=== PATIENT | female | born 1940 | race Caucasian/White ===

== ENCOUNTER 2017-05-01 12:00 | Outpatient (RCR) | payer MEDICARE, OTHER, SELFPAY ==
--- NOTE | 2017-03-31 15:33 | HP.PTEVAL_ITS ---
Patient's Visit Information Jose SAMPSON is a 77 year old F referred to Physical Therapy by Hussein HERRERA with a diagnosis of R tibial stress Fx. Date of Evaluation: 03/31/17 Physical Therapist: Zaire Menendez, PT, - Visit Plan Frequency: 2x /Week Duration: 4-6 Weeks Plan: Aquatic therapy consisting of R LE strengthening, AROM, stretching and core stabilization ex's. - Subjective Subjective: Pt reports she woke up with severe pain in her R ayers one morning. Pt notes her pain had an insidious onset in nature. Pt reports after having an Xray and MRI, it was revealed she had a stress fracture in her R tibia. Pt reports she did go to [place] in December, and notes she did do a lot of walking which may have increased her pain. Pt has no LE radiculopathy at this time. Pt notes sleep diff secondary to pain. Pt reports all WB'ing acitivity provokes her pain. Pt reports resting it, taking Aleve, and icing it helps to make it feel better. Pt does have stairs at home, negotiates them one step at a time. 5/10 at rest, 10/10 at worst (walking on it a lot) - Pain R knee Pain Intensity (Out of 10): 5 Pain Intensity Range: 10 - Objective Neuro: B LE sensation is WNL to light touch. B achilles reflex= 1/3. Palpation : Pt is very tender along the ant/med tibia. No obvious deformity noted at this time. Girth at joint line: L knee 36 cm, R knee 38 cm. ROM: L knee 0-130 degrees, R knee 0-10-130 degrees. MMT: L knee 5/5 throughout, R knee 3+/5 and painful with all testing - Goals Goal 1:: Decrease R knee pain x 50% to aid with sleep Goal Time Frame: 4-6 Weeks Goal 2:: Increase R knee ext ROM x 5-10 degrees to aid with restoring a more normalized gait pattern Goal Time Frame: 4-6 Weeks Goal 3:: Increase R knee strength x 1 grade to aid with stair negotiation Goal Time Frame: 4-6 Weeks Goal 4:: I with HEP Goal Time Frame: 4-6 Weeks - Rehabilitation Potential Physical Therapy Diagnosis: R LE pain, weakness, and limited mobility secondary to L tibial stress Fx Rehabilitation Potential: Good - Anticipated Interventions Patient/Client Instruction: Educate patient on: Condition, Plan of Care For the Purpose of:: To improve self management Therapeutic Exercise to Include: Strength training, Endurance training, Flexibilty training, In an aquatic setting, Dynamic Lumbar Stabilization For the Purpose of:: To decrease pain, To increase ROM, To improve muscle performance and motor function Thank you for the opportunity to evaluate your patient. For Medicare and Medicare HMO plans, please review the plan of care and approve it. It will need to be FAXED BACK to us at [phone] for Medicare purposes. Please let me know if there are questions or concerns regarding this plan of care. Physician Signature: Date:
--- NOTE | 2017-05-01 12:26 | HP.PTDCSUM_ITS ---
HP - PT D/C Summary It has been my pleasure to treat Jose SAMPSON under orders from DR.CRANNE Nicholas for the diagnosis of R tibial stress Fx for a total of 9 visit (s). Discharge Date: Please see the following information for a summary of their discharge status. - Subjective Subjective: Pt reports mild pain this date. Not sure if Rx has been helping - Pain R knee Pain Intensity (Out of 10): 3 - Objective Objective/Function: R knee pain 05/17 this date. R knee ext ROM= -2 degrees. R knee strength: flex= 5/5, ext= 4/5. Pt is I with HEP. Pt is still progressing towards Rx goals for strength and pain - Goals Goal 1:: Decrease R knee pain x 50% to aid with sleep Goal Progress: Progressing Goal 2:: Increase R knee ext ROM x 5-10 degrees to aid with restoring a more normalized gait pattern Goal Progress: Goal Met Goal 3:: Increase R knee strength x 1 grade to aid with stair negotiation Goal Progress: Progressing Goal 4:: I with HEP Goal Progress: Goal Met - Plan Plan: Discontinue to HEP - D/C Information If there are questions or concerns regarding this patient's physical therapy, please feel free to call me at [phone]. Thank you for the referral of this patient. Sincerely, Zaire Menendez, PT,
== END 2017-05-01 19:00 | disposition home or self-care (01) ==
LOC: PT 12:00
PROVIDERS: Family Provider Family Medicine; PCP Family Medicine; Visit Provider Family Medicine
DX: M84.361D Stress fracture, right tibia, subsequent encounter for fracture with routine healing (principal)
CPT/HCPCS: 97113; 97161; 97530

== ENCOUNTER → 2017-05-07 09:52 | Outpatient (CLI) | payer MEDICARE, OTHER, SELFPAY ==
[2017-05-07 13:11] LABS: Anion Gap 10 (5-15); BUN 18 mg/dL (7-18); BUN/Creat Ratio 21.8 RATIO (10-20); Calcium,Total 8.8 mg/dL (8.5-10.1); Chloride 100 mmol/L (98-107); Cholesterol 152 mg/dL (200); Creatinine, Serum 0.83 mg/dL (0.55-1.02); EST Glomerular Filtration Rate 71 mL/min (>60); Est Glom Filt Rate - Afr Amer 86 mL/min (>60); Glucose 218 mg/dL (74-106); High Density Lipoprotein 51 mg/dL; Potassium 3.5 mmol/L (3.5-5.1); Sodium Level 139 mmol/L (136-145); Triglycerides 184 mg/dL; Very Low Density Lipoprotein 37 mg/dL (5-40)
[2017-05-07 13:13] LABS: Hemoglobin A1c 9.3 % (4.2-6.3)
== END ==
PROVIDERS: Family Provider Family Medicine; PCP Family Medicine; Visit Provider Family Medicine
DX: E11.9 Type 2 diabetes mellitus without complications (principal); I10 Essential (primary) hypertension; E78.5 Hyperlipidemia, unspecified
CPT/HCPCS: 36415; 80048; 80061; 83036

== ENCOUNTER → 2017-09-18 16:21 | Outpatient (CLI) | payer MEDICARE, OTHER, SELFPAY ==
--- NOTE | 2017-09-18 16:24 | BI_ITS ---
MAMMOGRAPHY - BILATERAL SCREENING REASON FOR EXAM: Female, 77 years old. Routine annual screening examination. PERTINENT HISTORY: Non-contributory. TECHNIQUE: Digital bilateral breast joe (3D mammographic acquisition) in the CC and MLO projections. 2-D mediolateral oblique (MLO) and craniocaudad (CC) views of both breasts were obtained. CAD: Full Field Digital Mammography with Computer Added Detection was performed. COMPARISON: Comparison is made with prior study dated July 15, 2016 and June 23, 2015. FINDINGS: Breast Composition: There are scattered areas of fibroglandular density. There are no dominant masses or suspicious calcifications. No other significant abnormalities are identified. There has been no significant change since the prior study. BI/SCREENING MAMM (CAD), BILAT IMPRESSION: Stable bilateral screening mammogram. Yearly follow-up mammogram recommended. (A) ASSESSMENT CATEGORY: BIRADS Category 1: Negative. A letter regarding these results will be sent to the patient by the facility within 30 days. Approximately 10% of breast cancers are not detected by mammography. A normal mammogram should not delay biopsy of a clinically suspicious abnormality. [id number] Electronically Signed: Magdy Santiago MD at 8:02 EDT Tel [phone], Service support ,
== END ==
PROVIDERS: Family Provider Family Medicine; PCP Family Medicine; Visit Provider Family Medicine
DX: Z12.31 Encounter for screening mammogram for malignant neoplasm of breast (principal)
CPT/HCPCS: 77063; 77067

== ENCOUNTER → 2018-02-26 10:26 | Outpatient (CLI) | payer MEDICARE, OTHER, SELFPAY ==
--- NOTE | 2018-02-26 10:29 | STE_ITS ---
Reason For Study: Chest Pain; LEE Stress Results Protocol: Salvatore Protocol Maximum Predicted HR: 141 bpm Target HR: 120 bpm % Maximum Predicted HR: 57 % Heart Stage Duration Rate BP Comment (mm:ss) (bpm) Baseline 70 122/64No Chest Pain Salvatore Protocol Stage No Chest Pain; Moderate to Severe Dyspnea; Audible I 3:00 70 122/64Wheezes Recovery 81 130/66No Chest Pain; Lungs CTA Stress Duration: 3:00 mm:ss Maximum Stress HR: 81 bpm METS: 4 Baseline Echocardiogram Findings The estimated ejection fraction is 65 %. Stress Echo Wall motion Data Resting WM Intermediate WM Stress WM Resting Wall Motion Wall Motion Stress No regional wall motion No regional wall motion abnormalities noted. abnormalities noted. EKG Data Normal intervals are noted. The patient exercised according to the regular Salvatore protocol for a total duration of 3:00. The maximum heart rate attained was 137 beats per minute. This was 97% of maximum predicted heart rate. The patient exercised into stage 1 of the Salvatore protocol. During stress, there were no ST or T wave changes noted to suggest ischemia. No clinical angina was noted. Interpretation Summary The estimated ejection fraction is 65 %. Normal, adequate, treadmill echocardiogram. Negative for ischemia by EKG and echocardiographic criteria. No anginal symptoms noted. Rare P AC noted. Appropriate blood pressure response to exercise. Poor exercise capacity for age. Test terminated due to dyspnea which may be an anginal equivalent. Final LVEF is 75%. No complications. Ordering Physician: Mat Hercules Referring Physician: Jono Zambrano Performed By: Dany Salazar RCS
== END ==
PROVIDERS: Family Provider Family Medicine; PCP Family Medicine; Referring Provider Family Medicine; Visit Provider Family Medicine
DX: R06.09 Other forms of dyspnea (principal)
CPT/HCPCS: 93017; 93350

== ENCOUNTER → 2018-05-26 11:09 | Outpatient (CLI) | payer MEDICARE, OTHER, SELFPAY ==
[2018-05-26 12:48] LABS: Hemoglobin A1c 8.9 % (4.2-6.3)
[2018-05-26 13:34] LABS: Anion Gap 10 (5-15); BUN 14 mg/dL (7-18); BUN/Creat Ratio 17.3 RATIO (10-20); Calcium,Total 8.7 mg/dL (8.5-10.1); Chloride 102 mmol/L (98-107); Cholesterol 171 mg/dL (200); Creatinine, Serum 0.81 mg/dL (0.55-1.02); EST Glomerular Filtration Rate 73 mL/min (>60); Est Glom Filt Rate - Afr Amer 88 mL/min (>60); Glucose 250 mg/dL (74-106); High Density Lipoprotein 56 mg/dL; Potassium 3.4 mmol/L (3.5-5.1); Sodium Level 139 mmol/L (136-145); Triglycerides 214 mg/dL; Very Low Density Lipoprotein 43 mg/dL (5-40)
== END ==
PROVIDERS: Family Provider Family Medicine; PCP Family Medicine; Referring Provider Family Medicine; Visit Provider Family Medicine
DX: E11.9 Type 2 diabetes mellitus without complications (principal); E78.5 Hyperlipidemia, unspecified
CPT/HCPCS: 36415; 80048; 80061; 83036

== ENCOUNTER → 2018-10-07 | Outpatient (CLI) | payer MEDICARE, OTHER, SELFPAY ==
--- NOTE | 2018-10-07 15:28 | BI_ITS ---
MAMMOGRAPHY - BILATERAL SCREENING REASON FOR EXAM: Female, 78 years old. Routine annual screening examination. PERTINENT HISTORY: Non-contributory. TECHNIQUE: Digital bilateral breast sonia (3D mammographic acquisition) in the CC and MLO projections. 2-D mediolateral oblique (MLO) and craniocaudad (CC) views of both breasts were obtained. CAD: Full Field Digital Mammography with Computer Added Detection was performed. COMPARISON: Comparison is made with prior study dated September 18, 2017 and July 15, 2016. FINDINGS: Breast Composition: There are scattered areas of fibroglandular density. There are no dominant masses or suspicious calcifications. No other significant abnormalities are identified. There has been no significant change since the prior study. BI/SCREEN MAMM (CAD) W/SONIA BILAT IMPRESSION: Stable bilateral screening mammogram. Yearly follow-up mammogram recommended. (A) ASSESSMENT CATEGORY: BIRADS Category 1: Negative. A letter regarding these results will be sent to the patient by the facility within 30 days. Approximately 10% of breast cancers are not detected by mammography. A normal mammogram should not delay biopsy of a clinically suspicious abnormality. [id number] Electronically Signed: Magdy Santiago, at 9:32 EDT , Service support ,
== END | disposition home or self-care (01) ==
LOC: OPBI 15:27
PROVIDERS: Family Provider Family Medicine; PCP Family Medicine; Referring Provider Family Medicine; Visit Provider Family Medicine
DX: Z12.31 Encounter for screening mammogram for malignant neoplasm of breast (principal)
CPT/HCPCS: 77063; 77067

== ENCOUNTER → 2018-12-23 | Outpatient (CLI) | payer MEDICARE, OTHER, SELFPAY ==
[2018-12-23 12:44] LABS: Absolute Lymphocyte Count 1.71 X10^3/uL (0.83-4.51); Absolute Neutrophil Count 2.8 X10^3/uL (2.0-7.7); Basophil# 0.08 X10^3/uL; Basophil% 1.5 % (0-1); Eosinophils% 5.8 % (0-5); Hematocrit 38.6 % (37-47); Hemoglobin 12.3 g/dL (12.0-15.0); Lymphocyte # 1.71 X10^3/ul (4.0); Lymphocyte % 32.8 % (19-41); Mean Corp Hgb Conc 31.9 g/dL (32-36); Mean Corpuscular Hgb 28.4 pg (27.0-32.0); Mean Corpuscular Volume 89.1 fL (81-99); Mean Platelet Vol. 12.2 fl (6.2-12.0); Monocyte# 0.34 X10^3/uL; Monocyte% 6.5 % (0-10); NRBC Flagged by Analyzer 0 % (0-5); Neutrophil # 2.77 X10^3/uL (2.7-7.7); Neutrophil % 53.2 % (47-70); Platelet Count 207 K/mm3 (150-450); RBC Distribution Width CV 12.6 % (11.6-14.6); RBC Distribution Width SD 41.4 fl (35.1-43.9); Red Blood Count 4.33 M/mm3 (4.2-5.4); White Blood Count 5.2 K/mm3 (4.4-11.0)
[2018-12-23 13:04] LABS: Hemoglobin A1c 6.3 % (4.2-6.3)
[2018-12-23 13:24] LABS: Microalbumin,Random Urine 12.6 mg/L (NO RANGE EST.); Microalbumin:Creatinine Ratio 10.2 mg/g CRE (<30 mg/g CRE)
[2018-12-23 14:44] LABS: Vitamin D,25 Hydroxy 32.5 ng/mL (29.95-100.01)
[2018-12-23 15:00] LABS: AST(SGOT) 21 U/L (15-37); Alanine Aminotransfer ALT/SGPT 41 U/L (13-56); Albumin, Serum 3.6 g/dL (3.2-5.0); Alkaline Phosphatase 93 U/L (45-117); Anion Gap 8 (5-15); BUN 11 mg/dL (7-18); BUN/Creat Ratio 15.1 RATIO (10-20); Calcium,Total 8.9 mg/dL (8.5-10.1); Chloride 103 mmol/L (98-107); Cholesterol 118 mg/dL (200); Creatinine, Serum 0.73 mg/dL (0.55-1.02); EST Glomerular Filtration Rate 82 mL/min (>60); Est Glom Filt Rate - Afr Amer 99 mL/min (>60); Globulin 3.5 g/dL (2.2-4.2); Glucose 225 mg/dL (74-106); High Density Lipoprotein 47 mg/dL; Potassium 3.7 mmol/L (3.5-5.1); Protein, Total 7.1 g/dL (6.4-8.2); Sodium Level 140 mmol/L (136-145); Thyroid Stim Hormone (TSH) 3.22 uIU/mL (0.358-3.74); Triglycerides 163 mg/dL; Very Low Density Lipoprotein 33 mg/dL (5-40)
== END | disposition home or self-care (01) ==
LOC: MTLAB 10:36
PROVIDERS: Family Provider Family Medicine; PCP Family Medicine; Referring Provider Family Medicine; Visit Provider Family Medicine
DX: I10 Essential (primary) hypertension (principal); E11.9 Type 2 diabetes mellitus without complications; E78.5 Hyperlipidemia, unspecified; E55.9 Vitamin D deficiency, unspecified
CPT/HCPCS: 36415; 80053; 80061; 82043; 82306; 82570; 83036; 84443; 85025

== ENCOUNTER → 2019-04-16 | Outpatient (CLI) | payer MEDICARE, OTHER, SELFPAY ==
--- NOTE | 2019-04-16 08:30 | MRI_ITS ---
STUDY: MRI BRAIN WITH AND WITHOUT CONTRAST REASON FOR EXAM: Female, 79 years old. slurred speech, tongue deviation since middle of 2019 TECHNIQUE: Standardized multiplanar fat and water weighted pulse sequences were obtained. IV doteram 13ml was administered for the contrast portion of the examination. COMPARISON: CT head 18 Jul 2010 FINDINGS: Normal size of the ventricles and extra-axial spaces for the patient''s age. Normal white matter tracts of the supratentorial brain. Normal bilateral basal ganglia. Normal thalami. There is no extra-axial fluid accumulation. Normal flow voids within the major intracranial circulation suggesting patency by spin echo criteria. Normal venous enhancement. There is no enhancing intra-axial or extra-axial abnormality. Normal sella turcica, pituitary gland, infundibular stalk, optic chiasm and hypothalamus. Normal tectal plate and pineal gland. Normal midbrain, juliane and medulla. Normal cerebellum. Normal basal cisterns. Normal bilateral temporal bones. Normal bilateral internal auditory canals. Enhancement is normal. There are posterior scalp cutaneous lesions, possibly sebaceous cysts. MRI/Brain W/WO Contrast IMPRESSION: 1. No infarct. 2. Unremarkable brain. Electronically Signed: Jose Stone, at 10:06 EST Tel , Service support ,
[2019-04-16 09:40] LABS: CREATININE FINGERSTICK 0.7 mg/dL (0.55-1.02); EGFR FINGERSTICK > 60.0000 mL/min (>60)
== END | disposition home or self-care (01) ==
LOC: MRI 08:00
PROVIDERS: PCP Family Medicine; Referring Provider Family Medicine; Visit Provider Family Medicine
DX: R47.81 Slurred speech (principal)
CPT/HCPCS: 70553; A9575

== ENCOUNTER → 2019-04-29 14:39 | Outpatient (CLI) | payer MEDICARE, OTHER, SELFPAY ==
--- NOTE | 2019-04-29 14:42 | CT_ITS ---
STUDY: CT BRAIN WITH AND WITHOUT CONTRAST REASON FOR EXAM: Female, 79 years old. LT SIDED FACE PAIN, NKI, SPEECH IMPAIRMENT RADIATION DOSAGE (If Supplied By Facility): CTDIvol = ( 44.99 ) mGy, DLP = ( 1530.36 ) mGycm TECHNIQUE: Transaxial CT imaging of the brain was performed pre and post contrast administration. The examination was performed with intravenous administration of IV 100mL Isovue-370. Individualized dose optimization techniques were used for this CT. COMPARISON: CT dated July 18, 2010 and MRI the brain dated every 2019 FINDINGS: There are scattered subcutaneous partially calcified nodules most consistent with underlying trichilemmal cysts Normal calvarium. There is mild cerebral atrophy with widening of the extra-axial spaces and ventricular dilatation. Normal white matter tracts of the cerebral hemispheres. Normal basal ganglia and thalami. Normal brainstem. There is mild cerebellar atrophy. There is no intracranial hemorrhage. There are no findings of an acute ischemic infarction. Normal visualized paranasal sinuses. CT/Brain/Head W/WO Contrast IMPRESSION: Chronic involutional changes of the brain. No acute intracranial process. Electronically Signed: Yana Anaya MD at 22:51 EST Tel , Service support ,
--- NOTE | 2019-04-29 14:43 | CT_ITS ---
STUDY: CT SOFT TISSUE NECK WITH CONTRAST REASON FOR EXAM: Female, 79 years old. LT SIDED FACE PAIN, NKI, SPEECH IMPAIRMENT RADIATION DOSAGE (If Supplied By Facility): CTDIvol = ( 20.00 ) mGy, DLP = ( 484.27 ) mGycm TECHNIQUE: The patient was scanned in a multi-detector CT scanner. High resolution transaxial imaging was performed following intravenous administration of IV 100mL Isovue-370. Sagittal and coronal images were reconstructed. Individualized dose optimization techniques were used for this CT. COMPARISON: None. FINDINGS: Normal bilateral parotid glands. Normal bilateral dental manager spaces. Normal bilateral parapharyngeal spaces. Normal bilateral carotid spaces. Normal bilateral sublingual and submandibular glands and spaces. Normal visualized nasopharynx. Normal retropharyngeal space. Normal perivertebral space. Normal visualized bilateral faucial tonsils. There appears to be atrophy of the left hemitongue with lobulation at the right tongue base and obliteration of the vallecula (axial image #46 series 3). Evaluation is limited secondary to dental artifact The visualized cervical lymph nodes (levels I-) are within normal size limits, and maintain normal morphology. Normal epiglottis, bilateral vallecula and hypopharynx. The pre-epiglottic and paraglottic adipose spaces are normal. Normal visualized bilateral piriform sinuses, aryepiglottic folds, vocal cords, and arytenoid-cricoid articulations. Normal subglottic trachea. Normal bilateral lobes of the thyroid gland. Normal visualized pulmonary apices. Normal visualized paranasal sinuses. There is multilevel degenerative changes of the cervical spine. CT/Soft Tissue Neck WITH Contrast IMPRESSION: Left hemitongue atrophy. Right tongue base lobulation, neoplastic disease is not excluded. Correlation with direct visualization is recommended. No lymphadenopathy Electronically Signed: Jayce Wood MD at 9:47 EST Tel , Service support ,
== END ==
PROVIDERS: PCP Family Medicine; Referring Provider Otolaryngology; Visit Provider Otolaryngology
DX: G50.1 Atypical facial pain (principal)
CPT/HCPCS: 70470; 70491; Q9967

== ENCOUNTER → 2019-05-13 | Outpatient (CLI) | payer MEDICARE, OTHER, SELFPAY ==
--- NOTE | 2019-05-13 09:58 | US_ITS ---
HISTORY: Goiter. Left lobe removed. Comparison imaging is a CT scan of the neck from April 29, 2019. 56 images. Findings: The left lobe of the thyroid gland has been resected. The remaining thyroid isthmus measures 2 mm and is slightly heterogeneous. The left lobe of the thyroid gland measures 2 x 4.4 x 1.9 cm. The left lobe of the thyroid gland is heterogeneous. Anteriorly, within the left lobe of the thyroid gland, there is a lesion. This lesion is almost completely cystic. It is hypoechoic relative to the adjacent parenchyma. It is wider than tall. Its margins are smooth. No associated calcifications are perceived. This lesion has a TI-RADS score of 2, and is benign A second lesion is present more posteriorly within the right lobe of the thyroid gland. This lesion measures 9 x 9 x 6 mm. This lesion is mixed cystic and solid. It is mostly hypoechoic. It is tolerable than wide. Its margins are smooth. Macrocalcifications are present. This lesion has a TI- RADS score of 7. Another tiny cystic lesion is present within the right lobe of the thyroid gland towards the isthmus. It measures maximally 4 mm. US/Thyroid IMPRESSION: Heterogeneous echotexture to the right lobe of the thyroid gland suggestive of multinodular goiter. Importantly one of the lesions within the left lobe of the thyroid gland measures 9 x 9 x 6 mm. Is mostly cystic but with peripheral calcifications. This lesion has a TI-Rads score of 7. This lesion needs a follow-up every year for 5 years to assure benignity. at 0550 Reported and signed by: Trevon Jauregui MD Electronically Signed: Trevon Jauregui MD at 5:49 EST Tel , Service support ,
== END | disposition home or self-care (01) ==
LOC: US 09:57
PROVIDERS: PCP Family Medicine; Referring Provider Otolaryngology; Visit Provider Otolaryngology
DX: E04.9 Nontoxic goiter, unspecified (principal)
CPT/HCPCS: 76536

== ENCOUNTER → 2019-05-24 | Outpatient (CLI) | payer MEDICARE, OTHER, SELFPAY ==
--- NOTE | 2019-05-24 13:00 | SP.MBSS_ITS ---
PRIMARY / SECONDARY DIAGNOSIS: dysphagia (R13.10) REFERRING PHYSICIAN: Dr. Mat Escalante MD CURRENT DIET: regular textures, thin liquids DENTITION: natural MENTAL STATUS: sufficient for participation RESPIRATORY STATUS: O2 via room air REASON FOR REFERRAL: The Patient is an 79 year old female referred for a modified barium swallow (MBS) study to objectively assess the Patients oropharyngeal swallow function under fluoroscopy secondary to reported globus sensation with new onset left lingual paresthesia, with the Patient unable to provide clarity as to the etiology of cause (limited information in EMR) MEDICAL HISTORY: Per Patient report: status post partial thyroidectomy, depression, hyperlipidemia PREVIOUS MODIFIED BARIUM SWALLOW STUDY: None ADDITIONAL OBJECTIVE ASSESSMENT RESULTS: 04/16/2019 MRI revealed no evidence of infarction; unremarkable brain. 04/29/[address] revealed chronic involutional changes of the brain; no acute intracranial process. 04/30/[address] revealed left hemitongue atrophy; right tongue base lobulation, neoplastic disease is not excluded; no lymphadenopathy 06/01/2015 barium swallow study revealed trapping of the 12 mm tablet at the gastroesophageal junction; calcified gallstone. ASSESSMENT PARAMETERS: The Patient participated in a Modified Barium Swallow (MBS) study on 05/24/2019. This study was recorded in the lateral view and images were sent to PACs for storage. Scoring was completed through each trial using the 8- point Penetration-Aspiration Scale (PAS) and summarized via the Videofluoroscopic Dysphagia Scale (VDS) and the Bolus Residue Scale (BRS), with severity scoring through the Dysphagia Severity Rating Scale (DSRS) and the Swallowing Performance Scale (SPS), and recommended diet textures through the International Dysphagia Diet Standardisation Initiative (IDDSI) RESULTS OF THE EVALUATION: The Patient presents with mild oropharyngeal dysphagia (DSRS: 2; SPS: 3) with shallow penetration and inconsistent ejection of thin liquids OBJECTIVE ASSESSMENT OF SWALLOW FUNCTION (QUANTITATIVE ? PER TRIAL): PENETRATION / ASPIRATION SCALE (CHEN): 1 = does not enter airway 2 = enters airway/above vocal folds/ejected 3 = enters airway/above vocal folds/not ejected 4 = enters airway/contacts vocal folds/ejected 5 = enters airway/contacts vocal folds/not ejected 6 = enters airway/below vocal folds/ejected 7 = enters airway/below vocal folds/not ejected despite effort 8 = enters airway/below vocal folds/no effort PENETRATION / ASPIRATION SCALE (SCORE): Thin liquid - 5 mL tsp.: 1 Thin liquids via cup (single sip): 1 Thin liquids via cup (single sip): 3 Thin liquids via cup (single sip): 3 Thin liquids via straw (sequential swallows): 2 Pudding via spoon: 1 Regular textured cookie: 1 Thin liquids via straw (single sip): 2 Thin liquids via straw (single sip): 3 Thin liquids via straw (chin tuck): 3 Thin liquids via straw (chin tuck): 2 Thin liquids via straw (chin tuck): 2 OBJECTIVE ASSESSMENT OF SWALLOW FUNCTION (QUANTITATIVE ? AGGREGATE): VIDEOFLOROSCOPIC DYSPHAGIA SCALE (VDS): LIP CLOSURE: 0 (of 4) Intact BOLUS FORMATION: 3 (of 6) Inadequate MASTICATION: 0 (of 8) Intact APRAXIA: 0 (of 4.5) None TONGUE TO PALATE CONTACT: 0 (of 10) Intact PREMATURE BOLUS LOSS: 1.5 (of 4.5) <10% ORAL TRANSIT TIME: 0 (of 3) < 1.5s TRIGGERING OF PHARYNGEAL SWALLOW: 4.5 (of 4.5) Delayed VALLECULAR RESIDUE: 4 (of 6) 10-50% LARYNGEAL ELEVATION: 9 (of 9) Impaired PYRIFORM SINUS RESIDUE: 4.5 (of 13.5) <10% COATING OF PHARYNGEAL WALL: 0 (of 9) No PHARYNGEAL TRANSIT TIME: 0 (of 6) <1.0s ASPIRATION: 6 (of 12) Supraglottic penetration BOLUS RESIDUE SCALE (BRS): 4 (of 6) residue in valleculae and piriforms OBJECTIVE ASSESSMENT OF SWALLOW FUNCTION (SEVERITY GRADING): DYSPHAGIA SEVERITY RATING SCALE (DSRS): 2 (mild) SWALLOWING PERFORMANCE SCALE (SPS): 3 (mild) OBJECTIVE ASSESSMENT OF SWALLOW FUNCTION (QUALITATIVE): ORAL PREPARATORY PHASE: prolonged mastication with initial anterior munching quality, though able to eventually break down solid textures sufficiently; sufficient anterior oral containment during oral manipulation; preserved management of breathing / bolus formation. ORAL TRANSITIONAL PHASE: no lingual discoordination (no tremor / undulations); fragmented swallowing (piecemeal deglutition) with solid textures (though attributed to left sided bolus residue); impaired oral clearance with left sided bolus consolidation of solid textures; mild premature posterior bolus loss with thin liquids on one occasion, otherwise sufficient containment. PHARYNGEAL PHASE: mild pharyngeal phase dyssynchrony contributing to prandial penetration of thin liquids; mild reduction in hyolaryngeal excursion with inconsistent laryngeal vestibule pressure generated to expel penetrated material; mild pharyngeal dysmotility complicated by incomplete epiglottic deflection (vallecular residue) and pharyngeal phase synchrony (post prandial pyriform residue on one occasion), though otherwise sufficient pharyngeal motility; no signs of velopharyngeal impairments; ESOPHAGEAL PHASE: no obvious esophageal phase abnormalities observed. 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, no impact on pharyngoesophageal motility; noted calcification along the anterior vocal folds and inferior larynx, did not significantly impact image quality; RESPONSE TO STRATEGIES: all deficits managed sufficiently with reduction in bolus rate / volume adjustments, appearing to self-managing post prandial oral residue sufficiently; no demonstrated benefit from execution of the chin tuck posture INTERVENTION RECOMMENDATIONS AND CONSIDERATIONS: The Patient may benefit from continued skilled speech-language intervention targeting diet texture management and training / implementation of recommended compensatory strategies; training and implementation of recommended oropharyngeal strengthening exercises to facilitate improved laryngeal vestibule closure / pressure, though it is important to note that it will be difficult to anticipate the Patients prognosis for improvement with no clear etiology of cause; will follow through the outpatient caseload to further determine the appropriateness for intervention. POST ASSESSMENT EDUCATION: Results and recommendations were discussed with the Patient immediately following MBS completion, with the Patient verbalizing understanding and agreement with all recommendations and education provided. DIET TEXTURE RECOMMENDATIONS: Will recommend a regular ? soft textured (IDDSI: 6), thin liquid diet (IDDSI: 0) diet RECOMMENDED COMPENSATORY STRATEGIES: Check for left sided oral consolidation, consider cutting tougher textures into bite sized pieces, reduced bolus volume / rate of ingestion, seated upright at 90 degrees during PO intake, remain upright for 30-60 minutes post meal (GERD precaution) IMAGE COUNT: [id number] Arjun Desir M.A., [employer], CBIS MBSImP Certified, LSVT Certified [facility] Speech-Language Pathology Department [email or web address]
== END | disposition home or self-care (01) ==
LOC: RAD 12:59
PROVIDERS: PCP Family Medicine; Referring Provider Family Medicine; Visit Provider Family Medicine
DX: R13.10 Dysphagia, unspecified (principal)
CPT/HCPCS: 74230; 92611

== ENCOUNTER → 2019-08-06 | Outpatient (CLI) | payer MEDICARE, OTHER, SELFPAY ==
[2019-08-06 18:13] LABS: Vitamin D,25 Hydroxy 36.6 ng/mL
[2019-08-06 18:16] LABS: Hemoglobin A1c 6.3 % (3.8-5.6)
[2019-08-06 18:22] LABS: ALB/GLOB Ratio 1.1 RATIO (0.9-2.4); AST(SGOT) 21 U/L (15-37); Alanine Aminotransfer ALT/SGPT 38 U/L (13-56); Albumin, Serum 3.7 g/dL (3.2-5.0); Alkaline Phosphatase 80 U/L (45-117); Anion Gap 6 (5-15); BUN 15 mg/dL (7-18); BUN/Creat Ratio 19.8 RATIO (10-20); Calcium,Total 9.1 mg/dL (8.5-10.1); Chloride 106 mmol/L (98-107); Cholesterol 111 mg/dL (200); Creatinine, Serum 0.76 mg/dL (0.55-1.02); EST Glomerular Filtration Rate 78 mL/min (>60); Est Glom Filt Rate - Afr Amer 95 mL/min (>60); Globulin 3.3 g/dL (2.2-4.2); Glucose 160 mg/dL (74-106); High Density Lipoprotein 48 mg/dL; Potassium 3.7 mmol/L (3.5-5.1); Sodium Level 140 mmol/L (136-145); Triglycerides 137 mg/dL; Very Low Density Lipoprotein 27 mg/dL (5-40)
== END | disposition home or self-care (01) ==
LOC: MTLAB 15:47
PROVIDERS: PCP Family Medicine; Referring Provider Family Medicine; Visit Provider Family Medicine
DX: E11.9 Type 2 diabetes mellitus without complications (principal); E55.9 Vitamin D deficiency, unspecified; I10 Essential (primary) hypertension; E78.5 Hyperlipidemia, unspecified
CPT/HCPCS: 36415; 80053; 80061; 82306; 83036

== ENCOUNTER → 2019-10-07 | Outpatient (CLI) | payer MEDICARE, OTHER, SELFPAY ==
--- NOTE | 2019-10-07 16:55 | RAD_ITS ---
STUDY: X-RAY - RIGHT SHOULDER REASON FOR EXAM: Female, 79 years old. PATIENT FELL LAST SAVANA. PAIN, SWELLING AND BRUISING IN RIGHT SHOULDER/RIGHT CLAVICLE AREA. TECHNIQUE: 4 view(s) of the shoulder. COMPARISON: None. FINDINGS: There is moderate degenerative arthrosis of the glenohumeral articulation. Normal acromioclavicular joint. Normal acromion. There is demineralization of the humerus and visualized osseous structures. There are wispy soft tissue calcification superior to the right humeral head. There is an oblique fracture of the distal right clavicle with a 1.7 cm cephalad displacement of the proximal fragment relative to the distal fragment. Normal visualized pulmonary apex. RAD/Shoulder min 2 Views IMPRESSION: Moderately severe degenerative changes of the right shoulder joint. Wispy soft tissue calcification is noted superior to the right humeral head. Displaced distal right clavicular fracture. Electronically Signed: Mio Penny MD at 17:23 EDT , Service support ,
--- NOTE | 2019-10-07 17:00 | RAD_ITS ---
STUDY: X-RAY - RIGHT CLAVICLE REASON FOR EXAM: Female, 79 years old. PATIENT FELL LAST SAVANA. PAIN, SWELLING AND BRUISING IN RIGHT SHOULDER/RIGHT CLAVICLE AREA. TECHNIQUE: 2 view(s) of the clavicle. COMPARISON: None. FINDINGS: There is a displaced oblique comminuted fracture of the distal right clavicle with approximately 1.7 cm cephalad displacement of the major proximal fragment relative to the major distal fragment. Normal acromioclavicular articulation. Normal visualized sternoclavicular articulation. Normal visualized pulmonary apex. RAD/Clavicle IMPRESSION: Displaced distal right clavicular fracture. Electronically Signed: Mio Penny MD at 17:23 EDT , Service support ,
== END | disposition home or self-care (01) ==
LOC: MTRAD 16:53
PROVIDERS: PCP Family Medicine; Referring Provider Family Medicine; Visit Provider Family Medicine
DX: M25.511 Pain in right shoulder (principal); M89.8X1 Other specified disorders of bone, shoulder
CPT/HCPCS: 73000; 73030

== ENCOUNTER 2019-10-13 12:30 | Outpatient (RCR) | payer MEDICARE, OTHER, SELFPAY ==
--- NOTE | 2019-05-25 10:54 | ST ---
Modified Barium Swallow Study MR#: [id number] Acct: [id number] Name: Jose SAMPSON Rep #: [id number] : 1940 79 From: Arjun Desir M.A., CCC-BUILDER BEAM PRIMARY / SECONDARY DIAGNOSIS: dysphagia (R13.10) REFERRING PHYSICIAN: Dr. Mat Escalante MD CURRENT DIET: regular textures, thin liquids DENTITION: natural MENTAL STATUS: sufficient for participation RESPIRATORY STATUS: O2 via room air REASON FOR REFERRAL: The Patient is an 79 year old female referred for a modified barium swallow (MBS) study to objectively assess the Patients oropharyngeal swallow function under fluoroscopy secondary to reported globus sensation with new onset left lingual paresthesia, with the Patient unable to provide clarity as to the etiology of cause (limited information in EMR) MEDICAL HISTORY: Per Patient report: status post partial thyroidectomy, depression, hyperlipidemia PREVIOUS MODIFIED BARIUM SWALLOW STUDY: None ADDITIONAL OBJECTIVE ASSESSMENT RESULTS: 04/16/2019 MRI revealed no evidence of infarction; unremarkable brain. 04/29/[address] revealed chronic involutional changes of the brain; no acute intracranial process. 04/30/[address] revealed left hemitongue atrophy; right tongue base lobulation, neoplastic disease is not excluded; no lymphadenopathy 06/01/2015 barium swallow study revealed trapping of the 12 mm tablet at the gastroesophageal junction; calcified gallstone. ASSESSMENT PARAMETERS: The Patient participated in a Modified Barium Swallow (MBS) study on 05/24/2019. This study was recorded in the lateral view and images were sent to PACs for storage. Scoring was completed through each trial using the 8-point Penetration-Aspiration Scale (PAS) and summarized via the Videofluoroscopic Dysphagia Scale (VDS) and the Bolus Residue Scale (BRS), with severity scoring through the Dysphagia Severity Rating Scale (DSRS) and the Swallowing Performance Scale (SPS), and recommended diet textures through the International Dysphagia Diet Standardisation Initiative (IDDSI) RESULTS OF THE EVALUATION: The Patient presents with mild oropharyngeal dysphagia (DSRS: 2; SPS: 3) with shallow penetration and inconsistent ejection of thin liquids OBJECTIVE ASSESSMENT OF SWALLOW FUNCTION (QUANTITATIVE ? PER TRIAL): PENETRATION / ASPIRATION SCALE (CHEN): 1 = does not enter airway 2 = enters airway/above vocal folds/ejected 3 = enters airway/above vocal folds/not ejected 4 = enters airway/contacts vocal folds/ejected 5 = enters airway/contacts vocal folds/not ejected 6 = enters airway/below vocal folds/ejected 7 = enters airway/below vocal folds/not ejected despite effort 8 = enters airway/below vocal folds/no effort PENETRATION / ASPIRATION SCALE (SCORE): Thin liquid - 5 mL tsp.: 1 Thin liquids via cup (single sip): 1 Thin liquids via cup (single sip): 3 Thin liquids via cup (single sip): 3 Thin liquids via straw (sequential swallows): 2 Pudding via spoon: 1 Regular textured cookie: 1 Thin liquids via straw (single sip): 2 Thin liquids via straw (single sip): 3 Thin liquids via straw (chin tuck): 3 Thin liquids via straw (chin tuck): 2 Thin liquids via straw (chin tuck): 2 OBJECTIVE ASSESSMENT OF SWALLOW FUNCTION (QUANTITATIVE ? AGGREGATE): VIDEOFLOROSCOPIC DYSPHAGIA SCALE (VDS): LIP CLOSURE: 0 (of 4) Intact BOLUS FORMATION: 3 (of 6) Inadequate MASTICATION: 0 (of 8) Intact APRAXIA: 0 (of 4.5) None TONGUE TO PALATE CONTACT: 0 (of 10) Intact PREMATURE BOLUS LOSS: 1.5 (of 4.5) <10% ORAL TRANSIT TIME: 0 (of 3) < 1.5s TRIGGERING OF PHARYNGEAL SWALLOW: 4.5 (of 4.5) Delayed VALLECULAR RESIDUE: 4 (of 6) 10-50% LARYNGEAL ELEVATION: 9 (of 9) Impaired PYRIFORM SINUS RESIDUE: 4.5 (of 13.5) <10% COATING OF PHARYNGEAL WALL: 0 (of 9) No PHARYNGEAL TRANSIT TIME: 0 (of 6) <1.0s ASPIRATION: 6 (of 12) Supraglottic penetration BOLUS RESIDUE SCALE (BRS): 4 (of 6) residue in valleculae and piriforms OBJECTIVE ASSESSMENT OF SWALLOW FUNCTION (SEVERITY GRADING): DYSPHAGIA SEVERITY RATING SCALE (DSRS): 2 (mild) SWALLOWING PERFORMANCE SCALE (SPS): 3 (mild) OBJECTIVE ASSESSMENT OF SWALLOW FUNCTION (QUALITATIVE): ORAL PREPARATORY PHASE: prolonged mastication with initial anterior munching quality, though able to eventually break down solid textures sufficiently; sufficient anterior oral containment during oral manipulation; preserved management of breathing / bolus formation. ORAL TRANSITIONAL PHASE: no lingual discoordination (no tremor / undulations); fragmented swallowing (piecemeal deglutition) with solid textures (though attributed to left sided bolus residue); impaired oral clearance with left sided bolus consolidation of solid textures; mild premature posterior bolus loss with thin liquids on one occasion, otherwise sufficient containment. PHARYNGEAL PHASE: mild pharyngeal phase dyssynchrony contributing to prandial penetration of thin liquids; mild reduction in hyolaryngeal excursion with inconsistent laryngeal vestibule pressure generated to expel penetrated material; mild pharyngeal dysmotility complicated by incomplete epiglottic deflection (vallecular residue) and pharyngeal phase synchrony (post prandial pyriform residue on one occasion), though otherwise sufficient pharyngeal motility; no signs of velopharyngeal impairments; ESOPHAGEAL PHASE: no obvious esophageal phase abnormalities observed. 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, no impact on pharyngoesophageal motility; noted calcification along the anterior vocal folds and inferior larynx, did not significantly impact image quality; RESPONSE TO STRATEGIES: all deficits managed sufficiently with reduction in bolus rate / volume adjustments, appearing to self-managing post prandial oral residue sufficiently; no demonstrated benefit from execution of the chin tuck posture INTERVENTION RECOMMENDATIONS AND CONSIDERATIONS: The Patient may benefit from continued skilled speech-language intervention targeting diet texture management and training / implementation of recommended compensatory strategies; training and implementation of recommended oropharyngeal strengthening exercises to facilitate improved laryngeal vestibule closure / pressure, though it is important to note that it will be difficult to anticipate the Patients prognosis for improvement with no clear etiology of cause; will follow through the outpatient caseload to further determine the appropriateness for intervention. POST ASSESSMENT EDUCATION: Results and recommendations were discussed with the Patient immediately following MBS completion, with the Patient verbalizing understanding and agreement with all recommendations and education provided. DIET TEXTURE RECOMMENDATIONS: Will recommend a regular ? soft textured (IDDSI: 6), thin liquid diet (IDDSI: 0) diet RECOMMENDED COMPENSATORY STRATEGIES: Check for left sided oral consolidation, consider cutting tougher textures into bite sized pieces, reduced bolus volume / rate of ingestion, seated upright at 90 degrees during PO intake, remain upright for 30-60 minutes post meal (GERD precaution) IMAGE COUNT: [id number] Arjun Desir M.A., CHIDI-BUIL[employer] BE[employer], CBIS MBSImP Certified, LSVT Certified [facility] Speech-Language Pathology Department [email or web address] 05/24/19 1440 <Electronically signed by Arjun Desir M.A., [facility]> Date Arjun Desir M.A. [facility]
--- NOTE | 2019-05-25 11:07 | HP.SP.AD_ITS ---
History - History Date of Eval: 05/25/19 Medical Diagnosis (from RX): Dysarthria Date of Onset of Diagnosis: 03/10/19 Previous speech therapy: No Other Relevant Medical History/Diagnoses/Surgery: Diabetic, Remote wrist surg francois, hysterectomy and cateract surgery. Medications related to this diagnosis: Zoloft, Bupropion, Lipitor, Pentoprazole, metformin, hydrochlorothlazide, lisinopril, insulin, ASA, cinnamon. Hx Smoking: No - Pain Is pain an issue with your current prescribed condition?: No - Personal Occupation: Retired Right Hearing Abillity: Normal Left Hearing Abillity: Normal Visual Assistive Devices: None Patients Living Arrangements: With Significant Other Subjective Oral Motor - Subjective Patient Reports: Slurred Speech, Difficulty being Understood Numbness: Tongue - Comments Comments: Left 1/3 of tongue is numb. Also left corner of the mouth is numb. Objective Oral Motor - Oral Status Dentition: WNL - Labial Impairment: WNL Observation at Rest: WNL Closure: WNL Pucker: WNL Retraction: WNL Alternating Pucker/Retraction: WNL Involuntary Movement noted: No - Lingual Impairment: WNL Protrusion: WNL Lateralization: WNL Involuntary Movement: No - Lingual Comments Comments: Patient was able to complete lingual sweep to the right and mild impaired to the left for clearing sulci. - Jaw Impairment: WNL Opening: WNL Closing: WNL - Respiratory Status Respiratory Status: Room Air Subjective Dysphagia - Current Diet Solids Current Diet: Soft - Current Diet Liquids Current Liquids: Thin Modified Barium Results Hx MBS Report Entered: Yes MBS Results (from prior exam): 05/25/19 10:54 Speech Therapy by Jere Oliver Modified Barium Swallow Study MR#: [id number] Acct: [id number] Name: Jose SAMPSON Rep #:[id number] : 1940 79 From: Arjun Ocasio [facility]-UI ENGINEER PRIMARY / SECONDARY DIAGNOSIS: dysphagia (R13.10) REFERRING PHYSICIAN: Dr. Mat Escalante MD CURRENT DIET: regular textures, thin liquids DENTITION: natural MENTAL STATUS: sufficient for participation RESPIRATORY STATUS: O2 via room air REASON FOR REFERRAL: The Patient is an 79 year old female referred for a modified barium swallow (MBS) study to objectively assess the Patients oropharyngeal swallow function under fluoroscopy secondary to reported globus sensation with new onset left lingual paresthesia, with the Patient unable to provide clarity as to the etiology of cause (limited information in EMR) MEDICAL HISTORY: Per Patient report: status post partial thyroidectomy, depression, hyperlipidemia PREVIOUS MODIFIED BARIUM SWALLOW STUDY: None ADDITIONAL OBJECTIVE ASSESSMENT RESULTS: 04/16/2019 MRI revealed no evidence of infarction; unremarkable brain. 04/29/[address] revealed chronic involutional changes of the brain; no acute intracranial process. 04/30/[address] revealed left hemitongue atrophy; right tongue base lobulation, neoplastic disease is not excluded; no lymphadenopathy 06/01/2015 barium swallow study revealed trapping of the 12 mm tablet at the gastroesophageal junction; calcified gallstone. ASSESSMENT PARAMETERS: The Patient participated in a Modified Barium Swallow (MBS) study on 05/24/2019. This study was recorded in the lateral view and images were sent to PACs for storage. Scoring was completed through each trial using the 8- point Penetration-Aspiration Scale (PAS) and summarized via the Videofluoroscopic Dysphagia Scale (VDS) and the Bolus Residue Scale (BRS), with severity scoring through the Dysphagia Severity Rating Scale (DSRS) and the Swallowing Performance Scale (SPS), and recommended diet textures through the International Dysphagia Diet Standardisation Initiative (IDDSI) RESULTS OF THE EVALUATION: The Patient presents with mild oropharyngeal dysphagia (DSRS: 2; SPS: 3) with shallow penetration and inconsistent ejection of thin liquids OBJECTIVE ASSESSMENT OF SWALLOW FUNCTION (QUANTITATIVE ? PER TRIAL): PENETRATION / ASPIRATION SCALE (CHEN): 1 = does not enter airway 2 = enters airway/above vocal folds/ejected 3 = enters airway/above vocal folds/not ejected 4 = enters airway/contacts vocal folds/ejected 5 = enters airway/contacts vocal folds/not ejected 6 = enters airway/below vocal folds/ejected 7 = enters airway/below vocal folds/not ejected despite effort 8 = enters airway/below vocal folds/no effort PENETRATION / ASPIRATION SCALE (SCORE): Thin liquid - 5 mL tsp.: 1 Thin liquids via cup (single sip): 1 Thin liquids via cup (single sip): 3 Thin liquids via cup (single sip): 3 Thin liquids via straw (sequential swallows): 2 Pudding via spoon: 1 Regular textured cookie: 1 Thin liquids via straw (single sip): 2 Thin liquids via straw (single sip): 3 Thin liquids via straw (chin tuck): 3 Thin liquids via straw (chin tuck): 2 Thin liquids via straw (chin tuck): 2 OBJECTIVE ASSESSMENT OF SWALLOW FUNCTION (QUANTITATIVE ? AGGREGATE): VIDEOFLOROSCOPIC DYSPHAGIA SCALE (VDS): LIP CLOSURE: 0 (of 4) Intact BOLUS FORMATION: 3 (of 6) Inadequate MASTICATION: 0 (of 8) Intact APRAXIA: 0 (of 4.5) None TONGUE TO PALATE CONTACT: 0 (of 10) Intact PREMATURE BOLUS LOSS: 1.5 (of 4.5) <10% ORAL TRANSIT TIME: 0 (of 3) < 1.5s TRIGGERING OF PHARYNGEAL SWALLOW: 4.5 (of 4.5) Delayed VALLECULAR RESIDUE: 4 (of 6) 10-50% LARYNGEAL ELEVATION: 9 (of 9) Impaired PYRIFORM SINUS RESIDUE: 4.5 (of 13.5) <10% COATING OF PHARYNGEAL WALL: 0 (of 9) No PHARYNGEAL TRANSIT TIME: 0 (of 6) <1.0s ASPIRATION: 6 (of 12) Supraglottic penetration BOLUS RESIDUE SCALE (BRS): 4 (of 6) residue in valleculae and piriforms OBJECTIVE ASSESSMENT OF SWALLOW FUNCTION (SEVERITY GRADING): DYSPHAGIA SEVERITY RATING SCALE (DSRS): 2 (mild) SWALLOWING PERFORMANCE SCALE (SPS): 3 (mild) OBJECTIVE ASSESSMENT OF SWALLOW FUNCTION (QUALITATIVE): ORAL PREPARATORY PHASE: prolonged mastication with initial anterior munching quality, though able to eventually break down solid textures sufficiently; sufficient anterior oral containment during oral manipulation; preserved management of breathing / bolus formation. ORAL TRANSITIONAL PHASE: no lingual discoordination (no tremor / undulations); fragmented swallowing (piecemeal deglutition) with solid textures (though attributed to left sided bolus residue); impaired oral clearance with left sided bolus consolidation of solid textures; mild premature posterior bolus loss with thin liquids on one occasion, otherwise sufficient containment. PHARYNGEAL PHASE: mild pharyngeal phase dyssynchrony contributing to prandial penetration of thin liquids; mild reduction in hyolaryngeal excursion with inconsistent laryngeal vestibule pressure generated to expel penetrated material; mild pharyngeal dysmotility complicated by incomplete epiglottic deflection (vallecular residue) and pharyngeal phase synchrony (post prandial pyriform residue on one occasion), though otherwise sufficient pharyngeal motility; no signs of velopharyngeal impairments; ESOPHAGEAL PHASE: no obvious esophageal phase abnormalities observed. 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, no impact on pharyngoesophageal motility; noted calcification along the anterior vocal folds and inferior larynx, did not significantly impact image quality; RESPONSE TO STRATEGIES: all deficits managed sufficiently with reduction in bolus rate / volume adjustments, appearing to self-managing post prandial oral residue sufficiently; no demonstrated benefit from execution of the chin tuck posture INTERVENTION RECOMMENDATIONS AND CONSIDERATIONS: The Patient may benefit from continued skilled speech-language intervention targeting diet texture management and training / implementation of recommended compensatory strategies; training and implementation of recommended oropharyngeal strengthening exercises to facilitate improved laryngeal vestibule closure / pressure, though it is important to note that it will be difficult to anticipate the Patients prognosis for improvement with no clear etiology of cause; will follow through the outpatient caseload to further determine the appropriateness for intervention. POST ASSESSMENT EDUCATION: Results and recommendations were discussed with the Patient immediately following MBS completion, with the Patient verbalizing understanding and agreement with all recommendations and education provided. DIET TEXTURE RECOMMENDATIONS: Will recommend a regular ? soft textured (IDDSI: 6), thin liquid diet (IDDSI: 0) diet RECOMMENDED COMPENSATORY STRATEGIES: Check for left sided oral consolidation, consider cutting tougher textures into bite sized pieces, reduced bolus volume / rate of ingestion, seated upright at 90 degrees during PO intake, remain upright for 30-60 minutes post meal (GERD precaution) IMAGE COUNT: [id number] Arjun Desir M.A., CHIDI-UI ENGINEER, CBIS MBSImP Certified, LSVT Certified [facility] Speech-Language Pathology Department [email or web address] 05/24/19 1440 <Electronically signed by Arjun Desir M.A., CCC-S LP> Date _ Arjun Desir M.A. CCC-UI ENGINEER Initialized on 03/17/20 10:54 - END OF NOTE Dysphagia Assessment - Swallowing Impairment Contributing Factors to Swallowing Impairment: Reduced Oral Strength/Coordination/Sensation, Reduced Laryngeal Excursion - Impact Impact on Safety & Functioning: Risk for Aspiration - Recommendations Modified Barium Swallow/Cookie Swallow Recommended: No Swallowing Treatment: No - Diet Texture Recommendations Solids Other: Soft Liquids: Thin - Safety Saftey Precautions/Swallowing Recommendations (Check all that Apply): Upright Position at Least 30 Minutes After Meals, Small Sips & Bites when Eating Subjective Dysarthria/Motor - Subjective Subjective: Patient reported that her speech has not changed since March 10. She reported that speaking is always effected. Objective Dysarthira/Motor - Speech Intelligibility Single Words: Mild Phrases: Mild Sentences: Mild Conversation: Mild - Volume Volume: WNL - Sounds Sounds in Error: /s/ becomes sh. /z/ is also impacted. Those two sounds are the only sounds impacted. The patient's intelligibility was 100% with no repetition needed. - Observation Observation of Apraxia of Speech: No Oral Groping for Placement: No Inconsistent Errors: No - Awareness/Strategy Use Aware of motor speech impairment, unable to use strategies to improve intelligibility: Yes Plan - Plan Plan: Direct treatment is not warranted at this time. Patient was provided with swallowing exercises that she is able to complete indpendently. She sees a neurologist in June and a followup session is schedule after that regarding etiology and change is function. ENT questioned (per the patient) if it was due to medication. - Frequency Frequency: Monthly Education - Patient has Indicated that the Following Identified Educational Needs: None The Patient has indicated that they have no educational or learning abilities that may effect their care.: Yes - Patient Instruction Patient Education: Treatment Plan, Home Exercise Program Person Taught: Patient Teaching Method: Discussion Response to teaching: Verbalize understanding
--- NOTE | 2019-09-17 10:52 | HP.SP.ADRE ---
Previous/Current Goals - Goals 1-5 Previous Goal #1: Patient will produce /s,z/ in words, phrases and sentences with 80% with minimal cues. Goal 1 Status: Initially pt was unable to do /s/ and /z/ at all. Pt is now doing: s in words: 80% accuracy. s in sentences: 75%. z in words: 70%. z in sentences: 75%. s blend words: 60%. Pt still needs maximal cueing, but she is able to hear when she says the sound incorrectly. History - History Date of Eval: 03/26/19 Medical Diagnosis (from RX): Dysarthria Date of Onset of Diagnosis: 03/10/19 Previous speech therapy: No Other Relevant Medical History/Diagnoses/Surgery: I ahve been present for sessions with student therapist. Nancy Garrido M.A., CCC-NEEDLE PUNCH OPERATOR Medications related to this diagnosis: Pt recently in the last month was diagnosed with Tardive Dyskinesia and pt is waiting insurance approval to begin a new medication. Hx Smoking: No - Pain Is pain an issue with your current prescribed condition?: No - Personal Occupation: Retired Right Hearing Abillity: Normal Left Hearing Abillity: Normal Visual Assistive Devices: None Patients Living Arrangements: With Significant Other Subjective Oral Motor - Subjective Patient Reports: Slurred Speech, Difficulty being Understood Numbness: Tongue - Comments Comments: Left 1/3 of tongue is numb. Also left corner of the mouth is numb. Objective Oral Motor - Oral Status Dentition: WNL - Labial Impairment: WNL Observation at Rest: WNL Closure: WNL Pucker: WNL Retraction: WNL Alternating Pucker/Retraction: WNL Involuntary Movement noted: No - Lingual Impairment: WNL Protrusion: WNL Lateralization: WNL Involuntary Movement: No - Lingual Comments Comments: Patient was able to complete lingual sweep to the right and mild impaired to the left for clearing sulci. - Jaw Impairment: WNL Opening: WNL Closing: WNL - Respiratory Status Respiratory Status: Room Air Subjective Dysphagia - Current Diet Solids Current Diet: Soft - Current Diet Liquids Current Liquids: Thin Modified Barium Results Hx MBS Results (from prior exam): 05/25/19 10:54 Speech Therapy by Jere Oliver Modified Barium Swallow Study MR#: [id number] Acct: [id number] Name: Jose SAMPSON #: [id number] : 1940 79 From: Arjun Desir M.A., [facility]-NEEDLE PUNCH OPERATOR PRIMARY / SECONDARY DIAGNOSIS: dysphagia (R13.10) REFERRING PHYSICIAN: Dr. Mat Escalante MD CURRENT DIET: regular textures, thin liquids DENTITION: natural MENTAL STATUS: sufficient for participation RESPIRATORY STATUS: O2 via room air REASON FOR REFERRAL: The Patient is an 79 year old female referred for a modified barium swallow (MBS) study to objectively assess the Patients oropharyngeal swallow function under fluoroscopy secondary to reported globus sensation with new onset left lingual paresthesia, with the Patient unable to provide clarity as to the etiology of cause (limited information in EMR) MEDICAL HISTORY: Per Patient report: status post partial thyroidectomy, depression, hyperlipidemia PREVIOUS MODIFIED BARIUM SWALLOW STUDY: None ADDITIONAL OBJECTIVE ASSESSMENT RESULTS: 04/16/2019 MRI revealed no evidence of infarction; unremarkable brain. 04/29/[address] revealed chronic involutional changes of the brain; no acute intracranial process. 04/30/[address] revealed left hemitongue atrophy; right tongue base lobulation, neoplastic disease is not excluded; no lymphadenopathy 06/01/2015 barium swallow study revealed trapping of the 12 mm tablet at the gastroesophageal junction; calcified gallstone. ASSESSMENT PARAMETERS: The Patient participated in a Modified Barium Swallow (MBS) study on 05/24/2019. This study was recorded in the lateral view and images were sent to PACs for storage. Scoring was completed through each trial using the 8-point Penetration-Aspiration Scale (PAS) and summarized via the Videofluoroscopic Dysphagia Scale (VDS) and the Bolus Residue Scale (BRS), with severity scoring through the Dysphagia Severity Rating Scale (DSRS) and the Swallowing Performance Scale (SPS), and recommended diet textures through the International Dysphagia Diet Standardisation Initiative (IDDSI) RESULTS OF THE EVALUATION: The Patient presents with mild oropharyngeal dysphagia (DSRS: 2; SPS: 3) with shallow penetration and inconsistent ejection of thin liquids OBJECTIVE ASSESSMENT OF SWALLOW FUNCTION (QUANTITATIVE ? PER TRIAL): PENETRATION / ASPIRATION SCALE (CHEN): 1 = does not enter airway 2 = enters airway/above vocal folds/ejected 3 = enters airway/above vocal folds/not ejected 4 = enters airway/contacts vocal folds/ejected 5 = enters airway/contacts vocal folds/not ejected 6 = enters airway/below vocal folds/ejected 7 = enters airway/below vocal folds/not ejected despite effort 8 = enters airway/below vocal folds/no effort PENETRATION / ASPIRATION SCALE (SCORE): Thin liquid - 5 mL tsp.: 1 Thin liquids via cup (single sip): 1 Thin liquids via cup (single sip): 3 Thin liquids via cup (single sip): 3 Thin liquids via straw (sequential swallows): 2 Pudding via spoon: 1 Regular textured cookie: 1 Thin liquids via straw (single sip): 2 Thin liquids via straw (single sip): 3 Thin liquids via straw (chin tuck): 3 Thin liquids via straw (chin tuck): 2 Thin liquids via straw (chin tuck): 2 OBJECTIVE ASSESSMENT OF SWALLOW FUNCTION (QUANTITATIVE ? AGGREGATE): VIDEOFLOROSCOPIC DYSPHAGIA SCALE (VDS): LIP CLOSURE: 0 (of 4) Intact BOLUS FORMATION: 3 (of 6) Inadequate MASTICATION: 0 (of 8) Intact APRAXIA: 0 (of 4.5) None TONGUE TO PALATE CONTACT: 0 (of 10) Intact PREMATURE BOLUS LOSS: 1.5 (of 4.5) <10% ORAL TRANSIT TIME: 0 (of 3) < 1.5s TRIGGERING OF PHARYNGEAL SWALLOW: 4.5 (of 4.5) Delayed VALLECULAR RESIDUE: 4 (of 6) 10-50% LARYNGEAL ELEVATION: 9 (of 9) Impaired PYRIFORM SINUS RESIDUE: 4.5 (of 13.5) <10% COATING OF PHARYNGEAL WALL: 0 (of 9) No PHARYNGEAL TRANSIT TIME: 0 (of 6) <1.0s ASPIRATION: 6 (of 12) Supraglottic penetration BOLUS RESIDUE SCALE (BRS): 4 (of 6) residue in valleculae and piriforms OBJECTIVE ASSESSMENT OF SWALLOW FUNCTION (SEVERITY GRADING): DYSPHAGIA SEVERITY RATING SCALE (DSRS): 2 (mild) SWALLOWING PERFORMANCE SCALE (SPS): 3 (mild) OBJECTIVE ASSESSMENT OF SWALLOW FUNCTION (QUALITATIVE): ORAL PREPARATORY PHASE: prolonged mastication with initial anterior munching quality, though able to eventually break down solid textures sufficiently; sufficient anterior oral containment during oral manipulation; preserved management of breathing / bolus formation. ORAL TRANSITIONAL PHASE: no lingual discoordination (no tremor / undulations); fragmented swallowing (piecemeal deglutition) with solid textures (though attributed to left sided bolus residue); impaired oral clearance with left sided bolus consolidation of solid textures; mild premature posterior bolus loss with thin liquids on one occasion, otherwise sufficient containment. PHARYNGEAL PHASE: mild pharyngeal phase dyssynchrony contributing to prandial penetration of thin liquids; mild reduction in hyolaryngeal excursion with inconsistent laryngeal vestibule pressure generated to expel penetrated material; mild pharyngeal dysmotility complicated by incomplete epiglottic deflection (vallecular residue) and pharyngeal phase synchrony (post prandial pyriform residue on one occasion), though otherwise sufficient pharyngeal motility; no signs of velopharyngeal impairments; ESOPHAGEAL PHASE: no obvious esophageal phase abnormalities observed. 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, no impact on pharyngoesophageal motility; noted calcification along the anterior vocal folds and inferior larynx, did not significantly impact image quality; RESPONSE TO STRATEGIES: all deficits managed sufficiently with reduction in bolus rate / volume adjustments, appearing to self-managing post prandial oral residue sufficiently; no demonstrated benefit from execution of the chin tuck posture INTERVENTION RECOMMENDATIONS AND CONSIDERATIONS: The Patient may benefit from continued skilled speech-language intervention targeting diet texture management and training / implementation of recommended compensatory strategies; training and implementation of recommended oropharyngeal strengthening exercises to facilitate improved laryngeal vestibule closure / pressure, though it is important to note that it will be difficult to anticipate the Patients prognosis for improvement with no clear etiology of cause; will follow through the outpatient caseload to further determine the appropriateness for intervention. POST ASSESSMENT EDUCATION: Results and recommendations were discussed with the Patient immediately following MBS completion, with the Patient verbalizing understanding and agreement with all recommendations and education provided. DIET TEXTURE RECOMMENDATIONS: Will recommend a regular ? soft textured (IDDSI: 6), thin liquid diet (IDDSI: 0) diet RECOMMENDED COMPENSATORY STRATEGIES: Check for left sided oral consolidation, consider cutting tougher textures into bite sized pieces, reduced bolus volume / rate of ingestion, seated upright at 90 degrees during PO intake, remain upright for 30-60 minutes post meal (GERD precaution) IMAGE COUNT: [id number] Arjun Desir M.A., CCC-NEEDLE PUNCH OPERATOR, CBIS MBSImP Certified, LSVT Certified [facility] Speech-Language Pathology Department [email or web address] 05/[email or web address]/19 [id number] <Electronically signed by Arjun Desir M.A. CCC-NEEDLE PUNCH OPERATOR> Date Arjun Desir M.A. CCC-NEEDLE PUNCH OPERATOR Initialized on 05/25/19 10:54 - END OF NOTE Dysphagia Assessment - Swallowing Impairment Contributing Factors to Swallowing Impairment: Reduced Oral Strength/Coordination/Sensation, Reduced Laryngeal Excursion - Impact Impact on Safety & Functioning: Risk for Aspiration - Recommendations Modified Barium Swallow/Cookie Swallow Recommended: No Swallowing Treatment: No - Diet Texture Recommendations Solids Other: Soft Liquids: Thin - Safety Saftey Precautions/Swallowing Recommendations (Check all that Apply): Upright Position at Least 30 Minutes After Meals, Small Sips & Bites when Eating Subjective Dysarthria/Motor - Subjective Subjective: Patient reported that her speech has not changed since March 10. She reported that speaking is always effected. Objective Dysarthira/Motor - Speech Intelligibility Single Words: Mild Phrases: Mild Sentences: Mild Conversation: Mild - Volume Volume: WNL - Sounds Sounds in Error: /s/ becomes sh. /z/ is also impacted. Those two sounds are the only sounds impacted. The patient's intelligibility was 100% with no repetition needed. - Observation Observation of Apraxia of Speech: No Oral Groping for Placement: No Inconsistent Errors: No - Awareness/Strategy Use Aware of motor speech impairment, unable to use strategies to improve intelligibility: Yes Plan - Plan Plan: Speech therapy is warranted to continue as the patient continues to have dysarthria which is impacting her ability to communicate with all listeners. - Frequency Frequency: 1x/Week Duration: 2 Months Visits in this POC: 8 - Prognosis Prognosis: Good - Goal #1-5 Goal #1: Patient will produce /s,z/ in words, phrases and sentences with 80% with minimal cues. Goal #2: Patient will produce /s/ blends in words, phrases and sentences with 80% with minimal cues.
--- NOTE | 2019-12-01 13:03 | HP.SP.DC ---
ST Discharge Summary - Discharged: Discharge: Jose Piedra is discharged from speech therapy at [facility] as of 10/13/19 with all goals met. She attended 12 visits with excellent attendance and carry over. Initial evaluation was on 05/25/19 with a hold period while patient was to see a neurologist. Neurologist was on hold due to Covid and patient returned to therapy to address /s,z/ and /s/ blends. She did very well and made progress. Patient then saw a neurologist who placed her on a new medication and speech was much clearer. She was diagnosed with tardive dyskinesia. she had met her goals, she is discharged. A copy of this will be sent to her referring physician.
== END 2019-10-13 19:00 | disposition home or self-care (01) ==
LOC: SP 12:30
PROVIDERS: PCP Family Medicine; Referring Provider Family Medicine; Visit Provider Family Medicine
DX: R47.1 Dysarthria and anarthria (principal)
CPT/HCPCS: 92507; 92522

== ENCOUNTER → 2019-10-28 | Outpatient (CLI) | payer MEDICARE, OTHER, SELFPAY ==
--- NOTE | 2019-10-28 10:00 | BD_ITS ---
STUDY: DUAL ENERGY X-RAY ABSORPTIOMETRY / DXA REASON FOR EXAM: Female, 79 years old. Age of edbbi 46. Pat is 142.8# and 61 and quot; a loss of 3 and quot; per pat. Type II diabetic and takes Lantis. Has a diuretic in her BPM. Hx of Right clavicle fx. Does not exercise. TECHNIQUE: Bone Mineral Density (BMD) measurements of lumbar spine and bilateral hips were obtained. COMPARISON: None. FINDINGS: Lumbar Spine (L1-L4): g/cm2 (1.124) / T-score (-0.5) / Z-score (1.4) Findings are suggestive of normal bone density with a low fracture risk. Left Femur Total: g/cm2 (0.846) / T-score (-1.3) / Z-score (0.8) Left Femoral Neck: g/cm2 (0.706) / T-score (-2.4) / Z-score (-0.2) Right Femur Total: g/cm2 (0.827) / T-score (-1.4) / Z-score (0.6) Right Femoral Neck: g/cm2 (0.760) / T-score (-2.0) / Z-score (0.2) BD/Dexa Bone Density Study IMPRESSION: The patient is considered osteopenic as outlined below according to World Rishi Organization (WHO) criteria with a high fracture risk. Reference Information: The T-score is the number of standard deviations above or below the standard which is normal for young adults at their peak bone mineral density. The World Health Organization (WHO) interprets the T-scores as follows: Above -1 Normal bone density Between -1 and -2.5 Osteopenia Equal to / or below -2.5 Osteoporosis As a practical clinical guideline, osteopenia may be graded as follows: Mild -1 through -1.5 Moderate -1.6 through -2.0 Severe -2.1 through -2.4 The Z-score is the number of standard deviations above or below age-matched controls. A Z-score of less than -1.5 would be considered abnormal. References: 1. NIH Osteoporosis and Related Bone Diseases http://www.osteo.org 2. International Society for Clinical Densitometry http://www.iscd.org 3. National Osteoporosis Foundation http://www.nof.org Electronically Signed: Magdy Santiago, at 15:45 EDT , Service support ,
== END | disposition home or self-care (01) ==
LOC: OPBD 09:53
PROVIDERS: PCP Family Medicine; Visit Provider Family Medicine
DX: Z78.0 Asymptomatic menopausal state (principal); Z13.820 Encounter for screening for osteoporosis
CPT/HCPCS: 77080

== ENCOUNTER → 2019-12-29 | Outpatient (CLI) | payer MEDICARE, OTHER, SELFPAY ==
[2019-12-29 10:17] LABS: Mucous, Urine 0 SEEN /hpf (<or=2+)
[2019-12-29 12:44] LABS: Color, Urine Yellow (Yellow); Glucose, Dipstick Normal (Normal); Ketone-Dipstick Negative (Negative); Leukocyte Esterase-Dipstick 500 /ul (Negative); Nitrite-Dipstick Negative (Negative); Occult Blood-Urine 10 /ul (Negative); Protein-Dipstick 30 mg/dl (Negative); Urine Bilirubin Dipstick Negative (Negative); Urine Clarity Sl. Cloudy (Clear); Urine Urobilinogen Normal (Normal)
[2019-12-29 12:45] LABS: Microalbumin,Random Urine 42.5 mg/L (NO RANGE EST.); Microalbumin:Creatinine Ratio 36.6 mg/g CRE (<30 mg/g CRE)
[2019-12-29 12:46] LABS: ALB/GLOB Ratio 1.2 RATIO (0.9-2.4); AST(SGOT) 17 U/L (15-37); Alanine Aminotransfer ALT/SGPT 32 U/L (13-56); Albumin, Serum 3.9 g/dL (3.2-5.0); Alkaline Phosphatase 74 U/L (45-117); Anion Gap 8 (5-15); BUN 16 mg/dL (7-18); BUN/Creat Ratio 20.5 RATIO (10-20); Calcium,Total 9.2 mg/dL (8.5-10.1); Chloride 101 mmol/L (98-107); Cholesterol 145 mg/dL (200); Creatinine, Serum 0.78 mg/dL (0.55-1.02); EST Glomerular Filtration Rate 75 mL/min (>60); Est Glom Filt Rate - Afr Amer 91 mL/min (>60); Globulin 3.3 g/dL (2.2-4.2); Glucose 128 mg/dL (74-106); High Density Lipoprotein 60 mg/dL; Potassium 3.8 mmol/L (3.5-5.1); Protein, Total 7.2 g/dL (6.4-8.2); Sodium Level 139 mmol/L (136-145); Triglycerides 129 mg/dL; Very Low Density Lipoprotein 26 mg/dL (5-40)
[2019-12-29 12:54] LABS: Absolute Lymphocyte Count 2.39 X10^3/uL (0.83-4.51); Absolute Neutrophil Count 3.3 X10^3/uL (2.0-7.7); Basophil# 0.06 X10^3/uL; Basophil% 0.9 % (0-1); Eosinophil# 0.38 X10^3/uL; Eosinophils% 5.7 % (0-5); Hematocrit 39.1 % (37-47); Hemoglobin 12.7 g/dL (12.0-15.0); Lymphocyte # 2.39 X10^3/ul (4.0); Lymphocyte % 35.9 % (19-41); Mean Corp Hgb Conc 32.5 g/dL (32-36); Mean Corpuscular Hgb 29.2 pg (27.0-32.0); Mean Corpuscular Volume 89.9 fL (81-99); Mean Platelet Vol. 12.5 fl (6.2-12.0); Monocyte% 7.5 % (0-10); NRBC Flagged by Analyzer 0 % (0-5); Neutrophil # 3.31 X10^3/uL (2.7-7.7); Neutrophil % 49.8 % (47-70); Platelet Count 214 K/mm3 (150-450); RBC Distribution Width CV 12.7 % (11.6-14.6); RBC Distribution Width SD 42.1 fl (35.1-43.9); Red Blood Count 4.35 M/mm3 (4.2-5.4); White Blood Count 6.7 K/mm3 (4.4-11.0)
[2019-12-29 12:55] LABS: Bacteria 1+ /hpf (None Seen); Red Blood Cells-Urine 0-5 SEEN /hpf (0-5); Squamous Epithelial Cells - UA 0-5 SEEN /hpf (5-10); White Blood Cells 25-50 SEEN /hpf (0-5)
[2019-12-29 13:32] LABS: Hemoglobin A1c 6.8 % (3.8-5.6)
== END | disposition home or self-care (01) ==
LOC: MTLAB 09:36
PROVIDERS: PCP Family Medicine; Referring Provider Family Medicine; Visit Provider Family Medicine
DX: E11.9 Type 2 diabetes mellitus without complications (principal); E78.5 Hyperlipidemia, unspecified; E55.9 Vitamin D deficiency, unspecified; I10 Essential (primary) hypertension
CPT/HCPCS: 36415; 80053; 80061; 81001; 82043; 82306; 82570; 83036; 85025

== ENCOUNTER → 2020-04-18 10:12 | Outpatient (CLI) | payer MEDICARE, OTHER, SELFPAY ==
--- NOTE | 2020-04-18 10:20 | US_ITS ---
STUDY: THYROID ULTRASOUND REASON FOR EXAM: Female, 80 years old. Goiter . Status post left thyroid resection. TECHNIQUE: Ultrasound evaluation of the thyroid was performed with real-time and static montgomery-scale imaging. COMPARISON: Comparison is made with prior examination of 05/13/2019. FINDINGS: RIGHT LOBE: The right lobe of the thyroid gland measures 4.7 cm x 2.1 cm x 1.9 cm. There is a heterogeneous echotexture. Multiple small cystic and solid nodules are seen within the right lobe. The largest measures 1.1 cm x 0.9 cm x 0.7 cm. These are essentially unchanged. LEFT LOBE: Prior resection. ISTHMUS: The isthmus measures 2 mm. The regional lymph nodes are normal. US/Thyroid IMPRESSION: Status post resection of the left lobe of the thyroid gland. Heterogeneous appearance of the right lobe with multiple small nodules. The largest measures 1.1 cm x 0.9 cm x 0.7 cm. Electronically Signed: Magdy Santiago MD at 13:57 EST , Service support ,
== END ==
PROVIDERS: PCP Family Medicine; Referring Provider Otolaryngology; Visit Provider Otolaryngology
DX: E04.9 Nontoxic goiter, unspecified (principal)
CPT/HCPCS: 76536

== ENCOUNTER → 2020-05-10 09:51 | Outpatient (CLI) | payer MEDICARE, OTHER, SELFPAY ==
[2020-05-10 12:51] LABS: ALB/GLOB Ratio 1.3 RATIO (0.9-2.4); AST(SGOT) 23 U/L (15-37); Alanine Aminotransfer ALT/SGPT 32 U/L (13-56); Albumin, Serum 4.2 g/dL (3.2-5.0); Alkaline Phosphatase 76 U/L (45-117); Anion Gap 7 (5-15); BUN 16 mg/dL (7-18); BUN/Creat Ratio 18.3 RATIO (10-20); Calcium,Total 9.6 mg/dL (8.5-10.1); Chloride 100 mmol/L (98-107); Cholesterol 130 mg/dL (200); Creatinine, Serum 0.87 mg/dL (0.55-1.02); EST Glomerular Filtration Rate 66 mL/min (>60); Est Glom Filt Rate - Afr Amer 80 mL/min (>60); Globulin 3.2 g/dL (2.2-4.2); Glucose 185 mg/dL (74-106); High Density Lipoprotein 64 mg/dL; Potassium 3.8 mmol/L (3.5-5.1); Protein, Total 7.4 g/dL (6.4-8.2); Sodium Level 137 mmol/L (136-145); Triglycerides 106 mg/dL; Very Low Density Lipoprotein 21 mg/dL (5-40)
[2020-05-10 13:04] LABS: Hemoglobin A1c 6.2 % (3.8-5.6)
== END ==
PROVIDERS: PCP Family Medicine; Referring Provider Family Medicine; Visit Provider Family Medicine
DX: E11.9 Type 2 diabetes mellitus without complications (principal); E55.9 Vitamin D deficiency, unspecified; E78.5 Hyperlipidemia, unspecified
CPT/HCPCS: 36415; 80053; 80061; 82306; 83036

== ENCOUNTER 2020-08-24 11:30 | Outpatient (RCR) | payer MEDICARE, OTHER, SELFPAY ==
--- NOTE | 2020-07-27 11:17 | HP.PTEVAL ---
Patient's Visit Information Jose SAMPSON is a 80 year old F referred to Physical Therapy by Dr. Lionel Nash MD with a diagnosis of BPPV. Date of Evaluation: 07/27/20 Physical Therapist: Esteban Grayson, DONALDT, OCS, CSCS - Visit Plan Frequency: 1x/Week Duration: 2-4 Weeks Plan: 1x/week x 2-4 as needed for positional checks and treatments. Progression of function. - Subjective I am dizzy. Has been dizzy for about a year ago. Room spins at t imes when she looks up or lie down in bed. This happens for seconds a couple times a day. In between those sessions she feels pretty normal. Has fallen 3x but that was a long time ago. [place] like balance was off at that time but not anymore. Sleep is OK. Basic ADLS and self care are normal. Not employed. Enjoys scrapbooking adn walking and can do those things. - Objective Walks normal with good balance, moves neck well without pain. FGA is above laura for age. - L halpike flory. + R hallpike flory for up torsional nystagmus of 8 seconds. Treated with R kita and then - HD. - Balance Scores Functional Gait Assessment Score: 24 % Disability: 20.0000 - Goals Goal 1:: <10 DHI score Goal Time Frame: 2-4 Weeks Goal 4:: Abolish dizzyness at night Goal Time Frame: 2-4 Weeks Goal 5:: Pt feel 50% more steady on feet Goal Time Frame: 2-4 Weeks - Rehabilitation Potential Physical Therapy Diagnosis: BPPV and dizzyness in bed. Rehabilitation Potential: Good - Anticipated Interventions Patient/Client Instruction: Educate patient on: Condition For the Purpose of:: To improve gait and locomotor functions Comment: positional and vestibular ex/techniques Other: to diminish dizzyness Thank you for the opportunity to evaluate your patient. For Medicare and Medicare HMO plans, please review the plan of care and approve it. It will need to be FAXED BACK to us at [phone] for Medicare purposes. For Medicare only, by signing this I certify the plan of care. Please let me know if there are questions or concerns regarding this plan of care. Physician Signature: Date:
--- NOTE | 2020-08-24 11:50 | HP.PTDCSUM ---
It has been my pleasure to treat Jose SAMPSON referred by Dr. Lionel Nash MD, with the diagnosis of BPPV for a total of 4 visit(s). Discharge Date: 08/24/20 Please see the following information for a summary of their discharge status. Subjective: Has been good. A couple bad days the first week but nothing since. No problems with dizzyness since then. Balance is good, no falls. Activities are pretty normal this last week. Had a big green party for grandson and had no problems other than the heat.Back to doc in mid September. % Improvement: 90 Objective/Function: - B hallpike flory adn roll. - VOR x 30 seconds today. Walking well with good balance even with slow VOR. Overall much better adn doing well, hopped right up out of waiting room chair and walking speedily. Goal 1:: <10 DHI score Goal Progress: 14/100, 750 Goal 4:: Abolish dizzyness at night Goal Progress: Goal Met Goal 5:: Pt feel 50% more steady on feet Goal Progress: Goal Met Plan: d/c Discharge Comments: Pt to f/u with doctor if dizzyness returns, otherwise doing well. If there are questions or concerns regarding this patient's physical therapy, please feel free to call me at [phone]. Thank you for the referral of this patient. Sincerely, Esteban Grayson, DPT, OCS, CSCS
== END 2020-08-24 12:27 | disposition home or self-care (01) ==
LOC: PT 11:30
PROVIDERS: PCP Family Medicine; Referring Provider Psychiatry & Neurology Neurology; Visit Provider Psychiatry & Neurology Neurology
DX: H81.10 Benign paroxysmal vertigo, unspecified ear (principal)
CPT/HCPCS: 97161; 97164; 97530

== ENCOUNTER → 2020-09-13 10:24 | Outpatient (CLI) | payer MEDICARE, OTHER, SELFPAY ==
[2020-09-13 10:31] LABS: Mucous, Urine 0 SEEN /hpf (<or=2+); Red Blood Cells-Urine 0 SEEN /hpf (0-5)
[2020-09-13 12:28] LABS: Absolute Lymphocyte Count 1.68 X10^3/uL (0.83-4.51); Absolute Neutrophil Count 3.4 X10^3/uL (2.0-7.7); Basophil# 0.06 X10^3/uL; Eosinophil# 0.26 X10^3/uL; Eosinophils% 4.5 % (0-5); Hematocrit 40.3 % (37-47); Lymphocyte # 1.68 X10^3/ul (0.83-4.51); Lymphocyte % 29.2 % (19-41); Mean Corp Hgb Conc 32.3 g/dL (32-36); Mean Corpuscular Hgb 28.4 pg (27.0-32.0); Mean Platelet Vol. 12.4 fl (6.2-12.0); Monocyte# 0.34 X10^3/uL; Monocyte% 5.9 % (0-10); NRBC Flagged by Analyzer 0 % (0-5); Neutrophil % 59.1 % (47-70); Platelet Count 220 K/mm3 (150-450); RBC Distribution Width CV 13.3 % (11.6-14.6); Red Blood Count 4.58 M/mm3 (4.2-5.4); White Blood Count 5.8 K/mm3 (4.4-11.0)
[2020-09-13 12:40] LABS: Vitamin D,25 Hydroxy 29.8 ng/mL
[2020-09-13 12:52] LABS: Microalbumin,Random Urine 21.8 mg/L (NO RANGE EST.); Microalbumin:Creatinine Ratio 15.7 mg/g CRE (<30 mg/g CRE)
[2020-09-13 12:54] LABS: ALB/GLOB Ratio 1.1 RATIO (0.9-2.4); AST(SGOT) 17 U/L (15-37); Alanine Aminotransfer ALT/SGPT 26 U/L (13-56); Albumin, Serum 3.7 g/dL (3.2-5.0); Alkaline Phosphatase 77 U/L (45-117); Anion Gap 6 (5-15); BUN 10 mg/dL (7-18); BUN/Creat Ratio 11.5 RATIO (10-20); Calcium,Total 9.2 mg/dL (8.5-10.1); Chloride 103 mmol/L (98-107); Cholesterol 135 mg/dL (200); Color, Urine Yellow (Yellow); Creatinine, Serum 0.87 mg/dL (0.55-1.02); EST Glomerular Filtration Rate 67 mL/min (>60); Est Glom Filt Rate - Afr Amer 81 mL/min (>60); Globulin 3.5 g/dL (2.2-4.2); Glucose 235 mg/dL (74-106); Glucose, Dipstick 250 mg/dl (Normal); High Density Lipoprotein 68 mg/dL; Ketone-Dipstick Negative (Negative); Leukocyte Esterase-Dipstick 500 /ul (Negative); Nitrite-Dipstick Negative (Negative); Occult Blood-Urine Negative /ul (Negative); Potassium 3.6 mmol/L (3.5-5.1); Protein, Total 7.2 g/dL (6.4-8.2); Protein-Dipstick 30 mg/dl (Negative); Sodium Level 137 mmol/L (136-145); Specific Gravity, Urine 1.015 (1.002-1.030); Triglycerides 121 mg/dL; Urine Bilirubin Dipstick Negative (Negative); Urine Clarity Sl. Cloudy (Clear); Urine Urobilinogen 1 mg/dl (Normal); Very Low Density Lipoprotein 24 mg/dL (5-40)
[2020-09-13 13:01] LABS: Bacteria 1+ /hpf (None Seen); Squamous Epithelial Cells - UA 0-5 SEEN /hpf (5-10); White Blood Cells 25-50 SEEN /hpf (0-5)
[2020-09-13 13:03] LABS: Hemoglobin A1c 6.5 % (3.8-5.6)
== END ==
PROVIDERS: PCP Family Medicine; Referring Provider Family Medicine; Visit Provider Family Medicine
DX: E11.9 Type 2 diabetes mellitus without complications (principal); I10 Essential (primary) hypertension; E78.5 Hyperlipidemia, unspecified; E55.9 Vitamin D deficiency, unspecified
CPT/HCPCS: 36415; 80053; 80061; 81001; 82043; 82306; 82570; 83036; 85025

== ENCOUNTER → 2020-09-15 12:32 | Outpatient (CLI) | payer MEDICARE, OTHER, SELFPAY ==
--- NOTE | 2020-09-15 12:45 | US_ITS ---
STUDY: THYROID ULTRASOUND REASON FOR EXAM: Female, 80 years old. Thyroid nodules. TECHNIQUE: Ultrasound evaluation of the thyroid was performed with real-time and static montgomery-scale imaging. COMPARISON: Comparison is made with prior examination dated 04/18/2020 and 05/13/2019. FINDINGS: RIGHT LOBE: The right lobe of the thyroid gland is enlarged and measures 5.3 cm x 2 cm x 1.7 cm. There is a heterogeneous echotexture. There are 3 solid and cystic nodule seen in the right lobe in the mid and lower poles. There is a 9 mm x 9 mm x 7 mm solid/cystic nodule which is calcified. LEFT LOBE: Status post subtotal resection of the left lobe of the thyroid. Stable 1.3 cm x 0.6 cm x 0.5 cm cyst. ISTHMUS: The isthmus measures 6 mm. There is a 5 mm x 4 mm x 2 mm cyst within the isthmus. The regional lymph nodes are normal. US/Thyroid IMPRESSION: Stable solid and cystic changes in the right lobe with a small residual cyst in the left lobe. Electronically Signed: Magdy Santiago MD at 15:06 EDT , Service support ,
== END ==
PROVIDERS: PCP Family Medicine; Referring Provider Family Medicine; Visit Provider Family Medicine
DX: E04.1 Nontoxic single thyroid nodule (principal)
CPT/HCPCS: 76536

== ENCOUNTER → 2021-03-07 14:57 | Outpatient (CLI) | payer MEDICARE, OTHER, SELFPAY ==
--- NOTE | 2021-03-07 15:02 | US_ITS ---
STUDY: THYROID ULTRASOUND REASON FOR EXAM: Female, 81 years old. GOITER TECHNIQUE: Ultrasound evaluation of the thyroid was performed with real-time and static montgomery-scale imaging. COMPARISON: 09.15.20. FINDINGS: RIGHT LOBE: The right lobe of the thyroid gland measures 4.4 x 1.8 cm. There is a heterogeneous echotexture. There are nodules. 2 largest were measured. These measure 7 x 12 x 6 mm and 10 x 9 x 8 mm. The lesion is solid / cystic with regular margins and alvarado nodular doppler flow. LEFT LOBE: The left lobe of the thyroid gland is per history surgically absent. Residual tissue visualized measuring 11 x 6 x 5 mm.. The residual tissue contains a cystic lesion measuring 6 x 6 x 5 mm. ISTHMUS: The isthmus measures 4 mm. The regional lymph nodes are normal. US/Thyroid IMPRESSION: There are RIGHT nodules. This nodule is mixed cystic and solid, hyperechoic or isoechoic, [id number], smoothly marginated and contains no echogenic foci. TI-RADS points: 2. TI-RADS category: TR2. This nodule is not suspicious and no FNA or follow-up is necessary. There are left nodules. This nodule is mixed cystic and solid, hyperechoic or isoechoic, [id number], smoothly marginated and contains no echogenic foci. TI-RADS points: 2. TI-RADS category: TR2. This nodule is not suspicious and no FNA or follow-up is necessary. Electronically Signed: Zaire Gutierres MD at 20:09 EST , Service support ,
== END ==
PROVIDERS: PCP Family Medicine; Referring Provider Otolaryngology; Visit Provider Otolaryngology
DX: E04.2 Nontoxic multinodular goiter (principal)
CPT/HCPCS: 76536

== ENCOUNTER 2021-03-21 14:46 | Outpatient (CLI) | payer MEDICARE, OTHER, SELFPAY ==
[2021-03-21 14:56] LABS: Bacteria 0 SEEN /hpf (None Seen); Mucous, Urine 0 SEEN /hpf (<or=2+); Red Blood Cells-Urine 0 SEEN /hpf (0-5); Squamous Epithelial Cells - UA 0 SEEN /hpf (5-10)
[2021-03-21 18:12] LABS: Color, Urine Yellow (Yellow); Glucose, Dipstick 1000 mg/dl (Normal); Ketone-Dipstick Negative (Negative); Leukocyte Esterase-Dipstick 100 /ul (Negative); Nitrite-Dipstick Negative (Negative); Occult Blood-Urine Negative /ul (Negative); Protein-Dipstick Negative (Negative); Specific Gravity, Urine 1.015 (1.002-1.030); Urine Bilirubin Dipstick Negative (Negative); Urine Clarity Clear (Clear); Urine Urobilinogen Normal (Normal)
[2021-03-21 18:19] LABS: Absolute Lymphocyte Count 1.84 X10^3/uL (0.83-4.51); Absolute Neutrophil Count 4.5 X10^3/uL (2.0-7.7); Basophil# 0.06 X10^3/uL; Basophil% 0.9 % (0-1); Eosinophil# 0.21 X10^3/uL; Hemoglobin 12.9 g/dL (12.0-15.0); Lymphocyte # 1.84 X10^3/ul (0.83-4.51); Lymphocyte % 26.1 % (19-41); Mean Corp Hgb Conc 32.3 g/dL (32-36); Mean Corpuscular Hgb 28.1 pg (27.0-32.0); Mean Corpuscular Volume 87.1 fL (81-99); Mean Platelet Vol. 12.9 fl (6.2-12.0); Monocyte# 0.48 X10^3/uL; Monocyte% 6.8 % (0-10); NRBC Flagged by Analyzer 0 % (0-5); Neutrophil # 4.45 X10^3/uL (2.7-7.7); Neutrophil % 63.1 % (47-70); Platelet Count 221 K/mm3 (150-450); RBC Distribution Width CV 13.6 % (11.6-14.6); RBC Distribution Width SD 43.1 fl (35.1-43.9); Red Blood Count 4.59 M/mm3 (4.2-5.4); White Blood Count 7.1 K/mm3 (4.4-11.0)
[2021-03-21 18:22] LABS: Vitamin D,25 Hydroxy 26.3 ng/mL
[2021-03-21 18:28] LABS: Hemoglobin A1c 6.4 % (3.8-5.6)
[2021-03-21 18:29] LABS: White Blood Cells 0-5 SEEN /hpf (0-5)
[2021-03-21 18:31] LABS: Erythrocyte Sedimentation Rate 4 mm/hr (0-30)
[2021-03-21 18:32] LABS: ALB/GLOB Ratio 1.4 RATIO (0.9-2.4); AST(SGOT) 17 U/L (15-37); Alanine Aminotransfer ALT/SGPT 31 U/L (13-56); Albumin, Serum 4.1 g/dL (3.2-5.0); Alkaline Phosphatase 80 U/L (45-117); Anion Gap 8 (5-15); BUN 12 mg/dL (7-18); BUN/Creat Ratio 14.3 RATIO (10-20); Calcium,Total 9.2 mg/dL (8.5-10.1); Chloride 101 mmol/L (98-107); Cholesterol 126 mg/dL (200); Creatinine, Serum 0.84 mg/dL (0.55-1.02); EST Glomerular Filtration Rate 69 mL/min (>60); Est Glom Filt Rate - Afr Amer 84 mL/min (>60); Glucose 253 mg/dL (74-106); High Density Lipoprotein 60 mg/dL; Potassium 3.9 mmol/L (3.5-5.1); Protein, Total 7.1 g/dL (6.4-8.2); Sodium Level 136 mmol/L (136-145); Thyroid Stim Hormone (TSH) 2.99 uIU/mL (0.358-3.74); Triglycerides 127 mg/dL; Very Low Density Lipoprotein 25 mg/dL (5-40)
[2021-03-21 18:47] LABS: Microalbumin,Random Urine 12.2 mg/L (NO RANGE EST.); Microalbumin:Creatinine Ratio 19.4 mg/g CRE (<30 mg/g CRE)
== END 2021-03-21 23:59 | disposition short-term general hospital (02) ==
LOC: MFPLAB 14:52
PROVIDERS: PCP Family Medicine; Referring Provider Family Medicine; Visit Provider Family Medicine
DX: E11.59 Type 2 diabetes mellitus with other circulatory complications (principal); E11.69 Type 2 diabetes mellitus with other specified complication; E55.9 Vitamin D deficiency, unspecified
CPT/HCPCS: 36415; 80053; 80061; 81001; 82043; 82306; 82570; 83036; 84443; 85025; 85652

== ENCOUNTER → 2021-07-05 | Outpatient (CLI) | payer MEDICARE, OTHER, SELFPAY ==
[2021-07-05 15:49] LABS: Absolute Lymphocyte Count 2.23 X10^3/uL (0.83-4.51); Absolute Neutrophil Count 4.4 X10^3/uL (2.0-7.7); Basophil# 0.09 X10^3/uL; Basophil% 1.2 % (0-1); Eosinophils% 2.7 % (0-5); Hematocrit 37.7 % (37-47); Hemoglobin 12.4 g/dL (12.0-15.0); Lymphocyte # 2.23 X10^3/ul (0.83-4.51); Lymphocyte % 29.7 % (19-41); Mean Corp Hgb Conc 32.9 g/dL (32-36); Mean Corpuscular Hgb 28.1 pg (27.0-32.0); Mean Corpuscular Volume 85.5 fL (81-99); Mean Platelet Vol. 12.4 fl (6.2-12.0); Monocyte# 0.53 X10^3/uL; Monocyte% 7.1 % (0-10); NRBC Flagged by Analyzer 0 % (0-5); Neutrophil # 4.44 X10^3/uL (2.7-7.7); Platelet Count 251 K/mm3 (150-450); RBC Distribution Width CV 13.7 % (11.6-14.6); RBC Distribution Width SD 43.1 fl (35.1-43.9); Red Blood Count 4.41 M/mm3 (4.2-5.4); White Blood Count 7.5 K/mm3 (4.4-11.0)
[2021-07-05 16:12] LABS: Microalbumin,Random Urine 18.8 mg/L (NO RANGE EST.); Microalbumin:Creatinine Ratio 17.9 mg/g CRE (<30 mg/g CRE)
[2021-07-05 16:21] LABS: ALB/GLOB Ratio 1.2 RATIO (0.9-2.4); AST(SGOT) 21 U/L (15-37); Alanine Aminotransfer ALT/SGPT 32 U/L (13-56); Albumin, Serum 3.7 g/dL (3.2-5.0); Alkaline Phosphatase 68 U/L (45-117); Anion Gap 5 (5-15); BUN 12 mg/dL (7-18); BUN/Creat Ratio 16.9 RATIO (10-20); Calcium,Total 9.2 mg/dL (8.5-10.1); Chloride 103 mmol/L (98-107); Cholesterol 137 mg/dL (200); Creatinine, Serum 0.71 mg/dL (0.55-1.02); EST Glomerular Filtration Rate 84 mL/min (>60); Est Glom Filt Rate - Afr Amer 102 mL/min (>60); Globulin 3.1 g/dL (2.2-4.2); Glucose 184 mg/dL (74-106); High Density Lipoprotein 61 mg/dL; Protein, Total 6.8 g/dL (6.4-8.2); Sodium Level 137 mmol/L (136-145); Thyroid Stim Hormone (TSH) 2.79 uIU/mL (0.358-3.74); Triglycerides 169 mg/dL; Very Low Density Lipoprotein 34 mg/dL (5-40)
[2021-07-05 16:29] LABS: Hemoglobin A1c 6.5 % (3.8-5.6)
== END | disposition home or self-care (01) ==
LOC: MTLAB 13:47
PROVIDERS: PCP Family Medicine; Referring Provider Family Medicine; Visit Provider Family Medicine
DX: E11.69 Type 2 diabetes mellitus with other specified complication (principal); E55.9 Vitamin D deficiency, unspecified
CPT/HCPCS: 36415; 80053; 80061; 82043; 82306; 82570; 83036; 84443; 85025

== ENCOUNTER → 2021-11-06 | Outpatient (CLI) | payer MEDICARE, OTHER, SELFPAY ==
[2021-11-06 15:29] LABS: Absolute Lymphocyte Count 2.25 X10^3/uL (0.83-4.51); Absolute Neutrophil Count 5.1 X10^3/uL (2.0-7.7); Basophil# 0.06 X10^3/uL; Basophil% 0.7 % (0-1); Eosinophil# 0.34 X10^3/uL; Hematocrit 36.6 % (37-47); Hemoglobin 12.2 g/dL (12.0-15.0); Lymphocyte # 2.25 X10^3/ul (0.83-4.51); Lymphocyte % 26.7 % (19-41); Mean Corp Hgb Conc 33.3 g/dL (32-36); Mean Corpuscular Hgb 28.6 pg (27.0-32.0); Mean Corpuscular Volume 85.7 fL (81-99); Monocyte# 0.66 X10^3/uL; Monocyte% 7.8 % (0-10); NRBC Flagged by Analyzer 0 % (0-5); Neutrophil % 60.6 % (47-70); Platelet Count 221 K/mm3 (150-450); RBC Distribution Width SD 43.3 fl (35.1-43.9); Red Blood Count 4.27 M/mm3 (4.2-5.4); White Blood Count 8.4 K/mm3 (4.4-11.0)
[2021-11-06 15:56] LABS: Vitamin D,25 Hydroxy 47.4 ng/mL
[2021-11-06 16:04] LABS: ALB/GLOB Ratio 1.4 RATIO (0.9-2.4); AST(SGOT) 17 U/L (15-37); Alanine Aminotransfer ALT/SGPT 29 U/L (13-56); Albumin, Serum 4.1 g/dL (3.2-5.0); Alkaline Phosphatase 64 U/L (45-117); Anion Gap 7 (5-15); BUN 10 mg/dL (7-18); BUN/Creat Ratio 13.2 RATIO (10-20); Calcium,Total 9.1 mg/dL (8.5-10.1); Chloride 103 mmol/L (98-107); Cholesterol 112 mg/dL (200); Creatinine, Serum 0.76 mg/dL (0.55-1.02); EST Glomerular Filtration Rate 77 mL/min (>60); Est Glom Filt Rate - Afr Amer 94 mL/min (>60); Globulin 2.9 g/dL (2.2-4.2); Glucose 126 mg/dL (74-106); High Density Lipoprotein 67 mg/dL; Potassium 3.9 mmol/L (3.5-5.1); Sodium Level 138 mmol/L (136-145); Triglycerides 164 mg/dL; Very Low Density Lipoprotein 33 mg/dL (5-40)
[2021-11-06 16:07] LABS: Hemoglobin A1c 6.4 % (3.8-5.6)
== END | disposition home or self-care (01) ==
PROVIDERS: PCP Family Medicine; Referring Provider Family Medicine; Visit Provider Family Medicine
DX: E11.69 Type 2 diabetes mellitus with other specified complication (principal); E55.9 Vitamin D deficiency, unspecified
CPT/HCPCS: 36415; 80053; 80061; 82306; 83036; 85025

== ENCOUNTER → 2022-01-24 | Outpatient (CLI) | payer MEDICARE, OTHER, SELFPAY ==
[2022-01-24 15:17] LABS: Vitamin B12 391 pg/mL (211-911)
[2022-01-24 15:38] LABS: Thyroid Stim Hormone (TSH) 2.36 uIU/mL (0.358-3.74)
== END | disposition home or self-care (01) ==
LOC: MTLAB 11:58
PROVIDERS: PCP Family Medicine; Referring Provider Family Medicine; Visit Provider Family Medicine
DX: R41.3 Other amnesia (principal)
CPT/HCPCS: 36415; 82607; 84443

== ENCOUNTER → 2022-02-19 | Outpatient (CLI) | payer MEDICARE, OTHER, SELFPAY ==
[2022-02-19 17:59] LABS: Absolute Lymphocyte Count 1.69 X10^3/uL (0.83-4.51); Absolute Neutrophil Count 6.1 X10^3/uL (2.0-7.7); Basophil# 0.06 X10^3/uL; Basophil% 0.7 % (0-1); Eosinophil# 0.13 X10^3/uL; Eosinophils% 1.5 % (0-5); Hematocrit 38.3 % (37-47); Hemoglobin 12.6 g/dL (12.0-15.0); Lymphocyte # 1.69 X10^3/ul (0.83-4.51); Mean Corp Hgb Conc 32.9 g/dL (32-36); Mean Corpuscular Volume 85.1 fL (81-99); Mean Platelet Vol. 12.8 fl (6.2-12.0); Monocyte# 0.48 X10^3/uL; Monocyte% 5.7 % (0-10); NRBC Flagged by Analyzer 0 % (0-5); Neutrophil # 6.06 X10^3/uL (2.7-7.7); Neutrophil % 71.7 % (47-70); Platelet Count 228 K/mm3 (150-450); RBC Distribution Width CV 13.7 % (11.6-14.6); RBC Distribution Width SD 42.7 fl (35.1-43.9); White Blood Count 8.5 K/mm3 (4.4-11.0)
[2022-02-19 18:17] LABS: ALB/GLOB Ratio 1.3 RATIO (0.9-2.4); AST(SGOT) 15 U/L (15-37); Alanine Aminotransfer ALT/SGPT 33 U/L (13-56); Albumin, Serum 3.7 g/dL (3.2-5.0); Alkaline Phosphatase 69 U/L (45-117); Anion Gap 9 (5-15); BUN 15 mg/dL (7-18); BUN/Creat Ratio 20.1 RATIO (10-20); Calcium,Total 9.3 mg/dL (8.5-10.1); Chloride 101 mmol/L (98-107); Cholesterol 122 mg/dL (200); Creatinine, Serum 0.75 mg/dL (0.55-1.02); EST Glomerular Filtration Rate 79 mL/min (>60); Est Glom Filt Rate - Afr Amer 96 mL/min (>60); Globulin 2.8 g/dL (2.2-4.2); Glucose 244 mg/dL (74-106); High Density Lipoprotein 63 mg/dL; Potassium 3.9 mmol/L (3.5-5.1); Protein, Total 6.5 g/dL (6.4-8.2); Sodium Level 136 mmol/L (136-145); Triglycerides 123 mg/dL; Very Low Density Lipoprotein 25 mg/dL (5-40)
[2022-02-19 18:19] LABS: Vitamin D,25 Hydroxy 27.5 ng/mL
[2022-02-19 18:20] LABS: Hemoglobin A1c 7.1 % (3.8-5.6)
[2022-02-19 18:37] LABS: Microalbumin:Creatinine Ratio 23.6 mg/g CRE (<30 mg/g CRE)
== END | disposition home or self-care (01) ==
LOC: MTLAB 14:59
PROVIDERS: PCP Family Medicine; Referring Provider Family Medicine; Visit Provider Family Medicine
DX: E11.9 Type 2 diabetes mellitus without complications (principal); M85.80 Other specified disorders of bone density and structure, unspecified site
CPT/HCPCS: 36415; 80053; 80061; 82043; 82306; 82570; 83036; 85025

== ENCOUNTER 2022-02-20 12:02 | Emergency (ER) | payer MEDICARE, OTHER, SELFPAY ==
[2022-02-20 12:02] VITALS: BP 168/92; PULSE 82; RESP 16; TEMP 36.6; O2SAT 99; BMI 25.6
[2022-02-20 13:02] VITALS: RESP 16
--- NOTE | 2022-02-20 13:10 | EX.ED.VIS.PS ---
HPI HPI - Psych History of Present Illness Chief Complaint: Mental Health Narrative Narrative: 81-year-old female presents with her because of suicidal ideation and depression. She states that she had depression back in the 1970s where she had a plan to commit suicide by taking pills, but she states she refrain from doing this because her daughter had come home from school and told her that she loved her. She had not had problems with depression again until this fall, back in November a few months ago, she was on a trip with her and she mated to Gamaliel as they were exploring [place], but then states I could not cope. She had to fly back home. 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 She was at the nurse practitioner's office today and she told her that she was depressed. She also filled out a survey and checked the box that stated that she was having suicidal thoughts. Patient was also told that she is losing her vision and feels frustrated that she is becoming older. PFSH PFSH Allergy/AdvReac Type Severity Reaction Status Date / Time codeine Allergy Rash Verified 02/20/22 12:07 morphine Allergy Rash Verified 02/20/22 12:07 Social History Smoking Status: Never smoker ROS ROS ED ROS Narrative Constitutional: No fever, no chills. HEENT: No sore throat. No neck pain. No loss of vision. No rhinorrhea. Cardiovascular: No chest pain. No palpitations. No pedal edema. Respiratory: No cough, no shortness of breath. Abdominal: No abdominal pain. No nausea. No vomiting. Genitourinary: No dysuria. No hematuria. Musculoskeletal: No myalgias. No arthralgias. Neurologic: No headaches. No dizziness. No lightheadedness. Skin: No rash. No change in color. Psychiatric: Positive depression. No anxiety. Admits to occasional suicidal thoughts. EXAM Physical Exam Narrative Exam Narrative: Afebrile. Vital signs noted. HEENT: Normocephalic. Atraumatic. PERRL, EOMI. Neck soft and supple. No point tenderness or step off. Cardiovascular: Regular rate and rhythm. No murmurs, rubs, or gallops appreciated. Respiratory: No tachypnea. Lungs clear to auscultation bilaterally. Gastrointestinal: Abdomen soft, nontender, with normoactive bowel sounds. No rebound or guarding. Neurological: Awake. Alert. Nonfocal, nonlateralizing. Skin: No rash. Normal color. No pallor. Musculoskeletal: No pedal edema. Full range of motion extremities. Psychiatric: Pleasant, mildly flat to depressed affect. Denies suicidal ideation with plan. Does admit to occasional suicidal thoughts. Const Vital Signs: 02/20/22 12:02 02/20/22 13:02 Temperature 98 F Temperature Source Temporal Pulse Rate 82 Respiratory Rate 16 16 Blood Pressure 168/92 H Blood Pressure Mean 117 Pulse Ox 99 Oxygen Delivery Method Room Air MDM MDM MDM Narrative Medical decision making narrative: Medical clearance labs were obtained. CBC is grossly normal. Ethyl alcohol is grossly normal. Electrolyte panel shows glucose elevated at 167 with a normal anion gap of 7. Although she did not produce a urine sample, I do feel that she is medically cleared for psychiatric evaluation. In discussion with case management, patient is able to contract for safety without ambivalence. She does not have a distinct plan. She thought maybe that she would take pills, however her is in charge of all medications. They are both comfortable with discharge, and her states that he can watch her. She will follow-up with the counseling center tomorrow. She was given the number to crisis to call as needed. At this point in time, as she is able to contract for safety and her is comfortable taking her home, I feel she be discharged safely home with follow-up. Return instructions to the emergency department were reviewed. Disposition is discharged home in stable condition. Lab Data Attestation: I reviewed the patient's lab results. Labs: Laboratory Results - last 24 hr 02/20/22 02/20/22 02/20/22 12:10 13:25 13:25 WBC 8.4 RBC 4.35 Hgb 12.1 Hct 36.9 L MCV 84.8 MCH 27.8 MCHC 32.8 RDW Std Deviation 42.5 RDW Coeff of Dario 13.6 Plt Count 209 MPV 12.2 H Immature Gran % (Auto) 0.200 Neut % (Auto) 68.6 Lymph % (Auto) 23.5 Reagan % (Auto) 5.6 Eos % (Auto) 1.5 Baso % (Auto) 0.6 Absolute Neuts (auto) 5.8 Absolute Lymphs (auto) 1.98 Nucleated RBC % 0 Sodium Potassium Chloride Carbon Dioxide Anion Gap BUN Creatinine Estim Creat Clear Calc Est GFR (MDRD) Af Amer Est GFR (MDRD) Non-Af BUN/Creatinine Ratio Glucose Calcium Total Bilirubin AST ALT Alkaline Phosphatase Total Protein Albumin Globulin Albumin/Globulin Ratio Ur Drug Screen Comment Ethyl Alcohol < 3.0 02/20/22 13:25 WBC RBC Hgb Hct MCV MCH MCHC RDW Std Deviation RDW Coeff of Dario Plt Count MPV Immature Gran % (Auto) Neut % (Auto) Lymph % (Auto) Reagan % (Auto) Eos % (Auto) Baso % (Auto) Absolute Neuts (auto) Absolute Lymphs (auto) Nucleated RBC % Sodium 135 L Potassium 3.5 Chloride 100 Carbon Dioxide 28.0 Anion Gap 7 BUN 15 Creatinine 0.74 Estim Creat Clear Calc 34.30 Est GFR (MDRD) Af Amer 96 Est GFR (MDRD) Non-Af 80 BUN/Creatinine Ratio 20.3 H Glucose 167 H Calcium 9.4 Total Bilirubin 0.50 AST 12 L ALT 32 Alkaline Phosphatase 66 Total Protein 6.6 Albumin 3.7 Globulin 2.9 Albumin/Globulin Ratio 1.3 Ur Drug Screen Comment Ethyl Alcohol Discharge Plan Triage Chief Complaint: Mental Health ED Provider: Jorge Valenzuela Dx/Rx/DC Orders Clinical Impression: Depression, Suicidal thoughts Instructions: Depression Suicide Senior, ED Depression Primary Care Provider: Mat Escalante Referrals: Counseling,Center [Group of Physicians] - 1 Day Mat Escalante MD [Primary Care Provider] - Disposition Disposition: Home, Self Care
[2022-02-20 13:33] LABS: Absolute Lymphocyte Count 1.98 X10^3/uL (0.83-4.51); Absolute Neutrophil Count 5.8 X10^3/uL (2.0-7.7); Basophil# 0.05 X10^3/uL; Basophil% 0.6 % (0-1); Eosinophil# 0.13 X10^3/uL; Eosinophils% 1.5 % (0-5); Hematocrit 36.9 % (37-47); Hemoglobin 12.1 g/dL (12.0-15.0); Lymphocyte # 1.98 X10^3/ul (0.83-4.51); Lymphocyte % 23.5 % (19-41); Mean Corp Hgb Conc 32.8 g/dL (32-36); Mean Corpuscular Hgb 27.8 pg (27.0-32.0); Mean Corpuscular Volume 84.8 fL (81-99); Mean Platelet Vol. 12.2 fl (6.2-12.0); Monocyte# 0.47 X10^3/uL; Monocyte% 5.6 % (0-10); NRBC Flagged by Analyzer 0 % (0-5); Neutrophil # 5.77 X10^3/uL (2.7-7.7); Neutrophil % 68.6 % (47-70); Platelet Count 209 K/mm3 (150-450); RBC Distribution Width CV 13.6 % (11.6-14.6); RBC Distribution Width SD 42.5 fl (35.1-43.9); Red Blood Count 4.35 M/mm3 (4.2-5.4); White Blood Count 8.4 K/mm3 (4.4-11.0)
[2022-02-20 13:47] LABS: ALB/GLOB Ratio 1.3 RATIO (0.9-2.4); AST(SGOT) 12 U/L (15-37); Alanine Aminotransfer ALT/SGPT 32 U/L (13-56); Albumin, Serum 3.7 g/dL (3.2-5.0); Alkaline Phosphatase 66 U/L (45-117); Anion Gap 7 (5-15); BUN 15 mg/dL (7-18); BUN/Creat Ratio 20.3 RATIO (10-20); Calcium,Total 9.4 mg/dL (8.5-10.1); Chloride 100 mmol/L (98-107); Creatinine, Serum 0.74 mg/dL (0.55-1.02); EST Glomerular Filtration Rate 80 mL/min (>60); Est Glom Filt Rate - Afr Amer 96 mL/min (>60); Globulin 2.9 g/dL (2.2-4.2); Glucose 167 mg/dL (74-106); Potassium 3.5 mmol/L (3.5-5.1); Protein, Total 6.6 g/dL (6.4-8.2); Sodium Level 135 mmol/L (136-145)
[2022-02-20 13:56] LABS: Alcohol, Blood (Medical)-Serum < 3.0 mg/dL
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
[2022-02-20 14:09] LABS: Bacteria 0 SEEN /hpf (None Seen); Mucous, Urine 0 SEEN /hpf (<or=2+); Red Blood Cells-Urine 0 SEEN /hpf (0-5); Squamous Epithelial Cells - UA 0 SEEN /hpf (5-10); White Blood Cells 0 SEEN /hpf (0-5)
[2022-02-20 14:10] LABS: Color, Urine Straw (Yellow); Glucose, Dipstick 250 mg/dl (Normal); Ketone-Dipstick Negative (Negative); Leukocyte Esterase-Dipstick Negative /ul (Negative); Nitrite-Dipstick Negative (Negative); Occult Blood-Urine Negative /ul (Negative); Protein-Dipstick Negative (Negative); Specific Gravity, Urine 1.015 (1.002-1.030); Urine Bilirubin Dipstick Negative (Negative); Urine Clarity Clear (Clear); Urine Urobilinogen Normal (Normal)
[2022-02-20 14:25] LABS: Amphetamine Urine VISTA NEGATIVE (<1000 ng/mL); Barbiturate Urine VISTA NEGATIVE (< 200 ng/mL); Benzodiazepine Urine VISTA NEGATIVE (< 200 ng/mL); Cocaine Urine VISTA NEGATIVE (< 300 ng/mL); Ecstacy Urine VISTA NEGATIVE (< 500 ng/mL); Methadone Urine VISTA NEGATIVE (< 300 ng/mL); PCP Urine VISTA NEGATIVE (< 25 ng/mL); THC Urine VISTA NEGATIVE (< 50 ng/mL); Vista UDS pH Range 5
== END 2022-02-20 14:31 | disposition home or self-care (01) ==
PROVIDERS: Emergency Provider Emergency Medicine; PCP Family Medicine; Visit Provider Emergency Medicine
DX: F32.A Depression, unspecified (principal); R45.851 Suicidal ideations
CPT/HCPCS: 80053; 80307; 81001; 82077; 85025; 93005; 99282

== ENCOUNTER → 2022-04-19 | Outpatient (CLI) | payer MEDICARE, OTHER, SELFPAY ==
[2022-04-19 17:44] LABS: Absolute Lymphocyte Count 2.06 X10^3/uL (0.83-4.51); Absolute Neutrophil Count 4.2 X10^3/uL (2.0-7.7); Basophil# 0.06 X10^3/uL; Basophil% 0.8 % (0-1); Eosinophil# 0.28 X10^3/uL; Eosinophils% 3.9 % (0-5); Hematocrit 37.6 % (37-47); Lymphocyte # 2.06 X10^3/ul (0.83-4.51); Lymphocyte % 28.4 % (19-41); Mean Corp Hgb Conc 31.9 g/dL (32-36); Mean Corpuscular Hgb 27.6 pg (27.0-32.0); Mean Corpuscular Volume 86.6 fL (81-99); Monocyte% 8.3 % (0-10); NRBC Flagged by Analyzer 0 % (0-5); Neutrophil # 4.23 X10^3/uL (2.7-7.7); Neutrophil % 58.3 % (47-70); Platelet Count 197 K/mm3 (150-450); RBC Distribution Width CV 14.3 % (11.6-14.6); RBC Distribution Width SD 44.9 fl (35.1-43.9); Red Blood Count 4.34 M/mm3 (4.2-5.4); White Blood Count 7.3 K/mm3 (4.4-11.0)
[2022-04-19 18:01] LABS: Vitamin D,25 Hydroxy 31.8 ng/mL
[2022-04-19 18:17] LABS: AST(SGOT) 29 U/L (15-37); Alanine Aminotransfer ALT/SGPT 61 U/L (13-56); Albumin, Serum 3.5 g/dL (3.2-5.0); Alkaline Phosphatase 82 U/L (45-117); Anion Gap 7 (5-15); BUN 13 mg/dL (7-18); BUN/Creat Ratio 17.5 RATIO (10-20); Calcium,Total 9.2 mg/dL (8.5-10.1); Chloride 102 mmol/L (98-107); Cholesterol 140 mg/dL (200); Creatinine, Serum 0.74 mg/dL (0.55-1.02); EST Glomerular Filtration Rate 79 mL/min (>60); Est Glom Filt Rate - Afr Amer 96 mL/min (>60); Globulin 3.5 g/dL (2.2-4.2); Glucose 212 mg/dL (74-106); High Density Lipoprotein 56 mg/dL; Potassium 3.8 mmol/L (3.5-5.1); Sodium Level 137 mmol/L (136-145); Thyroid Stim Hormone (TSH) 1.97 uIU/mL (0.358-3.74); Triglycerides 215 mg/dL; Very Low Density Lipoprotein 43 mg/dL (5-40)
[2022-04-19 18:21] LABS: Hemoglobin A1c 7.1 % (3.8-5.6)
[2022-04-19 18:31] LABS: Microalbumin,Random Urine 9.7 mg/L (NO RANGE EST.); Microalbumin:Creatinine Ratio 26.8 mg/g CRE (<30 mg/g CRE)
== END | disposition home or self-care (01) ==
LOC: MFPLAB 16:23
PROVIDERS: PCP Family Medicine; Referring Provider Family Medicine; Visit Provider Family Medicine
DX: E11.9 Type 2 diabetes mellitus without complications (principal); E55.9 Vitamin D deficiency, unspecified
CPT/HCPCS: 36415; 80053; 80061; 82043; 82306; 82570; 83036; 84443; 85025

== ENCOUNTER → 2022-05-03 | Outpatient (CLI) | payer MEDICARE, OTHER, SELFPAY ==
--- NOTE | 2022-05-03 12:34 | STRESSREP ---
Stress Test Report Date: 05-03-2022 Procedure: Pharmacologic stress nuclear imaging study Indications: Chest pain; abnormal ECG Consent: Per the patient Procedure: The patient underwent pharmacologic (Regadenoson 0.4mg ) evaluation with a peak heart rate of 80 beats per minute (58%predicted maximal heart rate) and a resting blood pressure of 188/88 mmHg and a peak blood pressure of 202/70 mmHg. The baseline ECG demonstrated sinus rhythm. The peak pharmacologic ECG demonstrated no obvious ECG changes. There were no cardiac dysrhythmias pretest, during pharmacologic infusion, or recovery. There was no complaint of chest discomfort during pharmacologic infusion or recovery. The examination was discontinued secondary to completion of protocol. Impression: 1. Pharmacologic (Regadenoson) evaluation 2. Peak pharmacologic ECG with no obvious ECG change. 3. There were no cardiac dysrhythmias pretest, during pharmacologic infusion, or recovery. 4. Nuclear images pending Myocardial perfusion imaging study: Technique: The patient was injected with 12.0 millicuries of technetium 99m Cardiolite and subsequently rest SPECT Cardiolite nuclear imaging was obtained in the horizontal long, vertical long, and short axis views. The patient underwent pharmacologic (Regadenoson) evaluation with a peak heart rate of 80 beats per minute (58% percent predicted maximal heart rate) and a resting blood pressure of 188/80 mmHg and a peak blood pressure of 202/70 mmHg. The patient was injected with 35.6 millicuries of technetium 99m Cardiolite and subsequently stress SPECT Cardiolite nuclear imaging was obtained in the horizontal long, vertical long, and short axis views. A gated Cardiolite study at peak stress was obtained. Interpretation: Rest and stress SPECT Cardiolite nuclear imaging status post realignment, normalization, and attenuation correction demonstrate relative uniform tracer uptake and myocardial perfusion appearing within normal limits. There is end systolic thickening and brightening. The gated Cardiolite study demonstrates myocardial thickening and inward wall motion. The reported LVEF is 89%. Impression: 1. Rest and stress SPECT Cardiolite nuclear imaging demonstrate relative uniform tracer uptake and myocardial perfusion appearing within normal limits. 2. The gated Cardiolite study reports an LVEF of 89%. This note was generated with [employer] software. It may contain incorrect words, spelling, and punctuation that were not noted in checking the note before signing.
== END | disposition home or self-care (01) ==
LOC: CVS 06:45
PROVIDERS: PCP Family Medicine; Visit Provider Family Medicine
DX: R94.31 Abnormal electrocardiogram [ECG] [EKG] (principal)
CPT/HCPCS: 78452; 93017; A9500; A4216; J2785

== ENCOUNTER → 2022-08-23 | Outpatient (CLI) | payer MEDICARE, OTHER, SELFPAY ==
[2022-08-23 12:10] LABS: Absolute Lymphocyte Count 2.39 X10^3/uL (0.83-4.51); Absolute Neutrophil Count 3.7 X10^3/uL (2.0-7.7); Basophil# 0.07 X10^3/uL; Eosinophil# 0.47 X10^3/uL; Eosinophils% 6.6 % (0-5); Hematocrit 38.3 % (37-47); Hemoglobin 12.1 g/dL (12.0-15.0); Lymphocyte # 2.39 X10^3/ul (0.83-4.51); Lymphocyte % 33.5 % (19-41); Mean Corp Hgb Conc 31.6 g/dL (32-36); Mean Corpuscular Hgb 27.8 pg (27.0-32.0); Mean Corpuscular Volume 87.8 fL (81-99); Mean Platelet Vol. 12.4 fl (6.2-12.0); Monocyte# 0.52 X10^3/uL; Monocyte% 7.3 % (0-10); NRBC Flagged by Analyzer 0 % (0-5); Neutrophil # 3.68 X10^3/uL (2.7-7.7); Neutrophil % 51.5 % (47-70); Platelet Count 210 K/mm3 (150-450); RBC Distribution Width CV 13.9 % (11.6-14.6); RBC Distribution Width SD 44.8 fl (35.1-43.9); Red Blood Count 4.36 M/mm3 (4.2-5.4); White Blood Count 7.1 K/mm3 (4.4-11.0)
[2022-08-23 12:31] LABS: Hemoglobin A1c 7.3 % (3.8-5.6)
[2022-08-23 12:32] LABS: Vitamin D,25 Hydroxy 106.1 ng/mL
[2022-08-23 12:46] LABS: Microalbumin,Random Urine 11.2 mg/L (NO RANGE EST.); Microalbumin:Creatinine Ratio 23.9 mg/g CRE (<30 mg/g CRE)
[2022-08-23 12:52] LABS: AST(SGOT) 27 U/L (15-37); Alanine Aminotransfer ALT/SGPT 39 U/L (13-56); Albumin, Serum 3.6 g/dL (3.2-5.0); Alkaline Phosphatase 80 U/L (45-117); Anion Gap 9 (5-15); BUN 14 mg/dL (7-18); BUN/Creat Ratio 19.7 RATIO (10-20); Calcium,Total 9.9 mg/dL (8.5-10.1); Chloride 103 mmol/L (98-107); Cholesterol 127 mg/dL (200); Creatinine, Serum 0.71 mg/dL (0.55-1.02); EST Glomerular Filtration Rate 83 mL/min (>60); Est Glom Filt Rate - Afr Amer 101 mL/min (>60); Globulin 3.5 g/dL (2.2-4.2); Glucose 211 mg/dL (74-106); High Density Lipoprotein 61 mg/dL; Protein, Total 7.1 g/dL (6.4-8.2); Sodium Level 137 mmol/L (136-145); Triglycerides 172 mg/dL; Very Low Density Lipoprotein 34 mg/dL (5-40)
== END | disposition home or self-care (01) ==
LOC: MFPLAB 09:42
PROVIDERS: PCP Family Medicine; Visit Provider Family Medicine
DX: E11.9 Type 2 diabetes mellitus without complications (principal); E55.9 Vitamin D deficiency, unspecified
CPT/HCPCS: 36415; 80053; 80061; 82043; 82306; 82570; 83036; 85025

== ENCOUNTER → 2022-12-02 | Outpatient (CLI) | payer MEDICARE, OTHER, SELFPAY ==
--- NOTE | 2022-12-02 12:27 | MRI_ITS ---
STUDY: MRI BRAIN WITH AND WITHOUT CONTRAST REASON FOR EXAM: Female, 82 years old. HEADACHES, daily [id number], Rt eye throbs TECHNIQUE: Multiplanar multisequence imaging of the brain was performed without and following the administration of intravenous contrast. COMPARISON: Brain MRI 04/16/2019 FINDINGS: The ventricles, cisterns, and sulci are within normal limits for patients age. There is no restricted diffusion to suggest acute ischemia or infarction. No succeptibility artifact to suggest intracranial hemorrhage or mineralization. Major intracranial signal voids are preserved. There is no midline shift, mass effect, or extra axial fluid collections are seen. No CP angle or IAC mass is seen. The orbits are unremarkable. The sella turcica and craniovertebral junction are within normal limits. The visualized paranasal sinuses are clear. The mastoid air cells are clear. No abnormal enhancement is seen. MRI/Brain W/WO Contrast IMPRESSION: No intracranial hemorrhage, acute infarct, or space occupying lesion seen. No significant interval change from the prior study. Electronically Signed: Dano Alamo MD at 23:46 EDT ,
[2022-12-02 13:21] LABS: CREATININE FINGERSTICK 0.9 mg/dL (0.55-1.02); EGFR FINGERSTICK > 60.0000 mL/min (>60)
== END | disposition home or self-care (01) ==
LOC: MRI 12:25
PROVIDERS: PCP Family Medicine; Referring Provider Physician Assistant; Visit Provider Physician Assistant
DX: G44.89 Other headache syndrome (principal)
CPT/HCPCS: 70553; A9575

== ENCOUNTER → 2022-12-27 | Outpatient (CLI) | payer MEDICARE, OTHER, SELFPAY ==
[2022-12-27 12:29] LABS: Absolute Lymphocyte Count 1.84 X10^3/uL (0.83-4.51); Basophil# 0.08 X10^3/uL; Basophil% 1.4 % (0-1); Eosinophil# 0.49 X10^3/uL; Eosinophils% 8.3 % (0-5); Hematocrit 37.5 % (37-47); Hemoglobin 12.1 g/dL (12.0-15.0); Lymphocyte # 1.84 X10^3/ul (0.83-4.51); Lymphocyte % 31.3 % (19-41); Mean Corp Hgb Conc 32.3 g/dL (32-36); Mean Corpuscular Hgb 28.2 pg (27.0-32.0); Mean Corpuscular Volume 87.4 fL (81-99); Mean Platelet Vol. 12.6 fl (6.2-12.0); Monocyte# 0.44 X10^3/uL; Monocyte% 7.5 % (0-10); NRBC Flagged by Analyzer 0 % (0-5); Neutrophil # 3.02 X10^3/uL (2.7-7.7); Neutrophil % 51.3 % (47-70); Platelet Count 190 K/mm3 (150-450); RBC Distribution Width CV 14.3 % (11.6-14.6); RBC Distribution Width SD 45.5 fl (35.1-43.9); Red Blood Count 4.29 M/mm3 (4.2-5.4); White Blood Count 5.9 K/mm3 (4.4-11.0)
[2022-12-27 12:49] LABS: Vitamin D,25 Hydroxy 40.1 ng/mL
[2022-12-27 13:19] LABS: ALB/GLOB Ratio 1.2 RATIO (0.9-2.4); AST(SGOT) 26 U/L (15-37); Alanine Aminotransfer ALT/SGPT 40 U/L (13-56); Albumin, Serum 3.8 g/dL (3.2-5.0); Alkaline Phosphatase 75 U/L (45-117); Anion Gap 8 (5-15); BUN 7 mg/dL (7-18); BUN/Creat Ratio 9.5 RATIO (10-20); Chloride 103 mmol/L (98-107); Cholesterol 128 mg/dL (200); Creatinine, Serum 0.74 mg/dL (0.55-1.02); EST Glomerular Filtration Rate 80 mL/min (>60); Est Glom Filt Rate - Afr Amer 97 mL/min (>60); Globulin 3.3 g/dL (2.2-4.2); Glucose 217 mg/dL (74-106); High Density Lipoprotein 59 mg/dL; Potassium 3.7 mmol/L (3.5-5.1); Protein, Total 7.1 g/dL (6.4-8.2); Sodium Level 138 mmol/L (136-145); Triglycerides 189 mg/dL; Very Low Density Lipoprotein 38 mg/dL (5-40)
[2022-12-27 14:23] LABS: Hemoglobin A1c 7.4 % (3.8-5.6)
== END | disposition home or self-care (01) ==
LOC: MFPLAB 11:04
PROVIDERS: PCP Family Medicine; Visit Provider Family Medicine
DX: E11.8 Type 2 diabetes mellitus with unspecified complications (principal); E55.9 Vitamin D deficiency, unspecified
CPT/HCPCS: 36415; 80053; 80061; 82306; 83036; 85025

== ENCOUNTER 2023-02-01 20:44 | Emergency (ER) | payer MEDICARE, OTHER, SELFPAY ==
[2023-02-01 20:44] VITALS: BP 169/75; O2SAT 98
[2023-02-01 20:45] VITALS: BP 158/79; PULSE 78; RESP 17; TEMP 36.7; O2SAT 98
--- NOTE | 2023-02-01 21:32 | EKG12_ITS ---
Test Reason : CONFUSION Blood Pressure : / mmHG Vent. Rate : 076 BPM Atrial Rate : 076 BPM P-R Int : 156 ms QRS Dur : 070 ms QT Int : 394 ms P-R-T Axes : 027 -23 001 degrees QTc Int : 443 ms Normal sinus rhythm Minimal voltage criteria for LVH, may be normal variant ( R in aVL ) Inferior infarct , age undetermined Cannot rule out Anterior infarct , age undetermined Abnormal ECG Confirmed by JESSEE العلي, VETO ([id number]), photographic editor ALYSSA MAR ([id number]) on 02/03/2023 12:10:58 PM Referred By: Confirmed By:VETO HOOKS MD
--- NOTE | 2023-02-01 21:33 | EDS_ITS ---
HPI History of Present Illness Chief Complaint: Confusion Narrative Narrative: 82-year-old female presenting with confusion. Patient's family states this is a long-term issue and they see Dr. Bailon for this. There is no diagnosis of dementia. Patient recently but has been having headaches and had a recent CT scan and eye exam. He is came back unremarkable. Patient has not been taking her medications or at least it is believed that she is not. Her does most of her care and cannot get her to take her medications for the last week. Sometimes she gets caught taking a few here and there but does not know what she is taking. She is combative and confused. She has not a fever, chills. No history of UTI. No nausea or vomiting. No history of trauma.[facility] Medical History Carpal tunnel syndrome Cataracts, bilateral Diabetes GERD (gastroesophageal reflux disease) Headache Hearing problem Hx of emotional problems Hypertension Major depressive disorder Tardive dyskinesia Vision problems Home Medications aspirin 81 mg tablet,delayed release (Adult Aspirin Regimen) 81 mg PO DAILY 02/28/22 [History Last Taken Unknown] atorvastatin 40 mg tablet ea PO 02/28/22 [History Last Taken Unknown] brimonidine 0.2 % eye drops ml ophthalmic (eye) 02/28/22 [History Last Taken Unknown] deutetrabenazine 6 mg tablet (Austedo) 6 mg PO BID 02/28/22 [History Last Taken Unknown] hydrochlorothiazide 12.5 mg tablet ea PO 02/28/22 [History Last Taken Unknown] insulin glargine 100 unit/mL (3 mL) subcutaneous pen (Lantus Solostar U-100 Insulin) ml subcut 02/28/22 [History Last Taken Unknown] metformin 500 mg tablet ea PO 02/28/22 [History Last Taken Unknown] pantoprazole 40 mg tablet,delayed release ea PO 02/28/22 [History Last Taken Unknown] prednisolone acetate 1 % eye drops,suspension ml ophthalmic (eye) 02/28/22 [History Last Taken Unknown] quinapril 20 mg tablet ea PO 02/28/22 [History Last Taken Unknown] timolol maleate 0.5 % eye drops 1 drp ophthalmic (eye) BID 02/28/22 [History Last Taken Unknown] mirtazapine 7.5 mg tablet 7.5 mg PO QHS #90 tabs 10/10/22 [Rx Last Taken Unknow n] sertraline 100 mg tablet 100 mg PO BID #180 tabs 10/10/22 [Rx Last Taken Unknown] Allergy/AdvReac Type Severity Reaction Status Date / Time codeine Allergy Rash Verified 02/01/23 20:45 morphine Allergy Rash Verified 02/01/23 20:45 Family History Other Cancer Diabetes Surgical History H/O repair of rotator cuff H/O thyroidectomy H/O: hysterectomy History of carpal tunnel surgery History of knee replacement Social History Smoking Status: Never smoker alcohol intake: never substance use type: does not use ROS ROS ED Constitutional Constitutional ED: Denies chills, fever(s) or sweats Eyes Eyes: Denies blurry vision or change in vision ENT ENT ED: Denies ear pain or sore throat Cardiovascular Cardiovascular: Denies chest pain, palpitations or racing heartbeat Respiratory/Chest Respiratory/Chest: Denies cough, dyspnea or sputum Gastrointestinal Gastrointestinal: Denies abdominal pain, constipation, diarrhea, nausea or vomiting Genitourinary Genitourinary ED: Denies dysuria, hematuria or urinary frequency Musculoskeletal Musculoskeletal: Denies arthralgias, myalgias or neck pain Integumentary Denies abscess, Abrasions or rash Neurologic Neurologic: Denies headache(s), paresthesias or weakness Psychiatric Psychiatric: Denies anxiety, depression, suicidal ideation or suicidal thoughts Endocrine Endocrinology: Denies polydipsia or polyuria EXAM Physical Exam Const Vital Signs: 02/01/23 20:45 02/01/23 20:44 02/01/23 22:44 Temperature 98.1 F Temperature Source Temporal Pulse Rate 78 78 Respiratory Rate 17 16 Blood Pressure 158/79 H 169/75 H 130/90 H Blood Pressure Mean 105 106 103 Pulse Ox 98 98 97 Oxygen Delivery Method Room Air Room Air Room Air Positive well nourished General Appearance ED: NAD; Negative for pallor HEENT Reports moist mucous membranes Negative for trauma Eyes PERRL and EOMs intact bilaterally Chest Wall inspection of chest normal Resp normal respiratory effort and clear to auscultation bilaterally Auscultation: Negative for rales, rhonchi or wheezes Cardio regular rate and regular rhythm GI normal to inspection, nondistended, normoactive bowel sounds Neuro CN's II-XII intact bilaterally and no sensory deficits noted Sensorium / Orientation: alert Motor Exam: strength 5/5 throughout Psych Psych Narrative: Confused Skin no rashes or lesions noted and no wounds General Skin Exam: Negative for jaundice or pallor MDM MDM MDM Narrative Medical decision making narrative: Patient presenting with confusion. Differential includes UTI, pneumonia, dehydration, electrolyte abnormalities, dementia. Patient has no focal neurologic deficits or lateralizing signs or symptoms. Patient has recent head CT which was negative. CBC and BMP unremarkable. Urinalysis negative for infection. COVID-negative. Influenza A+. Patient has not had any symptoms of fever, chills, cough. We discussed this with the patient's family and they feel this is probably a false negative as that she has not had any symptoms of this. There is no explanation for confusion although she might have some baseline dementia. Patient's and family felt that they can take care of her at home we will try to her medications. They will follow-up with her PCP to assure resolution. Return precautions were given. Impression: 1. Confusion 2. Influenza A positive Lab Data Labs: Laboratory Results - last 24 hr 02/01/23 02/01/23 21:50 23:30 WBC 9.5 RBC 4.38 Hgb 12.2 Hct 37.1 MCV 84.7 MCH 27.9 MCHC 32.9 RDW Std Deviation 44.1 H RDW Coeff of Dario 14.3 Plt Count 228 MPV 11.7 Immature Gran % (Auto) 0.200 Neut % (Auto) 62.2 Lymph % (Auto) 27.4 Powell % (Auto) 8.1 Eos % (Auto) 1.3 Baso % (Auto) 0.8 Absolute Neuts (auto) 5.9 Absolute Lymphs (auto) 2.60 Nucleated RBC % 0 Sodium 138 Potassium 3.5 Chloride 102 Carbon Dioxide 27.0 Anion Gap 9 BUN 17 Creatinine 0.66 Est GFR (MDRD) Af Amer 109 Est GFR (MDRD) Non-Af 90 BUN/Creatinine Ratio 25.7 H Glucose 203 H Calcium 9.3 Troponin I High Sens 14 Urine Color Yellow Urine Clarity Clear Urine pH 6.5 Ur Specific [place] 1.015 Urine Protein 30 H Urine Glucose (UA) 1000 H Urine Ketones 5 H Urine Occult Blood 25 H Urine Nitrite Negative Urine Bilirubin Negative Urine Urobilinogen 1 H Ur Leukocyte Esterase Negative Urine RBC 0-5 SEEN Urine WBC 0-5 SEEN Ur Squamous Epith Cells 0 SEEN Urine Bacteria 0 SEEN Urine Mucus 0 SEEN Radiography Diagnostic Testing: Clinical Impression(s) from Imaging Studies Chest X-Ray 02/01/23 21:50 IMPRESSION: 1. Mildly low lung volumes. No convincing acute cardiothoracic abnormality. 2. Chronic changes of the shoulders. Electronically Signed: Diana Carlson MD at 22:16 EST , Discharge Plan Triage Chief Complaint: Confusion ED Provider: Trey Mc Dx/Rx/DC Orders Instructions: ED ALOC, ED Influenza (Adult) Prescriptions: No Action brimonidine 0.2 % drops ophthalmic (eye) Patient Comments: Instill 1 drop into both eyes daily pantoprazole 40 mg tablet,delayed release (DR/EC) PO Patient Comments: ] TAKE 1 TABLET BY MOUTH BEFORE BREAKFAST metformin 500 mg tablet PO Patient Comments: TAKE 1 TABLET BY MOUTH TWICE DAILY quinapril 20 mg tablet PO Patient Comments: TAKE 1 TABLET BY MOUTH DAILY hydrochlorothiazide 12.5 mg tablet PO Patient Comments: Take 1 tablet by mouth daily atorvastatin 40 mg tablet PO Patient Comments: TAKE 1 TABLET DAILY insulin glargine [Lantus Solostar U-100 Insulin] 100 unit/mL (3 mL) insulin pen subcut Patient Comments: INJECT 18 UNITS SUBCUTANEOUSLY DAILY timolol maleate 0.5 % drops 1 drp ophthalmic (eye) BID Patient Comments: 1 drop in right eye daily prednisolone acetate 1 % drops,suspension ophthalmic (eye) Patient Comments: Instill 1 drop in right eye daily Austedo 6 mg tablet 6 mg PO BID aspirin [Adult Aspirin Regimen] 81 mg tablet,delayed release (DR/EC) 81 mg PO DAILY mirtazapine 7.5 mg tablet 7.5 mg PO QHS Qty: 90 1RF sertraline 100 mg tablet 100 mg PO BID Qty: 180 2RF Primary Care Provider: Mat Escalante Referrals: Mat Escalante MD [Primary Care Provider] - Disposition Disposition: Home, Self Care
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
[2023-02-01 22:00] LABS: Absolute Neutrophil Count 5.9 X10^3/uL (2.0-7.7); Basophil# 0.08 X10^3/uL; Basophil% 0.8 % (0-1); Eosinophil# 0.12 X10^3/uL; Eosinophils% 1.3 % (0-5); Hematocrit 37.1 % (37-47); Hemoglobin 12.2 g/dL (12.0-15.0); Lymphocyte % 27.4 % (19-41); Mean Corp Hgb Conc 32.9 g/dL (32-36); Mean Corpuscular Hgb 27.9 pg (27.0-32.0); Mean Corpuscular Volume 84.7 fL (81-99); Mean Platelet Vol. 11.7 fl (6.2-12.0); Monocyte# 0.77 X10^3/uL; Monocyte% 8.1 % (0-10); NRBC Flagged by Analyzer 0 % (0-5); Neutrophil # 5.91 X10^3/uL (2.7-7.7); Neutrophil % 62.2 % (47-70); Platelet Count 228 K/mm3 (150-450); RBC Distribution Width CV 14.3 % (11.6-14.6); RBC Distribution Width SD 44.1 fl (35.1-43.9); Red Blood Count 4.38 M/mm3 (4.2-5.4); White Blood Count 9.5 K/mm3 (4.4-11.0)
[2023-02-01 22:29] LABS: Anion Gap 9 (5-15); BUN 17 mg/dL (7-18); BUN/Creat Ratio 25.7 RATIO (10-20); Calcium,Total 9.3 mg/dL (8.5-10.1); Chloride 102 mmol/L (98-107); Creatinine, Serum 0.66 mg/dL (0.55-1.02); EST Glomerular Filtration Rate 90 mL/min (>60); Est Glom Filt Rate - Afr Amer 109 mL/min (>60); Glucose 203 mg/dL (74-106); Potassium 3.5 mmol/L (3.5-5.1); Sodium Level 138 mmol/L (136-145); Troponin-I HS 14 pg/mL (3.0-54.0)
[2023-02-01 22:44] VITALS: BP 130/90; PULSE 78; RESP 16; O2SAT 97
[2023-02-01 23:40] LABS: Bacteria 0 SEEN /hpf (None Seen); Mucous, Urine 0 SEEN /hpf (<or=2+); Squamous Epithelial Cells - UA 0 SEEN /hpf (5-10)
[2023-02-01 23:42] LABS: Color, Urine Yellow (Yellow); Glucose, Dipstick 1000 mg/dl (Normal); Ketone-Dipstick 5 mg/dl (Negative); Leukocyte Esterase-Dipstick Negative /ul (Negative); Nitrite-Dipstick Negative (Negative); Occult Blood-Urine 25 /ul (Negative); Protein-Dipstick 30 mg/dl (Negative); Specific Gravity, Urine 1.015 (1.002-1.030); Urine Bilirubin Dipstick Negative (Negative); Urine Clarity Clear (Clear); Urine Urobilinogen 1 mg/dl (Normal); Urine pH 6.5 (5.0 - 8.0)
[2023-02-01 23:48] LABS: Red Blood Cells-Urine 0-5 SEEN /hpf (0-5); White Blood Cells 0-5 SEEN /hpf (0-5)
[2023-02-01 23:57] VITALS: BP 170/81; PULSE 75; RESP 16; O2SAT 98
== END 2023-02-02 00:27 | disposition home or self-care (01) ==
PROVIDERS: Emergency Provider Student in an Organized Health Care Education/Training Program; PCP Family Medicine; Visit Provider Student in an Organized Health Care Education/Training Program
DX: R41.0 Disorientation, unspecified (principal); E11.9 Type 2 diabetes mellitus without complications; I10 Essential (primary) hypertension; J10.1 Influenza due to other identified influenza virus with other respiratory manifestations
CPT/HCPCS: 71045; 80048; 81001; 84484; 85025; 87428; 93005; 99284; P9612; A4216

== ENCOUNTER → 2023-02-05 | Outpatient (CLI) | payer MEDICARE, OTHER, SELFPAY ==
[2023-02-05 13:55] LABS: Mucous, Urine 0 SEEN /hpf (<or=2+); Red Blood Cells-Urine 0 SEEN /hpf (0-5)
[2023-02-05 15:43] LABS: Color, Urine Yellow (Yellow); Glucose, Dipstick Normal (Normal); Ketone-Dipstick 5 mg/dl (Negative); Leukocyte Esterase-Dipstick 25 /ul (Negative); Nitrite-Dipstick Negative (Negative); Occult Blood-Urine Negative /ul (Negative); Protein-Dipstick Negative (Negative); Urine Bilirubin Dipstick Negative (Negative); Urine Clarity Clear (Clear); Urine Urobilinogen 1 mg/dl (Normal)
[2023-02-05 15:59] LABS: Squamous Epithelial Cells - UA 0-5 SEEN /hpf (5-10); White Blood Cells 0-5 SEEN /hpf (0-5)
[2023-02-05 16:00] LABS: Bacteria RARE /hpf (None Seen)
== END | disposition home or self-care (01) ==
PROVIDERS: PCP Family Medicine; Visit Provider Family Medicine
DX: R41.0 Disorientation, unspecified (principal)
CPT/HCPCS: 81001; 87077; 87086; 87088; 87186

== ENCOUNTER 2023-02-14 12:22 | Outpatient (CLI) | payer MEDICARE, OTHER, SELFPAY | END 2023-02-14 23:59 | disposition home or self-care (01) | LOC: MFPLAB 12:24 | PROVIDERS: PCP Family Medicine; Visit Provider Family Medicine | DX: R41.0 Disorientation, unspecified (principal) | CPT/HCPCS: 87086 ==

== ENCOUNTER → 2023-06-10 | Outpatient (REF) | payer MEDICARE, OTHER, SELFPAY ==
[2023-06-10 09:24] LABS: Hematocrit 33.5 % (37-47); Hemoglobin 10.8 g/dL (12.0-15.0); Mean Corp Hgb Conc 32.2 g/dL (32-36); Mean Corpuscular Hgb 27.6 pg (27.0-32.0); Mean Corpuscular Volume 85.7 fL (81-99); Platelet Count 183 K/mm3 (150-450); RBC Distribution Width CV 14.6 % (11.6-14.6); RBC Distribution Width SD 45.7 fl (35.1-43.9); Red Blood Count 3.91 M/mm3 (4.2-5.4); White Blood Count 6.4 K/mm3 (4.4-11.0)
[2023-06-10 09:51] LABS: Anion Gap 6 (5-15); BUN 8 mg/dL (7-18); BUN/Creat Ratio 14.1 RATIO (10-20); Chloride 107 mmol/L (98-107); Cholesterol 113 mg/dL (200); Creatinine, Serum 0.57 mg/dL (0.55-1.02); EST Glomerular Filtration Rate 108 mL/min (>60); Est Glom Filt Rate - Afr Amer 130 mL/min (>60); Glucose 113 mg/dL (74-106); High Density Lipoprotein 50 mg/dL; Potassium 3.6 mmol/L (3.5-5.1); Sodium Level 141 mmol/L (136-145); Triglycerides 97 mg/dL; Very Low Density Lipoprotein 19 mg/dL (5-40)
[2023-06-10 12:29] LABS: Hemoglobin A1c 7.3 % (3.8-5.6)
== END ==
LOC: OLS.WCC 05:00
PROVIDERS: PCP Family Medicine; Visit Provider Family Medicine
DX: E11.9 Type 2 diabetes mellitus without complications (principal); I10 Essential (primary) hypertension; E78.5 Hyperlipidemia, unspecified; Z79.899 Other long term (current) drug therapy
CPT/HCPCS: 36415; 80048; 80061; 83036; 85027

== ENCOUNTER → 2023-07-11 | Outpatient (CLI) | payer MEDICARE, OTHER, SELFPAY ==
[2023-07-11 12:41] LABS: Absolute Neutrophil Count 4.1 X10^3/uL (2.0-7.7); Basophil# 0.09 X10^3/uL; Basophil% 1.2 % (0-1); Eosinophil# 0.66 X10^3/uL; Eosinophils% 8.8 % (0-5); Hematocrit 36.3 % (37-47); Hemoglobin 11.5 g/dL (12.0-15.0); Lymphocyte % 26.8 % (19-41); Mean Corp Hgb Conc 31.7 g/dL (32-36); Mean Corpuscular Hgb 27.3 pg (27.0-32.0); Mean Corpuscular Volume 86.2 fL (81-99); Mean Platelet Vol. 12.4 fl (6.2-12.0); Monocyte# 0.53 X10^3/uL; Monocyte% 7.1 % (0-10); NRBC Flagged by Analyzer 0 % (0-5); Neutrophil # 4.14 X10^3/uL (2.7-7.7); Neutrophil % 55.4 % (47-70); Platelet Count 219 K/mm3 (150-450); RBC Distribution Width CV 14.1 % (11.6-14.6); RBC Distribution Width SD 43.9 fl (35.1-43.9); Red Blood Count 4.21 M/mm3 (4.2-5.4); White Blood Count 7.5 K/mm3 (4.4-11.0)
[2023-07-11 12:43] LABS: Microalbumin,Random Urine 6.8 mg/L (NO RANGE EST.)
[2023-07-11 13:06] LABS: ALB/GLOB Ratio 1.2 RATIO (0.9-2.4); AST(SGOT) 29 U/L (15-37); Alanine Aminotransfer ALT/SGPT 38 U/L (13-56); Albumin, Serum 3.7 g/dL (3.2-5.0); Alkaline Phosphatase 82 U/L (45-117); Anion Gap 5 (5-15); BUN 15 mg/dL (7-18); Calcium,Total 9.1 mg/dL (8.5-10.1); Chloride 104 mmol/L (98-107); Cholesterol 129 mg/dL (200); Creatinine, Serum 0.75 mg/dL (0.55-1.02); EST Glomerular Filtration Rate 78 mL/min (>60); Est Glom Filt Rate - Afr Amer 95 mL/min (>60); Globulin 3.2 g/dL (2.2-4.2); Glucose 223 mg/dL (74-106); High Density Lipoprotein 52 mg/dL; Potassium 3.7 mmol/L (3.5-5.1); Protein, Total 6.9 g/dL (6.4-8.2); Sodium Level 137 mmol/L (136-145); Triglycerides 126 mg/dL; Very Low Density Lipoprotein 25 mg/dL (5-40)
[2023-07-11 13:26] LABS: Hemoglobin A1c 7.2 % (3.8-5.6)
[2023-07-11 13:27] LABS: Vitamin D,25 Hydroxy 29.4 ng/mL
== END | disposition home or self-care (01) ==
LOC: MTLAB 10:05
PROVIDERS: PCP Family Medicine; Referring Provider Family Medicine; Visit Provider Family Medicine
DX: E11.8 Type 2 diabetes mellitus with unspecified complications (principal); E55.9 Vitamin D deficiency, unspecified
CPT/HCPCS: 36415; 80053; 80061; 82043; 82306; 82570; 83036; 85025

== ENCOUNTER → 2023-08-28 | Outpatient (CLI) | payer MEDICARE, OTHER, SELFPAY ==
--- NOTE | 2023-08-28 07:57 | ART_ITS ---
Reason For Study: Unequal BP Procedure A bilateral upper extremity continuous wave Doppler with analog waveform analysis and segmental pressures. Left Segmental Pressures Left brachial= 169mmHg. Left ulnar= 191mmHg. Left radial= 176mmHg. The left radial waveforms are triphasic. The left ulnar waveforms are triphasic. Right Segmental Pressures Right brachial= 157mmHg. Right ulnar= 189mmHg. Right radial= 197mmHg. The right radial waveforms are triphasic. The right ulnar waveforms are triphasic. Indices The right wrist-brachial index by the ulnar artery is 1.12. The right wrist-brachial index by the radial artery is 1.17. The left wrist-brachial index by the ulnar artery is 1.13. The left wrist- brachial index by the radial artery is 1.04. VL/Upper Extremity Arterial Study Interpretation Summary Normal right upper extremity radial and ulnar artery brachial indices of 1.17 a nd 1.12 respectively with normal triphasic Doppler waveforms Right brachial artery systolic pressure 157 Normal left upper extremity radial artery and ulnar artery brachial indices at 1.04 and 1.13 respectively with normal triphasic Doppler waveforms Left brachial artery systolic pressure 169 Ordering Physician: Mat Escalante Referring Physician: Mat Escalante Performed By: Amber Shields RVT and Student
== END | disposition home or self-care (01) ==
LOC: CVS 07:56
PROVIDERS: PCP Family Medicine; Referring Provider Family Medicine; Visit Provider Family Medicine
DX: R09.89 Other specified symptoms and signs involving the circulatory and respiratory systems (principal)
CPT/HCPCS: 93923

== ENCOUNTER → 2023-09-05 | Outpatient (CLI) | payer MEDICARE, OTHER, SELFPAY ==
--- NOTE | 2023-09-05 10:32 | RAD_ITS ---
STUDY: X-RAY - RIGHT SHOULDER REASON FOR EXAM: Female, 83 years old. Pain. TECHNIQUE: 4 view(s) of the shoulder. COMPARISON: September 05, 2023 FINDINGS: Marked osteopenia. Moderate to severe arthrosis of the glenohumeral joint, unchanged. Mild arthrosis at the AC joint is unchanged. Normal acromion. Sclerosis and cystic changes of the humeral head unaltered from the prior study. Stable calcific tendinosis. Normal visualized pulmonary apex. RAD/Shoulder min 2 Views IMPRESSION: Stable osteopenia, moderate to severe arthrosis of the glenohumeral joint, mild arthrosis of the AC joint and calcific tendinosis. No acute abnormality. Electronically Signed: Serg Goldstein MD at 11:01 EDT ,
--- NOTE | 2023-09-05 10:32 | RAD_ITS ---
STUDY: X-RAY - RIGHT CLAVICLE REASON FOR EXAM: Female, 83 years old. Pain. TECHNIQUE: 4 view(s) of the clavicle. COMPARISON: October 07, 2019 FINDINGS: Osteopenia. Fracture of the distal clavicle with increase in displacement of the proximal fragment of the clavicular fracture which now is displaced approximately 2.4 cm from the distal fracture fragment. Progression of mild arthrosis of the AC joint and moderate to marked arthrosis of the glenohumeral joint. New calcific tendinosis. Normal visualized pulmonary apex. RAD/Clavicle IMPRESSION: Osteopenia with substantial widening of the distal clavicle at the fracture site as described. 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 New calcific tendinosis. Electronically Signed: Serg Goldstein MD at 11:06 EDT ,
== END | disposition home or self-care (01) ==
LOC: MTRAD 10:31
PROVIDERS: PCP Family Medicine; Referring Provider Family Medicine; Visit Provider Family Medicine
DX: S42.009A Fracture of unspecified part of unspecified clavicle, initial encounter for closed fracture (principal); M25.511 Pain in right shoulder; X58.XXXA Exposure to other specified factors, initial encounter
CPT/HCPCS: 73000; 73030

== ENCOUNTER → 2023-09-19 | Outpatient (CLI) | payer MEDICARE, OTHER, SELFPAY ==
--- NOTE | 2023-09-19 09:10 | RAD_ITS ---
PROCEDURE: Fluoroscopic guided right shoulder Injection DATE: September 19, 2023. INDICATION: Female, 83 years old. Chronic right shoulder pain. PHYSICIAN: Magdy Santiago M.D. MEDICATIONS: 12 mg of betamethasone and 4 cc of 1% lidocaine. 2% lidocaine administered subcutaneously for local anesthesia. ACCESS SITE: Right shoulder. NEEDLE: 22-gauge spinal needle. FLUOROSCOPY TIME (if supplied): (0:59) minutes/seconds. 5.7 mGy One image was submitted. FINDINGS: The risks, benefits, and alternatives to the procedure were explained to the patient. The specific risks of bleeding, infection, and neurovascular injury were detailed and accepted. Witnessed informed consent was obtained. A the needle was positioned under radiographic fluoroscopic localization. Approximately 2 cc of Isovue-300 instilled for localization purposes. Medication was then injected. The patient tolerated the procedure well without any immediate complications. RAD/Inj/Asp Xavi Jt Should/Hip/Knee IMPRESSION: 1. Successful fluoroscopic guided hip injection. Electronically Signed: Magdy Santiago MD at 10:32 EDT ,
[2023-09-19] MEDS: Lidocaine 2% (5ml sdv) 5 ML VIAL.MPF INFILT (09:40)
== END | disposition home or self-care (01) ==
LOC: RAD 08:56
PROVIDERS: PCP Family Medicine; Visit Provider Specialist
DX: M19.011 Primary osteoarthritis, right shoulder (principal); G89.29 Other chronic pain
CPT/HCPCS: 20610; 77002; Q9967; J0702

== ENCOUNTER → 2023-10-02 | Outpatient (CLI) | payer MEDICARE, OTHER, SELFPAY ==
--- NOTE | 2023-10-02 14:55 | VDLE_ITS ---
Reason For Study: BLE Edema RIGHT LEFT GSV is normal. GSV is normal. CFV is compressible, spontaneous, phasic, CFV is compressible, spontaneous, phasic, competent and demonstrates normal competent, and demonstrates normal augmentation. augmentation. FV is compressible, spontaneous, phasic, FV is compressible, spontaneous, phasic, competent and demonstrates normal competent and demonstrates normal augmentation. augmentation. POP V is compressible, spontaneous, phasic, POP V is compressible, spontaneous, phasic, competent and demonstrates normal competent and demonstrates normal augmentation. augmentation. T/P Trunk is compressible. T/P Trunk is compressible. PTV is compressible. PTV is compressible. RT PerV is compressible. LT PerV is compressible. Procedure This is a venous duplex using B-mode, color flow and spectral Doppler. Exam performed in department. The exam was diagnostic. A preliminary report was called and/or faxed to Dr Escalante office. VL/Venous Duplex US - Kody Extrem Interpretation Summary No evidence for acute deep venous thrombosis bilateral lower extremities with p atent and compressible bilateral great saphenous veins. Ordering Physician: Mat Escalante Referring Physician: Mat Escalante Performed By: Maxime Jang RVMaria Luisa
[2023-10-02 16:45] LABS: Anion Gap 5 (5-15); BUN 9 mg/dL (7-18); BUN/Creat Ratio 13.8 RATIO (10-20); Calcium,Total 8.8 mg/dL (8.5-10.1); Chloride 100 mmol/L (98-107); Creatinine, Serum 0.65 mg/dL (0.55-1.02); EST Glomerular Filtration Rate 92 mL/min (>60); Est Glom Filt Rate - Afr Amer 111 mL/min (>60); Glucose 247 mg/dL (74-106); Potassium 3.5 mmol/L (3.5-5.1); Sodium Level 135 mmol/L (136-145)
== END | disposition home or self-care (01) ==
PROVIDERS: PCP Family Medicine; Referring Provider Family Medicine; Visit Provider Family Medicine
DX: R60.0 Localized edema (principal)
CPT/HCPCS: 36415; 80048; 93970

== ENCOUNTER → 2023-10-16 | Outpatient (CLI) | payer MEDICARE, OTHER, SELFPAY ==
--- NOTE | 2023-10-16 11:06 | RAD_ITS ---
STUDY: X-RAY - CERVICAL SPINE REASON FOR EXAM: Female, 83 years old. NECK PAIN TECHNIQUE: 5 view(s) of the cervical spine were obtained. COMPARISON: None FINDINGS: Normal anterior atlantoaxial articulation. Normal odontoid process. Normal cervical lordosis. There is multi-level endplate spondylosis. There is multi-level degenerative disc disease with multilevel disc space narrowing. Normal visualized intervertebral neuroforamina. The soft tissue structures are unremarkable. RAD/Cerv Spine 4 or 5 Views IMPRESSION: Mild degenerative disc disease of the cervical spine. MRI may be useful. Electronically Signed: Harpal Lomeli MD at 9:10 EDT ,
== END | disposition home or self-care (01) ==
LOC: MTRAD 11:04
PROVIDERS: PCP Family Medicine; Referring Provider Anesthesiology Pain Medicine; Visit Provider Anesthesiology Pain Medicine
DX: M54.2 Cervicalgia (principal)
CPT/HCPCS: 72050

== ENCOUNTER 2023-12-08 11:00 | Outpatient (CLI) | payer MEDICARE, SELFPAY ==
--- NOTE | 2023-12-12 12:05 | EKG12_ITS ---
Test Reason : PREOP Blood Pressure : / mmHG Vent. Rate : 061 BPM Atrial Rate : 061 BPM P-R Int : 176 ms QRS Dur : 066 ms QT Int : 392 ms P-R-T Axes : 081 -12 013 degrees QTc Int : 394 ms Normal sinus rhythm Inferior infarct (cited on or before 01-FEB-2023) Abnormal ECG Confirmed by JESSEE العلي, VETO ([id number]), map editor JOEY SANCHEZ ([id number]) on 12/16/2023 10:02:41 AM Referred By: Dirk Keenan Confirmed By:VETO HOOKS MD
[2023-12-12 13:16] LABS: Absolute Lymphocyte Count 1.87 X10^3/uL (0.83-4.51); Absolute Neutrophil Count 3.5 X10^3/uL (2.0-7.7); Basophil# 0.07 X10^3/uL; Basophil% 1.1 % (0-1); Eosinophil# 0.44 X10^3/uL; Eosinophils% 6.9 % (0-5); Hematocrit 36.2 % (37-47); Hemoglobin 11.1 g/dL (12.0-15.0); Lymphocyte # 1.87 X10^3/ul (0.83-4.51); Lymphocyte % 29.3 % (19-41); Mean Corp Hgb Conc 30.7 g/dL (32-36); Mean Corpuscular Hgb 25.8 pg (27.0-32.0); Mean Corpuscular Volume 84.2 fL (81-99); Mean Platelet Vol. 12.3 fl (6.2-12.0); Monocyte# 0.47 X10^3/uL; Monocyte% 7.4 % (0-10); NRBC Flagged by Analyzer 0 % (0-5); Neutrophil # 3.52 X10^3/uL (2.7-7.7); Platelet Count 218 K/mm3 (150-450); RBC Distribution Width CV 13.8 % (11.6-14.6); RBC Distribution Width SD 42.5 fl (35.1-43.9); White Blood Count 6.4 K/mm3 (4.4-11.0)
[2023-12-12 13:35] LABS: Albumin, Serum 3.9 g/dL (3.2-5.0); Anion Gap 6 (5-15); BUN 13 mg/dL (7-18); BUN/Creat Ratio 14.1 RATIO (10-20); Calcium,Total 9.5 mg/dL (8.5-10.1); Chloride 99 mmol/L (98-107); Creatinine, Serum 0.92 mg/dL (0.55-1.02); EST Glomerular Filtration Rate 62 mL/min (>60); Est Glom Filt Rate - Afr Amer 75 mL/min (>60); Glucose 297 mg/dL (74-106); Potassium 4.1 mmol/L (3.5-5.1); Sodium Level 135 mmol/L (136-145)
[2023-12-12 13:42] LABS: Hemoglobin A1c 10.6 % (3.8-5.6)
[2023-12-12 15:44] LABS: Magnesium 1.5 mg/dL (1.6-2.6)
== END 2023-12-08 23:00 | disposition home or self-care (01) ==
LOC: SDC 05-12 21:58
PROVIDERS: Anesthesiology; PCP Family Medicine; Referring Provider Specialist; Visit Provider Specialist
DX: Z01.818 Encounter for other preprocedural examination (principal); E11.9 Type 2 diabetes mellitus without complications; Z79.4 Long term (current) use of insulin
CPT/HCPCS: 36415; 80048; 82040; 83036; 83735; 85025; 87081; 93005

== ENCOUNTER 2023-12-12 12:06 | Outpatient (CLI) | payer MEDICARE, OTHER, SELFPAY ==
--- NOTE | 2023-12-12 12:34 | CT_ITS ---
EXAM: CT RIGHT UPPER EXTREMITY WITHOUT INTRAVENOUS CONTRAST CLINICAL INDICATION: RIGHT SHOULDER PAIN TECHNIQUE: Helically acquired images were obtained of the right upper extremity without intravenous contrast. 2-D reformats were performed by the technologist. CTDIvol = ( 22.66 ) mGy, DLP = ( 475.46 ) mGycm This CT exam was performed using one or more of the following dose reduction techniques: automated exposure control, adjustment of the mA and/or kV according to patient size, and/or use of iterative reconstruction technique. COMPARISON: No relevant prior studies available. FINDINGS: BONES/JOINTS: Severe right glenohumeral joint arthrosis with large subchondral cysts on both sides of the articulation. Anterior pericapsular calcifications of the glenohumeral joint. Intra-articular ossific bodies are also suspected to involve the right glenohumeral joint. No acute fracture. No subluxation. Normal alignment. No sclerotic or destructive changes. SOFT TISSUES: Unremarkable. No soft tissue swelling or gas. No radiopaque foreign body. CT/Extremity Upper without Contra IMPRESSION: 1. Severe glenohumeral joint osteoarthritis, end-stage. 2. Ancillary findings as above. Electronically Signed: Kunal Vanegas MD at 4:51 EDT ,
== END 2023-12-12 23:59 | disposition home or self-care (01) ==
PROVIDERS: PCP Family Medicine; Referring Provider Specialist; Visit Provider Specialist
DX: Z01.818 Encounter for other preprocedural examination (principal); E11.9 Type 2 diabetes mellitus without complications; Z79.4 Long term (current) use of insulin; S42.031K Displaced fracture of lateral end of right clavicle, subsequent encounter for fracture with nonunion; M19.011 Primary osteoarthritis, right shoulder
CPT/HCPCS: 36415; 73200; 80048; 82040; 83036; 83735; 85025; 87081; 93005

== ENCOUNTER → 2023-12-16 | Outpatient (CLI) | payer MEDICARE, SELFPAY ==
[2023-12-16 15:55] LABS: Vitamin B12 478 pg/mL (211-911)
[2023-12-16 16:31] LABS: Ferritin 22 ng/mL (8-252); Iron 114 ug/dL (50-170); Iron Binding Capacity,Total 392 ug/dL (250-450); PERCENT IRON SATURATION 29.1 % (15.0-55.0)
== END | disposition home or self-care (01) ==
PROVIDERS: PCP Family Medicine; Visit Provider Family Medicine
DX: D64.9 Anemia, unspecified (principal)
CPT/HCPCS: 36415; 82607; 82728; 82746; 83540; 83550

== ENCOUNTER → 2024-04-02 | Outpatient (CLI) | payer MEDICARE, OTHER, SELFPAY ==
[2024-04-02 14:09] LABS: Bacteria 0 SEEN /hpf (None Seen); Mucous, Urine 0 SEEN /hpf (<or=2+); Red Blood Cells-Urine 0 SEEN /hpf (0-5); Squamous Epithelial Cells - UA 0 SEEN /hpf (5-10); White Blood Cells 0 SEEN /hpf (0-5)
[2024-04-02 17:40] LABS: Absolute Lymphocyte Count 2.14 X10^3/uL (0.83-4.51); Absolute Neutrophil Count 3.7 X10^3/uL (2.0-7.7); Basophil# 0.06 X10^3/uL; Basophil% 0.9 % (0-1); Eosinophil# 0.21 X10^3/uL; Eosinophils% 3.2 % (0-5); Hematocrit 34.4 % (37-47); Hemoglobin 10.6 g/dL (12.0-15.0); Lymphocyte # 2.14 X10^3/ul (0.83-4.51); Lymphocyte % 32.1 % (19-41); Mean Corp Hgb Conc 30.8 g/dL (32-36); Mean Corpuscular Hgb 26.8 pg (27.0-32.0); Mean Corpuscular Volume 87.1 fL (81-99); Mean Platelet Vol. 11.5 fl (6.2-12.0); Monocyte# 0.59 X10^3/uL; Monocyte% 8.9 % (0-10); NRBC Flagged by Analyzer 0 % (0-5); Neutrophil # 3.65 X10^3/uL (2.7-7.7); Neutrophil % 54.7 % (47-70); Platelet Count 217 K/mm3 (150-450); RBC Distribution Width CV 14.7 % (11.6-14.6); RBC Distribution Width SD 47.5 fl (35.1-43.9); Red Blood Count 3.95 M/mm3 (4.2-5.4); White Blood Count 6.7 K/mm3 (4.4-11.0)
[2024-04-02 18:03] LABS: Vitamin D,25 Hydroxy 28.4 ng/mL
[2024-04-02 18:12] LABS: AST(SGOT) 17 U/L (15-37); Alanine Aminotransfer ALT/SGPT 28 U/L (13-56); Albumin, Serum 3.4 g/dL (3.2-5.0); Alkaline Phosphatase 137 U/L (45-117); Anion Gap 9 (5-15); BUN 13 mg/dL (7-18); BUN/Creat Ratio 18.7 RATIO (10-20); Calcium,Total 8.8 mg/dL (8.5-10.1); Chloride 103 mmol/L (98-107); Cholesterol 139 mg/dL (200); EST Glomerular Filtration Rate 85 mL/min (>60); Est Glom Filt Rate - Afr Amer 103 mL/min (>60); Globulin 3.5 g/dL (2.2-4.2); Glucose 174 mg/dL (74-106); High Density Lipoprotein 65 mg/dL; Potassium 3.8 mmol/L (3.5-5.1); Protein, Total 6.9 g/dL (6.4-8.2); Sodium Level 137 mmol/L (136-145); Triglycerides 124 mg/dL; Very Low Density Lipoprotein 25 mg/dL (5-40)
[2024-04-02 19:10] LABS: Color, Urine Yellow (Yellow); Glucose, Dipstick Normal (Normal); Ketone-Dipstick Negative (Negative); Leukocyte Esterase-Dipstick Negative /ul (Negative); Nitrite-Dipstick Negative (Negative); Occult Blood-Urine Negative /ul (Negative); Protein-Dipstick Negative (Negative); Urine Bilirubin Dipstick Negative (Negative); Urine Clarity Clear (Clear); Urine Urobilinogen Normal (Normal)
[2024-04-02 19:21] LABS: Microalbumin,Random Urine 26.5 mg/L (NO RANGE EST.); Microalbumin:Creatinine Ratio 31.9 mg/g CRE (<30 mg/g CRE)
[2024-04-06 14:00] LABS: Ferritin 12 ng/mL (8-252); Iron 41 ug/dL (50-170); Iron Binding Capacity,Total 420 ug/dL (250-450); PERCENT IRON SATURATION 9.8 % (15.0-55.0)
== END | disposition home or self-care (01) ==
LOC: MFPLAB 14:07
PROVIDERS: PCP Family Medicine; Referring Provider Family Medicine; Visit Provider Family Medicine
DX: D64.9 Anemia, unspecified (principal); E11.69 Type 2 diabetes mellitus with other specified complication; E55.9 Vitamin D deficiency, unspecified
CPT/HCPCS: 36415; 80053; 80061; 81001; 82043; 82306; 82570; 82728; 83540; 83550; 85025

== ENCOUNTER → 2024-05-20 | Outpatient (CLI) | payer MEDICARE, OTHER, SELFPAY ==
[2024-05-20 17:42] LABS: Absolute Lymphocyte Count 3.14 X10^3/uL (0.83-4.51); Absolute Neutrophil Count 3.8 X10^3/uL (2.0-7.7); Basophil# 0.07 X10^3/uL; Basophil% 0.9 % (0-1); Eosinophils% 3.8 % (0-5); Hematocrit 33.9 % (37-47); Hemoglobin 10.9 g/dL (12.0-15.0); Lymphocyte # 3.14 X10^3/ul (0.83-4.51); Lymphocyte % 39.7 % (19-41); Mean Corp Hgb Conc 32.2 g/dL (32-36); Mean Corpuscular Hgb 27.3 pg (27.0-32.0); Mean Platelet Vol. 11.5 fl (6.2-12.0); Monocyte# 0.64 X10^3/uL; Monocyte% 8.1 % (0-10); NRBC Flagged by Analyzer 0 % (0-5); Neutrophil # 3.75 X10^3/uL (2.7-7.7); Neutrophil % 47.4 % (47-70); Platelet Count 227 K/mm3 (150-450); RBC Distribution Width CV 14.6 % (11.6-14.6); RBC Distribution Width SD 44.8 fl (35.1-43.9); Red Blood Count 3.99 M/mm3 (4.2-5.4); White Blood Count 7.9 K/mm3 (4.4-11.0)
[2024-05-20 19:56] LABS: ALB/GLOB Ratio 1.6 RATIO (0.9-2.4); AST(SGOT) 25 U/L (<=31); Alanine Aminotransfer ALT/SGPT 26 U/L (<=34); Albumin, Serum 4.2 g/dL (3.4-4.8); Alkaline Phosphatase 74 U/L (35-104); Anion Gap 11 (5-15); BUN 11 mg/dL (4-19); BUN/Creat Ratio 16.4 RATIO (10-20); Calcium,Total 9.3 mg/dL (7.6-11.0); Carbon Dioxide 25.4 mmol/L (21.0-32.0); Chloride 100 mmol/L (98-108); Creatinine, Serum 0.69 mg/dL (0.70-1.20); EST Glomerular Filtration Rate 85 (>60); Globulin 2.6 g/dL (2.2-4.2); Glucose 143 mg/dL (70-99); Potassium 3.8 mmol/L (3.3-5.1); Protein, Total 6.8 g/dL (5.9-8.4); Sodium Level 136 mmol/L (133-145); Vitamin D,25 Hydroxy 26.9 ng/mL (30-100)
[2024-05-22 12:11] LABS: Ferritin 22 ng/mL (22-378)
[2024-05-22 13:18] LABS: Iron 40 ug/dL (50-170); Iron Binding Capacity,Total 383 ug/dL (250-450); Iron Binding Capacity,Unsat 343 ug/dL (228-428)
== END | disposition home or self-care (01) ==
LOC: MTLAB 15:54
PROVIDERS: PCP Family Medicine; Referring Provider Family Medicine; Visit Provider Family Medicine
DX: D64.9 Anemia, unspecified (principal); E11.8 Type 2 diabetes mellitus with unspecified complications; E55.9 Vitamin D deficiency, unspecified
CPT/HCPCS: 36415; 80053; 82306; 82728; 83540; 83550; 85025

== ENCOUNTER → 2024-05-31 | Outpatient (CLI) | payer MEDICARE, OTHER, SELFPAY ==
[2024-05-31 23:12] LABS: Magnesium 1.7 mg/dL (1.5-2.2)
== END | disposition home or self-care (01) ==
LOC: LAB 13:55
PROVIDERS: Anesthesiology; PCP Family Medicine; Referring Provider Specialist; Visit Provider Specialist
DX: Z01.818 Encounter for other preprocedural examination (principal); E11.69 Type 2 diabetes mellitus with other specified complication; I10 Essential (primary) hypertension
CPT/HCPCS: 36415; 83735; 87081

== ENCOUNTER 2024-06-21 07:10 | Observation (INO) | payer MEDICARE, OTHER, SELFPAY ==
--- NOTE | 2024-05-31 15:17 | PAT.ANESEVAL ---
Pre-Assessment Diagnosis/Proposed Procedure Planned Operative Procedure(s): (R) RIGHT REVERSE TOTAL SHOULDER ARTHROPLASTY, ERAS Anesthesia History Anesthesia History - architecture consultant: Anesthesia History - architecture consultant Hx Hospitalization No 05/31/24 11:07 Any Problems With Anesthesia No 05/31/24 11:07 Cholinesterase deficiency No 05/31/24 11:07 You/Your Family Experience No 05/31/24 11:07 fever (hyperthermia) with Relationship Recent Exposure to Contagious Disease Does patient have nerve No 05/31/24 11:07 stimulator Patient instructed to have device shut off --Does patient have Pacemaker or ICD? When Was Last Pacemaker Check QUESTION #4 FULL TEXT: You/Your Family Experience fever (hyperthermia) with Anesthesia Last Oral Intake Last Oral intake: Last Oral Intake NPO since Meds taken in AM with sips of water? Meds patient instructed to take am of surgery PONV PONV - architecture consultant: PONV - architecture consultant Female Yes 05/31/24 11:07 HX of Motion Sickness Yes 05/31/24 11:07 HX of N/V After Surgery No 05/31/24 11:07 Non-Smoker Yes 05/31/24 11:07 Duration of Surgery greater Yes 05/31/24 11:07 than 60 minutes Number of Risk Factors 4 05/31/24 11:07 PONV Score Severe Risk 05/31/24 11:07 Height & Weight Height & Weight: Anesthesia: Height & Weight Height 5 ft 2 in 03/18/24 08:30 Respiratory Assessment Respiratory Assessment - architecture consultant: Respiratory Tract Infection Hx - architecture consultant Hx Respiratory Tract Infection No 05/31/24 11:07 STOP Sleep Apnea STOP Sleep Apnea - architecture consultant: STOP Sleep Apnea - architecture consultant Hx Hypertension No 05/31/24 11:07 Hx Sleep Apnea No 05/31/24 11:07 CPAP BIPAP Do you snore loudly (louder Yes 05/31/24 11:07 than talking or can be heard Do you often feel tired/ No 05/31/24 11:07 fatigued/ sleepy during daytime? Has anyone observed you stop No 05/31/24 11:07 breathing during sleep? STOP Results Negative 05/31/24 11:07 QUESTION #5 FULL TEXT : Do you snore loudly (louder than talking or can be heard through closed doors)? Tobacco Use History Tobacco Use History - architecture consultant: Tobacco Use History - architecture consultant Tobacco Use Smoking Status Never smoker 05/31/24 11:07 Hx Tobacco Use No 05/31/24 11:07 Years Smoking Packs Smoked per Day Smoking Cessation Date was within the last 15 years Hx Smoking Cessation Date Hx Smoking Cessation Counseling Hematologic Medial History Hematologic Hx - architecture consultant: Hematologic Medical Hx - fermenter wine Hx of Blood Transfusion No 05/31/24 11:07 Hx of Transfusion in last 3 No 05/31/24 11:07 Months Date of Last Transfusion (if within last 3 months) Ever experience any problems No 05/31/24 11:07 with transfusion(s)? Specify any problems Hx of Preganancy in last 3 No 05/31/24 11:07 Months Nurse Filling Out Transfusion JZOLLINGE 05/31/24 11:07 & Questions: Date: 05/31/24 05/31/24 11:07 Time: 11:14 05/31/24 11:07 Patient unable to answer at this time (ie. confused, unrespo /Reproduction History /Reproductive History - architecture consultant: /Reproductive Hx- architecture consultant Hx Now No 05/31/24 11:07 Gestational Age (in weeks): EDC: Hx Hx Para Hx Section SAB No 05/31/24 11:07 [facility] Medical History (Updated 05/31/24 @ 11:07 by Waleska Perez) Blindness of right eye Anemia Gastric reflux Chest pain Wears hearing aid Wears contact lenses Post-menopausal Anxiety History of steroid therapy Thyroid disease Insulin dependent diabetes mellitus Ambulates with cane Arthritis High cholesterol Migraine headache TIA (transient ischemic attack) Syncope Difficulty swallowing Dietary restriction History of diverticulitis Non-smoker History of stress test History of rheumatic fever Tardive dyskinesia Major depressive disorder GERD (gastroesophageal reflux disease) Hypertension Hx of emotional problems Home Medications ?Medication ?Instructions ?Recorded ?Last Taken ?Type aspirin 81 mg tablet,delayed 81 mg PO DAILY 02/28/22 Unknown History release (Adult Aspirin Regimen) atorvastatin 40 mg tablet 40 mg PO DAILY 02/28/22 Unknown History hydrochlorothiazide 12.5 mg tablet 12.5 mg PO DAILY BP 02/28/22 Unknown History timolol maleate 0.5 % eye drops 1 drp ophthalmic (eye) BID 02/28/22 Unknown History lisinopril 20 mg tablet 20 mg PO QDAY 07/10/23 Unknown History cholecalciferol (vitamin D3) 25 25 mcg PO BID 12/08/23 Unknown History mcg (1,000 unit) capsule (Vitamin D3) cinnamon bark 500 mg capsule 1,000 mg PO DAILY 12/08/23 Unknown History (Cinnamon) omeprazole 20 mg capsule,delayed 20 mg PO DAILY 12/08/23 Unknown History release escitalopram oxalate 10 mg tablet 10 mg PO DAILY #90 tabs 03/18/24 Unknown Rx mirtazapine 15 mg tablet 15 mg PO QHS #90 tabs 03/18/24 Unknown Rx deutetrabenazine 18 mg 18 mg PO QDAY #30 tabs 03/31/24 Unknown Rx tablet,extended release 24 hr (Austedo XR) PROTEIN DRINK 05/31/24 Unknown History ferrous sulfate 325 mg (65 mg 325 mg PO BID 05/31/24 Unknown History iron) tablet (Feosol) folic acid 1 mg tablet 1 mg PO DAILY 05/31/24 Unknown History insulin aspart U-100 100 unit/mL subcut 05/31/24 Unknown History (3 mL) subcutaneous pen (Novolog FlexPen U-100 Insulin aspart) insulin glargine 100 unit/mL (3 36 unit subcut DAILY 05/31/24 Unknown History mL) subcutaneous pen (Lantus Solostar U-100 Insulin) oxycodone 5 mg tablet 5 mg PO Q8H PRN PRN pain 05/31/24 Unknown History Allergy/AdvReac Type Severity Reaction Status Date / Time codeine Allergy Rash Verified 05/31/24 10:34 morphine Allergy Rash Verified 05/31/24 10:34 Family History Other Cancer Diabetes Surgical History (Updated 12/08/23 @ 11:26 by Kristi Weldon) History of cornea transplant Hx of left cataract extraction Hx of right cataract extraction History of esophagogastroduodenoscopy (EGD) Hx of colonoscopy History of carpal tunnel surgery of right wrist History of carpal tunnel surgery of left wrist History of knee replacement H/O repair of rotator cuff H/O: hysterectomy H/O thyroidectomy Social History Smoking Status: Never smoker alcohol intake: never substance use type: does not use Audit: Pertinent Findings Pertinent Findings EKG Perinent findings: December 12, 2023. Normal sinus rhythm. Inferior infarct (cited on or before February 01, 2023) Stress test pertinent findings: May 03, 2022. Ejection fraction is 89%. Rest and stress SPECT Cardiolite nuclear imaging demonstrates relatively uniform tracer uptake and myocardial perfusion within normal limits. Recommendation Anesthesia Recommendation Anesthesia recommendation: OPTIMIZED for anesthesia
--- NOTE | 2024-06-14 13:06 | PCM.HP.BLA ---
History and Physical History and Physical Patient Name: Palak Piedra : 1940From:? RUBEN GUTIERREZ PA-C DATE OF PRE-OPERATIVE EXAM: 06/14/2024 DATE OF SURGERY:? 06/21/2024 SCHEDULED PROCEDURE:? Right reverse total shoulder arthroplasty HISTORY OF PRESENT ILLNESS: Preoperative history and physical exam was performed on June 14, 2024.? This is an 84-year-old female who is been having ongoing pain in the right nondominant shoulder for several years.? Her pain can reach 10/10 with activities.? She does feel her daily activities have been significantly impacted due to the pain.? She has difficulty with getting dressed and sleeping due to the pain.? She feels her range of motion has been limited and she is weaker.? Patient cannot recall a specific trauma or injury.? Previous surgery has been discussed in detail with Dr. Dirk Keenan.? Patient denies any numbness and tingling.? She denies past history of surgery on the right shoulder.? She has pain and limited motion with daily hygiene purposes and activities throughout the day.? Difficulty lifting forward and across her body due to the pain.? Patient has received surgical clearance from the primary care provider Dr. Escalante.? Initially patient's A1c was 10.6 and most recent A1c 7.5 in which patient is able to move forward with surgery.? Patient has been in pain management with Dr. Barrera in which she uses Percocet.? Patient has medical history pertinent for hypertension, psoriasis, type 2 diabetes mellitus, tardive dyskinesia, vitamin D deficiency, depression.? Denies past history of DVT or pulmonary embolism.? Denies any chest pain, shortness of breath, fevers chills or recent infections.? After failing conservative measures and discussing all treatment options with Dr. Dirk Keenan, the patient does wish to proceed with a right reverse total shoulder arthroplasty. REVIEW OF SYSTEMS: Review Of Systems: Constitutional: Denies anorexia, change in appetite, fever, difficulty sleeping, weight change. Cardiovasular: Denies chest pain, heart murmur, irregular heartbeat and peripheral vascular disease. Respiratory: Denies asthma, cough, pneumonia, sleep apnea, shortness of breath, tuberculosis and wheezing. Gastrointestinal: Denies constipation, diarrhea, heartburn, nausea, rectal itching, bloody stools and vomiting. Genitourinary: Denies incontinence. Musculoskeletal: Reports gait disturbance, pain, trouble walking and weakness, but denies leg swelling. Skin: Denies Raynaud's, history of shingles and tattoo. Neurological: Denies ambulatory dysfunction, dizziness, numbness/tingling and tremor. Psychiatric: Denies anxiety, depression, insomnia, mental illness and stress. Hematologic/Lymphatic: Denies anemia, bleeding/bruising tendency and past transfusion. Reviewed and updated. PAST MEDICAL HISTORY: Advance Care Plan: Resuscitation, DNR Effective Date: 11/13/2017 Other Directive, P.O.A. Effective Date: 11/13/2017 Other Directive, LIVING WILL Effective Date: 11/13/2017 Past Medical History: Medical Problems: Arthritis, High Blood Pressure Psoriasis - history Diabetes, Tardive Dyskinesia, vitamin D deficiency Blind - right eye Depression Accidents: Fracture - (10/01/2019) RT CLAVICLE FX Surgical Hx: Carpal Tunnel - Right - 2004 AND 2005? [facility] Rotator Cuff - LEFT?? 2004? [facility] Knee Replacement RT - (10/27/2018) DR KEENAN [facility] surgery - (2006) right eye partial thyroidectomy - left side Hysterectomy Anesthesia Complications: Anesthesia Complications - novocaine? - swelling and pain Assistive Devices: Glasses, Contacts - only in right eye Reviewed and updated. SOCIAL HISTORY: Social History: Marital: .Occupation: Retired.Work Status: Retired.Hand Dominance: Left-handed. Personal Habits:? Tobacco Use: Patient has never smoked.Cigarette Use: Never.Smokeless Tobacco: Never Used Smokeless Tobacco.E-Cigarette Use: Never used.Alcohol: Denies use.Drug Use: Denies Use.Enjoy Exercising: Exercises 1-3 X/Week. Reviewed and updated. VITALS: Ht: 61.5 Wt: 151lb Wt k.494 BMI: 28.1 BP: 124/78 Pulse: 78 Resp: 17 T: 98.0 T: 36.7C Pain Level: 6 O2SatR: 97 ALLERGIES: Codeine - Rash, Itchiness Morphine - Itchiness, Anxiety, Rash Vicodin MEDICATIONS: Mupirocin 2 % use qtip and apply inside each nostril twice a day until the day of surgery, Lipitor 40 mg 1 po qday, Quinapril/Hydrochlorothiazide 20-12.5 mg po daily, Aspirin 81 81 mg 1 po qdaily, [place] 6 mg 1po bid, Hydrochlorothiazide 12.5 mg 1 by mouth every day, Lexapro 10 mg 1 by mouth every day, Lisinopril 20 mg 1 by mouth every day, Remeron 30 mg once at night, Oxycodone-Acetaminophen 5-325 mg take 1 tablet by mouth three times daily as needed for pain, Omeprazole 20 mg 1 by mouth every day, Vitamin D 50 mcg (2000 Ut) daily, Eye Drop? twice daily, Lantus Solostar 100 Unit/ML inject 36 unit under skin daily, Novolog Flexpen 100 Unit/ML inject 5 units under the skin with breakfast and 7 units with lunch and dinner, Cinnamon 500 mg daily PRE-OP EXAM: General appearance:NORMAL? Other: Eyes: Conjunctivae and lids: NORMAL? Pupils: ERR Ears, Nose, Mouth, and Throat: NORMAL? Other: Inspection of lips, teeth and gums: NORMAL?? Other: Neck: Examination of neck: no masses noted. Respiratory: Assessment of respiratory effort: NORMAL?? Other: ? Auscultation of lungs: clear to auscultation no wheezes, rhonchi or rales. Cardiovascular:? Auscultation of heart: regular rate and rhythm, positive systolic murmur PHYSICAL EXAMINATION: On exam patient's right shoulder is without erythema or signs of infection.? She has tenderness to palpation diffusely throughout the shoulder.? Range of motion: Active forward elevation 80, internal rotation to gluteus, external rotation 10.? 3+/5 supraspinatus on the right.? Sensation intact to light touch axillary, radial, median, ulnar nerve distribution. IMAGING STUDIES: Previous x-rays of the right shoulder reveal severe stage IV bone on bone glenohumeral osteoarthritis IMPRESSION: 1.? Severe right shoulder glenohumeral osteoarthritis 2.? Hypertension 3.? Type 2 diabetes mellitus: A1c 7.5 4.? Tardive dyskinesia 5.? Psoriasis 6.? Depression 7.? Vitamin D deficiency 8.? Overweight with BMI 28.1 PLAN: Dr. Dirk Keenan did discuss and review with the patient all treatment options including surgical versus nonsurgical options.? I will continue plan established by Dr. Dirk Keenan.? Patient does wish to proceed with the above-stated procedure.? Potential risks, benefits, and complications of the procedure were discussed in detail including but not limited to , infection, nerve and blood vessel damage, persistent pain, numbness, tingling, paresthesias, blood clot, pulmonary embolism, and requirement for possible further surgery.? The patient expressed full understanding and has no further questions for the doctor.? Patient does agree to proceed with the above-stated procedure and has signed the surgery consent form. POST-OP MEDICATION PLAN: Pain Medications: Postoperative pain regimen will be initiated by Dr. Dirk Keenan in the hospital.? Patient is currently in pain contract with Dr. Barrera in which we will manage for the first 6 weeks.? She has been advised not to use that medication postoperatively with medication she will be sent home from the hospital.? Due to her A1c at 7.5 patient will also be placed on doxycycline postoperatively.? Patient was instructed that she is more sensitive to the sunlight and should take appropriate precautions.? Recommend [id number] probiotic while on the antibiotic.? She will continue with our nutrition protocol. DVT Prophylaxis Plan:? Aspirin 81 mg twice daily for 2 weeks postoperatively.? Denies past history of DVT or pulmonary embolism This dictation was created using voice recognition software. Phonetic and/or grammatical errors may exist. ___? I have re-examined the patient.? There are no clinical changes since date of exam. ___? See progress notes for changes. ___? Dictated on admission Date: ? Time: Signature:
[2024-06-21] VITALS (14 sets, daily range): BP systolic 140–191; BP diastolic 51–87; PULSE 66–89; RESP 16–18; TEMP 36.1–36.8; O2SAT 90–99; BMI 26.4
--- NOTE | 2024-06-21 08:12 | PRE.ANES_ITS ---
ASA Classification* ASA Classification ASA Classification: 2 Assessment & Plan Anesthesia* Anesthesia Assessment Anesthesia Assessment: Discussed sedation and/or anesthesia options, risks, benefits, and alternatives with patient/parents/legal guardian/POA. Questions invited. The patient/parents/legal guardian/POA seems to understand and agrees to proceed with anesthesia plan. Reviewed the physical assessment, medical history, allergy history and patient home medications list prior to surgery/procedure/anesthetic and documented any changes. Performed airway and anesthesia risk assessments. Anesthesia Type Anesthesia Type: General and Block Anesthesia Focused Assessment* Airway Assessment Mouth opens: >3 cm Mallampati Score: II Focused Labs Anesthesia Preop lab: CBC WBC 7.9 K/mm3 (4.4-11.0) 05/20/24 15:58 05/20/24 RBC 3.99 M/mm3 (4.2-5.4) L 05/20/24 15:58 05/20/24 Hgb 10.9 g/dL (12.0-15.0) L 05/20/24 15:58 5 Hct 33.9 % (37-47) L 05/20/24 15:58 05/20/24 Plt Count 227 K/mm3 (150-450) 05/20/24 15:58 05/20/24 CHEMISTRY Potassium 3.8 mmol/L (3.3-5.1) 05/20/24 15:58 05/20/24 Sodium 136 mmol/L (133-145) 05/20/24 15:58 05/20/24 Magnesium 1.7 mg/dL (1.5-2.2) 05/31/24 13:59 05/31/24 BUN 11 mg/dL (4-19) 05/20/24 15:58 05/20/24 Creatinine 0.69 mg/dL (0.70-1.20) L 05/20/24 15:58 Glucose 143 mg/dL (70-99) H 05/20/24 15:58 05/20/24 TSH 1.97 uIU/mL (0.358-3.74) 04/19/22 16:27 COAG Pre-Assessment Diagnosis/Proposed Procedure Planned Operative Procedure(s): (R) RIGHT REVERSE TOTAL SHOULDER ARTHROPLASTY, ERAS Anesthesia History 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 When Was Last Pacemaker Check QUESTION #4 FULL TEXT: You/Your Family Experience fever (hyperthermia) with Anesthesia Last Oral Intake Last Oral intake: Last Oral Intake NPO since Meds taken in AM with sips of water? Meds patient instructed to take am of surgery PONV PONV - concrete pile driver operator: PONV - concrete pile driver operator Female Yes 05/31/24 11:07 HX of Motion Sickness Yes 05/31/24 11:07 HX of N/V After Surgery No 05/31/24 11:07 Non-Smoker Yes 05/31/24 11:07 Duration of Surgery greater Yes 05/31/24 11:07 than 60 minutes Number of Risk Factors 4 05/31/24 11:07 PONV Score Severe Risk 05/31/24 11:07 Height & Weight Height & Weight: Anesthesia: Height & Weight Height 5 ft 2 in 06/18/24 09:43 Weight: 68.492 kg 06/18/24 09:43 Respiratory Assessment Respiratory Assessment - concrete pile driver operator: Respiratory Tract Infection Hx - concrete pile driver operator Hx Respiratory Tract Infection No 05/31/24 11:07 STOP Sleep Apnea STOP Sleep Apnea - concrete pile driver operator: STOP Sleep Apnea - concrete pile driver operator Hx Hypertension No 05/31/24 11:07 Hx Sleep Apnea No 05/31/24 11:07 CPAP BIPAP Do you snore loudly (louder Yes 05/31/24 11:07 than talking or can be heard Do you often feel tired/ No 05/31/24 11:07 fatigued/ sleepy during daytime? Has anyone observed you stop No 05/31/24 11:07 breathing during sleep? STOP Results Negative 05/31/24 11:07 QUESTION #5 FULL TEXT : Do you snore loudly (louder than talking or can be heard through closed doors)? 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 Specify any problems Hx of Preganancy in last 3 No 05/31/24 11:07 Months Nurse Filling Out Transfusion JZOLLINGE 05/31/24 11:07 & Questions: Date: 05/31/24 05/31/24 11:07 Time: 11:14 05/31/24 11:07 Patient unable to answer at this time (ie. confused, unrespo /Reproduction History /Reproductive History - concrete pile driver operator: /Reproductive Hx- concrete pile driver operator Hx Now No 05/31/24 11:07 Gestational Age (in weeks): EDC: Hx Hx Para Hx Section SAB No 05/31/24 11:07 Active Medications Active Medications: Current Medications Generic Name Dose Route Start Last Admin Trade Name Freq PRN Reason Stop Dose Admin Acetaminophen 1,000 mg 06/21/24 09:45 Acetaminophen 500 Mg Tablet PO 06/21/24 09:46 X1 ONE Acetaminophen 1,000 mg 06/21/24 14:00 Acetaminophen 500 Mg Tablet PO Q8 [facility] Aspirin 81 mg 06/21/24 10:00 Aspirin 81 Mg Tab.Chew PO BID [facility] Celecoxib 400 mg 06/21/24 09:45 Celecoxib 200 Mg Capsule PO 06/21/24 09:46 X1 ONE Doxycycline Monohydrate 100 mg 06/22/24 13:00 Doxycycline 100 Mg Capsule PO BID [facility] Enteral Nutritional Formula 237 ml 06/21/24 12:00 Ensure Surgery 237 Ml Liquid PO TIDCM [facility] Famotidine 20 mg 06/21/24 10:00 Famotidine 20 Mg Tablet PO DAILY [facility] Gabapentin 600 mg 06/21/24 09:45 Gabapentin 600 Mg Tablet PO 06/21/24 09:46 X1 ONE Hydromorphone HCl 0.2 mg 06/21/24 07:10 Hydromorphone Inj 0.2 Mg/Ml Syringe IV Q4H PRN PRN Pain Score 6-10 Cefazolin Sodium 2 gm/ N/A 20 mls @ 400 mls/hr 06/21/24 09:45 IV 06/21/24 09:47 PREOP ONE Tranexamic Acid 1,000 mg/ 110 mls @ 660 mls/hr 06/21/24 09:45 Sodium Chloride IV 06/21/24 09:54 X1 ONE Tranexamic Acid 1,000 mg/ 110 mls @ 660 mls/hr 06/21/24 09:45 Sodium Chloride IV 06/21/24 09:54 X1 ONE Lactated Ringer's 1,000 mls @ 75 mls/hr 06/21/24 09:45 IV 06/21/24 23:04 .[id number] ALEJANDRA Magnesium Sulfate 2 gm/ 104 mls @ 208 mls/hr 06/21/24 09:45 Dextrose IV 06/21/24 10:14 X1 ONE Cefazolin Sodium 1 gm in 50 mls @ 150 mls/hr 06/21/24 07:10 IV 06/21/24 15:29 Q8H [facility] Insulin Human Lispro 1 - 6 unit 06/21/24 09:45 Insulin Lispro 100 Unit/Ml Insuln.Pen SC 06/21/24 18:00 Q4H PRN PRN BG>/= 180, SEE PROTOCOL Protocol Ketorolac Tromethamine 15 mg 06/21/24 07:10 Ketorolac 15 Mg/Ml Vial IV 06/22/24 07:12 Q6H PRN PRN Pain Score 1-10 Meloxicam 7.5 mg 06/23/24 10:00 Meloxicam 7.5 Mg Tablet PO BID [facility] Ondansetron HCl 4 mg 06/21/24 07:10 Ondansetron 4 Mg/2 Ml Vial IV Q6H PRN PRN NAUSEA/VOMITING Oxycodone HCl 5 - 10 mg 06/21/24 07:10 Oxycodone 5 Mg Tablet PO Q4H PRN PRN Pain Score 4-10 Promethazine HCl 12.5 mg 06/21/24 07:10 Promethazine 25 Mg Tablet PO Q6H PRN PRN NAUSEA/VOMITING Promethazine HCl 12.5 mg 06/21/24 07:10 Promethazine 25 Mg/Ml Syringe IM Q6H PRN PRN NAUSEA/VOMITING Senna/Docusate Sodium 2 tablet 06/21/24 10:00 Senna/Docusate Sodium 1 Tablet PO BID ALEJANDRA Sodium Chloride 10 - 40 ml 06/21/24 09:45 0.9% Nacl Peripheral Flush Adult IV UD PRN SALINE FLUSH PFSH Medical History Blindness of right eye Anemia Gastric reflux Chest pain Wears hearing aid Wears contact lenses Post-menopausal Anxiety History of steroid therapy Thyroid disease Insulin dependent diabetes mellitus Ambulates with cane Arthritis High cholesterol Migraine headache TIA (transient ischemic attack) Syncope Difficulty swallowing Dietary restriction History of diverticulitis Non-smoker History of stress test History of rheumatic fever Tardive dyskinesia Major depressive disorder GERD (gastroesophageal reflux disease) Hypertension Hx of emotional problems Home Medications ?Medication ?Instructions ?Recorded ?Last Taken ?Type aspirin 81 mg tablet,delayed 81 mg PO DAILY 02/28/22 U nknown History release (Adult Aspirin Regimen) atorvastatin 40 mg tablet 40 mg PO DAILY 02/28/22 Unkn own History hydrochlorothiazide 12.5 mg tablet 12.5 mg PO DAILY BP 02/28/22 Unknown History timolol maleate 0.5 % eye drops 1 drp ophthalmic (eye) BID 02/28/22 Unknown History lisinopril 20 mg tablet 20 mg PO QDAY 07/10/23 Unkno wn History cholecalciferol (vitamin D3) 25 25 mcg PO BID 12/08/23 Unknown History mcg (1,000 unit) capsule (Vitamin D3) cinnamon bark 500 mg capsule 1,000 mg PO DAILY 4 Unknown History (Cinnamon) omeprazole 20 mg capsule,delayed 20 mg PO DAILY Unknown History release PROTEIN DRINK 05/31/24 Unknown History ferrous sulfate 325 mg (65 mg 325 mg PO BID 05/31/24 U nknown History iron) tablet (Feosol) folic acid 1 mg tablet 1 mg PO DAILY 05/31/24 Unkno wn History insulin aspart U-100 100 unit/mL subcut 05/31/24 Unkno wn History (3 mL) subcutaneous pen (Novolog FlexPen U-100 Insulin aspart) insulin glargine 100 unit/mL (3 36 unit subcut DAILY 0 05/31/24 Unknown History mL) subcutaneous pen (Lantus Solostar U-100 Insulin) oxycodone 5 mg tablet 5 mg PO Q8H PRN PRN pain Unknown History deutetrabenazine 18 mg 18 mg PO QDAY #90 tabs 06/14 Unknown Rx tablet,extended release 24 hr (Austedo XR) escitalopram oxalate 10 mg tablet 10 mg PO DAILY #90 t abs 06/14/24 Unknown Rx mirtazapine 15 mg tablet 15 mg PO QHS #90 tabs Unknown Rx Allergy/AdvReac Type Severity Reaction Status Date / Time codeine Allergy Rash Verified 05/31/24 10:34 morphine Allergy Rash Verified 05/31/24 10:34 Family History Other Cancer Diabetes Surgical History History of cornea transplant Hx of left cataract extraction Hx of right cataract extraction History of esophagogastroduodenoscopy (EGD) Hx of colonoscopy History of carpal tunnel surgery of right wrist History of carpal tunnel surgery of left wrist History of knee replacement H/O repair of rotator cuff H/O: hysterectomy H/O thyroidectomy Social History Smoking Status: Never smoker alcohol intake: never substance use type: does not use Review of Systems (Anesthesia) ROS Narrative System reviewed and no additional complaints, except as documented.
[2024-06-21] MEDS: Magnesium 2 GM for ERAS IV (08:48)
[2024-06-21] MEDS: Vancomycin IV 1,000 MG/200 ML BAG 200 MG IV (08:48)
[2024-06-21] MEDS: Celecoxib 200 MG Capsule 400 MG PO (08:49)
[2024-06-21] MEDS: Acetaminophen 500 MG Tablet 1000 MG PO ×3 (08:49→21:44)
[2024-06-21] MEDS: Gabapentin 600 MG Tablet PO (08:49)
[2024-06-21] MEDS: Insulin Lispro 100 UNIT/ML INSULN.PEN SC (08:50)
[2024-06-21] MEDS: Lactated Ringers 1,000 ML 75 ML IV ×2 (08:51→12:13)
[2024-06-21 08:58] LABS: Bedside Glucose 332 mg/dL (74-106)
[2024-06-21] MEDS: Cefazolin 2 GM in Syringe 10 ML IV (09:42)
--- NOTE | 2024-06-21 09:45 | SHO_PTH ---
PATIENT: Jose SAMPSON LOC: [facility] U#:[id number] AGE/SX: 84/F ROOM: [facility]310 RE06/21/[address]: Dr. Dirk Keenan MD : 1940 BED: 1 DIS: 06/23/2024 SPEC #: [id number] RECD: 06/21/24 13:57 STATUS: TAVIA WALLER #: [id number] PRAVEEN: 06/21/24 09:[address]: Dirk Keenan DEPT: SURGICAL PATHOLOGY RECD BY: Maurice Long ENTERED: 06/21/24 14:06 SP TYPE: HUMERUS OTHR DR: MD Dr. Sylvain Ramirez MD Tissues: A - Humerus, NOS Procedures: Decalcification bone/plaque Surgery Specimen Level III HEADER OPERATION: ERAS, right reverse total shoulder arthroplasty PRE-OP DIAGNOSIS: Severe right shoulder glenohumeral osteoarthritis TISSUE SUBMITTED: A- Right humeral head MICROSCOPIC DIAGNOSIS A. Right humeral head, total shoulder arthroplasty: * Articular bone with reactive/degenerative changes. * Focal trilineage hematopoiesis. MICROSCOPIC DESCRIPTION Slides are reviewed. GROSS DESCRIPTION A. Received in formalin in a container labeled with the patient's name, date of , and right humeral head is a firm and semispherical 4.5 x 4.3 x 1.5 cm humeral head. The resection margin is smooth and firm and the cortical surface is pitted and granular with smooth eburnation. Sectioning reveals firm, red-hunter surfaces. Belt Operator sections are submitted in A1 following decalcification. [facility] 06-21-2024 CPT:49439,06007
[2024-06-21] MEDS: TXA 1000mg in NS100 100ml (IVPB at Incision) 660 MG IV (09:54)
[2024-06-21] MEDS: TXA 1000mg in NS100 100ml (IVPB at Closure) 660 MG IV (10:34)
--- NOTE | 2024-06-21 10:34 | PCM.OPRPT ---
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 They were important in appropriate retraction during the case, and protectio) Additional speech correction assistant?: Yes Additional Card Placer #2: Rhina Aguayo Tasks completed by speech correction assistant #2: Other (Positioning, opening) Additional speech correction assistant?: No Type of Anesthesia: General RN Documented Start/Stop Times: Operation Date: 06/21/24 09:45 Case Time Into Pre-Op 06/21/24 07:56 Out of Pre-Op 06/21/24 09:19 Anesthesia Start 06/21/24 09:20 Into Room 06/21/24 09:20 Procedure Start 06/21/24 09:52 Procedure End 06/21/24 10:58 Anesthesia End 06/21/24 11:04 Out of Room 06/21/24 11:04 Into Recovery 06/21/24 11:06 Procedure Start Time: 09:52 Procedure Stop Time: 10:58 Select all DRAINS/GRAFTS/IMPLANTS that apply: Prosthetic device Prosthetic device details: See body of operative report Special Medications: 2 g Ancef, 1 g TXA at incision, 1 g TXA closure, 10 mg Decadron, joint cocktail (5 mg Duramorph, 30 mL of 0.5% Ropivicaine, 1000 units of epinephrine, 30 mg of Toradol) Estimated Blood Loss: Bony cuts Fluids Replaced: 600 mm crystalloid Specimen collected: Yes Description of specimen(s) removed: Bony cuts Description of surgery: Components used 1. Tornier perform 25 mm glenoid baseplate 2. Tornier perform 36 mm, 0mm Glenosphere 3. Tornier perform 36mm, 0mm humeral liner retentive 4. 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 Patient failed conservative measures as mentioned in the H&P. After discussion of risk and benefits of reverse total shoulder replacement including but not limited to blood loss, DVTs, PEs, nerve vessel damage, infection, general risk of anesthesia including loss of life, instability and stiffness patient demonstrating understanding wish to proceed was able to sign informed consent. Medical clearance was obtained. Procedure: On the date of the procedure, patient's R upper extremity was marked in the preoperative area. Patient was taken back to the operating room where they were placed on the table in the supine position. Anesthesia assumed control of the C-spine and airway, then administered anesthetic. All bony prominences were identified well-padded, the head was secured and the patient was placed in the beachchair position at about 35? inclination. Anesthesia remained in control of the C-spine airway throughout the remainder of the procedure. Patient was then appropriately fastened to the table and the R upper extremity was prepped in a sterile fashion. The surgeons then scrubbed. Upon reentering the room, the R upper extremity was draped in a sterile fashion and the incision was marked out. Timeout was called, everyone agreed upon the side, the site, the procedure to be performed, patient identity and antibiotics given. Incision was taken down through skin and subcutaneous tissue, fat down to fascia. The stripe of the deltopectoral interval and cephalic vein were identified and blunt dissection was used to retract the deltoid. The cephalic vein was retracted laterally. Clavipectoral fascia was then incised and a cobra retractor was placed in the wound. The proximal one third of the pectoralis major insertion was released. Pectoralis tendon insertion was used to tenodesed the biceps tendon which was identified in the bicipital groove. Tenodesis was done with #1 Vicryl. Proximally we followed the biceps tendon after transecting it into the rotator interval. The rotator interval was split and the arm was externally rotated. The split was 1 cm medial to the bicipital groove. Subscapularis tendon was released. We released down the anterior portion of the humeral head and a lira elevator was used to release the inferior portion of the humeral head. The arm was externally rotated and the shoulder was dislocated. The humeral head was then cut at its natural retroversion. Once his humeral head cut was made humerus was retracted out of the way and the glenoid was exposed. After exposing the glenoid, the labrum and the remaining proximal biceps were debrided. At this time we are able to view the entire outer edge of the glenoid. A central pin was placed we sequentially reamed over this central pin to 25mm. Once this was completed the central screw was measured and found to be. The glenoid baseplate was screwed into place. Wound was closely irrigated out with normal saline we then drilled sequentially for 2 screws. Screws were placed superiorly and inferiorly and tightened down the screws. Once the screws were appropriately tightened into place the glenoid baseplate was compressed against the exposed subchondral bone. A 36mm glenosphere was impacted into place engaging the Brennan taper and tightening the central screw. Attention was then turned towards the humerus. The humerus was again externally rotated exposing the proximal portion of the humerus. Central canal finder was then used to open up the canal. We reamed to a 2 reamer. We then broached to a 2 stem. We trialed the 0mm liner. We obtained an adequate reduction at this time with a nice stable shoulder. Good internal rotation to the gluteus, forward elevation to 140?, external rotation to 20?. Final components were then assembled on the back table, trials were removed and the wound was copiously irrigated with normal saline after dislocating the shoulder. Once the final components were assembled they were impacted into place. Shoulder was then reduced and found to be stable with good range of motion. Subscapularis tendon was repaired using #2 FiberWire. The wound was with chlorhexidine solution then copiously irrigated out with a 1 L normal saline lavage. The deltopectoral fascia was then closed using #1 Vicryl skin was closed using 2-0 Vicryl interrupted sutures and final skin closure was done with 3-0 Monocryl. Steri-Strips are placed for final skin closure. Sterile dressing was placed patient was then placed in a sling and awakened by anesthesia. Patient was then transferred to the PACU for recovery. Postoperative plan: Patient will be admitted to the hospital overnight. They will get physical therapy starting in 2 weeks with normal postoperative regimen. Patient will be placed on aspirin 81 mg p.o. twice dailyfor DVT prophylaxis. The first postoperative appointment will be in 2 weeks for wound check and initiation of phase 1 physical therapy. Patient was placed on doxycycline 1 mg p.o. twice daily for 2 weeks postoperatively due to increased risk associated with elevated hemoglobin A1c and positive staph screening During the course of the procedure the physician speech correction assistant played a vital role. His intimate knowledge of my steps in the procedure aided in safe and expedient completion of the procedure. The PA played a vital rolls in positioning particularly in obtaining the appropriate beach chair position and securing the patient's body and head to the table. The PA was also vital in the retraction of soft tissues during the exposure and especially the glenoid work as this is a vital part of the procedure to prevent neurovascular damage. the PA was also vital and protecting soft tissues during times of bony cuts and reaming. He also played a vital role in closure with my direct supervision. The PA was also important during reduction and dislocation of the joint and trials intraoperatively. Surgical Findings: Stable shoulder. Stage IV osteoarthritis Complications Complications: No Admit VTE Documentation VTE Present on Admission: No VTE Mechan Device Prophylaxis: SCD's and Knee High BRITTANY Hose VTE Pharm Prophylaxis ordered?: Yes
[2024-06-21 11:07] LABS: Bedside Glucose 295 mg/dL (74-106)
--- NOTE | 2024-06-21 11:12 | PCM.POST.ANE ---
Anesthesia: Postop Eval I Current Vital Signs Temperature: 97.9 F Pulse Rate: 69 Blood Pressure: 155/54 Respiratory Rate: 16 Pulse Ox: 90 Oxygen Delivery Method: Room Air Assessment Airway patent: Yes Spontaneous unlabored respirations: Yes Mental status: Awake nausea: No Vomiting: No Anesthesia Complication: No Fluid Hydration Crystalloid volume administer (ml): 800 Total IV fluid infused: 800 Progress Note Anesthesia document: Postop Eval 1 completed: Yes
--- NOTE | 2024-06-21 11:31 | RAD_ITS ---
PROCEDURE: SHOULDER MIN 2 VIEWS 06/21/2024 REASON FOR EXAM: POST-OP TECHNIQUE: 2 view(s) of the left shoulder COMPARISON: None FINDINGS: Bones: Old distal clavicle fracture. No acute fracture or dislocation. Joints: Reverse shoulder arthroplasty appears aligned. Soft tissues: No unexpected radiopaque foreign body. RAD/Shoulder min 2 Views IMPRESSION: Expected postoperative appearance of reverse shoulder arthroplasty. Reading Location: [facility]
[2024-06-21 11:35] LABS: Bedside Glucose 253 mg/dL (74-106)
--- NOTE | 2024-06-21 11:46 | POSTOPAN2_ITS ---
Anesthesia Postop Eval I Sum Postop Eval Completion status Anesthesia document: Postop Eval 1 completed: Yes Anesthesia Postop Eval I Summary Anesthesia Postop Eval I Summary: Anesthesia Postop Eval I: Assessment Summary Airway patent Yes 06/21/24 11:13 OUTSIDE MACHINIST SUPERVISOR.JDEF Spontaneous unlabored Yes 06/21/24 11:13 OUTSIDE MACHINIST SUPERVISOR.JDEF respirations Mental status Awake 06/21/24 11:13 OUTSIDE MACHINIST SUPERVISOR.JDEF nausea No 06/21/24 11:13 OUTSIDE MACHINIST SUPERVISOR.JDEF Vomiting No 06/21/24 11:13 OUTSIDE MACHINIST SUPERVISOR.JDEF Anesthesia Postop Eval I: Fluid Summary Crystalloid volume administer 800 06/21/24 11:13 OUTSIDE MACHINIST SUPERVISOR.JDEF (ml) Colloids volume administered ( ml) Blood Product volume administered (ml) Total IV fluid infused 800 06/21/24 11:13 OUTSIDE MACHINIST SUPERVISOR.JDEF Anesthesia Postop Eval I: Summary Notes Anesthesia Complication No 06/21/24 11:13 OUTSIDE MACHINIST SUPERVISOR.JDEF Anesthesia Complication Comment: Post-operative progress note Anesthesia: Postop Eval II Evaluation Mental status: Awake Pain Level: 2 nausea: No Vomiting: No
--- NOTE | 2024-06-21 11:46 | PCM.POSTANE2 ---
Anesthesia Postop Eval I Sum Postop Eval Completion status Anesthesia document: Postop Eval 1 completed: Yes Anesthesia Postop Eval I Summary Anesthesia Postop Eval I Summary: Anesthesia Postop Eval I: Assessment Summary Airway patent Yes 06/21/24 11:13 SUSTAINABLE PRODUCTS MARKETING MANAGER.JDEF Spontaneous unlabored Yes 06/21/24 11:13 SUSTAINABLE PRODUCTS MARKETING MANAGER.JDEF respirations Mental status Awake 06/21/24 11:13 SUSTAINABLE PRODUCTS MARKETING MANAGER.JDEF nausea No 06/21/24 11:13 SUSTAINABLE PRODUCTS MARKETING MANAGER.JDEF Vomiting No 06/21/24 11:13 SUSTAINABLE PRODUCTS MARKETING MANAGER.JDEF Anesthesia Postop Eval I: Fluid Summary Crystalloid volume administer 800 06/21/24 11:13 SUSTAINABLE PRODUCTS MARKETING MANAGER.JDEF (ml) Colloids volume administered ( ml) Blood Product volume administered (ml) Total IV fluid infused 800 06/21/24 11:13 SUSTAINABLE PRODUCTS MARKETING MANAGER.JDEF Anesthesia Postop Eval I: Summary Notes Anesthesia Complication No 06/21/24 11:13 SUSTAINABLE PRODUCTS MARKETING MANAGER.JDEF Anesthesia Complication Comment: Post-operative progress note Anesthesia: Postop Eval II Evaluation Mental status: Awake Pain Level: 2 nausea: No Vomiting: No
--- NOTE | 2024-06-21 12:56 | PCM.PN.HOSP ---
Subjective Subjective 84-year-old female presents to the hospital for an elective right total shoulder replacement. No changes in her home medications. Should be able to wean oxygen shortly Objective Data Objective Data Vital Signs: Vital Signs Temp Pulse Resp BP Pulse Ox O2 Del Method O2 Flow Rate 97 F L 70 16 164/60 H 98 Nasal Cannula 4 06/21/24 12:00 06/21/24 12:00 06/21/24 12:00 06/21/24 12:00 06/21/24 12:00 06/21/24 12:00 06/21/24 12:00 Oxygen Flow Rate (L/min) 4 Oxygen Delivery Method Nasal Cannula Weight: 154 lb 1.65 oz Body Mass Index (BMI) 26.4 Intake & Output: Intake and Output for Last 24 Hours 06/20/24 06/21/24 06/22/24 03:59 03:59 03:59 Intake Total 1344 / 1344 Balance 1344 / 1344 Lab / Micro Data Labs: Laboratory Results - last 24 hr 06/21/24 08:28: POC Glucose 332 H 06/21/24 09:33: POC Glucose 295 H 06/21/24 11:18: POC Glucose 253 H Radiography Diagnostic Testing: Radiology Impression Shoulder X-Ray 06/21/24 11:31 IMPRESSION: Expected postoperative appearance of reverse shoulder arthroplasty. Reading Location: [facility], [facility] Physical Exam Narrative General: Alert, Oriented x3, Cooperative, No apparent distress HEENT: Atraumatic, PERRLA, EOMI, Normocephalic Oral: Moist Mucosa Neck: Supple, No JVD Lungs: Diminished, Normal air movement, No rhonchi, No wheeze, No rales Cardiovascular: Regular rate, Regular Rhythm, Normal S1, Normal S2, No murmurs Abdomen: Soft, Non Tender, Non-Distended, No Hepato-splenomegaly Extremities: No edema, Capillary Refill Less than 3 Seconds Skin: Dressing CDI Musculoskeletal: Right arm in a sling Neurological: No focal neurological deficits, Motor Exam 5/5 strength throughout, Sensory exam intact to light touch and pain Psych/Mental Status: Normal Affect, Appropriate Assessment & Plan Assessment/Plan (1) Status post reverse total arthroplasty of right shoulder: PLAN: Plan 1. Status post reverse total shoulder arthroplasty on the right 06/21/2024 ? Pain management per primary ? Discharge planning per primary ? DVT prophylaxis per primary ? PT/OT 2. Essential HTN/HLD ? Continue with her Lipitor ? Will recheck a BMP in the morning ? Can likely restart her hydrochlorothiazide and lisinopril in the morning as well ? Will monitor and make adjustments as necessary 3. DM2 ? Continue with insulin ? Accu-Cheks ACHS ? Will monitor and make adjustments as necessary 4. GERD ? Stable ? Continue with PPI 5. Iron deficiency anemia ? I do anticipate a drop in her hemoglobin after surgery ? Continue with her iron replacement DVT: Aspirin twice daily, per primary Charges/Coding Visit Charges Office Visits / Consults: [id number] OV L3 New 30min
[2024-06-21] MEDS: Ondansetron 4 MG/2 ML Vial IV ×2 (15:34→21:43)
[2024-06-21] MEDS: Cefazolin 1 GM/50 ML BAG IV (17:42)
[2024-06-21] MEDS: proMETHazine 25 MG/ML Syringe 12.5 MG IM (18:03)
[2024-06-21] MEDS: oxyCODONE 5 MG Tablet PO (21:43)
[2024-06-21] MEDS: Timolol 0.5% 5ML OPTH.BTL 1 DRP OPHTHALMIC (21:45)
[2024-06-21] MEDS: Senna/Docusate Sodium 1 Tablet 2 TABLET PO (21:46)
[2024-06-21] MEDS: Aspirin 81 MG TAB.CHEW PO (21:47)
[2024-06-21 22:28] LABS: Bedside Glucose 183 mg/dL (74-106)
[2024-06-22 00:48] VITALS: BP 149/52; PULSE 68; RESP 16; TEMP 36.6; O2SAT 97
[2024-06-22] MEDS: Ketorolac 15 MG/ML Vial IV ×2 (00:53→07:18)
[2024-06-22] MEDS: proMETHazine 25 MG Tablet 12.5 MG PO ×2 (00:53→09:08)
[2024-06-22] MEDS: Cefazolin 1 GM/50 ML BAG IV (02:04)
[2024-06-22] MEDS: oxyCODONE 5 MG Tablet PO ×5 (02:11→21:18)
[2024-06-22] MEDS: Acetaminophen 500 MG Tablet 1000 MG PO ×3 (05:44→21:18)
[2024-06-22 05:58] VITALS: BP 136/57; PULSE 70; RESP 16; TEMP 36.9; O2SAT 96
[2024-06-22 07:03] LABS: Hematocrit 32.2 % (37-47); Hemoglobin 10.4 g/dL (12.0-15.0); Mean Corp Hgb Conc 32.3 g/dL (32-36); Mean Corpuscular Hgb 28.3 pg (27.0-32.0); Mean Corpuscular Volume 87.7 fL (81-99); Mean Platelet Vol. 11.8 fl (6.2-12.0); Platelet Count 177 K/mm3 (150-450); RBC Distribution Width CV 16.2 % (11.6-14.6); RBC Distribution Width SD 52.2 fl (35.1-43.9); Red Blood Count 3.67 M/mm3 (4.2-5.4); White Blood Count 9.5 K/mm3 (4.4-11.0)
[2024-06-22] MEDS: Ondansetron 4 MG/2 ML Vial IV (07:13)
[2024-06-22 07:42] LABS: Anion Gap 10 (5-15); BUN 12 mg/dL (4-19); BUN/Creat Ratio 14.8 RATIO (10-20); Calcium,Total 8.9 mg/dL (7.6-11.0); Carbon Dioxide 25.1 mmol/L (21.0-32.0); Chloride 98 mmol/L (98-108); EST Glomerular Filtration Rate 72 (>60); Estimated Creatinine Clearance 49.33 ml/min (50-250); Glucose 180 mg/dL (70-99); Potassium 4.3 mmol/L (3.3-5.1); Sodium Level 133 mmol/L (133-145)
--- NOTE | 2024-06-22 08:22 | PCM.PN.ORT ---
Subjective Subjective Patient appears to be very uncomfortable in bed. Patient states that she is very sick. Patient states that she has been nauseous, dizzy, and vomited. Patient states that her pain is currently a 10 out of 10. Patient states that she has not been up or work with physical therapy. Patient denies any shortness of breath, chest pain, calf pain, fever, chills. Patient states that this time she feels that if she went home she would be too much for her to handle. Patient states that she does still plan to go home once she is able to. Objective Data Objective Data Vital Signs: Vital Signs Temp Pulse Resp BP Pulse Ox O2 Del Method O2 Flow Rate 98.4 F 70 16 136/57 H 96 Room Air 4 06/22/24 05:58 06/22/24 05:58 06/22/24 05:58 06/22/24 05:58 06/22/24 05:58 06/22/24 05:58 06/21/24 12:00 Oxygen Flow Rate (L/min) 4 Oxygen Delivery Method Room Air Weight: 69.9 kg Body Mass Index (BMI) 26.4 Intake & Output: Intake and Output for Last 24 Hours 06/20/24 06/21/24 06/22/24 23:59 23:59 23:59 Intake Total 1714 / 1714 1650 / 1650 Balance 1714 / 1714 1650 / 1650 Lab / Micro Data 06/22/24 06:06 06/22/24 06:06 Labs: Laboratory Results - last 24 hr 06/21/24 08:28: POC Glucose 332 H 06/21/24 09:33: POC Glucose 295 H 06/21/24 11:18: POC Glucose 253 H 06/21/24 22:04: POC Glucose 183 H 06/22/24 06:06: WBC 9.5, RBC 3.67 L, Hgb 10.4 L, Hct 32.2 L, MCV 87.7, MCH 28.3, MCHC 32.3, RDW Std Deviation 52.2 H, RDW Coeff of Dario 16.2 H, Plt Count 177, MPV 11.8, Sodium 133, Potassium 4.3, Chloride 98, Carbon Dioxide 25.1, Anion Gap 10, BUN 12, Creatinine 0.80, Estim Creat Clear Calc 49.33 L, Est GFR (MDRD) Non-Af 72, BUN/Creatinine Ratio 14.8, Glucose 180 H, Calcium 8.9 Radiography Diagnostic Testing: Radiology Impression Shoulder X-Ray 06/21/24 11:31 IMPRESSION: Expected postoperative appearance of reverse shoulder arthroplasty. Reading Location: [facility] Physical Exam Narrative 1. Vital signs are stable and afebrile. 2. Dressing is clean dry and intact. 3. UltraSling has been appropriately fitted. 4. Sensation intact to axillary, radial, median, ulnar nerve distribution. 5. Motor intact patient is able to make okay sign, peace sign, thumbs up. 6. BRITTANY hose in place bilaterally. 7. SCDs in place bilaterally. Const alert, oriented x3 and no apparent distress Assessment & Plan Assessment/Plan (1) Status post reverse total arthroplasty of right shoulder: PLAN: Status post right reverse total shoulder arthroplasty day 1. 1. DVT prophylaxis: Patient will be on aspirin 81 mg twice daily for 2 weeks postoperatively. Patient will wear BRITTANY hose for 2 weeks postoperatively. Denies past history of DVT or pulmonary embolism. 2. Pain medications: Patient is in current pain management contract with Dr. Barrera. He is asked that we manage pain for the first 6 weeks postoperatively. Patient will be on Tylenol 1000 mg every 8 hours taking no more than 3000 mg in 24 hours. Patient will be on meloxicam for 30 days postoperatively. Patient was educated not to take any other anti-inflammatory medications while on meloxicam. Patient will then be taking oxycodone as needed for pain control. OARRS report was reviewed today. The risk of abuse potential for narcotic pain medication was discussed and reviewed. Patient was advised not to drive motor vehicle or operate a vehicle while taking narcotic pain medications. Patient voiced understanding. 3. Constipation: Patient was instructed to take senna as instructed until her first bowel movement to decrease risk of impaction following surgery. Patient was instructed if she has not had a bowel movement in 3 days to call our office. 4. Doxycycline: Patient will be on doxycycline for 2 weeks postoperatively due to an A1c of 7.5. Patient was educated on the risk of sunburn while on doxycycline. Patient voiced understanding. 5. H&H: 10.4/32.2. At this time due to hemoglobin being above 10 this does not require treatment. 6. Physical therapy: Patient is to stay in an UltraSling with no range of motion of the shoulder. Patient will be following reverse total shoulder protocol. Patient will begin physical therapy at 2 weeks postoperatively following 2-week follow-up appointment. 7. Incentive spirometry: Patient was encouraged to use incentive spirometer every hour that they are awake for the first week to decrease risk of postoperative lung infection. 8. Dressings: Patient was educated that she is able to get dressing wet on postop day 1. Patient was educated she can remove dressing on postop day 5 and leave incision open to air if clean dry and intact. 9. Patient is currently on ferrous sulfate and folic acid for history of chronic anemia. 10. Patient is a follow-up for postoperative instructions. 11. Appreciate recommendations from medicine for safe and appropriate discharge. Medicine will be involved to help manage patient. 12. Disposition: At this time I do think patient would benefit from another night stay as she has not yet worked with physical therapy, is severely nauseous, and her pain is not adequately controlled at this time. Patient does state that she has some safety concerns with going home due to being so nauseous. Patient states that she is not sure if her will be able to handle her while still sick. We have medicine on board to help manage her chronic conditions. Patient is to follow-up per postoperative instructions. At this time we will plan to keep the patient overnight for evaluation. Patient was educated to call with any questions, concerns, new problems.
[2024-06-22 09:01] VITALS: BP 125/50; PULSE 70; RESP 17; TEMP 36.8; O2SAT 95
[2024-06-22] MEDS: Escitalopram Oxalate 10 MG Tablet PO (09:10)
[2024-06-22] MEDS: Timolol 0.5% 5ML OPTH.BTL 1 DRP OPHTHALMIC ×2 (09:10→21:20)
[2024-06-22] MEDS: Famotidine 20 MG Tablet PO (09:10)
[2024-06-22] MEDS: Folic Acid 1 MG Tablet PO (09:10)
[2024-06-22] MEDS: Aspirin 81 MG TAB.CHEW PO ×2 (09:10→21:17)
[2024-06-22] MEDS: Senna/Docusate Sodium 1 Tablet 2 TABLET PO ×2 (09:11→21:18)
[2024-06-22] MEDS: Lisinopril 20 MG Tablet PO (09:20)
[2024-06-22] MEDS: hydroCHLOROthiazide 12.5mg 12.5 MG PO (09:21)
--- NOTE | 2024-06-22 10:20 | CASEMGMT ---
Met with patient to complete DAMIAN form. DAMIAN form explained to patient who voiced understanding and signed form. Original form placed in pt?s chart and copy provided to patient. Elsie Figueroa, Discharge Planning Asst
--- NOTE | 2024-06-22 11:37 | CASEMGMT ---
EYAL CHASE Assessment: Face to Face with pt for initial transition planning/care coordination assessment. EYAL CHASE introduced self and role at [facility], pt voices understanding and consents to assessment. Pt is A&O x4 and answers all questions appropriately at this time. Pt sitting up in chair with at bedside. Care providers, pharmacy, and demographics verified/updated. Admitting Dx: R reverse total shoulder arthroplasty Strata Score: 2 PCP:Boris Specialists:Ree, ortho; Bruce, pain mgmt; Seese, psych Preferred Pharmacy: [facility] Retail Insurance: [employer] Prescription Benefit: yes LNOK: Sami Piedra, ; Aaron Piedra, son Living Arrangements: Pt lives with in a single story home with 2 steps to enter with a rail. Pt reports prior to surgery she was I in ADLs and assists with meals, does groceries and patient does own laundry. Pt denies concerns at home. Transportation: Pt does not drive. Pt transports pt to medical appts. DME:[employer] with sufficient strips and lancets, sufficient supply of insulin as well as needles, walker, w/c, cane, shower chair HHC/SNF: Pt denies hx of [facility], pt has been to [facility] for a psychiatric stay as well as [facility]. Pt states no concerns with going home at time of dc. She anticipates having therapy in 2 wks at [facility]. Pt states no further concerns/needs. CM to follow. Advised pt to ask CM if any further questions/concerns/needs arise, voices understanding. Pt Goal: Home with plans of outpt therapy when ready Plan: Home with outpt therapy when necessary Teresita BIRCH CM
[2024-06-22] MEDS: Doxycycline 100 MG CAPSULE PO ×2 (12:10→21:18)
[2024-06-22] MEDS: Ferrous Sulfate 325 MG Tablet PO ×2 (12:10→17:48)
[2024-06-22] MEDS: DEUTETRABENAZINE PO (12:23)
[2024-06-22 14:15] VITALS: BP 125/57; PULSE 75; RESP 16; TEMP 36.9; O2SAT 98
[2024-06-22 16:21] LABS: Bedside Glucose 255 mg/dL (74-106)
[2024-06-22] MEDS: Insulin Lispro 100 UNIT/ML INSULN.PEN SC ×2 (17:46→21:19)
[2024-06-22] MEDS: Ensure Surgery 237 ML LIQUID PO (17:48)
[2024-06-22 17:52] VITALS: BP 116/98; PULSE 70; RESP 18; TEMP 37; O2SAT 96
[2024-06-22 20:44] VITALS: BP 145/53; PULSE 73; RESP 16; TEMP 37.2; O2SAT 95
[2024-06-22] MEDS: 0.9% NaCl Peripheral Flush Adult IV (21:20)
[2024-06-22 21:50] LABS: Bedside Glucose 196 mg/dL (74-106)
[2024-06-23 02:45] VITALS: BP 140/54; PULSE 72; RESP 16; TEMP 37.3; O2SAT 96
[2024-06-23] MEDS: oxyCODONE 5 MG Tablet PO ×2 (02:50→10:10)
[2024-06-23] MEDS: Acetaminophen 500 MG Tablet 1000 MG PO (06:33)
[2024-06-23] MEDS: Insulin Lispro 100 UNIT/ML INSULN.PEN SC ×2 (06:33→12:24)
[2024-06-23 06:54] LABS: Bedside Glucose 191 mg/dL (74-106)
[2024-06-23 09:22] LABS: Anion Gap 8 (5-15); BUN 17 mg/dL (4-19); BUN/Creat Ratio 22.8 RATIO (10-20); Calcium,Total 8.8 mg/dL (7.6-11.0); Carbon Dioxide 26.1 mmol/L (21.0-32.0); Chloride 97 mmol/L (98-108); Creatinine, Serum 0.73 mg/dL (0.70-1.20); EST Glomerular Filtration Rate 81 (>60); Estimated Creatinine Clearance 49.33 ml/min (50-250); Glucose 169 mg/dL (70-99); Sodium Level 131 mmol/L (133-145)
[2024-06-23 09:38] VITALS: PULSE 76
[2024-06-23 10:00] VITALS: BP 136/50; PULSE 78; RESP 16; TEMP 36.6; O2SAT 97
[2024-06-23] MEDS: Folic Acid 1 MG Tablet PO (10:01)
[2024-06-23] MEDS: Doxycycline 100 MG CAPSULE PO (10:02)
[2024-06-23] MEDS: Aspirin 81 MG TAB.CHEW PO (10:02)
[2024-06-23] MEDS: hydroCHLOROthiazide 12.5mg 12.5 MG PO (10:02)
[2024-06-23] MEDS: DEUTETRABENAZINE PO (10:02)
[2024-06-23] MEDS: Meloxicam 7.5 MG Tablet PO (10:03)
[2024-06-23] MEDS: Escitalopram Oxalate 10 MG Tablet PO (10:03)
[2024-06-23] MEDS: Famotidine 20 MG Tablet PO (10:03)
[2024-06-23] MEDS: Senna/Docusate Sodium 1 Tablet 2 TABLET PO (10:04)
[2024-06-23] MEDS: Timolol 0.5% 5ML OPTH.BTL 1 DRP OPHTHALMIC (10:04)
[2024-06-23] MEDS: Lisinopril 20 MG Tablet PO (10:05)
--- NOTE | 2024-06-23 10:06 | PCM.PN.ORT ---
Subjective Subjective The patient was sitting in bed upon examination. Patient denies any chest pain, shortness of breath, dizziness, lightheadedness, nausea or vomiting, or calf pain. Pain is controlled on medications. No adverse overnight events. Patient is doing much better today. Yesterday she had significant pain and nausea/vomiting. She has not had a bowel movement yet. Last dose of oxycodone was at 250 this morning. She has been using Tylenol. Patient is ready for discharge home. Objective Data Objective Data Vital signs stable, afebrile Dressing is clean, dry, intact Ultra-sling fitting appropriately Sensation intact to axillary, radial, median, and ulnar distribution Motor intact to AIN, PIN, and ulnar nerve Vital Signs: Vital Signs Temp Pulse Resp BP Pulse Ox O2 Del Method O2 Flow Rate 99.1 F 76 16 140/54 H 96 Room Air 4 06/23/24 02:45 06/23/24 09:38 06/23/24 02:45 06/23/24 02:45 06/23/24 02:45 06/23/24 02:45 06/21/24 12:00 Oxygen Flow Rate (L/min) 4 Oxygen Delivery Method Room Air Weight: 69.9 kg Body Mass Index (BMI) 26.4 Intake & Output: Intake and Output for Last 24 Hours 06/21/24 06/22/24 06/23/24 23:59 23:59 23:59 Intake Total 1714 / 1714 2550 / 2550 Balance 1714 / 1714 2550 / 2550 Lab / Micro Data 06/22/24 06:06 06/23/24 08:44 Labs: Laboratory Results - last 24 hr 06/22/24 15:58: POC Glucose 255 H 06/22/24 21:16: POC Glucose 196 H 06/23/24 06:32: POC Glucose 191 H 06/23/24 08:44: Sodium 131 L, Potassium 4.0, Chloride 97 L, Carbon Dioxide 26.1, Anion Gap 8, BUN 17, Creatinine 0.73, Estim Creat Clear Calc 49.33 L, Est GFR (MDRD) Non-Af 81, BUN/Creatinine Ratio 22.8 H, Glucose 169 H, Calcium 8.8 Assessment & Plan Assessment/Plan (1) Status post reverse total arthroplasty of right shoulder: PLAN: 1. S/P right reverse total shoulder arthroplasty POD #2 2. Continue Pain Medications: Tylenol, meloxicam, and oxycodone. Do not take any other nonsteroidal anti-inflammatories while using meloxicam/Mobic. Patient was getting Percocet from Dr. Barrera preoperatively. She was advised to not combine postoperative medication that we are prescribing. We will manage for the first 6 weeks. Patient did voiced understanding. 3. DVT Prophylaxis: Take 81 mg aspirin twice daily for 2 weeks postoperatively for DVT prophylaxis. Patient denies past history of DVT or pulmonary embolism. 4. PT/OT: Continue with UltraSling at all times except to come out for range of motion exercises of the elbow and pendulum exercise 3 times daily. No range of motion of the postoperative shoulder until outpatient physical therapy begins. Outpatient physical therapy will begin 2 weeks postoperatively after follow-up with [facility] with x-rays and incision check. 5. H & H: Preoperatively patient's hemoglobin was 10.9. She was started on anemia protocol. Postoperatively hemoglobin was stable at 10.4. Patient does have follow-up with her primary care provider next week. We will give her a lab order that she will get done prior to her appointment. I did advise her to continue on the ferrous sulfate and folic acid. Based on her follow-up with her primary care provider and lab work I would defer to the PCP for further management and treatment. She did voice understanding. 6. Currently on doxycycline for 2 weeks postoperatively due to A1c greater than 7.0. I discussed with the patient potential side effects of doxycycline including sensitivity to the sunlight and increased risk of skin burn. Recommend patient take appropriate precautions. Also recommend patient to take probiotic while on the antibiotic. Patient voiced understanding agreement. 7. Encouraged Incentive Spirometry 8. Patient is aware of postoperative constipation that can occur from 1-3 days postoperatively. Will continue with senna 2 tablets twice daily until first bowel movement. Patient was advised if not having a bowel movement after day 3 she is to contact orthopedics so appropriate change can be made. Patient voiced understanding. 9. Continue postoperative medical treatment per medicine 10. Disposition: Patient is doing much better today. She is wishing to go home today. She would like her prescriptions E scribed to [facility] outpatient pharmacy. Patient has follow-up with her primary care provider next week. Lab order will be placed on chart for continued management of her anemia. She will continue on the ferrous sulfate and folic acid. I would defer to the primary care provider for further treatment and management. Patient has outpatient physical therapy established after her 2-week follow-up. She will follow-up per postoperative instructions. Upon discharge she will contact our office with any concerns. Case was discussed with the care management team. I have reviewed the [place] Automated Rx Reporting System (OARRS) report for this patient for refill pattern and other prescriber involvement as part of the appropriate surveillance for the provision of acute and chronic controlled medications. The report was requested and reviewed on the date of this entry and was considered in the prescribing process. This dictation was created using voice recognition software. Phonetic and/or grammatical errors may exist.
[2024-06-23] MEDS: Insulin Glargine-YFGN 100 UNIT/ML Pen 36 UNIT SC (10:11)
--- NOTE | 2024-06-23 10:13 | DCINST_ITS ---
Discharge Instructions Diet Discharge Diet: No restrictions DC O2, CPAP, BIPAP needs Home O2 Discharge instructions: No Dressing / Incision Discharge Activity: May Not Drive (No driving for 6 weeks postoperatively. Must also be off all narcotics and able to walk 100 feet without the use of cane or walker.) May shower in (days): 1 (Dressing must be intact to skin. Turn dressing away from water.) Ice area for (Minutes): 20 (Every 1-2 hours while awake. Please place barrier between skin and ice pack.) Weight Bearing Status: No weight bearing (Postoperative upper extremity) Additional Activity Instructions:: Continue with UltraSling at all times. Please come out of UltraSling 3 times daily working on elbow range of motion and pendulum exercises. No range of motion of postoperative shoulder. Will begin outpatient physical therapy after 2-week scheduled follow-up. Dressing / Incision Call your doctor if your incision/area has: Continuous Slow Oozing, Sudden Increased Bleeding, Increased Pain/ Swelling, Increased Redness and Foul Smelling Discharge Call your doctor if you observe: Fever of 101 or Higher, Shortness of breath, Chest pain and Uncontrolled pain Remove Dressing in: 3 days (Okay to remove dressing on June 26, 2024) Additional Dressing/Incision Instructions:: Follow [facility] Post-op Instructions. Once postoperative dressing has been removed only use gentle soap and water over the incision. Do not use any ointments, Neosporin, salves, alcohol pads over the incision for 6 weeks postoperatively. Do not submerge underwater for 6 weeks postoperatively. Continue ferrous sulfate and folic acid for treatment of the anemia. Follow-up with your primary care provider next week with outpatient lab work. Do NOT use alcohol with narcotic pain medication. Do NOT make important decisions while taking narcotic medication. If you have problems with taking your medication (rash, itching, nausea, etc.) call the office at once. Follow Up Care Test Results: Test results from this visit will be discussed in further detail at your follow- up appointment, if applicable. Discharge Plan Admission Admit Date/Time: 06/21/24 07:10 Attending Provider: Dirk Keenan Primary Care Provider: Mat Escalante Consulting Providers: Sylvain Salamanca Discharge Orders/Prescriptions Prescriptions: New acetaminophen 500 mg Tablet 1,000 mg PO TID 14 Days Qty: 84 0RF Rx Instructions: Do not take more than 3000 mg Tylenol in a 24-hour period. doxycycline monohydrate 100 mg Capsule 100 mg PO BID 12 Days Qty: 24 0RF Rx Instructions: Take for 2 weeks postoperatively aspirin 81 mg Tablet,Chewable 81 mg PO BID 14 Days Qty: 0 0RF Rx Instructions: Take 81 mg aspirin twice daily for 2 weeks postoperatively for DVT prophylaxis. After 2 weeks you can then go back to your normal 81 mg aspirin daily. meloxicam 7.5 mg Tablet 7.5 mg PO BID 30 Days Qty: 60 0RF Rx Instructions: Do not take any other nonsteroidal anti-inflammatories while using meloxicam/Mobic. oxycodone 5 mg Tablet 5 - 10 mg PO Q4H PRN PRN (Reason: As needed for pain) 7 Days Qty: 42 0RF sennosides-docusate sodium [Stimulant Laxative Plus] 8.6-50 mg Tablet 2 tab PO BID 3 Days Qty: 12 0RF Rx Instructions: Take until first bowel movement, then as needed Continued hydrochlorothiazide 12.5 mg tablet 12.5 mg PO DAILY Patient Comments: Take 1 tablet by mouth daily atorvastatin 40 mg tablet 40 mg PO DAILY Patient Comments: TAKE 1 TABLET DAILY timolol maleate 0.5 % drops 1 drp ophthalmic (eye) BID Patient Comments: 1 drop in right eye daily lisinopril 20 mg tablet 20 mg PO QDAY Austedo XR 18 mg tablet extended release 24 hr 18 mg PO QDAY Qty: 90 1RF escitalopram oxalate 10 mg tablet 10 mg PO DAILY Qty: 90 1RF mirtazapine 15 mg tablet 15 mg PO QHS Qty: 90 1RF ferrous sulfate [Feosol] 325 mg (65 mg iron) tablet 325 mg PO BID PROTEIN DRINK Rx Instructions: DAILY UNTIL DAY OF SURGERY insulin glargine [Lantus Solostar U-100 Insulin] 100 unit/mL (3 mL) insulin pen 36 unit subcut DAILY folic acid 1 mg tablet 1 mg PO DAILY insulin aspart U-100 [Novolog FlexPen U-100 Insulin] 100 unit/mL (3 mL) insulin pen SUBCUT Patient Comments: INJECT 5 Units under the skin with breakfast and 7 units with lunch and dinner omeprazole 20 mg capsule,delayed release(DR/EC) 20 mg PO DAILY cinnamon bark [Cinnamon] 500 mg capsule 1,000 mg PO DAILY cholecalciferol (vitamin D3) [Vitamin D3] 25 mcg (1,000 unit) capsule 25 mcg PO BID Discontinued aspirin [Adult Aspirin Regimen] 81 mg tablet,delayed release (DR/EC) 81 mg PO DAILY oxycodone 5 mg tablet 5 mg PO Q8H PRN PRN (Reason: pain) Other Ambulatory Orders: CBC-Complete Blood Cnt No Diff (Routine) Timeframe: 1 Week Facility: [facility] - Location: Laboratory Ordered By: Charly GARAY Magnesium (Routine) Timeframe: 20240601 Facility: [facility] - Location: Laboratory Ordered By: Dr. Wilder Mcgovern MRSA/SAID SCREEN (PRE SURG) (Routine) Timeframe: 20240601 Facility: [facility] - Location: Laboratory Ordered By: Dr. Dirk Keenan Referrals / Follow Up: Physical,Therapy [Other] - 07/05/24 9:30 am Mat Escalante MD [Primary Care Provider] - (follow up in 1 week) Charly Siddiqi PA-C [Med Staff - Adv Practice Prof] - 07/05/24 9:15 am Disposition Disposition (needs filled in before D/C Order can be placed): Home, Self Care
--- NOTE | 2024-06-23 10:25 | DS.PCM_ITS ---
Providers Date of Admission: 06/21/24 Date of Discharge: 06/23/24 Primary Care Physician: Dr. Mat Escalante MD Consultations 06/21/24 07:11 Consult: Hospitalist Routine Consulting Provider: Sylvain Salamanca Reason for Consult: post op med management EMERGENT Consult: No MD Notified: Yes Date Notified: 06/21/24 Time Notified: 12:48 Method of Notification: Text Reason For Visit: RIGHT REVERSE TOTAL SHOULDER ARTHROPLASTY, ERAS Diagnosis Discharge Diagnosis (1) Status post reverse total arthroplasty of right shoulder: Status: Acute Code(s): Z96.611 - Presence of right artificial shoulder joint Plan: 1. S/P right reverse total shoulder arthroplasty POD #2 2. Continue Pain Medications: Tylenol, meloxicam, and oxycodone. Do not take any other nonsteroidal anti-inflammatories while using meloxicam/Mobic. Patient was getting Percocet from Dr. Barrera preoperatively. She was advised to not combine postoperative medication that we are prescribing. We will manage for the first 6 weeks. Patient did voiced understanding. 3. DVT Prophylaxis: Take 81 mg aspirin twice daily for 2 weeks postoperatively for DVT prophylaxis. Patient denies past history of DVT or pulmonary embolism. 4. PT/OT: Continue with UltraSling at all times except to come out for range of motion exercises of the elbow and pendulum exercise 3 times daily. No range of motion of the postoperative shoulder until outpatient physical therapy begins. Outpatient physical therapy will begin 2 weeks postoperatively after follow-up with [facility] with x-rays and incision check. 5. H & H: Preoperatively patient's hemoglobin was 10.9. She was started on anemia protocol. Postoperatively hemoglobin was stable at 10.4. Patient does have follow-up with her primary care provider next week. We will give her a lab order that she will get done prior to her appointment. I did advise her to continue on the ferrous sulfate and folic acid. Based on her follow-up with her primary care provider and lab work I would defer to the PCP for further management and treatment. She did voice understanding. 6. Currently on doxycycline for 2 weeks postoperatively due to A1c greater than 7.0. I discussed with the patient potential side effects of doxycycline including sensitivity to the sunlight and increased risk of skin burn. Recommend patient take appropriate precautions. Also recommend patient to take probiotic while on the antibiotic. Patient voiced understanding agreement. 7. Encouraged Incentive Spirometry 8. Patient is aware of postoperative constipation that can occur from 1-3 days postoperatively. Will continue with senna 2 tablets twice daily until first bowel movement. Patient was advised if not having a bowel movement after day 3 she is to contact orthopedics so appropriate change can be made. Patient voiced understanding. 9. Continue postoperative medical treatment per medicine 10. Disposition: Patient is doing much better today. She is wishing to go home today. She would like her prescriptions E scribed to [facility] outpatient pharmacy. Patient has follow-up with her primary care provider next week. Lab order will be placed on chart for continued management of her anemia. She will continue on the ferrous sulfate and folic acid. I would defer to the primary care provider for further treatment and management. Patient has outpatient physical therapy established after her 2-week follow-up. She will follow-up per postoperative instructions. Upon discharge she will contact our office with any concerns. Case was discussed with the care management team. I have reviewed the [place] Automated Rx Reporting System (OARRS) report for this patient for refill pattern and other prescriber involvement as part of the appropriate surveillance for the provision of acute and chronic controlled medications. The report was requested and reviewed on the date of this entry and was considered in the prescribing process. This dictation was created using voice recognition software. Phonetic and/or grammatical errors may exist. Medications at Discharge Home Medications atorvastatin 40 mg tablet 40 mg PO DAILY 02/28/22 hydrochlorothiazide 12.5 mg tablet 12.5 mg PO DAILY BP 02/28/22 timolol maleate 0.5 % eye drops 1 drp ophthalmic (eye) BID 02/28/22 lisinopril 20 mg tablet 20 mg PO QDAY 07/10/23 cholecalciferol (vitamin D3) 25 mcg (1,000 unit) capsule (Vitamin D3) 25 mcg PO BID 12/08/23 cinnamon bark 500 mg capsule (Cinnamon) 1,000 mg PO DAILY 12/08/23 omeprazole 20 mg capsule,delayed release 20 mg PO DAILY 12/08/23 PROTEIN DRINK 05/31/24 ferrous sulfate 325 mg (65 mg iron) tablet (Feosol) 325 mg PO BID 05/31/24 folic acid 1 mg tablet 1 mg PO DAILY 05/31/24 insulin aspart U-100 100 unit/mL (3 mL) subcutaneous pen (Novolog FlexPen U-100 Insulin aspart) subcut 05/31/24 insulin glargine 100 unit/mL (3 mL) subcutaneous pen (Lantus Solostar U-100 Insulin) 36 unit subcut DAILY 05/31/24 deutetrabenazine 18 mg tablet,extended release 24 hr (Austedo XR) 18 mg PO QDAY #90 tabs 06/14/24 escitalopram oxalate 10 mg tablet 10 mg PO DAILY #90 tabs 06/14/24 mirtazapine 15 mg tablet 15 mg PO QHS #90 tabs 06/14/24 acetaminophen 500 mg tablet 1,000 mg (2 x 500 mg) PO TID 14 days #84 tabs 06/23/24 aspirin 81 mg chewable tablet 81 mg PO BID 14 days #0 tabs 06/23/24 doxycycline monohydrate 100 mg capsule 100 mg PO BID 12 days #24 caps 06/23/24 meloxicam 7.5 mg tablet 7.5 mg PO BID 30 days #60 tabs 06/23/24 oxycodone 5 mg tablet 5 - 10 mg (1 - 2 x 5 mg) PO Q4H PRN PRN As needed for pain 7 days #42 tabs 06/23/24 sennosides 8.6 mg-docusate sodium 50 mg tablet (Stimulant Laxative Plus) 2 tab PO BID 3 days #12 tabs 06/23/24 Hospital Course Operations - (Right reverse total shoulder arthroplasty) Summary of Care Provided Hospital Course: Patient is a 84-year-old female who has been having ongoing pain in the right nondominant shoulder for several years. She has had limited motion and weakness. After failing conservative measures, the patient opted to proceed with a right reverse total shoulder arthroplasty. The patient underwent the above-stated procedure on June 21, 2024. Patient did receive perioperative antibiotics. Intraoperatively was uneventful. For details please see dictated operative note. The patient was placed in thigh-high teds, bilateral SCDs, remained stable in recovery. Patient was admitted to the 3rd floor at [facility]. The patient's pain was managed with the use of IV and p.o. pain medications. Patient participated in physical therapy. Patient was discharged on postoperative day # 2 to home. Patient required an additional night stay due to pain and nausea/vomiting. This did improve and her pain was adequately controlled. Preoperatively patient was found to have an A1c at 7.5. She will be placed on doxycycline for 2 weeks postoperatively in which she has been instructed on potential side effects including hypersensitivity to the sunlight. She should take appropriate precautions. Preoperatively her hemoglobin was 10.9 and she is currently using ferrous sulfate and folic acid. She was stable postoperatively. Patient will follow-up with her primary care provider with outpatient lab work ordered which she will get prior to her PCP appointment. I would defer to the primary care provider for continued management and treatment of her anemia. Patient has been advised not to combine her pain medication from pain management with her postoperative pain medications on discharge. She did voiced understanding. Patient will continue with the senna for constipation. She was advised to contact our office by Friday if she has not had a bowel movement. Patient has been advised to remove the postoperative dressing on June 26, 2024. Patient was given medications stated below. Patient will follow up with [facility] per postop instructions for reassessment. Physical therapy will begin after her 2-week follow-up with orthopedics. Patient does report that she has a follow-up appoint with her primary care provider next week. Lab order will be given on discharge. Physical Exam Narrative Vital signs stable, afebrile Dressing is clean, dry, intact Ultra-sling fitting appropriately Sensation intact to axillary, radial, median, and ulnar distribution Motor intact to AIN, PIN, and ulnar nerve Const alert, oriented x3 and no apparent distress Weight / BMI Weight Weight: 69.9 kg Body Mass Index (BMI) 26.4 ABG / Lab / Microbiology Data 06/22/24 06:06 06/23/24 08:44 Laboratory: Laboratory Results - last 24 hr 06/22/24 15:58: POC Glucose 255 H 06/22/24 21:16: POC Glucose 196 H 06/23/24 06:32: POC Glucose 191 H 06/23/24 08:44: Sodium 131 L, Potassium 4.0, Chloride 97 L, Carbon Dioxide 26.1, Anion Gap 8, BUN 17, Creatinine 0.73, Estim Creat Clear Calc 49.33 L, Est GFR (MDRD) Non-Af 81, BUN/Creatinine Ratio 22.8 H, Glucose 169 H, Calcium 8.8 D/C Instructions Discharge Diet: No restrictions May shower in (days): 1 (Dressing must be intact to skin. Turn dressing away from water.) Ice area for (Minutes): 20 (Every 1-2 hours while awake[address] Please place barrier between skin and ice pack.) Weight Bearing Status: No weight bearing (Postoperative upper extremity) Additional Activity Instructions: Continue with UltraSling at all times. Please come out of UltraSling 3 times daily working on elbow range of motion and pendulum exercises. No range of motion of postoperative shoulder. Will begin outpatient physical therapy after 2-week scheduled follow-up. Call your doctor if your incision/area has: Continuous Slow Oozing, Sudden Increased Bleeding, Increased Pain/ Swelling, Increased Redness and Foul Smelling Discharge Call your doctor if you observe: Fever of 101 or Higher, Shortness of breath, Chest pain and Uncontrolled pain Additional Dressing/Incision Instructions: Follow [facility] Post-op Instructions. Once postoperative dressing has been removed only use gentle soap and water over the incision. Do not use any ointments, Neosporin, salves, alcohol pads over the incision for 6 weeks postoperatively. Do not submerge underwater for 6 weeks postoperatively. Continue ferrous sulfate and folic acid for treatment of the anemia. Follow-up with your primary care provider next week with outpatient lab work. Do NOT use alcohol with narcotic pain medication. Do NOT make important decisions while taking narcotic medication. If you have problems with taking your medication (rash, itching, nausea, etc.) call the office at once. DC O2, CPAP, BIPAP Needs Home O2 Discharge instructions: No Meaningful Use Info Meaningful Use Meaningful Use Diagnoses (Choose all that apply): None applicable Ischemic Stroke Statin Dosing Therapy Reference: STATIN DOSE THERAPY REFERENCE: * Patients > 75 years receive moderate or high dose statin therapy. * Patients 75 years or YOUNGER should receive HIGH intensity statin dose unless contraindicated. You will be required to document reason for non-treatment if statin daily dose does not meet guidelines. HIGH DOSE STATIN THERAPY DAILY Atorvastatin > than or = to 40 mg Rosuvastatin > than or = to 20 mg Amlodipine + Atorvastatin > than or = to 2.5/40 mg Ezetimibe + Simvastatin 10/80 mg Simvastatin 80mg Discharge Plan Admission Admit Date/Time: 06/21/24 07:10 Attending Provider: Dirk Keenan Primary Care Provider: Mat Escalante Consulting Providers: Sylvain Salamanca Discharge Orders/Prescriptions Prescriptions: New acetaminophen 500 mg Tablet 1,000 mg PO TID 14 Days Qty: 84 0RF Rx Instructions: Do not take more than 3000 mg Tylenol in a 24-hour period. doxycycline monohydrate 100 mg Capsule 100 mg PO BID 12 Days Qty: 24 0RF Rx Instructions: Take for 2 weeks postoperatively aspirin 81 mg Tablet,Chewable 81 mg PO BID 14 Days Qty: 0 0RF Rx Instructions: Take 81 mg aspirin twice daily for 2 weeks postoperatively for DVT prophylaxis. After 2 weeks you can then go back to your normal 81 mg aspirin daily. meloxicam 7.5 mg Tablet 7.5 mg PO BID 30 Days Qty: 60 0RF Rx Instructions: Do not take any other nonsteroidal anti-inflammatories while using meloxicam/Mobic. oxycodone 5 mg Tablet 5 - 10 mg PO Q4H PRN PRN (Reason: As needed for pain) 7 Days Qty: 42 0RF sennosides-docusate sodium [Stimulant Laxative Plus] 8.6-50 mg Tablet 2 tab PO BID 3 Days Qty: 12 0RF Rx Instructions: Take until first bowel movement, then as needed Continued hydrochlorothiazide 12.5 mg tablet 12.5 mg PO DAILY Patient Comments: Take 1 tablet by mouth daily atorvastatin 40 mg tablet 40 mg PO DAILY Patient Comments: TAKE 1 TABLET DAILY timolol maleate 0.5 % drops 1 drp ophthalmic (eye) BID Patient Comments: 1 drop in right eye daily lisinopril 20 mg tablet 20 mg PO QDAY Austedo XR 18 mg tablet extended release 24 hr 18 mg PO QDAY Qty: 90 1RF escitalopram oxalate 10 mg tablet 10 mg PO DAILY Qty: 90 1RF mirtazapine 15 mg tablet 15 mg PO QHS Qty: 90 1RF ferrous sulfate [Feosol] 325 mg (65 mg iron) tablet 325 mg PO BID PROTEIN DRINK Rx Instructions: DAILY UNTIL DAY OF SURGERY insulin glargine [Lantus Solostar U-100 Insulin] 100 unit/mL (3 mL) insulin pen 36 unit subcut DAILY folic acid 1 mg tablet 1 mg PO DAILY insulin aspart U-100 [Novolog FlexPen U-100 Insulin] 100 unit/mL (3 mL) insulin pen SUBCUT Patient Comments: INJECT 5 Units under the skin with breakfast and 7 units with lunch and dinner omeprazole 20 mg capsule,delayed release(DR/EC) 20 mg PO DAILY cinnamon bark [Cinnamon] 500 mg capsule 1,000 mg PO DAILY cholecalciferol (vitamin D3) [Vitamin D3] 25 mcg (1,000 unit) capsule 25 mcg PO BID Discontinued aspirin [Adult Aspirin Regimen] 81 mg tablet,delayed release (DR/EC) 81 mg PO DAILY oxycodone 5 mg tablet 5 mg PO Q8H PRN PRN (Reason: pain) Other Ambulatory Orders: CBC-Complete Blood Cnt No Diff (Routine) Timeframe: 1 Week Facility: [facility] - Location: Laboratory Ordered By: Charly GARAY Magnesium (Routine) Timeframe: 20240601 Facility: [facility] - Location: Laboratory Ordered By: Dr. Wilder Mcgovern MRSA/SAID SCREEN (PRE SURG) (Routine) Timeframe: 20240601 Facility: [facility] - Location: Laboratory Ordered By: Dr. Dirk Keenan Referrals / Follow Up: Physical,Therapy [Other] - 07/05/24 9:30 am Mat Escalante MD [Primary Care Provider] - (follow up in 1 week) Charly Siddiqi PA-C [Med Staff - Adv Practice Prof] - 07/05/24 9:15 am Disposition Disposition (needs filled in before D/C Order can be placed): Home, Self Care
--- NOTE | 2024-06-23 10:29 | CASEMGMT ---
TC to 's office, spoke with Carolee, pt does indeed have an appt on 07/01. She is aware to please make a note that states ortho ordered labs prior to appt for anemia post op. Pt is aware of this appt.
--- NOTE | 2024-06-23 10:49 | NURSING ---
walking in hallway w/PT
[2024-06-23 11:54] LABS: Bedside Glucose 188 mg/dL (74-106)
--- NOTE | 2024-06-23 14:28 | PHA.DC.MC.R ---
Pharmacy [facility] has performed discharge medication reconciliation and counseling for this patient. 1. Acetaminophen 1000mg PO Q8 2. Aspirin 81mg PO BID 3. Doxycycline 100mg PO BID x 12 days 4. Meloxicam 7.5mg PO BID 5. Oxycodone 5-10mg PO Q4H PRN pain 6. Senna/docusate 2T PO BID until first BM, then PRN constipation The patient's discharge medication list was reviewed for discrepancies and discrepancies were resolved. The patient was counseled on the following discharge medications and changes in medications for homegoing were reviewed. The Reason for Use, instructions for use, and potential side effects were reviewed for all new medications. The patient's questions regarding all of their medications were answered. The patient was able to verbally demonstrate an understanding of their discharge medications. Patient counseled by pharmacy picking tech, Vasu. Medications at Discharge Home Medications atorvastatin 40 mg tablet 40 mg PO DAILY 02/28/22 hydrochlorothiazide 12.5 mg tablet 12.5 mg PO DAILY BP 02/28/22 timolol maleate 0.5 % eye drops 1 drp ophthalmic (eye) BID 02/28/22 lisinopril 20 mg tablet 20 mg PO QDAY 07/10/23 cholecalciferol (vitamin D3) 25 mcg (1,000 unit) capsule (Vitamin D3) 25 mcg PO BID 12/08/23 cinnamon bark 500 mg capsule (Cinnamon) 1,000 mg PO DAILY 12/08/23 omeprazole 20 mg capsule,delayed release 20 mg PO DAILY 12/08/23 PROTEIN DRINK 05/31/24 ferrous sulfate 325 mg (65 mg iron) tablet (Feosol) 325 mg PO BID 05/31/24 folic acid 1 mg tablet 1 mg PO DAILY 05/31/24 insulin aspart U-100 100 unit/mL (3 mL) subcutaneous pen (Novolog FlexPen U-100 Insulin aspart) subcut 05/31/24 insulin glargine 100 unit/mL (3 mL) subcutaneous pen (Lantus Solostar U-100 Insulin) 36 unit subcut DAILY 05/31/24 deutetrabenazine 18 mg tablet,extended release 24 hr (Austedo XR) 18 mg PO QDAY #90 tabs 06/14/24 escitalopram oxalate 10 mg tablet 10 mg PO DAILY #90 tabs 06/14/24 mirtazapine 15 mg tablet 15 mg PO QHS #90 tabs 06/14/24 acetaminophen 500 mg tablet 1,000 mg (2 x 500 mg) PO TID 14 days #84 tabs 06/23/24 aspirin 81 mg chewable tablet 81 mg PO BID 14 days #0 tabs 06/23/24 doxycycline monohydrate 100 mg capsule 100 mg PO BID 12 days #24 caps 06/23/24 meloxicam 7.5 mg tablet 7.5 mg PO BID 30 days #60 tabs 06/23/24 oxycodone 5 mg tablet 5 - 10 mg (1 - 2 x 5 mg) PO Q4H PRN PRN As needed for pain 7 days #42 tabs 06/23/24 sennosides 8.6 mg-docusate sodium 50 mg tablet (Stimulant Laxative Plus) 2 tab PO BID 3 days #12 tabs 06/23/24
--- NOTE | 2024-06-23 16:12 | NURSING ---
All documentation by [employer] June Watt reviewed by certified nursing assistant instructor Michelle FOSTER, RN.
== END 2024-06-23 13:35 | disposition home or self-care (01) ==
LOC: SDC 13:56 → AC 13:56 → SDC 13:56 → MS3 13:57
PROVIDERS: Admitting Provider Specialist; PCP Family Medicine; Referring Provider Specialist; Visit Provider Specialist
PROC: (CPT 23472; principal; 2024-06-21 09:15)
DX: M19.011 Primary osteoarthritis, right shoulder (principal); E11.9 Type 2 diabetes mellitus without complications; Z79.4 Long term (current) use of insulin; I10 Essential (primary) hypertension; D50.9 Iron deficiency anemia, unspecified; R11.2 Nausea with vomiting, unspecified; E66.3 Overweight; Z68.28 Body mass index [BMI] 28.0-28.9, adult; L40.9 Psoriasis, unspecified; G24.01 Drug induced subacute dyskinesia; E55.9 Vitamin D deficiency, unspecified; Z66 Do not resuscitate; Z79.82 Long term (current) use of aspirin; Z79.899 Other long term (current) drug therapy
CPT/HCPCS: 23472; 64415; 36415; 73030; 80048; 82962; 85027; 88304; 88305; 88311; 94668; 96361; 96365; 96366; 96372; 96375; 96376; 97110; 97116; 97162; 97166; 97530; 97535; 97802; 99221; C1713; C1776; A4216; G0378; J2405

== ENCOUNTER → 2024-07-01 | Outpatient (CLI) | payer MEDICARE, OTHER, SELFPAY ==
[2024-07-01 12:47] LABS: Hematocrit 29.1 % (37-47); Hemoglobin 9.5 g/dL (12.0-15.0); Mean Corp Hgb Conc 32.6 g/dL (32-36); Mean Corpuscular Volume 88.7 fL (81-99); Mean Platelet Vol. 11.2 fl (6.2-12.0); Platelet Count 300 K/mm3 (150-450); RBC Distribution Width CV 16.6 % (11.6-14.6); RBC Distribution Width SD 54.1 fl (35.1-43.9); Red Blood Count 3.28 M/mm3 (4.2-5.4); White Blood Count 15.3 K/mm3 (4.4-11.0)
== END | disposition home or self-care (01) ==
LOC: MTLAB 09:39
PROVIDERS: PCP Family Medicine; Referring Provider Physician Assistant Surgical; Visit Provider Physician Assistant Surgical
DX: D64.9 Anemia, unspecified (principal); Z96.611 Presence of right artificial shoulder joint
CPT/HCPCS: 36415; 85027

== ENCOUNTER 2024-07-15 08:44 | Outpatient (RCR) | payer SELFPAY | END 2024-08-07 23:59 | LOC: NS 08:44 | PROVIDERS: PCP Family Medicine | DX: Z71.3 Dietary counseling and surveillance (principal) ==

== ENCOUNTER → 2024-08-11 | Outpatient (CLI) | payer MEDICARE, OTHER, SELFPAY ==
[2024-08-11 15:48] LABS: Absolute Lymphocyte Count 2.28 X10^3/uL (0.83-4.51); Absolute Neutrophil Count 3.1 X10^3/uL (2.0-7.7); Basophil# 0.08 X10^3/uL; Basophil% 1.2 % (0-1); Eosinophil# 0.47 X10^3/uL; Eosinophils% 7.2 % (0-5); Hematocrit 36.1 % (37-47); Hemoglobin 11.4 g/dL (12.0-15.0); Lymphocyte # 2.28 X10^3/ul (0.83-4.51); Lymphocyte % 34.9 % (19-41); Mean Corp Hgb Conc 31.6 g/dL (32-36); Mean Corpuscular Hgb 28.4 pg (27.0-32.0); Mean Corpuscular Volume 89.8 fL (81-99); Mean Platelet Vol. 11.8 fl (6.2-12.0); Monocyte# 0.56 X10^3/uL; Monocyte% 8.6 % (0-10); NRBC Flagged by Analyzer 0 % (0-5); Neutrophil # 3.14 X10^3/uL (2.7-7.7); Neutrophil % 47.9 % (47-70); Platelet Count 224 K/mm3 (150-450); RBC Distribution Width CV 15.3 % (11.6-14.6); RBC Distribution Width SD 50.9 fl (35.1-43.9); Red Blood Count 4.02 M/mm3 (4.2-5.4); White Blood Count 6.5 K/mm3 (4.4-11.0)
[2024-08-11 16:14] LABS: ALB/GLOB Ratio 1.4 RATIO (0.9-2.4); AST(SGOT) 26 U/L (<=31); Alanine Aminotransfer ALT/SGPT 22 U/L (<=34); Alkaline Phosphatase 77 U/L (35-104); Anion Gap 12 (5-15); BUN 9 mg/dL (4-19); BUN/Creat Ratio 12.2 RATIO (10-20); Calcium,Total 9.5 mg/dL (7.6-11.0); Carbon Dioxide 24.4 mmol/L (21.0-32.0); Chloride 101 mmol/L (98-108); Creatinine, Serum 0.73 mg/dL (0.70-1.20); EST Glomerular Filtration Rate 80 (>60); Globulin 2.8 g/dL (2.2-4.2); Glucose 142 mg/dL (70-99); Magnesium 1.8 mg/dL (1.5-2.2); Potassium 4.1 mmol/L (3.3-5.1); Protein, Total 6.7 g/dL (5.9-8.4); Sodium Level 137 mmol/L (133-145)
--- NOTE | 2024-08-11 17:07 | RAD_ITS ---
PROCEDURE: ACUTE ABDOMEN INC CHEST 08/11/2024 REASON FOR EXAM: DIARRHEA, PAIN TECHNIQUE: Single view chest with supine and upright views of the abdomen. COMPARISON: Portable chest, 02/01/2023. FINDINGS: There is chronic interstitial lung disease. There may be some element of superimposed acute interstitial lung disease. There is no lobar consolidation or pleural effusion. The heart size is normal. There is calcific vascular disease of the thoracic aorta. There is a right shoulder arthroplasty. The bowel gas pattern is nonobstructive. There is stool throughout the colon. There are 2 gallstones identified measuring 2.3 cm and 1.8 cm in diameter, respectively. 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 RAD/Acute Abdomen Inc Chest IMPRESSION: 1. There is chronic interstitial lung disease. Some element of superimposed a cute interstitial lung disease is not excluded. 2. Mild constipation. 3. Cholelithiasis. Reading Location: [id number]
[2024-08-16 14:08] LABS: Pancreatic Elastase, Fecal 743 (>200)
== END | disposition home or self-care (01) ==
PROVIDERS: PCP Family Medicine; Referring Provider Family Medicine; Visit Provider Family Medicine
DX: R19.7 Diarrhea, unspecified (principal); R52 Pain, unspecified
CPT/HCPCS: 36415; 74022; 80053; 82653; 82705; 83630; 83735; 85025; 87177; 87209; 87493

== ENCOUNTER → 2024-08-16 | Outpatient (CLI) | payer MEDICARE, OTHER, SELFPAY ==
[2024-08-18 13:08] LABS: Fats, Neutral Normal (.); Fats, Total Normal (.)
[2024-08-19 07:07] LABS: Pancreatic Elastase, Fecal 455 (>200)
== END | disposition home or self-care (01) ==
LOC: LABSPEC 16:22
PROVIDERS: PCP Family Medicine; Referring Provider Family Medicine; Visit Provider Family Medicine
DX: R19.7 Diarrhea, unspecified (principal)
CPT/HCPCS: 82653; 82705; 87177; 87209

== ENCOUNTER → 2024-09-03 | Outpatient (CLI) | payer MEDICARE, OTHER, SELFPAY ==
--- NOTE | 2024-09-03 10:16 | NM_ITS ---
PROCEDURE: GASTRIC EMPTYING STUDY 09/03/2024 REASON FOR EXAM: DIARRHEA/ABD PAIN COMPARISON: None. TECHNIQUE: The patient ingested a semi-solid meal oatmeal. There was no vomiting postprandially. Anterior and posterior planar images of the upper abdomen were obtained for a total of 60 minutes. Regions of interest were drawn, and a geometric mean was used to calculate a [id number]. Medications taken in the past 24 hours that may affect gastric emptying: None RADIOPHARMACEUTICAL: Technetium 99 M sulfur colloid DOSE 1.2mCi intravenous. FINDINGS: No gastroesophageal reflux was seen during the time of imaging. Linear phase gastric emptying half time of 45.13 minutes. Data half-time of 41.14 minutes Gastric emptying at 17.5 minutes of 26 percent, at 29.5 minutes of 38 percent, at 47.5 minutes of 54 percent, and at 59.5 minutes of 61 percent. NM/Gastric Emptying Study IMPRESSION: Normal semi solid phase gastric emptying. Reading Location: [place] [id number]
--- OUTSIDE RECORDS SUMMARY | 2024-09-03 18:18 | XMS RPT_ITS | CCD ---
Author Organization [facility] Care Team Providers Care Senior [employer] Parach[employer]ist Name Role Phone SHERIDAN NOWAK Attending Unavailable RONAK MCCRARY Primary Care Unavailable SHERIDAN NOWAK Attending Unavailable RONAK MCCRARY Primary Care Unavailable YUMIKO GASCA Admitting Unavailable HARPREET DUBOIS Consulting Unavailable YUMIKO GASCA Attending Unavailable FARIBA ROMERO Consulting Unavailable Yazan Fairbanks Referring Unavailable Yazan Fairbanks Attending Unavailable Ronak Escalante Primary Care Unavailable Ronak Escalante Primary Care Unavailable Sheridan Nowak Referring Unavailable Scooter Reyes Attending Unavailable Ronak Escalante Referring Unavailable Ronak Escalante Primary Care Unavailable Ronak Escalante Attending Unavailable Ronak Escalante Primary Care Unavailable Tanner Neal Referring Unavailable Tanner Neal Attending Unavailable Ronak Escalante Primary Care Unavailable Sheridan Nowak Attending Unavailable Ronak Escalante Referring Unavailable Ronak Escalante Primary Care Unavailable Ronak Escalante Attending Unavailable Ronak Escalante Primary Care Unavailable Charly Gutierrez Referring Unavailable Charly Gutierrez Attending Unavailable Ronak Escalante Referring Unavailable Ronak Escalante Primary Care Unavailable Ronak Escalante Attending Unavailable Ronak Escalante Primary Care Unavailable Ronak Escalante Referring Unavailable Ronak Escalante Attending Unavailable Michael Gotti Consulting Unavailable Ronak Escalante Primary Care Unavailable Sheridan Nowak Referring Unavailable Sheridan Nowak Attending Unavailable Ronak Escalante Primary Care Unavailable Sheridan Nowak Attending Unavailable Sheridan Nowak Referring Unavailable Ronak Escalante Primary Care Unavailable Sylvain Salamanca Consulting Unavailable Sheridan Nowak Admitting Unavailable Sheridan Nowak Referring Unavailable Sheridan Nowak Attending Unavailable Ronak Escalante Referring Unavailable Schdouglas, Ronak E Primary Care Unavailable Schdouglas, Ronak E Attending Unavailable Schinkannan, Ronak E Primary Care Unavailable Schdouglas, Ronak E Referring Unavailable SchRonak cole E Attending Unavailable Schdouglas, Ronak E Primary Care Unavailable Referred, Self Attending Unavailable Schinner, Ronak E Primary Care Unavailable Referred, Self Attending Unavailable Schinkannan, Ronak E Primary Care Unavailable Schdouglas, Ronak E Attending Unavailable Boris, Ronak E Primary Care Unavailable Sheridan Nowak Attending Unavailable Sheridan Nowak Referring Unavailable SchRonak cole Referring Unavailable Schinkannan, Ronak E Primary Care Unavailable Schdouglas, Ronak Garcia Attending Unavailable Boris, Ronak Garcia Primary Care Unavailable Sylvain Salamanca Attending Unavailable Sylvain Salamanca Consulting Unavailable Sheridan Nowak Admitting Unavailable Sheridan Nowak Referring Unavailable Sheridan Nowak Consulting Unavailable Boris, Ronak E Referring Unavailable Schdouglas, Ronak E Primary Care Unavailable Boris, Ronak Garcia Attending Unavailable Boris, Ronak Garcia Primary Care Unavailable Sheridan Woods Attending Unavailable Sheridan Woods Attending Unavailable Boris, Ronak Garcia Primary Care Unavailable Sheridan Woods Attending Unavailable Boris, Ronak Garcia Primary Care Unavailable Sheridan Woods Attending Unavailable Boris, Ronak Garcia Primary Care Unavailable Allergies Allergy Classification Reported Allergen(s) Allergy Type Date of Onset Reaction(s) Facility (1 source) Codeine Drug Allergy 06-21-2024 [facility] Repository (1 source) Morphine Drug Allergy 06-21-2024 [facility] Repository Problems Active Problems Problem Classification Problem Date Documented Da te Episodic/Chronic Deficiency and other anemia (2 sources) Anemia, unspecified; Translations: [Anemia, unspecified] Onset: 04-06-2024 Episodic Diabetes mellitus with complications (2 sources) Type 2 diabetes mellitus with hyperglycemia; Translations: [Type 2 diabetes mellitus with hyperglycemia (HCC)] Onset: 02-18-2023 Chronic Essential hypertension (2 sources) Essential (primary) hypertension; Translations: [Essential (primary) hypertension] Onset: 02-18-2023 Chronic Mood disorders (1 source) Major depressive disorder, single episode, unspecified; Translations: [Major depressive disorder, single episode, unspecified] Onset: 06-14-2024 Chronic Mood disorders (2 sources) Mood disorders; Translations: [Depression, unspecified] Onset: 02-18-2023 Osteoarthritis (1 source) Primary osteoarthritis, right shoulder; Translations: [Primary osteoarthritis, right shoulder] Onset: 07-11-2024 Chronic Other aftercare (2 sources) alf (current) use of insulin; Translations: [lobsterman (current) use of insulin (HCC)] Onset: 02-18-2023 Episodic Other connective tissue disease (1 source) Presence of right artificial shoulder joint; Translations: [Presence of right artificial shoulder joint] Onset: 06-23-2024 Chronic Other gastrointestinal disorders (1 source) Diarrhea, unspecified; Translations: [Diarrhea, unspecified] Onset: 08-19-2024 Episodic Other hereditary and degenerative nervous system conditions (1 source) Drug induced subacute dyskinesia; Translations: [Drug induced subacute dyskinesia] Onset: 06-14-2024 Episodic Other nervous system disorders (2 sources) Other symptoms and signs involving cognitive functions and awareness; Translations: [Other symptoms and signs involving cognitive functions and awareness] Onset: 02-18-2023 Episodic Suicide and intentional self-inflicted injury (2 sources) Suicidal ideations; Translations: [Suicidal ideations] Onset: 02-18-2023 Episodic Past or Other Problems Problem Classification Problem Date Documented Da te Episodic/Chronic Fracture of upper limb (1 source) Fracture of unspecified part of unspecified clavicle, initial encounter for closed fracture; Translations: [Fracture of unspecified part of unspecified clavicle, initial encounter for closed fracture] Onset: 09-17-2023 Episodic Residual codes; unclassified (1 source) Localized edema; Translations: [Localized edema] Onset: 10-24-2023 Episodic Spondylosis; intervertebral disc disorders; other back problems (1 source) Cervicalgia; Translations: [Cervicalgia] Onset: 11-17-2023 Episodic Results Test Name Value Interpretation Reference Range Facility L7000.0750on 08-19-2024 P ELASTASE,FECA 455 Normal >200 [facility] Comment on above: Result Comment: Resu lt Units: ug Elast./g Severe Pancreatic Insufficiency: <100 Moderate Pancreatic Insufficiency: 100 - 200 Normal: >200 Performed at: [facility] [address] [id number] Pathology Manager: Derrick Franklin MD, Phone: [phone] Performed By: #### L 503.6030, L503.6550, [id number] #### [facility] Laboratory [address] [place], [place], [address] Fecal Fat, Qualitativeon FATS, NEUTRAL Normal Normal . [facility] Comment on above: Order Comment: KATHLEEN Gacria ADD POLLO IBC TO BLOOD DRAWN 04/02/24 PER Order Date: 04/02/24 Order Info: [id number] - CMP Order Info: [id number] - LIPID Result Comment: Norm al (<60 Droplets/HPF) Performed By: #### L 503.6030, L503.6550, [id number] #### [facility] [address] [place], [place], [id number] FATS, TOTAL Normal Normal . [facility] Comment on above: Order Comment: KATHLEEN Garcia ADD POLLO IBC TO BLOOD DRAWN 04/02/24 PER Order Date: 04/02/24 Order Info: [id number] - CMP Order Info: [id number] - LIPID Result Comment: Norm al (<100 Droplets/HPF) Performed at: [address] [id number] Pathology Manager: Eric Dumont PhD, Phone: [phone] Performed By: #### L 503.6030, L503.6550, [id number] #### [facility] [address] [place], [place], [id number] Fecal Fat, Qualitativeon FATS, NEUTRAL TNP Normal . [facility] Comment on above: Order Comment: Test( s) 930141-Seag, Neutral; 740724-Hrbj, Totalwas developed and its performance characteristicsdetermined by [facility]. It has not been cleared or approvedby the Food and Drug Administration. Result Comment: Test not performed. One specimen was submitted with requests for multiple tests. The requested testing requires a separate specimen for each test requested. Normal (<60 Droplets/HPF) Performed By: #### L 503.6550, L801.1541, L506.0250, L503.0105, L503.6030 #### [facility] [address] [place], [address] FATS, TOTAL TNP Normal . [facility] Comment on above: Order Comment: Test( s) 824938-Mgyz, Neutral; 310021-Kzis, Totalwas developed and its performance characteristicsdetermined by [facility]. It has not been cleared or approvedby the Food and Drug Administration. Result Comment: Test not performed Performed By: #### L 503.6550, L801.1541, L506.0250, L503.0105, L503.6030 #### [facility] [address] [place], [address] FATS, NEUTRAL Normal [facility] Comment on above: Result Comment: REOR LAUREN Performed By: #### L 503.6030, L503.6550, L400.0001 #### [facility] [address] [place], [address] FATS, TOTAL Normal [facility] Comment on above: Result Comment: REOR LAUREN Performed By: #### L 503.6030, L503.6550, L400.0001 #### [facility] [address] [place], [address] L3410.9992on 08-16-2024 [facility]. COMMENT Normal . [facility] Comment on above: Order Comment: CLEAN CATCH Result Comment: Test Ordered: [id number] Stool Culture Salmonella/Shigella Screen Note: Final report Reference Range: . Result 1 Comment CB Reference Range: . No Salmonella or Shigella recovered. Campylobacter Culture Note: Final report Reference Range: . Result 1 Comment CB Reference Range: . No Campylobacter species isolated. E coli Shiga Toxin EIA Negative Reference Range: Negative Performed at: - [address] [id number] Pathology Manager: Eric Dumont PhD, Phone: [phone] Performed By: #### L 503.6030, L503.6550, L400.0001 #### [facility] [address] [place], [address] L7000.0750on 08-16-2024 P ELASTASE,FECA 743 Normal >200 [facility] Comment on above: Result Comment: Resu lt Units: ug Elast./g Severe Pancreatic Insufficiency: <100 Moderate Pancreatic Insufficiency: 100 - 200 Normal: >200 Performed at: [facility] [address] [id number] Pathology Manager: Derrick Franklin MD, Phone: [phone] Performed By: #### L 7000.0750 ####[facility] [id number] [facility] [place], [address] Acute Abdomen Inc Cheston Acute Abdomen [facility] Chest [facility] Services [address] [place] [address] Acute Abdomen [facility] Chest MR#: [id number] Acct: [id number] Name: Jose PIEDRA Rep #: [id number] : 1940 F 84 From: Emmanuel Prater MD PCP: Dr. Ronak Escalante MD Status: REG CLI Study: Acute Abdomen Inc Chest Date of Exam: 08/11/24 Exam# [id number] Ordering Dr: Ronak Escalante MD PROCEDURE: ACUTE ABDOMEN INC CHEST 08/11/2024 REASON FOR EXAM: DIARRHEA, PAIN TECHNIQUE: Single view chest with supine and upright views of the abdomen. COMPARISON: Portable chest, 02/01/2023. FINDINGS: There is chronic interstitial lung disease. There may be some element of superimposed acute interstitial lung disease. There is no lobar consolidation or pleural effusion. The heart size is normal. There is calcific vascular disease of the thoracic aorta. There is a right shoulder arthroplasty. The bowel gas pattern is nonobstructive. There is stool throughout the colon. There are 2 gallstones identified measuring 2.3 cm and 1.8 cm in diameter, respectively. 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 RAD/Acute Abdomen Inc Chest IMPRESSION: 1. There is chronic interstitial lung disease. Some element of superimposed acute interstitial lung disease is not excluded. 2. Mild constipation. 3. Cholelithiasis. Reading Location: [id number] CC: Dr. Ronak Escalante MD Um Rn: Signed Normal [facility] CBC W/Diff, Automatedon 06-0 Absolute Lymph 2.28 X10 3/uL Normal 0.83-4.51 [facility] Comment on above: Order Comment: KATHLEEN Garcia ADD POLLO IBC TO BLOOD DRAWN 04/02/24 PER Order Date: 04/02/24 Order Info: [id number] - CMP Order Info: [id number] - LIPID Performed By: #### L 503.6030, L503.6550, L400.0001 #### [facility] [address] [place], [address] Absolute Neut 3.1 X10 3/uL Normal 2.0-7.7 [facility] Comment on above: Order Comment: KATHLEEN Garcia ADD POLLO IBC TO BLOOD DRAWN 04/02/24 PER Order Date: 04/02/24 Order Info: [id number] - CMP Order Info: [id number] - LIPID Performed By: #### L 503.6030, L503.6550, [id number] #### [facility] [address] [place], [address] Basophils/100 WBC (Bld) 1.2 % High 0-1 [facility] Comment on above: Order Comment: KATHLEEN Garcia ADD POLLO IBC TO BLOOD DRAWN 04/02/24 PER Order Date: 04/02/24 Order Info: [id number] - CMP Order Info: [id number] - LIPID Performed By: #### L 503.6030, L503.6550, L400.0001 #### [facility] [address] [place], [address] Eosinophils/100 WBC (Bld) 7.2 % High 0-5 [facility] Comment on above: Order Comment: KATHLEEN Garcia ADD POLLO IBC TO BLOOD DRAWN 04/02/24 PER Order Date: 04/02/24 Order Info: [id number] - [facility] Order Info: [id number] - LIPID Performed By: #### L 503.6030, L578.6550, L400.0001 #### [facility] [address] [place], [place], [address] Erythrocyte distribution width (RBC) [Ratio] 15.3 % High 11.6-14.6 [facility] Comment on above: Order Comment: KATHLEEN Garcia ADD POLLO IBC TO BLOOD DRAWN 04/02/24 PER Order Date: 04/02/24 Order Info: 07 - [facility] Order Info: [id number] - LIPID Performed By: #### L 503.6030, L525.4758, L400.0001 #### [facility] [address] [place], [place], [address] Hematocrit (Bld) [Volume fraction] 36.1 % Low 37-47 [facility] Comment on above: Order Comment: KATHLEEN Garcia ADD POLLO IBC TO BLOOD DRAWN 04/02/24 PER Order Date: 04/02/24 Order Info: [id number] - [facility] Order Info: [id number] - LIPID Performed By: #### L 503.6030, L503.6550, L400.0001 #### [facility] [address] [place], [place], [address] Hemoglobin (Bld) [Mass/Vol] 11.4 g/dL Low 12.0-15.0 [facility] Comment on above: Order Comment: KATHLEEN Garcia ADD POLLO IBC TO BLOOD DRAWN 04/02/24 PER Order Date: 04/02/24 Order Info: [id number]- - CMP Order Info: [id number] - LIPID Performed By: #### L 503.6030, L511.6550, L400.0001 #### [facility] [address] [place], [place], [address] IG% 0.200 Normal 0.0-0.9 [facility] Comment on above: Order Comment: KATHLEEN Garcia ADD POLLO IBC TO BLOOD DRAWN 04/02/24 PER Order Date: 04/02/24 Order Info: [id number] - CMP Order Info: [id number] - LIPID Result Comment: IG% - Immature Granulocytes (promyelocytes, myelocytes and metamyelocytes) > 1% indicates that a LEFT SHIFT is Present. Performed By: #### L 503.6030, [id number], L400.0001 #### [facility] [address] [place], [place], [address] Lymphocytes/100 WBC (Bld) 34.9 % Normal 19-41 [facility] Comment on above: Order Comment: KATHLEEN Garcia ADD POLLO IBC TO BLOOD DRAWN 04/02/24 PER Order Date: 04/02/24 Order Info: 0786 - CMP Order Info: [id number] - LIPID Performed By: #### L 503.6030, L503.6550, L400.0001 #### [facility] [address] [place], [place], [address] MCH (RBC) [Entitic mass] 28.4 pg Normal 27.0-32.0 [facility] Comment on above: Order Comment: KATHLEEN Garcia ADD POLLO IBC TO BLOOD DRAWN 04/02/24 PER Order Date: 04/02/24 Order Info: [id number] - CMP Order Info: [id number] - LIPID Performed By: #### L 503.6030, L503.6550, L400.0001 #### [facility] [address] [place], [place], [address] MCHC (RBC) [Mass/Vol] 31.6 g/dL Low 32-36 [facility] Comment on above: Order Comment: KATHLEEN Garcia ADD POLLO IBC TO BLOOD DRAWN 04/02/24 PER Order Date: 04/02/24 Order Info: [id number]- - CMP Order Info: [id number] - LIPID Performed By: #### L 503.6030, L503.6550, [id number] #### [facility] [address] [place], [address] MCV (RBC) [Entitic vol] 89.8 fL Normal 81-99 [facility] Comment on above: Order Comment: KATHLEEN Garcia ADD POLLO IBC TO BLOOD DRAWN 04/02/24 PER Order Date: 04/02/24 Order Info: [id number] - CMP Order Info: [id number] - LIPID Performed By: #### L 503.6030, L503.6550, L400.0001 #### [facility] [address] [facility] [place], [address] Monocytes/100 WBC (Bld) 8.6 % Normal 0-10 [facility] Comment on above: Order Comment: KATHLEEN Garcia ADD POLLO IBC TO BLOOD DRAWN 04/02/24 PER Order Date: 04/02/24 Order Info: [id number] - CMP Order Info: [id number] - LIPID Performed By: #### L 503.6030, L503.6550, [id number] #### [facility] [address] [place], [address] Neutrophils/100 WBC (Bld) 47.9 % Normal 47-70 [facility] Comment on above: Order Comment: KATHLEEN Garcia ADD POLLO IBC TO BLOOD DRAWN 04/02/24 PER Order Date: 04/02/24 Order Info: [id number] - CMP Order Info: [id number] - LIPID Performed By: #### L 503.6030, L503.6550, [id number] #### [facility] [address] [place], [address] Nucleated RBC (Bld) [#/Vol] 0 10*3/uL Normal 0-5 [facility] Comment on above: Order Comment: KATHLEEN Garcia ADD POLLO IBC TO BLOOD DRAWN 04/02/24 PER Order Date: 04/02/24 Order Info: [id number] - CMP Order Info: [id number] - LIPID Performed By: #### L 503.6030, L503.6550, [id number] #### [facility] [address] [place], [address] Platelet mean volume (Bld) [Entitic vol] 11.8 fL Normal 6.2-12.0 [facility] Comment on above: Order Comment: KATHLEEN Garcia ADD POLLO IBC TO BLOOD DRAWN 04/02/24 PER Order Date: 04/02/24 Order Info: [id number] - CMP Order Info: - LIPID Performed By: #### L 503.6030, L503.6550, [id number] #### [facility] [address] [place], [address] Platelets (Bld) [#/Vol] 224 10*3/uL Normal 150-450 [facility] Comment on above: Order Comment: KATHLEEN Garcia ADD POLLO IBC TO BLOOD DRAWN 04/02/24 PER Order Date: 04/02/24 Order Info: [id number] - [facility] Order Info: [id number] - LIPID Performed By: #### L 503.6030, L503.6550, [id number] #### [facility] [address] [place], [address] RBC (Bld) [#/Vol] 4.02 10*6/uL Low 4.2-5.4 [facility] Comment on above: Order Comment: KATHLEEN Garcia ADD POLLO IBC TO BLOOD DRAWN 04/02/24 PER Order Date: 04/02/24 Order Info: 07 - CMP Order Info: [id number] - LIPID Performed By: #### L 503.6030, L503.6550, [id number] #### [facility] [address] [place], [address] RDW SD 50.9 fl High 35.1-43.9 [facility] Comment on above: Order Comment: KATHLEEN Garcia ADD POLLO IBC TO BLOOD DRAWN 04/02/24 PER Order Date: 04/02/24 Order Info: [id number] - CMP Order Info: [id number] - LIPID Performed By: #### L 503.6030, L503.6550, [id number] #### [facility] [address] [place], [address] WBC (Bld) [#/Vol] 6.5 10*3/uL Normal 4.4-11.0 [facility] Comment on above: Order Comment: KAHTLEEN Garcia ADD POLLO IBC TO BLOOD DRAWN 04/02/24 PER Order Date: 04/02/24 Order Info: [id number] - CMP Order Info: [id number] - LIPID Performed By: #### L 503.6030, L503.6550, [id number] #### [facility] [address] [place], [place], [id number] CDIFF (PCR)on 08-11-2024 CDIFF Order Date: 08/11/24 Order Info: [id number] - WBCST Order Info: [id number] - CUST Order Info: [id number] - C DIFF Pending 027 027 NAP1-B1 Presumptive Negative *for epidemiolologic???use C. Diff PCR Negative- No toxigenic C. Diff Detected Normal [facility] Comment on above: Performed By: #### L 503.6550, L801.1541, L506.0250, L503.0105, L503.6030 #### [facility] [address] [place], [place], [address] Comprehensive Metabolic Prof ilon 08-11-2024 Albumin [Mass/Vol] 4.0 g/dL Normal 3.4-4.8 [facility] Comment on above: Order Comment: KATHLEEN Garcia ADD POLLO IBC TO BLOOD DRAWN 04/02/24 PER Order Date: 04/02/24 Order Info: [id number] - CMP Order Info: [id number] - LIPID Performed By: #### L 503.6009, L503.6550, [id number] #### [facility] [address] [place], [address] Albumin/Globulin [Mass ratio] 1.4 {ratio} Normal 0.9-2.4 [facility] Comment on above: Order Comment: KATHLEEN Garcia ADD POLLO IBC TO BLOOD DRAWN 04/02/24 PER Order Date: 04/02/24 Order Info: [id number] - CMP Order Info: [id number] - LIPID Performed By: #### L 503.6030, L503.6550, [id number] #### [facility] [address] [place], [place], [address] ALK PHOS 77 U/L Normal 35-104 [facility] Comment on above: Order Comment: KATHLEEN Garcia ADD POLLO IBC TO BLOOD DRAWN 04/02/24 PER Order Date: 04/02/24 Order Info: [id number] - CMP Order Info: [id number] - LIPID Performed By: #### L 503.6030, L503.6550, [id number] #### [facility] [address] [place], [place], [address] ALT [Catalytic activity/Vol] 22 U/L Normal <=34 [facility] Comment on above: Order Comment: KATHLEEN Garcia ADD POLLO IBC TO BLOOD DRAWN 04/02/24 PER Order Date: 04/02/24 Order Info: [id number] - CMP Order Info: [id number] - LIPID Performed By: #### L 503.6030, L503.6550, [id number] #### [facility] [address] [place], [place], [address] AST [Catalytic activity/Vol] 26 U/L Normal <=31 [facility] Comment on above: Order Comment: KATHLEEN Garcia ADD POLLO IBC TO BLOOD DRAWN 04/02/24 PER Order Date: 04/02/24 Order Info: [id number] - CMP Order Info: [id number] - LIPID Performed By: #### L 503.6030, L503.6550, [id number] #### [facility] [address] [place], [place], [address] Bilirubin [Mass/Vol] 0.40 mg/dL Normal 0.00-1.30 [facility] Comment on above: Order Comment: KATHLEEN Garcia ADD POLLO IBC TO BLOOD DRAWN 04/02/24 PER Order Date: 04/02/24 Order Info: [id number] - CMP Order Info: [id number] - LIPID Performed By: #### L 503.6030, L503.6550, [id number] #### [facility] [address] [place], [address] BUN/CRE 12.2 RATIO Normal 10-20 [facility] Comment on above: Order Comment: KATHLEEN Garcia ADD POLLO IBC TO BLOOD DRAWN 04/02/24 PER Order Date: 04/02/24 Order Info: [id number] - CMP Order Info: [id number] - LIPID Performed By: #### L 503.6030, L503.6550, [id number] #### [facility] [address] [place], [address] Calcium [Mass/Vol] 9.5 mg/dL Normal 7.6-11.0 [facility] Comment on above: Order Comment: KATHLEEN Garcia ADD POLLO IBC TO BLOOD DRAWN 04/02/24 PER Order Date: 04/02/24 Order Info: [id number] - CMP Order Info: [id number] - LIPID Performed By: #### L 503.6030, L503.6550, [id number] #### [facility] [address] [facility] [place], [place], [address] Chloride [Moles/Vol] 101 mmol/L Normal 98-108 [facility] Comment on above: Order Comment: KATHLEEN Garcia ADD POLLO IBC TO BLOOD DRAWN 04/02/24 PER Order Date: 04/02/24 Order Info: [id number] - CMP Order Info: [id number] - LIPID Performed By: #### L 503.6030, L503.6550, [id number] #### [facility] [address] [place], [place], [address] CO2 [Moles/Vol] 24.4 mmol/L Normal 21.0-32.0 [facility] [facility] Comment on above: Order Comment: KATHLEEN Garcia ADD POLLO IBC TO BLOOD DRAWN 04/02/24 PER Order Date: 04/02/24 Order Info: 07 - CMP Order Info: [id number] - LIPID Performed By: #### L 503.6030, L503.6550, L400.0001 #### [facility] [address] [place], [place], [id number] Creatinine [Mass/Vol] 0.73 mg/dL Normal 0.70-1.20 [facility] Comment on above: Order Comment: KATHLEEN Garcia ADD POLLO IBC TO BLOOD DRAWN 04/02/24 PER Order Date: 04/02/24 Order Info: [id number] - CMP Order Info: [id number] - LIPID Performed By: #### L 503.6030, L503.6550, L400.0001 #### [facility] [address] [place], [place], [address] GAP 12 Normal 5-15 [facility] Comment on above: Order Comment: KATHLEEN Garcia ADD POLLO IBC TO BLOOD DRAWN 04/02/24 PER Order Date: 04/02/24 Order Info: [id number] - CMP Order Info: [id number] - LIPID Performed By: #### L 503.6030, L503.6550, L400.0001 #### [facility] [address] [place], [place], [address] GFR/1.73 sq M.predicted among non-blacks MDRD (S/P/Bld) [Vol rate/Area] 80 mL/min/{1.73_m2} Normal >60 [facility] Comment on above: Order Comment: KATHLEEN Garcia ADD POLLO IBC TO BLOOD DRAWN 04/02/24 PER Order Date: 04/02/24 Order Info: [id number] - CMP Order Info: - LIPID Result Comment: mL/m in/1.73m2 CKD-EPI Creatinine Equation (2020) Performed By: #### L 503.6030, L503.6550, L400.0001 #### [facility] [address] [place], [place], [id number] Globulin (S) [Mass/Vol] 2.8 g/dL Normal 2.2-4.2 [facility] Comment on above: Order Comment: KATHLEEN Garcia ADD POLLO IBC TO BLOOD DRAWN 04/02/24 PER Order Date: 04/02/24 Order Info: [id number] - CMP Order Info: - LIPID Performed By: #### L 503.6030, L510.6550, L400.0001 #### [facility] [address] [place], [place], [address] Glucose [Mass/Vol] 142 mg/dL High 70-99 [facility] Comment on above: Order Comment: KATHLEEN Garcia ADD POLLO IBC TO BLOOD DRAWN 04/02/24 PER Order Date: 04/02/24 Order Info: [id number] - CMP Order Info: [id number] - LIPID Performed By: #### L 503.6030, L503.6550, L400.0001 #### [facility] [address] [place], [place], [address] Potassium [Moles/Vol] 4.1 mmol/L Normal 3.3-5.1 [facility] Comment on above: Order Comment: KATHLEEN Garcia ADD POLLO IBC TO BLOOD DRAWN 04/02/24 PER Order Date: 04/02/24 Order Info: [id number] - CMP Order Info: - LIPID Performed By: #### L 503.6030, L503.6550, L400.0001 #### [facility] [address] [place], [place], [address] Sodium [Moles/Vol] 137 mmol/L Normal 133-145 [facility] Comment on above: Order Comment: KATHLEEN Garcia ADD POLLO IBC TO BLOOD DRAWN 04/02/24 PER Order Date: 04/02/24 Order Info: [id number] - CMP Order Info: [id number] - LIPID Performed By: #### L 503.6030, L503.6550, L400.0001 #### [facility] [address] [place], [address] T PROT 6.7 g/dL Normal 5.9-8.4 [facility] Comment on above: Order Comment: KATHLEEN Garcia ADD POLLO IBC TO BLOOD DRAWN 04/02/24 PER Order Date: 04/02/24 Order Info: 0786 - CMP Order Info: [id number] - LIPID Performed By: #### L 503.6030, L503.6550, L400.0001 #### [facility] [address] [place], [place], [address] Urea nitrogen [Mass/Vol] 9 mg/dL Normal 4-19 [facility] Comment on above: Order Comment: KATHLEEN Garcia ADD POLLO IBC TO BLOOD DRAWN 04/02/24 PER Order Date: 04/02/24 Order Info: [id number] - CMP Order Info: [id number] - LIPID Performed By: #### L 503.6030, L503.6550, L400.0001 #### [facility] [address] [place], [address] Magnesiumon 08-11-2024 Magnesium [Mass/Vol] 1.8 mg/dL Normal 1.5-2.2 [facility] Comment on above: Order Comment: KATHLEEN Garcia ADD POLLO IBC TO BLOOD DRAWN 04/02/24 PER Order Date: 04/02/24 Order Info: [id number] - CMP Order Info: [id number] - LIPID Performed By: #### L 503.6030, L503.6550, L400.0001 #### [facility] [address] [place], [id number] Stool Lactoferrin/WBCon 06-0 WBCST Order Date: 08/11/24 Order Info: [id number] - WBCST Order Info: [id number] - CUST Order Info: [id number] - C DIFF Normal Reference Range = Negative Fecal WBC Lactoferrin Negative: No Fecal WBC Lactoferrin present Normal [facility] Comment on above: Performed By: #### L 503.6030, L503.6550, L400.0001 #### [facility] [address] [place], [id number] CBC-Complete Blood Cnt No Di ffon 07-01-2024 Erythrocyte distribution width (RBC) [Ratio] 16.6 % High 11.6-14.6 [facility] Comment on above: Performed By: #### L 503.6030, L503.6550, L400.0001 #### [facility] [address] [place], [id number] Hematocrit (Bld) [Volume fraction] 29.1 % Low 37-47 [facility] Comment on above: Performed By: #### L 503.6030, L503.6550, L400.0001 #### [facility] [address] [place], [id number] Hemoglobin (Bld) [Mass/Vol] 9.5 g/dL Low 12.0-15.0 [facility] Comment on above: Performed By: #### L 503.6030, L503.6550, L400.0001 #### [facility] [address] [place], [id number] MCH (RBC) [Entitic mass] 29.0 pg Normal 27.0-32.0 [facility] Comment on above: Performed By: #### L 503.6030, L503.6550, L400.0001 #### [facility] [address] [place], [id number] MCHC (RBC) [Mass/Vol] 32.6 g/dL Normal 32-36 [facility] Comment on above: Performed By: #### L 503.6030, L503.6550, L400.0001 #### [facility] [address] [place], [address] MCV (RBC) [Entitic vol] 88.7 fL Normal 81-99 [facility] Comment on above: Performed By: #### L 503.6030, L503.6550, L400.0001 #### [facility] [address] [place], [id number] Platelet mean volume (Bld) [Entitic vol] 11.2 fL Normal 6.2-12.0 [facility] Comment on above: Performed By: #### L 503.6030, L503.6550, L400.0001 #### [facility] [address] [place], [address] Platelets (Bld) [#/Vol] 300 10*3/uL Normal 150-450 [facility] Comment on above: Performed By: #### L 503.6030, L503.6550, L400.0001 #### [facility] [address] [place], [id number] RBC (Bld) [#/Vol] 3.28 10*6/uL Low 4.2-5.4 [facility] Comment on above: Performed By: #### L 503.6030, L503.6550, L400.0001 #### [facility] [address] [place], [address] RDW SD 54.1 fl High 35.1-43.9 [facility] Comment on above: Performed By: #### L 503.6030, L503.6550, L400.0001 #### [facility] [address] [place], [address] WBC (Bld) [#/Vol] 15.3 10*3/uL High 4.4-11.0 [facility] Comment on above: Performed By: #### L 503.6030, L503.6550, L400.0001 #### [facility] [address] [place], [address] Basic Metabolic Profile (BMP )on 06-23-2024 BUN/CRE 22.8 RATIO High 10-20 [facility] Comment on above: Performed By: #### L 503.6030, L503.6550, L400.0001 #### [facility] [address] [place], [address] Calcium [Mass/Vol] 8.8 mg/dL Normal 7.6-11.0 [facility] Comment on above: Performed By: #### L 503.6030, L503.6550, L400.0001 #### [facility] [address] [place], [address] Chloride [Moles/Vol] 97 mmol/L Low 98-108 [facility] Comment on above: Performed By: #### L 503.6030, L503.6550, L400.0001 #### [facility] [address] [place], [address] CO2 [Moles/Vol] 26.1 mmol/L Normal 21.0-32.0 [facility] Comment on above: Performed By: #### L 503.6030, L503.6550, L400.0001 #### [facility] [address] [place], [address] Creatinine [Mass/Vol] 0.73 mg/dL Normal 0.70-1.20 [facility] Comment on above: Performed By: #### L 503.6030, L503.6550, L400.0001 #### [facility] [address] [place], [address] ECRCL 49.33 ml/min Low 50-250 [facility] Comment on above: Performed By: #### L 503.6030, L503.6550, L400.0001 #### [facility] [address] [place], [address] GAP 8 Normal 5-15 [facility] Comment on above: Performed By: #### L 503.6030, L503.6550, L400.0001 #### [facility] [address] [place], [address] GFR/1.73 sq M.predicted among non-blacks MDRD (S/P/Bld) [Vol rate/Area] 81 mL/min/{1.73_m2} Normal >60 [facility] Comment on above: Result Comment: mL/m in/1.73m2 CKD-EPI Creatinine Equation (2020) Performed By: #### L 503.6030, L503.6550, L400.0001 #### [facility] [address] [place], [address] Glucose [Mass/Vol] 169 mg/dL High 70-99 [facility] Comment on above: Performed By: #### L 503.6030, L503.6550, L400.0001 #### [facility] [address] [place], [address] Potassium [Moles/Vol] 4.0 mmol/L Normal 3.3-5.1 [facility] Comment on above: Performed By: #### L 503.6030, L503.6550, L400.0001 #### [facility] [address] [place], [address] Sodium [Moles/Vol] 131 mmol/L Low 133-145 [facility] Comment on above: Performed By: #### L 503.6030, L503.6550, L400.0001 #### [facility] [address] [place], [address] Urea nitrogen [Mass/Vol] 17 mg/dL Normal 4-19 [facility] Comment on above: Performed By: #### L 503.6030, L503.6550, L400.0001 #### [facility] [address] [place], [address] Bedside Glucoseon 06-23-2024 FINGERSTICK GLU 188 mg/dL High 74-106 [facility] Comment on above: Result Comment: SHADIA GEMENT OF PATIENT CARE PER NURSING PROTOCOL Performed By: #### L 503.6030, L503.6550, L400.0001 #### [facility] [address] [place], [address] FINGERSTICK GLU 191 mg/dL High 74-106 [facility] Comment on above: Result Comment: SHADIA GEMENT OF PATIENT CARE PER NURSING PROTOCOL Performed By: #### L 503.6030, L503.6550, L400.0001 #### [facility] [address] [place], [address] Discharge Instructionon 06-08 Discharge Instruction [facility] Medical Records Department [address] [place] [address] Instructions for Home/Discharge Instructions 06/23/24 1013 MR#: [id number] Acct: [id number] Name: Jose PIEDRA Rep #: [id number] : 1940 84 From: Charly GARAY PA-C PCP: Dr. Ronak Escalante MD Status:ADM ALBERTA Discharge Instructions Diet Discharge Diet: No restrictions DC O2, CPAP, BIPAP needs Home O2 Discharge instructions: No Dressing / Incision Discharge Activity: May Not Drive (No driving for 6 weeks postoperatively. Must also be off all narcotics and able to walk 100 feet without the use of cane or walker.) May shower in (days): 1 (Dressing must be intact to skin. Turn dressing away from water.) Ice area for (Minutes): 20 (Every 1-2 hours while awake[address] Please place barrier between skin and ice pack.) Weight Bearing Status: No weight bearing (Postoperative upper extremity) Additional Activity Instructions:: Continue with UltraSling at all times. Please come out of UltraSling 3 times daily working on elbow range of motion and pendulum exercises. No range of motion of postoperative shoulder. Will begin outpatient physical therapy after 2-week scheduled follow-up. Dressing / Incision Call your doctor if your incision/area has: Continuous Slow Oozing, Sudden Increased Bleeding, Increased Pain/ Swelling, Increased Redness and Foul Smelling Discharge Call your doctor if you observe: Fever of 101 or Higher, Shortness of breath, Chest pain and Uncontrolled pain Remove Dressing in: 3 days (Okay to remove dressing on June 26, 2024) Additional Dressing/Incision Instructions:: Follow [facility] Post-op Instructions. Once postoperative dressing has been removed only use gentle soap and water over the incision. Do not use any ointments, Neosporin, salves, alcohol pads over the incision for 6 weeks postoperatively. Do not submerge underwater for 6 weeks postoperatively. Continue ferrous sulfate and folic acid for treatment of the anemia. Follow-up with your primary care provider next week with outpatient lab work. Do NOT use alcohol with narcotic pain medication. Do NOT make important decisions while taking narcotic medication. If you have problems with taking your medication (rash, itching, nausea, etc.) call the office at once. Follow Up Care Test Results: Test results from this visit will be discussed in further detail at your follow-up appointment, if applicable. Discharge Plan Admission Admit Date/Time: 06/21/24 07:10 Attending Provider: Sheridan Nowak Primary Care Provider: Ronak Escalante Consulting Providers: Sylvain Salamanca Discharge Orders/Prescriptions Prescriptions: New acetaminophen 500 mg Tablet 1,000 mg PO TID 14 Days Qty: 84 0RF Rx Instructions: Do not take more than 3000 mg Tylenol in a 24-hour period. doxycycline monohydrate 100 mg Capsule 100 mg PO BID 12 Days Qty: 24 0RF Rx Instructions: Take for 2 weeks postoperatively aspirin 81 mg Tablet,Chewable 81 mg PO BID 14 Days Qty: 0 0RF Rx Instructions: Take 81 mg aspirin twice daily for 2 weeks postoperatively for DVT prophylaxis. After 2 weeks you can then go back to your normal 81 mg aspirin daily. meloxicam 7.5 mg Tablet 7.5 mg PO BID 30 Days Qty: 60 0RF Rx Instructions: Do not take any other nonsteroidal anti-inflammatories while using meloxicam/Mobic. oxycodone 5 mg Tablet 5 - 10 mg PO Q4H PRN PRN (Reason: As needed for pain) 7 Days Qty: 42 0RF sennosides-docusate sodium [Stimulant Laxative Plus] 8.6-50 mg Tablet 2 tab PO BID 3 Days Qty: 12 0RF Rx Instructions: Take until first bowel movement, then as needed Continued hydrochlorothiazide 12.5 mg tablet 12.5 mg PO DAILY Patient Comments: Take 1 tablet by mouth daily atorvastatin 40 mg tablet 40 mg PO DAILY Patient Comments: TAKE 1 TABLET DAILY timolol maleate 0.5 % drops 1 drp ophthalmic (eye) BID Patient Comments: 1 drop in right eye daily lisinopril 20 mg tablet 20 mg PO QDAY Austedo XR 18 mg tablet extended release 24 hr 18 mg PO QDAY Qty: 90 1RF escitalopram oxalate 10 mg tablet 10 mg PO DAILY Qty: 90 1RF mirtazapine 15 mg tablet 15 mg PO QHS Qty: 90 1RF ferrous sulfate [Feosol] 325 mg (65 mg iron) tablet 325 mg PO BID PROTEIN DRINK Rx Instructions: DAILY UNTIL DAY OF SURGERY insulin glargine [Lantus Solostar U-100 Insulin] 100 unit/mL (3 mL) insulin pen 36 unit subcut DAILY folic acid 1 mg tablet 1 mg PO DAILY insulin aspart U-100 [Novolog FlexPen U-100 Insulin] 100 unit/mL (3 mL) insulin pen SUBCUT Patient Comments: INJECT 5 Units under the skin with breakfast and 7 units with lunch and dinner omeprazole 20 mg capsule,delayed release(DR/EC) 20 mg PO DAILY cinnamon bark [Cinnamon] 500 mg capsule 1,000 mg PO DAILY cholecalciferol (vitamin D3) [Vitamin D3] 25 mcg (1,000 unit) capsule 25 mcg PO BID Discontinued aspi (more content not included)... Normal [facility] Basic Metabolic Profile (BMP )on 06-22-2024 BUN/CRE 14.8 RATIO Normal - [facility] Comment on above: Performed By: #### L 100.0500, L500.2500 ####[facility] [address] [place], [address] Calcium [Mass/Vol] 8.9 mg/dL Normal 7.6-11.0 [facility] Comment on above: Performed By: #### L 100.0500, L500.2500 ####[facility] [address] [place], [address] Chloride [Moles/Vol] 98 mmol/L Normal 98-108 [facility] Comment on above: Performed By: #### L 100.0500, L500.2500 ####[facility] [address] [place], [address] CO2 [Moles/Vol] 25.1 mmol/L Normal 21.0-32.0 [facility] Comment on above: Performed By: #### L 100.0500, L500.2500 ####[facility] [address] [place], [address] Creatinine [Mass/Vol] 0.80 mg/dL Normal 0.70-1.20 [facility] Comment on above: Performed By: #### L 100.0500, L500.2500 ####[facility] [address] [place], [address] ECRCL 49.33 ml/min Low 50-250 [facility] Comment on above: Performed By: #### L 100.0500, L500.2500 ####[facility] [address] [place], [address] GAP 10 Normal 5-15 [facility] Comment on above: Performed By: #### L 100.0500, L500.2500 ####[facility] [address] [place], [address] GFR/1.73 sq M.predicted among non-blacks MDRD (S/P/Bld) [Vol rate/Area] 72 mL/min/{1.73_m2} Normal >60 [facility] Comment on above: Result Comment: mL/m in/1.73m2 CKD-EPI Creatinine Equation (2020) Performed By: #### L 100.0500, L500.2500 ####[facility] [address] [place], [address] Glucose [Mass/Vol] 180 mg/dL High 70-99 [facility] Comment on above: Performed By: #### L 100.0500, L500.2500 ####[facility] [address] [place], [address] Potassium [Moles/Vol] 4.3 mmol/L Normal 3.3-5.1 [facility] Comment on above: Performed By: #### L 100.0500, L500.2500 ####[facility] [address] [place], [address] Sodium [Moles/Vol] 133 mmol/L Normal 133-145 [facility] Comment on above: Performed By: #### L 100.0500, L500.2500 ####[facility] [address] [place], [address] Urea nitrogen [Mass/Vol] 12 mg/dL Normal 4-19 [facility] Comment on above: Performed By: #### L 100.0500, L500.2500 ####[facility] [address] [place], [address] Bedside Glucoseon 06-22-2024 FINGERSTICK GLU 196 mg/dL High 74-106 [facility] Comment on above: Result Comment: SHADIA GEMENT OF PATIENT CARE PER NURSING PROTOCOL Performed By: #### L 503.6020, L503.6550, L400.0001 #### [facility] [address] [place], [address] FINGERSTICK GLU 255 mg/dL High 74-106 [facility] Comment on above: Result Comment: SHADIA GEMENT OF PATIENT CARE PER NURSING PROTOCOL Performed By: #### L 501.080 ####[facility] [address] [place], [address] CBC-Complete Blood Cnt No Di ffon 06-22-2024 Erythrocyte distribution width (RBC) [Ratio] 16.2 % High 11.6-14.6 [facility] Comment on above: Performed By: #### L 100.0500, L500.2500 ####[facility] [address] [place], [address] Hematocrit (Bld) [Volume fraction] 32.2 % Low 37-47 [facility] Comment on above: Performed By: #### L 100.0500, L500.2500 ####[facility] [address] [place], [address] Hemoglobin (Bld) [Mass/Vol] 10.4 g/dL Low 12.0-15.0 [facility] Comment on above: Performed By: #### L 100.0500, L500.2500 ####[facility] [address] [place], [address] MCH (RBC) [Entitic mass] 28.3 pg Normal 27.0-32.0 [facility] Comment on above: Performed By: #### L 100.0500, L500.2500 ####[facility] [address] [place], [address] MCHC (RBC) [Mass/Vol] 32.3 g/dL Normal 32-36 [facility] Comment on above: Performed By: #### L 100.0500, L500.2500 ####[facility] [address] [place], [address] MCV (RBC) [Entitic vol] 87.7 fL Normal 81-99 [facility] Comment on above: Performed By: #### L 100.0500, L500.2500 ####[facility] [address] [place], [address] Platelet mean volume (Bld) [Entitic vol] 11.8 fL Normal 6.2-12.0 [facility] Comment on above: Performed By: #### L 100.0500, L500.2500 ####[facility] [address] [place], [address] Platelets (Bld) [#/Vol] 177 10*3/uL Normal 150-450 [facility] Comment on above: Performed By: #### L 100.0500, L500.2500 ####[facility] [address] [place], [address] RBC (Bld) [#/Vol] 3.67 10*6/uL Low 4.2-5.4 [facility] Comment on above: Performed By: #### L 100.0500, L500.2500 ####[facility] [address] [place], [address] RDW SD 52.2 fl High 35.1-43.9 [facility] Comment on above: Performed By: #### L 100.0500, L500.2500 ####[facility] [address] [place], [address] WBC (Bld) [#/Vol] 9.5 10*3/uL Normal 4.4-11.0 [facility] Comment on above: Performed By: #### L 100.0500, L500.2500 ####[facility] [address] [place], [address] Bedside Glucoseon 06-21-2024 FINGERSTICK GLU 183 mg/dL High 74-106 [facility] Comment on above: Result Comment: SHADIA BLANCO OF PATIENT CARE PER NURSING PROTOCOL Performed By: #### L 503.6030, L503.6550, L400.0001 #### [facility] [address] [place], [address] FINGERSTICK GLU 253 mg/dL High 74-106 [facility] Comment on above: Result Comment: SHADIA GEMENT OF PATIENT CARE PER NURSING PROTOCOL Performed By: #### L 503.6030, L503.6550, L400.0001 #### [facility] [address] [place], [address] FINGERSTICK GLU 295 mg/dL High -106 [facility] Comment on above: Result Comment: SHADIA GEMENT OF PATIENT CARE PER NURSING PROTOCOL Performed By: #### L 503.6030, L503.6550, L400.0001 #### [facility] [address] [place], [address] FINGERSTICK GLU 332 mg/dL High -106 [facility] Comment on above: Result Comment: SHADIA GEMENT OF PATIENT CARE PER NURSING PROTOCOL Performed By: #### L 503.6030, L503.6550, L400.0001 #### [facility] [address] [place], [address] Decalcification bone/plaqueo n 06-21-2024 Decalcification bone/plaque ----- Patient Age/Sex Location Account Attending Physician ----- Jose PIEDRA 84/F MS3 [id number] Dr. Sheridan Nowak MD ----- Specimen: [id number] Received: 06/21/24 Status: TAVIA Bruce Num: [id number] Spec Type: HUMERUS Subm Dr: Dr. Sheridan Nowak MD HEADER OPERATION: ERAS, right reverse total shoulder arthroplasty PRE-OP DIAGNOSIS: Severe right shoulder glenohumeral osteoarthritis TISSUE SUBMITTED: A- Right humeral head ----- MICROSCOPIC DIAGNOSIS A. Right humeral head, total shoulder arthroplasty: * Articular bone with reactive/degenerative changes. * Focal trilineage hematopoiesis. MICROSCOPIC DESCRIPTION Slides are reviewed. GROSS DESCRIPTION A. Received in formalin in a container labeled with the patient's name, date of , and right humeral head is a firm and semispherical 4.5 x 4.3 x 1.5 cm humeral head. The resection margin is smooth and firm and the cortical surface is pitted and granular with smooth eburnation. Sectioning reveals firm, red-hunter surfaces. Machine Stuffer Automatic sections are submitted in A1 following decalcification. [facility] 06-21-2024 CPT:[id number] ----- Patient Age/Sex Location Account Attending Physician ----- Jose PIEDRA 84/F MS3 [id number] Dr. Sheridan Nowak MD ----- Signed (signature on file) Dr. Miriam Chan MD 07/08/24 0842 ----- Normal [facility] Comment on above: Performed By: #### P DEC ####[facility] [address] [place], [address] MR/POSTOP.[facility] 06-21-2024 MR/POSTOP.[facility] Medical Records Department [id number] [place] [address] Anesthesia Postop Eval I 06/21/24 1112 MR#: [id number] Acct: [id number] Name: Jose PIEDRA Rep #: [id number] : 1940 84 From: Gail Baker BUGGY DRIVER PCP: Dr. Ronak Escalante MD Status:REG [facility] Y Race: C Location: [place] [address] Anesthesia: Postop Eval I Current Vital Signs Temperature: 97.9 F Pulse Rate: 69 Blood Pressure: 155/54 Respiratory Rate: 16 Pulse Ox: 90 Oxygen Delivery Method: Room Air Assessment Airway patent: Yes Spontaneous unlabored respirations: Yes Mental status: Awake nausea: No Vomiting: No Anesthesia Complication: No Fluid Hydration Crystalloid volume administer (ml): 800 Total IV fluid infused: 800 Progress Note Anesthesia document: Postop Eval 1 completed: Yes 06/21/24 1113 Date Gail Baker BUGGY DRIVER Cosigner Signature: Date CC: Signed Normal [facility] MR/[id number] 06-21-2024 [facility] Medical Records Department [address] [place] [address] Anesthesia Postop Eval II 06/21/24 1146 MR#: [id number] Acct: [id number] Name: Jose PIEDRA Rep #: [id number] : 1940 84 From: Michael Gotti MD PCP: Dr. Ronak Escalante MD Status:REG [facility] Y Race: C Location: [place] [address] Anesthesia Postop Eval I Sum Postop Eval Completion status Anesthesia document: Postop Eval 1 completed: Yes Anesthesia Postop Eval I Summary Anesthesia Postop Eval I Summary: Anesthesia Postop Eval I: Assessment Summary Airway patent Yes 06/21/24 11:13 BUGGY [email or web address].JDEF Spontaneous unlabored Yes 06/21/24 11:13 BUGGY DRIVER.JDEF respirations Mental status Awake 06/21/24 11:13 BUGGY DRIVER.JDEF nausea No 06/21/24 11:13 BUGGY DRIVER.JDEF Vomiting No 06/21/24 11:13 BUGGY DRIVER.JDEF Anesthesia Postop Eval I: Fluid Summary Crystalloid volume administer 800 06/21/24 11:13 BUGGY DRIVER.JDEF (ml) Colloids volume administered ( ml) Blood Product volume administered (ml) Total IV fluid infused 800 06/21/24 11:13 BUGGY DRIVER.JDEF Anesthesia Postop Eval I: Summary Notes Anesthesia Complication No 06/21/24 11:13 BUGGY DRIVER.JDEF Anesthesia Complication Comment: Post-operative progress note Anesthesia: Postop Eval II Evaluation Mental status: Awake Pain Level: 2 nausea: No Vomiting: No 06/21/24 1146 Date Michael Ojeda Signature: Date CC: Signed Normal [facility] Operative Reporton 5 Operative Report [facility] Medical Records Department [address] [place] [address] Operative Report 06/21/24 1034 MR#: [id number] Acct: [id number] Name: Jose PIEDRA Rep #: [id number] : 1940 84 From: Sheridan Nowak MD PCP: Dr. 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 They were important in appropriate retraction during the case, and protectio) Additional permit review assistant?: Yes Additional Archival Studies Professor #2: Rhina Aguayo Tasks completed by permit review assistant #2: Other (Positioning, opening) Additional permit review assistant?: No Type of Anesthesia: General RN Documented Start/Stop Times: Operation Date: 06/21/24 09:45 Case Time Into Pre-Op 06/21/24 07:56 Out of Pre-Op 06/21/24 09:19 Anesthesia Start 06/21/24 09:20 Into Room 06/21/24 09:20 Procedure Start 06/21/24 09:52 Procedure End 06/21/24 10:58 Anesthesia End 06/21/24 11:04 Out of Room 06/21/24 11:04 Into Recovery 06/21/24 11:06 Procedure Start Time: 09:52 Procedure Stop Time: 10:58 Select all DRAINS/GRAFTS/IMPLANTS that apply: Prosthetic device Prosthetic device details: See body of operative report Special Medications: 2 g Ancef, 1 g TXA at incision, 1 g TXA closure, 10 mg Decadron, joint cocktail (5 mg Duramorph, 30 mL of 0.5% Ropivicaine, 1000 units of epinephrine, 30 mg of Toradol) Estimated Blood Loss: Bony cuts Fluids Replaced: 600 mm crystalloid Specimen collected: Yes Description of specimen(s) removed: Bony cuts Description of surgery: Components used 1. Tornier perform 25 mm glenoid baseplate 2. Tornier perform 36 mm, 0mm Glenosphere 3. Tornier perform 36mm, 0mm humeral liner retentive 4. 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 Patient failed conservative measures as mentioned in the H P. After discussion of risk and benefits of reverse total shoulder replacement including but not limited to blood loss, DVTs, PEs, nerve vessel damage, infection, general risk of anesthesia including loss of life, instability and stiffness patient demonstrating understanding wish to proceed was able to sign informed consent. Medical clearance was obtained. Procedure: On the date of the procedure, patient's R upper extremity was marked in the preoperative area. Patient was taken back to the operating room where they were placed on the table in the supine position. Anesthesia assumed control of the C-spine and airway, then administered anesthetic. All bony prominences were identified well-padded, the head was secured and the patient was placed in the beachchair position at about 35??? inclination. Anesthesia remained in control of the C-spine airway throughout the remainder of the procedure. Patient was then appropriately fastened to the table and the R upper extremity was prepped in a sterile fashion. The surgeons then scrubbed. Upon reentering the room, the R upper extremity was draped in a sterile fashion and the incision was marked out. Timeout was called, everyone agreed upon the side, the site, the procedure to be performed, patient identity and antibiotics given. Incision was taken down through skin and subcutaneous tissue, fat down to fascia. The stripe of the deltopectoral interval and cephalic vein were identified and blunt dissection was used to retract the deltoid. The cephalic vein was retracted laterally. Clavipectoral fascia was then incised and a cobra retractor was placed in the wound. The proximal one third of the pectoralis major insertion was released. Pectoralis tendon insertion was used to tenodesed the biceps tendon which was identified in the bicipital groove. Tenodesis was done with #1 Vicryl. Proximally we followed the biceps tendon after transecting it into the rotator interval. The rotator interval was split and the arm was externally rotated. The split was 1 cm medial to the bicipital groove. Subscapularis tendon was released. We released down the anterior portion of the humeral head and a lira elevator was used to release the inferior portion of the humeral head. The arm was externally rotated and the shoulder was dislocated. The humeral (more content not included)... Normal [facility] Shoulder min 2 Viewson 06-21 Shoulder min [address] [facility] Imaging Services [address] [place], [place] [address] Shoulder min 2 Views MR#: [id number] Acct: [id number] Name: Jose PIEDRA Rep #: [id number] : 1940 F 84 From: Girish Polanco MD PCP: Dr. Ronak Escalante MD Status: [facility] Study: Shoulder min 2 Views Date of Exam: 06/21/24 Exam# [id number] Ordering Dr: Sheridan Nowak MD PROCEDURE: SHOULDER MIN 2 VIEWS 06/21/2024 REASON FOR EXAM: POST-OP TECHNIQUE: 2 view(s) of the left shoulder COMPARISON: None FINDINGS: Bones: Old distal clavicle fracture. No acute fracture or dislocation. Joints: Reverse shoulder arthroplasty appears aligned. Soft tissues: No unexpected radiopaque foreign body. RAD/Shoulder min 2 Views IMPRESSION: Expected postoperative appearance of reverse shoulder arthroplasty. Reading [facility] CC: Dr. Ronak Escalante MD; Dr. Sheridan Nowak MD Um Rn: Signed Normal [facility] MR/BMS.BPon 06-14-2024 MR/BMS.BP [address], [address] [place] [address] OFFICE VISIT Date of Service: 06/14/24 MR#: [id number] Acct: [id number] Name: Jose PIEDRA Rep #: [id number] : 1940 Provider: Dr. Sheridan Lima se, DO Age/Sex: 84/F Location: [facility] Status: Signed Intake Vital Signs 03/18/24 08:30 06/14/24 09:43 Height 5 ft 2 in 5 ft 2 in BP Intake Visit Reasons: 3 M FU Allergies codeine Allergy (Verified 05/31/24 10:34) Rash morphine Allergy (Verified 05/31/24 10:34) Rash Have you fallen in the past year?: No PFSH Medical History (Updated 05/31/24 @ 11:07 by Waleska Perez) Blindness of right eye Anemia Gastric reflux Chest pain Wears hearing aid Wears contact lenses Post-menopausal Anxiety History of steroid therapy Thyroid disease Insulin dependent diabetes mellitus Ambulates with cane Arthritis High cholesterol Migraine headache TIA (transient ischemic attack) Syncope Difficulty swallowing Dietary restriction History of diverticulitis Non-smoker History of stress test History of rheumatic fever Tardive dyskinesia Major depressive disorder GERD (gastroesophageal reflux disease) Hypertension Hx of emotional problems Surgical History (Updated 12/08/23 @ 11:26 by Kristi Weldon) History of cornea transplant Hx of left cataract extraction Hx of right cataract extraction History of esophagogastroduodenoscopy (EGD) Hx of colonoscopy History of carpal tunnel surgery of right wrist History of carpal tunnel surgery of left wrist History of knee replacement H/O repair of rotator cuff H/O: hysterectomy H/O thyroidectomy Family History Other Cancer Diabetes Social History Smoking Status: Never smoker alcohol intake: never substance use type: does not use HPI History of Present Illness History provided by: patient HPI: Karri Piedra is a 84 year old female who presents today for follow up evaluation. Does present with her today. Will be having shoulder surgery on right shoulder next week. Got her A1c down to 7.5 so was cleared to have it done. She is very excited about this as she was supposed to have in December. Was able to get Austedo XR and has been doing well with this medication. Sleep has been doing well, getting about 10 hours of sleep. Will sometimes lay down in afternoon but not nap. Denies any recent falls, again thinks that since her sugar is more controlled this has been better. Denies SI/HI or AVH. Has not been going to rastafarian as she doesn't feel comfrotable around a lot of people. Will be going on Friday. 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 Will have to do physical therapy following shoulder which she feels will keep her busy. Some mild orofacial grimacing noted but largely stable. Review of Systems Constitutional Denies: fever(s), chills or fatigue Eyes Denies: change in vision or blurry vision Ears, Nose, Mouth, Throat Denies: throat pain, neck pain or change in hearing Cardiovascular Denies: chest pain, palpitations or dyspnea Respiratory Denies: dyspnea, cough or wheezing Gastrointestinal Reports: abdominal pain and nausea; Denies: vomiting, diarrhea or constipation Genitourinary Denies: dysuria or urinary frequency Musculoskeletal Reports: joint pain (shoulder pain); Denies: back pain, neck pain or muscle weakness Integumentary/Breast Denies: rash or new lesions Neurological Reports: headache(s), dizziness, confusion and difficulty communicating thoughts Endocrine Denies: fatigue or excessive sweating Hematologic/Lymphatic Denies: easy bruising or easy bleeding Allergic/Immunologic Denies: wheezing Exam Mental Status Exam - Psych Appearance adequately groomed, thin and cachectic Attitude cooperative Activity/Motor Behavior MSE activity/motor behavior finding no adventitious movements Speech regular rate Mood OK Affect congruent Thought Process linear, coherent and other Thought Content no hallucinations Suicidal Ideation none; No intent and No plans Homicidal Ideation none Attention intact Concentration intact Sensorium/Orientation awake, alert and oriented x3 Memory/Cognition other (appropriate for stated age) Insight fair Judgement fair Assessment Plan Assessment Plan (1) Tardive dyskinesia: Problem Details: ON MED Plan: - on austedo XR after transitioning from Austedo and doing largely well -Doing fairly well in regards to TD symptoms (2) Major depressive disorder: Problem Details: ON MED Plan: - Largely stable on current medication combination ??? We will continue mirtazapine 15 mg every day -Continue Lexapro as before ???Patient advised of the risk benefits and possib (more content not included)... Normal [facility] MRSA/SAID NASAL SCREENon MRSA+SAID SCRN Reason for Exam: PRE OP MRSA MRSA Negative S. AUREUS S. aureus PositiveA Normal [facility] Comment on above: Performed By: #### M 100.651 ####[facility] [address] [place], [address] MR/PAT.ANEon 05-31-2024 MR/PAT.[facility] Medical Records Department [address] [place] [address] PAT - Anesthesia 05/31/24 1517 MR#: [id number] Acct: [id number] Name: Jose PIEDRA Rep #: [id number] : 1940 84 From: Wilder Mcgovern MD PCP: Dr. Ronak Escalante MD Status:PRE [facility] Y Race: C Location: [facility] Pre-Assessment Diagnosis/Proposed Procedure Planned Operative Procedure(s): (R) RIGHT REVERSE TOTAL SHOULDER ARTHROPLASTY, ERAS Anesthesia History Anesthesia History - manager education: Anesthesia History - manager education Hx Hospitalization No 05/31/24 11:07 Any Problems With Anesthesia No 05/31/24 11:07 Cholinesterase deficiency No 05/31/24 11:07 You/Your Family Experience No 05/31/24 11:07 fever (hyperthermia) with Relationship Recent Exposure to Contagious Disease Does patient have nerve No 05/31/24 11:07 stimulator Patient instructed to have device shut off --Does patient have Pacemaker or ICD? When Was Last Pacemaker Check QUESTION #4 FULL TEXT: You/Your Family Experience fever (hyperthermia) with Anesthesia Last Oral Intake Last Oral intake: Last Oral Intake NPO since Meds taken in AM with sips of water? Meds patient instructed to take am of surgery PONV PONV - manager education: PONV - manager education Female Yes 05/31/24 11:07 HX of Motion Sickness Yes 05/31/24 11:07 HX of N/V After Surgery No 05/31/24 11:07 Non-Smoker Yes 05/31/24 11:07 Duration of Surgery greater Yes 05/31/24 11:07 than 60 minutes Number of Risk Factors 4 05/31/24 11:07 PONV Score Severe Risk 05/31/24 11:07 Height Weight Height Weight: Anesthesia: Height Weight Height 5 ft 2 in 03/18/24 08:30 Respiratory Assessment Respiratory Assessment - manager education: Respiratory Tract Infection Hx - manager education Hx Respiratory Tract Infection No 05/31/24 11:07 STOP Sleep Apnea STOP Sleep Apnea - manager education: STOP Sleep Apnea - manager education Hx Hypertension No 05/31/24 11:07 Hx Sleep Apnea No 05/31/24 11:07 CPAP BIPAP Do you snore loudly (louder Yes 05/31/24 11:07 than talking or can be heard Do you often feel tired/ No 05/31/24 11:07 fatigued/ sleepy during daytime? Has anyone observed you stop No 05/31/24 11:07 breathing during sleep? STOP Results Negative 05/31/24 11:07 QUESTION #5 FULL TEXT : Do you snore loudly (louder than talking or can be heard through closed doors)? 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 Specify any problems Hx of Preganancy in last 3 No 05/31/24 11:07 Months Nurse Filling Out Transfusion SHAHRZAD 05/31/24 11:07 Questions: Date: 05/31/24 05/31/24 11:07 Time: 11:14 05/31/24 11:07 Patient unable to answer at this time (ie. confused, unrespo /Reproduction History /Reproductive History - manager education: /Reproductive Hx- manager education Hx Now No 05/31/24 11:07 Gestational Age (in weeks): EDC: Hx Hx Para Hx Section SAB No 05/31/24 11:07 [facility] Medical History (Updated 05/31/24 @ 11:07 by Waleska Perez) Blindness of right eye Anemia Gastric reflux Chest pain Wears hearing aid Wears contact lenses Post-menopausal Anxiety History of steroid therapy Thyroid disease Insulin dependent diabetes mellitus Ambulates with cane Arthritis High cholesterol Migraine headache TIA (transient ischemic attack) Syncope Difficulty swallowing Dietary restriction History of diverticulitis Non-smoker History of stress test History of rheumatic fever Tardive dyskinesia Major depressive disorder GERD (gastroesophageal reflux disease) Hypertension Hx of emotional problems Home Medications ???Medication ???Instructions ???Recorded ???Last Taken ???Type aspirin 81 mg tablet,delayed 81 mg PO DAILY 02/28/22 Unknown Hi story release (Adult Aspirin Regimen) atorvastatin 40 mg tablet 40 mg PO DAILY 02/28/22 Unknown Hi story hydrochlorothiazide 12.5 mg tablet (more content not included)... Normal [facility] Magnesiumon 05-31-2024 Magnesium [Mass/Vol] 1.7 mg/dL Normal 1.5-2.2 [facility] Comment on above: Performed By: #### L 503.6067, L503.6550, L400.0001 #### [facility] [address] [place], [address] Ferritinon 05-22-2024 Ferritin [Mass/Vol] 22 ng/mL Normal 22-378 [facility] Comment on above: Order Comment: KATHLEEN Garcia ADD POLLO IBC TO BLOOD DRAWN 04/02/24 PER Order Date: 04/02/24 Order Info: [id number] - CMP Order Info: [id number] - LIPID Performed By: #### L 503.6030, L503.6550, L400.0001 #### [facility] [address] [place], [place], [id number] Iron+Iron Binding Capacityon 05-22-2024 Iron [Mass/Vol] 40 ug/dL Low 50-170 [facility] Comment on above: Order Comment: KATHLEEN Garcia ADD POLLO IBC TO BLOOD DRAWN 04/02/24 PER Order Date: 04/02/24 Order Info: [id number] - CMP Order Info: [id number] - LIPID Performed By: #### L 503.6030, L503.6550, L400.0001 #### [facility] [address] [place], [place], [id number] IRON SATURATION 10.0 Low 13-59 [facility] Comment on above: Order Comment: KATHLEEN Garcia ADD POLLO IBC TO BLOOD DRAWN 04/02/24 PER Order Date: 04/02/24 Order Info: [id number] - CMP Order Info: [id number] - LIPID Performed By: #### L 503.6030, L503.6550, L400.0001 #### [facility] [address] [place], [address] TIBC 383 ug/dL Normal 250-450 [facility] Comment on above: Order Comment: KATHLEEN Garcia ADD POLLO IBC TO BLOOD DRAWN 04/02/24 PER Order Date: 04/02/24 Order Info: [id number] - CMP Order Info: [id number] - LIPID Performed By: #### L 503.6030, L503.6550, L400.0001 #### [facility] [address] [place], [address] UIBC 343 ug/dL Normal 228-428 [facility] Comment on above: Order Comment: KATHLEEN Garcia ADD POLLO IBC TO BLOOD DRAWN 04/02/24 PER Order Date: 04/02/24 Order Info: [id number] - CMP Order Info: [id number] - LIPID Performed By: #### L 503.6030, L503.6550, L400.0001 #### [facility] [address] [place], [address] CBC W/Diff, Automatedon 05-08-2024 Absolute Lymph 3.14 X10 3/uL Normal 0.83-4.51 [facility] Comment on above: Order Comment: Order Date: 05/20/24Order Info: [id number] - CBCD Performed By: #### L 503.6550, L801.1541, L506.0250, L503.0105, L503.6030 #### [facility] [address] [place], [address] Absolute Neut 3.8 X10 3/uL Normal 2.0-7.7 [facility] Comment on above: Order Comment: Order Date: 05/20/24Order Info: [id number] - CBCD Performed By: #### L 503.6550, L801.1541, L506.0250, L503.0105, L503.6030 #### [facility] [address] [place], [address] Basophils/100 WBC (Bld) 0.9 % Normal 0-1 [facility] Comment on above: Order Comment: Order Date: 05/20/24Order Info: [id number] - CBCD Performed By: #### L 503.6550, L801.1541, L506.0250, L503.0105, L503.6030 #### [facility] [address] [place], [address] Eosinophils/100 WBC (Bld) 3.8 % Normal 0-5 [facility] Comment on above: Order Comment: Order Date: 05/20/24Order Info: [id number] - CBCD Performed By: #### L 503.6550, L801.1541, L506.0250, L503.0105, L503.6030 #### [facility] [address], [address] Erythrocyte distribution width (RBC) [Ratio] 14.6 % Normal 11.6-14.6 [facility] Comment on above: Order Comment: Order Date: 05/20/24Order Info: [id number] - CBCD Performed By: #### L 503.6550, L801.1541, L506.0250, L503.0105, L503.6030 #### [facility] [address] [place], [place], [phone] ([address]) Hematocrit (Bld) [Volume fraction] 33.9 % Low 37-47 [facility] Comment on above: Order Comment: Order Date: 05/20/24Order Info: [id number] - CBCD Performed By: #### L 503.6550, L801.1541, L506.0250, L503.0105, L503.6030 #### [facility] [address], [address] Hemoglobin (Bld) [Mass/Vol] 10.9 g/dL Low 12.0-15.0 [facility] Comment on above: Order Comment: Order Date: 05/20/24Order Info: [id number] - CBCD Performed By: #### L 503.6550, L801.1541, L506.0250, L503.0105, L503.6030 #### [facility] [address] [place], [address] IG% 0.100 Normal 0.0-0.9 [facility] Comment on above: Order Comment: Order Date: 05/20/24Order Info: [id number] - CBCD Result Comment: IG% - Immature Granulocytes (promyelocytes, myelocytes and metamyelocytes) > 1% indicates that a LEFT SHIFT is Present. Performed By: #### L 503.6550, L801.1541, L506.0250, L503.0105, L503.6030 #### [facility] [address] [place], [address] Lymphocytes/100 WBC (Bld) 39.7 % Normal 19-41 [facility] Comment on above: Order Comment: Order Date: 05/20/24Order Info: [id number] - CBCD Performed By: #### L 503.6550, L801.1541, L506.0250, L503.0105, L503.6030 #### [facility] [address] [place], [address] MCH (RBC) [Entitic mass] 27.3 pg Normal 27.0-32.0 [facility] Comment on above: Order Comment: Order Date: 05/20/24Order Info: [id number]- - CBCD Performed By: #### L 503.6550, L801.1541, L506.0250, L503.0105, L503.6030 #### [facility] [address] [place], [address] MCHC (RBC) [Mass/Vol] 32.2 g/dL Normal 32-36 [facility] Comment on above: Order Comment: Order Date: 05/20/24Order Info: [id number] - CBCD Performed By: #### L 503.6550, L801.1541, L506.0250, L503.0105, L503.6030 #### [facility] [address] [place], [address] MCV (RBC) [Entitic vol] 85.0 fL Normal 81-99 [facility] Comment on above: Order Comment: Order Date: 05/20/24Order Info: [id number] - CBCD Performed By: #### L 503.6550, L801.1541, L506.0250, L503.0105, L503.6030 #### [facility] [address] [place], [address] Monocytes/100 WBC (Bld) 8.1 % Normal 0-10 [facility] Comment on above: Order Comment: Order Date: 05/20/24Order Info: 0184-1 - CBCD Performed By: #### L 503.6550, L801.1541, L506.0250, L503.0105, L503.6030 #### [facility] [address] [place], [address] Neutrophils/100 WBC (Bld) 47.4 % Normal 47-70 [facility] Comment on above: Order Comment: Order Date: 05/20/24Order Info: 0184-1 - CBCD Performed By: #### L 503.6550, L801.1541, L506.0250, L503.0105, L503.6030 #### [facility] [address] [place], [address] Nucleated RBC (Bld) [#/Vol] 0 10*3/uL Normal 0-5 [facility] Comment on above: Order Comment: Order Date: 05/20/24Order Info: 0184-1 - CBCD Performed By: #### L 503.6550, L801.1541, L506.0250, L503.0105, L503.6030 #### [facility] [address] [place], [address] Platelet mean volume (Bld) [Entitic vol] 11.5 fL Normal 6.2-12.0 [facility] Comment on above: Order Comment: Order Date: 05/20/24Order Info: 0184-1 - CBCD Performed By: #### L 503.6550, L801.1541, L506.0250, L503.0105, L503.6030 #### [facility] [address] [place], [address] Platelets (Bld) [#/Vol] 227 10*3/uL Normal 150-450 [facility] Comment on above: Order Comment: Order Date: 05/20/24Order Info: 0184-1 - CBCD Performed By: #### L 503.6550, L801.1541, L506.0250, L503.0105, L503.6030 #### [facility] [address] [place], [id number] RBC (Bld) [#/Vol] 3.99 10*6/uL Low 4.2-5.4 [facility] Comment on above: Order Comment: Order Date: 05/20/24Order Info: 0184-1 - CBCD Performed By: #### L 503.6550, L801.1541, L506.0250, L503.0105, L503.6030 #### [facility] [address] [place], [address] RDW SD 44.8 fl High 35.1-43.9 [facility] Comment on above: Order Comment: Order Date: 05/20/24Order Info: 0184-1 - CBCD Performed By: #### L 503.6550, L801.1541, L506.0250, L503.0105, L503.6030 #### [facility] [address] [place], [address] WBC (Bld) [#/Vol] 7.9 10*3/uL Normal 4.4-11.0 [facility] Comment on above: Order Comment: Order Date: 05/20/24Order Info: 0184-1 - CBCD Performed By: #### L 503.6550, L801.1541, L506.0250, L503.0105, L503.6030 #### [facility] [address] [place], [address] Comprehensive Metabolic Prof ilon 05-20-2024 Albumin [Mass/Vol] 4.2 g/dL Normal 3.4-4.8 [facility] Comment on above: Order Comment: Order Date: 05/20/24Order Info: 0786-1 - CMP Performed By: #### L 503.6550, L801.1541, L506.0250, L503.0105, L503.6030 #### [facility] [address] [place], [address] Albumin/Globulin [Mass ratio] 1.6 {ratio} Normal 0.9-2.4 [facility] Comment on above: Order Comment: Order Date: 05/20/24Order Info: 0786-1 - CMP Performed By: #### L 503.6550, L801.1541, L506.0250, L503.0105, L503.6030 #### [facility] [address] [place], [address] ALK PHOS 74 U/L Normal 35-104 [facility] Comment on above: Order Comment: Order Date: 05/20/24Order Info: 0786-1 - CMP Performed By: #### L 503.6550, L801.1541, L506.0250, L503.0105, L503.6030 #### [facility] [address] [place], [address] ALT [Catalytic activity/Vol] 26 U/L Normal <=34 [facility] Comment on above: Order Comment: Order Date: 05/20/24Order Info: 0786-1 - CMP Performed By: #### L 503.6550, L801.1541, L506.0250, L503.0105, L503.6030 #### [facility] [address] [place], [address] AST [Catalytic activity/Vol] 25 U/L Normal <=31 [facility] Comment on above: Order Comment: Order Date: 05/20/24Order Info: 0786-1 - CMP Performed By: #### L 503.6550, L801.1541, L506.0250, L503.0105, L503.6030 #### [facility] [address] [place], [address] Bilirubin [Mass/Vol] 0.30 mg/dL Normal 0.00-1.30 [facility] Comment on above: Order Comment: Order Date: 05/20/24Order Info: 0786-1 - CMP Performed By: #### L 503.6550, L801.1541, L506.0250, L503.0105, L503.6030 #### [facility] [address] [place], [address] BUN/CRE 16.4 RATIO Normal 10-20 [facility] Comment on above: Order Comment: Order Date: 05/20/24Order Info: 0786-1 - CMP Performed By: #### L 503.6550, L801.1541, L506.0250, L503.0105, L503.6030 #### [facility] [address] [place], [address] Calcium [Mass/Vol] 9.3 mg/dL Normal 7.6-11.0 [facility] Comment on above: Order Comment: Order Date: 05/20/24Order Info: 0786-1 - CMP Performed By: #### L 503.6550, L801.1541, L506.0250, L503.0105, L503.6030 #### [facility] [address] [place], [address] Chloride [Moles/Vol] 100 mmol/L Normal 98-108 [facility] Comment on above: Order Comment: Order Date: 05/20/24Order Info: 0786-1 - CMP Performed By: #### L 503.6550, L801.1541, L506.0250, L503.0105, L503.6030 #### [facility] [address] [place], [address] CO2 [Moles/Vol] 25.4 mmol/L Normal 21.0-32.0 [facility] Comment on above: Order Comment: Order Date: 05/20/24Order Info: 0786-1 - CMP Performed By: #### L 503.6550, L801.1541, L506.0250, L503.0105, L503.6030 #### [facility] [address] [place], [address] Creatinine [Mass/Vol] 0.69 mg/dL Low 0.70-1.20 [facility] Comment on above: Order Comment: Order Date: 05/20/24Order Info: 0786-1 - CMP Performed By: #### L 503.6550, L801.1541, L506.0250, L503.0105, L503.6030 #### [facility] [address] [place], [address] GAP 11 Normal 5-15 [facility] Comment on above: Order Comment: Order Date: 05/20/24Order Info: 0786-1 - CMP Performed By: #### L 503.6550, L801.1541, L506.0250, L503.0105, L503.6030 #### [facility] [address] [place], [address] GFR/1.73 sq M.predicted among non-blacks MDRD (S/P/Bld) [Vol rate/Area] 85 mL/min/{1.73_m2} Normal >60 [facility] Comment on above: Order Comment: Order Date: 05/20/24Order Info: 0786-1 - CMP Result Comment: mL/m in/1.73m2 CKD-EPI Creatinine Equation (2020) Performed By: #### L 503.6550, L801.1541, L506.0250, L503.0105, L503.6030 #### [facility] [address] [place], [address] Globulin (S) [Mass/Vol] 2.6 g/dL Normal 2.2-4.2 [facility] Comment on above: Order Comment: Order Date: 05/20/24Order Info: 0786-1 - CMP Performed By: #### L 503.6550, L801.1541, L506.0250, L503.0105, L503.6030 #### [facility] [address] [place], [address] Glucose [Mass/Vol] 143 mg/dL High 70-99 [facility] Comment on above: Order Comment: Order Date: 05/20/24Order Info: 0786-1 - CMP Performed By: #### L 503.6550, L801.1541, L506.0250, L503.0105, L503.6030 #### [facility] [address] [place], [address] Potassium [Moles/Vol] 3.8 mmol/L Normal 3.3-5.1 [facility] Comment on above: Order Comment: Order Date: 05/20/24Order Info: 0786-1 - CMP Performed By: #### L 503.6550, L801.1541, L506.0250, L503.0105, L503.6030 #### [facility] [address] [place], [address] Sodium [Moles/Vol] 136 mmol/L Normal 133-145 [facility] Comment on above: Order Comment: Order Date: 05/20/24Order Info: 0786-1 - CMP Performed By: #### L 503.6550, L801.1541, L506.0250, L503.0105, L503.6030 #### [facility] [address] [place], [address] T PROT 6.8 g/dL Normal 5.9-8.4 [facility] Comment on above: Order Comment: Order Date: 05/20/24Order Info: 0786-1 - CMP Performed By: #### L 503.6550, L801.1541, L506.0250, L503.0105, L503.6030 #### [facility] [address] [place], [address] Urea nitrogen [Mass/Vol] 11 mg/dL Normal 4-19 [facility] Comment on above: Order Comment: Order Date: 05/20/24Order Info: 0786-1 - CMP Performed By: #### L 503.6550, L801.1541, L506.0250, L503.0105, L503.6030 #### [facility] [address] [place], [address] L506.1001on 05-20-2024 Vitamin D 25-OH 26.9 ng/mL Low 30-100 [facility] Comment on above: Order Comment: KATHLEEN Garcia ADD POLLO IBC TO BLOOD DRAWN 04/02/24 PER Order Date: 04/02/24 Order Info: 0786-1 - CMP Order Info: [id number] - LIPID Result Comment: Yessenia min D Status Deficiency: <20 ng/mL (50nmol/L) Insufficiency: 20-30 ng/mL (50-75 nmol/L) Sufficiency: 30-100 ng/mL (75-250 nmol/L) Toxicity: >100 ng/mL (>250 nmol/L) Performed By: #### L 503.6030, L503.6550, L400.0001 #### [facility] [address] [place], [address] Ferritinon 04-06-2024 Ferritin [Mass/Vol] 12 ng/mL Normal 8-252 [facility] Comment on above: Order Comment: KATHLEEN Garcia ADD POLLO IBC TO BLOOD DRAWN 04/02/24 PER Order Date: 04/02/24 Order Info: 0786-1 - CMP Order Info: [id number] - LIPID Performed By: #### L 503.6030, L503.6550, L400.0001 #### [facility] [address] [place], [address] Iron+Iron Binding Capacityon 04-06-2024 Iron [Mass/Vol] 41 ug/dL Low 50-170 [facility] Comment on above: Order Comment: KATHLEEN Garcia ADD POLLO IBC TO BLOOD DRAWN 04/02/24 PER Order Date: 04/02/24 Order Info: 785-03 - CMP Order Info: - LIPID Performed By: #### L 503.6030, L503.6550, L400.0001 #### [facility] [address] [place], [place], [id number] IRON SATURATION 9.8 Low 15.0-55.0 [facility] Comment on above: Order Comment: KATHLEEN Garcia ADD POLLO IBC TO BLOOD DRAWN 04/02/24 PER Order Date: 04/02/24 Order Info: 785-03 - CMP Order Info: - LIPID Performed By: #### L 503.6030, L503.6550, L400.0001 #### [facility] [place], [place], [id number] TIBC 420 ug/dL Normal 250-450 [facility] Comment on above: Order Comment: KATHLEEN Garcia ADD POLLO IBC TO BLOOD DRAWN 04/02/24 PER Order Date: 04/02/24 Order Info: 785-03 - CMP Order Info: - LIPID Performed By: #### L 503.6030, L503.6550, L400.0001 #### [facility] [place], [place], [address] CBC W/Diff, Automatedon 03-11 Absolute Lymph 2.14 X10 3/uL Normal 0.83-4.51 [facility] Comment on above: Order Comment: KATHLEEN Garcia ADD POLLO IBC TO BLOOD DRAWN 04/02/24 PER Order Date: 04/02/24 Order Info: 785-03 - CMP Order Info: - LIPID Performed By: #### L 503.6030, L503.6550, L400.0001 #### [facility] [address] [place], [address] Absolute Neut 3.7 X10 3/uL Normal 2.0-7.7 [facility] Comment on above: Order Comment: KATHLEEN Garcia ADD POLLO IBC TO BLOOD DRAWN 04/02/24 PER Order Date: 04/02/24 Order Info: 0786-1 - CMP Order Info: [id number] - LIPID Performed By: #### L 503.6030, L503.6550, L400.0001 #### [facility] [address] [place], [place], [id number] Basophils/100 WBC (Bld) 0.9 % Normal 0-1 [facility] Comment on above: Order Comment: KATHLEEN Garcia ADD POLLO IBC TO BLOOD DRAWN 04/02/24 PER Order Date: 04/02/24 Order Info: 0786-1 - CMP Order Info: [id number] - LIPID Performed By: #### L 503.6030, L503.6550, L400.0001 #### [facility] [address] [place], [address] Eosinophils/100 WBC (Bld) 3.2 % Normal 0-5 [facility] Comment on above: Order Comment: KATHLEEN Garcia ADD POLLO IBC TO BLOOD DRAWN 04/02/24 PER Order Date: 04/02/24 Order Info: 0786-1 - CMP Order Info: [id number] - LIPID Performed By: #### L 503.6030, L503.6550, L400.0001 #### [facility] [address] [place], [place], [address] Erythrocyte distribution width (RBC) [Ratio] 14.7 % High 11.6-14.6 [facility] Comment on above: Order Comment: KATHLEEN Garcia ADD POLLO IBC TO BLOOD DRAWN 04/02/24 PER Order Date: 04/02/24 Order Info: 0786-1 - CMP Order Info: [id number] - LIPID Performed By: #### L 503.6030, L503.6550, L400.0001 #### [facility] [address] [place], [address] Hematocrit (Bld) [Volume fraction] 34.4 % Low 37-47 [facility] Comment on above: Order Comment: KATHLEEN Garcia ADD POLLO IBC TO BLOOD DRAWN 04/02/24 PER Order Date: 04/02/24 Order Info: 0786-1 - CMP Order Info: [id number] - LIPID Performed By: #### L 503.6030, L503.6550, L400.0001 #### [facility] [address] [place], [address] Hemoglobin (Bld) [Mass/Vol] 10.6 g/dL Low 12.0-15.0 [facility] Comment on above: Order Comment: KATHLEEN Garcia ADD POLLO IBC TO BLOOD DRAWN 04/02/24 PER Order Date: 04/02/24 Order Info: 0786-1 - CMP Order Info: [id number] - LIPID Performed By: #### L 503.6030, L503.6550, L400.0001 #### [facility] [address] [place], [address] IG% 0.200 Normal 0.0-0.9 [facility] Comment on above: Order Comment: KATHLEEN Garcia ADD POLLO IBC TO BLOOD DRAWN 04/02/24 PER Order Date: 04/02/24 Order Info: 0786-1 - CMP Order Info: [id number] - LIPID Result Comment: IG% - Immature Granulocytes (promyelocytes, myelocytes and metamyelocytes) > 1% indicates that a LEFT SHIFT is Present. Performed By: #### L 503.6030, L503.6550, L400.0001 #### [facility] [address] [place], [address] Lymphocytes/100 WBC (Bld) 32.1 % Normal 19-41 [facility] Comment on above: Order Comment: KATHLEEN Garcia ADD POLLO IBC TO BLOOD DRAWN 04/02/24 PER Order Date: 04/02/24 Order Info: 785-03 - CMP Order Info: [id number] - LIPID Performed By: #### L 5036077, L532.6550, L400.0001 #### [facility] [address] [place], [place], [id number] MCH (RBC) [Entitic mass] 26.8 pg Low 27.0-32.0 [facility] Comment on above: Order Comment: KATHLEEN Garcia ADD POLLO IBC TO BLOOD DRAWN 04/02/24 PER Order Date: 04/02/24 Order Info: 785-03 - CMP Order Info: [id number] - LIPID Performed By: #### L 5036030, L534.6550, L400.0001 #### [facility] [address] [place], [place], [address] MCHC (RBC) [Mass/Vol] 30.8 g/dL Low 32-36 [facility] Comment on above: Order Comment: KATHLEEN Garcia ADD POLLO IBC TO BLOOD DRAWN 04/02/24 PER Order Date: 04/02/24 Order Info: 785-03 - CMP Order Info: [id number] - LIPID Performed By: #### L 503.6030, L573.6550, L400.0001 #### [facility] [address] [place], [place], [address] MCV (RBC) [Entitic vol] 87.1 fL Normal 81-99 [facility] Comment on above: Order Comment: KATHLEEN Garcia ADD POLLO IBC TO BLOOD DRAWN 04/02/24 PER Order Date: 04/02/24 Order Info: 07 - CMP Order Info: [id number] - LIPID Performed By: #### L 5036011, L526.6550, L400.0001 #### [facility] [address] [place], [place], [id number] Monocytes/100 WBC (Bld) 8.9 % Normal 0-10 [facility] Comment on above: Order Comment: KATHLEEN Garcia ADD POLLO IBC TO BLOOD DRAWN 04/02/24 PER Order Date: 04/02/24 Order Info: 0786 - [facility] Order Info: - LIPID Performed By: #### L 503.6030, L503.6550, L400.0001 #### [facility] [address] [place], [address] Neutrophils/100 WBC (Bld) 54.7 % Normal 47-70 [facility] Comment on above: Order Comment: KATHLEEN Garcia ADD POLLO IBC TO BLOOD DRAWN 04/02/24 PER Order Date: 04/02/24 Order Info: 785-03 - [facility] Order Info: - LIPID Performed By: #### L 503.6030, L503.6550, L400.0001 #### [facility] [address] [place], [address] Nucleated RBC (Bld) [#/Vol] 0 10*3/uL Normal 0-5 [facility] Comment on above: Order Comment: KATHLEEN Garcia ADD POLLO IBC TO BLOOD DRAWN 04/02/24 PER Order Date: 04/02/24 Order Info: 07 - [facility] Order Info: - LIPID Performed By: #### L 503.6030, L503.6550, L400.0001 #### [facility] [address] [place], [address] Platelet mean volume (Bld) [Entitic vol] 11.5 fL Normal 6.2-12.0 [facility] Comment on above: Order Comment: KATHLEEN Garcia ADD POLLO IBC TO BLOOD DRAWN 04/02/24 PER Order Date: 04/02/24 Order Info: 0786 - [facility] Order Info: [id number] - LIPID Performed By: #### L 503.6030, L503.6550, L400.0001 #### [facility] [address] [place], [place], [address] Platelets (Bld) [#/Vol] 217 10*3/uL Normal 150-450 [facility] Comment on above: Order Comment: KATHLEEN Garcia ADD POLLO IBC TO BLOOD DRAWN 04/02/24 PER Order Date: 04/02/24 Order Info: 0786-1 - CMP Order Info: [id number] - LIPID Performed By: #### L 503.6030, L503.6550, L400.0001 #### [facility] [address] [place], [address] RBC (Bld) [#/Vol] 3.95 10*6/uL Low 4.2-5.4 [facility] Comment on above: Order Comment: KATHLEEN Garcia ADD POLLO IBC TO BLOOD DRAWN 04/02/24 PER Order Date: 04/02/24 Order Info: 07 - CMP Order Info: [id number] - LIPID Performed By: #### L 503.6030, L503.6550, L400.0001 #### [facility] [address] [place], [place], [id number] RDW SD 47.5 fl High 35.1-43.9 [facility] Comment on above: Order Comment: KATHLEEN Garcia ADD POLLO IBC TO BLOOD DRAWN 04/02/24 PER Order Date: 04/02/24 Order Info: 0786- - CMP Order Info: [id number] - LIPID Performed By: #### L 503.6030, L503.6550, L400.0001 #### [facility] [address] [place], [address] WBC (Bld) [#/Vol] 6.7 10*3/uL Normal 4.4-11.0 [facility] Comment on above: Order Comment: KATHLEEN Garcia ADD POLLO IBC TO BLOOD DRAWN 04/02/24 PER Order Date: 04/02/24 Order Info: 0786- - CMP Order Info: [id number] - LIPID Performed By: #### L 503.6030, L503.6550, L400.0001 #### [facility] [address] [place], [address] Comprehensive Metabolic Prof ilon 04-02-2024 Albumin [Mass/Vol] 3.4 g/dL Normal 3.2-5.0 [facility] Comment on above: Order Comment: KATHLEEN Garcia ADD POLLO IBC TO BLOOD DRAWN 04/02/24 PER Order Date: 04/02/24 Order Info: 0786-1 - CMP Order Info: [id number] - LIPID Performed By: #### L 503.6030, L503.6550, L400.0001 #### [facility] [address] [place], [address] Albumin/Globulin [Mass ratio] 1.0 {ratio} Normal 0.9-2.4 [facility] Comment on above: Order Comment: KATHLEEN Garcia ADD POLLO IBC TO BLOOD DRAWN 04/02/24 PER Order Date: 04/02/24 Order Info: 0786-1 - CMP Order Info: [id number] - LIPID Performed By: #### L 503.6030, L503.6550, L400.0001 #### [facility] [address] [place], [address] ALK P 137 U/L High 45-117 [facility] Comment on above: Order Comment: KATHLEEN Garcia ADD POLLO IBC TO BLOOD DRAWN 04/02/24 PER Order Date: 04/02/24 Order Info: 0786-1 - CMP Order Info: [id number] - LIPID Performed By: #### L 503.6030, L503.6550, L400.0001 #### [facility] [address] [place], [address] ALT [Catalytic activity/Vol] 28 U/L Normal 13-56 [facility] Comment on above: Order Comment: KATHLEEN Garcia ADD POLLO IBC TO BLOOD DRAWN 04/02/24 PER Order Date: 04/02/24 Order Info: 07 - CMP Order Info: [id number] - LIPID Performed By: #### L 503.6030, L501.6550, L400.0001 #### [facility] [address] [place], [place], [id number] AST [Catalytic activity/Vol] 17 U/L Normal 15-37 [facility] Comment on above: Order Comment: KATHLEEN Gracia ADD POLLO IBC TO BLOOD DRAWN 04/02/24 PER Order Date: 04/02/24 Order Info: 785-03 - CMP Order Info: [id number] - LIPID Performed By: #### L 503.6030, L506.6550, L400.0001 #### [facility] [address] [place], [place], [address] Bilirubin [Mass/Vol] 0.40 mg/dL Normal 0.20-1.00 [facility] Comment on above: Order Comment: KATHLEEN Garcia ADD POLLO IBC TO BLOOD DRAWN 04/02/24 PER Order Date: 04/02/24 Order Info: 785-03 - CMP Order Info: [id number] - LIPID Result Comment: For patients on eltrombopag therapy, use of Dimension Frazer TBIL is not recommended. Performed By: #### L 503.6030, L559.6550, L400.0001 #### [facility] [address] [place], [place], [id number] BUN/CRE 18.7 RATIO Normal 10-20 [facility] Comment on above: Order Comment: KATHLEEN Garcia ADD POLLO IBC TO BLOOD DRAWN 04/02/24 PER Order Date: 04/02/24 Order Info: 07 - CMP Order Info: [id number] - LIPID Performed By: #### L 503.6030, [id number], [id number] #### [facility] [address] [place], [place], [id number] CA,Total 8.8 mg/dL Normal 8.5-10.1 [facility] Comment on above: Order Comment: KATHLEEN Garcia ADD POLLO IBC TO BLOOD DRAWN 04/02/24 PER Order Date: 04/02/24 Order Info: 785-03 - CMP Order Info: [id number] - LIPID Performed By: #### L 503.6030, L542.6550, L400.0001 #### [facility] [address] [place], [place], [address] Chloride [Moles/Vol] 103 mmol/L Normal 98-107 [facility] Comment on above: Order Comment: KATHLEEN Garcia ADD POLLO IBC TO BLOOD DRAWN 04/02/24 PER Order Date: 04/02/24 Order Info: 785-03 - CMP Order Info: [id number] - LIPID Performed By: #### L 503.6030, L56550, L400.0001 #### [facility] [address] [place], [address] CO2 [Moles/Vol] 25.0 mmol/L Normal 21.0-32.0 [facility] Comment on above: Order Comment: KATHLEEN Garcia ADD POLLO IBC TO BLOOD DRAWN 04/02/24 PER Order Date: 04/02/24 Order Info: 785-03 - CMP Order Info: [id number] - LIPID Performed By: #### L 503.6030, L534.6550, L400.0001 #### [facility] [address] [place], [place], [address] Creatinine [Mass/Vol] 0.70 mg/dL Normal 0.55-1.02 [facility] Comment on above: Order Comment: KATHLEEN Garcia ADD POLLO IBC TO BLOOD DRAWN 04/02/24 PER Order Date: 04/02/24 Order Info: 07 - CMP Order Info: [id number] - LIPID Result Comment: The validity of the calculated GFR GFRAA in patients over 70 years has not been determined. Clinical correlation is essential. Performed By: #### L 503.6030, L503.6550, L400.0001 #### [facility] [address] [place], [address] EST GFR - AA 103 mL/min Normal >60 [facility] Comment on above: Order Comment: KATHLEEN Garcia ADD POLLO IBC TO BLOOD DRAWN 04/02/24 PER Order Date: 04/02/24 Order Info: 07 - CMP Order Info: [id number] - LIPID Result Comment: Afri can [place] GFR Calc Performed By: #### L 503.6030, L503.6550, L400.0001 #### [facility] [address] [place], [address] GAP 9 Normal 5-15 [facility] Comment on above: Order Comment: KATHLEEN Garcia ADD POLLO IBC TO BLOOD DRAWN 04/02/24 PER Order Date: 04/02/24 Order Info: 07 - CMP Order Info: [id number] - LIPID Performed By: #### L 503.6030, L503.6550, L400.0001 #### [facility] [address] [place], [address] GFR/1.73 sq M.predicted among non-blacks MDRD (S/P/Bld) [Vol rate/Area] 85 mL/min/{1.73_m2} Normal >60 [facility] Comment on above: Order Comment: KATHLEEN Garcia ADD POLLO IBC TO BLOOD DRAWN 04/02/24 PER Order Date: 04/02/24 Order Info: 0786- - CMP Order Info: [id number] - LIPID Result Comment: Non- GFR Calc Performed By: #### L 503.6030, [id number], [id number] #### [facility] [address] [place], [place], [id number] Globulin (S) [Mass/Vol] 3.5 g/dL Normal 2.2-4.2 [facility] Comment on above: Order Comment: KATHLEEN Garcia ADD POLLO IBC TO BLOOD DRAWN 04/02/24 PER Order Date: 04/02/24 Order Info: 07 - CMP Order Info: [id number] - LIPID Performed By: #### L 503.6030, L503.6550, L400.0001 #### [facility] [address] [place], [address] Glucose [Mass/Vol] 174 mg/dL High 74-106 [facility] Comment on above: Order Comment: KATHLEEN Garcia ADD POLLO IBC TO BLOOD DRAWN 04/02/24 PER Order Date: 04/02/24 Order Info: [id number] - CMP Order Info: [id number] - LIPID Result Comment: Fast ing Glucose result greater than or equal to 126 mg/dL suggests DIABETES MELLITUS per A.D.A. criteria. Performed By: #### L 503.6030, L503.6550, L400.0001 #### [facility] [address] [place], [address] Potassium [Moles/Vol] 3.8 mmol/L Normal 3.5-5.1 [facility] Comment on above: Order Comment: KATHLEEN Garcia ADD POLLO IBC TO BLOOD DRAWN 04/02/24 PER Order Date: 04/02/24 Order Info: [id number] - CMP Order Info: [id number] - LIPID Performed By: #### L 503.6030, L503.6550, L400.0001 #### [facility] [address] [place], [address] Sodium [Moles/Vol] 137 mmol/L Normal 136-145 [facility] Comment on above: Order Comment: KATHLEEN Garcia ADD POLLO IBC TO BLOOD DRAWN 04/02/24 PER Order Date: 04/02/24 Order Info: [id number] - CMP Order Info: [id number] - LIPID Performed By: #### L 503.6030, L503.6550, L400.0001 #### [facility] [address] [place], [address] T PROT 6.9 g/dL Normal 6.4-8.2 [facility] Comment on above: Order Comment: KATHLEEN Garcia ADD POLLO IBC TO BLOOD DRAWN 04/02/24 PER Order Date: 04/02/24 Order Info: [id number] - [facility] Order Info: [id number] - LIPID Performed By: #### L 503.6030, L503.6550, L400.0001 #### [facility] [address] [place], [place], [address] Urea nitrogen [Mass/Vol] 13 mg/dL Normal 7-18 [facility] Comment on above: Order Comment: KATHLEEN Garcia ADD POLLO IBC TO BLOOD DRAWN 04/02/24 PER Order Date: 04/02/24 Order Info: [id number] - [facility] Order Info: [id number] - LIPID Performed By: #### L 503.6030, L503.6550, L400.0001 #### [facility] [address] [place], [place], [address] Lipid Profileon 04-02-2024 Cholesterol [Mass/Vol] 139 mg/dL Normal 200 [facility] Comment on above: Order Comment: KATHLEEN Garcia ADD POLLO IBC TO BLOOD DRAWN 04/02/24 PER Order Date: 04/02/24 Order Info: [id number] - [facility] Order Info: [id number] - LIPID Result Comment: <200 mg/dL Desirable 200-240 mg/dL Borderline >240 mg/dL High Risk Performed By: #### L 503.6030, [id number], L400.0001 #### [facility] [address] [place], [place], [address] Cholesterol in HDL [Mass/Vol] 65 mg/dL Normal [facility] Comment on above: Order Comment: KATHLEEN Garcia ADD POLLO IBC TO BLOOD DRAWN 04/02/24 PER Order Date: 04/02/24 Order Info: [id number] - CMP Order Info: [id number] - LIPID Result Comment: The drugs N-Acetylcysteine and Metamizole may falsely depress this assay. Reference Range HDL <40 mg/dL Low HDL Cholesterol HDL >or= 60 mg/dL High HDL Cholesterol Performed By: #### L 503.6030, L503.6550, L400.0001 #### [facility] [address] [place], [address] Cholesterol in LDL [Mass/Vol] 49 mg/dL Normal 0-130 [facility] Comment on above: Order Comment: KATHLEEN Garcia ADD POLLO IBC TO BLOOD DRAWN 04/02/24 PER Order Date: 04/02/24 Order Info: [id number] - CMP Order Info: [id number] - LIPID Performed By: #### L 503.6030, L503.6550, L400.0001 #### [facility] [address] [place], [address] Cholesterol in VLDL [Mass/Vol] 25 mg/dL Normal 5-40 [facility] Comment on above: Order Comment: KATHLEEN Garcia ADD POLLO IBC TO BLOOD DRAWN 04/02/24 PER Order Date: 04/02/24 Order Info: [id number] - CMP Order Info: [id number] - LIPID Performed By: #### L 503.6030, L503.6550, L400.0001 #### [facility] [address] [place], [address] Triglyceride [Mass/Vol] 124 mg/dL Normal [facility] Comment on above: Order Comment: KATHLEEN Garcia ADD POLLO IBC TO BLOOD DRAWN 04/02/24 PER Order Date: 04/02/24 Order Info: [id number] - CMP Order Info: [id number] - LIPID Result Comment: The drugs N-Acetylcysteine and Metamizole may falsely depress this assay. Serum Triglycerides Reference Interval Normal <150 mg/dL Borderline high 150 - 199 mg/dL High 200 - 499 mg/dL Very High > or = 500 mg/dL Performed By: #### L 503.6030, L503.6550, L400.0001 #### [facility] [address] [place], [address] Microalb:Creat Ratio,Random URon 04-02-2024 Creatinine [Mass/Vol] 83.10 mg/dL Normal NO RANGE EST. [facility] Comment on above: Order Comment: KATHLEEN Garcia ADD POLLO IBC TO BLOOD DRAWN 04/02/24 PER Order Date: 04/02/24 Order Info: [id number] - [facility] Order Info: [id number] - LIPID Performed By: #### L 503.6030, L503.6550, L400.0001 #### [facility] [address] [place], [address] MALB:CRE 31.9 mg/g CRE High <30 mg/g CRE [facility] Comment on above: Order Comment: KATHLEEN Garcia ADD POLLO IBC TO BLOOD DRAWN 04/02/24 PER Order Date: 04/02/24 Order Info: [id number] - [facility] Order Info: [id number] - LIPID Performed By: #### L 503.6030, L503.6550, L400.0001 #### [facility] [address] [place], [address] MICROALBUMIN,UR 26.5 mg/L Normal NO RANGE EST. [facility] Comment on above: Order Comment: KATHLEEN Garcia ADD POLLO IBC TO BLOOD DRAWN 04/02/24 PER Order Date: 04/02/24 Order Info: [id number] - [facility] Order Info: [id number] - LIPID Performed By: #### L 503.6030, L503.6550, L400.0001 #### [facility] [address] [place], [address] Urinalysis, Completeon 04-02 BACTERIA 0 SEEN Normal None Seen [facility] Comment on above: Order Comment: CLEAN CATCH Performed By: #### L 503.6030, L503.6550, L400.0001 #### [facility] [address] [place], [address] EPI,SQUAMOUS 0 SEEN Normal 5-10 [facility] Comment on above: Order Comment: CLEAN CATCH Performed By: #### L 503.6030, L503.6550, L400.0001 #### [facility] [address] [place], [address] Mucus Ql (Urine sed) 0 SEEN Normal [facility] Comment on above: Order Comment: CLEAN CATCH Performed By: #### L 503.6030, L503.6550, L400.0001 #### [facility] [address] [place], [address] RBC 0 SEEN Normal 0-5 [facility] Comment on above: Order Comment: CLEAN CATCH Performed By: #### L 503.6030, L503.6550, L400.0001 #### [facility] [address] [place], [address] WBC 0 SEEN Normal 0-5 [facility] Comment on above: Order Comment: CLEAN CATCH Performed By: #### L 503.6030, L503.6550, L400.0001 #### [facility] [address] [place], [address] Vitamin D,25 Hydroxyon 04-02 Vitamin D 25-OH 28.4 ng/mL Normal [facility] Comment on above: Order Comment: KATHLEEN DICKENS POLLO IBC TO BLOOD DRAWN 04/02/24 PER Order Date: 04/02/24 Order Info: [id number] - CMP Order Info: [id number] - LIPID Result Comment: Yessenia min D 25(OH) Status Range Deficiency <20 ng/mL (50nmol/L) Insufficiency 20 - 30 ng/mL (50 - 75 nmol/L) Sufficiency 30 - 100 ng/mL (75 - 250 nmol/L) Toxicity >100 ng/mL (>250 nmol/L) Performed By: #### L 503.6030, L503.6550, L400.0001 #### [facility] [address] [place], [address] MR/BMS.BPon 03-18-2024 MR/BMS.BP [address], [address] [place] [address] OFFICE VISIT Date of Service: 03/18/24 MR#: [id number] Acct: [id number] Name: Jose PIEDRA Rep #: [id number] : 1940 Provider: Dr. Sheridan Lima se, DO Age/Sex: 84/F Location: [facility] Status: Signed Intake Vital Signs 01/22/24 07:53 03/18/24 08:30 Height 5 ft 2 in 5 ft 2 in BP 168/82 H 152/80 H Blood Pressure Location Lt brachial Lt brachial Position Sitting Sitting Respiration 16 18 Pulse 78 77 Pulse Source Monitor Monitor BP Intake Visit Reasons: follow up Accompanied by: Allergies codeine Allergy (Verified 03/18/24 08:34) Rash morphine Allergy (Verified 03/18/24 08:34) Rash Medications ???Medication ???Instructions ???Recorded ???Confirmed ???Type aspirin 81 mg tablet,delayed 81 mg PO DAILY 02/28/22 03/18/24 History release (Adult Aspirin Regimen) atorvastatin 40 mg tablet 40 mg PO DAILY 02/28/22 03/18/24 History hydrochlorothiazide 12.5 mg tablet 12.5 mg PO DAILY BP 02/28/22 03/18/24 History insulin glargine 100 unit/mL (3 18 unit subcut QHS 02/28/22 03/18/24 History mL) subcutaneous pen (Lantus Solostar U-100 Insulin) timolol maleate 0.5 % eye drops 1 drp ophthalmic (eye) BID 02/28/22 03/18/24 History lisinopril 20 mg tablet 20 mg PO QDAY 07/10/23 03/18/24 History cholecalciferol (vitamin D3) 25 25 mcg PO QHS 12/08/23 03/18/24 History mcg (1,000 unit) capsule (Vitamin D3) cinnamon bark 500 mg capsule 1,000 mg PO DAILY 12/08/23 03/18/24 History (Cinnamon) naproxen sodium 220 mg capsule 220 mg PO BID PRN pain 12/08/23 03/18/24 History (Aleve) omeprazole 20 mg capsule,delayed 20 mg PO DAILY 12/08/23 03/18/24 History release escitalopram oxalate 10 mg tablet 10 mg PO DAILY #90 tabs 03/18/24 03/18/24 Rx mirtazapine 15 mg tablet 15 mg PO QHS #90 tabs 03/18/24 03/18/24 Rx Have you fallen in the past year?: Yes PFSH Medical History (Updated 12/08/23 @ 11:26 by Kristi Weldon) Wears hearing aid Wears contact lenses Post-menopausal Anxiety History of steroid therapy Thyroid disease Insulin dependent diabetes mellitus Ambulates with cane Arthritis High cholesterol Migraine headache TIA (transient ischemic attack) Syncope Difficulty swallowing Dietary restriction History of diverticulitis Non-smoker History of edema History of stress test History of rheumatic fever Tardive dyskinesia Major depressive disorder GERD (gastroesophageal reflux disease) Hypertension Hx of emotional problems Surgical History (Updated 12/08/23 @ 11:26 by Kristi Weldon) History of cornea transplant Hx of left cataract extraction Hx of right cataract extraction History of esophagogastroduodenoscopy (EGD) Hx of colonoscopy History of carpal tunnel surgery of right wrist History of carpal tunnel surgery of left wrist History of knee replacement H/O repair of rotator cuff H/O: hysterectomy H/O thyroidectomy Family History Other Cancer Diabetes Social History Smoking Status: Never smoker alcohol intake: never substance use type: does not use HPI History of Present Illness History provided by: patient HPI: Karri Piedra is a 84 year old female who presents today for follow up evaluation. Does present with her today. Patient reports to having two falls in the last 2 weeks, but believes this is secondary to her insulin use and hypoglycemia. Denies hitting head or any loss of consciousness. Was encouraged to carry cell phone with her at all times or consider something like LifeAlert she is alone. Will be following back with Dr. Escalante regarding this in the past. Has been aggressively trying to lower A1c so that she can have surgery. Had another cortisone shot in recent past, but does have some persistent shoulder pain. Mood has been fairly good. Admits to having some good holidays with family. Sleep has been doing largely well. Tardive symptoms have been largely well controlled. Does feel like she has some more saliva in recent past and seems to feel like she has to spit up a lot more. Review of Systems Constitutional Denies: fever(s), chills or fatigue Eyes Denies: change in vision or blurry vision Ears, Nose, Mouth, Throat Denies: throat pain, neck pain or change in hearing Cardiovascular Denies: chest pain, palpitations or dyspnea Respiratory Denies: dyspnea, cough or wheezing Gastrointestinal Reports: abdominal pain and nausea; Denies: vomiting, diarrhea or constipation Genitourinary Denies: dysuria or urinary frequency Musculoskeletal Denies: back pain, neck pain, joint pain or muscle weakness Integumentary/Breast Denies: rash or new lesions Neurological Reports (more content not included)... Normal [facility] MR/BMS.BPon 01-22-2024 MR/BMS.[address], [address] [place] [address] OFFICE VISIT Date of Service: 01/22/24 MR#: [id number] Acct: [id number] Name: Jose PIEDRA Rep #: [id number] : 1940 Provider: Dr. Sheridan Lima se, DO Age/Sex: 83/F Location: [facility] Status: Signed Intake Vital Signs 09/22/23 09:43 01/22/24 07:53 Height 5 ft 2 in 5 ft 2 in BP 168/82 H Blood Pressure Location Lt brachial Position Sitting Respiration 16 Pulse 78 Pulse Source Monitor BP Intake Visit Reasons: 3 M FU Accompanied by: Allergies codeine Allergy (Verified 01/22/24 07:57) Rash morphine Allergy (Verified 01/22/24 07:57) Rash Medications ???Medication ???Instructions ???Recorded ???Confirmed ???Type aspirin 81 mg tablet,delayed 81 mg PO DAILY 02/28/22 01/22/24 History release (Adult Aspirin Regimen) atorvastatin 40 mg tablet 40 mg PO DAILY 02/28/22 01/22/24 History deutetrabenazine 6 mg tablet 9 mg PO BID 02/28/22 01/22/24 History (Austedo) hydrochlorothiazide 12.5 mg tablet 12.5 mg PO DAILY BP 02/28/22 01/22/24 History insulin glargine 100 unit/mL (3 18 unit subcut QHS 02/28/22 01/22/24 History mL) subcutaneous pen (Lantus Solostar U-100 Insulin) timolol maleate 0.5 % eye drops 1 drp ophthalmic (eye) BID 02/28/22 01/22/24 History lisinopril 20 mg tablet 20 mg PO QDAY 07/10/23 01/22/24 History cholecalciferol (vitamin D3) 25 25 mcg PO QHS 12/08/23 01/22/24 History mcg (1,000 unit) capsule (Vitamin D3) cinnamon bark 500 mg capsule 1,000 mg PO DAILY 12/08/23 01/22/24 History (Cinnamon) naproxen sodium 220 mg capsule 220 mg PO BID PRN pain 12/08/23 12/08/23 History (Aleve) omeprazole 20 mg capsule,delayed 20 mg PO DAILY 12/08/23 01/22/24 History release escitalopram oxalate 10 mg tablet 10 mg PO DAILY #90 tabs 01/22/24 01/22/24 Rx mirtazapine 15 mg tablet 15 mg PO QHS #90 tabs 01/22/24 01/22/24 Rx Have you fallen in the past year?: No PFSH Medical History (Updated 12/08/23 @ 11:26 by Kristi Weldon) Wears hearing aid Wears contact lenses Post-menopausal Anxiety History of steroid therapy Thyroid disease Insulin dependent diabetes mellitus Ambulates with cane Arthritis High cholesterol Migraine headache TIA (transient ischemic attack) Syncope Difficulty swallowing Dietary restriction History of diverticulitis Non-smoker History of edema History of stress test History of rheumatic fever Tardive dyskinesia Major depressive disorder GERD (gastroesophageal reflux disease) Hypertension Hx of emotional problems Surgical History (Updated 12/08/23 @ 11:26 by Kristi Weldon) History of cornea transplant Hx of left cataract extraction Hx of right cataract extraction History of esophagogastroduodenoscopy (EGD) Hx of colonoscopy History of carpal tunnel surgery of right wrist History of carpal tunnel surgery of left wrist History of knee replacement H/O repair of rotator cuff H/O: hysterectomy H/O thyroidectomy Family History Other Cancer Diabetes Social History Smoking Status: Never smoker alcohol intake: never substance use type: does not use HPI History of Present Illness History provided by: patient HPI: Karri Piedra is a 83 year old female who presents today for follow up evaluation. Does present with her today. Patient reports that she is awaiting her shoulder surgery but her A1c was too high so has to get down first. Set to follow up with Dr. Escalante today for follow up regarding this. Has been trying to her improve her diet. Reports that mood has been doing largely good. Does get agitated fairly easily, and does feel like she treats him somewhat better in recent past. Feels like people in general bother her more than in the past. Has not been going to [facility] anymore because she doesn't feel comfortable there. Sleep has been largely good. Denies SI/HI or AVH. Feels like medications are working largely well. Occasionally still has some itching episodes, but it has improved. Does feels like she drools more. Has continued on Austedo with fair to good results. Does feel like her symptoms are worse when she lays down at night. Sami recently had a 98% blockage in his heart and nearly had open heart surgery. Review of Systems Constitutional Denies: fever(s), chills or fatigue Eyes Denies: change in vision or blurry vision Ears, Nose, Mouth, Throat Denies: throat pain, neck pain or change in hearing Cardiovascular Denies: chest pain, palpitations or dyspnea Respiratory Denies: dyspnea, cough or wheezing Gastrointestinal Reports: abdominal pain and nausea; Denies: vomiting, diarrhea or constipation Genitourinary Denies: dysuria or (more content not included)... Normal [facility] Miscellaneous Lab Procedureo n 12-19-2023 [facility] LAB TEST Normal [facility] Comment on above: Order Comment: [id number] WB RF LAV(EDTA)[id number] RETICULOCYTE COUNT WB RF LAV(EDTA) Result Comment: TEST RESULTS LIMITS Reticulocyte Count 1.5 % 0.6-2.6 TESTING PERFORMED AT [facility]. ORIGINAL REPORT ON FILE IN LAB CONTAINS ADDITIONAL TEST SITE INFORMATION. Performed By: #### L 503.6550, L801.1541, L506.0250, L503.0105, L503.6030 ####[facility] [address] [place], [address] Ferritinon 12-16-2023 Ferritin [Mass/Vol] 22 ng/mL Normal 8-252 [facility] Comment on above: Order Comment: N Performed By: #### L 503.6550, L801.1541, L506.0250, L503.0105, L503.6030 #### [facility] [address] [place], [address] Folates, (Folic Acid)on 10-0 FOLATES 97.40 ng/mL High 3.1-55.4 [facility] Comment on above: Order Comment: N Performed By: #### L 503.6550, L801.1541, L506.0250, L503.0105, L503.6030 #### [facility] [address] [place], [address] Iron+Iron Binding Capacityon 12-16-2023 Iron [Mass/Vol] 114 ug/dL Normal 50-170 [facility] Comment on above: Order Comment: N Performed By: #### L 503.6550, L801.1541, L506.0250, L503.0105, L503.6030 #### [facility] [address] [place], [address] IRON SATURATION 29.1 Normal 15.0-55.0 [facility] Comment on above: Order Comment: N Performed By: #### L 503.6550, L801.1541, L506.0250, L503.0105, L503.6030 #### [facility] [address] [place], [address] TIBC 392 ug/dL Normal 250-450 [facility] Comment on above: Order Comment: N Performed By: #### L 503.6550, L801.1541, L506.0250, L503.0105, L503.6030 #### [facility] [address] [place], [address] Vitamin B12on 12-16-2023 Cobalamin (Vitamin B12) [Mass/Vol] 478 pg/mL Normal 211-911 [facility] Comment on above: Performed By: #### L 503.6550, L801.1541, L506.0250, L503.0105, L503.6030 #### [facility] [address] [place], [address] MRSA/SAID NASAL SCREENon MRSA+SAID SCRN Reason for Exam: PRE OP MRSA MRSA Negative S. AUREUS S. aureus Negative Normal [facility] Comment on above: Performed By: #### L 501.9985, M100.651, L100.0100, L500.2500, L501.1800 ####[facility] [address] [place], [address] 12 Lead EKGon 12-12-2023 12 Lead EKG [facility] Cardiovascular Services [address] [place] [address] 12 Lead EKG 12/12/23 1214 MR#: [id number] Acct: [id number] Name: Jose PIEDRA Rep #: [id number] : 1940 83 From: Scooter Reyes MD Attending Dr: Dr. Sheridan Nowak MD Status: PRE [facility] Ordering Dr: Sheridan Nowak MD Date: 12/12/23 Location: [facility] Sex: F C Admitted: Test Reason : PREOP Blood Pressure : / mmHG Vent. Rate : 061 BPM Atrial Rate : 061 BPM P-R Int : 176 ms QRS Dur : 066 ms QT Int : 392 ms P-R-T Axes : 081 -12 013 degrees QTc Int : 394 ms Normal sinus rhythm Inferior infarct (cited on or before 01-FEB-2023) Abnormal ECG Confirmed by JESSEE العلي, SCOOTER ([id number]), online editor JOEY SANCHEZ ([id number]) on 12/16/2023 10:02:41 AM Referred By: Sheridan Nowak Confirmed By:SCOOTER REYES MD 12/16/23 1002 Date Scooter Reyes MD CC: Dr. Ronak Escalante MD; Dr. Sheridan Nowak MD Signed Normal [facility] Albumin, Serumon 12-12-2023 Albumin [Mass/Vol] 3.9 g/dL Normal 3.2-5.0 [facility] Comment on above: Performed By: #### L 501.9985, M100.651, L100.0100, L500.2500, L501.1800 ####[facility] [address] [place], [address] Basic Metabolic Profile (BMP )on 12-12-2023 BUN/CRE 14.1 RATIO Normal 10-20 [facility] Comment on above: Performed By: #### L 501.9985, M100.651, L100.0100, L500.2500, L501.1800 ####[facility] [address] [place], [address] CA,Total 9.5 mg/dL Normal 8.5-10.1 [facility] Comment on above: Performed By: #### L 501.9985, M100.651, L100.0100, L500.2500, L501.1800 ####[facility] [address] [place], [address] Chloride [Moles/Vol] 99 mmol/L Normal 98-107 [facility] Comment on above: Performed By: #### L 501.9985, M100.651, L100.0100, L500.2500, L501.1800 ####[facility] [address] [place], [address] CO2 [Moles/Vol] 30.0 mmol/L Normal 21.0-32.0 [facility] Comment on above: Performed By: #### L 501.9985, M100.651, L100.0100, L500.2500, L501.1800 ####[facility] [address] [place], [address] Creatinine [Mass/Vol] 0.92 mg/dL Normal 0.55-1.02 [facility] Comment on above: Result Comment: The validity of the calculated GFR GFRAA in patients over 70 years has not been determined. Clinical correlation is essential. Performed By: #### L 501.9985, M100.651, L100.0100, L500.2500, L501.1800 ####[facility] [address] [place], [address] EST GFR - AA 75 mL/min Normal >60 [facility] Comment on above: Result Comment: Afri can [place] GFR Calc Performed By: #### L 501.9985, M100.651, L100.0100, L500.2500, L501.1800 ####[facility] [address] [place], [address] GAP 6 Normal 5-15 [facility] Comment on above: Performed By: #### L 501.9985, M100.651, L100.0100, L500.2500, L501.1800 ####[facility] [address] [place], [address] GFR/1.73 sq M.predicted among non-blacks MDRD (S/P/Bld) [Vol rate/Area] 62 mL/min/{1.73_m2} Normal >60 [facility] Comment on above: Result Comment: Non- GFR Calc Performed By: #### L 501.9985, M100.651, L100.0100, L500.2500, L501.1800 ####[facility] [address] [place], [address] Glucose [Mass/Vol] 297 mg/dL High 74-106 [facility] Comment on above: Result Comment: Gluc ose result greater than or equal to 200 mg/dL suggests DIABETES MELLITUS per A.D.A. criteria. Performed By: #### L 501.9985, M100.651, L100.0100, L500.2500, L501.1800 ####[facility] [address] [place], [address] Potassium [Moles/Vol] 4.1 mmol/L Normal 3.5-5.1 [facility] Comment on above: Performed By: #### L 501.9985, M100.651, L100.0100, L500.2500, L501.1800 ####[facility] [address] [place], [address] Sodium [Moles/Vol] 135 mmol/L Low 136-145 [facility] Comment on above: Performed By: #### L 501.9985, M100.651, L100.0100, L500.2500, L501.1800 ####[facility] [address] [place], [address] Urea nitrogen [Mass/Vol] 13 mg/dL Normal 7-18 [facility] Comment on above: Performed By: #### L 501.9985, M100.651, L100.0100, L500.2500, L501.1800 ####[facility] [address] [place], [address] CBC W/Diff, Automatedon 10-0 4-4 Absolute Lymph 1.87 X10 3/uL Normal 0.83-4.51 [facility] Comment on above: Performed By: #### L 501.9985, M100.651, L100.0100, L500.2500, L501.1800 ####[facility] [address] [place], [address] Absolute Neut 3.5 X10 3/uL Normal 2.0-7.7 [facility] Comment on above: Performed By: #### L 501.9985, M100.651, L100.0100, L500.2500, L501.1800 ####[facility] [address] [place], [address] Basophils/100 WBC (Bld) 1.1 % High 0-1 [facility] Comment on above: Performed By: #### L 501.9985, M100.651, L100.0100, L500.2500, L501.1800 ####[facility] [address] [place], [address] Eosinophils/100 WBC (Bld) 6.9 % High 0-5 [facility] Comment on above: Performed By: #### L 501.9985, M100.651, L100.0100, L500.2500, L501.1800 ####[facility] [address] [place], [address] Erythrocyte distribution width (RBC) [Ratio] 13.8 % Normal 11.6-14.6 [facility] Comment on above: Performed By: #### L 501.9985, M100.651, L100.0100, L500.2500, L501.1800 ####[facility] [address] [place], [address] Hematocrit (Bld) [Volume fraction] 36.2 % Low 37-47 [facility] Comment on above: Performed By: #### L 501.9985, M100.651, L100.0100, L500.2500, L501.1800 ####[facility] [address] [place], [address] Hemoglobin (Bld) [Mass/Vol] 11.1 g/dL Low 12.0-15.0 [facility] Comment on above: Performed By: #### L 501.9985, M100.651, L100.0100, L500.2500, L501.1800 ####[facility] [address] [place], [address] IG% 0.300 Normal 0.0-0.9 [facility] Comment on above: Result Comment: IG% - Immature Granulocytes (promyelocytes, myelocytes and metamyelocytes) > 1% indicates that a LEFT SHIFT is Present. Performed By: #### L 501.9985, M100.651, L100.0100, L500.2500, L501.1800 ####[facility] [address] [place], [address] Lymphocytes/100 WBC (Bld) 29.3 % Normal 19-41 [facility] Comment on above: Performed By: #### L 501.9985, M100.651, L100.0100, L500.2500, L501.1800 ####[facility] [address] [place], [address] MCH (RBC) [Entitic mass] 25.8 pg Low 27.0-32.0 [facility] Comment on above: Performed By: #### L 501.9985, M100.651, L100.0100, L500.2500, L501.1800 ####[facility] [address] [place], [address] MCHC (RBC) [Mass/Vol] 30.7 g/dL Low 32-36 [facility] Comment on above: Performed By: #### L 501.9985, M100.651, L100.0100, L500.2500, L501.1800 ####[facility] [address] [place], [address] MCV (RBC) [Entitic vol] 84.2 fL Normal 81-99 [facility] Comment on above: Performed By: #### L 501.9985, M100.651, L100.0100, L500.2500, L501.1800 ####[facility] [address] [place], [address] Monocytes/100 WBC (Bld) 7.4 % Normal 0-10 [facility] Comment on above: Performed By: #### L 501.9985, M100.651, L100.0100, L500.2500, L501.1800 ####[facility] [address] [place], [address] Neutrophils/100 WBC (Bld) 55.0 % Normal 47-70 [facility] Comment on above: Performed By: #### L 501.9985, M100.651, L100.0100, L500.2500, L501.1800 ####[facility] [address] [place], [address] Nucleated RBC (Bld) [#/Vol] 0 10*3/uL Normal 0-5 [facility] Comment on above: Performed By: #### L 501.9985, M100.651, L100.0100, L500.2500, L501.1800 ####[facility] [address] [place], [address] Platelet mean volume (Bld) [Entitic vol] 12.3 fL High 6.2-12.0 [facility] Comment on above: Performed By: #### L 501.9985, M100.651, L100.0100, L500.2500, L501.1800 ####[facility] [address] [place], [address] Platelets (Bld) [#/Vol] 218 10*3/uL Normal 150-450 [facility] Comment on above: Performed By: #### L 501.9985, M100.651, L100.0100, L500.2500, L501.1800 ####[facility] [address] [place], [address] RBC (Bld) [#/Vol] 4.30 10*6/uL Normal 4.2-5.4 [facility] Comment on above: Performed By: #### L 501.9985, M100.651, L100.0100, L500.2500, L501.1800 ####[facility] [address] [place], [address] RDW SD 42.5 fl Normal 35.1-43.9 [facility] Comment on above: Performed By: #### L 501.9985, M100.651, L100.0100, L500.2500, L501.1800 ####[facility] [address] [place], [address] WBC (Bld) [#/Vol] 6.4 10*3/uL Normal 4.4-11.0 [facility] Comment on above: Performed By: #### L 501.9985, M100.651, L100.0100, L500.2500, L501.1800 ####[facility] [address] [place], [address] Extremity Upper without Cont raon 12-12-2023 Extremity Upper without Contra [facility] Imaging Services [address] [place] [address] Extremity Upper without Contra MR#: [id number] Acct: [id number] Name: Jose PIEDRA Rep #: [id number] : 1940 F 83 From: Kunal Vanegas MD PCP: Dr. Ronak Escalante MD Status: REG CLI Study: Extremity Upper without Contra Date of Exam: Exam# [id number] Ordering Dr: Sheridan Nowak MD [id number] EXAM: CT RIGHT UPPER EXTREMITY WITHOUT INTRAVENOUS CONTRAST CLINICAL INDICATION: RIGHT SHOULDER PAIN TECHNIQUE: Helically acquired images were obtained of the right upper extremity without intravenous contrast. 2-D reformats were performed by the technologist. CTDIvol = ( 22.66 ) mGy, DLP = ( 475.46 ) mGycm This CT exam was performed using one or more of the following dose reduction techniques: automated exposure control, adjustment of the mA and/or kV according to patient size, and/or use of iterative reconstruction technique. COMPARISON: No relevant prior studies available. FINDINGS: BONES/JOINTS: Severe right glenohumeral joint arthrosis with large subchondral cysts on both sides of the articulation. Anterior pericapsular calcifications of the glenohumeral joint. Intra-articular ossific bodies are also suspected to involve the right glenohumeral joint. No acute fracture. No subluxation. Normal alignment. No sclerotic or destructive changes. SOFT TISSUES: Unremarkable. No soft tissue swelling or gas. No radiopaque foreign body. CT/Extremity Upper without Contra IMPRESSION: 1. Severe glenohumeral joint osteoarthritis, end-stage. 2. Ancillary findings as above. Electronically Signed: Kunal Vanegas MD at 4:51 EDT Reading Location ID and State: [facility] / [place] Tel , Service support , CC: Dr. Ronak Escalante MD; Dr. Sheridan Nowak MD Um Rn: Signed Normal [facility] Hemoglobin A1con 12-12-2023 HbA1c (Bld) [Mass fraction] 10.6 % High 3.8-5.6 [facility] Comment on above: Result Comment: Norm al < 5.7 % Prediabetic 5.7 - 6.4 % Diabetic >or= 6.5 % Please note range changes. Performed By: #### L 501.9985, M100.651, L100.0100, L500.2500, L501.1800 ####[facility] [address] [place], [address] Magnesiumon 12-12-2023 Magnesium [Mass/Vol] 1.5 mg/dL Low 1.6-2.6 [facility] Comment on above: Performed By: #### L 501.5200 ####[facility] [address] [place], [address] Cerv Spine 4 or 5 Viewson Cerv Spine 4 or [address] [facility] Imaging Services [address] [place] [id number] Cerv Spine 4 or 5 Views MR#: [id number] Acct: [id number] Name: Jose PIEDRA Rep #: [id number] : 1940 F 83 From: Harpal Lomeli MD PCP: Dr. Ronak Escalante MD Status: REG CLI Study: Cerv Spine 4 or 5 Views Date of Exam: 10/16/23 Exam# [id number] Ordering Dr: Tanner Neal MD [id number] STUDY: X-RAY - CERVICAL SPINE REASON FOR EXAM: Female, 83 years old. NECK PAIN TECHNIQUE: 5 view(s) of the cervical spine were obtained. COMPARISON: None FINDINGS: Normal anterior atlantoaxial articulation. Normal odontoid process. Normal cervical lordosis. There is multi-level endplate spondylosis. There is multi-level degenerative disc disease with multilevel disc space narrowing. Normal visualized intervertebral neuroforamina. The soft tissue structures are unremarkable. RAD/Cerv Spine 4 or 5 Views IMPRESSION: Mild degenerative disc disease of the cervical spine. MRI may be useful. Electronically Signed: Harpal Lomeli MD at 9:10 EDT , CC: Dr. Tanner Neal MD; Dr. Ronak Escalante MD Um Rn: Signed Normal [facility] Basic Metabolic Profile (BMP )on 10-02-2023 BUN/CRE 13.8 RATIO Normal 10-20 [facility] Comment on above: Order Comment: CLEAN CATCH Performed By: #### L 503.6030, L503.6550, L400.0001 #### [facility] [address] [place], [address] CA,Total 8.8 mg/dL Normal 8.5-10.1 [facility] Comment on above: Order Comment: CLEAN CATCH Performed By: #### L 503.6030, L503.6550, L400.0001 #### [facility] [address] [place], [address] Chloride [Moles/Vol] 100 mmol/L Normal 98-107 [facility] Comment on above: Order Comment: CLEAN CATCH Performed By: #### L 503.6030, L503.6550, L400.0001 #### [facility] [address] [place], [address] CO2 [Moles/Vol] 30.0 mmol/L Normal 21.0-32.0 [facility] Comment on above: Order Comment: CLEAN CATCH Performed By: #### L 503.6030, L503.6550, L400.0001 #### [facility] [address] [place], [address] Creatinine [Mass/Vol] 0.65 mg/dL Normal 0.55-1.02 [facility] Comment on above: Order Comment: CLEAN CATCH Result Comment: The validity of the calculated GFR GFRAA in patients over 70 years has not been determined. Clinical correlation is essential. Performed By: #### L 503.6030, L503.6550, L400.0001 #### [facility] [address] [place], [address] EST GFR - AA 111 mL/min Normal >60 [facility] Comment on above: Order Comment: CLEAN CATCH Result Comment: Afri can [place] GFR Calc Performed By: #### L 503.6030, L503.6550, L400.0001 #### [facility] [address] [place], [address] GAP 5 Normal 5-15 [facility] Comment on above: Order Comment: CLEAN CATCH Performed By: #### L 503.6030, L503.6550, L400.0001 #### [facility] [address] [place], [address] GFR/1.73 sq M.predicted among non-blacks MDRD (S/P/Bld) [Vol rate/Area] 92 mL/min/{1.73_m2} Normal >60 [facility] Comment on above: Order Comment: CLEAN CATCH Result Comment: Non- GFR Calc Performed By: #### L 503.6030, L503.6550, L400.0001 #### [facility] [address] [place], [address] Glucose [Mass/Vol] 247 mg/dL High 74-106 [facility] Comment on above: Order Comment: CLEAN CATCH Result Comment: Gluc ose result greater than or equal to 200 mg/dL suggests DIABETES MELLITUS per A.D.A. criteria. Performed By: #### L 503.6030, L503.6550, L400.0001 #### [facility] [address] [place], [address] Potassium [Moles/Vol] 3.5 mmol/L Normal 3.5-5.1 [facility] Comment on above: Order Comment: CLEAN CATCH Performed By: #### L 503.6030, L503.6550, L400.0001 #### [facility] [address] [place], [address] Sodium [Moles/Vol] 135 mmol/L Low 136-145 [facility] Comment on above: Order Comment: CLEAN CATCH Performed By: #### L 503.6030, L503.6550, L400.0001 #### [facility] [address] [place], [address] Urea nitrogen [Mass/Vol] 9 mg/dL Normal 7-18 [facility] Comment on above: Order Comment: CLEAN CATCH Performed By: #### L 503.6030, L503.6550, L400.0001 #### [facility] [address] [place], [address] Venous Duplex US - Kody Extre [facility] 10-02-2023 Venous Duplex US - Kody Extrem [facility] Cardiovascular Services [address] [place] [address] Venous Duplex US - Kody Extrem 10/02/23 1509 MR#: [id number] Acct: [id number] Name: Jose PIEDRA Rep #: [id number] : 1940 83 From: Yazan Fairbanks MD Attending Dr: Dr. Ronak Escalante MD Status: R EG CLI Ordering Dr: Ronak Escalante MD Date: 10/02/23 Location: [facility] Sex: F C Admitted: Reason For Study: BLE Edema RIGHT LEFT GSV is normal. GSV is normal. CFV is compressible, spontaneous, phasic, CFV is compressible, spontaneous, phasic, competent and demonstrates normal competent, and demonstrates normal augmentation. augmentation. FV is compressible, spontaneous, phasic, FV is compressible, spontaneous, phasic, competent and demonstrates normal competent and demonstrates normal augmentation. augmentation. POP V is compressible, spontaneous, phasic, POP V is compressible, spontaneous, phasic, competent and demonstrates normal competent and demonstrates normal augmentation. augmentation. T/P Trunk is compressible. T/P Trunk is compressible. PTV is compressible. PTV is compressible. RT PerV is compressible. LT PerV is compressible. Procedure This is a venous duplex using B-mode, color flow and spectral Doppler. Exam performed in department. The exam was diagnostic. A preliminary report was called and/or faxed to Dr Escalante office. VL/Venous Duplex US - Kody Extrem Interpretation Summary No evidence for acute deep venous thrombosis bilateral lower extremities with patent and compressible bilateral great saphenous veins. Ordering Physician: Ronak Escalante Referring Physician: Ronak Escalante Performed By: Maxime Jang RVT 10/02/23 1800 Date Yazan Fairbanks MD CC: Dr. Ronak Escalante MD Date Dictated: 10/02/23 1509 Date Transcribed: 10/02/23 1800 Um Rn: [facility] MR/BMS.BPon 09-22-2023 MR/BMS.BP [address], [place] [address] OFFICE VISIT Date of Service: 09/22/23 MR#: [id number] Acct: [id number] Name: Jose PIEDRA Rep #: [id number] : 1940 Provider: Dr. Sheridan Lima se, DO Age/Sex: 83/F [facility] Status: Signed Intake Vital Signs 07/10/23 10:04 09/22/23 09:40 09/22/23 09:43 Height 5 ft 2 in 5 ft 2 in 5 ft 2 in BP 189/72 H Blood Pressure Location Rt brachial Position Sitting Pulse 74 Pulse Source Monitor BP Intake Visit Reasons: 2 M FU Social Media Community Manager Required: No Accompanied by: Is patient in pain?: No Allergies codeine Allergy (Verified 09/22/23 09:44) Rash morphine Allergy (Verified 09/22/23 09:44) Rash Medications ???Medication ???Instructions ???Recorded ???Confirmed ???Type aspirin 81 mg tablet,delayed 81 mg PO DAILY 02/28/22 09/22/23 History release (Adult Aspirin Regimen) atorvastatin 40 mg tablet ea PO 02/28/22 09/22/23 History brimonidine 0.2 % eye drops ml ophthalmic (eye) 02/28/22 09/22/23 History deutetrabenazine 6 mg tablet 6 mg PO BID 02/28/22 09/22/23 History (Austedo) hydrochlorothiazide 12.5 mg tablet ea PO 02/28/22 09/22/23 History insulin glargine 100 unit/mL (3 ml subcut 02/28/22 09/22/23 History mL) subcutaneous pen (Lantus Solostar U-100 Insulin) metformin 500 mg tablet ea PO 02/28/22 09/22/23 History pantoprazole 40 mg tablet,delayed ea PO 02/28/22 09/22/23 History release prednisolone acetate 1 % eye ml ophthalmic (eye) 02/28/22 09/22/23 History drops,suspension timolol maleate 0.5 % eye drops 1 drp ophthalmic (eye) BID 02/28/22 09/22/23 History amlodipine 2.5 mg tablet 2.5 mg PO QAM 07/10/23 09/22/23 History lisinopril 20 mg tablet 20 mg PO QDAY 07/10/23 09/22/23 History escitalopram oxalate 10 mg tablet 10 mg PO DAILY #30 tabs 07/21/23 09/22/23 Rx mirtazapine 15 mg tablet 15 mg PO QHS #90 tabs 09/23/23 09/23/23 Rx Have you fallen in the past year?: No Current gender identity: female Nurse's Note: Presents to the office today for follow up. [facility] Medical History Tardive dyskinesia Major depressive disorder Vision problems GERD (gastroesophageal reflux disease) Hypertension Hearing problem Headache Hx of emotional problems Diabetes Carpal tunnel syndrome Cataracts, bilateral Surgical History History of knee replacement H/O repair of rotator cuff History of carpal tunnel surgery H/O: hysterectomy H/O thyroidectomy Family History Other Cancer Diabetes Social History Smoking Status: Never smoker alcohol intake: never substance use type: does not use HPI History of Present Illness History provided by: patient HPI: Karri Piedra is a 83 year old female who presents today for follow up evaluation. Does present with her today. Patient reports that she has been good. Patient reports that she has been having some itching in recent past, usually when she takes a new pain medication for her shoulder. Did try hydrocodone which she felt like was the cause of this. Also got a cortisone shot in shoulder recently which did seemed to help. Dizziness has been doing better in recent past. Still having some difficulty getting to sleep, and was asleep last night around 4-5 am. Did not take remeron for a week, but didn't find that things got better or worse. Restarted taking again 3 days ago. Feels like mood has been doing pretty good. Does get crabby at times, but part of this is related to sleep problems. Appetite has been fair to good, but has lost 10 lbs in recent past. Is happy to be home overall. Denies SI/HI or AVH. Review of Systems Constitutional Denies: fever(s), chills or fatigue Eyes Denies: change in vision or blurry vision Ears, Nose, Mouth, Throat Denies: throat pain, neck pain or change in hearing Cardiovascular Denies: chest pain, palpitations or dyspnea Respiratory Denies: dyspnea, cough or wheezing Gastrointestinal Reports: abdominal pain and nausea; Denies: vomiting, diarrhea or constipation Genitourinary Denies: dysuria or urinary frequency Musculoskeletal Denies: back pain, neck pain, joint pain or muscle weakness Integumentary/Breast Denies: rash or new lesions Neurological Reports: headache(s), dizziness, confusion and difficulty communicating thoughts Endocrine Denies: fatigue or excessive sweating Hematologic/Lymphatic Denies: easy bruising or easy bleeding Allergic/Immunologic Denies: wheezing Exam Mental Status Exam - Psych Appearance adequately groomed and other (Appears overall healthier than previous encounters) Attitude cooperative (more content not included)... Normal [facility] Inj/Asp Xavi Jt Should/Hip/Kn eeon 09-19-2023 Inj/Asp Xavi Jt Should/Hip/Knee [facility] Imaging Services [address] [place] [address] Inj/Asp Xavi Jt Should/Hip/Knee MR#: [id number] Acct: [id number] Name: Jose PIEDRA Rep #: [id number] : 1940 F 83 From: Magdy herrera MD PCP: Dr. Ronak Escalante MD Status: REG CL Study: Inj/Asp Xavi Jt Should/Hip/Knee Date of Exam: 0 09/19/23 Exam# [id number] Ordering Dr: Sheridan Nowak MD [id number] PROCEDURE: Fluoroscopic guided right shoulder Injection DATE: September 19, 2023. INDICATION: Female, 83 years old. Chronic right shoulder pain. PHYSICIAN: Magdy Santiago M.D. MEDICATIONS: 12 mg of betamethasone and 4 cc of 1% lidocaine. 2% lidocaine administered subcutaneously for local anesthesia. ACCESS SITE: Right shoulder. NEEDLE: 22-gauge spinal needle. FLUOROSCOPY TIME (if supplied): (0:59) minutes/seconds. 5.7 mGy One image was submitted. FINDINGS: The risks, benefits, and alternatives to the procedure were explained to the patient. The specific risks of bleeding, infection, and neurovascular injury were detailed and accepted. Witnessed informed consent was obtained. A the needle was positioned under radiographic fluoroscopic localization. Approximately 2 cc of Isovue-300 instilled for localization purposes. Medication was then injected. The patient tolerated the procedure well without any immediate complications. RAD/Inj/Asp Xavi Jt Should/Hip/Knee IMPRESSION: 1. Successful fluoroscopic guided hip injection. Electronically Signed: Magdy Santiago MD at 10:32 EDT , CC: Dr. Ronak Escalante MD; Dr. Sheridan Nowak MD Um Rn: Signed Normal [facility] Clavicleon 09-05-2023 Clavicle [facility] Imaging Services [address] [place], [place] [address] Clavicle MR#: [id number] Acct: [id number] Name: Jose PIEDRA Rep #: [id number] : 1940 F 83 From: Serg Goldstein MD PCP: Dr. Ronak Escalante MD Status: REG CLI Study: Clavicle Date of Exam: 09/05/23 Exam# [id number] Ordering Dr: Ronak Escalante MD [id number] STUDY: X-RAY - RIGHT CLAVICLE REASON FOR EXAM: Female, 83 years old. Pain. TECHNIQUE: 4 view(s) of the clavicle. COMPARISON: October 07, 2019 FINDINGS: Osteopenia. Fracture of the distal clavicle with increase in displacement of the proximal fragment of the clavicular fracture which now is displaced approximately 2.4 cm from the distal fracture fragment. Progression of mild arthrosis of the AC joint and moderate to marked arthrosis of the glenohumeral joint. New calcific tendinosis. Normal visualized pulmonary apex. RAD/Clavicle IMPRESSION: Osteopenia with substantial widening of the distal clavicle at the fracture site as described. 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 New calcific tendinosis. Electronically Signed: Serg Goldstein MD at 11:06 EDT Reading Location ID and State: [address] [facility] , Service support , CC: Dr. Ronak Escalante MD Um Rn: Signed Normal [facility] Shoulder min 2 Viewson 09-04 Shoulder min [address] [facility] Imaging Services [address] [place], [place] [address] Shoulder min 2 Views MR#: [id number] Acct: [id number] Name: Jose PIEDRA Rep #: [id number] : 1940 F 83 From: Serg Goldstein MD PCP: Dr. Ronak Escalante MD Status: REG CLI Study: Shoulder min 2 Views Date of Exam: 09/05/23 Exam# [id number] Ordering Dr: Ronak Escalante MD [id number] STUDY: X-RAY - RIGHT SHOULDER REASON FOR EXAM: Female, 83 years old. Pain. TECHNIQUE: 4 view(s) of the shoulder. COMPARISON: September 05, 2023 FINDINGS: Marked osteopenia. Moderate to severe arthrosis of the glenohumeral joint, unchanged. Mild arthrosis at the AC joint is unchanged. Normal acromion. Sclerosis and cystic changes of the humeral head unaltered from the prior study. Stable calcific tendinosis. Normal visualized pulmonary apex. RAD/Shoulder min 2 Views IMPRESSION: Stable osteopenia, moderate to severe arthrosis of the glenohumeral joint, mild arthrosis of the AC joint and calcific tendinosis. No acute abnormality. Electronically Signed: Serg Goldstein MD at 11:01 EDT , CC: Dr. Ronak Escalante MD Um Rn: Signed [facility] [place] 03-19-2023 [place] Patient Choice Patient Name: KARRI PIEDRA Date of : 1940 [facility] [place] 02-26-2023 [place] Next Site of Care Admission Date: 02/18/2023 06:15 PM Patient Name: KARRI PIEDRA Location: [address] [id number] Date of : 1940 Placement Information Referral Type:Group Home/SNF - New Referral ID:[id number] Provider Name:[facility] Address 1:[address] Phone Number: Address 2: Fax Number: Herrera:Jada Selection Factors:Patient/Family Choice State:[facility] [place] Spoke to admissions [facility] patient has been approved to be admitted. Spoke to patient's spouse Sami and son Aaron both expressed support for plan to be transferred later today. Updated patient she expressed support for plan denies thoughts of self-harm. All the above aware patient will be transported via ambulance to the [facility]. [facility] [place] Discharge transporta tion arranged for 2:30 PM today to [facility]. Will inform Emerson Moeller SW, unit staff and [facility]. [facility] IDNon 02-26-2023 IDN Problem: Knowledge D eficit Goal: Patient/family/caregiver demonstrates understanding of disease process, treatment plan, medications, and discharge instructions Outcome: Progressing Problem: Potential for Compromised Skin Integrity Goal: Skin Integrity is Maintained or Improved Outcome: Progressing Goal: Nutritional status is improving Outcome: Progressing Problem: Urinary Incontinence Goal: Perineal skin integrity is maintained or improved Outcome: Progressing Problem: Problem Interventions Goal: Dietary Supplements Outcome: Progressing [facility] Progress Noteon 02-26-2023 Progress Note Security and ambulan ce transport services here to take patient to [facility]. 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 Patient agrees with discharge to facility. [facility] Progress Note Report called to [facility] Progress Note Medical bed : decrea sed mobility, uses wheelchair. Patient up slow, gait unsteady, transfer to wheelchair, med compliant crushed, taking puree diet, oriented to person (knows ), place, time, and situation, able to express needs. Patient's mood: anxious, pleasant, cooperative with care, social with staff. Speech clear, slow to response at times. Appearance: dressed appropriately. Hallucinations/delusions: none voiced or seen. Continent of bladder, had Bm yesterday. Voiced no c/o pain. In day room most of the day, watching TV, attending group activities. Skin intact, no issues. Assisted with activities of daily living and instructed to do daily hygiene, daily oral care. Instructed to wash hands frequently, ask for help. No thoughts of hurting themselves or others. Safety: rover checks, room checks, safety socks, instructed to call don't fall. Family visits: none seen. Phone Calls: none seen. Discuss admission to unit, patient states she was in crisis, better now. Goals: Coping methods: she likes music, the song peace in the river. Patient response- med compliant crushed, cooperative with care, social with staff, up with help. PRN's: none so far. Normal [facility] Progress Note PHYSICAL THERAPY [facility] Treatment Note Name/MRN: Karri Piedra ([id number]) Date of : 1940 Age: 83 y.o. Room/Bed: S4-113/S4-113 A Discharge Recommendation: Care Home Facility, Patient would benefit from continued therapy after discharge Equipment Needed: No Other: TBD at next level of care Assessment Pt continues with generalized weakness and impaired balance. Pt continues to be at increased risk for falls and not safe for disch home at current level of function. Pt with good participation with PT. Follows directions, answers questions with a delay in response. Subjective Pt reports she is looking forward to disch soon to SNF Pain: RN managing pain. Pt reports pain in L groin area Medical Precautions: No active isolations Proper PPE donned/doffed in accordance with facility standards. Fall Risk: Brennan Fall Risk Score: 40 (Medium Risk) Overall Cognitive Status: Pt cooperative and participating well with PT session. Follows directions consistently, answers questions with a delay in responses Overall Orientation Status: Oriented x4 Family/Caregiver Present: nurse tech for w/c follow Objective Ambulation Ambulation 1 Assistive device(s) used: front wheeled walker Assist level: Min Assist, with w/c follow Distance (ft): 80 ft Quality of gait: shuffling, short quick steps with pt looking down at floor, able to look up with verbal cues and reminders Transfers/Mobility Sit to stand: Mod Assist Stand to sit: Mod Assist Bed to chair: Mod Assist Standing balance: Contact Guard Pt standing at irving rail, forward facing with kody hands on rail for support Device(s) used: wheelchair - manual Exercises Pt stood at irving rail, marching in place and heel Bed Mobility Supine to sit: Max Assist Sit to supine: Min Assist Rolling to left: Mod Assist Plan Continue acute PT per plan of care. Safety/Education Safety Safety Devices in place: left in chair, gait belt, patient at risk for falls, and pt with nurse tech for ADL's Restraints: No Education Education Given To: patient Education Provided: PT Goals, Gait Training, and Transfer Training Education Method: Verbal Barriers to Learning: Cognition Education Outcome: Verbalized Understanding, Demonstrated Understanding, and Continued Education Needed Outcome Measures AM-PAC AM-PAC Inpatient Mobility Raw Score (No Stairs) : 11 JH-HLM JH-HLM Score: Walked 25 ft or more (i.e. walked outside of room) Goals Patient Stated Goal: Encounter Problems Encounter Problems (Active) Balance Patient will maintain static standing balance for 5 minutes with supervision in order to demonstrate decreased risk of falling. (Progressing) Start: 02/20/23 Expected End: 03/20/23 Mobility Patient will ambulate 150 feet with supervision and rolling walker in order to improve safety and independence with mobility. (Progressing) Start: 02/20/23 Expected End: 03/20/23 Transfers Patient will perform bed mobility with supervision in order to improve independence and prepare for out of bed mobility. (Progressing) Start: 02/20/23 Expected End: 03/20/23 Patient will complete functional transfer with rolling walker with supervision in order to prepare for ambulation. (Progressing) Start: 02/20/23 Expected End: 03/20/23 Therapy Time Individual Co-treatment Time In 0930 Time Out 0955 Minutes 25 Timed Code Treatment Minutes: 25 Minutes (gait, FA) Lauren Arvizu, PT [facility] Progress Note Patient refused AM l ab draw. Rescheduled to 02/27/23 [facility] [place] 02-25-2023 [place] TCT, updated, fam at tempting to find facility in [facility] [place] TCT son, l/m Normal [facility] [place] [facility] , l/m #3 Normal [facility] CBC WITH AUTO DIFFERENTIALon 02-25-2023 Basophils (Bld) [#/Vol] 0.0 10*3/uL Normal 0.0-0.2 [facility] Comment on above: Performed By: #### L AB18, [id number] #### Official Greeter: ION MOURA ([id number]) [facility]) [address] [place] [address] Basophils/100 WBC (Bld) 0.2 % Normal 0.0-2.0 [facility] Comment on above: Performed By: #### L AB18, [id number] #### Official Greeter: ION MOURA ([id number]) [facility]) [address] [place] [address] Eosinophils (Bld) [#/Vol] 0.2 10*3/uL Normal 0.0-0.5 [facility] Comment on above: Performed By: #### L AB18, [id number] #### Official Greeter: ION MOURA ([id number]) [facility]) [address] [place] [address] Eosinophils/100 WBC (Bld) 2.2 % Normal 1.0-6.0 [facility] Comment on above: Performed By: #### L AB18, [id number] #### Official Greeter: ION MOURA ([id number]) [facility]) [address] [place] [address] Erythrocyte distribution width (RBC) [Ratio] 15.3 % High 11.5-14.5 [facility] Comment on above: Performed By: #### L AB18, [id number] #### Official Greeter: ION MOURA ([id number]) [facility]) [address] [place] [address] ERYTHROCYTE MEAN CORPUSCULAR HEMOGLOBIN CONCENTRATION (G/DL) BY AUTOMATED 33.3 % Normal 32.0-36.0 [facility] Comment on above: Performed By: #### L AB18, [id number] #### Official Greeter: ION MOURA ([id number]) [facility]) [address] [place] [address] Hematocrit (Bld) [Volume fraction] 36.5 % Normal 35.0-47.0 [facility] Comment on above: Performed By: #### L AB18, [id number] #### Official Greeter: ION MOURA ([id number]) [facility]) [address] [place] [address] Hemoglobin (Bld) [Mass/Vol] 12.2 g/dL Normal 11.7-16.0 [facility] Comment on above: Performed By: #### L AB18, [id number] #### Official Greeter: ION MOURA ([id number]) [facility]) [address] [place] [address] Lymphocytes (Bld) [#/Vol] 1.8 10*3/uL Normal 1.0-4.3 [facility] Comment on above: Performed By: #### L AB18, [id number] #### Official Greeter: ION MOURA ([id number]) [facility]) [address] [place] [address] Lymphocytes/100 WBC (Bld) 25.9 % Normal 20.0-40.0 [facility] Comment on above: Performed By: #### L AB18, [id number] #### Official Greeter: ION MOURA ([id number]) [facility]) [address] [place] [address] MCH (RBC) [Entitic mass] 28.8 pg Normal 26.0-34.0 [facility] Comment on above: Performed By: #### L AB18, [id number] #### Official Greeter: ION MOURA ([id number]) [facility]) [address] [place] [address] MCV (RBC) [Entitic vol] 86.3 fL Normal 80.0-98.0 [facility] Comment on above: Performed By: #### L AB18, [id number] #### Official Greeter: ION MOURA ([id number]) [facility] ([facility]) [address] [place] [address] Monocytes (Bld) [#/Vol] 0.5 10*3/uL Normal 0.0-0.8 [facility] Comment on above: Performed By: #### L AB18, [id number] #### Official Greeter: ION MOURA ([id number]) [facility] ([facility]) [address] [place] [address] Monocytes/100 WBC (Bld) 7.2 % Normal 2.0-10.0 [facility] Comment on above: Performed By: #### L AB18, [id number] #### Official Greeter: ION MOURA ([id number]) [facility] ([facility]) [address] [place] [address] Neutrophils (Bld) [#/Vol] 4.5 10*3/uL Normal 1.8-7.0 [facility] Comment on above: Performed By: #### L AB18, [id number] #### Official Greeter: ION MOURA ([id number]) [facility] ([facility]) [address] [place] [address] Neutrophils/100 WBC (Bld) 64.5 % Normal 40.0-80.0 [facility] Comment on above: Performed By: #### L AB18, [id number] #### Official Greeter: ION MOURA ([id number]) [facility] ([facility]) [address] [place] [address] NRBC (PER 100 WBCS) BY AUTOMATED COUNT 0.0 /100 WBCs Normal 0.0-2.0 [facility] Comment on above: Performed By: #### L AB18, [id number] #### Official Greeter: ION MOURA ([id number]) [facility]) [address] [place] [address] Platelet mean volume (Bld) [Entitic vol] 9.1 fL Normal 7.4-12.4 [facility] Comment on above: Performed By: #### L AB18, [id number] #### Official Greeter: ION MOURA ([id number]) [facility]) [address] [place] [address] Platelets (Bld) [#/Vol] 273 10*3/uL Normal 140-440 [facility] Comment on above: Performed By: #### L AB18, [id number] #### Official Greeter: ION MOURA ([id number]) [facility] ([facility]) [address] [place] [address] RBC (Bld) [#/Vol] 4.23 10*6/uL Normal 3.8-5.20 [facility] Comment on above: Performed By: #### L AB18, [id number] #### Official Greeter: ION MOURA ([id number]) [facility] ([facility]) [address] [place] [address] WBC (Bld) [#/Vol] 7.0 10*3/uL Normal 3.6-10.7 [facility] Comment on above: Performed By: #### L AB18, [id number] #### Official Greeter: ION MOURA ([id number]) [facility] ([facility]) [address] [place] [address] COMPREHENSIVE METABOLIC PANE Lenin 02-25-2023 Albumin [Mass/Vol] 3.8 g/dL Normal 3.5-5.0 [facility] Comment on above: Performed By: #### L AB18, [id number] #### Official Greeter: ION MOURA ([id number]) [facility] ([facility]) [address] [place] [address] ALP [Catalytic activity/Vol] 80 U/L Normal 38-126 [facility] Comment on above: Performed By: #### L AB18, [id number] #### Official Greeter: ION MOURA ([id number]) [facility]) [address] [place] [address] ALT [Catalytic activity/Vol] 35 U/L High 0-34 [facility] Comment on above: Performed By: #### L AB18, [id number] #### Official Greeter: ION MOURA ([id number]) [facility] ([facility]) [address] [place] [address] [place] Anion gap [Moles/Vol] 9 mmol/L Normal 3-13 [facility] Comment on above: Performed By: #### L AB18, [id number] #### Official Greeter: ION MOURA ([id number]) [facility]) [address] [place] [address] [place] AST [Catalytic activity/Vol] 39 U/L Normal 15-46 [facility] Comment on above: Performed By: #### L AB18, [id number] #### Official Greeter: ION MOURA ([id number]) [facility]) [address] [place] [address] Bilirubin [Mass/Vol] 0.3 mg/dL Normal 0.2-1.3 [facility] Comment on above: Performed By: #### L AB18, [id number] #### Official Greeter: ION MOURA ([id number]) [facility]) [address] [place] [address] [place] Calcium [Mass/Vol] 9.3 mg/dL Normal 8.4-10.4 [facility] Comment on above: Performed By: #### L AB18, [id number] #### Official Greeter: ION MOURA ([id number]) [facility]) [address] [place] [address] [place] Chloride [Moles/Vol] 102 mmol/L Normal 98-107 [facility] Comment on above: Performed By: #### L AB18, [id number] #### Official Greeter: ION MOURA ([id number]) [facility]) [address] [place] [address] [place] CO2 [Moles/Vol] 23 mmol/L Normal 22-30 [facility] Comment on above: Performed By: #### L AB18, [id number] #### Official Greeter: ION MOURA ([id number]) [facility]) [address] [place] [address] [place] Creatinine [Mass/Vol] 0.49 mg/dL Low 0.52-1.04 [facility] Comment on above: Performed By: #### L AB18, [id number] #### Official Greeter: ION MOURA ([id number]) [facility]) [address] [place] [address] GLOMERULAR FILTRATION RATE ML/MIN/1.73 SQ M.PREDICTED >90.0 Normal >60.0 [facility] Comment on above: Result Comment: Calc ulation based on the Chronic Kidney Disease Epidemiology Collaboration (CKD-EPI) equation refit without adjustment for race Performed By: #### L AB18, [id number] #### Official Greeter: ION MOURA ([id number]) [facility] ([facility]) [address] [place] [address] Glucose [Mass/Vol] 172 mg/dL High 70-100 [facility] Comment on above: Performed By: #### L AB18, [id number] #### Official Greeter: ION MOURA ([id number]) [facility]) [address] [place] [address] Potassium [Moles/Vol] 4.4 mmol/L Normal 3.5-5.1 [facility] Comment on above: Performed By: #### L AB18, [id number] #### Official Greeter: ION MOURA ([id number]) [facility]) [address] [place] [address] Protein [Mass/Vol] 6.8 g/dL Normal 6.3-8.2 [facility] Comment on above: Performed By: #### L AB18, [id number] #### Official Greeter: ION MOURA ([id number]) [facility]) [address] [place] [address] [place] Sodium [Moles/Vol] 134 mmol/L Low 135-145 [facility] Comment on above: Performed By: #### L AB18, [id number] #### Official Greeter: ION MOURA ([id number]) [facility]) [address] [place] [address] [place] Urea nitrogen [Mass/Vol] 15 mg/dL Normal 7-17 [facility] Comment on above: Performed By: #### L AB18, [id number] #### Official Greeter: ION MOURA ([id number]) [facility] ([facility]) [address] [place] [address] Consulton 02-25-2023 Consult [facility] - Infectious Diseases Advanced Practice Provider Consult Note Reason for Consult: Acute LLQ diverticulitis History of Present Illness: This is an 83 yo F with a PMH of confusion, DM II, GERD, tardive dyskinesia, HTN, admitted for recurrent/severe MDD with psychosis and TD. Notes reviewed. Pt has had LLQ abd pain since admission. The pain has progressively worsened since admission. Pt endorses diarrhea the last 2 days, but states it has resolved. Has not had any nausea or vomiting and denies fever chills or SOB. D/t worsening pain, CT a/p ordered on 02/24. With questionable uncomplicated mild acute diverticulitis of sigmoid colon as well as cholelithiasis. Was started on cipro and flagyl per GI recs. ID consulted for further recs. Pt with low grade temp overnight of 100.3F. No leukocytosis. Past Medical History: Past Medical History: Diagnosis Date Aphasia 02/19/2023 Chronic insomnia 02/19/2023 Confusion 02/19/2023 Depression Diabetes mellitus (HCC) Dysphagia 02/19/2023 Dysphagia GERD (gastroesophageal reflux disease) HLD (hyperlipidemia) Hypertension Tardive dyskinesia 02/19/2023 Tardive dyskinesia Past Surgical History: No past surgical history on file. Current Medications: Current Facility-Administered Medications Medication Dose Route Frequency Provider Last Rate Last Admin acetaminophen (Tylenol) tablet 650 mg 650 mg Oral q6h PRN Yumiko Gasca MD 650 mg at 02/24/237 Or acetaminophen (Tylenol) suppository 650 mg 650 mg Rectal q6h PRN Ymuiko Gasca MD amoxicillin-clavulanate (Augmentin) 875-125 MG per tablet 1 tablet 875 mg Oral 2 times per day Amelia Bay PA-C aspirin EC tablet 81 mg 81 mg Oral Daily Arjun Cornell MD 81 mg at 02/25/23 0930 atorvastatin (Lipitor) tablet 40 mg 40 mg Oral Daily Arjun Cornell MD 40 mg at 02/24/23 2158 deutetrabenazine (Austedo) tablet 9 mg (patient's own med) 9 mg Oral BID Yumiko Gasca MD 9 mg at 02/25/23 0940 dextrose 5 % infusion 100 mL/hr IntraVENous PRN Arjun Cornell MD dextrose 50 % solution 12.5 g 12.5 g IntraVENous PRN Arjun Cornell MD glucagon (human recombinant) injection 1 mg 1 mg IntraMUSCular PRN Arjun Cornell MD glucose oral gel 15 g 15 g Oral PRN Arjun Cornell MD hydroCHLOROthiazide (HYDRODiuril) tablet 12.5 mg 12.5 mg Oral Daily Arjun Cornell MD 12.5 mg at 02/25/23 0931 Influenza Vac A&B SA Adj quadrivalent (Fluad) vaccine 0.5 mL 0.5 mL IntraMUSCular Once Yumiko Gasca MD insulin glargine (Lantus) injection 18 Units 18 Units SubCUTAneous Nightly Arjun Cornell MD 18 Units at 02/24/23 2157 Insulin Lispro (Humalog) injection 0-6 Units 0-6 Units SubCUTAneous TID Beatrizzainab Soriano APRN - DISTANCE EDUCATION COORDINATOR 1 Units at 02/20/23 0835 And Insulin Lispro (Humalog) injection 0-6 Units 0-6 Units SubCUTAneous Nightly Beatriz Kain DYE HOUSE VAT WORKER - DISTANCE EDUCATION COORDINATOR lisinopril tablet 20 mg 20 mg Oral Daily Arjun Cornell MD 20 mg at 02/25/23 0930 [Held by provider] metFORMIN (Glucophage) tablet 1,000 mg 1,000 mg Oral BID Harpreet Dubois, DYE HOUSE VAT WORKER - DISTANCE EDUCATION COORDINATOR 1,000 mg at 02/25/23 0930 mirtazapine (Remeron) tablet 15 mg 15 mg Oral Nightly Yumiko Gasca MD 15 mg at 02/24/23 2157 OLANZapine (ZyPREXA) tablet 2.5 mg 2.5 mg Oral q6h PRN Yumiko Gasca MD 2.5 mg at 02/24/23 1415 Or OLANZapine (ZyPREXA) 5 mg in sterile water 1 mL injection 5 mg IntraMUSCular q6h PRN Yumiko Gasca MD OLANZapine (ZyPREXA) tablet 2.5 mg 2.5 mg Oral Nightly Yumiko Gasca MD 2.5 mg at 02/24/23 2100 pantoprazole (ProtoNix) EC tablet 40 mg 40 mg Oral qAM AC Yumiko Gasca MD 40 mg at 02/25/23 0633 polyethylene glycol (PEG) 3350 (Miralax) packet 17 g 17 g Oral Daily PRN Yumiko Gasca MD 17 g at 02/23/23 1020 prednisoLONE acetate (Pred-Forte) 1 % ophthalmic suspension 1 drop 1 drop Both Eyes Daily Arjun Cornell MD 1 drop at 02/25/23 0942 sertraline (Zoloft) tablet 200 mg 200 mg Oral Daily Yumiko Gasca MD 200 mg at 02/25/23 0930 timolol (Timoptic) 0.5 % ophthalmic solution 1 drop 1 drop Both Eyes Daily Arjun Cornell MD 1 drop at 02/25/23 0941 traZODone (Desyrel) tablet 50 mg 50 mg Oral Nightly PRN Yumiko Gasca MD 50 mg at 02/24/23 2154 Allergies: Allergies Allergen Reactions Codeine Rash Morphine Rash Social History: Social History Socioeconomic History Marital status: Spouse name: Not on file Number of children: Not on file Years of education: Not on file Highest education level: Not on file Occupational History Not on file Tobacco Use Smoking status: Not on file Smokeless tobacco: Not on file Substance and Sexual Activity Alcohol use: Not on file Drug use: Not on file Sexual activity: Not on file Other Topics Concern Not on file Social History Narrative Not on file Social Determinants of Health Financial Resource Strain: Low Risk (02/19/2023) Overall Financial Resource Strain (CARDIA) Difficulty of Paying Living Expenses: Not very hard Food Insecurity: No Food Insecurity (02/19/2023) [place] (more content not included)... [facility] Consult Department of [facility] al Medicine Gastroenterology Attending Consult Note Reason for Consult: The patient was seen in consultation at the request of Krishna Soriano re: LLQ pain, acute diverticulitis. CHIEF COMPLAINT: Recommended to come to the ED by their psychiatrist for evaluation of intermittent confusion, cognitive decline, depression and suicidal ideations. History Obtained From: EMR and patient. HISTORY OF PRESENT ILLNESS: The patient is a 83 y.o. female with significant past medical history of GERD, dysphagia, tardive dyskinesia, depression, and T2DM who presents with worsening depression and suicidal ideation. Patien asked to evaluate patient for LLQ pain and acute diverticulitis. Denies prior EGD, colonoscopy and abdominal surgery. Denies current use of OAC, NSAIDS, tobacco, EtOH, and illicit drugs. Allergies: Codeine and Morphine Current Medications: Current Facility-Administered Medications: acetaminophen (Tylenol) tablet 650 mg, 650 mg, Oral, q6h PRN, 650 mg at 02/24/232156 OR acetaminophen (Tylenol) suppository 650 mg, 650 mg, Rectal, q6h PRN, Yumiko Gasca MD aspirin EC tablet 81 mg, 81 mg, Oral, Daily, Arjun Cornell MD, 81 mg at 02/24/23955 atorvastatin (Lipitor) tablet 40 mg, 40 mg, Oral, Daily, Arjun Cornell MD, 40 mg at 02/24/232157 ciprofloxacin (Cipro) tablet 500 mg, 500 mg, Oral, 2 times per day, Beatriz Kain, DYE HOUSE VAT WORKER - DISTANCE EDUCATION COORDINATOR, 500 mg at 02/24/232218 deutetrabenazine (Austedo) tablet 9 mg (patient's own med), 9 mg, Oral, BID, Yumiko Gasca MD, 9 mg at 02/24/232158 dextrose 5 % infusion, 100 mL/hr, IntraVENous, PRN, Arjun Cornell MD dextrose 50 % solution 12.5 g, 12.5 g, IntraVENous, PRN, Arjun Cornell MD glucagon (human recombinant) injection 1 mg, 1 mg, IntraMUSCular, PRN, Arjun Cornell MD glucose oral gel 15 g, 15 g, Oral, PRN, Arjun Cornell MD hydroCHLOROthiazide (HYDRODiuril) tablet 12.5 mg, 12.5 mg, Oral, Daily, Arjun Cornell MD, 12.5 mg at 02/24/23955 Influenza Vac A&B SA Adj quadrivalent (Fluad) vaccine 0.5 mL, 0.5 mL, IntraMUSCular, Once, Yumiko Gasca MD insulin glargine (Lantus) injection 18 Units, 18 Units, SubCUTAneous, Nightly, Arjun Cornell MD, 18 Units at 02/24/232156 [Held by provider] Insulin Lispro (Humalog) injection 0-6 Units, 0-6 Units, SubCUTAneous, TID WC, 1 Units at 02/20/23 0835 AND [Held by provider] Insulin Lispro (Humalog) injection 0-6 Units, 0-6 Units, SubCUTAneous, Nightly, Harpreet Dubois APRN - DISTANCE EDUCATION COORDINATOR lisinopril tablet 20 mg, 20 mg, Oral, Daily, Arjun Cornell MD, 20 mg at 02/24/23 0957 metFORMIN (Glucophage) tablet 1,000 mg, 1,000 mg, Oral, BID WC, Harpreet Dubois APRN - DISTANCE EDUCATION COORDINATOR, 1,000 mg at 02/24/23 1725 metroNIDAZOLE (Flagyl) tablet 500 mg, 500 mg, Oral, q8h, Beatriz Kain, BREANNE - DISTANCE EDUCATION COORDINATOR, 500 mg at 02/25/23 0633 mirtazapine (Remeron) tablet 15 mg, 15 mg, Oral, Nightly, Yumiko Gasca MD, 15 mg at 02/24/23 2157 OLANZapine (ZyPREXA) tablet 2.5 mg, 2.5 mg, Oral, q6h PRN, 2.5 mg at 02/24/23 1415 OR OLANZapine (ZyPREXA) 5 mg in sterile water 1 mL injection, 5 mg, IntraMUSCular, q6h PRN, Yumiko Gasca MD OLANZapine (ZyPREXA) tablet 2.5 mg, 2.5 mg, Oral, Nightly, Yumiko Gasca MD, 2.5 mg at 02/24/23 2100 pantoprazole (ProtoNix) EC tablet 40 mg, 40 mg, Oral, qAM AC, Yumiko Gasca MD, 40 mg at 02/25/23 0633 polyethylene glycol (PEG) 3350 (Miralax) packet 17 g, 17 g, Oral, Daily PRN, Yumiko Gasca MD, 17 g at 02/23/23 1020 prednisoLONE acetate (Pred-Forte) 1 % ophthalmic suspension 1 drop, 1 drop, Both Eyes, Daily, Arjun Cornell MD, 1 drop at 02/24/23 1012 sertraline (Zoloft) tablet 200 mg, 200 mg, Oral, Daily, Yumiko Gasca MD, 200 mg at 02/24/23 0956 timolol (Timoptic) 0.5 % ophthalmic solution 1 drop, 1 drop, Both Eyes, Daily, Arjun Cornell MD, 1 drop at 02/24/23 1012 traZODone (Desyrel) tablet 50 mg, 50 mg, Oral, Nightly PRN, Yumiko Gasca MD, 50 mg at 02/24/23 0248 Past Medical History: Active Ambulatory Problems Diagnosis Date Noted No Active Ambulatory Problems Resolved Ambulatory Problems Diagnosis Date Noted No Resolved Ambulatory Problems Past Medical History: Diagnosis Date Aphasia 02/19/2023 Chronic insomnia 02/19/2023 Confusion 02/19/2023 Depression Diabetes mellitus (HCC) Dysphagia 02/19/2023 Dysphagia GERD (gastroesophageal reflux disease) HLD (hyperlipidemia) Hypertension Tardive dyskinesia 02/19/2023 Tardive dyskinesia Past Surgical History: Social History Socioeconomic History Marital status: Spouse name: Not on file Number of children: Not on file Years of education: Not on file Highest education level: Not on file Occupational History Not on file Tobacco Use Smoking status: Not on file Smokeless tobacco: Not on file Substance and Sexual Activity Alcohol use: Not on file Drug use: Not on file Sexual activity: Not on file Other Topics Concern Not on file Social History Narrative Not on file Social Determinants of Health Fin (more content not included)... Normal [facility] GROUPNOTEon 02-25-2023 GROUPNOTE Department: [facility] TIVITIES THERAPY Group Topic: Other Group Date: 02/25/2023 Start Time: 1630 End Time: 1700 Facilitators: Spring Killian Number of Participants: 3 Group Name: word search puzzles Treatment Modality: Leisure Development Purpose: enhance coping skills Summary: To expose patients to healthy leisure outlets. Name: Karri Piedra Date of : 1940 MR: [id number] Mental Status Exam: Appearance: Good eye contact Affect: Restricted Behavior: Pleasant Alertness: Alert Speech: Appropriate Cognition: [place] Level/Quality of Participation: engaged Interactions with others: appropriate Interventions utilized were Activity Therapy Patient's Response to Intervention: pleasant; restricted affect; pt was able to sit with the group for entire session Progress Towards Goal(s): Goal(s) met Additional Comments: Staff will continue to encourage pt to attend AT sessions Next Step: Continue with current services Patients Problems: Patient Active Problem List Diagnosis Depression with suicidal ideation Suicidal behavior without attempted self-injury Aphasia Dysphagia Confusion Chronic insomnia Tardive dyskinesia [facility] IDNon 02-25-2023 IDN Problem: Knowledge D eficit Goal: Patient/family/caregiver demonstrates understanding of disease process, treatment plan, medications, and discharge instructions Outcome: Progressing Problem: Potential for Compromised Skin Integrity Goal: Skin Integrity is Maintained or Improved Outcome: Progressing Goal: Nutritional status is improving Outcome: Progressing Problem: Urinary Incontinence Goal: Perineal skin integrity is maintained or improved Outcome: Progressing Problem: Problem Interventions Goal: Dietary Supplements Outcome: Progressing [facility] Progress Noteon 02-25-2023 Progress Note Patient is seen in r oom. Pt is A&Ox4. Continent but needs assistance to restroom. Uses wheelchair to ambulate. Pt is polite and cooperative. Forgetful at times but easily reoriented. Appears in an improve mood. Denies SI, HI, AH, VH. Denies any pain. Med compliant and medications were given in applesauce. . BG prior to bedtime was 187. Received appropriate insulin per sliding scale. BM this evening was small, soft and formed. No diarrhea or incontinence. Pt assisted into bed. Received evening snack and water. Denies any other questions or concerns. Call [facility] within reach. Q 15 min safety checks maintained. Normal [facility] Progress Note Pt A&Ox2-3. Pt calm and cooperative, anxious and forgetful at times. Pt compliant with meds crushed. Pt denies pain and denies SI/HI/AVH. Pt x1 assist to wheelchair, continent, and somewhat dependent of ADL's. Pt reports fair sleep and eating about 75% of meals. Opportunity given for questions and concerns to be expressed. Safety maintained, will continue to monitor pt. Normal [facility] Progress Note PHYSICAL THERAPY [facility] Name/MRN: Karri Piedra ([id number]) Date: 02/25/2023 PT treatment attempted 02/25. Withheld due to pt stating she was awaiting to discharge within 20 minutes. Senia Morrell, SPT [facility] Progress Note Handing over report of this pt received from EYAL Cavazos. I am now taking care of this pt till the end of this shift [facility] Progress Note Pt Sami rios nd Daughter Jennifer called this evening to inform staff of their concerns regarding patients' health. Family does not want pt to be discharged to [facility] tomorrow and think it is important for patient to stay admitted to hospital for longer observation due to patient recent abdominal pain. Daughter Jennifer phone number is and would like to speak with SW and Physician tomorrow morning. This RN will report to AM family practice physician's concerns. [facility] CARECOORDon 2023 CARECOORD Spoke to patient's gerri Gallardo multiple times throughout the day. Talked about his preferences for placement. Encouraged him to call [facility] and [facility] per the referrals they had agreed to accept patient. Other facilities he requested have either not responded in care port or have declined. [facility] CT ABDOMEN PELVIS WO IV CONT [place] 2023 CT ABDOMEN PELVIS WO IV CONTRAST Patient Name: KARRI PIEDRA : 1940 Exam Date/Time: 2023 11:35 Procedure: CT ABDOMEN PELVIS WO IV CONTRAST Ordering Provider: SORIANO ISABEL Reason For Exam: LLQ abdominal pain CT ABDOMEN AND PELVIS WITHOUT IV CONTRAST CLINICAL INDICATION: Left-sided abdominal pain TECHNIQUE: Axial CT images through the through the abdomen and pelvis with 3 mm reconstruction without intravenous intravenous contrast media. Enteric contrast was not administered. Coronal and sagittal reconstructions included. Dose reduction was employed with automated exposure control. COMPARISON: Abdominal radiographs 02/22/2023 FINDINGS: Examination is somewhat limited in evaluation of solid organs and vascular structures due to the lack of intravenous contrast. Additional limitations: Mild patient motion artifact and streak artifact Lung base: Bibasilar patchy opacities. Atherosclerosis. Liver: Appears fairly homogeneous on this unenhanced examination. Gallbladder/Biliary tree: Multiple gallstones in a contracted gallbladder which measure up to 1.6 cm. Gallbladder demonstrates a tethered contracted appearance along the gallbladder fossa, series 3 image 42. No intra or extrahepatic biliary ductal dilatation Spleen: No significant abnormality detected. Pancreas: Somewhat atrophic without acute abnormality. Adrenals: No discrete mass or nodule detected. Kidneys/pelvic organs: No obstructive uropathy. No nephrolithiasis. Urinary bladder is collapsed limiting evaluation. Uterus is not visualized. GI tract: Small sliding-type hiatal hernia. No dilated loops of small bowel. Appendix not discretely identified. There is enteric contrast within the large bowel from recent modified barium swallow exam. Scattered colonic diverticula most pronounced in the sigmoid colon. There is apparent wall thickening involving portions of the descending colon and to a greater extent sigmoid colon where there may be some slight adjacent haziness. Peritoneal cavity/retroperitoneum: No pneumatosis or pneumoperitoneum. No significant ascites or focal fluid collection. No suspicious bulky adenopathy. Vasculature: Moderate atherosclerotic plaque. Osseous structures/soft tissues: Degenerative spondylosis in the visualized spine with anterolisthesis of L4 over L5 there may be subtle anterior height loss involving L5 which is favored to be chronic. Degenerative changes in the sacroiliac joints. Degenerative changes in the right and left hip. No significant soft tissue abnormality detected IMPRESSION: 1. Questionable uncomplicated mild acute diverticulitis sigmoid colon. Apparent wall thickening involving portions of the descending colon probably related to slight under distention. 2. Cholelithiasis. Gallbladder demonstrates a somewhat contracted/tethered appearance along the gallbladder fossa possibly reflecting scarring. 3. Atherosclerosis. 4. Patchy bibasilar opacities likely reflect atelectasis. Report Dictated on Electronically Signed By: Vikram Umaña MD Electronically Signed Date/Time: 2023 12:59 PM EST LLQ PAIN [facility] IDNon 2023 IDN Problem: Knowledge D eficit Goal: Patient/family/caregiver demonstrates understanding of disease process, treatment plan, medications, and discharge instructions Outcome: Progressing Problem: Potential for Compromised Skin Integrity Goal: Skin Integrity is Maintained or Improved Outcome: Progressing Goal: Nutritional status is improving Outcome: Progressing Problem: Urinary Incontinence Goal: Perineal skin integrity is maintained or improved Outcome: Progressing Problem: Problem Interventions Goal: Dietary Supplements Outcome: Progressing [facility] IDN Problem: Knowledge D eficit Goal: Patient/family/caregiver demonstrates understanding of disease process, treatment plan, medications, and discharge instructions Outcome: Progressing Problem: Potential for Compromised Skin Integrity Goal: Skin Integrity is Maintained or Improved Outcome: Progressing Goal: Nutritional status is improving Outcome: Progressing Problem: Urinary Incontinence Goal: Perineal skin integrity is maintained or improved Outcome: Progressing Problem: Problem Interventions Goal: Dietary Supplements Outcome: Progressing [facility] Nursing Noteon 2023 Nursing Note Patient is alert and oriented x4. She is pleasant, cooperative, and med compliant. She is mostly in her wheel chair in the common area and having meals in the dining area. She does appear sad looking, and voiced she does feel sad. She denies SI/HI/AVH at this time. She still is complaining of abdominal pain when she moves only. Just an achy pain at times. No other concerns at this time, safety is maintained. At 1400 patient reported she felt she had a hard time breathing and her abdomen was hurting. Patient expressed she was feeling anxious and was offered prn medication zyprexa. Patient was given her prn PO zyprexa at 1415. Patient was taken to her bed and laid down in bed. Her vitals were obtained and are stable see flow sheet. Notified Beatriz Soriano SUPERINTENDENT MARINE that CT of her abdomen is resulted now at 1416 in secure chat. Normal [facility] Progress Noteon 2023 Progress Note Patient hit call [facility] asking for assistance to restroom. Staff assisted pt to restroom. While using the restroom, pt C/O nausea. This RN was notified and pt was in the restroom retching while using the toilet. Dr. Crane was notified and Zofran 4 mg ODT was ordered and given at 2126. Pt then assisted back to bed. Pt stool was observed by staff. Stool was soft formed and brown. Stool was not liquid or loose. While being assisted to bed, pt is guarding left side of abdomin and C/O pain. Pt reports she does not want to be discharged to [facility] multiple times. Reports she's willing to go to [facility] for longer observations if needed to be discharged from [facility] but cannot go to [facility] due to her pain and moving causes pain to increase. Staff is understanding of pt concerns and informed her this RN will inform AM RN to speak with treatment team in morning. Pt was understanding. One hour follow up on PRN medication. Pt denied anymore nausea. Medication was effective. Several times throughout the next hour pt hit call light to have assistance to restroom. Pt had approximately 3-4 BM's of small soft stools or just passing flatus. No loose stool or diarrhea was observed during these BM's. Pt is polite and cooperative. A&Ox4. Forgetful at times and may need to be asked question multiple times due to difficulty of hearing. Denies SI, HI, AH, VH. Med compliant. Needs medication crushed and in applesauce. Pt received Tylenol 650 mg PO PRN to help with pain at 215. Encouraged to use call light for any questions or concerns. Staff will continue to monitor. At approximately 2210 pt continued to c/o abdominal pain and was asking for more medication. Dr. Crane was notified. Orders for Bentyl 20 mg and Ibuprofen 400 mg PO ordered for pt. Pt took medication cooperatively at 221. Given water. Encouraged to seek out staff with any questions or concerns. Call light within reach. Staff will continue to monitor. Follow up for PRN medication. Pt reports a decrease in pain and denies any abdominal discomfort at this time. Normal [facility] Progress Note TCT lm Normal [facility] Progress Note Patient fixated on b eing discharge on Friday, refusing prune juice to aid with constipation, stated that she is waiting to speak with the doctor first. No diarrhea this shift. Patient continues to c/o pain to LLQ, tylenol administered and was effective. Patient spoke with over the phone. Prior to call being placed patient stated that her must be talking to other females and that is the reason he was not answering the phone, this nurse tried to explain that we have to wait on the scoop operator to connect the call. Safety maintained [facility] CARECOORDon 02-23-2023 CARECOORD IMM letter givne to patient. [facility] COMPREHENSIVE METABOLIC PANE Lenin 02-23-2023 Albumin [Mass/Vol] 3.9 g/dL Normal 3.5-5.0 [facility] Comment on above: Performed By: #### L AB18, [id number] #### Official Greeter: ION MOURA ([id number]) [facility] ([facility]) [address] [place] [address] ALP [Catalytic activity/Vol] 78 U/L Normal 38-126 [facility] Comment on above: Performed By: #### L AB18, [id number] #### Official Greeter: ION MOURA ([id number]) [facility] ([facility]) [address] [place] [address] [place] ALT [Catalytic activity/Vol] 39 U/L High 0-34 [facility] Comment on above: Performed By: #### L AB18, [id number] #### Official Greeter: ION MOURA ([id number]) [facility] ([facility]) [address] [place] [address] [place] Anion gap [Moles/Vol] 8 mmol/L Normal 3-13 [facility] Comment on above: Performed By: #### L AB18, [id number] #### Official Greeter: ION MOURA ([id number]) [facility] ([facility]) [address] [place] [address] [place] AST [Catalytic activity/Vol] 41 U/L Normal 15-46 [facility] Comment on above: Performed By: #### L AB18, [id number] #### Official Greeter: ION MOURA ([id number]) [facility] ([facility]) [address] [place] [address] [place] Bilirubin [Mass/Vol] 0.5 mg/dL Normal 0.2-1.3 [facility] Comment on above: Performed By: #### L AB18, [id number] #### Official Greeter: ION MOURA ([id number]) [facility] ([facility]) [address] [place] [address] [place] Calcium [Mass/Vol] 9.4 mg/dL Normal 8.4-10.4 [facility] Comment on above: Performed By: #### L AB18, [id number] #### Official Greeter: ION MOURA ([id number]) [facility] ([facility]) [address] [place] [address] [place] Chloride [Moles/Vol] 101 mmol/L Normal 98-107 [facility] Comment on above: Performed By: #### L AB18, [id number] #### Official Greeter: ION MOURA ([id number]) [facility] ([facility]) [address] [place] [address] [place] CO2 [Moles/Vol] 25 mmol/L Normal 22-30 [facility] Comment on above: Performed By: #### L AB18, [id number] #### Official Greeter: ION MOURA ([id number]) [facility] ([facility]) [address] [place] [address] Creatinine [Mass/Vol] 0.44 mg/dL Low 0.52-1.04 [facility] Comment on above: Performed By: #### L AB18, [id number] #### Official Greeter: ION MOURA ([id number]) [facility] ([facility]) [address] [place] [address] GLOMERULAR FILTRATION RATE ML/MIN/1.73 SQ M.PREDICTED >90.0 Normal >60.0 [facility] Comment on above: Result Comment: Calc ulation based on the Chronic Kidney Disease Epidemiology Collaboration (CKD-EPI) equation refit without adjustment for race Performed By: #### L AB18, [id number] #### Official Greeter: ION MOURA ([id number]) [facility] ([facility]) [address] [place] [address] [place] Glucose [Mass/Vol] 185 mg/dL High 70-100 [facility] Comment on above: Performed By: #### L AB18, [id number] #### Official Greeter: ION MOURA ([id number]) [facility]) [address] [place] [address] [place] Potassium [Moles/Vol] 4.0 mmol/L Normal 3.5-5.1 [facility] Comment on above: Performed By: #### L AB18, [id number] #### Official Greeter: ION MOURA ([id number]) [facility] ([facility]) [address] [place] [address] [place] Protein [Mass/Vol] 6.9 g/dL Normal 6.3-8.2 [facility] Comment on above: Performed By: #### L AB18, [id number] #### Official Greeter: ION MOURA ([id number]) [facility] ([facility]) [address] [place] [address] [place] Sodium [Moles/Vol] 134 mmol/L Low 135-145 [facility] Comment on above: Performed By: #### L AB18, [id number] #### Official Greeter: ION MOURA ([id number]) [facility]) [address] [place] [address] Urea nitrogen [Mass/Vol] 11 mg/dL Normal - [facility] Comment on above: Performed By: #### L AB18, [id number] #### Official Greeter: ION MOURA ([id number]) [facility] ([facility]) [address] [place] [address] IDNon 02-23-2023 IDN Problem: Knowledge D eficit Goal: Patient/family/caregiver demonstrates understanding of disease process, treatment plan, medications, and discharge instructions Outcome: Progressing Problem: Potential for Compromised Skin Integrity Goal: Skin Integrity is Maintained or Improved Outcome: Progressing Goal: Nutritional status is improving Outcome: Progressing Problem: Urinary Incontinence Goal: Perineal skin integrity is maintained or improved Outcome: Progressing Problem: Problem Interventions Goal: Dietary Supplements Outcome: Progressing [facility] Progress Noteon 02-23-2023 Progress Note Unable to get a bm s ample. +flatus. Given miralax this morning. States pain has eased up. Pain not mentioned, unless I ask. No obvious pain with moving, standing, transferring from wheel chair to bed. Withdrawn to room most of day. Poor appetite. Supper in dining irving. Appears to be morn interested in supper. Did state hungry. Better than 75%of supper consumed. Ate soup, meat, potatoes, ice cream,peaches. States she is not thinking about si/hi or feeling that she does not want to live. Did states she is unsure if the thought would return once she is home. Had a visit today and upon returning was smiling. Cooperative with staff. Less needy this shift from yesterday. Increased strength in taking steps in room to chair, sink or toilet. Able to stand to at sink to brush teeth. Normal [facility] Progress Note Urine sample collect ed, Dr. Blair notified of results. Patient continues to c/o pain to left lower abdomin, KUB and CMP ordered per Dr. Blair. Patient with diarrhea x4 episodes, c.diff and GI panel ordered, to be collected if pt continues with diarrhea. Safety maintained Normal [facility] COMPLETE URINALYSISon 2022 BACTERIA (#/HPF) IN URINE Few Abnormal Negative [facility] Comment on above: Performed By: #### L AB18, [id number] #### Official Greeter: ION MOURA ([id number]) [facility]) [address] [place] [address] BILIRUBIN, TOTAL PRESENCE IN URINE Negative Normal Negative [facility] Comment on above: Performed By: #### L AB18, [id number] #### Official Greeter: ION MOURA ([id number]) [facility]) [address] [place] [address] Clarity (U) Clear Normal Clear [facility] Comment on above: Performed By: #### L AB18, [id number] #### Official Greeter: ION MOURA ([id number]) [facility]) [address] [place] [address] Color (U) Colorless Normal Lt. Yellow [facility] Comment on above: Performed By: #### L AB18, [id number] #### Official Greeter: ION MOURA ([id number]) [facility]) [address] [place] [address] GLUCOSE (MG/DL) IN URINE Normal Normal Normal (<70) [facility] Comment on above: Performed By: #### L AB18, [id number] #### Official Greeter: ION MOURA ([id number]) [facility]) [address] [place] [address] HEMOGLOBIN PRESENCE IN URINE Negative Normal Negative [facility] Comment on above: Performed By: #### L AB18, [id number] #### Official Greeter: ION MOURA ([id number]) [facility]) [address] [place] [address] HYALINE CASTS (#/LPF) IN URINE SEDIMENT BY MICROSCOPY Negative Normal Negative [facility] Comment on above: Performed By: #### L AB18, [id number] #### Official Greeter: ION MOURA ([id number]) [facility]) [address] [place] [address] Ketones Ql (U) Negative Normal Negative [facility] Comment on above: Performed By: #### L AB18, [id number] #### Official Greeter: ION MOURA ([id number]) [facility] ([facility]) [address] [place] [address] LEUKOCYTE ESTERASE PRESENCE IN URINE BY TEST STRIP 75 Rosey/uL Abnormal Negative [facility] Comment on above: Performed By: #### L AB18, [id number] #### Official Greeter: ION MOURA ([id number]) [facility] ([facility]) [address] [place] [address] [place] MUCUS (#/LPF) IN URINE SEDIMENT Few Normal Negative [facility] Comment on above: Performed By: #### L AB18, [id number] #### Official Greeter: ION OMURA ([id number]) [facility] ([facility]) [address] [place] [address] NITRITE PRESENCE IN URINE Negative Normal Negative [facility] Comment on above: Performed By: #### L AB18, [id number] #### Official Greeter: ION MOURA ([id number]) [facility] ([facility]) [address] [place] [address] pH (U) 6.0 [pH] Normal 5.0-8.0 [facility] Comment on above: Performed By: #### L AB18, [id number] #### Official Greeter: ION MOURA ([id number]) [facility] ([facility]) [address] [place] [address] Protein (U) [Mass/Vol] Negative Normal Negative [facility] Comment on above: Performed By: #### L AB18, [id number] #### Official Greeter: ION MOURA ([id number]) [facility] ([facility]) [address] [place] [address] [place] RBC (#/HPF) IN URINE SEDIMENT 0-2 Normal 0-2 [facility] Comment on above: Performed By: #### L AB18, [id number] #### Official Greeter: ION OMURA ([id number]) [facility]) [address] [place] [address] Specific gravity (U) [Rel density] 1.007 Normal 1.005-1.030 [facility] Comment on above: Performed By: #### L [id number], [id number] #### Official Greeter: ION MOURA ([id number]) [facility]) [address] [place] [address] SQUAMOUS EPITHELIAL CELLS (#/HPF) IN URINE SEDIMENT 0-2 Normal 3-5 [facility] Comment on above: Performed By: #### L [id number], [id number] #### Official Greeter: ION MOURA ([id number]) [facility]) [address] [place] [address] UROBILINOGEN (MG/DL) IN URINE Normal Normal Normal (0-1) [facility] Comment on above: Performed By: #### L [id number], [id number] #### Official Greeter: ION MOURA ([id number]) [facility]) [address] [place] [address] WBC (LEUKOCYTE) (#/HPF) IN URINE SEDIMENT 3-5 Normal 0-5 [facility] Comment on above: Performed By: #### L AB18, [id number] #### Official Greeter: ION MOURA ([id number]) [address] [place] MODIFIED BARIUM WITH VIDE O AND SPEECHon 02-22-2023 FL MODIFIED BARIUM WITH VIDEO AND SPEECH Patient Name: KARRI PIEDRA : 1940 Exam Date/Time: 02/22/2023 09:42 Procedure: FL MODIFIED BARIUM WITH VIDEO AND SPEECH Ordering Provider: GASCA SIMONA Reason For Exam: Dysphagia MODIFIED BARIUM SWALLOW (COOKIE SWALLOW) CLINICAL INDICATION: Dysphagia. Tardive dyskinesia. COMPARISON: None. FLUOROSCOPY DOSE: Ka,r= 18.16 mGy TECHNIQUE: The procedure was performed in conjunction with speech therapy. Barium mixtures of various consistencies were given under fluoroscopy with the patient in the sitting lateral position. FINDINGS: Preparatory phase shows decreased cognition and decreased bolus formation. There is increased oral holding. Oral phase shows spillage to the vallecula and piriform sinuses, and decreased AP transit. Pharyngeal phase shows increased residuals in the valleculae and weakness of tongue base. There is coating the back of the epiglottis. There is mild hypertrophy of the cricopharyngeus. There is no vocal cord penetration or airway aspiration. IMPRESSION: 1. No vocal cord penetration or airway aspiration. 2. Mild hypertrophy of the cricopharyngeus. This is of unclear clinical significance. Please refer to the speech pathologist's report for complete findings, additional comments and recommendation Report Dictated on Electronically Signed By: Vikram Umaña MD Electronically Signed Date/Time: 02/22/2023 11:21 AM EST [facility] IDNon 02-22-2023 IDN Stopping the Ensure and initiating 1 van magic cup bid 2p/HS [facility] IDN Problem: Knowledge D eficit Goal: Patient/family/caregiver demonstrates understanding of disease process, treatment plan, medications, and discharge instructions Outcome: Progressing Problem: Potential for Compromised Skin Integrity Goal: Nutritional status is improving Outcome: Progressing Problem: Problem Interventions Goal: Dietary Supplements Outcome: Progressing [facility] Progress Noteon 02-22-2023 Progress Note Sitting up in bed ea ting supper, denies n/v. Secure chat to JUAN Schwab ordered. [facility] Progress Note Complaint of continu ous abdominal pain that is left side below waist to the back. States that this pain increases when standing. This pain increases when she stands or walks a few steps. States last bm was yesterday. Tonight complaint of feeling dizzy while in bed. Requesting supper in bed. Rates the pain a 10 while moving and almost a 10 at rest. States the pain has been continuous since Friday. [facility] Progress Note Nutrition Assessment Type and Reason for Visit: Reassess Nutrition Recommendations/Plan: Will stop the Ensure and initiate: 1 van. Magic cup bid 2p/HS Will monitor po intake. Malnutrition Assessment: Malnutrition Status: At risk for malnutrition (Comment) Context: Chronic Illness Nutrition Assessment: Per chart: dysphagia tx. w/FIXED INCOME MANAGER, pureed solid w/thin liquids. Per pt.: in wheel chair in buffet line, doesn't want Ensure, willing to try Magic cups, had BM yesterday Estimated Daily Nutrient Needs: Energy Requirements Based On: Kcal/kg Weight Used for Energy Requirements: Admission Weight for Energy Calculation (kg): 62 kg Total Energy Requirements (kcals/day): 1550 - 1860 mls Weight Used for Protein Requirements: Admission Weight in Kg Used for Protein Requirements: 62 kg Estimated Total Protein (g/day): 68 - 74 gms protein Estimated Daily Total Fluid (ml/day): 1550 mls Nutrition Related Findings: oropharyngeal dysphagia Wound Type: None Current Nutrition Therapies: Adult diet Dysphagia - Pureed Current Oral Intake Average Meal Intake: 26-50% Average Supplements Intake: Refusing to take Additional Calorie Sources Additional Calorie Sources: 1 van. Ensure + bid 2p/HS Anthropometric Measures: Height: 162.6 cm (5' 4) (per pt.) Current Body Weight: 61.7 kg (136 lb) Admission Body Weight: 61.7 kg (136 lb) Usual Body Weight: 61.7 kg (136 lb) (per visitor, pt. looks the same) % Weight Change (Calculated): 0 [place] Body Weight (lbs) (Calculated): 120 lbs [place] Body Weight (Kg) (Calculated): 55 kg % [place] Body Weight (Calculated): 113.3 % BMI (kg/m2) (Calculated): 23.3 Weight Adjustment For: No Adjustment BMI Categories: Normal Weight (BMI 22.0 to 24.9) age over 65 Nutrition Diagnosis: (02/22 Glu 147, elevated, improved) related to psychological cause or life stress, endocrine dysfuntion, swallowing difficulty (dysphagia, tardive dyskinesia, + tracheostomy) as evidenced by lab values, swallow study results, mild loss of subcutaneous fat, mild muscle loss (s/p bedside swallowing evaluation) Nutrition Interventions: Nutrition Education/Counseling: Education not indicated Coordination of Nutrition Care: Coordination of Care, Continue to monitor while inpatient, Speech Therapy Plan of Care discussed with: pt. Goals: Previous Goal Met: Progress towards Goal(s) Declining (doesn't want Ensure) Goals: PO intake 50% or greater, other (specify) Specify Other Goals: of supplement Nutrition Monitoring and Evaluation: Behavioral-Environmental Outcomes: Beliefs and Attitutes, Readiness for Change Food/Nutrient Intake Outcomes: Supplement Intake, Food and Nutrient Intake Physical Signs/Symptoms Outcomes: Biochemical Data, GI Status, Fluid Status or Edema, Hemodynamic Status, Meal Time Behavior, Chewing or Swallowing, Nutrition Focused Physical Findings, Skin, Weight Discharge Planning: Assist with food insecurity, Continue current diet, Continue Oral Nutrition Supplement Adelaida Duran RD Contact: via [employer] chat or office *[phone] [facility] Progress Note Speech-Billet Heater Operator ology SPEECH LANGUAGE PATHOLOGY [facility] Modified Barium Swallow Study Patient Name: Karri Piedra Evaluation Date: 02/22/2023 Date of : 1940 Admission Date: 02/18/2023 6:15 PM Age: 82 y.o. Room/Bed: S4113/S4113 A IMPRESSION: The patient presents with mild - moderate oral and mild pharyngeal phase dysphagia associated with reduced/disorganized bolus formation and AP transit and mild base of tongue weakness. There was observed penetration into the laryngeal vestibule above the level of the vocal cords with - thin liquid via large straw drink. There is no vocal cord penetration or aspiration. RECOMMENDATION: Recommend Regular solids and Thin liquids and meds as tolerated and the following precautions for management of reduced esophageal motility: - Upright positioning and for 30 - 60 minutes after PO - Slow rate of intake - Small bites/sips - Alternate solid and liquids - Swallow x 2 per bolus No further skilled acute FIXED INCOME MANAGER indicated at this time. Please reconsult should changes occur. Patient may benefit from additional investigation into the esophageal phase of the swallow if not recently completed. General Initial MBS completed to assess the efficiency of her swallow function, rule out aspiration, and make recommendations regarding safe dietary consistencies, effective compensatory strategies, and safe eating environment. Brief Hospital course: Karri is a 82 y.o. female pmhx below who presents to the hospital with increased confusion and suicidal thoughts. The patient has stopped taking her medications and per the patient states that she has not taken her medications for several weeks. She denies any chest pain or shortness of breath denies any acute pain. The patient is depressed with thoughts of suicidal ideation. The patient has a history of tardive dyskinesia she has not taken her medications and therefore her tardive dyskinesia has increased making it difficult for her to eat and swallow foods. Acute, acute on chronic, unstable/uncontrolled chronic problems/diagnoses: Depression Suicidal ideation Stable chronic problems affecting care, new non-acute diagnoses: Hyperlipidemia Diabetes with insulin requirement Hypertension Tardive dyskinesia Dysphagia GERD Radiologist: Dr. Umaña / Fanny Verma Prior MBSS?: No Baseline Diet: Regular Current diet: Dietary Orders (From admission, onward) Start Ordered 02/21/23 1501 Adult diet Dysphagia - Pureed Diet effective now Question: Diet type Answer: Dysphagia - Pureed 02/21/23 1500 02/19/23 1642 Supplement:PM Snack, HS Snack; Vanilla Ensure High Protein Until discontinued Question Answer Comment Frequency PM Snack Frequency HS Snack Select supplement: Vanilla Ensure High Protein Comment or ENSURE + vanilla 02/19/23 1641 Textures tested: - thin liquid, (cup edge, straw, self administered) - puree, (teaspoon, fed by clinician) - regular solids - fed by clinician - self administered Patient position: lateral Past Medical History: Past Medical History: Diagnosis Date Aphasia 02/19/2023 Chronic insomnia 02/19/2023 Confusion 02/19/2023 Depression Diabetes mellitus (HCC) Dysphagia 02/19/2023 Dysphagia GERD (gastroesophageal reflux disease) HLD (hyperlipidemia) Hypertension Tardive dyskinesia 02/19/2023 Tardive dyskinesia Past Surgical History: No past surgical history on file. Admission Diagnosis: Patient Active Problem List Diagnosis Date Noted Depression with suicidal ideation 02/19/2023 Suicidal behavior without attempted self-injury 02/19/2023 Aphasia 02/19/2023 Dysphagia 02/19/2023 Confusion 02/19/2023 Chronic insomnia 02/19/2023 Tardive dyskinesia 02/19/2023 Oral Phase Patient presents with mild - moderate oral phase dysphagia associated with reduced/disorganized bolus formation and AP transit with - thin liquid, (cup edge, straw) - puree, (teaspoon) and regular solids. Feel the taste of barium contributes to patient's slow bolus formation and AP transit. Mastication of the [employer] brand cookie is WFL. There is mild oral residue after a large straw drink of thin liquid barium that patient clears with a spontaneous re-swallow. Thin liquid did extend into the piriforms prior to the onset of the swallow. Pharyngeal Phase The onset of the swallow is prompt. There is mild base of tongue weakness. Valleculae residue is mild and does not accumulate. There is penetration into the laryngeal vestibule above the level of the vocal cords with thin liquid (especially with large straw drink of thin liquid barium). However, there is no vocal cord penetration or aspiration. Patient achieves full pharyngeal clearance with a spontaneous re-swallow. Esophageal Phase The esophagus was visualized below the level of the UES. Noted: cricopharyngeal hypertrophy and the esophagus is slow to empty. There is visible stasis at th (more content not included)... Normal [facility] Progress Note Patient is A&O x3, d enies SI/HI/AVH. Pt polite and friendly, spent most of evening in day room listening to music and speaking on the phone with . Cooperative with care and med compliant. Pt voices L side lower abdominal/groin area pain, on palpation, area feels firm. Dr. Blair aware. Up x1 assist, gait unsteady, primarily uses wheelchair for mobility. Pt continent of bowel and bladder. Pt presently resting in bed quietly, no other concerns voiced at this time. Safety maintained. Normal [facility] CARECOORDon 02-21-2023 [employer] PASS R submitted ear lier today. Normal [facility] CARECOORD TCT son, updated, he will try to get name of her neurologist, unclear how she developed TD Normal [facility] CARECOORD TCT son, l.m Normal [facility] Progress Noteon 02-21-2023 Progress Note PHYSICAL THERAPY [facility] Treatment Note Name/MRN: Karri Piedra ([id number]) Date of : 1940 Age: 82 y.o. Room/Bed: S4-113/S4-113 A Discharge Recommendation: Care Home Facility Other: tbd Prior Level of Function ADL Assistance: Independent Ambulation Assistance: Independent Device(s) used: front wheeled walker Transfer Assistance: Independent Assessment Pt present in wheelchair in common room. Ambulated 50 feet x3 with Mod A using FWW with gait deviations and rest breaks as needed. Required consistent verbal cueing to take continuous steps. Completed 2 stand pivot transfers from WC to chair with Mod A of 1. Multiple occasions of LOB throughout the session with verbal cues required to correct. Pt remains at high fall risk. Recommend patient discharges to SNF to continue therapy. Subjective Pt pleasant and cooperative with therapy. Pain: Pt denies any current pain. Medical Precautions: No active isolations Proper PPE donned/doffed in accordance with facility standards. Fall Risk: Brennan Fall Risk Score: 80 (High Risk) Precautions/Restrictions: fall risk Overall Cognitive Status: Exceptions - Following commands: follows one step commands with increased time - Problem solving: assistance required to generate solutions and assistance required to implement solutions - Initiation: requires cues for all - Sequencing: requires cues for all Overall Orientation Status: Oriented to Person Family/Caregiver Present: none Objective Ambulation Ambulation 1 Assistive device(s) used: front wheeled walker Assist level: Mod Assist Distance (ft): 50 Quality of gait: step to pattern, uneven step length, slow maximino, instability through all phases Ambulation 2 Assistive device(s) used: front wheeled walker Assist level: Mod Assist Distance (ft): 50 Quality of gait: reciprocal stepping, slow maximino, postural sway, instability through all phases Patient able to complete continuous, reciprocal stepping with consistent verbal cueing. Ambulation 3 Assistive device(s) used: front wheeled walker Assist level: Mod Assist Distance (ft): 50 Quality of gait: reciprocal stepping, slow maximino, postural sway, instability through all phases Patient able to complete continuous, reciprocal stepping with consistent verbal cueing. Transfers/Mobility Sit to stand: Mod Assist Stand to sit: Min Assist Stand pivot: Mod Assist Pt transferred from WC to chair x2 with Mod A of 1 using gait belt. Device(s) used: none Plan Continue acute PT per plan of care. Safety/Education Safety Safety Devices in place: left in chair, nurse notified, and seated in common room. Restraints: No Education Education Given To: patient Education Provided: PT Role and PT Goals Education Method: Verbal Barriers to Learning: Cognition Education Outcome: Verbalized Understanding and Continued Education Needed Outcome Measures AM-PAC AM-PAC Inpatient Mobility Raw Score (No Stairs) : 15 JH-HLM JH-HLM Score: Walked 25 ft or more (i.e. walked outside of room) Goals Patient Stated Goal: To go home. Encounter Problems Encounter Problems (Active) Balance Patient will maintain static standing balance for 5 minutes with supervision in order to demonstrate decreased risk of falling. (Progressing) Start: 02/20/23 Expected End: 03/20/23 Mobility Patient will ambulate 150 feet with supervision and rolling walker in order to improve safety and independence with mobility. (Progressing) Start: 02/20/23 Expected End: 03/20/23 Transfers Patient will perform bed mobility with supervision in order to improve independence and prepare for out of bed mobility. (Not Addressed) Start: 02/20/23 Expected End: 03/20/23 Patient will complete functional transfer with rolling walker with supervision in order to prepare for ambulation. (Progressing) Start: 02/20/23 Expected End: 03/20/23 Therapy Time Individual Co-treatment Time In 1336 Time Out 1400 Minutes 24 Timed Code Treatment Minutes: 24 Minutes (Gait, FA) Senia Morrell, SPT [facility] Progress Note Speech-Billet Heater Operator ology SPEECH LANGUAGE PATHOLOGY [facility] Dysphagia Treatment Note Patient Name: Karri Piedra Evaluation Date: 02/21/2023 Date of : 1940 Admission Date: 02/18/2023 6:15 PM Age: 82 y.o. Room/Bed: S4113/S4113 A Subjective Patient alert and cooperative. Seen upright in common room chair. Answers all basic questions with clear, strong vocal quality. Follows all basic commands. No visitors at bedside. Per RN, patient preparing to go downstairs for visitation. PT just finished working with patient. Spoke with RN who cleared pt for treatment. Current Diet: Dietary Orders (From admission, onward) Start Ordered 02/21/23 1306 Adult diet Easy to Chew Diet effective now Question: Diet type Answer: Easy to Chew 02/21/23 1306 02/19/23 1642 Supplement:PM Snack, HS Snack; Vanilla Ensure High Protein Until discontinued Question Answer Comment Frequency PM Snack Frequency HS Snack Select supplement: Vanilla Ensure High Protein Comment or ENSURE + vanilla 02/19/23 1641 Aspiration Precautions: - Upright positioning for all PO intake - Slow rate of intake - Small bites/sips Oxygen: Oxygen Therapy: None (Room air) Pain: RN managing pain. PPE Worn: surgical mask, gloves Objective & Assessment Dysphagia Treatment # of Activities: 1 Dysphagia Activity 1: Assess diet tolerance, upgraded PO trials Patient accepted trials of puree solids and thin liquids. Patient revealed clinically adequate oral bolus control, complete oral clearance, and no overt s/sx of aspiration or penetration. Patient with notable anxiety surrounding swallowing, repeatedly states she is so nervous she's going to choke. Much encouragement provided. Feel patient would benefit from MBSS next date to ensure swallow safety, determine safest diet, and educate patient on results of same to decrease anxiety surrounding PO intake. Plan & Recommendations Plan: Continue acute FIXED INCOME MANAGER therapy per initial plan of care and established goals. Recommend Pureed solids and Thin liquids and meds whole in puree, crushed in puree and the following precautions: - Upright positioning for all PO intake - Slow rate of intake - Small bites/sips - Alternate solid and liquids Recommend modified barium swallow study (MBSS) to further assess. D/C Recommendations: to be determined Education Education Given: swallowing strategies, diet recommendations, potential for additional diagnostic testing Given To: patient and RN Response: verbalizes understanding Goals Patient Stated Goal: Do swallow test to make sure swallowing is okay Encounter Problems Encounter Problems (Active) Swallowing Patient will tolerate the least restrictive diet consistency to allow for safe consumption of daily meals (Progressing) Start: 02/19/23 Expected End: 03/05/23 Patient will tolerate recommended food and liquid consistencies without clinical signs and symptoms of aspirations (Progressing) Start: 02/19/23 Expected End: 03/05/23 Patient will participate in instrumental assessment of swallowing as appropriate (Initiated) Start: 02/19/23 Expected End: 03/05/23 Therapy Time FIXED INCOME MANAGER Individual Minutes Time In: 1355 Time Out: 1405 Minutes: 10 Emy Castillo CCC-FIXED INCOME MANAGER [facility] Progress Note Pt approached in din ing area for morning meds and assessment. She denies SI/HI/AVH and is compliant with meds crushed in pudding. She is overall polite and cooperative. Affect is worried and mood is anxious and depressed. She is A&O x3 and uses a wheelchair. Patient encouraged to seek out staff with questions or concerns. 1700: Kiya performed PASSR assessment this evening. [facility] Progress Note Patient is A&O x4, d enies SI/HI/AVH. Friendly and cooperative with care, med compliant. Pt has expressive aphasia and tardive dyskinesia, has trouble speaking with delayed responses. PRN Trazadone given to help pt sleep, though patient has not slept so far this shift. Pt uses call light about every hour to ask I was wondering if I got my Remeron, I need my sleeping medicine. Pt forgetful and pleasantly confused. Up x2 assist, uses wheelchair for mobility. Gait unsteady without assistance, continent of bowel and bladder. Pt complained of lower abdominal/groin area pain, small hard lump felt on palpation. Pt described needing to hold it in with hand when moving around, Dr. Blair notified. Pt presently laying in bed, no other concerns voiced at this time. Safety maintained. Normal [facility] CARECOORDon 02-20-[address] Woods, l/m Normal [facility] HEMOGLOBIN A1Con 02-20-2023 Glucose [Mass/Vol] 174 mg/dL Normal [facility] Comment on above: Order Comment: If no t done within last 12 months Performed By: #### L AB18, [id number] #### Official Greeter: ION MOURA ([id number]) [facility] ([facility]) [address] [place] [address] HbA1c (Bld) [Mass fraction] 7.7 % High <5.7 [facility] Comment on above: Order Comment: If no t done within last 12 months Result Comment: Norm al less than 5.7% Prediabetes 5.7% to 6.4% Diabetes 6.5% or higher --HgbA1C levels may not be accurate in patients who have renal disease, received recent blood transfusions, are anemic, or who have dyshemoglobinemia. Performed By: #### L AB18, [id number] #### Official Greeter: ION MOURA ([id number]) [facility] ([facility]) [address] [place] [address] IDNon 02-20-2023 IDN Problem: Knowledge D eficit Goal: Patient/family/caregiver demonstrates understanding of disease process, treatment plan, medications, and discharge instructions Outcome: Progressing Problem: Potential for Compromised Skin Integrity Goal: Nutritional status is improving Outcome: Progressing Problem: Problem Interventions Goal: Dietary Supplements Outcome: Progressing Normal [facility] IDN Problem: Knowledge D eficit Goal: Patient/family/caregiver demonstrates understanding of disease process, treatment plan, medications, and discharge instructions Outcome: Progressing Problem: Potential for Compromised Skin Integrity Goal: Skin Integrity is Maintained or Improved Outcome: Progressing Goal: Nutritional status is improving Outcome: Progressing Problem: Urinary Incontinence Goal: Perineal skin integrity is maintained or improved Outcome: Progressing Problem: Problem Interventions Goal: Dietary Supplements Outcome: Progressing Normal [facility] LIPID PANELon 02-20-2023 Cholesterol [Mass/Vol] 130 mg/dL Normal <200 [facility] Comment on above: Order Comment: If no t done within last 12 months Performed By: #### L AB18, [id number] #### Official Greeter: ION MOURA ([id number]) [facility] ([facility]) [address] [place] [address] Cholesterol in HDL [Mass/Vol] 40 mg/dL Normal 40-60 [facility] Comment on above: Order Comment: If no t done within last 12 months Performed By: #### L AB18, [id number] #### Official Greeter: ION MOURA ([id number]) [facility] ([facility]) [address] [place] [address] Cholesterol.total/ Cholesterol in HDL [Mass ratio] 3 {ratio} Normal [facility] Comment on above: Order Comment: If no t done within last 12 months Result Comment: Ref Range: < 3 Low Risk for CHD 3-6 Mod Risk for CHD > 6 High Risk for CHD Performed By: #### L AB18, [id number] #### Official Greeter: ION MOURA ([id number]) [facility] ([facility]) [address] [place] [address] LOW DENSITY LIPOPROTEIN 68 mg/dL Normal 0-<100 [facility] Comment on above: Order Comment: If no t done within last 12 months Performed By: #### L AB18, [id number] #### Official Greeter: ION MOURA ([id number]) [facility]) [address] [place] [address] Triglyceride [Mass/Vol] 111 mg/dL Normal <150 [facility] Comment on above: Order Comment: If no t done within last 12 months Performed By: #### L [id number], [id number] #### Official Greeter: ION MOURA ([id number]) [facility] ([facility]) [address] Progress Noteon 02-20-2023 Progress Note Chart and vitals rev iewed and discussed with nursing. No changes to medical management today. Patient seen in her room today she remains depressed. Her brought in her Austedo for her tardive dyskinesia today and hope to have this initiated today or tomorrow. Patient still having some difficulty with eating due to choking and coughing because of her tardive dyskinesia. Will reassess tomorrow after she is reinitiated on her medicine. BP 132/61 Pulse 77 Temp 37.1 ?C (98.7 ?F) (Temporal) Resp 16 Ht 5' 4 (1.626 m) Comment: per pt. Wt 136 lb (61.7 kg) SpO2 99% BMI 23.34 kg/m? Nonbillable visit today Normal [facility] Progress Note Assumed care of pt a t 1100. Per report, pt is med compliant with meds crushed in pudding. She remains depressed. Overall cooperative. This RN spoke with on the phone. He is to bring home TD meds when he comes to visit pt at 1400 today. Denies SI/HI/AVH. Patient encouraged to seek out staff with questions or concerns. 1800: Pt's Austedo for TD brought by . Taken to pharmacy for verification by Cassy BIRCH. 1850: Provider notified of elevated BP. Shift change at 1900, will pass on to oncoming nurse to recheck pt's blood pressure. Normal [facility] Progress Note Speech-Billet Heater Operator ology SPEECH LANGUAGE PATHOLOGY [facility] Dysphagia Treatment Note Patient Name: Karri Piedra Evaluation Date: 02/20/2023 Date of : 1940 Admission Date: 02/18/2023 6:15 PM Age: 82 y.o. Room/Bed: S4-113/S4-113 A Subjective Patient alert and cooperative. Seen upright in bed. Answers all basic questions with clear vocal quality. Follows all basic commands. No visitors at bedside. Spoke with RN who cleared pt for treatment. Current Diet: Dietary Orders (From admission, onward) Start Ordered 02/19/23 1642 Supplement:PM Snack, HS Snack; Vanilla Ensure High Protein Until discontinued Question Answer Comment Frequency PM Snack Frequency HS Snack Select supplement: Vanilla Ensure High Protein Comment or ENSURE + vanilla 02/19/23 1641 02/19/23 1413 Adult diet Full liquid Diet effective now Question: Diet type Answer: Full liquid 02/19/23 1413 Aspiration Precautions: - Upright positioning for all PO intake - Slow rate of intake - Small bites/sips Oxygen: Oxygen Therapy: None (Room air) Pain: RN managing pain. PPE Worn: gloves Objective & Assessment Dysphagia Treatment # of Activities: 1 Dysphagia Activity 1: Assess diet tolerance Patient accepted sips of thin liquids. Trials met with clinically adequate oral bolus control, no overt s/sx of aspiration or penetration, and complete oral clearance. The swallow is audible, and patient takes a voluntary delay prior to initiating swallow. Patient and chart review endorse good tolerance of medications this morning. Will re-assess patient with solids next date as her is reportedly bringing in her medications some time today. Plan & Recommendations Plan: Continue acute FIXED INCOME MANAGER therapy per initial plan of care and established goals. Recommend Full liquid diet and meds as tolerated and the following precautions: - Upright positioning for all PO intake - Slow rate of intake - Small bites/sips D/C Recommendations: to be determined Education Education Given: swallowing strategies, diet recommendations Given To: patient Response: verbalizes understanding Goals Patient Stated Goal: To have her bring in her medications Encounter Problems Encounter Problems (Active) Swallowing Patient will tolerate the least restrictive diet consistency to allow for safe consumption of daily meals (Initiated) Start: 02/19/23 Expected End: 03/05/23 Patient will tolerate recommended food and liquid consistencies without clinical signs and symptoms of aspirations (Progressing) Start: 02/19/23 Expected End: 03/05/23 Patient will participate in instrumental assessment of swallowing as appropriate (Initiated) Start: 02/19/23 Expected End: 03/05/23 Therapy Time FIXED INCOME MANAGER Individual Minutes Time In: 0800 Time Out: 0809 Minutes: 9 Emy Castillo CCC-FIXED INCOME MANAGER [facility] Progress Note Reviewed initial act ivity therapy assessment and pt chart review for treatment planning. Pt has not attended group at this time. Activities Therapy Treatment Plan Goal(s): treatment involvement Objective(s): attend group and actively participate in treatment Intervention: Pt will be offered 1 music therapy or recreation therapy group daily and 2 diversionary milieu groups. Signature Racheal Mcbride NM- Normal [facility] Progress Note Patient alert and or iented x4, med complaint crushed in vanilla pudding, denies pain/SI/HI/AH/VH, pleasant mood, x1 assist to wheelchair, PRN Trazodone administered per pt request, cont of bowel and bladder, uses call light appropriately. Safety maintain Normal [facility] THYROID STIMULATING HORMONEo n 02-20-2023 THYROID STIMULATING HORMONE 1.731 uIU/mL Normal 0.465-4.680 [facility] Comment on above: Performed By: #### L [id number], [id number] #### Official Greeter: ION MOURA ([id number]) [facility] ([facility]) [address] [place] [address] [facility] 02-19-2023 [facility] Psycho-Social Assessment (Social Work) Date: 02/19/2023 Patient Name: Karri Piedra : 1940 Identifying Information: 82-year-old very female presents from psychiatry. Had made suicidal statements. Presenting Problem: Patient has tardive dyskinesia unable to participate in interview once her contacted. Limited historian. 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 Psychiatric History: Sees a Dr. Uvaldo Dunlap. Substance Abuse/Use: None known. Medical/Self-care Issues: Cognitive. Legal/Trauma/ History: Unknown trauma legal history. Family Constellation/Childhood History: Lives with spouse Sami has a son named Aaron. Education/Work: Unknown. Cultural/Spirituality/Leisure : No cultural spiritual leisure issues. Support Systems/Collateral Information: Spouse and family are supportive. Patient is not able to sign at this time. C-SSRS Actual Attempt (Past 3 Months): No Actual Attempt (Lifetime): No Interrupted Attempts (Past 3 Months): No Interrupted Attempts (Lifetime): No Aborted or Self-Interrupted Attempt (Past 3 Months): No Aborted or Self-Interrupted Attempt (Lifetime): No Preparatory Acts or Behavior (Past 3 Months): No Preparatory Acts or Behavior (Lifetime): No Has subject engaged in non-suicidal self-injurious behavior? (Past 3 Months): No Has subject engaged in non-suicidal self-injurious behavior? (Lifetime): No Suicidal Ideation: Suicidal thoughts Activating Events (Recent): Recent loss(es) or other significant negative event(s) (legal, financial, relationship, etc.), Current or pending isolation or feeling alone Treatment History: Previous psychiatric diagnoses and treatments Clinical Status (Recent): Hopelessness, Major depressive episode, Chronic physical pain or other acute medical problem (HIV/AIDS, COPD, cancer, etc.), Methods for suicide available (gun, pills, etc.) Protective Factors (Recent): Supportive social network or family Describe any suicidal, self-injurious or aggressive behavior (include dates): Has expressed vague SI. Pt limited ability to particpate in interview. Plan: Spoke to patient's son Aaron will be for patient to go at least to short-term rehab. He will also attempt to find power of collections attorney paperwork for patient. Social work will continue remain available assist with discharge aftercare planning throughout patient's stay. Comment: Please note this report has been produced using speech recognition software and may contain errors related to that system including errors in grammar, punctuation, and spelling, as well as words and phrases that may be inappropriate. If there are any questions or concerns please feel free to contact the dictating provider for clarification. [facility] Consulton 02-19-2023 Consult [facility] [place] nsult Patient - Karri Piedra, Age - 82 y.o. - 1940 Room Number - @[email or web address]@ [facility] - Yumiko Gasca MD Primary Care Physician - No primary care provider on file. Date of Admission - 02/18/2023 6:15 PM Hospital Day - 0 Reason for Consult: Medical Management Chief Complaint Patient presents with Altered Mental Status Per patient and family patient has been increasingly confused over the last 4 weeks. Wandering around at night, refusing to take most of her medications. Sent here on the advice of her psychiatrist. Patient currently AxOx4. Also per family patient has made vague statements indicating suicidal thoughts. Patient son states he asked her what she wanted for Joe and patient stated, I wont be here for Joe. Patient denying SI/HI to me at this time. HISTORY OF PRESENT ILLNESS: Karri is a 82 y.o. female pmhx below who presents to the hospital with increased confusion and suicidal thoughts. The patient has stopped taking her medications and per the patient states that she has not taken her medications for several weeks. She denies any chest pain or shortness of breath denies any acute pain. The patient is depressed with thoughts of suicidal ideation. The patient has a history of tardive dyskinesia she has not taken her medications and therefore her tardive dyskinesia has increased making it difficult for her to eat and swallow foods. She is able to tolerate thin liquids. Labs reviewed and unremarkable with exception of elevated blood sugars and elevated LFTs. EKG shows normal sinus rhythm with old inferior myocardial infarction and a QTc of 427 ms. There are no old EKGs to compare. Patient denies any chest pain or shortness of breath, or abdominal pain. Hospital medicine will continue to follow Past Medical History: Past Medical History: Diagnosis Date Aphasia 02/19/2023 Chronic insomnia 02/19/2023 Confusion 02/19/2023 Depression Diabetes mellitus (HCC) Dysphagia 02/19/2023 Dysphagia HLD (hyperlipidemia) Hypertension Tardive dyskinesia 02/19/2023 Tardive dyskinesia Past Surgical History: No past surgical history on file. Medications: aspirin, 81 mg, Oral, Daily atorvastatin, 40 mg, Oral, Daily hydroCHLOROthiazide, 12.5 mg, Oral, Daily influenza, 0.5 mL, IntraMUSCular, Once insulin glargine, 18 Units, SubCUTAneous, Nightly insulin lispro, 0-6 Units, SubCUTAneous, TID WC And insulin lispro, 0-6 Units, SubCUTAneous, Nightly lisinopril, 20 mg, Oral, Daily metFORMIN, 500 mg, Oral, BID WC mirtazapine, 7.5 mg, Oral, Nightly pantoprazole, 40 mg, Oral, qAM AC prednisoLONE acetate, 1 drop, Both Eyes, Daily sertraline, 100 mg, Oral, BID timolol, 1 drop, Both Eyes, Daily PRN medications: acetaminophen OR acetaminophen, dextrose, dextrose, glucagon (rDNA), glucose, OLANZapine OR OLANZapine (ZyPREXA) 5 mg in sterile water 1 mL injection, polyethylene glycol (PEG) 3350, traZODone Allergies: Codeine and Morphine Social History: Social History Socioeconomic History Marital status: Spouse name: Not on file Number of children: Not on file Years of education: Not on file Highest education level: Not on file Occupational History Not on file Tobacco Use Smoking status: Not on file Smokeless tobacco: Not on file Substance and Sexual Activity Alcohol use: Not on file Drug use: Not on file Sexual activity: Not on file Other Topics Concern Not on file Social History Narrative Not on file Social Determinants of Health Financial Resource Strain: Low Risk (02/19/2023) Overall Financial Resource Strain (CARDIA) Difficulty of Paying Living Expenses: Not very hard Food Insecurity: No Food Insecurity (02/19/2023) Hunger Vital Sign Worried About Running Out of Food in the Last Year: Never true Ran Out of Food in the Last Year: Never true Transportation Needs: No Transportation Needs (02/19/2023) PRAPARE - Transportation Lack of Transportation (Medical): No Lack of Transportation (Non-Medical): No Physical Activity: Inactive (02/19/2023) Exercise Vital Sign Days of Exercise per Week: 0 days Minutes of Exercise per Session: 0 min Stress: Stress Concern Present (02/19/2023) [employer] - Occupational Stress Questionnaire Feeling of Stress : Very much Social Connections: Moderately Isolated (02/19/2023) Social Connection and Isolation Panel [NHANES] Frequency of Communication with Friends and Family: Once a week Frequency of Social Gatherings with Friends and Family: Never Attends Protestant Services: 1 to 4 times per year Active Member of Clubs or Organizations: No Attends Club or Organization Meetings: Never Marital Status: Intimate Partner Violence: At Risk (02/19/2023) Humiliation, Afraid, Rape, and Kick questionnaire Fear of Current or Ex-Partner: Yes Emotionally Abus (more content not included)... Normal [facility] Consult --------- Attestation signed by Navjot Lim MD at 02/21/2023 4:01 PM Patient staffed with me over the telephone. Reviewed resident's note and agree with plan. Internal Medicine: Med Team Initial Consult Karri Piedra : 1940(82 y.o.) Date: February 19, 2023 TEAM: A Attending: Dr. Lim Subjective: Chief Complaint: Suicidal Ideation HPI Karri Piedra is a 82 y.o. female with PMH hypertension, depression, diabetes that presented to [facility] on 02/18/2023 from home. Per ED signout and chart review, patient has had increasing confusion for the past four weeks and expressing vague passive suicidal ideation. Psychiatry was called first but wanted medical admission due to patient's presenting hypertension w/ SBP in the 190s. Patient was given HCTZ which improved her SBP to 170. Labs are unremarkable save for slight transaminitis (55/60 AST/ALT), CT head is normal. EKG does not have acute abnormalities. On evaluation, patient is joined by . They add additional history, stating that patient has not taken any of her medications for the past month save for insulin and remeron intermittently. She stopped taking medications due to feeling like she was having headaches from them, and has refused to restart them. Her has been trying to get her to take medications, but she persistently refused. Her medications were in a physical chart and included zoloft and HCTZ on brief review. Patient denies physical symptoms, abdominal pain, peripheral swelling, or other ROS. She states that she came into the hospital for help due to being depressed. Review of Systems Constitutional: Negative for chills and fever. Respiratory: Negative for cough, chest tightness, shortness of breath and wheezing. Cardiovascular: Negative for chest pain. Gastrointestinal: Negative for abdominal pain. Genitourinary: Negative for dysuria. Neurological: Negative for light-headedness, numbness and headaches. No past medical history on file. No past surgical history on file. No family history on file. Social History Tobacco Use Smoking Status Not on file Smokeless Tobacco Not on file Social History Substance and Sexual Activity Alcohol Use Not on file Social History Substance and Sexual Activity Drug Use Not on file Not on File Prior to Admission medications Not on File Objective: Vitals: 02/18/23 1818 02/18/23 2308 BP: (!) 190/86 (!) 174/77 Pulse: 90 97 Resp: 16 16 Temp: 36.3 ?C (97.3 ?F) 36.6 ?C (97.9 ?F) TempSrc: Temporal Tympanic SpO2: 98% 97% Physical Exam Constitutional: General: She is not in acute distress. Appearance: Normal appearance. HENT: Head: Normocephalic and atraumatic. Mouth/Throat: Mouth: Mucous membranes are moist. Pharynx: Oropharynx is clear. Eyes: General: No scleral icterus. Extraocular Movements: Extraocular movements intact. Conjunctiva/sclera: Conjunctivae normal. Cardiovascular: Rate and Rhythm: Normal rate and regular rhythm. Pulses: Normal pulses. Heart sounds: Murmur (Systolic murmur likely consistent w/ aortic stenosis/chronic hypertension) heard. No friction rub. No gallop. Pulmonary: Effort: Pulmonary effort is normal. Breath sounds: Normal breath sounds. Abdominal: General: Abdomen is flat. Bowel sounds are normal. Palpations: Abdomen is soft. Skin: General: Skin is warm and dry. Capillary Refill: Capillary refill takes less than 2 seconds. Neurological: Mental Status: She is alert. Select Labs within last 24 hours Auto WBC Date Value Ref Range Status 02/18/2023 8.1 3.6 - 10.7 10*3/uL Final Hemoglobin Date Value Ref Range Status 02/18/2023 12.7 11.7 - 16.0 g/dL Final Hematocrit Date Value Ref Range Status 02/18/2023 38.4 35.0 - 47.0 % Final Platelets Date Value Ref Range Status 02/18/2023 279 140 - 440 10*3/uL Final MCV Date Value Ref Range Status 02/18/2023 85.9 80.0 - 98.0 fL Final SODIUM Date Value Ref Range Status 02/18/2023 137 135 - 145 mmol/L Final POTASSIUM Date Value Ref Range Status 02/18/2023 4.0 3.5 - 5.1 mmol/L Final CHLORIDE Date Value Ref Range Status 02/18/2023 104 98 - 107 mmol/L Final CARBON DIOXIDE Date Value Ref Range Status 02/18/2023 26 22 - 30 mmol/L Final UREA NITROGEN Date Value Ref Range Status 02/18/2023 7 7 - 17 mg/dL Final CREATININE Date Value Ref Range Status 02/18/2023 0.49 (L) 0.52 - 1.04 mg/dL Final GLUCOSE Date Value Ref Range Status 02/18/2023 163 (H) 70 - 100 mg/dL Final CALCIUM Date Value Ref Range Status 02/18/2023 9.9 8.4 - 10.4 mg/dL Final AST (SGOT) Date Value Ref Range Status 02/18/2023 55 (H) 15 - 46 U/L Final ALT Date Value Ref Range Status 02/18/2023 60 (H) 0 - 34 U/L Final TOTAL PROTEIN Date Value Ref Range Status 02/18/2023 7.7 (more content not included)... Normal [facility] ED Nursing Noteon 02-19-2023 ED Nursing Note Patient was cooperat josias and transported to the floor with [facility] police. Justo Adler RN 02/19/23 0512 Normal [facility] ED Nursing Note Transportation and Daija HURTADO officer here to take patient to [address] with 1 bag of belongings. Bozena Kemp MA 02/19/23 0526 Normal [facility] ED Nursing Note Patient report was g iven to Jefferson RN and was put in for transport. Patient is resting quietly in room. Justo Adler RN 02/19/23 0518 Normal [facility] ED Nursing Note EYAL Kemp bedside for vitals. Bozena Kemp MA 02/19/23 2903 Normal [facility] ED Nursing Note Patient was taken to bathroom by wheelchair by RN. Patient was returned to room. Patient is very unsteady on feet. Justo Adler RN 02/19/23 9690 [facility] ED Nursing Note Justo BIRCH at bedside to help pt to restroom via wheelchair Chary Miller 02/19/23 0231 Normal [facility] ED Nursing Note Patient would like s omething to help her sleep. Patient was worried about her diabetes, so this nurse checked her sugar. Patient is worried. Patient wants to talk to her doctor. Carolee Combs LPN 02/19/23 0145 [facility] ED Nursing Note Carolee GATES at bedside checking blood sugar Chary Miller 02/19/23 0132 [facility] ED Nursing Note Carolee GATES at bedside Chary Miller 02/19/23 0129 [facility] ED Nursing Note Justo BIRCH at bedside Chary Miller 02/19/23 0043 [facility] ED Nursing Note Carolee GATES at bedside to medicate Chary Miller 02/18/23 2220 [facility] IDNon 02-19-2023 IDN Will admit to consum ing > 50% of supplements. 1 Ensure HP or + vanilla bid 2p/8p [facility] Progress Noteon 02-19-2023 Progress Note Nutrition Assessment Type and Reason for Visit: Initial, Positive Nutrition Screen Nutrition Recommendations/Plan: Will initiate: 1 Ensure HP or + vanilla bid 2p/8p Advance diet as per FIXED INCOME MANAGER guidelines while swallowing improves w/medicine. Will monitor po intake, swallowing. Malnutrition Assessment: Malnutrition Status: At risk for malnutrition (Comment) (if meet ASPEN criteria) Context: Chronic Illness Findings of the 6 clinical characteristics of malnutrition: Energy Intake: No significant decrease in energy intake Weight Loss: No significant weight loss Body Fat Loss: Mild body fat loss Orbital Muscle Mass Loss: Mild muscle mass loss Temples (temporalis) Fluid Accumulation: No significant fluid accumulation Manager Social Responsibility Strength: Not Performed Nutrition Assessment: Per chart: weight loss, [id number], order for FIXED INCOME MANAGER chilo, pt. w/tracheostomy, dysphagia minced moist diet; 02/19 epic excerpt: Pt was having difficulty eating her lunch and started coughing and gagging after taking a bite of mashed potato. O2 was 97% and she was provided with an emesis basin. FIXED INCOME MANAGER consult: Recommend Full liquid diet and meds whole in applesauce, as tolerated and the following precautions: - Upright positioning for all PO intake - Slow rate of intake - Small bites/sips, Per nurse: awaitin medicine from home before advancing diet. Per pt.: does not like spicy foods. Estimated Daily Nutrient Needs: Energy Requirements Based On: Kcal/kg Weight Used for Energy Requirements: Admission Weight for Energy Calculation (kg): 62 kg Total Energy Requirements (kcals/day): 1550 - 1860 mls Weight Used for Protein Requirements: Admission Weight in Kg Used for Protein Requirements: 62 kg Estimated Total Protein (g/day): 68 - 74 gms protein Estimated Daily Total Fluid (ml/day): 1550 mls Nutrition Related Findings: oropharyngeal dysphagia Wound Type: None Current Nutrition Therapies: Adult diet Full liquid Current Oral Intake Average Meal Intake: Unable to assess Average Supplements Intake: None Ordered Anthropometric Measures: Height: 162.6 cm (5' 4) (per pt.) Current Body Weight: 61.7 kg (136 lb) Admission Body Weight: 61.7 kg (136 lb) Usual Body Weight: 61.7 kg (136 lb) (per visitor, pt. looks the same) % Weight Change (Calculated): 0 [place] Body Weight (lbs) (Calculated): 120 lbs [place] Body Weight (Kg) (Calculated): 55 kg % [place] Body Weight (Calculated): 113.3 % BMI (kg/m2) (Calculated): 23.3 Weight Adjustment For: No Adjustment BMI Categories: Normal Weight (BMI 22.0 to 24.9) age over 65 Nutrition Diagnosis: In context of social or environmental circumstances, Altered nutrition-related lab values (02/19 Glu 212, 215, 185, 158, elevated) related to psychological cause or life stress, endocrine dysfuntion, swallowing difficulty (dysphagia, tardive dyskinesia, + tracheostomy) as evidenced by lab values, swallow study results, mild loss of subcutaneous fat, mild muscle loss (s/p bedside swallowing evaluation) Nutrition Interventions: Nutrition Education/Counseling: Education not indicated Coordination of Nutrition Care: Continue to monitor while inpatient, Coordination of Care Plan of Care discussed with: pt./visitor present Goals: Goals: PO intake 50% or greater, other (specify) Specify Other Goals: of supplement Nutrition Monitoring and Evaluation: Behavioral-Environmental Outcomes: Beliefs and Attitutes, Readiness for Change Food/Nutrient Intake Outcomes: Supplement Intake, Food and Nutrient Intake Physical Signs/Symptoms Outcomes: Biochemical Data, GI Status, Fluid Status or Edema, Hemodynamic Status, Meal Time Behavior, Chewing or Swallowing, Nutrition Focused Physical Findings, Skin, Weight Discharge Planning: Assist with food insecurity, Continue current diet, Continue Oral Nutrition Supplement (advance diet as swallowing ability improves w/medicine) Adelaida Duran RD Contact: via [employer] chat or office *[phone] Normal [facility] Progress Note Speech-Billet Heater Operator ology SPEECH LANGUAGE PATHOLOGY [facility] Bedside Swallow Evaluation Patient Name: Karri Piedra Evaluation Date: 02/19/2023 Date of : 1940 Admission Date: 02/18/2023 6:15 PM Age: 82 y.o. Room/Bed: S4-113/S4-113 A IMPRESSION: S/s oropharyngeal dysphagia. No overt clinical s/s pulmonary compromise with PO. Risk factors for aspiration include recent coughing/gagging with PO, reported hx of Tardive Dyskinesia . RECOMMENDATION: Recommend Full liquid diet and meds whole in applesauce, as tolerated and the following precautions: - Upright positioning for all PO intake - Slow rate of intake - Small bites/sips Pt would benefit from skilled acute FIXED INCOME MANAGER services to address diet tolerance and determine if instrumental study is indicated. Frequency: 3 days/wk for 2 weeks Barriers: Depression Prognosis: fair D/C Recommendations: to be determined Subjective Patient alert and cooperative. Seen upright in bed. Answers all basic questions with clear, soft vocal quality. Follows all basic commands. ST student with this FIXED INCOME MANAGER at bedside. Patient agreeable to PO trials, reports she regularly has difficulties swallowing when off her [place], moreso with solids than liquids. Spoke with EYAL Cunningham who cleared pt to be evaluated. Dysphagia History: No history of FIXED INCOME MANAGER services in EMR with retrospective chart review Baseline Diet: Regular Current Diet: Dietary Orders (From admission, onward) Start Ordered 02/19/23 1413 Adult diet Full liquid Diet effective now Question: Diet type Answer: Full liquid 02/19/23 1413 Tube Feeding: no Tracheostomy: no Recent Chest Xray/CT of Chest: No results found for this visit on 02/18/23. Oxygen: Oxygen Therapy: None (Room air) Past Medical History: Past Medical History: Diagnosis Date Aphasia 02/19/2023 Chronic insomnia 02/19/2023 Confusion 02/19/2023 Dysphagia 02/19/2023 Tardive dyskinesia 02/19/2023 Past Surgical History: No past surgical history on file. Admission Diagnosis: Patient Active Problem List Diagnosis Date Noted Depression with suicidal ideation 02/19/2023 Suicidal behavior without attempted self-injury 02/19/2023 Aphasia 02/19/2023 Dysphagia 02/19/2023 Confusion 02/19/2023 Chronic insomnia 02/19/2023 Tardive dyskinesia 02/19/2023 History of Present Illness: Karri Piedra is a 82 y.o. female who presents to the emergency department presents with family recommended to come to the ED by their psychiatrist for evaluation of intermittent confusion, cognitive decline, depression and suicidal ideations. Per family this has been going on for about a month, she has been on Zoloft, Remeron, various mental health medications without much improvement in her depression and more recently she has been refusing to take any of her medications thinking they are actually causing worsening of her depression and cognition. She has made passively suicidal comments but has no suicidal plans or attempts. Family states she was investigated for UTI at [facility] recently for these symptoms and it was unremarkable. She denies any areas of pain, any change in bowel or bladder habits, any fever, chills, sick contacts. There is no focal numbness weakness tingling, slurred speech, falls or trauma. Family is concerned she may need Jesi psych evaluation and placement evaluation as well. Patient Complaint: Difficulty swallowing Pain: RN managing pain. PPE Worn: surgical mask, gloves Objective Bedside swallow eval completed. Oral Motor Mechanism Adequate structure, strength, and ROM in lingual, labial, and buccal musculature. Timely volitional swallow. Adequate dentition. Oral Hygiene: moist, clean Swallowing Examination PO Trials - thin liquid, (straw) - puree, (teaspoon) Oral Phase Pt with adequate oral receipt of PO trials. No anterior spillage. Unable to assess mastication. Oral transit time appears WFL. No oral residue. Pharyngeal Phase Hyolaryngeal excursion clinically appears adequate and timely per palpation. 1-2 swallows palpated per bolus, likely indicative of adequate pharyngeal clearance. No overt clinical s/s airway penetration as evidenced by no cough, no throat clear, and no change in vocal quality. Education Education Given: swallowing strategies, diet recommendations Given To: patient and RN Response: verbalizes understanding Goals Patient Stated Goal: To have her bring medication, get swallowing better Encounter Problems Encounter Problems (Active) Swallowing Patient will tolerate the least restrictive diet consistency to allow for safe consumption of daily meals (Initiated) Start: 02/19/23 Expected End: 03/05/23 Patient will tolerate recommended food and liquid consistencies without clinical signs and symptoms of aspirations (Initiated) Start: 02/19/23 Expected End: 03/05/23 Patient will participate in instrumental assessment of swallow (more content not included)... [facility] Progress Note ACTIVITY THERAPY ASS ESSMENT Met with patient for activity therapy assessment. Reviewed diagnosis, presenting complaint, current living situation, cultural/spiritual preferences, education level, vocational status and mental status at time of this assessment. Diagnosis (per chart review): Depression Presenting Problem: altered mental status Does the patient identify any cultural/spiritual influences that may impact patient participation with programs offered by the Activities team? No If Yes, describe: n/a Review of Recreation Therapy Involvement/Interests Identify types of leisure activities patient reports doing in their free time? None given Is patient satisfied with current leisure lifestyle? No Leisure Barriers: Decreased motivation, lack of finances, and lack of access Review of Music Therapy Involvement/Interests Favorite Band/Artist: none given Musical Preferences: Protestant Music Experiences/Skills: used to play piano Use of Music: Enhance Mood and Catholic Level of recent/current engagement in musical activities identified above: Whenever available Music Triggers/Adverse reactions: none given Review of Other Diversionary Activities/Interests Identify any additional activities/hobbies/events in which patient participates on a regular basis: none given Is patient able to identify the wellness benefits of engaging in recreation, music, or other diversionary activities? No If Yes, describe: n/a If No, is patient willing to consider participating in programming offered by the Activities team to experience the potential wellness benefits? unknown Was Patient provided information on unit programming, including types of activities and program schedule for the unit? Yes Activities Therapy Treatment Plan Goal(s): Objective(s): Intervention: Signature [facility] Progress Note Pt was having diffic ulty eating her lunch and started coughing and gagging after taking a bite of mashed potato. O2 was 97% and she was provided with an emesis basin. Call placed to her Sami to see if he could bring in her Austedo today for her TD but he is unable to until tomorrow. Requested to bring in her hearing aids as well. 1800- Per Harpreet SUPERINTENDENT MARINE, hold Metformin, Insulins and POCT d/t patient not tolerating food and being on a liquid diet at this time. Normal [facility] Progress Note Pt has been isolativ e to her room since she came up to the unit. She uses a wheelchair and is very unsteady during transfers. She reports that she uses a walker at home. Pt came in last night to the ER with her , whom she lives with, for an evaluation d/t the patient having increased confusion and decline at home. Pt reports she just can't do it anymore. She becomes very vague when asked if she is suicidal and stares off and states I've had those thoughts before. Pt states she has not been eating at home or sleeping well. States she has not been taking her medications for a month now. She reports that she has not been walking or taking care of any ADLs. Pt has difficulty speaking and very delayed responses. She is AxOx3 but takes a some time to understand when asked to do something. Pt reports that she has dealt with depression on and off her whole life. States she had a suicide attempt in the 70s when she was planning to overdose on pills but her daughter appeared and that stopped her. Pt reports that her is very supportive. 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 Pt is continent of bowel and bladder. Able to make needs known. Normal [facility] Progress Note Pt. arrived on unit at 0600 via wheelchair accompanied by protective services and nursing supervisor research shop. Patient alert and oriented x4, denies SI/HI/AH/VH but voiced that she did have SI previously. Patient stated that she is here for evaluation. Patient with delayed responses, wears glasses, hearing aids. Patient stated that she does not uses wheelchair at home but will benefit from one while here for tx d/t being unable to stand/walk on her own. Patient oriented to unit/room. Patient did sign in. Safety maintained Normal [facility] CBC WITH AUTO DIFFERENTIALon 02-18-2023 Basophils (Bld) [#/Vol] 0.1 10*3/uL Normal 0.0-0.2 [facility] Comment on above: Performed By: #### L AB18, [id number] #### Official Greeter: ION MOURA ([id number]) [facility]) [address] [place] [address] Basophils/100 WBC (Bld) 1.1 % Normal 0.0-2.0 [facility] Comment on above: Performed By: #### L AB18, [id number] #### Official Greeter: ION MOURA ([id number]) [facility]) [address] [place] [address] Eosinophils (Bld) [#/Vol] 0.1 10*3/uL Normal 0.0-0.5 [facility] Comment on above: Performed By: #### L AB18, [id number] #### Official Greeter: ION MOURA ([id number]) [facility]) [address] [place] [address] Eosinophils/100 WBC (Bld) 1.5 % Normal 1.0-6.0 [facility] Comment on above: Performed By: #### L AB18, [id number] #### Official Greeter: ION MOURA ([id number]) [facility]) [address] [place] [address] Erythrocyte distribution width (RBC) [Ratio] 15.3 % High 11.5-14.5 [facility] Comment on above: Performed By: #### L AB18, [id number] #### Official Greeter: ION MOURA ([id number]) [address] ERYTHROCYTE MEAN CORPUSCULAR HEMOGLOBIN CONCENTRATION (G/DL) BY AUTOMATED 33.0 % Normal 32.0-36.0 [facility] Comment on above: Performed By: #### L AB18, [id number] #### Official Greeter: ION MOURA ([id number]) [facility]) [address] [place] [address] Hematocrit (Bld) [Volume fraction] 38.4 % Normal 35.0-47.0 [facility] Comment on above: Performed By: #### L AB18, [id number] #### Official Greeter: ION [id number]) [facility] ([facility]) [address] [place] [address] Hemoglobin (Bld) [Mass/Vol] 12.7 g/dL Normal 11.7-16.0 [facility] Comment on above: Performed By: #### L AB18, [id number] #### Official Greeter: ION MOURA ([id number]) [facility]) [address] [place] [address] Lymphocytes (Bld) [#/Vol] 2.5 10*3/uL Normal 1.0-4.3 [facility] Comment on above: Performed By: #### L AB18, [id number] #### Official Greeter: ION MOURA ([id number]) [address] Lymphocytes/100 WBC (Bld) 30.9 % Normal 20.0-40.0 [facility] Comment on above: Performed By: #### L AB18, [id number] #### Official Greeter: ION MOURA ([id number]) [facility]) [address] [place] [address] MCH (RBC) [Entitic mass] 28.4 pg Normal 26.0-34.0 [facility] Comment on above: Performed By: #### L AB18, [id number] #### Official Greeter: ION MOURA ([id number]) [address] MCV (RBC) [Entitic vol] 85.9 fL Normal 80.0-98.0 [facility] Comment on above: Performed By: #### L AB18, [id number] #### Official Greeter: ION MOURA ([id number]) [facility]) [address] [place] [address] Monocytes (Bld) [#/Vol] 0.5 10*3/uL Normal 0.0-0.8 [facility] Comment on above: Performed By: #### L AB18, [id number] #### Official Greeter: ION MOURA ([id number]) [facility]) [address] [place] [address] [place] Monocytes/100 WBC (Bld) 6.7 % Normal 2.0-10.0 [facility] Comment on above: Performed By: #### L AB18, [id number] #### Official Greeter: ION MOURA ([id number]) [facility] ([facility]) [address] [place] [address] Neutrophils (Bld) [#/Vol] 4.8 10*3/uL Normal 1.8-7.0 [facility] Comment on above: Performed By: #### L AB18, [id number] #### Official Greeter: ION MOURA ([id number]) [facility] ([facility]) [address] [place] [address] Neutrophils/100 WBC (Bld) 59.8 % Normal 40.0-80.0 [facility] Comment on above: Performed By: #### L AB18, [id number] #### Official Greeter: ION MOURA ([id number]) [facility] ([facility]) [address] [place] [address] [place] NRBC (PER 100 WBCS) BY AUTOMATED COUNT 0.0 /100 WBCs Normal 0.0-2.0 [facility] Comment on above: Performed By: #### L AB18, [id number] #### Official Greeter: ION MOURA ([id number]) [facility] ([facility]) [address] [place] [address] [place] Platelet mean volume (Bld) [Entitic vol] 9.4 fL Normal 7.4-12.4 [facility] Comment on above: Performed By: #### L AB18, [id number] #### Official Greeter: ION MOURA ([id number]) [facility] ([facility]) [address] [place] [address] [place] Platelets (Bld) [#/Vol] 279 10*3/uL Normal 140-440 [facility] Comment on above: Performed By: #### L AB18, [id number] #### Official Greeter: ION MOURA ([id number]) [facility] ([facility]) [address] [place] [address] RBC (Bld) [#/Vol] 4.47 10*6/uL Normal 3.8-5.20 [facility] Comment on above: Performed By: #### L AB18, [id number] #### Official Greeter: ION MOURA ([id number]) [facility] ([facility]) [address] [place] [address] WBC (Bld) [#/Vol] 8.1 10*3/uL Normal 3.6-10.7 [facility] Comment on above: Performed By: #### L AB18, [id number] #### Official Greeter: ION MOURA ([id number]) [facility]) [address] [place] [address] COMPLETE URINALYSISon 2022 BACTERIA (#/HPF) IN URINE Few Abnormal Negative [facility] Comment on above: Performed By: #### L AB18, [id number] #### Official Greeter: ION MOURA ([id number]) [facility] ([facility]) [address] [place] [address] BILIRUBIN, TOTAL PRESENCE IN URINE Negative Normal Negative [facility] Comment on above: Performed By: #### L AB18, [id number] #### Official Greeter: ION MOURA ([id number]) [facility]) [address] [place] [address] Clarity (U) Clear Normal Clear [facility] Comment on above: Performed By: #### L AB18, [id number] #### Official Greeter: ION MOURA ([id number]) [facility]) [address] [place] [address] Color (U) Colorless Normal Lt. Yellow [facility] Comment on above: Performed By: #### L AB18, [id number] #### Official Greeter: ION MOURA ([id number]) [facility]) [address] [place] [address] Glucose (U) [Mass/Vol] 50 mg/dL Normal Normal (<70) [facility] Comment on above: Performed By: #### L AB18, [id number] #### Official Greeter: ION MOURA ([id number]) [facility]) [address] [place] [address] [place] HEMOGLOBIN PRESENCE IN URINE Negative Normal Negative [facility] Comment on above: Performed By: #### L AB18, [id number] #### Official Greeter: ION MOURA ([id number]) [facility] [address] [place] [address] [place] HYALINE CASTS (#/LPF) IN URINE SEDIMENT BY MICROSCOPY Negative Normal Negative [facility] Comment on above: Performed By: #### L AB18, [id number] #### Official Greeter: ION MOURA ([id number]) [facility] ([facility]) [address] [place] [address] [place] Ketones Ql (U) Negative Normal Negative [facility] Comment on above: Performed By: #### L AB18, [id number] #### Official Greeter: ION MOURA ([id number]) [facility] ([facility]) [address] [place] [address] LEUKOCYTE ESTERASE PRESENCE IN URINE BY TEST STRIP 75 Rosey/uL Abnormal Negative [facility] Comment on above: Performed By: #### L AB18, [id number] #### Official Greeter: ION MOURA ([id number]) [facility] ([facility]) [address] [place] [address] [place] NITRITE PRESENCE IN URINE Negative Normal Negative [facility] Comment on above: Performed By: #### L AB18, [id number] #### Official Greeter: ION MOURA ([id number]) [facility]) [address] [place] [address] [place] pH (U) 6.0 [pH] Normal 5.0-8.0 [facility] Comment on above: Performed By: #### L AB18, [id number] #### Official Greeter: ION MOURA ([id number]) [facility] [address] [place] [address] [place] Protein (U) [Mass/Vol] Negative Normal Negative [facility] Comment on above: Performed By: #### L AB18, [id number] #### Official Greeter: ION MOURA ([id number]) [facility] ([facility]) [address] [place] [address] RBC (#/HPF) IN URINE SEDIMENT 0-2 Normal 0-2 [facility] Comment on above: Performed By: #### L AB18, [id number] #### Official Greeter: ION MOURA ([id number]) [facility] ([facility]) [address] [place] [address] Specific gravity (U) [Rel density] 1.006 Normal 1.005-1.030 [facility] Comment on above: Performed By: #### L AB18, [id number] #### Official Greeter: ION MOURA ([id number]) [facility] ([facility]) [address] [place] [address] SQUAMOUS EPITHELIAL CELLS (#/HPF) IN URINE SEDIMENT 0-2 Normal 3-5 [facility] Comment on above: Performed By: #### L AB18, [id number] #### Official Greeter: ION MOURA ([id number]) [facility] ([facility]) [address] [place] [address] UROBILINOGEN (MG/DL) IN URINE Normal Normal Normal (0-1) [facility] Comment on above: Performed By: #### L AB18, [id number] #### Official Greeter: ION MOURA ([id number]) [facility] ([facility]) [address] [place] [address] WBC (LEUKOCYTE) (#/HPF) IN URINE SEDIMENT 3-5 Normal 0-5 [facility] Comment on above: Performed By: #### L AB18, [id number] #### Official Greeter: ION MOURA ([id number]) [facility]) [address] [place] [address] COMPREHENSIVE METABOLIC PANE Lenin 02-18-2023 Albumin [Mass/Vol] 4.2 g/dL Normal 3.5-5.0 [facility] Comment on above: Performed By: #### L AB18, [id number] #### Official Greeter: ION MOURA ([id number]) [facility] ([facility]) [address] [place] [address] [place] ALP [Catalytic activity/Vol] 113 U/L Normal 38-126 [facility] Comment on above: Performed By: #### L AB18, [id number] #### Official Greeter: ION MOURA ([id number]) [facility] [address] [place] [address] [place] ALT [Catalytic activity/Vol] 60 U/L High 0-34 [facility] Comment on above: Performed By: #### L AB18, [id number] #### Official Greeter: ION MOURA ([id number]) [facility] ([facility]) [address] [place] [address] Anion gap [Moles/Vol] 7 mmol/L Normal 3-13 [facility] Comment on above: Performed By: #### L AB18, [id number] #### Official Greeter: ION MOURA ([id number]) [facility]) [address] [place] [address] [place] AST [Catalytic activity/Vol] 55 U/L High 15-46 [facility] Comment on above: Performed By: #### L AB18, [id number] #### Official Greeter: ION MOURA ([id number]) [facility]) [address] [place] [address] [place] Bilirubin [Mass/Vol] 0.5 mg/dL Normal 0.2-1.3 [facility] Comment on above: Performed By: #### L AB18, [id number] #### Official Greeter: ION MOURA ([id number]) [facility] ([facility]) [address] [place] [address] [place] Calcium [Mass/Vol] 9.9 mg/dL Normal 8.4-10.4 [facility] Comment on above: Performed By: #### L AB18, [id number] #### Official Greeter: ION MOURA ([id number]) [facility]) [address] [place] [address] [place] Chloride [Moles/Vol] 104 mmol/L Normal 98-107 [facility] Comment on above: Performed By: #### L AB18, [id number] #### Official Greeter: ION MOURA ([id number]) [facility]) [address] [place] [address] CO2 [Moles/Vol] 26 mmol/L Normal 22-30 [facility] Comment on above: Performed By: #### L AB18, [id number] #### Official Greeter: ION MOURA ([id number]) [facility] ([facility]) [address] [place] [address] Creatinine [Mass/Vol] 0.49 mg/dL Low 0.52-1.04 [facility] Comment on above: Performed By: #### L AB18, [id number] #### Official Greeter: ION MOURA ([id number]) [facility] ([facility]) [address] [place] [address] GLOMERULAR FILTRATION RATE ML/MIN/1.73 SQ M.PREDICTED >90.0 Normal >60.0 [facility] Comment on above: Result Comment: Calc ulation based on the Chronic Kidney Disease Epidemiology Collaboration (CKD-EPI) equation refit without adjustment for race Performed By: #### L AB18, [id number] #### Official Greeter: ION MOURA ([id number]) [facility] ([facility]) [address] [place] [address] Glucose [Mass/Vol] 163 mg/dL High 70-100 [facility] Comment on above: Performed By: #### L AB18, [id number] #### Official Greeter: ION MOURA ([id number]) [facility] ([facility]) [address] [place] [address] [place] Potassium [Moles/Vol] 4.0 mmol/L Normal 3.5-5.1 [facility] Comment on above: Performed By: #### L AB18, [id number] #### Official Greeter: ION MOURA ([id number]) [facility] ([facility]) [address] [place] [address] Protein [Mass/Vol] 7.7 g/dL Normal 6.3-8.2 [facility] Comment on above: Performed By: #### L AB18, [id number] #### Official Greeter: ION MOURA ([id number]) [facility]) [address] [place] [address] Sodium [Moles/Vol] 137 mmol/L Normal 135-145 [facility] Comment on above: Performed By: #### L AB18, [id number] #### Official Greeter: ION MOURA ([id number]) [facility]) [address] [place] [address] Urea nitrogen [Mass/Vol] 7 mg/dL Normal 7-17 [facility] Comment on above: Performed By: #### L AB18, [id number] #### Official Greeter: ION MOUAR ([id number]) [facility]) [address] [place] [address] CT HEAD WO IV CONTRASTon CT HEAD WO IV CONTRAST Patient Name: KARRI PIEDRA : 1940 Exam Date/Time: 02/18/2023 20:55 Procedure: CT HEAD WO IV CONTRAST Ordering Provider: URIARTE CONNOR Reason For Exam: confusion CT HEAD: Clinical Indication: 82-year-old; confusion Imaging Technique: Multiple axial 3mm CT images of the head were obtained from the skull base to the vertex. Coronal and sagittal reconstructs were rendered. Dose reduction was employed with automated exposure control. Comparison: No comparison CT head FINDINGS: There is no intracranial hemorrhage. There is no extra-axial fluid collection. There is global volume loss with small vessel ischemia. The globes are intact. The calvarium is intact. The paranasal sinuses are pneumatized. The mastoid air cells are pneumatized. Scalp bulky calcification is noted posteriorly. IMPRESSION: No acute intracranial process. Report Dictated on Electronically Signed By: Michelle Quinn MD Electronically Signed Date/Time: 02/18/2023 9:02 PM EST Normal [facility] DRUGS OF ABUSEon 02-18-2023 AMPHETAMINE SCREEN Negative Normal [facility] Comment on above: Performed By: #### L AB18, [id number] #### Official Greeter: ION MOURA ([id number]) [facility] ([facility]) [address] [place] [address] BAR[address] S[address] Negative Normal [facility] Comment on above: Performed By: #### L [id number], [id number] #### Official Greeter: ION MOURA ([phone]) [facility] ([facility]) [address] [place] [address] BENZODIAZEPINE SCREEN Negative Normal [facility] Comment on above: Performed By: #### L [id number], [id number] #### Official Greeter: ION MOURA ([phone]) [facility] ([facility]) [address] [place] [address] COCAINE METAB. SCREEN Negative Normal [facility] Comment on above: Performed By: #### L [id number], [id number] #### Official Greeter: ION MOURA ([phone]) [facility] ([facility]) [address] [place] [address] METHADONE SCREEN Negative Normal [facility] Comment on above: Performed By: #### L [id number], [id number] #### Official Greeter: ION MOURA ([phone]) [facility] ([facility]) [address] [place] [address] OPIATES SCREEN Negative Normal [facility] Comment on above: Performed By: #### L [id number], [id number] #### Official Greeter: ION MOURA ([phone]) [facility] ([facility]) [address] [place] [address] OXYCODONE SCREEN Negative Normal [facility] Comment on above: Performed By: #### L [id number], [id number] #### Official Greeter: ION MOURA ([phone]) [facility] ([facility]) [address] [place] [address] PHENCYCLIDINE SCREEN Negative Normal [facility] Comment on above: Result Comment: JODI R COMMENTS: The expected value for all of the drugs listed above is Negative. The following drugs or drug groups have been screened for by Immunoassay at the following thresholds: Amphetamine class (1000 ng/mL) Barbiturates (200 ng/mL) Benzodiazepines (200 ng/mL) Cocaine (300 ng/mL) Methadone (300 ng/mL) Opiates (300 ng/mL) Oxycodone (100 ng/mL) PCP (25 ng/mL) NOTE: These results are for medical treatment only. Analysis performed using non-forensic procedures. POSITIVE results are NOT confirmed by a more specific alternative method unless requested. If confirmation is needed, request confirmation under separate order. Performed By: #### L AB18, [id number] #### Official Greeter: ION MOURA ([phone]) [facility] ([facility]) [address] [place] [address] ECG 12-LEADon 02-18-2023 ECG 12-LEAD IMPRESSION: Sinus rhythm Inferior infarct, old Electronically Signed On 02-18-2023 19:45:03 EST by Rosas Vogel [facility] ED Nursing Noteon 02-18-2023 ED Nursing Note Back from [facility] 02/18/232053 [facility] ED Nursing Note Going to [facility] 02/18/232045 [facility] ED Nursing Note Dr Gallardo in 47 w/ pt [facility] 02/18/232043 [facility] ED Nursing Note Pt now in , assist ed into bed by Justo BIRCH [facility] 02/18/232013 [facility] ED Nursing Note Pt taken to [facility] 02/18/232005 [facility] ED Nursing Note Registration talking to pt in room 47 Chary Miller 02/18/231958 [facility] ED Nursing Note Changed into hospita l gowns and socks. Wanded by protective services. 1 bag of belongings Chary Miller 02/18/231950 [facility] ED Nursing Note Dr. Olmstead talking w ith pt in room 47 Chary Miller 02/18/23 1950 [facility] ED Nursing Note Pt to 47 to complete triage process Chary Miller 02/18/231941 [facility] ED Provider Noteon 3 ED Provider Note EMERGENCY DEPARTMENT ENCOUNTER Pt Name: Karri Piedra Birthdate 1940 Date of evaluation: 02/18/2023 ED Provider: Reynaldo Uriarte PA-C CHIEF COMPLAINT Chief Complaint Patient presents with Altered Mental Status Per patient and family patient has been increasingly confused over the last 4 weeks. Wandering around at night, refusing to take most of her medications. Sent here on the advice of her psychiatrist. Patient currently AxOx4. Also per family patient has made vague statements indicating suicidal thoughts. Patient son states he asked her what she wanted for Joe and patient stated, I wont be here for [place]. Patient denying SI/HI to me at this time. HISTORY OF PRESENT ILLNESS (Location/Symptom, Timing/Onset, Context/Setting, Quality, Duration, Modifying Factors, Severity) Note limiting factors. I wore appropriate PPE for the entirety of this encounter. HPI Karri Piedra is a 82 y.o. female who presents to the emergency department presents with family recommended to come to the ED by their psychiatrist for evaluation of intermittent confusion, cognitive decline, depression and suicidal ideations. Per family this has been going on for about a month, she has been on Zoloft, Remeron, various mental health medications without much improvement in her depression and more recently she has been refusing to take any of her medications thinking they are actually causing worsening of her depression and cognition. She has made passively suicidal comments but has no suicidal plans or attempts. Family states she was investigated for UTI at [facility] recently for these symptoms and it was unremarkable. She denies any areas of pain, any change in bowel or bladder habits, any fever, chills, sick contacts. There is no focal numbness weakness tingling, slurred speech, falls or trauma. Family is concerned she may need Jesi psych evaluation and placement evaluation as well. Nursing Notes were reviewed. Limitations to history: None Outside historians: Family and son REVIEW OF SYSTEMS Review of Systems 10 systems reviewed, positives and pertinent negatives as per HPI. All other systems were reviewed and are negative. PAST MEDICAL HISTORY No past medical history on file. SURGICAL HISTORY No past surgical history on file. CURRENT MEDICATIONS Previous Medications No medications on file ALLERGIES Patient has no allergy information on record. FAMILY HISTORY No family history on file. SOCIAL HISTORY Social History Socioeconomic History Marital status: SCREENINGS PHYSICAL EXAM ED Triage Vitals [02/18/23 1818] Temp Heart Rate Resp BP 36.3 ?C (97.3 ?F) 90 16 (!) 190/86 SpO2 Temp Source Heart Rate Source Patient Position 98 % Temporal -- -- BP Location FiO2 (%) -- -- Physical Exam Constitutional: Comments: Pleasant elderly female, not acutely distressed, cooperative. HENT: Head: Normocephalic and atraumatic. Cardiovascular: Rate and Rhythm: Normal rate and regular rhythm. Heart sounds: Normal heart sounds. Pulmonary: Effort: Pulmonary effort is normal. Breath sounds: Normal breath sounds and air entry. No decreased breath sounds, wheezing, rhonchi or rales. Musculoskeletal: Cervical back: Full passive range of motion without pain, normal range of motion and neck supple. Neurological: Mental Status: She is alert and oriented to person, place, and time. GCS: GCS eye subscore is 4. GCS verbal subscore is 5. GCS motor subscore is 6. Psychiatric: Mood and Affect: Mood is depressed. Speech: Speech normal. Behavior: Behavior normal. Thought Content: Thought content includes suicidal ideation. Thought content does not include homicidal ideation. Thought content does not include homicidal or suicidal plan. \ DIAGNOSTIC RESULTS RADIOLOGY (Per Emergency Physician): Interpretation per the Radiologist below, if available at the time of this note: CT head wo IV contrast Final Result No acute intracranial process. Report Dictated on Electronically Signed By: Michelle Quinn MD Electronically Signed Date/Time: 02/18/2023 9:02 PM EST LABS: Labs Reviewed CBC WITH AUTO DIFFERENTIAL - Abnormal Result Value Auto WBC 8.1 RBC 4.47 Hemoglobin 12.7 Hematocrit 38.4 MCV 85.9 MCH 28.4 MCHC 33.0 RDW 15.3 (*) Platelets 279 MPV 9.4 nRBC 0.0 Neutrophils Relative 59.8 Lymphocytes Relative 30.9 Monocytes Relative 6.7 Eosinophils Relative 1.5 Basophils Relative 1.1 Neutrophils Absolute 4.8 Lymphocytes Absolute 2.5 Monocytes Absolute 0.5 Eosinophils Absolute 0.1 Basophils Absolute 0.1 COMPREHENSIVE METABOLIC PANEL - Abnormal SODIUM 137 POTASSIUM 4.0 CHLORIDE 104 CARBON DIOXIDE 26 ANION GAP 7 UREA NITROGEN 7 CREATININE 0.49 (*) GLUCOSE 163 (*) CALCIUM 9.9 AST (SGOT) 55 (*) ALT 60 (*) ALKALINE PHOSPHATASE 113 ALBUMIN 4.2 BILI (more content not included)... Normal [facility] ED Provider Note Emergency Department Encounter [facility] EMERGENCY DEPT Patient: Karir Piedra : 1940 Date of Evaluation: 02/18/2023 ED Supervising Physician: Karthik Olmstead DO I independently examined and evaluated Karri Piedra. This will serve as my Supervisory note as the people greeter of record and shared attestation. I did perform a substantive portion of the visit including all aspects of the Medical Decision Making. I wore appropriate PPE for the entirety of this encounter. In brief, Karri Piedra is a 82 y.o. female that presents to the emergency department with suicidal ideation. According to the patient's family the patient has been expressing passive suicidal ideation, and not been taking her home medications. The patient's psychiatrist instructed her to be brought to the emergency department for evaluation. The patient is currently alert and oriented x 4. When asked about suicidal thoughts the patient does not respond. Focused exam: Appears well, resting comfortably, no acute distress. No facial asymmetry, speech is clear, alert and oriented x 4. Gait is intact, moving extremities equally x 4. Brief ED course/MDM: MDM The patient presented with chief complaint of passive suicidal thoughts and not taking her medication. The patient appears well at this time in no acute distress, vitals are stable. She is significantly hypertensive. The patient has history of hypertension however has not been taking her antihypertensives. Differential diagnosis includes but is not limited to primary behavioral/psychiatric disturbance, electrolyte abnormality, brain mass, anemia, arrhythmia. To aid in management, I performed an independent interpretation of all laboratory tests, EKG, imaging, and other diagnostics ordered. Blood counts, electrolytes, kidney function, hepatic function, urinalysis, and UDS are unremarkable. CT head is negative for acute processes. The patient was given home hydrochlorothiazide 12.5 mg p.o. She did not have significant improvement of her blood pressure. Discussed the case with residential monitor who recommended medicine evaluation for admission. Medicine agreed to admit the patient with psychiatry on consult. Patient's care was impacted by Hypertension. All diagnostic, treatment, and disposition decisions were made by myself in conjunction with the BARB. For all further details of the patient's emergency department visit, please see their documentation. (Comment: Please note this report has been produced using speech recognition software and may contain errors related to that system including errors in grammar, punctuation, and spelling, as well as words and phrases that may be inappropriate. If there are any questions or concerns please feel free to contact the dictating provider for clarification.) Karthik Olmstead, DO [employer] Karthik Olmstead, DO 02/18/23 2320 Normal [facility] ETHANOLon 02-18-2023 ETHANOL IN SER/PLAS <0.010 Normal 0.000-0.010 [facility] Comment on above: Result Comment: JODI Slater COMMENTS: NOTE: This result is for medical treatment only. Analysis performed using non-forensic procedures. Performed By: #### L AB18, [id number] #### Official Greeter: ION MOURA ([phone]) [facility] ([facility]) [address] [place] [address] SARS-COV-2 ANTIGENon 023 SARS-COV-2 ANTIGEN SARS-COV-2 ANTIGEN - BINAX Reference Negative Negative A negative result does not rule out the possibility of SARS-CoV-2 infection. NAAT-based methods should be considered for symptomatic patients presenting greater than seven days after onset of symptoms. Method: Lateral flow immunoassay. Fact sheets for healthcare providers and patients can be found at the following sites: https://www.fda.gov/media/357 381/download https://www.fda.gov/media/936 794/download Normal [facility] Comment on above: Performed By: #### L [id number] #### Official Greeter: ION MOURA ([id number]) [facility] ([facility]) [address] [place] [address] Absolute lymphocyte counton 11-06-2021 Lymphocytes Auto (Unsp spec) [#/Vol] 2.25 10*3/uL 0.83-4.51 [facility] Work Phone: Basophil percentageon 2021 Basophils/100 WBC (Bld) 0.7 % 0-1 [facility] Work Phone: Bilirubin [Mass/Vol] 0.50 mg/dL 0.20-1.00 [facility] Work Phone: Comment on above: For patients on eltr ombopag therapy, use of Dimension [place]er TBIL is not recommended. Chloride [Moles/Vol] 103 mmol/L 98-107 [facility] Work Phone: Cholesterol [Mass/Vol] 112 mg/dL <200 [facility] Work Phone: Comment on above: <200 mg/dL Desirable 200-240 mg/dL Borderline >240 mg/dL High Risk Eosinophils/100 WBC (Bld) 4.0 % 0-5 [facility] Work Phone: Glucose [Mass/Vol] 126 mg/dL 74-106 [facility] Work Phone: Comment on above: Fasting Glucose resu lt greater than or equal to 126 mg/dL suggests DIABETES MELLITUS per A.D.A. criteria. Neutrophils (Bld) [#/Vol] 5.1 10*3/uL 2.0-7.7 [facility] Work Phone: Neutrophils/100 WBC (Bld) 60.6 % 47-70 [facility] Work Phone: Potassium [Moles/Vol] 3.9 mmol/L 3.5-5.1 [facility] Work Phone: Protein [Mass/Vol] 7.0 g/dL 6.4-8.2 [facility] Work Phone: Sodium [Moles/Vol] 138 mmol/L 136-145 [facility] Work Phone: Triglyceride [Mass/Vol] 164 mg/dL <199 [facility] Work Phone: Comment on above: The drugs N-Acetylcy steine and Metamizole may falsely depress this assay.Serum Triglycerides Reference Interval Normal <150 mg/dL Borderline high 150 - 199 mg/dL High 200 - 499 mg/dL Very High > or = 500 mg/dL WBC (Bld) [#/Vol] 8.4 10*3/uL 4.4-11.0 [facility] Work [facility]: [phone] Blood erythrocytes count (nu mber/volume)on 11-06-2021 RBC (Bld) [#/Vol] 4.27 10*6/uL 4.2-5.4 [facility] Work Phone: Blood hemoglobin measurement (mass/volume)on 11-06-2021 Hemoglobin (Bld) [Mass/Vol] 12.2 g/dL 12.0-15.0 [facility] Work Phone: [phone] Blood lymphocytes/100 leukoc yteson 11-06-2021 Lymphocytes/100 WBC (Bld) 26.7 % 19-41 [facility] Work Phone: [phone] Blood monocytes/100 leukocyt eson 11-06-2021 Monocytes/100 WBC (Bld) 7.8 % 0-10 [facility] Work Phone: [phone] Blood platelet mean volumeon 11-06-2021 Platelet mean volume (Bld) [Entitic vol] 13.0 fL 6.2-12.0 [facility] Work Phone: [phone] Determination of erythrocyte mean corpuscular volume (MCV)on 11-06-2021 MCV (RBC) [Entitic vol] 85.7 fL 81-99 [facility] Work Phone: [phone] Hematocrit Auto (Bld) [Volum e fraction]on 11-06-2021 Hematocrit (Bld) [Volume fraction] 36.6 % 37-47 [facility] Work Phone: [phone] Laboratory - Chemistry and C hemistry - challengeon 11-06-2021 ALP [Catalytic activity/Vol] 64 U/L 45-117 [facility] Work Phone: [phone] ALT [Catalytic activity/Vol] 29 U/L 13-56 [facility] Work Phone: [phone] CO2 [Moles/Vol] 28.0 mmol/L 21.0-32.0 [facility] Work Phone: Globulin (S) [Mass/Vol] 2.9 g/dL 2.2-4.2 [facility] Work Phone: [phone] Urea nitrogen/Creatinin e [Mass ratio] 13.2 mg/mg 10-20 [facility] Work Phone: [phone] Laboratory - Hematology and Cell countson 11-06-2021 Erythrocyte distribution width (RBC) [Entitic vol] 43.3 fL 35.1-43.9 [facility] Work Phone: [phone] Erythrocyte distribution width (RBC) [Ratio] 14.0 % 11.6-14.6 [facility] Work Phone: [phone] Immature granulocytes/100 WBC (Bld) 0.200 % 0.0-0.9 [facility] Work Phone: [phone] Comment on above: IG% - Immature Granu locytes (promyelocytes, myelocytes and metamyelocytes) > 1% indicates that a LEFT SHIFT is Present. MCH (RBC) [Entitic mass] 28.6 pg 27.0-32.0 [facility] Work Phone: [phone] Nucleated RBC/100 WBC (Bld) [Ratio] 0 % 0-5 [facility] Work Phone: [phone] MCHC Auto (RBC) [Mass/Vol]on 11-06-2021 MCHC (RBC) [Mass/Vol] 33.3 g/dL 32-36 [facility] Work Phone: [phone] Panel Informationon 11-06 Estimated GFR (MDRD) Amer 94 mL/min >60 [facility] Work Phone: [phone] Comment on above: GFR Calc Estimated GFR (MDRD) Non-Af Amer 77 mL/min >60 [facility] Work Phone: [phone] Comment on above: Non- GFR Calc Vitamin D 25-Hydroxy 47.4 ng/mL [facility] Work Phone: [phone] Comment on above: Vitamin D 25(OH) Sta tus Range Deficiency <20 ng/mL (50nmol/L) Insufficiency 20 - 30 ng/mL (50 - 75 nmol/L) Sufficiency 30 - 100 ng/mL (75 - 250 nmol/L) Toxicity >100 ng/mL (>250 nmol/L) Platelets bldon 11-06-2021 Platelets (Bld) [#/Vol] 221 10*3/uL 150-450 [facility] Work Phone: Serum or plasma albumin tricia urement (mass/volume)on 11-06-2021 Albumin [Mass/Vol] 4.1 g/dL 3.2-5.0 [facility] Work Phone: Serum or plasma albumin/glob ulin mass ratioon 11-06-2021 Albumin/Globulin [Mass ratio] 1.4 {ratio} 0.9-2.4 [facility] Work Phone: Serum or plasma calcium tricia urement (mass/volume)on 11-06-2021 Calcium [Mass/Vol] 9.1 mg/dL 8.5-10.1 [facility] Work Phone: Serum or plasma cholesterol in HDL measurement (mass/volume)on 11-06-2021 Cholesterol in HDL [Mass/Vol] 67 mg/dL >40 [facility] Work Phone: Comment on above: The drugs N-Acetylcy steine and Metamizole may falsely depress this assay. Reference Range HDL <40 mg/dL Low HDL Cholesterol HDL >or= 60 mg/dL High HDL Cholesterol Serum or plasma cholesterol in VLDL measurement (mass/volume)on 11-06-2021 Cholesterol in VLDL [Mass/Vol] 33 mg/dL 5-40 [facility] Work Phone: Serum or plasma creatinine m easurement (mass/volume)on 11-06-2021 Creatinine [Mass/Vol] 0.76 mg/dL 0.55-1.02 [facility] Work Phone: Comment on above: The validity of the calculated GFR & GFRAA in patients over 70 years has not been determined. Clinical correlation is essential. Serum or plasma low density lipoprotein (LDL) cholesterol measurement (mass/volume)on 11-06-2021 Cholesterol in LDL [Mass/Vol] 12 mg/dL 0-130 [facility] Work Phone: Serum or plasma urea nitroge n measurement (mass/volume)on 11-06-2021 Urea nitrogen [Mass/Vol] 10 mg/dL 7-18 [facility] Work Phone: Thin prep Papanicolaou smear with manual screeningon 11-06-2021 Thin prep Papanicolaou smear with manual screening 17 U/L 15-37 [facility] Work Phone: [phone] Thin prep Papanicolaou smear with manual screening 7 5-15 [facility] Work Phone: [phone] Whole blood hemoglobin A1c/t otal hemoglobin ratio (mass fraction)on 11-06-2021 HbA1c (Bld) [Mass fraction] 6.4 % 3.8-5.6 [facility] Work Phone: Comment on above: Normal < 5.7 % Predi abetic 5.7 - 6.4 % Diabetic >or= 6.5 % Please note range changes. Absolute lymphocyte counton 07-05-2021 Lymphocytes Auto (Unsp spec) [#/Vol] 2.23 10*3/uL 0.83-4.51 [facility] Work Phone: Basophil percentageon 2021 Basophils/100 WBC (Bld) 1.2 % 0-1 [facility] Work Phone: [phone] Bilirubin [Mass/Vol] 0.40 mg/dL 0.20-1.00 [facility] Work Phone: [phone] Comment on above: For patients on eltr ombopag therapy, use of Dimension [place] TBIL is not recommended. Chloride [Moles/Vol] 103 mmol/L 98-107 [facility] Work Phone: [phone] Cholesterol [Mass/Vol] 137 mg/dL <200 [facility] Work Phone: [phone] Comment on above: <200 mg/dL Desirable 200-240 mg/dL Borderline >240 mg/dL High Risk Eosinophils/100 WBC (Bld) 2.7 % 0-5 [facility] Work Phone: [phone] Glucose [Mass/Vol] 184 mg/dL 74-106 [facility] Work Phone: Comment on above: Fasting Glucose resu lt greater than or equal to 126 mg/dL suggests DIABETES MELLITUS per A.D.A. criteria. Neutrophils (Bld) [#/Vol] 4.4 10*3/uL 2.0-7.7 [facility] Work Phone: [phone] Neutrophils/100 WBC (Bld) 59.0 % 47-70 [facility] Work Phone: [phone] Potassium [Moles/Vol] 4.0 mmol/L 3.5-5.1 [facility] Work Phone: [phone] Protein [Mass/Vol] 6.8 g/dL 6.4-8.2 [facility] Work Phone: [phone] Sodium [Moles/Vol] 137 mmol/L 136-145 [facility] Work Phone: [phone] Triglyceride [Mass/Vol] 169 mg/dL [facility] Work Phone: [phone] Comment on above: The drugs N-Acetylcy steine and Metamizole may falsely depress this assay.Serum Triglycerides Reference Interval Normal <150 mg/dL Borderline high 150 - 199 mg/dL High 200 - 499 mg/dL Very High > or = 500 mg/dL WBC (Bld) [#/Vol] 7.5 10*3/uL 4.4-11.0 [facility] Work Phone: [phone] Blood erythrocytes count (nu mber/volume)on 07-05-2021 RBC (Bld) [#/Vol] 4.41 10*6/uL 4.2-5.4 [facility] Work Phone: [phone] Blood hemoglobin measurement (mass/volume)on 07-05-2021 Hemoglobin (Bld) [Mass/Vol] 12.4 g/dL 12.0-15.0 [facility] Work Phone: [phone] Blood lymphocytes/100 leukoc yteson 07-05-2021 Lymphocytes/100 WBC (Bld) 29.7 % 19-41 [facility] Work Phone: [phone] Blood monocytes/100 leukocyt eson 07-05-2021 Monocytes/100 WBC (Bld) 7.1 % 0-10 [facility] Work Phone: [phone] Blood platelet mean volumeon 07-05-2021 Platelet mean volume (Bld) [Entitic vol] 12.4 fL 6.2-12.0 [facility] Work Phone: [phone] Determination of erythrocyte mean corpuscular volume (MCV)on 07-05-2021 MCV (RBC) [Entitic vol] 85.5 fL 81-99 [facility] Work Phone: [phone] Hematocrit Auto (Bld) [Volum e fraction]on 07-05-2021 Hematocrit (Bld) [Volume fraction] 37.7 % 37-47 [facility] Work Phone: [phone] Laboratory - Chemistry and C hemistry - challengeon 07-05-2021 ALP [Catalytic activity/Vol] 68 U/L 45-117 [facility] Work Phone: [phone] ALT [Catalytic activity/Vol] 32 U/L 13-56 [facility] Work Phone: [phone] CO2 [Moles/Vol] 29.0 mmol/L 21.0-32.0 [facility] Work Phone: [phone] Globulin (S) [Mass/Vol] 3.1 g/dL 2.2-4.2 [facility] Work Phone: [phone] Urea nitrogen/Creatinin e [Mass ratio] 16.9 mg/mg 10-20 [facility] Work Phone: [phone] Laboratory - Hematology and Cell countson 07-05-2021 Erythrocyte distribution width (RBC) [Entitic vol] 43.1 fL 35.1-43.9 [facility] Work Phone: [phone] Erythrocyte distribution width (RBC) [Ratio] 13.7 % 11.6-14.6 [facility] Work Phone: [phone] Immature granulocytes/100 WBC (Bld) 0.300 % 0.0-0.9 [facility] Work Phone: [phone] Comment on above: IG% - Immature Granu locytes (promyelocytes, myelocytes and metamyelocytes) > 1% indicates that a LEFT SHIFT is Present. MCH (RBC) [Entitic mass] 28.1 pg 27.0-32.0 [facility] Work Phone: Nucleated RBC/100 WBC (Bld) [Ratio] 0 % 0-5 [facility] Work Phone: [phone] MCHC Auto (RBC) [Mass/Vol]on 07-05-2021 MCHC (RBC) [Mass/Vol] 32.9 g/dL 32-36 [facility] Work Phone: No Panel Informationon 07-05 Estimated GFR (MDRD) Amer 102 mL/min >60 [facility] Work Phone: [phone] Comment on above: GFR Calc Estimated GFR (MDRD) Non-Af Amer 84 mL/min >60 [facility] Work Phone: Comment on above: Non- GFR Calc Thyroid Stimulating Hormone (TSH) 2.79 uIU/mL 0.358-3.74 [facility] Work Phone: [phone] Urine Microalbumin/Creat inine Ratio 17.9 mg/g CRE <30 [facility] Work Phone: [phone] Vitamin D 25-Hydroxy 33.0 ng/mL [facility] Work Phone: [phone] Comment on above: Vitamin D 25(OH) Sta tus Range Deficiency <20 ng/mL (50nmol/L) Insufficiency 20 - 30 ng/mL (50 - 75 nmol/L) Sufficiency 30 - 100 ng/mL (75 - 250 nmol/L) Toxicity >100 ng/mL (>250 nmol/L) Platelets bldon 07-05-2021 Platelets (Bld) [#/Vol] 251 10*3/uL 150-450 [facility] Work Phone: [phone] Serum or plasma albumin tricia urement (mass/volume)on 07-05-2021 Albumin [Mass/Vol] 3.7 g/dL 3.2-5.0 [facility] Work Phone: [phone] Serum or plasma albumin/glob ulin mass ratioon 07-05-2021 Albumin/Globulin [Mass ratio] 1.2 {ratio} 0.9-2.4 [facility] Work Phone: Serum or plasma calcium tricia urement (mass/volume)on 07-05-2021 Calcium [Mass/Vol] 9.2 mg/dL 8.5-10.1 [facility] Work Phone: [phone] Serum or plasma cholesterol in HDL measurement (mass/volume)on 07-05-2021 Cholesterol in HDL [Mass/Vol] 61 mg/dL [facility] Work Phone: [phone] Comment on above: The drugs N-Acetylcy steine and Metamizole may falsely depress this assay. Reference Range HDL <40 mg/dL Low HDL Cholesterol HDL >or= 60 mg/dL High HDL Cholesterol Serum or plasma cholesterol in VLDL measurement (mass/volume)on 07-05-2021 Cholesterol in VLDL [Mass/Vol] 34 mg/dL 5-40 [facility] Work Phone: [phone] Serum or plasma creatinine m easurement (mass/volume)on 07-05-2021 Creatinine [Mass/Vol] 0.71 mg/dL 0.55-1.02 [facility] Work Phone: Comment on above: The validity of the calculated GFR & GFRAA in patients over 70 years has not been determined. Clinical correlation is essential. Serum or plasma low density lipoprotein (LDL) cholesterol measurement (mass/volume)on 07-05-2021 Cholesterol in LDL [Mass/Vol] 42 mg/dL 0-130 [facility] Work Phone: [phone] Serum or plasma urea nitroge n measurement (mass/volume)on 07-05-2021 Urea nitrogen [Mass/Vol] 12 mg/dL 7-18 [facility] Work Phone: [phone] Thin prep Papanicolaou smear with manual screeningon 07-05-2021 Thin prep Papanicolaou smear with manual screening 21 U/L 15-37 [facility] Work Phone: [phone] Thin prep Papanicolaou smear with manual screening 5 5-15 [facility] Work Phone: [phone] Thin prep Papanicolaou smear with manual screening 18.8 mg/L NO RANGE EST. [facility] Work Phone: Urine creatinine measurement (mass/volume)on 07-05-2021 Creatinine (U) [Mass/Vol] 105.00 mg/dL NO RANGE EST. [facility] Work Phone: [phone] Whole blood hemoglobin A1c/t otal hemoglobin ratio (mass fraction)on 07-05-2021 HbA1c (Bld) [Mass fraction] 6.5 % 3.8-5.6 [facility] Work Phone: [phone] Comment on above: Normal < 5.7 % Predi abetic 5.7 - 6.4 % Diabetic >or= 6.5 % Please note range changes. Absolute lymphocyte counton 03-21-2021 Lymphocytes Auto (Unsp spec) [#/Vol] 1.84 10*3/uL 0.83-4.51 [facility] Work Phone: [phone] Basophil percentageon 2021 Basophil percentage 0-5 SEEN /hpf [facility] Work Phone: [phone] Basophils/100 WBC (Bld) 0.9 % 0-1 [facility] Work Phone: [phone] Bilirubin [Mass/Vol] 0.60 mg/dL 0.20-1.00 [facility] Work Phone: [phone] Comment on above: For patients on eltr ombopag therapy, use of Dimension [place] TBIL is not recommended. Chloride [Moles/Vol] 101 mmol/L 98-107 [facility] Work Phone: [phone] Cholesterol [Mass/Vol] 126 mg/dL <200 [facility] Work Phone: [phone] Comment on above: <200 mg/dL Desirable 200-240 mg/dL Borderline >240 mg/dL High Risk Eosinophils/100 WBC (Bld) 3.0 % 0-5 [facility] Work Phone: [phone] Glucose [Mass/Vol] 253 mg/dL 74-106 [facility] Work Phone: [phone] Comment on above: Glucose result great er than or equal to 200 mg/dLsuggests DIABETES MELLITUS per A.D.A. criteria. Neutrophils (Bld) [#/Vol] 4.5 10*3/uL 2.0-7.7 [facility] Work Phone: [phone] Neutrophils/100 WBC (Bld) 63.1 % 47-70 [facility] Work Phone: [phone] Potassium [Moles/Vol] 3.9 mmol/L 3.5-5.1 [facility] Work Phone: [phone] Protein [Mass/Vol] 7.1 g/dL 6.4-8.2 [facility] Work Phone: [phone] Sodium [Moles/Vol] 136 mmol/L 136-145 [facility] Work Phone: [phone] Triglyceride [Mass/Vol] 127 mg/dL [facility] Work Phone: [phone] Comment on above: The drugs N-Acetylcy steine and Metamizole may falsely depress this assay.Serum Triglycerides Reference Interval Normal <150 mg/dL Borderline high 150 - 199 mg/dL High 200 - 499 mg/dL Very High > or = 500 mg/dL WBC (Bld) [#/Vol] 7.1 10*3/uL 4.4-11.0 [facility] Work Phone: [phone] Bilirubin Test strip Ql (U)o n 03-21-2021 Bilirubin Ql (U) Negative Negative [facility] Work Phone: [phone] Blood erythrocytes count (nu mber/volume)on 03-21-2021 RBC (Bld) [#/Vol] 4.59 10*6/uL 4.2-5.4 [facility] Work Phone: [phone] Blood hemoglobin measurement (mass/volume)on 03-21-2021 Hemoglobin (Bld) [Mass/Vol] 12.9 g/dL 12.0-15.0 [facility] Work Phone: [phone] Blood lymphocytes/100 leukoc yteson 03-21-2021 Lymphocytes/100 WBC (Bld) 26.1 % 19-41 [facility] Work Phone: [phone] monocytes/100 leukocyt eson 03-21-2021 Monocytes/100 WBC (Bld) 6.8 % 0-10 [facility] Work Phone: [phone] Blood platelet mean volumeon 03-21-2021 Platelet mean volume (Bld) [Entitic vol] 12.9 fL 6.2-12.0 [facility] Work Phone: [phone] Determination of erythrocyte mean corpuscular volume (MCV)on 03-21-2021 MCV (RBC) [Entitic vol] 87.1 fL 81-99 [facility] Work Phone: [phone] Erythrocyte sedimentation ra derrell 03-21-2021 ESR (Bld) [Velocity] 4 mm/h 0-30 [facility] Work Phone: [phone] Hematocrit Auto (Bld) [Volum e fraction]on 03-21-2021 Hematocrit (Bld) [Volume fraction] 40.0 % 37-47 [facility] Work Phone: [phone] Ketones Test strip Ql (U)on 03-21-2021 Ketones Ql (U) Negative Negative [facility] Work Phone: [phone] Laboratory - Chemistry and C hemistry - challengeon 03-21-2021 ALP [Catalytic activity/Vol] 80 U/L 45-117 [facility] Work Phone: ALT [Catalytic activity/Vol] 31 U/L 13-56 [facility] Work Phone: [phone] CO2 [Moles/Vol] 27.0 mmol/L 21.0-32.0 [facility] Work Phone: Globulin (S) [Mass/Vol] 3.0 g/dL 2.2-4.2 [facility] Work Phone: [phone] Urea nitrogen/Creatinin e [Mass ratio] 14.3 mg/mg 10-20 [facility] Work Phone: [phone] Laboratory - Hematology and Cell countson 03-21-2021 Erythrocyte distribution width (RBC) [Entitic vol] 43.1 fL 35.1-43.9 [facility] Work Phone: [phone] Erythrocyte distribution width (RBC) [Ratio] 13.6 % 11.6-14.6 [facility] Work Phone: Immature granulocytes/100 WBC (Bld) 0.100 % 0.0-0.9 [facility] Work Phone: [phone] Comment on above: IG% - Immature Granu locytes (promyelocytes, myelocytes and metamyelocytes) > 1% indicates that a LEFT SHIFT is Present. MCH (RBC) [Entitic mass] 28.1 pg 27.0-32.0 [facility] Work Phone: [phone] Nucleated RBC/100 WBC (Bld) [Ratio] 0 % 0-5 [facility] Work Phone: [phone] MCHC Auto (RBC) [Mass/Vol]on 03-21-2021 MCHC (RBC) [Mass/Vol] 32.3 g/dL 32-36 [facility] Work Phone: [phone] Mucus LM Ql (Urine sed)on Mucus Ql (Urine sed) 0 SEEN /hpf [facility] Work Phone: [phone] Nitrite Test strip Ql (U)on 03-21-2021 Nitrite Ql (U) Negative Negative [facility] Work Phone: [phone] Panel Informationon 03-21 Estimated GFR (MDRD) Amer 84 mL/min >60 [facility] Work Phone: Comment on above: GFR Calc Estimated GFR (MDRD) Non-Af Amer 69 mL/min >60 [facility] Work Phone: [phone] Comment on above: Non- GFR Calc Thyroid Stimulating Hormone (TSH) 2.99 uIU/mL 0.358-3.74 [facility] Work Phone: [phone] Urine Microalbumin/Creat inine Ratio 19.4 mg/g CRE <30 [facility] Work Phone: [phone] Vitamin D 25-Hydroxy 26.3 ng/mL [facility] Work Phone: [phone] Comment on above: Vitamin D 25(OH) Sta tus Range Deficiency <20 ng/mL (50nmol/L) Insufficiency 20 - 30 ng/mL (50 - 75 nmol/L) Sufficiency 30 - 100 ng/mL (75 - 250 nmol/L) Toxicity >100 ng/mL (>250 nmol/L) Platelets bldon 03-21-2021 Platelets (Bld) [#/Vol] 221 10*3/uL 150-450 [facility] Work Phone: Protein Test strip Ql (U)on 03-21-2021 Protein Ql (U) Negative Negative [facility] Work Phone: Serum or plasma albumin tricia urement (mass/volume)on 03-21-2021 Albumin [Mass/Vol] 4.1 g/dL 3.2-5.0 [facility] Work Phone: Serum or plasma albumin/glob ulin mass ratioon 03-21-2021 Albumin/Globulin [Mass ratio] 1.4 {ratio} 0.9-2.4 [facility] Work Phone: Serum or plasma calcium tricia urement (mass/volume)on 03-21-2021 Calcium [Mass/Vol] 9.2 mg/dL 8.5-10.1 [facility] Work Phone: Serum or plasma cholesterol in HDL measurement (mass/volume)on 03-21-2021 Cholesterol in HDL [Mass/Vol] 60 mg/dL [facility] Work Phone: Comment on above: The drugs N-Acetylcy steine and Metamizole may falsely depress this assay. Reference Range HDL <40 mg/dL Low HDL Cholesterol HDL >or= 60 mg/dL High HDL Cholesterol Serum or plasma cholesterol in VLDL measurement (mass/volume)on 03-21-2021 Cholesterol in VLDL [Mass/Vol] 25 mg/dL 5-40 [facility] Work Phone: Serum or plasma creatinine m easurement (mass/volume)on 03-21-2021 Creatinine [Mass/Vol] 0.84 mg/dL 0.55-1.02 [facility] Work Phone: Comment on above: The validity of the calculated GFR & GFRAA in patients over 70 years has not been determined. Clinical correlation is essential. Serum or plasma low density lipoprotein (LDL) cholesterol measurement (mass/volume)on 03-21-2021 Cholesterol in LDL [Mass/Vol] 41 mg/dL 0-130 [facility] Work Phone: Serum or plasma urea nitroge n measurement (mass/volume)on 03-21-2021 Urea nitrogen [Mass/Vol] 12 mg/dL 7-18 [facility] Work Phone: Squamous epithelial cells de tection in urine sediment by light microscopyon 03-21-2021 Epithelial cells.squamous LM Ql (Urine sed) 0 SEEN /hpf [facility] Work Phone: Thin prep Papanicolaou smear with manual screeningon 03-21-2021 Thin prep Papanicolaou smear with manual screening 17 U/L 15-37 [facility] Work Phone: Thin prep Papanicolaou smear with manual screening 8 5-15 [facility] Work Phone: Thin prep Papanicolaou smear with manual screening 12.2 mg/L NO RANGE EST. [facility] Work Phone: Urine blood detectionon 03-10 RBC Ql (U) Negative Negative [facility] Work Phone: RBC Ql (U) 0 SEEN /hpf [facility] Work Phone: Urine clarityon 03-21-2021 Clarity (U) Clear Clear [facility] Work Phone: Urine color determinationon 03-21-2021 Color (U) Yellow Yellow [facility] Work Phone: Urine creatinine measurement (mass/volume)on 03-21-2021 Creatinine (U) [Mass/Vol] 62.80 mg/dL NO RANGE EST. [facility] Work Phone: Urine glucose detectionon Glucose Ql (U) 1000 mg/dl Normal [facility] Work Phone: Urine leukocyte esterase det ection by dipstickon 03-21-2021 Leukocyte esterase Test strip Ql (U) 100 /ul Negative [facility] Work Phone: Urine pHon 03-21-2021 pH (U) 6.0 [pH] [facility] Work Phone: Urine sediment bacteria coun t by microscopy (number/high power field)on 03-21-2021 Bacteria LM.HPF (Urine sed) [#/Area] 0 /[HPF] None Seen [facility] Work Phone: Urine specific gravity measu rementon 03-21-2021 Specific gravity (U) [Rel density] 1.015 [facility] Work Phone: Urobilinogen Auto test strip Ql (U)on 03-21-2021 Urobilinogen Ql (U) Normal mg/dl Normal [facility] Work Phone: Whole blood hemoglobin A1c/t otal hemoglobin ratio (mass fraction)on 03-21-2021 HbA1c (Bld) [Mass fraction] 6.4 % 3.8-5.6 [facility] Work Phone: Comment on above: Normal < 5.7 % Predi abetic 5.7 - 6.4 % Diabetic >or= 6.5 % Please note range changes. .Auto Diffon 10-28-2018 Ammonia (P) [Mass/Vol] 0.90 10 3/mcL Normal 0.15-1.00 [facility] ([place]) Comment on above: Performed By: #### C THEO DAVIS ANEU #### [address] [address] #### BMP, GFR #### [address] [address] Basophils (Bld) [#/Vol] 0.00 10 3/mcL Normal 0.00-0.19 [facility] ([place]) Comment on above: Performed By: #### C THEO DAVIS ANEU #### [address] [address] #### BMP, GFR #### [address] [address] Basophils/100 WBC (Bld) 0.4 % Normal 0.0-2.5 [facility] ([place]) Comment on above: Performed By: #### C BC, ADIFF, ANEU #### [address] [address] #### BMP, GFR #### [address] [address] Eosinophils (Bld) [#/Vol] 0.20 10 3/mcL Normal 0.00-0.40 [facility] ([place]) Comment on above: Performed By: #### C BC, ADIFF, ANEU #### [place] [address] #### BMP, GFR #### [address] [address] Eosinophils/100 WBC (Bld) 2.0 % Normal 0.0-7.0 [facility] ([place]) Comment on above: Performed By: #### C BC, ADIFF, ANEU #### [place] [address] #### BMP, GFR #### [address] [address] Lymphocytes (Bld) [#/Vol] 1.50 10 3/mcL Normal 0.77-3.85 [facility] ([place]) Comment on above: Performed By: #### C BC, ADIFF, ANEU #### [place] [address] #### BMP, GFR #### [address] [address] Lymphocytes/100 WBC (Bld) 14.7 % Normal 10.0-50.0 [facility] ([place]) Comment on above: Performed By: #### C BC, ADIFF, ANEU #### [place] [address] #### BMP, GFR #### [address] [address] Monocytes/100 WBC (Bld) 8.8 % Normal 1.7-13.0 [facility] ([place]) Comment on above: Performed By: #### C BC, ADIFF, ANEU #### [facility] [address] [place], [place] [address] #### BMP, GFR #### [facility] [address] [place] [address] Neutrophils/100 WBC (Bld) 74.1 % Normal 37.0-80.0 [facility] ([place]) Comment on above: Performed By: #### C BC, ADIFF, ANEU #### [place] [id number] [place], [place] [address] #### BMP, GFR #### [address] [address] .GFRon 10-28-2018 GFR Non- 66 ml/min/1.73sqm Normal [facility] ([place]) Comment on above: Result Comment: GFR Population mean for , Non- Americans Ages 20-29 = 116 mL/min/1.73 sq.m. Ages 30-39 = 107 mL/min/1.73 sq.m. Ages 40-49 = 99 mL/min/1.73 sq.m. Ages 50-59 = 93 mL/min/1.73 sq.m. Ages 60-69 = 85 mL/min/1.73 sq.m. Ages 70+ = 75 mL/min/1.73 sq.m. Chronic Kidney Disease: Less than 60 mL/min/1.73 square meters End Stage Renal Disease: Less than 15 mL/min/1.73 square meters Performed By: #### C BCSONIAIFF, ANEU ####[address] [address]#### BMP, GFR ####[address] [address] GFR 80 ml/min/1.73sqm Normal [facility] ([place]) Comment on above: Result Comment: GFR Population mean for , Non- Americans Ages 20-29 = 116 mL/min/1.73 sq.m. Ages 30-39 = 107 mL/min/1.73 sq.m. Ages 40-49 = 99 mL/min/1.73 sq.m. Ages 50-59 = 93 mL/min/1.73 sq.m. Ages 60-69 = 85 mL/min/1.73 sq.m. Ages 70+ = 75 mL/min/1.73 sq.m. Chronic Kidney Disease: Less than 60 mL/min/1.73 square meters End Stage Renal Disease: Less than 15 mL/min/1.73 square meters Performed By: #### C THEO DAVIS, ANEU ####[address] [place], [place] [address]#### BMP, GFR ####[address] [address] .NEUABSon 10-28-2018 Neutrophils (Bld) [#/Vol] 7.40 10 3/mcL High 2.85-6.16 [facility] ([place]) Comment on above: Performed By: #### C THEO DAVIS, ANEU #### [address] [address] #### BMP, GFR #### [place] [address] BMPon 10-28-2018 Calcium [Mass/Vol] 7.9 mg/dL Low 8.4-10.2 [facility] ([place]) Comment on above: Performed By: #### C THEO DAVIS, ANEU ####[address] [address]#### BMP, GFR ####[address] [address] Chloride [Moles/Vol] 105 mmol/L Normal 98-107 [facility] ([place]) Comment on above: Performed By: #### C THEO DAVIS, ANEU ####[address] [address]#### BMP, GFR ####[facility] [place] [address] CO2 [Moles/Vol] 26 mmol/L Normal 23-31 [facility] ([place]) Comment on above: Performed By: #### C THEO DAVIS, ANEU ####[address] [place], [place] [id number]#### BMP, GFR ####[address] [address] Creatinine [Mass/Vol] 0.83 mg/dL Normal 0.55-1.02 [facility] ([place]) Comment on above: Performed By: #### C BC, ADIFF, ANEU ####[address] [place] [address]#### BMP, GFR ####[place] [address] Electrolyte Balance 9.0 mEq/L Normal [facility] ([place]) Comment on above: Performed By: #### C BC, ADIFF, ANEU ####[place] [address]#### BMP, GFR ####[place] [address] Glucose [Mass/Vol] 223 mg/dL High 83-110 [facility] ([place]) Comment on above: Performed By: #### C BC ADIFF, ANEU ####[place] [place] [address]#### BMP, GFR ####[place] [address] Potassium [Moles/Vol] 4.0 mmol/L Normal 3.5-5.1 [facility] ([place]) Comment on above: Performed By: #### C BC, ADIFF, ANEU ####[address] [place] [address]#### BMP, GFR ####[place] [address] Sodium [Moles/Vol] 140 mmol/L Normal 136-145 [facility] ([place]) Comment on above: Performed By: #### C BC, ADIFF, ANEU ####[address] [place] [address]#### BMP, GFR ####[place] [address] Urea nitrogen [Mass/Vol] 11 mg/dL Normal 7-18 [facility] ([place]) Comment on above: Performed By: #### C BC, ADIFF, ANEU ####[place] [address]#### BMP, GFR ####[facility] [place] [address] Urea nitrogen/Creatinin e [Mass ratio] 13 ratio Normal 7-27 [facility] ([place]) Comment on above: Performed By: #### C BC, ADIFF, ANEU ####[place] [address]#### BMP, GFR ####[address] [address] CBCon 10-28-2018 Erythrocyte distribution width (RBC) [Ratio] 13.3 % Normal 11.5-14.5 [facility] ([place]) Comment on above: Performed By: #### C BC, ADIFF, ANEU #### [place] [address] #### BMP, GFR #### [place] [address] Hematocrit (Bld) [Volume fraction] 33.1 % Low 37.0-47.0 [facility] ([place]) Comment on above: Performed By: #### C BC, ADIFF, ANEU #### [place] [address] #### BMP, GFR #### [place] [address] Hemoglobin (Bld) [Mass/Vol] 11.2 G/dL Low 12.0-16.0 [facility] ([place]) Comment on above: Performed By: #### C BC, ADIFF, ANEU #### [place] [address] #### BMP, GFR #### [address] [address] MCH (RBC) [Entitic mass] 30.9 pg Normal 27.0-31.2 [facility] ([place]) Comment on above: Performed By: #### C BC, ADIFF, ANEU #### [place] [address] #### BMP, GFR #### [address] [address] MCHC (RBC) [Mass/Vol] 33.9 G/dL Normal 33.0-37.0 [facility] ([place]) Comment on above: Performed By: #### C BC, ADIFF, ANEU #### [address] [address] #### BMP, GFR #### [address] [address] MCV (RBC) [Entitic vol] 91.0 fL Normal 80.0-94.0 [facility] ([place]) Comment on above: Performed By: #### C BC, SONIAIFF, ANEU #### [place] [address] #### BMP, GFR #### [address] [address] Platelet mean volume (Bld) [Entitic vol] 10.5 fL High 7.4-10.4 [facility] ([place]) Comment on above: Performed By: #### C BC, ADIFF, ANEU #### [place] [address] #### BMP, GFR #### [address] [address] Platelets (Bld) [#/Vol] 141 10 3/mcL Normal 130-400 [facility] ([place]) Comment on above: Performed By: #### C SUSAN, ADIFF, ANEU #### [place] [address] #### BMP, GFR #### [address] [address] RBC (Bld) [#/Vol] 3.64 10 6/mcL Low 4.20-5.40 [facility] ([place]) Comment on above: Performed By: #### C BC, ADIFF, ANEU #### [address] [address] #### BMP, GFR #### [address] [address] WBC (Bld) [#/Vol] 10.00 10 3/mcL Normal 4.60-10.80 [facility] ([place]) Comment on above: Performed By: #### C THEO DAVIS ANEU #### [address] [address] #### BMP, GFR #### [address] [address] XR KNEE 1 OR 2 VIEWS RIGHTon 10-28-2018 XR KNEE 1 OR 2 VIEWS RIGHT ORIGINAL XR KNEE portable AP and crosstable lateral 2 VIEWS RIGHT CLINICAL STATEMENT: Status Post Arthroplasty check prosthesis alignment COMPARISON: CT 10/12/2018 FINDINGS: There 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 Expected postoperative changes in the soft tissues. IMPRESSION: Expected postoperative appearance of the knee prosthesis. Interpreted By: Mohit Lees MD Preliminary Report By: Mohit Lees MD Electronically Signed By: Mohit Lees MD Dictated Date: 10/28/2018 10:21:00 AM Prelim Date: 10/28/2018 10:21:00 AM Sign Date: 10/28/2018 10:21:40 AM Normal [facility] ([place]) .Auto Diffon 10-16-2018 Ammonia (P) [Mass/Vol] 0.50 10 3/mcL Normal 0.15-1.00 [facility] ([place]) Comment on above: Performed By: #### C THEO DAVIS ANEU #### [address] [address] #### BMP, GFR #### [address] [address] Basophils (Bld) [#/Vol] 0.10 10 3/mcL Normal 0.00-0.19 [facility] ([place]) Comment on above: Performed By: #### C THEO DAVIS ANEU #### [address] [address] #### BMP, GFR #### [address] [address] Basophils/100 WBC (Bld) 1.0 % Normal 0.0-2.5 [facility] ([place]) Comment on above: Performed By: #### C BC, ADIFF, ANEU #### [address] [address] #### BMP, GFR #### [address] [address] Eosinophils (Bld) [#/Vol] 0.30 10 3/mcL Normal 0.00-0.40 [facility] ([place]) Comment on above: Performed By: #### C BC, ADIFF, ANEU #### [address] [address] #### BMP, GFR #### [address] [address] Eosinophils/100 WBC (Bld) 4.3 % Normal 0.0-7.0 [facility] ([place]) Comment on above: Performed By: #### C BC, ADIFF, ANEU #### [address] [address] #### BMP, GFR #### [address] [address] Lymphocytes (Bld) [#/Vol] 2.20 10 3/mcL Normal 0.77-3.85 [facility] ([place]) Comment on above: Performed By: #### C BC, ADIFF, ANEU #### [place] [address] #### BMP, GFR #### [address] [address] Lymphocytes/100 WBC (Bld) 29.8 % Normal 10.0-50.0 [facility] ([place]) Comment on above: Performed By: #### C BC, ADIFF, ANEU #### [address] [address] #### BMP, GFR #### [address] [address] Monocytes/100 WBC (Bld) 6.6 % Normal 1.7-13.0 [facility] ([place]) Comment on above: Performed By: #### C BC, ADIFF, ANEU #### [place] [id number] #### BMP, GFR #### [address] [address] Neutrophils/100 WBC (Bld) 58.3 % Normal 37.0-80.0 [facility] ([place]) Comment on above: Performed By: #### C BC, THEO, ANEU #### [address] [place] [address] [place], [place] [address] #### BMP, GFR #### [address] [address] .GFRon 10-16-2018 GFR 92 ml/min/1.73sqm Normal [facility] ([place]) Comment on above: Result Comment: GFR Population mean for , Non- Americans Ages 20-29 = 116 mL/min/1.73 sq.m. Ages 30-39 = 107 mL/min/1.73 sq.m. Ages 40-49 = 99 mL/min/1.73 sq.m. Ages 50-59 = 93 mL/min/1.73 sq.m. Ages 60-69 = 85 mL/min/1.73 sq.m. Ages 70+ = 75 mL/min/1.73 sq.m. Chronic Kidney Disease: Less than 60 mL/min/1.73 square meters End Stage Renal Disease: Less than 15 mL/min/1.73 square meters Performed By: #### C BC, THEO, ANEU #### [place] [id number] [place], [place] [address] #### BMP, GFR #### [address] [address] GFR Non- 76 ml/min/1.73sqm Normal [facility] ([place]) Comment on above: Result Comment: GFR Population mean for , Non- Americans Ages 20-29 = 116 mL/min/1.73 sq.m. Ages 30-39 = 107 mL/min/1.73 sq.m. Ages 40-49 = 99 mL/min/1.73 sq.m. Ages 50-59 = 93 mL/min/1.73 sq.m. Ages 60-69 = 85 mL/min/1.73 sq.m. Ages 70+ = 75 mL/min/1.73 sq.m. Chronic Kidney Disease: Less than 60 mL/min/1.73 square meters End Stage Renal Disease: Less than 15 mL/min/1.73 square meters Performed By: #### C THEO DAVIS, ANEU #### [address] [address] #### BMP, GFR #### [address] [address] .NEUABSon 10-16-2018 Neutrophils (Bld) [#/Vol] 4.30 10 3/mcL Normal 2.85-6.16 [facility] ([place]) Comment on above: Performed By: #### C THEO DAVIS, ANEU #### [place] [address] #### BMP, GFR #### [place] [address] BMPon 10-16-2018 Calcium [Mass/Vol] 8.8 mg/dL Normal 8.4-10.2 [facility] ([place]) Comment on above: Performed By: #### C THEO DAVIS, ANEU #### [place] [address] #### BMP, GFR #### [place] [address] Chloride [Moles/Vol] 102 mmol/L Normal 98-107 [facility] ([place]) Comment on above: Performed By: #### THEO CARTY, ANEU #### [place] [address] #### BMP, GFR #### [address] [address] CO2 [Moles/Vol] 27 mmol/L Normal 23-31 [facility] ([place]) Comment on above: Performed By: #### Evelyn DAVIS ADIFF, ANEU #### [address] [address] #### BMP, GFR #### [place] [address] Creatinine [Mass/Vol] 0.74 mg/dL Normal 0.55-1.02 [facility] ([place]) Comment on above: Performed By: #### C BC, ADIFF, ANEU #### [address] [address] #### BMP, GFR #### [address] [address] Electrolyte Balance 11.0 mEq/L Normal [facility] ([place]) Comment on above: Performed By: #### C BC, ADIFF, ANEU #### [address] [address] #### BMP, GFR #### [address] [address] Glucose [Mass/Vol] 227 mg/dL High 83-110 [facility] ([place]) Comment on above: Performed By: #### C BC, ADIFF, ANEU #### [address] [address] #### BMP, GFR #### [address] [address] Potassium [Moles/Vol] 4.2 mmol/L Normal 3.5-5.1 [facility] ([place]) Comment on above: Performed By: #### C BC, ADIFF, ANEU #### [address] [address] #### BMP, GFR #### [address] [address] Sodium [Moles/Vol] 140 mmol/L Normal 136-145 [facility] ([place]) Comment on above: Performed By: #### C BC, ADIFF, ANEU #### [address] [address] #### BMP, GFR #### [address] [address] Urea nitrogen [Mass/Vol] 12 mg/dL Normal 7-18 [facility] ([place]) Comment on above: Performed By: #### C BC, ADIFF, ANEU #### [address] [address] #### BMP, GFR #### [address] [address] Urea nitrogen/Creatinin e [Mass ratio] 16 ratio Normal 7-27 [facility] ([place]) Comment on above: Performed By: #### C BC, ADIFF, ANEU #### [address] [address] #### BMP, GFR #### [address] [address] CBCon 10-16-2018 Erythrocyte distribution width (RBC) [Ratio] 13.7 % Normal 11.5-14.5 [facility] ([place]) Comment on above: Performed By: #### C BC, ADIFF, ANEU #### [place] [address] #### BMP, GFR #### [place] [address] Hematocrit (Bld) [Volume fraction] 40.0 % Normal 37.0-47.0 [facility] ([place]) Comment on above: Performed By: #### C BC, ADIFF, ANEU #### [place] [address] #### BMP, GFR #### [place] [address] Hemoglobin (Bld) [Mass/Vol] 13.6 G/dL Normal 12.0-16.0 [facility] ([place]) Comment on above: Performed By: #### C BC, ADIFF, ANEU #### [place] [address] #### BMP, GFR #### [address] [address] MCH (RBC) [Entitic mass] 30.2 pg Normal 27.0-31.2 [facility] ([place]) Comment on above: Performed By: #### C BC, ADIFF, ANEU #### [address] [address] #### BMP, GFR #### [facility] [address] [place], [place] [address] MCHC (RBC) [Mass/Vol] 34.0 G/dL Normal 33.0-37.0 [facility] ([place]) Comment on above: Performed By: #### C THEO DAVIS, ANEU #### [address] [address] #### BMP, GFR #### [address] [address] MCV (RBC) [Entitic vol] 88.7 fL Normal 80.0-94.0 [facility] ([place]) Comment on above: Performed By: #### C SUSAN, THEO, ANEU #### [place] [address] #### BMP, GFR #### [address] [address] Platelet mean volume (Bld) [Entitic vol] 11.0 fL High 7.4-10.4 [facility] ([place]) Comment on above: Performed By: #### C THEO DAVIS, ANEU #### [place] [address] #### BMP, GFR #### [address] [address] Platelets (Bld) [#/Vol] 186 10 3/mcL Normal 130-400 [facility] ([place]) Comment on above: Performed By: #### C THEO DAVIS, ANEU #### [place] [address] #### BMP, GFR #### [address] [address] RBC (Bld) [#/Vol] 4.51 10 6/mcL Normal 4.20-5.40 [facility] ([place]) Comment on above: Performed By: #### C SUSAN, THEO, ANEU #### [place] [address] #### BMP, GFR #### [address] [address] WBC (Bld) [#/Vol] 7.40 10 3/mcL Normal 4.60-10.80 [facility] ([place]) Comment on above: Performed By: #### C BC, ADIFF, ANEU #### [place] [id number] [place], [place] [address] #### BMP, GFR #### [place] [id number] [place] [address] KNEE W/O CONTRAST RIGHTon 10-12-2018 CT KNEE W/O CONTRAST RIGHT ORIGINAL CT KNEE W/O CONTRAST RIGHT This exam was performed according to our departmental dose optimization program, and includes the following measures where applicable: automated exposure control, adjustment of the mAs and/or kVp according to patient size and/or exam, and an iterative reconstruction algorithm. CLINICAL STATEMENT: UNILATERAL PRIMARY OSTEOARTHRITIS COMPARISON: 05/22/2018 FINDINGS: Images were obtained at the RIGHT hip, knee, and ankle. Sagittal and coronal reformations were obtained at the knee. There is no fracture. Lateral tilting of the patella with marked narrowing of the lateral patellofemoral joint space is noted. There is tricompartmental osteophyte formation. Chondrocalcinosis of menisci is demonstrated. Posterior cruciate ligament is partially calcified. There also is calcification at the gastrocnemius origin. Moderate size effusion is present. There is a complex popliteal cyst as measuring approximately 5.6 cm in craniocaudal dimension. There are no acute findings of the RIGHT hip or ankle. IMPRESSION: Advanced degenerative change RIGHT knee. Interpreted By: Mima Gray MD Preliminary Report By: Mima Gray MD Electronically Signed By: Mima Gray MD Dictated Date: 10/12/2018 12:54:37 PM Prelim Date: 10/12/2018 12:54:37 PM Sign Date: 10/12/2018 12:59:52 PM Normal [facility] ([place]) CT KNEE W/O CONTRAST RIGHTon 05-22-2018 CT KNEE W/O CONTRAST RIGHT ORIGINAL CT KNEE W/O CONTRAST RIGHT CLINICAL STATEMENT: VARUS DEFORMITY RIGHT KNEE COMPARISON: None FINDINGS: This exam was performed according to our departmental dose-optimization program which includes automated exposure control, adjustment of the mA and/or kVp according to patient size and/or use of iterative reconstruction technique where applicable. Lateral tilt/subluxation of the patella noted. Mild to moderate lateral tibiofemoral compartment joint space loss and spurring seen. There is severe patellofemoral joint space loss and spurring and moderate to severe joint space loss and spurring in the medial tibiofemoral compartment. Subchondral areas of sclerosis and subchondral cysts seen in the medial tibiofemoral compartment. Mild chondrocalcinosis is suspected. There is calcification associated with the posterior cruciate ligament. Calcification seen at the gastrocnemius origins. A small joint effusion identified. No fracture seen in the knee. Survey images of the RIGHT hip demonstrate degenerative changes. Survey images of the RIGHT ankle also demonstrate mild degenerative changes. No acute osseous abnormality seen. IMPRESSION: 1. Severe degenerative changes in the RIGHT knee. There is mild chondrocalcinosis. 2. Ligamentous and tendinous calcifications in the RIGHT knee. 3. Small joint effusion Interpreted By: Jay Marie MD Preliminary Report By: Jay Marie MD Electronically Signed By: Jay Marie MD Dictated Date: 05/22/2018 2:38:56 PM Prelim Date: 05/22/2018 2:38:56 PM Sign Date: 05/22/2018 2:44:37 PM Normal [facility] ([place]) Encounters Encounter Date Encounter Type Care Provider Facility Start: 08-18-2024 ambulatory Ronak Escalante Facilit y:[facility] Start: 08-16-2024 End: 08-16-2024 ambulatory Ronak Escalante Facility:[facility] Start: 08-11-2024 End: 08-11-2024 ambulatory Ronak Escalante Facility:[facility] Start: 08-03-2024 Encounter for other preprocedural examination Sheridan Nowak [facility] Start: 07-15-2024 End: 08-07-2024 ambulatory Ronak Escalante Facility:[facility] Start: 07-01-2024 End: 07-01-2024 ambulatory Ronak Escalante Facility:[facility] Start: 06-23-2024 Encounter for other preprocedural examination Sylvain Salamanca [facility] Start: 06-21-2024 End: 06-23-2024 ambulatory Ronak Escalante Facility:[facility] Start: 06-14-2024 End: 06-14-2024 ambulatory Ronak Escalante [facility] Start: 05-31-2024 End: 05-31-2024 ambulatory Ronak Escalante Facility:[facility] Start: 05-20-2024 End: 05-20-2024 ambulatory Ronak Escalante Facility:[facility] Start: 04-06-2024 ambulatory Ronak Escalante Facilit y:[facility] Start: 04-02-2024 End: 04-02-2024 ambulatory Ronak Escalante Facility:[facility] Start: 03-18-2024 End: 03-18-2024 ambulatory Sheridan Woods Facility:[facility] Start: 01-22-2024 End: 01-22-2024 ambulatory Sheridan Woods Facility:[facility] Start: 12-16-2023 End: 12-16-2023 ambulatory Ronak Escalante Facility:[facility] Start: 12-12-2023 End: 12-12-2023 ambulatory Ronak Escalante Facility:[facility] Start: 12-08-2023 End: 12-08-2023 ambulatory Michael Gotti Facility:[facility] Start: 10-16-2023 End: 10-16-2023 ambulatory Ronak Escalante Facility:[facility] Start: 10-02-2023 ambulatory Yazan Fairbanks Facility :[facility] Start: 10-02-2023 End: 10-02-2023 ambulatory Ronak Escalante Facility:[facility] Start: 09-22-2023 End: 09-22-2023 ambulatory Sheridan Woods Facility:[facility] Start: 09-19-2023 End: 09-19-2023 ambulatory Ronak Escalante Facility:[facility] Start: 09-05-2023 End: 09-05-2023 ambulatory Ronak Escalante Facility:[facility] Start: 02-18-2023 End: 02-26-2023 Evaluation and management of inpatient [facility] Start: 11-06-2021 End: 11-06-2021 ambulatory [facility] Work Phone: Start: 11-06-2021 End: 11-06-2021 Patient encounter procedure [facility] Start: 07-05-2021 End: 07-05-2021 Patient encounter procedure [facility] Start: 03-21-2021 End: 03-21-2021 Patient encounter procedure [facility] Start: 05-18-2018 Patient encounter procedure SHERIDAN NOWAK Facility:[facility] Plan of Treatment Date Care Activity Detail Author Start: 09-03-2024 ambulatory Ambulatory Facility:[facility] Payers Date Payer Category Payer Self-pay [id number] 2023 Private Health Insurance 2023 Self-pay [id number] 2015 Private Health Insurance [id number] 2004 Medicare [id number] Unknown [id number] 2.16.8 40.1.965737.3.579.2.462 Unknown [id number] 2.16.8 40.1.259663.3.579.2.462 Unknown [id number] 2.16.8 40.1.261368.3.579.2.462 Unknown [id number] 2.16.8 40.1.505419.3.579.2.462 Unknown [id number] 2.16.8 40.1.406064.3.579.2.462 Unknown [id number] 2.16.8 40.1.446798.3.579.2.462 Unknown [id number] 2.16.8 40.1.367532.3.579.2.462 Unknown [id number] 2.16.8 40.1.268047.3.579.2.462 Unknown [id number] 2.16.8 40.1.132656.3.579.2.462 Unknown [id number] 2.16.8 40.1.281464.3.579.2.462 Unknown [id number] 2.16.8 40.1.456884.3.579.2.462 Unknown [id number] 2.16.8 40.1.530356.3.579.2.462 Unknown [id number] 2.16.8 40.1.787387.3.579.2.462 Unknown [id number] 2.16.8 40.1.079798.3.579.2.462 Unknown [id number] 2.16.8 40.1.135774.3.579.2.462 Unknown [id number] 2.16.8 40.1.928519.3.579.2.462 Unknown [id number] 2.16.8 40.1.392457.3.579.2.462 Unknown [id number] 2.16.8 40.1.239394.3.579.2.462 Unknown [id number] 2.16.8 40.1.026072.3.579.2.462 Unknown [id number] 2.16.8 40.1.515305.3.579.2.462 Unknown [id number] 2.16.8 40.1.739200.3.579.2.462 Unknown [id number] 2.16.8 40.1.793687.3.579.2.462 Unknown [id number] 2.16.8 40.1.309655.3.579.2.462 Unknown [id number] 2.16.8 40.1.291018.3.579.2.462 Unknown [id number] 2.16.8 40.1.728111.3.579.2.462 Social History Date Type Detail [facility] Work Phone: Start: 1940 Sex Assigned At Female W [facility] Work Phone: Clinical Notes 02-19-2023 to 06-23-2024 Note Date & Type Note Facility 06-23-2024 Note [facility] Medical Records Department [address] [place] [address] Discharge Summary 06/23/24 1025 MR#: [id number] Acct: [id number] Name: Jose PIEDRA Rep #: [id number] : 1940 84 From: Charly GARAY PA-C PCP: Dr. Ronak Escalante MD Status:ADM ALBERTA Location: [place] [address] Providers Date of Admission: 06/21/24 Date of Discharge: 06/23/24 Primary Care Physician: Dr. Ronak Escalante MD Consultations 06/21/24 07:11 Consult: Hospitalist Routine Consulting Provider: Sylvain Salamanca Reason for Consult: post op med management EMERGENT Consult: No MD Notified: Yes Date Notified: 06/21/24 Time Notified: 12:48 Method of Notification: Text Reason For Visit: RIGHT REVERSE TOTAL SHOULDER ARTHROPLASTY, ERAS Diagnosis Discharge Diagnosis (1) Status post reverse total arthroplasty of right shoulder: Status: Acute Code(s): Z96.611 - Presence of right artificial shoulder joint Plan: 1. S/P right reverse total shoulder arthroplasty POD #2 2. Continue Pain Medications: Tylenol, meloxicam, and oxycodone. Do not take any other nonsteroidal anti-inflammatories while using meloxicam/Mobic. Patient was getting Percocet from Dr. Barrera preoperatively. She was advised to not combine postoperative medication that we are prescribing. We will manage for the first 6 weeks. Patient did voiced understanding. 3. DVT Prophylaxis: Take 81 mg aspirin twice daily for 2 weeks postoperatively for DVT prophylaxis. Patient denies past history of DVT or pulmonary embolism. 4. PT/OT: Continue with UltraSling at all times except to come out for range of motion exercises of the elbow and pendulum exercise 3 times daily. No range of motion of the postoperative shoulder until outpatient physical therapy begins. Outpatient physical therapy will begin 2 weeks postoperatively after follow-up with [facility] with x-rays and incision check. 5. H H: Preoperatively patient's hemoglobin was 10.9. She was started on anemia protocol. Postoperatively hemoglobin was stable at 10.4. Patient does have follow-up with her primary care provider next week. We will give her a lab order that she will get done prior to her appointment. I did advise her to continue on the ferrous sulfate and folic acid. Based on her follow-up with her primary care provider and lab work I would defer to the PCP for further management and treatment. She did voice understanding. 6. Currently on doxycycline for 2 weeks postoperatively due to A1c greater than 7.0. I discussed with the patient potential side effects of doxycycline including sensitivity to the sunlight and increased risk of skin burn. Recommend patient take appropriate precautions. Also recommend patient to take probiotic while on the antibiotic. Patient voiced understanding agreement. 7. Encouraged Incentive Spirometry 8. Patient is aware of postoperative constipation that can occur from 1-3 days postoperatively. Will continue with senna 2 tablets twice daily until first bowel movement. Patient was advised if not having a bowel movement after day 3 she is to contact orthopedics so appropriate change can be made. Patient voiced understanding. 9. Continue postoperative medical treatment per medicine 10. Disposition: Patient is doing much better today. She is wishing to go home today. She would like her prescriptions E scribed to [facility] outpatient pharmacy. Patient has follow-up with her primary care provider next week. Lab order will be placed on chart for continued management of her anemia. She will continue on the ferrous sulfate and folic acid. I would defer to the primary care provider for further treatment and management. Patient has outpatient physical therapy established after her 2-week follow-up. She will follow-up per postoperative instructions. Upon discharge she will contact our office with any concerns. Case was discussed with the care management team. I have reviewed the [place] Automated Rx Reporting System (OARRS) report for this patient for refill pattern and other prescriber involvement as part of the appropriate surveillance for the provision of acute and chronic controlled medications. The report was requested and reviewed on the date of this entry and was considered in the prescribing process. This dictation was created using voice recognition software. Phonetic and/or grammatical errors may exist. Medications at Discharge Home Medications atorvastatin 40 mg tablet 40 mg PO DAILY 02/28/22 hydrochlorothiazide 12.5 mg tablet 12.5 mg PO DAILY BP 02/28/22 timolol maleate 0.5 % eye drops 1 drp ophthalmic (eye) BID 02/28/22 lisinopril 20 mg tablet 20 mg PO QDAY 07/10/23 cholecalciferol (vitamin D3) 25 mcg (1,000 unit) capsule (Vitamin D3) 25 mcg PO BID 12/08/23 cinnamon bark 500 mg capsule (Cinnamon) 1,000 mg PO DAILY 12/08/23 (more content not included)... [facility] 06-14-2024 Note [facility] Medical Records Department [address] [place] [address] History Physical Exam 06/14/24 1306 MR#: [id number] Acct: [id number] Name: Jose PIEDRA Rep #: [id number] : 1940 84 From: Charly GARAY PA-C PCP: Dr. Ronak Escalante MD Status:[facility] Location: [place] [address] History and Physical History and Physical Patient Name: Palak Piedra : 1940From:??? CHARLY GUTIERREZ PA-C DATE OF PRE-OPERATIVE EXAM: 06/14/2024 DATE OF SURGERY:??? 06/21/2024 SCHEDULED PROCEDURE:??? Right reverse total shoulder arthroplasty HISTORY OF PRESENT ILLNESS: Preoperative history and physical exam was performed on June 14, 2024.??? This is an 84-year-old female who is been having ongoing pain in the right nondominant shoulder for several years.??? Her pain can reach 10/10 with activities.??? She does feel her daily activities have been significantly impacted due to the pain.??? She has difficulty with getting dressed and sleeping due to the pain.??? She feels her range of motion has been limited and she is weaker.??? Patient cannot recall a specific trauma or injury.??? Previous surgery has been discussed in detail with Dr. Sheridan Nowak.??? Patient denies any numbness and tingling.??? She denies past history of surgery on the right shoulder.??? She has pain and limited motion with daily hygiene purposes and activities throughout the day.??? Difficulty lifting forward and across her body due to the pain.??? Patient has received surgical clearance from the primary care provider Dr. Escalante.??? Initially patient's A1c was 10.6 and most recent A1c 7.5 in which patient is able to move forward with surgery.??? Patient has been in pain management with Dr. Barrera in which she uses Percocet.??? Patient has medical history pertinent for hypertension, psoriasis, type 2 diabetes mellitus, tardive dyskinesia, vitamin D deficiency, depression.??? Denies past history of DVT or pulmonary embolism.??? Denies any chest pain, shortness of breath, fevers chills or recent infections.??? After failing conservative measures and discussing all treatment options with Dr. Sheridan Nowak, the patient does wish to proceed with a right reverse total shoulder arthroplasty. REVIEW OF SYSTEMS: Review Of Systems: Constitutional: Denies anorexia, change in appetite, fever, difficulty sleeping, weight change. Cardiovasular: Denies chest pain, heart murmur, irregular heartbeat and peripheral vascular disease. Respiratory: Denies asthma, cough, pneumonia, sleep apnea, shortness of breath, tuberculosis and wheezing. Gastrointestinal: Denies constipation, diarrhea, heartburn, nausea, rectal itching, bloody stools and vomiting. Genitourinary: Denies incontinence. Musculoskeletal: Reports gait disturbance, pain, trouble walking and weakness, but denies leg swelling. Skin: Denies Raynaud's, history of shingles and tattoo. Neurological: Denies ambulatory dysfunction, dizziness, numbness/tingling and tremor. Psychiatric: Denies anxiety, depression, insomnia, mental illness and stress. Hematologic/Lymphatic: Denies anemia, bleeding/bruising tendency and past transfusion. Reviewed and updated. PAST MEDICAL HISTORY: Advance Care Plan: Resuscitation, DNR Effective Date: 11/13/2017 Other Directive, P.O.A. Effective Date: 11/13/2017 Other Directive, LIVING WILL Effective Date: 11/13/2017 Past Medical History: Medical Problems: Arthritis, High Blood Pressure Psoriasis - history Diabetes, Tardive Dyskinesia, vitamin D deficiency Blind - right eye Depression Accidents: Fracture - (10/01/2019) RT CLAVICLE FX Surgical Hx: Carpal Tunnel - Right - 2004 AND 2005??? [facility] Rotator Cuff - LEFT? 2004??? [facility] Knee Replacement RT - (10/27/2018[facility] right eye partial thyroidectomy - left side Hysterectomy Anesthesia Complications: Anesthesia Complications - novocaine??? - swelling and pain Assistive Devices: Glasses, Contacts - only in right eye Reviewed and updated. SOCIAL HISTORY: Social History: Marital: .Occupation: Retired.Work Status: Retired.Hand Dominance: Left-handed. Personal Habits:??? Tobacco Use: Patient has never smoked.Cigarette Use: Never.Smokeless Tobacco: Never Used Smokeless Tobacco.E-Cigarette Use: Never used.Alcohol: Denies use.Drug Use: Denies Use.Enjoy Exercising: Exercises 1-3 X/Week. Reviewed and updated. VITALS: Ht: 61.5 Wt: 151lb Wt k.494 BMI: 28.1 BP: 124/78 Pulse: 78 Resp: 17 T: 98.0 T: 36.7C Pain Level: 6 O2SatR: 97 ALLERGIES: Codeine - Rash, Itchiness Morphine - Itchiness, Anxiety, Rash Vicodin MEDICATIONS: Mupirocin 2 % use qtip and apply inside each nostril twice a day until the day of surgery, Lipitor 40 mg 1 po qday, Quinapril/Hydrochlorothiazide 20-12.5 mg po daily, Aspirin 81 81 mg 1 po qdaily, Austedo 6 mg 1po bid, Hydrochlor (more content not included)... [facility] 02-26-2023 Note Discharge Summary Karri Piedra : 1940 ADMIT DATE: 02/18/2023 DISCHARGE DATE: 02/26/2023 PRIMARY CARE PHYSICIAN: No primary care provider on file. VISIT STATUS: Admission CODE STATUS: Prior DISCHARGE DIAGNOSES: Principal Problem: Depression with suicidal ideation Active Problems: Suicidal behavior without attempted self-injury Aphasia Dysphagia Confusion Chronic insomnia Idiopathic dyskinesia Unspecified dementia HOSPITAL COURSE: The patient was admitted to the geropsychiatric unit for acute stabilization. Medical consult was called for comanagement. PT and OT evaluations were completed. She met criteria for skilled facility placement. It was suspected that general decline, intermittent confusion, has been due to underlying neurodegenerative disease, suspected dementia. Her idiopathic dyskinesia may be related to developing oral degenerative disease. She was restarted on her home medications including austedo and low-dose Zyprexa was added to target mood instability, insomnia, severe depression, suicidality, and an anxiety. She has tolerated medications well without adverse effects. She complained of intermittent abdominal pain and abdominal CT was completed indicating a possible low-dose diverticulitis, she was then started on antibiotic per internal medicine recommendation. Patient's and patient's son were updated by staff and the undersigned during hospitalization and a discharge from progress. As she has reached maximum benefit from inpatient hospitalization and she was medically and psychiatrically cleared she was discharged to resume outpatient services. Patient and her family have expressed gratitude for care and treatment. SIGNIFICANT DIAGNOSTIC STUDIES: Hemoglobin A1c 7.7 CONSULTANTS: Internal medicine, GI, PT and OT RECOMMENDED NEXT STEPS: Establish care with facility Attempt made to contact significant other to review discharge plan at time of discharge. We were able to contact significant other identified. Patient was provided opportunity to designate another possible contact and accepted. Suicide Risk Assessment Chronic Factors: physical and mental illness, familial stressors Protective Factors: desire to improve condition, external support, access to outpatient treatment, and coping skills displayed Risk Assessment: Low Modifiable Factors: no access to firearms, access removed, or removal was refused, psychiatric medication: pt received/was offered, psychiatric disorder/symptoms: address with counseling/medication during admission, outpatient treatment access: pt set-up with outpatient follow-up for psychiatric outpatient/addiction treatment, stressors: discussed in-depth, including potential solutions/coping skills, and external support: family/friends contact for collateral information and discharge planning. Safety plan was discussed with the pt, about pt calling 911 or reporting to the ED if they felt like a risk to themselves or others. Pt expressed agreement and understanding of treatment plan. DISCHARGE MEDICATIONS: Medication List START taking these medications amoxicillin-clavulanate 875-125 MG tablet Commonly known as: Augmentin Take 1 tablet by mouth in the morning and 1 tablet before bedtime. aspirin 81 MG chewable tablet Chew 1 tablet (81 mg) daily. atorvastatin 40 MG tablet Commonly known as: Lipitor Take 1 tablet (40 mg) by mouth daily. deutetrabenazine 9 MG tablet Commonly known as: Austedo Take 1 tablet (9 mg) by mouth 2 times daily. hydroCHLOROthiazide 12.5 MG tablet Commonly known as: HYDRODiuril Take 1 tablet (12.5 mg) by mouth daily. insulin glargine 100 UNIT/ML injection Commonly known as: Lantus Inject 18 Units under the skin Nightly. lisinopril 20 MG tablet Take 1 tablet (20 mg) by mouth daily. mirtazapine 15 MG tablet Commonly known as: Remeron Take 1 tablet (15 mg) by mouth Nightly. OLANZapine 2.5 MG tablet Commonly known as: ZyPREXA Take 1 tablet (2.5 mg) by mouth Nightly. pantoprazole 40 MG EC tablet Commonly known as: ProtoNix Take 1 tablet (40 mg) by mouth every morning (before breakfast). Do not crush, chew, or split. prednisoLONE acetate 1 % ophthalmic suspension Commonly known as: Pred-Forte Administer 1 drop into both eyes daily for 14 days. sertraline 100 MG tablet Commonly known as: Zoloft Take 2 tablets (200 mg) by mouth daily. timolol 0.5 % ophthalmic solution Commonly known as: Timoptic Administer 1 drop into both eyes daily. Where to Get Your Medications Information about where to get these medications is not yet available Ask your nurse or doctor about these medications amoxicillin-clavulanate 875-125 MG tablet aspirin 81 MG chewable tablet atorvastatin 40 MG tablet deutetrabenazine 9 MG tablet hydroCHLOROthiazide 12.5 MG tablet insulin glargine 100 UNIT/ML injection lisinopril 20 MG tablet mirtazapine 15 MG ta (more content not included)... [facility] 02-26-2023 Note [facility] - Infectious Diseases Advanced Practice Provider Progress Note Subjective: Following for acute uncomplicated sigmoid diverticulitis. Notes reviewed. Pt states N/V/abd pain improved since starting Augmentin. Denies fever or chills overnight. Planning to go to facility in [place]. Vitals: Patient Vitals for the past 24 hrs: BP Temp Temp src Pulse Resp SpO2 02/26/23 0809 133/61 36.8 ?C (98.2 ?F) Temporal 89 16 96 % 02/26/23 0652 (!) 146/80 37.2 ?C (99 ?F) Temporal 97 18 93 % 02/25/23 1608 139/72 36.8 ?C (98.3 ?F) Temporal 87 16 96 % Physical Exam: Physical Exam Vitals and nursing note reviewed. Constitutional: General: She is not in acute distress. Appearance: She is not ill-appearing. Comments: Pt sitting in dining area with RN, taking her morning medication. HENT: Head: Normocephalic. Mouth/Throat: Mouth: Mucous membranes are moist. Eyes: General: Right eye: No discharge. Left eye: No discharge. Extraocular Movements: Extraocular movements intact. Pulmonary: Effort: Pulmonary effort is normal. No respiratory distress. Comments: Unlabored effort on room air Musculoskeletal: Cervical back: Normal range of motion and neck supple. No rigidity. Neurological: Mental Status: She is alert. Sensory: No sensory deficit. Motor: Weakness present. Psychiatric: Mood and Affect: Mood normal. Behavior: Behavior normal. Labs: Recent Labs 02/25/23 1104 NA 134* K 4.4 CL 102 CO2 23 BUN 15 CREATININE 0.49* GLUCOSE 172* CALCIUM 9.3 PROT 6.8 BILITOT 0.3 ALKPHOS 80 AST 39 ALT 35* Recent Labs 02/25/23 1104 WBC 7.0 HGB 12.2 HCT 36.5 PLT 273 LYMPHOPCT 25.9 MONOPCT 7.2 BASOPCT 0.2 NEUTROABS 4.5 Micro: No results for input(s): COVID19 in the last 72 hours. 02/18 COVID: negative Lines: none Radiography/Echo/Other: 02/24 CT a/p 1. Questionable uncomplicated mild acute diverticulitis sigmoid colon. Apparent wall thickening involving portions of the descending colon probably related to slight under distention. 2. Cholelithiasis. Gallbladder demonstrates a somewhat contracted/tethered appearance along the gallbladder fossa possibly reflecting scarring. 3. Atherosclerosis. 4. Patchy bibasilar opacities likely reflect atelectasis. 02/22 KUB Moderate stool in the colon but no dilated bowel loops are seen; correlate for constipation. If there is concern for an abdominopelvic process not seen radiographically, consider CT or ultrasound depending on the nature of the symptoms. Right upper quadrant calcifications are present, possibly gallstones. Consider ultrasound for further evaluation. 02/18 CT head No acute intracranial process. Antimicrobials,Start/End Dates: Cipro 02/24 - 02/25 Metronidazole 02/24 Augmentin 02/25 - Impression: Acute uncomplicated sigmoid diverticulitis w/ LLQ abd pain Cholelithiasis MDD Plan: Maintain Augmentin 875 - 125mg PO q12h. Treat for 10 days through 01/03/23 Follow up with GI as recommended with established provider Dr Lozano in [place]. ID to follow sign off. Based on diagnoses and management, combination of acute and chronic problems, exacerbations and/or acuity, this visit should be considered to be of low complexity. [place], CRISTAL, PABrittanyC [facility] 02-26-2023 Note Hospitalist Progress Note 02/26/2023 [id number]: [facility] me for patient care issues. [phone]: Please [facility] Consulting Hospitalist for any issues. Subjective: Admit Date: 02/18/2023 PCP: No primary care provider on file. Room#: S4-113/S4-113 A Brief Hospital course: Karri is a 82 y.o. female pmhx below who presents to the hospital with increased confusion and suicidal thoughts. The patient has stopped taking her medications and per the patient states that she has not taken her medications for several weeks. She denies any chest pain or shortness of breath denies any acute pain. The patient is depressed with thoughts of suicidal ideation. The patient has a history of tardive dyskinesia she has not taken her medications and therefore her tardive dyskinesia has increased making it difficult for her to eat and swallow foods. We are seeing in consultation for medical management Interval History: No acute changes overnight. Patient was seen and evaluated sitting in the dinning room eating her breakfast. She reports LLQ pain is a little better. Having normal BM per nurse report. No new medical complaints. She states she will be going to [facility]. She denies any sob, cp, palpitations, urinary sx, fever or chills. BP 133/61 HR 89 No changes to medical management Adult diet Dysphagia - Pureed; High Fiber 24HR INTAKE/OUTPUT: No intake or output data in the 24 hours ending 02/26/23 0946 Past Medical History: Past Medical History: Diagnosis Date Aphasia 02/19/2023 Chronic insomnia 02/19/2023 Confusion 02/19/2023 Depression Diabetes mellitus (HCC) Dysphagia 02/19/2023 Dysphagia GERD (gastroesophageal reflux disease) HLD (hyperlipidemia) Hypertension Tardive dyskinesia 02/19/2023 Tardive dyskinesia LABS: CBC: Recent Labs 02/25/23 1104 WBC 7.0 RBC 4.23 HGB 12.2 HCT 36.5 MCV 86.3 RDW 15.3* PLT 273 BMP: Recent Labs 02/25/23 1104 NA 134* K 4.4 CL 102 CO2 23 BUN 15 CREATININE 0.49* GLUCOSE 172* CALCIUM 9.3 ANIONGAP 9 LIVER PROFILE: Recent Labs 02/25/23 1104 AST 39 ALT 35* BILITOT 0.3 ALKPHOS 80 PROT 6.8 PT/INR: No results for input(s): PROTIME, INR in the last 72 hours. CARDIAC ENZYMES: No results for input(s): TROPONINI in the last 72 hours. Procalcitonin: No results found for: PROCAL COVID-19 PCR: No results for input(s): COVID19 in the last 72 hours. Objective: Vitals: BP 133/61 Pulse 89 Temp 36.8 ?C (98.2 ?F) (Temporal) Resp 16 Ht 5' 4 (1.626 m) Comment: per pt. Wt 136 lb (61.7 kg) SpO2 96% BMI 23.34 kg/m? Pulse Ox: SpO2 Av % Min: 93 % Max: 96 % Physical Exam Constitutional: Appearance: resting in bed ill appearing NAD HENT: Head: Normocephalic and atraumatic. Cardiovascular: Rate and Rhythm: Normal rate and regular rhythm. Heart sounds: Normal heart sounds. Pulmonary: Effort: Pulmonary effort is normal. Breath sounds: Normal breath sounds and air entry. Abdominal: General: Abdomen is flat. Bowel sounds are normal. Palpations: Abdomen is soft. Tenderness: There is no abdominal tenderness. Musculoskeletal: Cervical back: Full passive range of motion without pain, normal range of motion and neck supple. Psychiatric: Attention and Perception: Attention normal. Mood and Affect: Mood is depressed. Speech: Speech is delayed. Behavior: Behavior is cooperative. Medications: amoxicillin-clavulanate, 875 mg, Oral, 2 times per day aspirin, 81 mg, Oral, Daily atorvastatin, 40 mg, Oral, Daily deutetrabenazine, 9 mg, Oral, BID hydroCHLOROthiazide, 12.5 mg, Oral, Daily influenza, 0.5 mL, IntraMUSCular, Once insulin glargine, 18 Units, SubCUTAneous, Nightly insulin lispro, 0-6 Units, SubCUTAneous, TID WC And insulin lispro, 0-6 Units, SubCUTAneous, Nightly lisinopril, 20 mg, Oral, Daily [Held by provider] metFORMIN, 1,000 mg, Oral, BID WC mirtazapine, 15 mg, Oral, Nightly OLANZapine, 2.5 mg, Oral, Nightly pantoprazole, 40 mg, Oral, qAM AC prednisoLONE acetate, 1 drop, Both Eyes, Daily sertraline, 200 mg, Oral, Daily timolol, 1 drop, Both Eyes, Daily Assessment DATA: CT ABDOMEN AND PELVIS WITHOUT IV CONTRAST CLINICAL INDICATION: Left-sided abdominal pain TECHNIQUE: Axial CT images through the through the abdomen and pelvis with 3 mm reconstruction without intravenous intravenous contrast media. Enteric contrast was not administered. Coronal and sagittal reconstructions included. Dose reduction was employed with automated exposure control. COMPARISON: Abdominal radiographs 02/22/2023 FINDINGS: Examination is somewhat limited in evaluation of solid organs and vascular structures due to the lack of intravenous contrast. Additional limitations: Mild patient motion artifact and streak artifact Lung base: Bibasilar patchy opacities. Atherosclerosis. Liver: Appears fairly homogeneous on this unenhanced examination. (more content not included)... [facility] 02-25-2023 Note Have spoken to sara conrad's spouse throughout today. Referrals have been made including to [facility] per his request. This worker spoke to admissions will have an answer by a.m. [facility] 02-25-2023 Note Spoke to patient's s jaclyn Gallardo he is now interested in a referral to [facility] this worker followed up with a phone call to admissions will have answer if patient can be excepted by later this afternoon or tomorrow morning. [facility] 02-25-2023 Note PSYCHIATRIC EVALUATI ON/PROGRESS NOTE CC:depression, confusion HPI/INTERVAL Hx: Patient was examined, chart reviewed, case discussed with staff/IDT. Treatment plan reviewed. Patient was admitted due to []psychosis [x]depression, [x]anxiety, []PTSD, []bipolar, []chemical dependency, [x]SI, []homicidal ideation. Behavior sxs have been []absent, controlled, or of [x]mild, []moderate severity and have been present []intermittently [x]continuously for [x]days, []weeks, []months, []years. It [x]has []not responded to redirection, change in milieu (interventions and modifying factors). No other/new behavioral problems reported. Per patient and family patient has been increasingly confused over the last 4 weeks. Wandering around at night, refusing to take most of her medications. Sent here on the advice of her psychiatrist. Patient currently AxOx4. Also per family patient has made vague statements indicating suicidal thoughts. Patient son states he asked her what she wanted for [place] and patient stated, I wont be here for [place]. Patient denying SI/HI to me at this time. Karri Piedra is a 82 y.o. female who presents to the emergency department presents with family recommended to come to the ED by their psychiatrist for evaluation of intermittent confusion, cognitive decline, depression and suicidal ideations. Per family this has been going on for about a month, she has been on Zoloft, Remeron, various mental health medications without much improvement in her depression and more recently she has been refusing to take any of her medications thinking they are actually causing worsening of her depression and cognition. She has made passively suicidal comments but has no suicidal plans or attempts. Family states she was investigated for UTI at [facility] recently for these symptoms and it was unremarkable. She denies any areas of pain, any change in bowel or bladder habits, any fever, chills, sick contacts. There is no focal numbness weakness tingling, slurred speech, falls or trauma. Family is concerned she may need Jesi psych evaluation and placement evaluation as well. Pt is reported to be []stable [x]Symptomatic but improved psychiatrically on current medication/therapy/milieu regimen. Patient offered no specific complaints, feels better, denies SI. believes pt is better overall. Referred to several facilities in [place], family declines one that accepted pt, will need to d/w [facility] to either expand search or pt will return home. I left message for both son and today , also yesterday PTOT [facility] No side effects reported. Short term goal-reduction in symptoms; long term care social worker goal -improved functioning, reduction in polypharmacy. TCT her psychiatrist dr Woods, updated, discussed plan and hx. She has not been compliant with her medications recently. Had to return from [place] trip earlier bd decompensation. Was confused an disoriented on arrival. Due to the above, patient was deemed to be at risk to self or others and was involuntarily committed to the psychiatric unit. PRN medication administered [] Severity [x]mild []moderate []severe Duration []intermittent [x]continuous Timing []am []pm [x]all day Modifying factors []none [x]pain Associated sxs [x]anxiety []see below Context [x]stress []specific Mood []stable []labile []dysphoric [x]anxious []irritable Anxiety [x]stable []elevated Sleep [x]good []disrupted []unchanged Appetite []good [x]low Energy []good [x]low []elevated Concentration []good [x]impaired []improving Weight change [x]None []mild Hallucinations []Yes [x]no Delusions [x]Yes []no Paranoia []Yes [x]no Alcohol and drug use []Yes [x]no Risk to self and others []Low []Moderate []High Suicidality []Yes [x]No ADL []Independent [x]Dependent 1-2 assist IADL []Independent [x]dependent Side effects none Short term goal-reduction in symptoms; mcc goal -improved functioning, reduction in polypharmacy. Patient []has [x]has no prior psychiatric hospitalizations. Patient has previously been diagnosed with [x]depression []bipolar, []dementia [x]anxiety []insomnia []behavioral disturbances []schizophrenia []psychosis []mood disorder []MRDD. Condition: improving Prognosis: fair Level of care/functionality: cont to need inpt level of care Barriers to discharge: cont psychiatric symptoms, placement Patient continues to need, on a daily basis, active treatment furnished directly by or requiring the supervision of inpatient psychiatric personnel [x]1 or more chronic illnesses with exacerbation, 2 or more stable chronic illnesses, or 1 new problem/acute illness or injury []1 or more chronic illnesses with severe exacerbation, progression or side effects of treatment; or 1 acute or chronic illness or injury that poses a threat to life or bodily function []Dx or tx significantly limited by social determinants of health []t (more content not included)... [facility] 02-25-2023 Note Hospitalist Progress Note 02/25/[phone]: [facility] nm for patient care issues. [phone]: Please [facility] Consulting Hospitalist for any issues. Subjective: Admit Date: 02/18/2023 PCP: No primary care provider on file. Room#: S4-113/S4-113 A Brief Hospital course: Karri is a 82 y.o. female pmhx below who presents to the hospital with increased confusion and suicidal thoughts. The patient has stopped taking her medications and per the patient states that she has not taken her medications for several weeks. She denies any chest pain or shortness of breath denies any acute pain. The patient is depressed with thoughts of suicidal ideation. The patient has a history of tardive dyskinesia she has not taken her medications and therefore her tardive dyskinesia has increased making it difficult for her to eat and swallow foods. We are seeing in consultation for medical management Interval History: No acute changes overnight. Patient continues to report LLQ pain and had a small diarrhea episode last night per patient. She reports her appetite if fair and doesn't like the puree consistency of her meals. She denies any N/V. Otherwise, she has no new medical complaints. She denies any sob, cp, palpitations, urinary sx, fever or chills. Adult diet Dysphagia - Pureed; High Fiber 24HR INTAKE/OUTPUT: No intake or output data in the 24 hours ending 02/25/23 0834 Past Medical History: Past Medical History: Diagnosis Date Aphasia 02/19/2023 Chronic insomnia 02/19/2023 Confusion 02/19/2023 Depression Diabetes mellitus (HCC) Dysphagia 02/19/2023 Dysphagia GERD (gastroesophageal reflux disease) HLD (hyperlipidemia) Hypertension Tardive dyskinesia 02/19/2023 Tardive dyskinesia LABS: CBC: No results for input(s): WBC, RBC, HGB, HCT, MCV, RDW, PLT in the last 72 hours. BMP: Recent Labs 02/22/231 NA 134* K 4.0 CL 101 CO2 25 BUN 11 CREATININE 0.44* GLUCOSE 185* CALCIUM 9.4 ANIONGAP 8 LIVER PROFILE: Recent Labs 02/22/231 AST 41 ALT 39* BILITOT 0.5 ALKPHOS 78 PROT 6.9 PT/INR: No results for input(s): PROTIME, INR in the last 72 hours. CARDIAC ENZYMES: No results for input(s): TROPONINI in the last 72 hours. Procalcitonin: No results found for: PROCAL COVID-19 PCR: No results for input(s): COVID19 in the last 72 hours. Objective: Vitals: BP 135/69 Pulse 102 Temp 37.9 ?C (100.3 ?F) (Temporal) Resp 18 Ht 5' 4 (1.626 m) Comment: per pt. Wt 136 lb (61.7 kg) SpO2 91% BMI 23.34 kg/m? Pulse Ox: SpO2 Av % Min: 91 % Max: 99 % Physical Exam Constitutional: Appearance: resting in bed ill appearing NAD HENT: Head: Normocephalic and atraumatic. Cardiovascular: Rate and Rhythm: Normal rate and regular rhythm. Heart sounds: Normal heart sounds. Pulmonary: Effort: Pulmonary effort is normal. Breath sounds: Normal breath sounds and air entry. Abdominal: General: Abdomen is flat. Bowel sounds are normal. Palpations: Abdomen is soft. Tenderness: There is no abdominal tenderness. Musculoskeletal: Cervical back: Full passive range of motion without pain, normal range of motion and neck supple. Psychiatric: Attention and Perception: Attention normal. Mood and Affect: Mood is depressed. Speech: Speech is delayed. Behavior: Behavior is cooperative. Medications: aspirin, 81 mg, Oral, Daily atorvastatin, 40 mg, Oral, Daily ciprofloxacin, 500 mg, Oral, 2 times per day deutetrabenazine, 9 mg, Oral, BID hydroCHLOROthiazide, 12.5 mg, Oral, Daily influenza, 0.5 mL, IntraMUSCular, Once insulin glargine, 18 Units, SubCUTAneous, Nightly [Held by provider] insulin lispro, 0-6 Units, SubCUTAneous, TID WC And [Held by provider] insulin lispro, 0-6 Units, SubCUTAneous, Nightly lisinopril, 20 mg, Oral, Daily metFORMIN, 1,000 mg, Oral, BID WC metroNIDAZOLE, 500 mg, Oral, q8h mirtazapine, 15 mg, Oral, Nightly OLANZapine, 2.5 mg, Oral, Nightly pantoprazole, 40 mg, Oral, qAM AC prednisoLONE acetate, 1 drop, Both Eyes, Daily sertraline, 200 mg, Oral, Daily timolol, 1 drop, Both Eyes, Daily Assessment DATA: CT ABDOMEN AND PELVIS WITHOUT IV CONTRAST CLINICAL INDICATION: Left-sided abdominal pain TECHNIQUE: Axial CT images through the through the abdomen and pelvis with 3 mm reconstruction without intravenous intravenous contrast media. Enteric contrast was not administered. Coronal and sagittal reconstructions included. Dose reduction was employed with automated exposure control. COMPARISON: Abdominal radiographs 02/22/2023 FINDINGS: Examination is somewhat limited in evaluation of solid organs and vascular structures due to the lack of intravenous contrast. Additional limitations: Mild patient motion artifact and streak artifact Lung base: Bibasilar patchy opacities. Atherosclerosis. Liver: Appears fairly homogeneous on this unenhanced examination. Gallb (more content not included)... [facility] 2023 Note PSYCHIATRIC EVALUATI ON/PROGRESS NOTE CC:depression, confusion HPI/INTERVAL Hx: Patient was examined, chart reviewed, case discussed with staff/IDT. Treatment plan reviewed. Patient was admitted due to []psychosis [x]depression, [x]anxiety, []PTSD, []bipolar, []chemical dependency, [x]SI, []homicidal ideation. Behavior sxs have been []absent, controlled, or of []mild, [x]moderate severity and have been present []intermittently [x]continuously for []days, [x]weeks, [x]months, []years. It []has [x]not responded to redirection, change in milieu (interventions and modifying factors). No other/new behavioral problems reported. Per patient and family patient has been increasingly confused over the last 4 weeks. Wandering around at night, refusing to take most of her medications. Sent here on the advice of her psychiatrist. Patient currently AxOx4. Also per family patient has made vague statements indicating suicidal thoughts. Patient son states he asked her what she wanted for [place] and patient stated, I wont be here for [place]. Patient denying SI/HI to me at this time. Karri Piedra is a 82 y.o. female who presents to the emergency department presents with family recommended to come to the ED by their psychiatrist for evaluation of intermittent confusion, cognitive decline, depression and suicidal ideations. Per family this has been going on for about a month, she has been on Zoloft, Remeron, various mental health medications without much improvement in her depression and more recently she has been refusing to take any of her medications thinking they are actually causing worsening of her depression and cognition. She has made passively suicidal comments but has no suicidal plans or attempts. Family states she was investigated for UTI at [facility] recently for these symptoms and it was unremarkable. She denies any areas of pain, any change in bowel or bladder habits, any fever, chills, sick contacts. There is no focal numbness weakness tingling, slurred speech, falls or trauma. Family is concerned she may need Jesi psych evaluation and placement evaluation as well. Pt is reported to be []stable [x]Symptomatic but improved psychiatrically on current medication/therapy/milieu regimen. Patient offered no specific complaints, slept better, less anxious, believes she is much improved . PTOT [facility] No side effects reported. Short term goal-reduction in symptoms; long term care social worker goal -improved functioning, reduction in polypharmacy. TCT her psychiatrist dr Woods, updated, discussed plan and hx. She has not been compliant with her medications recently. Had to return from [place] trip earlier bd decompensation. Was confused an disoriented on arrival. Due to the above, patient was deemed to be at risk to self or others and was involuntarily committed to the psychiatric unit. PRN medication administered [] Severity []mild [x]moderate []severe Duration []intermittent [x]continuous Timing []am []pm [x]all day Modifying factors []none [x]pain Associated sxs [x]anxiety []see below Context [x]stress []specific Mood []stable []labile [x]dysphoric [x]anxious []irritable Anxiety [x]stable []elevated Sleep [x]good []disrupted []unchanged Appetite []good [x]low Energy []good [x]low []elevated Concentration []good [x]impaired []improving Weight change [x]None []mild Hallucinations []Yes [x]no Delusions [x]Yes []no Paranoia [x]Yes []no Alcohol and drug use []Yes [x]no Risk to self and others []Low []Moderate []High Suicidality []Yes [x]No ADL [x]Independent []dependent IADL []Independent [x]dependent Side effects none Short term goal-reduction in symptoms; [facility] goal -improved functioning, reduction in polypharmacy. Patient []has [x]has no prior psychiatric hospitalizations. Patient has previously been diagnosed with [x]depression []bipolar, []dementia [x]anxiety []insomnia []behavioral disturbances []schizophrenia []psychosis []mood disorder []MRDD. Condition: improving Prognosis: fair Level of care/functionality: cont to need inpt level of care Barriers to discharge: cont psychiatric symptoms, placement Patient continues to need, on a daily basis, active treatment furnished directly by or requiring the supervision of inpatient psychiatric personnel [x]1 or more chronic illnesses with exacerbation, 2 or more stable chronic illnesses, or 1 new problem/acute illness or injury []1 or more chronic illnesses with severe exacerbation, progression or side effects of treatment; or 1 acute or chronic illness or injury that poses a threat to life or bodily function []Dx or tx significantly limited by social determinants of health []three or more tests ordered, tests reviewed outside of psychiatry, or review notes from outside of psychiatry; with an independent interpretation of tests or discussion of management or test interpretation with a provider outside (more content not included)... [facility] 2023 Note Hospitalist Progress Note 2023 [phone]: [facility] nm for patient care issues. [phone]: Please [facility] Consulting Hospitalist for any issues. Subjective: Admit Date: 02/18/2023 PCP: No primary care provider on file. Room#: S4-113/S4-113 A Brief Hospital course: Karri is a 82 y.o. female pmhx below who presents to the hospital with increased confusion and suicidal thoughts. The patient has stopped taking her medications and per the patient states that she has not taken her medications for several weeks. She denies any chest pain or shortness of breath denies any acute pain. The patient is depressed with thoughts of suicidal ideation. The patient has a history of tardive dyskinesia she has not taken her medications and therefore her tardive dyskinesia has increased making it difficult for her to eat and swallow foods. We are seeing in consultation for medical management Interval History: No acute changes overnight. Pateint was seen and evaluated at bedside this morning. Patient lying in bed awake in no acute physical distress. I discussed KUB results with the patient. Patient is slow to respond but is cooperative with my assessment. She denies any recent diarrhea episodes, but continues to endorse LLQ pain on palpation and with movement. She is reporting fair appetite and is tolerating diet and meds. She denies any sob, cp, palpitations, urinary sx, nausea, vomiting, fever or chills. GI pannel and C-diff to be collected if diarrhea persists. BP fluctuating but stable BG 132 this am- improving Adult diet Dysphagia - Pureed 24HR INTAKE/OUTPUT: No intake or output data in the 24 hours ending 02/24/23818 Past Medical History: Past Medical History: Diagnosis Date Aphasia 02/19/2023 Chronic insomnia 02/19/2023 Confusion 02/19/2023 Depression Diabetes mellitus (HCC) Dysphagia 02/19/2023 Dysphagia GERD (gastroesophageal reflux disease) HLD (hyperlipidemia) Hypertension Tardive dyskinesia 02/19/2023 Tardive dyskinesia LABS: CBC: No results for input(s): WBC, RBC, HGB, HCT, MCV, RDW, PLT in the last 72 hours. BMP: Recent Labs 02/22/232230 NA 134* K 4.0 CL 101 CO2 25 BUN 11 CREATININE 0.44* GLUCOSE 185* CALCIUM 9.4 ANIONGAP 8 LIVER PROFILE: Recent Labs 02/22/232230 AST 41 ALT 39* BILITOT 0.5 ALKPHOS 78 PROT 6.9 PT/INR: No results for input(s): PROTIME, INR in the last 72 hours. CARDIAC ENZYMES: No results for input(s): TROPONINI in the last 72 hours. Procalcitonin: No results found for: PROCAL COVID-19 PCR: No results for input(s): COVID19 in the last 72 hours. Objective: Vitals: BP (!) 150/63 (BP Location: Left arm, Patient Position: Lying) Pulse 90 Temp 36.7 ?C (98.1 ?F) (Temporal) Resp 16 Ht 5' 4 (1.626 m) Comment: per pt. Wt 136 lb (61.7 kg) SpO2 92% BMI 23.34 kg/m? Pulse Ox: SpO2 Av.3 % Min: 92 % Max: 96 % Physical Exam Constitutional: Appearance: resting in bed ill appearing NAD HENT: Head: Normocephalic and atraumatic. Cardiovascular: Rate and Rhythm: Normal rate and regular rhythm. Heart sounds: Normal heart sounds. Pulmonary: Effort: Pulmonary effort is normal. Breath sounds: Normal breath sounds and air entry. Abdominal: General: Abdomen is flat. Bowel sounds are normal. Palpations: Abdomen is soft. Tenderness: There is no abdominal tenderness. Musculoskeletal: Cervical back: Full passive range of motion without pain, normal range of motion and neck supple. Psychiatric: Attention and Perception: Attention normal. Mood and Affect: Mood is depressed. Speech: Speech is delayed. Behavior: Behavior is cooperative. Medications: aspirin, 81 mg, Oral, Daily atorvastatin, 40 mg, Oral, Daily deutetrabenazine, 9 mg, Oral, BID hydroCHLOROthiazide, 12.5 mg, Oral, Daily influenza, 0.5 mL, IntraMUSCular, Once insulin glargine, 18 Units, SubCUTAneous, Nightly [Held by provider] insulin lispro, 0-6 Units, SubCUTAneous, TID WC And [Held by provider] insulin lispro, 0-6 Units, SubCUTAneous, Nightly lisinopril, 20 mg, Oral, Daily metFORMIN, 1,000 mg, Oral, BID WC mirtazapine, 15 mg, Oral, Nightly OLANZapine, 2.5 mg, Oral, Nightly pantoprazole, 40 mg, Oral, qAM AC prednisoLONE acetate, 1 drop, Both Eyes, Daily sertraline, 200 mg, Oral, Daily timolol, 1 drop, Both Eyes, Daily Assessment DATA: Acute, acute on chronic, unstable/uncontrolled chronic problems/diagnoses: Depression Suicidal ideation Stable chronic problems affecting care, new non-acute diagnoses: Hyperlipidemia Diabetes with insulin requirement Hypertension Tardive dyskinesia Dysphagia GERD Medical Decision Making As a result of the above findings & factors, the following additional mgmt was pursued: - Psychiatric care per primary service - Resume home meds, tardive dyskinesia med brought in and restarted - on metformin to 1000 mg bi (more content not included)... [facility] 02-23-2023 Note Department of Psychi atry Attending Progress Note CHIEF COMPLAINT: Depression SUBJECTIVE: The patient is seen in follow-up for depression and confusion. The patient was seen and examined. The chart was reviewed. The patient was discussed with staff. Per nursing, the patient has been withdrawn and complaining of abdominal pain. She is compliant with medications. On approach, the patient complains of side pain. She is confused and doesn't recall speaking with me yesterday. She endorses depressed mood and anhedonia. No suicidal or homicidal ideation was voiced or detected. She denies difficulty with sleep. Appetite is decreased. She has decreased energy and concentration. No paranoia or delusions. She does not appear internally stimulated. She is compliant with medications and is tolerating them well. OBJECTIVE Physical Visit Vitals BP 129/70 Pulse 97 Temp 37.1 ?C (98.8 ?F) (Temporal) Resp 16 Mental Status Examination: The patient appears her stated age. She is casually groomed wearing personal attire. She is cooperative and makes fair eye contact. She has decreased psychomotor activity. No involuntary movements. She was not seen ambulating. Speech is low volume and slow. Mood is depressed and affect is mood congruent. Thought process is slowed and confused. Thought content: No suicidal or homicidal ideation. No paranoia. Patient does not appear internally stimulated. Memory, attention, and concentration are impaired. Insight and judgment are limited. Data Labs reviewed Medications Current Facility-Administered Medications: acetaminophen (Tylenol) tablet 650 mg, 650 mg, Oral, q6h PRN, 650 mg at 02/23/23 1007 OR acetaminophen (Tylenol) suppository 650 mg, 650 mg, Rectal, q6h PRN, Yumiko Gasca MD aspirin EC tablet 81 mg, 81 mg, Oral, Daily, Arjun Cornell MD, 81 mg at 02/23/23 0823 atorvastatin (Lipitor) tablet 40 mg, 40 mg, Oral, Daily, Arjun Cornell MD, 40 mg at 02/22/23 210 deutetrabenazine (Austedo) tablet 9 mg (patient's own med), 9 mg, Oral, BID, Yumiko Gasca MD, 9 mg at 02/23/23 0824 dextrose 5 % infusion, 100 mL/hr, IntraVENous, PRN, Arjun Cornell MD dextrose 50 % solution 12.5 g, 12.5 g, IntraVENous, PRN, Arjun Cornell MD glucagon (human recombinant) injection 1 mg, 1 mg, IntraMUSCular, PRN, Arjun Cornell MD glucose oral gel 15 g, 15 g, Oral, PRN, Arjun Cornell MD hydroCHLOROthiazide (HYDRODiuril) tablet 12.5 mg, 12.5 mg, Oral, Daily, Arjun Cornell MD, 12.5 mg at 02/23/23 0822 Influenza Vac A&B SA Adj quadrivalent (Fluad) vaccine 0.5 mL, 0.5 mL, IntraMUSCular, Once, Yumiko Gasca MD insulin glargine (Lantus) injection 18 Units, 18 Units, SubCUTAneous, Nightly, Arjun Cornell MD, 18 Units at 02/22/232100 [Held by provider] Insulin Lispro (Humalog) injection 0-6 Units, 0-6 Units, SubCUTAneous, TID WC, 1 Units at 02/20/23 0835 AND [Held by provider] Insulin Lispro (Humalog) injection 0-6 Units, 0-6 Units, SubCUTAneous, Nightly, Harpreet Dubois APRN - DISTANCE EDUCATION COORDINATOR lisinopril tablet 20 mg, 20 mg, Oral, Daily, Arjun Cornell MD, 20 mg at 02/23/23 0839 metFORMIN (Glucophage) tablet 1,000 mg, 1,000 mg, Oral, BID WC, Harpreet Dubois APRN - DISTANCE EDUCATION COORDINATOR, 1,000 mg at 02/23/23 1725 mirtazapine (Remeron) tablet 15 mg, 15 mg, Oral, Nightly, Yumiko Gasca MD, 15 mg at 02/22/232100 OLANZapine (ZyPREXA) tablet 2.5 mg, 2.5 mg, Oral, q6h PRN, 2.5 mg at 02/23/23 0200 OR OLANZapine (ZyPREXA) 5 mg in sterile water 1 mL injection, 5 mg, IntraMUSCular, q6h PRN, Yumiko Gasca MD OLANZapine (ZyPREXA) tablet 2.5 mg, 2.5 mg, Oral, Nightly, Yumiko Gasca MD, 2.5 mg at 02/22/232100 pantoprazole (ProtoNix) EC tablet 40 mg, 40 mg, Oral, qAM AC, Arjun Cornell MD, 40 mg at 02/21/23 0629 polyethylene glycol (PEG) 3350 (Miralax) packet 17 g, 17 g, Oral, Daily PRN, Yumiko Gasca MD, 17 g at 02/23/23 1020 prednisoLONE acetate (Pred-Forte) 1 % ophthalmic suspension 1 drop, 1 drop, Both Eyes, Daily, Arjun Cornell MD, 1 drop at 02/23/23 0826 sertraline (Zoloft) tablet 200 mg, 200 mg, Oral, Daily, Yumiko Gasca MD, 200 mg at 02/23/23 0822 timolol (Timoptic) 0.5 % ophthalmic solution 1 drop, 1 drop, Both Eyes, Daily, Arjun Cornell MD, 1 drop at 02/23/23 0821 traZODone (Desyrel) tablet 50 mg, 50 mg, Oral, Nightly PRN, Yumiko Gasca MD, 50 mg at 02/22/23 210 ASSESSMENT: Major Depressive Disorder, recurrent, severe, with psychotic features Memory Loss PLAN: At this time, inpatient psychiatric care remains medically necessary in order to treat the above diagnoses and symptoms. The patient will benefit from continued inpatient psychiatric monitoring, evaluation, and treatment. I will continue the current medication regimen which includes Remeron 15 mg nightly, Zyprexa 2.5 mg nightly, and Zoloft 200 mg daily. The patient needs time to respond to these medications. Will continue to follow recommendations per medical staff specialist. Will discharge the patient to the appropriate level of care when medically (more content not included)... [facility] 02-23-2023 Note Hospitalist Progress Note 02/23/2023 [phone]: [facility] nm for patient care issues. [phone]: Please [facility] Consulting Hospitalist for any issues. Subjective: Admit Date: 02/18/2023 PCP: No primary care provider on file. Room#: S4-113/S4-113 A Brief Hospital course: Karri is a 82 y.o. female pmhx below who presents to the hospital with increased confusion and suicidal thoughts. The patient has stopped taking her medications and per the patient states that she has not taken her medications for several weeks. She denies any chest pain or shortness of breath denies any acute pain. The patient is depressed with thoughts of suicidal ideation. The patient has a history of tardive dyskinesia she has not taken her medications and therefore her tardive dyskinesia has increased making it difficult for her to eat and swallow foods. We are seeing in consultation for medical management Interval History: Farhana was seen and assessed in her room resting in bed NAD C/o lower ABD pain associated with x4 diarrhea last night was ordered KUB showing IMPRESSION: Moderate stool in the colon but no dilated bowel loops are seen; correlate for constipation. If there is concern for an abdominopelvic process not seen radiographically, consider CT or ultrasound depending on the nature of the symptoms. Right upper quadrant calcifications are present, possibly gallstones. Consider ultrasound for further evaluation. CMP no significant finding other than mild hyponatremia at 134 and ALT of 39. UA same as previous, few bacteria GI PCR and C-diff PCR pending Adult diet Dysphagia - Pureed 24HR INTAKE/OUTPUT: No intake or output data in the 24 hours ending 02/23/23 08 Past Medical History: Past Medical History: Diagnosis Date Aphasia 02/19/2023 Chronic insomnia 02/19/2023 Confusion 02/19/2023 Depression Diabetes mellitus (HCC) Dysphagia 02/19/2023 Dysphagia GERD (gastroesophageal reflux disease) HLD (hyperlipidemia) Hypertension Tardive dyskinesia 02/19/2023 Tardive dyskinesia LABS: CBC: No results for input(s): WBC, RBC, HGB, HCT, MCV, RDW, PLT in the last 72 hours. BMP: Recent Labs 02/22/23 2231 NA 134* K 4.0 CL 101 CO2 25 BUN 11 CREATININE 0.44* GLUCOSE 185* CALCIUM 9.4 ANIONGAP 8 LIVER PROFILE: Recent Labs 02/22/23 2231 AST 41 ALT 39* BILITOT 0.5 ALKPHOS 78 PROT 6.9 PT/INR: No results for input(s): PROTIME, INR in the last 72 hours. CARDIAC ENZYMES: No results for input(s): TROPONINI in the last 72 hours. Procalcitonin: No results found for: PROCAL COVID-19 PCR: No results for input(s): COVID19 in the last 72 hours. Objective: Vitals: BP (!) 149/67 Pulse 98 Temp 37.3 ?C (99.1 ?F) (Temporal) Resp 18 Ht 5' 4 (1.626 m) Comment: per pt. Wt 136 lb (61.7 kg) SpO2 95% BMI 23.34 kg/m? Pulse Ox: SpO2 Av.5 % Min: 95 % Max: 98 % Physical Exam Constitutional: Appearance: resting in bed ill appearing NAD HENT: Head: Normocephalic and atraumatic. Cardiovascular: Rate and Rhythm: Normal rate and regular rhythm. Heart sounds: Normal heart sounds. Pulmonary: Effort: Pulmonary effort is normal. Breath sounds: Normal breath sounds and air entry. Abdominal: General: Abdomen is flat. Bowel sounds are normal. Palpations: Abdomen is soft. Tenderness: There is no abdominal tenderness. Musculoskeletal: Cervical back: Full passive range of motion without pain, normal range of motion and neck supple. Psychiatric: Attention and Perception: Attention normal. Mood and Affect: Mood is depressed. Speech: Speech is delayed. Behavior: Behavior is cooperative. Medications: aspirin, 81 mg, Oral, Daily atorvastatin, 40 mg, Oral, Daily deutetrabenazine, 9 mg, Oral, BID hydroCHLOROthiazide, 12.5 mg, Oral, Daily influenza, 0.5 mL, IntraMUSCular, Once insulin glargine, 18 Units, SubCUTAneous, Nightly [Held by provider] insulin lispro, 0-6 Units, SubCUTAneous, TID WC And [Held by provider] insulin lispro, 0-6 Units, SubCUTAneous, Nightly lisinopril, 20 mg, Oral, Daily metFORMIN, 1,000 mg, Oral, BID WC mirtazapine, 15 mg, Oral, Nightly OLANZapine, 2.5 mg, Oral, Nightly pantoprazole, 40 mg, Oral, qAM AC prednisoLONE acetate, 1 drop, Both Eyes, Daily sertraline, 200 mg, Oral, Daily timolol, 1 drop, Both Eyes, Daily Assessment DATA: Acute, acute on chronic, unstable/uncontrolled chronic problems/diagnoses: Depression Suicidal ideation Stable chronic problems affecting care, new non-acute diagnoses: Hyperlipidemia Diabetes with insulin requirement Hypertension Tardive dyskinesia Dysphagia GERD Medical Decision Making As a result of the above findings & factors, the following additional mgmt was pursued: - Psychiatric care per primary service - Resume home meds, tardive dyskinesia med brought in and restarted - on metformin to 1000 mg bid and continue b (more content not included)... [facility] 02-22-2023 Note Denies si/hi. Admits to sad and lack of purpose. 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 Up with one assist, very. cautious with transfer from chair to bed and cautious. Sleeping at this time. [facility] 02-22-2023 Note Department of Psychi atry Attending Progress Note CHIEF COMPLAINT: Depression SUBJECTIVE: The patient is seen in follow-up for depression and confusion. The patient was seen and examined. The chart was reviewed. The patient was discussed with staff. Per nursing, the patient is sad and feels a lack of purpose. She was compliant with medications. On approach, the patient reports feeling a little less confused. 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 She reports depressed mood and anhedonia. No suicidal or homicidal ideation was voiced or detected. She denies difficulty with sleep and appetite. Notes decreased energy and concentration. No paranoia or delusions. She does not appear internally stimulated. She is compliant with medications and is tolerating them well. OBJECTIVE Physical Visit Vitals BP 137/84 (BP Location: Left arm, Patient Position: Lying) Pulse 86 Temp 36.3 ?C (97.4 ?F) (Temporal) Resp 18 Mental Status Examination: The patient appears her stated age. She is casually groomed wearing personal attire. She is cooperative and makes fair eye contact. She has decreased psychomotor activity. No involuntary movements. She was not seen ambulating. Speech is low volume and slow. Mood is depressed and affect is mood congruent. Thought process is somewhat confused. Thought content: No suicidal or homicidal ideation. No paranoia. Patient does not appear internally stimulated. Memory, attention, and concentration are somewhat impaired. Insight and judgment are limited. Data Labs reviewed Medications Current Facility-Administered Medications: acetaminophen (Tylenol) tablet 650 mg, 650 mg, Oral, q6h PRN, 650 mg at 02/22/232100 OR acetaminophen (Tylenol) suppository 650 mg, 650 mg, Rectal, q6h PRN, Yumiko Gasca MD aspirin EC tablet 81 mg, 81 mg, Oral, Daily, Arjun Cornell MD, 81 mg at 02/22/23 0841 atorvastatin (Lipitor) tablet 40 mg, 40 mg, Oral, Daily, Arjun Cornell MD, 40 mg at 02/22/232100 deutetrabenazine (Austedo) tablet 9 mg (patient's own med), 9 mg, Oral, BID, Yumiko Gasca MD, 9 mg at 02/22/232101 dextrose 5 % infusion, 100 mL/hr, IntraVENous, PRN, Arjun Cornell MD dextrose 50 % solution 12.5 g, 12.5 g, IntraVENous, PRN, Arjun Cornell MD glucagon (human recombinant) injection 1 mg, 1 mg, IntraMUSCular, PRN, Arjun Cornell MD glucose oral gel 15 g, 15 g, Oral, PRN, Arjun Cornell MD hydroCHLOROthiazide (HYDRODiuril) tablet 12.5 mg, 12.5 mg, Oral, Daily, Arjun Cornell MD, 12.5 mg at 02/22/23 0841 Influenza Vac A&B SA Adj quadrivalent (Fluad) vaccine 0.5 mL, 0.5 mL, IntraMUSCular, Once, Yumiko Gasca MD insulin glargine (Lantus) injection 18 Units, 18 Units, SubCUTAneous, Nightly, Arjun Cornell MD, 18 Units at 02/22/232100 [Held by provider] Insulin Lispro (Humalog) injection 0-6 Units, 0-6 Units, SubCUTAneous, TID WC, 1 Units at 02/20/23 0835 AND [Held by provider] Insulin Lispro (Humalog) injection 0-6 Units, 0-6 Units, SubCUTAneous, Nightly, Harpreet Dubosi APRN - NOEL lisinopril tablet 20 mg, 20 mg, Oral, Daily, Arjun Cornell MD, 20 mg at 02/22/23 08 metFORMIN (Glucophage) tablet 1,000 mg, 1,000 mg, Oral, BID WC, BREANNE Gonzalez CNP, 1,000 mg at 02/22/23 1716 mirtazapine (Remeron) tablet 15 mg, 15 mg, Oral, Nightly, Yumiko Gasca MD, 15 mg at 02/22/232100 OLANZapine (ZyPREXA) tablet 2.5 mg, 2.5 mg, Oral, q6h PRN OR OLANZapine (ZyPREXA) 5 mg in sterile water 1 mL injection, 5 mg, IntraMUSCular, q6h PRN, Yumiko Gasca MD OLANZapine (ZyPREXA) tablet 2.5 mg, 2.5 mg, Oral, Nightly, Yumiko Gasca MD, 2.5 mg at 02/22/232100 pantoprazole (ProtoNix) EC tablet 40 mg, 40 mg, Oral, qAM AC, Arjun Cornell MD, 40 mg at 02/21/23 0629 polyethylene glycol (PEG) 3350 (Miralax) packet 17 g, 17 g, Oral, Daily PRN, Yumiko Gasca MD prednisoLONE acetate (Pred-Forte) 1 % ophthalmic suspension 1 drop, 1 drop, Both Eyes, Daily, Arjun Cornell MD, 1 drop at 02/22/23 0841 sertraline (Zoloft) tablet 200 mg, 200 mg, Oral, Daily, Yumiko Gasca MD, 200 mg at 02/22/23 0841 timolol (Timoptic) 0.5 % ophthalmic solution 1 drop, 1 drop, Both Eyes, Daily, Arjun Cornell MD, 1 drop at 02/22/23 0842 traZODone (Desyrel) tablet 50 mg, 50 mg, Oral, Nightly PRN, Yumiko Gasca MD, 50 mg at 02/22/23 210 ASSESSMENT: Major Depressive Disorder, recurrent, severe, with psychotic features Memory Loss PLAN: At this time, inpatient psychiatric care remains medically necessary in order to treat the above diagnoses and symptoms. The patient will benefit from continued inpatient psychiatric monitoring, evaluation, and treatment. I will continue the current medication regimen which includes Remeron 15 mg nightly, Zyprexa 2.5 mg nightly, and Zoloft 200 mg daily. The patient needs additional time to respond to this medication regimen. Will follow recommendations per medical staff specialist. Will discharge the patient to the appropriate level of care when medically and (more content not included)... [facility] 02-22-2023 Note Hospitalist Progress Note 02/22/2023 [phone]: [facility] nm for patient care issues. [phone]: Please [facility] Consulting Hospitalist for any issues. Subjective: Admit Date: 02/18/2023 PCP: No primary care provider on file. Room#: S4-113/S4-113 A Brief Hospital course: Karri is a 82 y.o. female pmhx below who presents to the hospital with increased confusion and suicidal thoughts. The patient has stopped taking her medications and per the patient states that she has not taken her medications for several weeks. She denies any chest pain or shortness of breath denies any acute pain. The patient is depressed with thoughts of suicidal ideation. The patient has a history of tardive dyskinesia she has not taken her medications and therefore her tardive dyskinesia has increased making it difficult for her to eat and swallow foods. We are seeing in consultation for medical management Interval History: Pt was seen and evaluated in the dining room.eating her breakfast in no acute physical distress. She is calm and cooperative with my assessment. She has no new medical complaints. She is scheduled for a cookie swallow today 02/22. Pt denies difficulty swallowing. No changes to medical management Adult diet Dysphagia - Pureed 24HR INTAKE/OUTPUT: No intake or output data in the 24 hours ending 02/22/23 0824 Past Medical History: Past Medical History: Diagnosis Date Aphasia 02/19/2023 Chronic insomnia 02/19/2023 Confusion 02/19/2023 Depression Diabetes mellitus (HCC) Dysphagia 02/19/2023 Dysphagia GERD (gastroesophageal reflux disease) HLD (hyperlipidemia) Hypertension Tardive dyskinesia 02/19/2023 Tardive dyskinesia LABS: CBC: No results for input(s): WBC, RBC, HGB, HCT, MCV, RDW, PLT in the last 72 hours. BMP: No results for input(s): NA, K, CL, CO2, BUN, CREATININE, GLUCOSE, CALCIUM, ANIONGAP in the last 72 hours. LIVER PROFILE: No results for input(s): AST, ALT, BILITOT, ALKPHOS, PROT in the last 72 hours. No lab exists for component: LABALBU PT/INR: No results for input(s): PROTIME, INR in the last 72 hours. CARDIAC ENZYMES: No results for input(s): TROPONINI in the last 72 hours. Procalcitonin: No results found for: PROCAL COVID-19 PCR: No results for input(s): COVID19 in the last 72 hours. Objective: Vitals: BP (!) 159/73 (BP Location: Left arm, Patient Position: Lying) Pulse 86 Temp 37.3 ?C (99.1 ?F) (Temporal) Resp 16 Ht 5' 4 (1.626 m) Comment: per pt. Wt 136 lb (61.7 kg) SpO2 96% BMI 23.34 kg/m? Pulse Ox: SpO2 Av.5 % Min: 93 % Max: 96 % Physical Exam Cardiovascular: Rate and Rhythm: Normal rate and regular rhythm. Pulmonary: Breath sounds: Normal breath sounds. Abdominal: Palpations: Abdomen is soft. Skin: General: Skin is warm and dry. Neurological: General: No focal deficit present. Mental Status: She is alert and oriented to person, place, and time. Psychiatric: Attention and Perception: Attention normal. Mood and Affect: Mood is depressed. Speech: Speech is delayed. Behavior: Behavior is cooperative. Medications: aspirin, 81 mg, Oral, Daily atorvastatin, 40 mg, Oral, Daily deutetrabenazine, 9 mg, Oral, BID hydroCHLOROthiazide, 12.5 mg, Oral, Daily influenza, 0.5 mL, IntraMUSCular, Once insulin glargine, 18 Units, SubCUTAneous, Nightly [Held by provider] insulin lispro, 0-6 Units, SubCUTAneous, TID WC And [Held by provider] insulin lispro, 0-6 Units, SubCUTAneous, Nightly lisinopril, 20 mg, Oral, Daily metFORMIN, 1,000 mg, Oral, BID WC mirtazapine, 15 mg, Oral, Nightly OLANZapine, 2.5 mg, Oral, Nightly pantoprazole, 40 mg, Oral, qAM AC prednisoLONE acetate, 1 drop, Both Eyes, Daily sertraline, 200 mg, Oral, Daily timolol, 1 drop, Both Eyes, Daily Assessment DATA: Acute, acute on chronic, unstable/uncontrolled chronic problems/diagnoses: Depression Suicidal ideation Stable chronic problems affecting care, new non-acute diagnoses: Hyperlipidemia Diabetes with insulin requirement Hypertension Tardive dyskinesia Dysphagia GERD Medical Decision Making As a result of the above findings & factors, the following additional mgmt was pursued: -Psychiatric care per primary service -Resume home meds, tardive dyskinesia med brought in and restarted -will increase metformin to 1000 mg bid and continue bedtime insulin -will add SSI if BS remain elevated -Change diet to easy chew -Monitor for worsening hypertension and titrate medication as needed - labs as indicated, replace lytes prn - PT/OT/SW - delirium precautions: increase activity and limit nighttime disturbances -DVT prophylaxis: [] Lovenox [] Heparin [] SCDs [x] Encourage ambulation [] Already on Anticoagulation IP CONSULT TO SOCIAL WORK IP CONSULT TO HOSPITALIST Full Code Anticipated Discharge -Per primary team Total time spent (more content not included)... [facility] 02-21-2023 Note PSYCHIATRIC EVALUATI ON/PROGRESS NOTE CC:depression, confusion HPI/INTERVAL Hx: Patient was examined, chart reviewed, case discussed with staff/IDT. Treatment plan reviewed. Patient was admitted due to []psychosis [x]depression, [x]anxiety, []PTSD, []bipolar, []chemical dependency, [x]SI, []homicidal ideation. Behavior sxs have been []absent, controlled, or of []mild, [x]moderate severity and have been present []intermittently [x]continuously for []days, [x]weeks, [x]months, []years. It []has [x]not responded to redirection, change in milieu (interventions and modifying factors). No other/new behavioral problems reported. Per patient and family patient has been increasingly confused over the last 4 weeks. Wandering around at night, refusing to take most of her medications. Sent here on the advice of her psychiatrist. Patient currently AxOx4. Also per family patient has made vague statements indicating suicidal thoughts. Patient son states he asked her what she wanted for [place] and patient stated, I wont be here for [place]. Patient denying SI/HI to me at this time. Karri Piedra is a 82 y.o. female who presents to the emergency department presents with family recommended to come to the ED by their psychiatrist for evaluation of intermittent confusion, cognitive decline, depression and suicidal ideations. Per family this has been going on for about a month, she has been on Zoloft, Remeron, various mental health medications without much improvement in her depression and more recently she has been refusing to take any of her medications thinking they are actually causing worsening of her depression and cognition. She has made passively suicidal comments but has no suicidal plans or attempts. Family states she was investigated for UTI at [facility] recently for these symptoms and it was unremarkable. She denies any areas of pain, any change in bowel or bladder habits, any fever, chills, sick contacts. There is no focal numbness weakness tingling, slurred speech, falls or trauma. Family is concerned she may need Jesi psych evaluation and placement evaluation as well. Pt is reported to be []stable [x]symptomatic psychiatrically on current medication/therapy/milieu regimen. Patient offered no specific complaints, restarted austedo, speech better this morning. Slept poorly, remains anxious and depressed, confused. Denies SI. PT and OT eval indicated need for SNF tx. No side effects reported. Short term goal-reduction in symptoms; mcc goal -improved functioning, reduction in polypharmacy. TCT her psychiatrist dr Woods, updated, discussed plan and hx. She has not been compliant with her medications recently. Had to return from [place] trip earlier bd decompensation. Was confused an disoriented on arrival. Due to the above, patient was deemed to be at risk to self or others and was involuntarily committed to the psychiatric unit. PRN medication administered [] Severity []mild []moderate [x]severe Duration []intermittent [x]continuous Timing []am []pm [x]all day Modifying factors []none [x]pain Associated sxs [x]anxiety []see below Context [x]stress []specific Mood []stable []labile [x]dysphoric [x]anxious []irritable Anxiety []stable [x]elevated Sleep []good [x]disrupted []unchanged Appetite []good [x]low Energy []good [x]low []elevated Concentration []good [x]impaired []improving Weight change [x]None []mild Hallucinations []Yes [x]no Delusions [x]Yes []no Paranoia [x]Yes []no Alcohol and drug use []Yes [x]no Risk to self and others []Low []Moderate []High Suicidality [x]Yes []No ADL [x]Independent []dependent IADL []Independent [x]dependent Side effects none Short term goal-reduction in symptoms; mcc goal -improved functioning, reduction in polypharmacy. Patient []has [x]has no prior psychiatric hospitalizations. Patient has previously been diagnosed with [x]depression []bipolar, []dementia [x]anxiety []insomnia []behavioral disturbances []schizophrenia []psychosis []mood disorder []MRDD. Condition: unchanged Prognosis: fair Level of care/functionality: cont to need inpt level of care Barriers to discharge: cont psychiatric symptoms Patient continues to need, on a daily basis, active treatment furnished directly by or requiring the supervision of inpatient psychiatric personnel []1 or more chronic illnesses with exacerbation, 2 or more stable chronic illnesses, or 1 new problem/acute illness or injury [x]1 or more chronic illnesses with severe exacerbation, progression or side effects of treatment; or 1 acute or chronic illness or injury that poses a threat to life or bodily function []Dx or tx significantly limited by social determinants of health []three or more tests ordered, tests reviewed outside of psychiatry, or review notes from outside of psychiatry; with an independent interpretation of tests or discussion of manage (more content not included)... [facility] 02-21-2023 Note Hospitalist Progress Note 02/21/2023 [id number]: [facility] Chat me for patient care issues. [phone]: Please Epic Chat [facility] Consulting Hospitalist for any issues. Subjective: Admit Date: 02/18/2023 PCP: No primary care provider on file. Room#: S4-113/S4-113 A Brief Hospital course: Karri is a 82 y.o. female pmhx below who presents to the hospital with increased confusion and suicidal thoughts. The patient has stopped taking her medications and per the patient states that she has not taken her medications for several weeks. She denies any chest pain or shortness of breath denies any acute pain. The patient is depressed with thoughts of suicidal ideation. The patient has a history of tardive dyskinesia she has not taken her medications and therefore her tardive dyskinesia has increased making it difficult for her to eat and swallow foods. We are seeing in consultation for medical management Interval History: Pt seen in dining room. She is feeling better. Speech is slow and halting at times. Pt denies difficulty swallowing. She was restarted on her [place] for her tardive dyskinesia. I will change her diet to soft chew. Adult diet Easy to Chew 24HR INTAKE/OUTPUT: No intake or output data in the 24 hours ending 02/21/23 1307 Past Medical History: Past Medical History: Diagnosis Date Aphasia 02/19/2023 Chronic insomnia 02/19/2023 Confusion 02/19/2023 Depression Diabetes mellitus (HCC) Dysphagia 02/19/2023 Dysphagia GERD (gastroesophageal reflux disease) HLD (hyperlipidemia) Hypertension Tardive dyskinesia 02/19/2023 Tardive dyskinesia LABS: CBC: Recent Labs 02/18/231955 WBC 8.1 RBC 4.47 HGB 12.7 HCT 38.4 MCV 85.9 RDW 15.3* PLT 279 BMP: Recent Labs 02/18/231955 NA 137 K 4.0 CL 104 CO2 26 BUN 7 CREATININE 0.49* GLUCOSE 163* CALCIUM 9.9 ANIONGAP 7 LIVER PROFILE: Recent Labs 02/18/231955 AST 55* ALT 60* BILITOT 0.5 ALKPHOS 113 PROT 7.7 PT/INR: No results for input(s): PROTIME, INR in the last 72 hours. CARDIAC ENZYMES: No results for input(s): TROPONINI in the last 72 hours. Procalcitonin: No results found for: PROCAL COVID-19 PCR: No results for input(s): COVID19 in the last 72 hours. Objective: Vitals: BP (!) 142/72 Pulse 78 Temp 36.8 ?C (98.2 ?F) (Temporal) Resp 16 Ht 5' 4 (1.626 m) Comment: per pt. Wt 136 lb (61.7 kg) SpO2 97% BMI 23.34 kg/m? Pulse Ox: SpO2 Av % Min: 97 % Max: 99 % Physical Exam Cardiovascular: Rate and Rhythm: Normal rate and regular rhythm. Pulmonary: Breath sounds: Normal breath sounds. Abdominal: Palpations: Abdomen is soft. Skin: General: Skin is warm and dry. Neurological: General: No focal deficit present. Mental Status: She is alert and oriented to person, place, and time. Psychiatric: Attention and Perception: Attention normal. Mood and Affect: Mood is depressed. Speech: Speech is delayed. Behavior: Behavior is cooperative. Medications: aspirin, 81 mg, Oral, Daily atorvastatin, 40 mg, Oral, Daily deutetrabenazine, 9 mg, Oral, BID hydroCHLOROthiazide, 12.5 mg, Oral, Daily influenza, 0.5 mL, IntraMUSCular, Once insulin glargine, 18 Units, SubCUTAneous, Nightly insulin lispro, 0-6 Units, SubCUTAneous, TID WC And insulin lispro, 0-6 Units, SubCUTAneous, Nightly lisinopril, 20 mg, Oral, Daily metFORMIN, 500 mg, Oral, BID WC mirtazapine, 15 mg, Oral, Nightly OLANZapine, 2.5 mg, Oral, Nightly pantoprazole, 40 mg, Oral, qAM AC prednisoLONE acetate, 1 drop, Both Eyes, Daily sertraline, 200 mg, Oral, Daily timolol, 1 drop, Both Eyes, Daily Assessment DATA: Acute, acute on chronic, unstable/uncontrolled chronic problems/diagnoses: Depression Suicidal ideation Stable chronic problems affecting care, new non-acute diagnoses: Hyperlipidemia Diabetes with insulin requirement Hypertension Tardive dyskinesia Dysphagia GERD Medical Decision Making As a result of the above findings & factors, the following additional mgmt was pursued: -Psychiatric care per primary service -Resume home meds, tardive dyskinesia med brought in and restarted -will increase metformin to 1000 mg bid and continue bedtime insulin -will add SSI if BS remain elevated -Change diet to easy chew -Monitor for worsening hypertension and titrate medication as needed - labs as indicated, replace lytes prn - PT/OT/SW - delirium precautions: increase activity and limit nighttime disturbances -DVT prophylaxis: [] Lovenox [] Heparin [] SCDs [x] Encourage ambulation [] Already on Anticoagulation IP CONSULT TO SOCIAL WORK IP CONSULT TO HOSPITALIST Full Code Anticipated Discharge -Per primary team Total time spent (which include face to face and non face to face encounters) : 15 minutes Toxic drug monitoring/narrow therapeutic index drug monitoring : # Drug name : # Route administered : # Method of monitoring : (more content not included)... [facility] 02-20-2023 Note PHYSICAL THERAPY [facility] Initial Evaluation Name/MRN: Karri Piedra ([id number]) Evaluation Date: 02/20/2023 Date of : 1940 Admission Date: 02/18/2023 6:15 PM Age: 82 y.o. Room/Bed: S4113/S4113 A Discharge Recommendation: Care Home Facility Other: tbd Assessment IMPRESSION: Pt present with impaired mobility. Noted generalized weakness and decreased activity tolerance. Impaired balance during standing and gait. Requires mod assist to stand and ambulate short distance. Pt with impaired coordination limiting her functional mobility and level of independence. Very alex risk of falling, unsafe to return home. Recommend SNF at discharge. Diagnosis: Depression, suicidal ideation. History: Tardive Dyskinesia Prognosis: fair Performance Deficits /Impairments: Decreased Functional Mobility, Decreased ADL status, Decreased Strength, Decreased Safety Awareness, Decreased Cognition, Decreased Balance, and Decreased Coordination Decision Making: Medium Complexity Subjective Pt sitting on a wheelchair in the day room. Agree with Pt treatment. Slow to respond. Pain: Pt denies any current pain. Past Medical History: Past Medical History: Diagnosis Date Aphasia 02/19/2023 Chronic insomnia 02/19/2023 Confusion 02/19/2023 Depression Diabetes mellitus (HCC) Dysphagia 02/19/2023 Dysphagia GERD (gastroesophageal reflux disease) HLD (hyperlipidemia) Hypertension Tardive dyskinesia 02/19/2023 Tardive dyskinesia Past Surgical History: No past surgical history on file. Admission Diagnosis: Patient Active Problem List Diagnosis Date Noted Depression with suicidal ideation 02/19/2023 Suicidal behavior without attempted self-injury 02/19/2023 Aphasia 02/19/2023 Dysphagia 02/19/2023 Confusion 02/19/2023 Chronic insomnia 02/19/2023 Tardive dyskinesia 02/19/2023 Medical Precautions: No active isolations Proper PPE donned/doffed in accordance with facility standards. Fall Risk: Brennan Fall Risk Score: 50 (High Risk) Precautions/Restrictions: fall risk Family/Caregiver Present: none Overall Cognitive Status: Exceptions - Problem solving: assistance required to generate solutions and assistance required to implement solutions - Initiation: requires cues for all - Sequencing: requires cues for all Overall Orientation Status: Oriented to Person Vision: not assessed this session Hearing: normal Social/Functional History Patient admitted from home. Lives With: Spouse Difficult to obtain most information at this time. Per pt she used fww or cane. Prior Level of Function ADL Assistance: Independent Ambulation Assistance: Independent Device(s) used: front wheeled walker Transfer Assistance: Independent Objective Lower Extremity Assessment AROM: Exceptions: right hip flex 10 degrees in sitting PROM: WFL Strength: Exceptions: Left 4/5, RLE 4-/5 Bed Mobility: NA Transfers Sit to stand: Mod Assist, x2 Person Assist Stand to sit: Mod Assist, x2 Person Assist Performed 3x, last attempt mod assist x 1. Retrograde, FOF Ambulation Ambulation 1 Assistive device(s) used: front wheeled walker Assist level: Mod Assist, x2 Person Assist Distance (ft): 30 Quality of gait: ataxic, step to pattern, uneven step length, narrow MAHAMED, slow maximino, postural sway, path deviations, instability through all phases, wheelchair follow, expressed fear of fallikn Ambulation 2 Assistive device(s) used: front wheeled walker Assist level: Mod Assist, x2 Person Assist Distance (ft): 35 Quality of gait: ataxic, uneven step length, narrow MAHAMED, slow maximino, postural sway, path deviations, instability through all phases, Wheelchair follow Ambulation 3 Assistive device(s) used: front wheeled walker Assist level: Mod Assist Distance (ft): 35 Quality of gait: ataxic, step to pattern, shuffling, uneven step length, narrow MAHAMED, slow maximino, postural sway, path deviations, instability through all phases, wheelchair follow Coordination: Impaired: both LE, UE, upper body rocking/jerking, thrusting, fingers twisting, tongue darting, jaw sawing Tone: WFL Balance: static standing with 2 person assist, with fww. Cues to correct balance, retrograde at initial stand, expressed fear of falling, needing some re-assurance. Posture: fair Sitting - Static: SBA Sitting - Dynamic: SBA Standing - Static: Mod Assist Standing - Dynamic: Mod Assist, x2 Person Assist Outcome Measures AM-PAC How much HELP from another person do you currently need Turning from your back to your side while in a flat bed without using bedrails?: A Lot Moving from lying on your back to sitting on the side of a flat bed without using bedrails?: A Lot Moving to and from a bed to a chair (including a wheelchair)?: A Lot Standing up from a chair using your arms (wheelchair or bedside chair)?: A Lot Walking in a hospital room?: A Lot Stair climbing assessed?: No (more content not included)... [facility] 02-20-2023 Note PSYCHIATRIC EVALUATI ON/PROGRESS NOTE CC:depression, confusion HPI/INTERVAL Hx: Patient was examined, chart reviewed, case discussed with staff/IDT. Treatment plan reviewed. Patient was admitted due to []psychosis [x]depression, [x]anxiety, []PTSD, []bipolar, []chemical dependency, [x]SI, []homicidal ideation. Behavior sxs have been []absent, controlled, or of []mild, [x]moderate severity and have been present []intermittently [x]continuously for []days, [x]weeks, [x]months, []years. It []has [x]not responded to redirection, change in milieu (interventions and modifying factors). No other/new behavioral problems reported. Per patient and family patient has been increasingly confused over the last 4 weeks. Wandering around at night, refusing to take most of her medications. Sent here on the advice of her psychiatrist. Patient currently AxOx4. Also per family patient has made vague statements indicating suicidal thoughts. Patient son states he asked her what she wanted for [place] and patient stated, I wont be here for [place]. Patient denying SI/HI to me at this time. Karri Piedra is a 82 y.o. female who presents to the emergency department presents with family recommended to come to the ED by their psychiatrist for evaluation of intermittent confusion, cognitive decline, depression and suicidal ideations. Per family this has been going on for about a month, she has been on Zoloft, Remeron, various mental health medications without much improvement in her depression and more recently she has been refusing to take any of her medications thinking they are actually causing worsening of her depression and cognition. She has made passively suicidal comments but has no suicidal plans or attempts. Family states she was investigated for UTI at [facility] recently for these symptoms and it was unremarkable. She denies any areas of pain, any change in bowel or bladder habits, any fever, chills, sick contacts. There is no focal numbness weakness tingling, slurred speech, falls or trauma. Family is concerned she may need Jesi psych evaluation and placement evaluation as well. Pt is reported to be []stable [x]symptomatic psychiatrically on current medication/therapy/milieu regimen. Patient offered no specific complaints, had FIXED INCOME MANAGER eval due to concern re dysphagia. PT OT eval indicated need for SNF care. Remains confused, anxious, delayed responses . When asked re SI did not respond, shook head. Unclear why stopped medications at home. Refusing medications at home, more confusion, had UTI few weeks ago. Per son last week better then declined again, unsteady. Passive SI. No side effects reported. Short term goal-reduction in symptoms; long term care social worker goal -improved functioning, reduction in polypharmacy. TCT her psychiatrist dr Woods l/m. Per son pt did not have ECT Due to the above, patient was deemed to be at risk to self or others and was involuntarily committed to the psychiatric unit. PRN medication administered [] Severity []mild []moderate [x]severe Duration []intermittent [x]continuous Timing []am []pm [x]all day Modifying factors []none [x]pain Associated sxs [x]anxiety []see below Context [x]stress []specific Mood []stable []labile [x]dysphoric [x]anxious []irritable Anxiety []stable [x]elevated Sleep []good [x]disrupted []unchanged Appetite []good [x]low Energy []good [x]low []elevated Concentration []good [x]impaired []improving Weight change [x]None []mild Hallucinations []Yes [x]no Delusions [x]Yes []no Paranoia [x]Yes []no Alcohol and drug use []Yes [x]no Risk to self and others []Low []Moderate []High Suicidality [x]Yes []No ADL [x]Independent []dependent IADL []Independent [x]dependent Side effects none Short term goal-reduction in symptoms; long term care social worker goal -improved functioning, reduction in polypharmacy. Patient []has [x]has no prior psychiatric hospitalizations. Patient has previously been diagnosed with [x]depression []bipolar, []dementia [x]anxiety []insomnia []behavioral disturbances []schizophrenia []psychosis []mood disorder []MRDD. Condition: unchanged Prognosis: fair Level of care/functionality: cont to need inpt level of care Barriers to discharge: cont psychiatric symptoms Patient continues to need, on a daily basis, active treatment furnished directly by or requiring the supervision of inpatient psychiatric personnel []1 or more chronic illnesses with exacerbation, 2 or more stable chronic illnesses, or 1 new problem/acute illness or injury [x]1 or more chronic illnesses with severe exacerbation, progression or side effects of treatment; or 1 acute or chronic illness or injury that poses a threat to life or bodily function []Dx or tx significantly limited by social determinants of health [x]three or more tests ordered, tests reviewed outside of psychiatry, or review notes from outside of psychiatry; with an independent int (more content not included)... [facility] 02-20-2023 Note OCCUPATIONAL THERAPY [facility] Initial Evaluation Name/MRN: Karri Piedra ([id number]) Evaluation Date: 02/20/2023 Date of : 1940 Admission Date: 02/18/2023 6:15 PM Age: 82 y.o. Room/Bed: S4-113/S4-113 A Discharge Recommendation: Care Home Facility Equipment Needed: (TBD) Assessment IMPRESSION: Pt presented with SI, increased confusion, and decreased med compliance. Pt having difficulty remembering what her previous level of function was, upset throughout session stating she is having a hard time thinking. Pt currently requires min assist for bed mobility, mod assist for transfers, mod assist for attempted steps but too unsafe to complete, and SBA-mod assist for ADLs. OT recommending SNF. Performance Deficits /Impairments: Decreased Functional Mobility, Decreased ADL status, Decreased Strength, Decreased Safety Awareness, Decreased Cognition, Decreased Endurance, Decreased Sensation, Decreased Balance, Decreased Vision/Visual Deficit, Decreased High Level IADLs, and Decreased Posture Prognosis: Fair Decision Making: Medium Complexity Subjective Pt supine in bed, on the phone with her family, agreeable to OT. Ok to see per RN. Pain: Pt denies any current pain. Past Medical History: Past Medical History: Diagnosis Date Aphasia 02/19/2023 Chronic insomnia 02/19/2023 Confusion 02/19/2023 Depression Diabetes mellitus (HCC) Dysphagia 02/19/2023 Dysphagia GERD (gastroesophageal reflux disease) HLD (hyperlipidemia) Hypertension Tardive dyskinesia 02/19/2023 Tardive dyskinesia Past Surgical History: No past surgical history on file. Admission Diagnosis: Patient Active Problem List Diagnosis Date Noted Depression with suicidal ideation 02/19/2023 Suicidal behavior without attempted self-injury 02/19/2023 Aphasia 02/19/2023 Dysphagia 02/19/2023 Confusion 02/19/2023 Chronic insomnia 02/19/2023 Tardive dyskinesia 02/19/2023 Medical Precautions: No active isolations Proper PPE donned/doffed in accordance with facility standards. Fall Risk: Brennan Fall Risk Score: 50 (High Risk) Precautions/Restrictions: fall precautions, bed alarm, history of tardive dyskinesia- speaks very slowly and required extended time to respond but will respond appropriately. Family/Caregiver Present: none Overall Cognitive Status: Pt reports throughout session she feels confused. Impulsive and decreased safety awareness. Required cues for sequencing and initiation. Overall Orientation Status: Oriented to Place and Oriented to Person Social/Functional History Patient admitted from home. Lives With: Spouse Difficult to obtain most information at this time Prior Level of Function ADL Assistance: unable to obtain Ambulation Assistance: unable to obtain Transfer Assistance: unable to obtain Objective ADLs LE Dressing: SBA, able to don/doff B socks while sitting EOB- anticipate pt would require significant more assistance with pants management. Upper Extremity Assessment AROM: WFL PROM: Not assessed this session Strength: WFL Vision: wears glasses at all times and and are being used during the eval Hearing: normal Bed Mobility Supine to sit: Min Assist, cues for sequencing Sit to supine: Min Assist, for B LE Transfers/Functional Mobility Sit to stand: Mod Assist Stand to sit: Mod Assist Stand step: Mod Assist Pt stood from EOB up with no device, sat down for safety after unable to take steps. Second stand up to FWW- unsure if pt was unable to hold herself up or appeared to be passing out- quickly return to sitting with assist from OT. Transferred from EOB to WC, then WC back to EOB. Device(s) used: front wheeled walker, wheelchair - manual, and hand held assist AM-PAC AM-PAC Inpatient Daily Activity Raw Score: 15 ADL Inpatient [facility] G-Code Modifier: CK Plan Pt would benefit from skilled acute OT services to address Strengthening, Balance Training, Functional Mobility Training, Endurance Training, Cognitive Reorientation, Safety Education and Training, Patient/Caregiver Training, Equipment Evaluation/Education, Positioning, Self-Care/ADL Training, and Home Management Training. Frequency: 1x/week for 4 weeks Barriers: Confusion, Cognitive deficit, Impulsivity, Limited safety awareness, Limited insight into deficits, Communication deficit, Decreased endurance, Decreased sensation, Upper extremity weakness, and Lower extremity weakness Prognosis: fair Safety/Education Safety Safety Devices in place: All fall risk precautions in place, call light within reach, left in bed, bed alarm in place, gait belt, patient at risk for falls, and nurse notified Restraints: N/A Education Education Given To: patient Education Provided: OT Role, Plan of Care, ADL Adaptive Strategies, and Transfer Training Education Method: Verbal Barriers to Learning: Cognition Education Outcome: Verbalized Understanding and Continued Edu (more content not included)... [facility] 02-19-2023 Note PSYCHIATRIC EVALUATI ON/PROGRESS NOTE CC:depression, confusion HPI/INTERVAL Hx: Patient was examined, chart reviewed, case discussed with staff/IDT. Treatment plan reviewed. Patient was admitted due to []psychosis [x]depression, [x]anxiety, []PTSD, []bipolar, []chemical dependency, [x]SI, []homicidal ideation. Behavior sxs have been []absent, controlled, or of []mild, [x]moderate severity and have been present []intermittently [x]continuously for []days, [x]weeks, [x]months, []years. It []has [x]not responded to redirection, change in milieu (interventions and modifying factors). No other/new behavioral problems reported. Per patient and family patient has been increasingly confused over the last 4 weeks. Wandering around at night, refusing to take most of her medications. Sent here on the advice of her psychiatrist. Patient currently AxOx4. Also per family patient has made vague statements indicating suicidal thoughts. Patient son states he asked her what she wanted for [place] and patient stated, I wont be here for Joe. Patient denying SI/HI to me at this time. Krari Piedra is a 82 y.o. female who presents to the emergency department presents with family recommended to come to the ED by their psychiatrist for evaluation of intermittent confusion, cognitive decline, depression and suicidal ideations. Per family this has been going on for about a month, she has been on Zoloft, Remeron, various mental health medications without much improvement in her depression and more recently she has been refusing to take any of her medications thinking they are actually causing worsening of her depression and cognition. She has made passively suicidal comments but has no suicidal plans or attempts. Family states she was investigated for UTI at [facility] recently for these symptoms and it was unremarkable. She denies any areas of pain, any change in bowel or bladder habits, any fever, chills, sick contacts. There is no focal numbness weakness tingling, slurred speech, falls or trauma. Family is concerned she may need Jesi psych evaluation and placement evaluation as well. Pt is reported to be []stable [x]symptomatic psychiatrically on current medication/therapy/milieu regimen. Patient offered no specific complaints except for confusion. Feels depressed, anxious, confused. Refusing medications at home, more confusion, had UTI few weeks ago. Per son last week better then declined again, unsteady. Passive SI. No side effects reported. Short term goal-reduction in symptoms; mcc goal -improved functioning, reduction in polypharmacy. Due to the above, patient was deemed to be at risk to self or others and was involuntarily committed to the psychiatric unit. PRN medication administered [] Severity []mild []moderate [x]severe Duration []intermittent [x]continuous Timing []am []pm [x]all day Modifying factors []none [x]pain Associated sxs [x]anxiety []see below Context [x]stress []specific Mood []stable []labile [x]dysphoric [x]anxious []irritable Anxiety []stable [x]elevated Sleep []good [x]disrupted []unchanged Appetite []good [x]low Energy []good [x]low []elevated Concentration []good [x]impaired []improving Weight change [x]None []mild Hallucinations []Yes [x]no Delusions [x]Yes []no Paranoia [x]Yes []no Alcohol and drug use []Yes [x]no Risk to self and others []Low []Moderate []High Suicidality [x]Yes []No ADL [x]Independent []dependent IADL []Independent [x]dependent Side effects none Short term goal-reduction in symptoms; mcc goal -improved functioning, reduction in polypharmacy. Patient []has [x]has no prior psychiatric hospitalizations. Patient has previously been diagnosed with [x]depression []bipolar, []dementia [x]anxiety []insomnia []behavioral disturbances []schizophrenia []psychosis []mood disorder []MRDD. Condition: unchanged Prognosis: fair Level of care/functionality: cont to need inpt level of care Barriers to discharge: cont psychiatric symptoms Patient continues to need, on a daily basis, active treatment furnished directly by or requiring the supervision of inpatient psychiatric personnel []1 or more chronic illnesses with exacerbation, 2 or more stable chronic illnesses, or 1 new problem/acute illness or injury []1 or more chronic illnesses with severe exacerbation, progression or side effects of treatment; or 1 acute or chronic illness or injury that poses a threat to life or bodily function []Dx or tx significantly limited by social determinants of health []three or more tests ordered, tests reviewed outside of psychiatry, or review notes from outside of psychiatry; with an independent interpretation of tests or discussion of management or test interpretation with a provider outside of psychiatry []therapy requiring intensive monitoring for toxicity []prescription drug management []high risk of morbidity wit (more content not included)... [facility] Evaluation note No assessment information [facility] Work Phone: Summary Purpose Family History No Family History Records FoundNo Family History Records FoundNo Family History Records FoundNo Family History Records Found Advance Directives No Advanced Directives Records FoundNo Advanced Directives Records FoundNo Advanced Directives Records FoundNo Advanced Directives Records Found Chief Complaint and Reason for Visit Chief Complaint EORDER Chief Complaint E ORDER Additional Source Comments INFORMATION SOURCE (unrecogn ized section and content) DATE CREATED AUTHOR 05/19/2018 [facility] ([place]) DATE CREATED AUTHOR AUTHOR'S ORGANIZ ATION 10/30/2018 [facility] ([place]) DATE CREATED AUTHOR AUTHOR'S ORGANIZ ATION 03/23/2023 [facility] DATE CREATED AUTHOR AUTHOR'S ORGANIZ ATION 08/29/2024 [facility] Goals (unrecognized section and content) Goals may be documented in a n alternate sectionGoals may be documented in an alternate section FOR RECORDS PERTAINING TO PATIENTS WHO ARE OR HAVE BEEN ENROLLED IN A CHEMICAL DEPENDENCY/SUBSTANCEABUSE PROGRAM, SOME INFORMATION MAY BE OMITTED. This clinical summary was aggregated from multiple sources. Caution should be exercised in using it in the provision of clinical care. This summary normalizes information from multiple sources, and as a consequence, information in this document may materially change the coding, format and clinical context of patient data. In addition, data may be omitted in some cases. CLINICAL DECISIONS SHOULD BE BASED ON THE PRIMARY CLINICAL RECORDS. [employer] [facility]. provides no warranty or guarantee of the accuracy or completeness of information in this document.
== END | disposition home or self-care (01) ==
LOC: NM 10:15
PROVIDERS: PCP Family Medicine; Referring Provider Family Medicine; Visit Provider Family Medicine
DX: R19.7 Diarrhea, unspecified (principal); R10.9 Unspecified abdominal pain
CPT/HCPCS: 78264; A9541

== ENCOUNTER → 2024-09-30 | Outpatient (CLI) | payer MEDICARE, OTHER, SELFPAY ==
[2024-09-30 15:37] LABS: Hematocrit 36.7 % (37-47); Hemoglobin 11.7 g/dL (12.0-15.0); Immature Granulocytes Count 0.010 X10^3/uL (0.0-0.0); Mean Corp Hgb Conc 31.9 g/dL (32-36); Mean Corpuscular Volume 89.5 fL (81-99); Mean Platelet Vol. 11.8 fl (6.2-12.0); NRBC Flagged by Analyzer 0 % (0-5); Platelet Count 192 K/mm3 (150-450); RBC Distribution Width CV 13.8 % (11.6-14.6); RBC Distribution Width SD 45.2 fl (35.1-43.9); Red Blood Count 4.10 M/mm3 (4.2-5.4); White Blood Count 5.4 K/mm3 (4.4-11.0)
[2024-09-30 16:16] LABS: FOLATES,SERUM (FOLIC ACID) 18.80 ng/mL (4.60-34.80)
[2024-09-30 16:19] LABS: AST(SGOT) 29 U/L (<=31); Alanine Aminotransfer ALT/SGPT 26 U/L (<=34); Albumin, Serum 4.1 g/dL (3.4-4.8); Alkaline Phosphatase 82 U/L (35-104); Anion Gap 12 (5-15); BUN 7 mg/dL (4-19); BUN/Creat Ratio 10.4 RATIO (10-20); Calcium,Total 9.5 mg/dL (7.6-11.0); Carbon Dioxide 26.3 mmol/L (21.0-32.0); Chloride 103 mmol/L (98-108); Ferritin 38 ng/mL (22-378); Globulin 2.6 g/dL (2.2-4.2); Glucose 205 mg/dL (70-99); Iron 49 ug/dL (50-170); Iron Binding Capacity,Total 341 ug/dL (250-450); Iron Binding Capacity,Unsat 292 ug/dL (228-428); Potassium 4.0 mmol/L (3.3-5.1); Vitamin B12 441 pg/mL (180-914); Vitamin D,25 Hydroxy 28.5 ng/mL (30-100)
[2024-09-30 16:54] LABS: Cholesterol 131 mg/dL (<=200); Low Density Lipoprotein Calc. 46 mg/dL; Triglycerides 216 mg/dL; Very Low Density Lipoprotein 43 mg/dL (5-40); cholesterol:hdl ratio screen 3.16
== END | disposition home or self-care (01) ==
LOC: MFPLAB 11:04
PROVIDERS: PCP Family Medicine; Referring Provider Family Medicine; Visit Provider Family Medicine
DX: E11.69 Type 2 diabetes mellitus with other specified complication (principal); D64.9 Anemia, unspecified; E55.9 Vitamin D deficiency, unspecified
CPT/HCPCS: 36415; 80053; 80061; 82043; 82306; 82570; 82607; 82728; 82746; 83036; 83540; 83550; 85025

== ENCOUNTER → 2024-10-06 | Outpatient (CLI) | payer MEDICARE, OTHER, SELFPAY ==
--- NOTE | 2024-10-06 10:05 | US_ITS ---
PROCEDURE: ABDOMEN LIMITED N/A REASON FOR EXAM: NAUSEA AFTER EATING, GASTRIC EMPTYING STUDY NORMAL COMPARISON: None FINDINGS: Liver: Diffusely echogenic suggesting fatty infiltration. Gallbladder: Multiple gallstones. The largest gallstone measures 2.6 cm by 1.6 cm by 1.5 cm. Common bile duct: Normal measuring 4 mm . Pancreas: Visualized portions are sonographically unremarkable. Other: Visualized portions of the right kidney are unremarkable. No right upper quadrant ascites. US/Abdomen Limited IMPRESSION: Gallstone 1 6 cm 1.6 cm 1.5 cm. Reading Location: [id number]
--- OUTSIDE RECORDS SUMMARY | 2024-10-06 18:00 | XMS RPT_ITS | CCD ---
Author Organization [facility] Care Team Providers Care Cyber Legal Advisor Name Role Phone SHERIDAN NOWAK Attending Unavailable RONAK MCCRARY Primary Care Unavailable SHERIDAN NOWAK Attending Unavailable RONAK MCCRARY Primary Care Unavailable YUMIKO GASCA Admitting Unavailable HARPREET DUBOIS Consulting Unavailable YUMIKO GASCA Attending Unavailable FARIBA ROMERO Consulting Unavailable Sylvain Salamanca Attending Unavailable Sylvain Salamanca Consulting Unavailable Ronak Escalante Primary Care Unavailable Sheridan Nowak Admitting Unavailable Sheridan Nowak Referring Unavailable Sheridan Nowak Consulting Unavailable Sheridan Woods Attending Unavailable Ronak Escalante Primary Care Unavailable Ronak Escalante Primary Care Unavailable Sheridan Woods Attending Unavailable Ronak Escalante Primary Care Unavailable Sheridan Woods Attending Unavailable Ronak Escalante Referring Unavailable Ronak Escalante Attending Unavailable Ronak Escalante Primary Care Unavailable Charly Perez Referring Unavailable Charly Perez Attending Unavailable Ronak Escalante Primary Care Unavailable Ronak Escalante Referring Unavailable Ronak Escalante Primary Care Unavailable Ronak Escalante Attending Unavailable Ronak Escalante Primary Care Unavailable Sheridan Nowak Referring Unavailable Sheridan Nowak Attending Unavailable Ronak Escalante Referring Unavailable Ronak Escalante Primary Care Unavailable Ronak Escalante Attending Unavailable Ronak Escalante Referring Unavailable Ronak Escalante Attending Unavailable Ronak Escalante Primary Care Unavailable Ronak Escalante Primary Care Unavailable Sheridan Nowak Referring Unavailable Scooter Reyes Attending Unavailable Ronak Escalante Referring Unavailable Ronak Escalante Attending Unavailable Ronak Escalante Primary Care Unavailable Ronak Escalante Primary Care Unavailable Tanner Neal Referring Unavailable Tanner Neal Attending Unavailable Schinner, Ronak E Primary Care Unavailable Michael Gotti Consulting Unavailable Sheridan Nowak Referring Unavailable Eliu, Sheridan Attending Unavailable Schinner, Ronak E Primary Care Unavailable Eliu, Sheridan Referring Unavailable Eliu, Sheridan Attending Unavailable Schinner, Ronak E Primary Care Unavailable Schinner, Ronak E Attending Unavailable Sylvain Salamanca Consulting Unavailable Schinner, Ronak E Primary Care Unavailable Matias Nowaken Attending Unavailable Matias Nowaken Admitting Unavailable Eliu, Sheridan Referring Unavailable Referred, Self Attending Unavailable Schinner, Ronak E Primary Care Unavailable Referred, Self Attending Unavailable Schinner, Ronak E Primary Care Unavailable Schinner, Ronak E Referring Unavailable Schinner, Ronak E Attending Unavailable Schinner, Ronak E Primary Care Unavailable Schinner, Ronak E Referring Unavailable Schinner, Ronak E Primary Care Unavailable Schinner, Ronak E Attending Unavailable Schinner, Ronak E Referring Unavailable Schinner, Ronak E Attending Unavailable Schinner, Ronak E Primary Care Unavailable Allergies Allergy Classification Reported Allergen(s) Allergy Type Date of Onset Reaction(s) Facility (1 source) Codeine Drug Allergy 06-21-2024 [facility] Repository (1 source) Morphine Drug Allergy 06-21-2024 [facility] Repository Problems Active Problems Problem Classification Problem [...] Mood disorders; Translations: [Depression, unspecified] Onset: 02-18-2023 Nausea and vomiting (1 source) Nausea; Translations: [Nausea] Onset: 10-05-2024 Episodic Osteoarthritis (1 source) Primary osteoarthritis, right shoulder; Translations: [Primary osteoarthritis, right shoulder] Onset: 07-11-2024 Chronic Other aftercare (2 sources) 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; Translations: [long-term (current) use of insulin (HCC)] Onset: 02-18-2023 Episodic Other connective tissue disease (1 source) Presence of right artificial shoulder joint; Translations: [Presence of right artificial shoulder joint] Onset: 06-23-2024 Chronic Other gastrointestinal disorders (1 source) Diarrhea, unspecified; Translations: [Diarrhea, unspecified] Onset: 09-08-2024 Episodic Other nervous system disorders (2 sources) Other symptoms and signs involving cognitive functions and awareness; Translations: [Other symptoms and signs involving cognitive functions and awareness] Onset: 02-18-2023 Episodic Suicide and intentional self-inflicted injury (2 sources) Suicidal ideations; Translations: [Suicidal ideations] Onset: 02-18-2023 Episodic Past or Other Problems Problem Classification Problem Date Documented Da te Episodic/Chronic Other hereditary and degenerative nervous system conditions (1 source) Drug induced subacute dyskinesia; Translations: [Drug induced subacute dyskinesia] Onset: 06-14-2024 Episodic Spondylosis; intervertebral disc disorders; other back problems (1 source) Cervicalgia; Translations: [Cervicalgia] Onset: 11-17-2023 Episodic Results Test Name Value Interpretation Reference Range Facility CBC W/Diff, Automatedon 09-08 Absolute Lymph 2.14 X10 3/uL Normal 0.83-4.51 [facility] Comment on above: Performed By: #### L 501.080 #### [facility] [address] [place], [address] Absolute Neut 2.5 X10 3/uL Normal 2.0-7.7 [facility] Comment on above: Performed By: #### L 501.080 #### [facility] [address] [facility] [place], [address] Basophils/100 WBC (Bld) 1.3 % High 0-1 [facility] Comment on above: Performed By: #### L 501.080 #### [facility] [address] [place], [address] Eosinophils/100 WBC (Bld) 5.5 % High 0-5 [facility] Comment on above: Performed By: #### L 501.080 #### [facility] [address] [place], [address] Erythrocyte distribution width (RBC) [Ratio] 13.8 % Normal 11.6-14.6 [facility] Comment on above: Performed By: #### L 501.080 #### [facility] [address] [place], [address] Hematocrit (Bld) [Volume fraction] 36.7 % Low 37-47 [facility] Comment on above: Performed By: #### L 501.080 #### [facility] [address] [place], [address] Hemoglobin (Bld) [Mass/Vol] 11.7 g/dL Low 12.0-15.0 [facility] Comment on above: Performed By: #### L 501.080 #### [facility] [address] [place], [address] IG% 0.200 Normal 0.0-0.9 [facility] Comment on above: Result Comment: IG% - Immature Granulocytes (promyelocytes, myelocytes and metamyelocytes) > 1% indicates that a LEFT SHIFT is Present. Performed By: #### L 501.080 #### [facility] [address] [place], [address] Lymphocytes/100 WBC (Bld) 39.5 % Normal 19-41 [facility] Comment on above: Performed By: #### L 501.080 #### [facility] [address] [place], [address] MCH (RBC) [Entitic mass] 28.5 pg Normal 27.0-32.0 [facility] Comment on above: Performed By: #### L 501.080 #### [facility] [address] [place], [address] MCHC (RBC) [Mass/Vol] 31.9 g/dL Low 32-36 [facility] Comment on above: Performed By: #### L 501.080 #### [facility] [address] [place], [address] MCV (RBC) [Entitic vol] 89.5 fL Normal 81-99 [facility] Comment on above: Performed By: #### L 501.080 #### [facility] [address] [place], [address] Monocytes/100 WBC (Bld) 7.7 % Normal 0-10 [facility] Comment on above: Performed By: #### L 501.080 #### [facility] [address] [place], [address] Neutrophils/100 WBC (Bld) 45.8 % Low 47-70 [facility] Comment on above: Performed By: #### L 501.080 #### [facility] [address] [place], [address] Nucleated RBC (Bld) [#/Vol] 0 10*3/uL Normal 0-5 [facility] Comment on above: Performed By: #### L 501.080 #### [facility] [address] [place], [address] Platelet mean volume (Bld) [Entitic vol] 11.8 fL Normal 6.2-12.0 [facility] Comment on above: Performed By: #### L 501.080 #### [facility] [address] [place], [address] Platelets (Bld) [#/Vol] 192 10*3/uL Normal 150-450 [facility] Comment on above: Performed By: #### L 501.080 #### [facility] [address] [place], [address] RBC (Bld) [#/Vol] 4.10 10*6/uL Low 4.2-5.4 [facility] Comment on above: Performed By: #### L 501.080 #### [facility] [address] [place], [address] RDW SD 45.2 fl High 35.1-43.9 [facility] Comment on above: Performed By: #### L 501.080 #### [facility] [address] [place], [address] WBC (Bld) [#/Vol] 5.4 10*3/uL Normal 4.4-11.0 [facility] Comment on above: Performed By: #### L 501.080 #### [facility] [address] [place], [address] Comprehensive Metabolic [facility] 09-30-2024 Albumin [Mass/Vol] 4.1 g/dL Normal 3.4-4.8 [facility] Comment on above: Performed By: #### L 501.5200, M100.0605, L7000.0300, L500.4050, L100.0100, M100.6796 #### [facility] [address] [place], [address] Albumin/Globulin [Mass ratio] 1.6 {ratio} Normal 0.9-2.4 [facility] Comment on above: Performed By: #### L 501.5200, M100.0605, L7000.0300, L500.4050, L100.0100, M100.6796 #### [facility] [address] [place], [address] ALK PHOS 82 U/L Normal 35-104 [facility] Comment on above: Performed By: #### L 501.5200, M100.0605, L7000.0300, L500.4050, L100.0100, M100.6796 #### [facility] [address] [place], [address] ALT [Catalytic activity/Vol] 26 U/L Normal <=34 [facility] Comment on above: Performed By: #### L 501.5200, M100.0605, L7000.0300, L500.4050, L100.0100, M100.6796 #### [facility] [address] [place], [address] AST [Catalytic activity/Vol] 29 U/L Normal <=31 [facility] Comment on above: Performed By: #### L 501.5200, M100.0605, L7000.0300, L500.4050, L100.0100, M100.6796 #### [facility] [address] [place], [address] Bilirubin [Mass/Vol] 0.35 mg/dL Normal 0.00-1.30 [facility] Comment on above: Performed By: #### L 501.5200, M100.0605, L7000.0300, L500.4050, L100.0100, M100.6796 #### [facility] [address] [place], [address] BUN/CRE 10.4 RATIO Normal 10-20 [facility] Comment on above: Performed By: #### L 501.5200, M100.0605, L7000.0300, L500.4050, L100.0100, M100.6796 #### [facility] [address] [place], [address] Calcium [Mass/Vol] 9.5 mg/dL Normal 7.6-11.0 [facility] Comment on above: Performed By: #### L 501.5200, M100.0605, L7000.0300, L500.4050, L100.0100, M100.6796 #### [facility] [address] [place], [address] Chloride [Moles/Vol] 103 mmol/L Normal 98-108 [facility] Comment on above: Performed By: #### L 501.5200, M100.0605, L7000.0300, L500.4050, L100.0100, M100.6796 #### [facility] [address] [place], [address] CO2 [Moles/Vol] 26.3 mmol/L Normal 21.0-32.0 [facility] Comment on above: Performed By: #### L 501.5200, M100.0605, L7000.0300, L500.4050, L100.0100, M100.6796 #### [facility] [address] [place], [address] Creatinine [Mass/Vol] 0.68 mg/dL Low 0.70-1.20 [facility] Comment on above: Performed By: #### L 501.5200, M100.0605, L7000.0300, L500.4050, L100.0100, M100.6796 #### [facility] [address] [place], [address] GAP 12 Normal 5-15 [facility] Comment on above: Performed By: #### L 501.5200, M100.0605, L7000.0300, L500.4050, L100.0100, M100.6796 #### [facility] [address] [place], [address] GFR/1.73 sq M.predicted among non-blacks MDRD (S/P/Bld) [Vol rate/Area] 85 mL/min/{1.73_m2} Normal >60 [facility] Comment on above: Result Comment: mL/m in/1.73m2 CKD-EPI Creatinine Equation (2020) Performed By: #### L 501.5200, M100.0605, L7000.0300, L500.4050, L100.0100, M100.6796 #### [facility] [address] [place], [address] Globulin (S) [Mass/Vol] 2.6 g/dL Normal 2.2-4.2 [facility] Comment on above: Performed By: #### L 501.5200, M100.0605, L7000.0300, L500.4050, L100.0100, M100.6796 #### [facility] [address] [place], [address] Glucose [Mass/Vol] 205 mg/dL High 70-99 [facility] Comment on above: Performed By: #### L 501.5200, M100.0605, L7000.0300, L500.4050, L100.0100, M100.6796 #### [facility] [address] [place], [address] Potassium [Moles/Vol] 4.0 mmol/L Normal 3.3-5.1 [facility] Comment on above: Performed By: #### L 501.5200, M100.0605, L7000.0300, L500.4050, L100.0100, M100.6796 #### [facility] [address] [place], [address] Sodium [Moles/Vol] 141 mmol/L Normal 133-145 [facility] Comment on above: Performed By: #### L 501.5200, M100.0605, L7000.0300, L500.4050, L100.0100, M100.6796 #### [facility] [address] [place], [address] T PROT 6.7 g/dL Normal 5.9-8.4 [facility] Comment on above: Performed By: #### L 501.5200, M100.0605, L7000.0300, L500.4050, L100.0100, M100.6796 #### [facility] [address] [place], [address] Urea nitrogen [Mass/Vol] 7 mg/dL Normal 4-19 [facility] Comment on above: Performed By: #### L 501.5200, M100.0605, L7000.0300, L500.4050, L100.0100, M100.6796 #### [facility] [address] [place], [address] Ferritinon 09-30-2024 Ferritin [Mass/Vol] 38 ng/mL Normal 22-378 [facility] Comment on above: Performed By: #### L 501.5200, M100.0605, L7000.0300, L500.4050, L100.0100, M100.6796 #### [facility] [address] [place], [address] Folates,Serum (Folic Acid)on 09-30-2024 FOLATES,SERUM 18.80 ng/mL Normal 4.60-34.80 [facility] Comment on above: Order Comment: N Performed By: #### L 501.080 #### [facility] [address] [place], [address] Hemoglobin A1con 09-30-2024 HbA1c (Bld) [Mass fraction] 8.2 % High <=5.6 [facility] Comment on above: Result Comment: Norm al < 5.7 % Prediabetic 5.7 - 6.4 % Diabetic >or= 6.5 % Please note range changes. Performed By: #### L 501.080 #### [facility] [address] [place], [address] Iron+Iron Binding Capacityon 09-30-2024 Iron [Mass/Vol] 49 ug/dL Low 50-170 [facility] Comment on above: Performed By: #### L 501.5200, M100.0605, L7000.0300, L500.4050, L100.0100, M100.6796 #### [facility] [address] [place], [address] IRON SATURATION 14.0 Normal 13-59 [facility] Comment on above: Performed By: #### L 501.5200, M100.0605, L7000.0300, L500.4050, L100.0100, M100.6796 #### [facility] [address] [place], [address] TIBC 341 ug/dL Normal 250-450 [facility] Comment on above: Performed By: #### L 501.5200, M100.0605, L7000.0300, L500.4050, L100.0100, M100.6796 #### [facility] [address] [place], [address] UIBC 292 ug/dL Normal 228-428 [facility] Comment on above: Performed By: #### L 501.5200, M100.0605, L7000.0300, L500.4050, L100.0100, M100.6796 #### [facility] [address] [place], [address] Lipid Profileon 09-30-2024 CHOL:HDL 3.16 Normal [facility] Comment on above: Performed By: #### L 501.5200, M100.0605, L7000.0300, L500.4050, L100.0100, M100.6796 #### [facility] [address] [place], [address] Cholesterol [Mass/Vol] 131 mg/dL Normal <=200 [facility] Comment on above: Result Comment: Chol esterol level, Desirable <200 mg/dL Borderline high cholesterol 200-239 mg/dL High cholesterol >=240 mg/dL Recommendations of the NCEP Adult Treatment Panel for the following risk-cutoff thresholds for the [place] population. Performed By: #### L 501.5200, M100.0605, L7000.0300, L500.4050, L100.0100, M100.6796 #### [facility] [address] [place], [address] Cholesterol in HDL [Mass/Vol] 42 mg/dL Normal [facility] Comment on above: Result Comment: [place] onal Cholesterol Education Program (NCEP) guidelines: <40 mg/dL: Low HDL-cholesterol (major risk factor for CHD) >= 60 mg/dL: High HDL-cholesterol (negative risk factor for CHD) HDL-cholesterol is affected by a number of factors, e.g. smoking, exercise, hormones, sex and age. Performed By: #### L 501.5200, M100.0605, L7000.0300, L500.4050, L100.0100, M100.6796 #### [facility] [address] [place], [address] Cholesterol in LDL [Mass/Vol] 46 mg/dL Normal [facility] Comment on above: Result Comment: Bord nrlhvv=202-377 mg/dL Higher Hvzs=777 mg/dL or greater Performed By: #### L 501.5200, M100.0605, L7000.0300, L500.4050, L100.0100, M100.6796 #### [facility] [address] [place], [address] Cholesterol in VLDL [Mass/Vol] 43 mg/dL High 5-40 [facility] Comment on above: Performed By: #### L 501.5200, M100.0605, L7000.0300, L500.4050, L100.0100, M100.6796 #### [facility] [address] [place], [address] Triglyceride [Mass/Vol] 216 mg/dL High [facility] Comment on above: Result Comment: The drugs N-Acetylcysteine and Metamizole may falsely depress this assay. Normal range: <150 mg/dL Borderline High: 150-199 mg/dL High: 200-499 mg/dL Very High: >500 mg/dL Performed By: #### L 501.5200, M100.0605, L7000.0300, L500.4050, L100.0100, M100.6796 #### [facility] [address] [place], [address] Microalb:Creat Ratio,Random URon 09-30-2024 MALB:CREAT Normal <30 mg/g CRE [facility] Comment on above: Result Comment: This specimen has been REJECTED due to Laboratory criteria: Quanity Not Sufficient. LAB EMAIL has been notified of need of recollection. 09/30/24 1612 Chuyita Lollo Performed By: #### L 501.080 #### [facility] [address] [place], [address] MICROALBUMIN,UR Normal <20 mg/L [facility] Comment on above: Result Comment: This specimen has been REJECTED due to Laboratory criteria: Quanity Not Sufficient. LAB EMAIL has been notified of need of recollection. 09/30/24 1612 Chuyita Lollo Performed By: #### L 501.080 #### [facility] [address] [place], [address] UR CREAT Normal 28.00-217.0 0 [facility] Comment on above: Result Comment: This specimen has been REJECTED due to Laboratory criteria: Quanity Not Sufficient. LAB EMAIL has been notified of need of recollection. 09/30/24 1612 Chuyita Lollo Performed By: #### L 501.080 #### [facility] [address] [place], [address] Vitamin B12on 09-30-2024 Cobalamin (Vitamin B12) [Mass/Vol] 441 pg/mL Normal 180-914 [facility] Comment on above: Performed By: #### L 501.5200, M100.0605, L7000.0300, L500.4050, L100.0100, M100.6796 #### [facility] [address] [place], [address] Vitamin D,25 Hydroxyon 09-30 Vitamin D 25-OH 28.5 ng/mL Low 30-100 [facility] Comment on above: Result Comment: Yessenia min D Status Deficiency: <20 ng/mL (50nmol/L) Insufficiency: 20-30 ng/mL (50-75 nmol/L) Sufficiency: 30-100 ng/mL (75-250 nmol/L) Toxicity: >100 ng/mL (>250 nmol/L) Performed By: #### L 501.5200, M100.0605, L7000.0300, L500.4050, L100.0100, M100.6796 #### [facility] [address] [place], [address] Gastric Emptying Studyon Gastric Emptying Study [facility] Imaging Services [address] [facility] [place] [address] Gastric Emptying Study MR#: [id number] Acct: [id number] Name: Jose PIEDRA Rep #: [id number] : 1940 F 84 From: Rajeev [place] PCP: Dr. Ronak Escalante MD Status: REG CLI Study: Gastric Emptying Study Date of Exam: 09/03/24 Exam# [id number] Ordering Dr: Ronak Escalante MD PROCEDURE: GASTRIC EMPTYING STUDY 09/03/2024 REASON FOR EXAM: DIARRHEA/ABD PAIN COMPARISON: None. TECHNIQUE: The patient ingested a semi-solid meal oatmeal. There was no vomiting postprandially. Anterior and posterior planar images of the upper abdomen were obtained for a total of 60 minutes. Regions of interest were drawn, and a geometric mean was used to calculate a [id number]. Medications taken in the past 24 hours that may affect gastric emptying: None RADIOPHARMACEUTICAL: Technetium 99 M sulfur colloid DOSE 1.2mCi intravenous. FINDINGS: No gastroesophageal reflux was seen during the time of imaging. Linear phase gastric emptying half time of 45.13 minutes. Data half-time of 41.14 minutes Gastric emptying at 17.5 minutes of 26 percent, at 29.5 minutes of 38 percent, at 47.5 minutes of 54 percent, and at 59.5 minutes of 61 percent. NM/Gastric Emptying Study IMPRESSION: Normal semi solid phase gastric emptying. Reading Location: [place] [address] CC: Dr. Ronak Escalante MD Pay Clerk: Signed Normal [facility] L7000.0750on 08-19-2024 P ELASTASE,FECA 455 Normal >200 [facility] Comment on above: Result Comment: Resu lt Units: ug Elast./g Severe Pancreatic Insufficiency: <100 Moderate Pancreatic Insufficiency: 100 - 200 Normal: >200 Performed at: [facility] Lab[address] [id number] Film Flat Inspector: Derrick Franklin MD, Phone: [phone] Performed By: #### L 501.5200, M100.0605, L7000.0300, L500.4050, L100.0100, M100.6796 #### [facility] [address] [place], [place], [address] Fecal Fat, Qualitativeon FATS, NEUTRAL Normal Normal . [facility] Comment on above: Order Comment: Order Date: 08/11/24 Order Info: [id number] - CMP Order Info: [id number] - MG Result Comment: Norm al (<60 Droplets/HPF) Performed By: #### L 501.5200, M100.0605, L7000.0300, L500.4050, L100.0100, M100.6796 #### [facility] [address] [place], [address] FATS, TOTAL Normal Normal . [facility] [facility] Comment on above: Order Comment: Order Date: 08/11/24 Order Info: 0786-1 - CMP Order Info: 53457-5 - MG Result Comment: Norm al (<100 Droplets/HPF) Performed at: [address] [id number] Film Flat Inspector: Eric Dumont PhD, Phone: [phone] Performed By: #### L 501.5200, M100.0605, L7000.0300, L500.4050, L100.0100, M100.6796 #### [facility] [address] [place], [place], [id number] Fecal Fat, Qualitativeon FATS, NEUTRAL TNP Normal . [facility] Comment on above: Order Comment: Test( s) 927703-Vnzv, Neutral; 466337-Kwxo, Total was developed and its performance characteristics determined by [facility]. It has not been cleared or approved by the Food and Drug Administration. Result Comment: Test not performed. One specimen was submitted with requests for multiple tests. The requested testing requires a separate specimen for each test requested. Normal (<60 Droplets/HPF) Performed By: #### L 501.5200, M100.0605, L7000.0300, L500.4050, L100.0100, M100.6796 #### [facility] [address] [place], [place], [phone] (666) FATS, TOTAL TNP Normal . [facility] Comment on above: Order Comment: Test( s) 053819-Ntfs, Neutral; 603379-Zwic, Total was developed and its performance characteristics determined by [facility]. It has not been cleared or approved by the Food and Drug Administration. Result Comment: Test not performed Performed By: #### L 501.5200, M100.0605, L7000.0300, L500.4050, L100.0100, M100.6796 #### [facility] [address] [place], [place], [address] (373) FATS, NEUTRAL Normal [facility] Comment on above: Result Comment: REOR LAUREN Performed By: #### L 501.5200, M100.0605, L7000.0300, L500.4050, L100.0100, M100.6796 #### [facility] [address] [place], [address] FATS, TOTAL Normal [facility] Comment on above: Result Comment: REOR LAUREN Performed By: #### L 501.5200, M100.0605, L7000.0300, L500.4050, L100.0100, M100.6796 #### [facility] [address] [place], [address] L3410.9992on 08-16-2024 [facility]. COMMENT Normal . [facility] Comment on above: Order Comment: Order Date: 08/11/24 Order Info: 0786-1 - CMP Order Info: 13934-8 - MG Result Comment: Test Ordered: [id number] Stool Culture Salmonella/Shigella Screen Note: Final report Reference Range: . Result 1 Comment Reference Range: . No Salmonella or Shigella recovered. Campylobacter Culture Note: Final report Reference Range: . Result 1 Comment Reference Range: . No Campylobacter species isolated. E coli Shiga Toxin EIA Negative Reference Range: Negative Performed at: [address] [id number] Film Flat Inspector: Eric Dumont PhD, Phone: [phone] Performed By: #### L 501.5200, M100.0605, L7000.0300, L500.4050, L100.0100, M100.6796 #### [facility] [address] [place], [address] L7000.0750on 08-16-2024 P ELASTASE,FECA 743 Normal >200 [facility] Comment on above: Result Comment: Resu lt Units: ug Elast./g Severe Pancreatic Insufficiency: <100 Moderate Pancreatic Insufficiency: 100 - 200 Normal: >200 Performed at: [facility] [id number] Film Flat Inspector: Derrick Franklin MD, Phone: [phone] Performed By: #### L 501.5200, M100.0605, L7000.0300, L500.4050, L100.0100, M100.1096 #### [facility] [address] [place], [address] [facility] Cheston [facility] Ab[facility] Chest [facility] Imaging Services [address] [place] [address] [facility] Chest MR#: [id number] Acct: [id number] Name: Jose PIEDRA Rep #: [id number] : 1940 F 84 From: Emmanuel Prater MD PCP: Dr. Ronak Escalante MD Status: REG CLI Study: Acute [facility]en [facility] Chest Date of Exam: 08/11/24 Exam# [id number] Ordering Dr: Ronak Escalante MD PROCEDURE: ACUTE [...] 2. Mild constipation. 3. Cholelithiasis. Reading Location: [facility] CC: Dr. Ronak Escalante MD Pay Clerk: Signed Normal [facility] CBC W/Diff, Automatedon 06-0 Absolute Lymph 2.28 X10 3/uL Normal 0.83-4.51 [facility] Comment on above: Order Comment: Order Date: 08/11/24 Order Info: 0184-1 - CBCD Performed By: #### L 501.5200, M100.0605, L7000.0300, L500.4050, L100.0100, M100.6796 #### [facility] [address] [place], [address] Absolute Neut 3.1 X10 3/uL Normal 2.0-7.7 [facility] Comment on above: Order Comment: Order Date: 08/11/24 Order Info: 0184-1 - CBCD Performed By: #### L 501.5200, M100.0605, L7000.0300, L500.4050, L100.0100, M100.6796 #### [facility] [address] [place], [address] Basophils/100 WBC (Bld) 1.2 % High 0-1 [facility] Comment on above: Order Comment: Order Date: 08/11/24 Order Info: 0184-1 - CBCD Performed By: #### L 501.5200, M100.0605, L7000.0300, L500.4050, L100.0100, M100.6796 #### [facility] [address] [place], [address] Eosinophils/100 WBC (Bld) 7.2 % High 0-5 [facility] Comment on above: Order Comment: Order Date: 08/11/24 Order Info: 0184-1 - CBCD Performed By: #### L 501.5200, M100.0605, L7000.0300, L500.4050, L100.0100, M100.6796 #### [facility] [address] [place], [address] Erythrocyte distribution width (RBC) [Ratio] 15.3 % High 11.6-14.6 [facility] Comment on above: Order Comment: Order Date: 08/11/24 Order Info: 0184-1 - CBCD Performed By: #### L 501.5200, M100.0605, L7000.0300, L500.4050, L100.0100, M100.6796 #### [facility] [address] [place], [address] Hematocrit (Bld) [Volume fraction] 36.1 % Low 37-47 [facility] Comment on above: Order Comment: Order Date: 08/11/24 Order Info: 0184-1 - CBCD Performed By: #### L 501.5200, M100.0605, L7000.0300, L500.4050, L100.0100, M100.6796 #### [facility] [address] [place], [address] Hemoglobin (Bld) [Mass/Vol] 11.4 g/dL Low 12.0-15.0 [facility] Comment on above: Order Comment: Order Date: 08/11/24 Order Info: 0184-1 - CBCD Performed By: #### L 501.5200, M100.0605, L7000.0300, L500.4050, L100.0100, M100.6796 #### [facility] [address] [place], [address] IG% 0.200 Normal 0.0-0.9 [facility] Comment on above: Order Comment: Order Date: 08/11/24 Order Info: 0184-1 - CBCD Result Comment: IG% - Immature Granulocytes (promyelocytes, myelocytes and metamyelocytes) > 1% indicates that a LEFT SHIFT is Present. Performed By: #### L 501.5200, M100.0605, L7000.0300, L500.4050, L100.0100, M100.6796 #### [facility] [address] [place], [address] Lymphocytes/100 WBC (Bld) 34.9 % Normal 19-41 [facility] Comment on above: Order Comment: Order Date: 08/11/24 Order Info: 0184-1 - CBCD Performed By: #### L 501.5200, M100.0605, L7000.0300, L500.4050, L100.0100, M100.6796 #### [facility] [address] [place], [address] MCH (RBC) [Entitic mass] 28.4 pg Normal 27.0-32.0 [facility] Comment on above: Order Comment: Order Date: 08/11/24 Order Info: 0184- - CBCD Performed By: #### L 501.5200, M100.0605, L7000.0300, L500.4050, L100.0100, M100.6796 #### [facility] [address] [place], [address] MCHC (RBC) [Mass/Vol] 31.6 g/dL Low 32-36 [facility] Comment on above: Order Comment: Order Date: 08/11/24 Order Info: 0184- - CBCD Performed By: #### L 501.5200, M100.0605, L7000.0300, L500.4050, L100.0100, M100.6796 #### [facility] [address] [place], [address] MCV (RBC) [Entitic vol] 89.8 fL Normal 81-99 [facility] Comment on above: Order Comment: Order Date: 08/11/24 Order Info: 0184-1 - CBCD Performed By: #### L 501.5200, M100.0605, L7000.0300, L500.4050, L100.0100, M100.6796 #### [facility] [address] [place], [address] Monocytes/100 WBC (Bld) 8.6 % Normal 0-10 [facility] Comment on above: Order Comment: Order Date: 08/11/24 Order Info: 0184-1 - CBCD Performed By: #### L 501.5200, M100.0605, L7000.0300, L500.4050, L100.0100, M100.6796 #### [facility] [address] [facility] [place], [address] Neutrophils/100 WBC (Bld) 47.9 % Normal 47-70 [facility] Comment on above: Order Comment: Order Date: 08/11/24 Order Info: 0184-1 - CBCD Performed By: #### L 501.5200, M100.0605, L7000.0300, L500.4050, L100.0100, M100.6796 #### [facility] [address] [facility] [place], [address] Nucleated RBC (Bld) [#/Vol] 0 10*3/uL Normal 0-5 [facility] Comment on above: Order Comment: Order Date: 08/11/24 Order Info: 0184-1 - CBCD Performed By: #### L 501.5200, M100.0605, L7000.0300, L500.4050, L100.0100, M100.6796 #### [facility] [address] [facility] [place], [address] Platelet mean volume (Bld) [Entitic vol] 11.8 fL Normal 6.2-12.0 [facility] Comment on above: Order Comment: Order Date: 08/11/24 Order Info: 0184-1 - CBCD Performed By: #### L 501.5200, M100.0605, L7000.0300, L500.4050, L100.0100, M100.6796 #### [facility] [address] [facility] [place], [address] Platelets (Bld) [#/Vol] 224 10*3/uL Normal 150-450 [facility] Comment on above: Order Comment: Order Date: 08/11/24 Order Info: 0184-1 - CBCD Performed By: #### L 501.5200, M100.0605, L7000.0300, L500.4050, L100.0100, M100.6796 #### [facility] [address] [place], [address] RBC (Bld) [#/Vol] 4.02 10*6/uL Low 4.2-5.4 [facility] Comment on above: Order Comment: Order Date: 08/11/24 Order Info: 0184-1 - CBCD Performed By: #### L 501.5200, M100.0605, L7000.0300, L500.4050, L100.0100, M100.6796 #### [facility] [address] [facility] [place], [address] RDW SD 50.9 fl High 35.1-43.9 [facility] Comment on above: Order Comment: Order Date: 08/11/24 Order Info: 0184-1 - CBCD Performed By: #### L 501.5200, M100.0605, L7000.0300, L500.4050, L100.0100, M100.6796 #### [facility] [address] [facility] [place], [address] WBC (Bld) [#/Vol] 6.5 10*3/uL Normal 4.4-11.0 [facility] Comment on above: Order Comment: Order Date: 08/11/24 Order Info: 0184-1 - CBCD Performed By: #### L 501.5200, M100.0605, L7000.0300, L500.4050, L100.0100, M100.6796 #### [facility] [address] [place], [address] CDIFF (PCR)on 08-11-2024 CDIFF Order Date: 08/11/24 Order Info: 95825-3 - WBCST Order Info: 625-4 - CUST Order Info: 0038-2 - C DIFF Pending 027 027 NAP1-B1 Presumptive Negative *for epidemiolologic???use C. Diff PCR Negative- No toxigenic C. Diff Detected Normal [facility] Comment on above: Performed By: #### L 501.5200, M100.0605, L7000.0300, L500.4050, L100.0100, M100.6796 #### [facility] [address] [place], [address] Comprehensive Metabolic Prof vton 08-11-2024 Albumin [Mass/Vol] 4.0 g/dL Normal 3.4-4.8 [facility] Comment on above: Order Comment: Order Date: 08/11/24 Order Info: 0786-1 - CMP Order Info: 42863-9 - MG Performed By: #### L 501.5200, M100.0605, L7000.0300, L500.4050, L100.0100, M100.6796 #### [facility] [address] [place], [place], [id number] Albumin/Globulin [Mass ratio] 1.4 {ratio} Normal 0.9-2.4 [facility] Comment on above: Order Comment: Order Date: 08/11/24 Order Info: 0786-1 - CMP Order Info: 37600-1 - MG Performed By: #### L 501.5200, M100.0605, L7000.0300, L500.4050, L100.0100, M100.6796 #### [facility] [address] [place], [address] ALK PHOS 77 U/L Normal 35-104 [facility] Comment on above: Order Comment: Order Date: 08/11/24 Order Info: 0786-1 - CMP Order Info: 36621-2 - MG Performed By: #### L 501.5200, M100.0605, L7000.0300, L500.4050, L100.0100, M100.6796 #### [facility] [address] [place], [address] ALT [Catalytic activity/Vol] 22 U/L Normal <=34 [facility] Comment on above: Order Comment: Order Date: 08/11/24 Order Info: 0786-1 - CMP Order Info: 15547-9 - MG Performed By: #### L 501.5200, M100.0605, L7000.0300, L500.4050, L100.0100, M100.6796 #### [facility] [address] [place], [address] AST [Catalytic activity/Vol] 26 U/L Normal <=31 [facility] Comment on above: Order Comment: Order Date: 08/11/24 Order Info: 0786-1 - CMP Order Info: 12678-6 - MG Performed By: #### L 501.5200, M100.0605, L7000.0300, L500.4050, L100.0100, M100.6796 #### [facility] [address] [place], [place], [address] Bilirubin [Mass/Vol] 0.40 mg/dL Normal 0.00-1.30 [facility] Comment on above: Order Comment: Order Date: 08/11/24 Order Info: 0786-1 - CMP Order Info: 84898-8 - MG Performed By: #### L 501.5200, M100.0605, L7000.0300, L500.4050, L100.0100, M100.6796 #### [facility] [address] [place], [address] BUN/CRE 12.2 RATIO Normal 10-20 [facility] Comment on above: Order Comment: Order Date: 08/11/24 Order Info: 0786-1 - CMP Order Info: 92727-1 - MG Performed By: #### L 501.5200, M100.0605, L7000.0300, L500.4050, L100.0100, M100.6796 #### [facility] [address] [place], [address] Calcium [Mass/Vol] 9.5 mg/dL Normal 7.6-11.0 [facility] Comment on above: Order Comment: Order Date: 08/11/24 Order Info: 0786-1 - CMP Order Info: [id number] - MG Performed By: #### L 501.5200, M100.0605, L7000.0300, L500.4050, L100.0100, M100.6796 #### [facility] [address] [place], [address] Chloride [Moles/Vol] 101 mmol/L Normal 98-108 [facility] Comment on above: Order Comment: Order Date: 08/11/24 Order Info: 0786-1 - CMP Order Info: [id number] - MG Performed By: #### L 501.5200, M100.0605, L7000.0300, L500.4050, L100.0100, M100.6796 #### [facility] [address] [place], [address] CO2 [Moles/Vol] 24.4 mmol/L Normal 21.0-32.0 [facility] Comment on above: Order Comment: Order Date: 08/11/24 Order Info: 0786-1 - CMP Order Info: 19982-1 - MG Performed By: #### L 501.5200, M100.0605, L7000.0300, L500.4050, L100.0100, M100.6796 #### [facility] [address] [place], [address] Creatinine [Mass/Vol] 0.73 mg/dL Normal 0.70-1.20 [facility] Comment on above: Order Comment: Order Date: 08/11/24 Order Info: 0786-1 - CMP Order Info: 30173-9 - MG Performed By: #### L 501.5200, M100.0605, L7000.0300, L500.4050, L100.0100, M100.6796 #### [facility] [address] [place], [address] GAP 12 Normal 5-15 [facility] Comment on above: Order Comment: Order Date: 08/11/24 Order Info: 0786-1 - CMP Order Info: [id number] - MG Performed By: #### L 501.5200, M100.0605, L7000.0300, L500.4050, L100.0100, M100.6796 #### [facility] [address] [place], [address] GFR/1.73 sq M.predicted among non-blacks MDRD (S/P/Bld) [Vol rate/Area] 80 mL/min/{1.73_m2} Normal >60 [facility] Comment on above: Order Comment: Order Date: 08/11/24 Order Info: 0786-1 - CMP Order Info: 56068-4 - MG Result Comment: mL/m in/1.73m2 CKD-EPI Creatinine Equation (2020) Performed By: #### L 501.5200, M100.0605, L7000.0300, L500.4050, L100.0100, M100.6796 #### [facility] [address] [place], [address] Globulin (S) [Mass/Vol] 2.8 g/dL Normal 2.2-4.2 [facility] Comment on above: Order Comment: Order Date: 08/11/24 Order Info: 0786-1 - [facility] Order Info: 36797-2 - MG Performed By: #### L 501.5200, M100.0605, L7000.0300, L500.4050, L100.0100, M100.6796 #### [facility] [address] [place], [address] Glucose [Mass/Vol] 142 mg/dL High 70-99 [facility] Comment on above: Order Comment: Order Date: 08/11/24 Order Info: 0786-1 - CMP Order Info: 00058-1 - MG Performed By: #### L 501.5200, M100.0605, L7000.0300, L500.4050, L100.0100, M100.6796 #### [facility] [address] [place], [address] Potassium [Moles/Vol] 4.1 mmol/L Normal 3.3-5.1 [facility] Comment on above: Order Comment: Order Date: 08/11/24 Order Info: 0786-1 - CMP Order Info: 82443-5 - MG Performed By: #### L 501.5200, M100.0605, L7000.0300, L500.4050, L100.0100, M100.6796 #### [facility] [address] [place], [address] Sodium [Moles/Vol] 137 mmol/L Normal 133-145 [facility] Comment on above: Order Comment: Order Date: 08/11/24 Order Info: 0786-1 - CMP Order Info: 26887-0 - MG Performed By: #### L 501.5200, M100.0605, L7000.0300, L500.4050, L100.0100, M100.6796 #### [facility] [address] [place], [address] T PROT 6.7 g/dL Normal 5.9-8.4 [facility] Comment on above: Order Comment: Order Date: 08/11/24 Order Info: 0786-1 - CMP Order Info: 53193-6 - MG Performed By: #### L 501.5200, M100.0605, L7000.0300, L500.4050, L100.0100, M100.6796 #### [facility] [address] [place], [address] Urea nitrogen [Mass/Vol] 9 mg/dL Normal 4-19 [facility] Comment on above: Order Comment: Order Date: 08/11/24 Order Info: 0786-1 - CMP Order Info: [id number] - MG Performed By: #### L 501.5200, M100.0605, L7000.0300, L500.4050, L100.0100, M100.6796 #### [facility] [address] [place], [place], [address] Magnesiumon 08-11-2024 Magnesium [Mass/Vol] 1.8 mg/dL Normal 1.5-2.2 [facility] Comment on above: Order Comment: Order Date: 08/11/24 Order Info: 0786-1 - CMP Order Info: - MG Performed By: #### L 501.5200, M100.0605, L7000.0300, L500.4050, L100.0100, M100.6796 #### [facility] [address] [place], [place], [address] Stool Lactoferrin/WBCon - WBCST Order Date: 08/11/24 Order Info: [id number] - WBCST Order Info: 625-4 - CUST Order Info: 0038-2 - C DIFF Normal Reference Range = Negative Fecal WBC Lactoferrin Negative: No Fecal WBC Lactoferrin present Normal [facility] Comment on above: Performed By: #### L 501.5200, M100.0605, L7000.0300, L500.4050, L100.0100, M100.6796 #### [facility] [address] [place], [place], [address] CBC-Complete Blood Cnt No Di ffon 07-01-2024 Erythrocyte distribution width (RBC) [Ratio] 16.6 % High 11.6-14.6 [facility] Comment on above: Performed By: #### L 501.5200, M100.0605, L7000.0300, L500.4050, L100.0100, M100.6796 #### [facility] [address] [place], [address] Hematocrit (Bld) [Volume fraction] 29.1 % Low 37-47 [facility] Comment on above: Performed By: #### L 501.5200, M100.0605, L7000.0300, L500.4050, L100.0100, M100.6796 #### [facility] [address] [place], [address] Hemoglobin (Bld) [Mass/Vol] 9.5 g/dL Low 12.0-15.0 [facility] Comment on above: Performed By: #### L 501.5200, M100.0605, L7000.0300, L500.4050, L100.0100, M100.6796 #### [facility] [address] [facility] [place], [address] MCH (RBC) [Entitic mass] 29.0 pg Normal 27.0-32.0 [facility] Comment on above: Performed By: #### L 501.5200, M100.0605, L7000.0300, L500.4050, L100.0100, M100.6796 #### [facility] [address] [place] [place], [address] MCHC (RBC) [Mass/Vol] 32.6 g/dL Normal 32-36 [facility] Comment on above: Performed By: #### L 501.5200, M100.0605, L7000.0300, L500.4050, L100.0100, M100.6796 #### [facility] [address] [place], [address] MCV (RBC) [Entitic vol] 88.7 fL Normal 81-99 [facility] Comment on above: Performed By: #### L 501.5200, M100.0605, L7000.0300, L500.4050, L100.0100, M100.6796 #### [facility] [address] [place], [address] Platelet mean volume (Bld) [Entitic vol] 11.2 fL Normal 6.2-12.0 [facility] Comment on above: Performed By: #### L 501.5200, M100.0605, L7000.0300, L500.4050, L100.0100, M100.6796 #### [facility] [address] [place], [address] Platelets (Bld) [#/Vol] 300 10*3/uL Normal 150-450 [facility] Comment on above: Performed By: #### L 501.5200, M100.0605, L7000.0300, L500.4050, L100.0100, M100.6796 #### [facility] [address] [place], [address] RBC (Bld) [#/Vol] 3.28 10*6/uL Low 4.2-5.4 [facility] Comment on above: Performed By: #### L 501.5200, M100.0605, L7000.0300, L500.4050, L100.0100, M100.6796 #### [facility] [address] [place], [address] RDW SD 54.1 fl High 35.1-43.9 [facility] Comment on above: Performed By: #### L 501.5200, M100.0605, L7000.0300, L500.4050, L100.0100, M100.6796 #### [facility] [address] [place], [address] WBC (Bld) [#/Vol] 15.3 10*3/uL High 4.4-11.0 [facility] Comment on above: Performed By: #### L 501.5200, M100.0605, L7000.0300, L500.4050, L100.0100, M100.6796 #### [facility] [address] [place], [address] Basic Metabolic Profile (BMP )on 06-23-2024 BUN/CRE 22.8 RATIO High 10-20 [facility] Comment on above: Performed By: #### L 501.5200, M100.0605, L7000.0300, L500.4050, L100.0100, M100.6796 #### [facility] [address] [place], [address] Calcium [Mass/Vol] 8.8 mg/dL Normal 7.6-11.0 [facility] Comment on above: Performed By: #### L 501.5200, M100.0605, L7000.0300, L500.4050, L100.0100, M100.6796 #### [facility] [address] [place], [address] Chloride [Moles/Vol] 97 mmol/L Low 98-108 [facility] Comment on above: Performed By: #### L 501.5200, M100.0605, L7000.0300, L500.4050, L100.0100, M100.6796 #### [facility] [address] [place], [address] CO2 [Moles/Vol] 26.1 mmol/L Normal 21.0-32.0 [facility] Comment on above: Performed By: #### L 501.5200, M100.0605, L7000.0300, L500.4050, L100.0100, M100.6796 #### [facility] [address] [place], [address] Creatinine [Mass/Vol] 0.73 mg/dL Normal 0.70-1.20 [facility] Comment on above: Performed By: #### L 501.5200, M100.0605, L7000.0300, L500.4050, L100.0100, M100.6796 #### [facility] [address] [place], [address] ECRCL 49.33 ml/min Low 50-250 [facility] Comment on above: Performed By: #### L 501.5200, M100.0605, L7000.0300, L500.4050, L100.0100, M100.6796 #### [facility] [address] [place], [address] GAP 8 Normal 5-15 [facility] Comment on above: Performed By: #### L 501.5200, M100.0605, L7000.0300, L500.4050, L100.0100, M100.6796 #### [facility] [address] [place], [address] GFR/1.73 sq M.predicted among non-blacks MDRD (S/P/Bld) [Vol rate/Area] 81 mL/min/{1.73_m2} Normal >60 [facility] Comment on above: Result Comment: mL/m in/1.73m2 CKD-EPI Creatinine Equation (2020) Performed By: #### L 501.5200, M100.0605, L7000.0300, L500.4050, L100.0100, M100.6796 #### [facility] [address] [place], [address] Glucose [Mass/Vol] 169 mg/dL High 70-99 [facility] Comment on above: Performed By: #### L 501.5200, M100.0605, L7000.0300, L500.4050, L100.0100, M100.6796 #### [facility] [address] [place], [address] Potassium [Moles/Vol] 4.0 mmol/L Normal 3.3-5.1 [facility] Comment on above: Performed By: #### L 501.5200, M100.0605, L7000.0300, L500.4050, L100.0100, M100.6796 #### [facility] [address] [place], [address] Sodium [Moles/Vol] 131 mmol/L Low 133-145 [facility] Comment on above: Performed By: #### L 501.5200, M100.0605, L7000.0300, L500.4050, L100.0100, M100.6796 #### [facility] [address] [place], [address] Urea nitrogen [Mass/Vol] 17 mg/dL Normal 4-19 [facility] Comment on above: Performed By: #### L 501.5200, M100.0605, L7000.0300, L500.4050, L100.0100, M100.6796 #### [facility] [address] [place], [address] Bedside Glucoseon 06-23-2024 FINGERSTICK GLU 188 mg/dL High 74-106 [facility] Comment on above: Result Comment: SHADIA GEMENT OF PATIENT CARE PER NURSING PROTOCOL Performed By: #### L 501.5200, M100.0605, L7000.0300, L500.4050, L100.0100, M100.6796 #### [facility] [address] [place], [address] FINGERSTICK GLU 191 mg/dL High 74-106 [facility] Comment on above: Result Comment: SHADIA GEMENT OF PATIENT CARE PER NURSING PROTOCOL Performed By: #### L 501.5200, M100.0605, L7000.0300, L500.4050, L100.0100, M100.6796 #### [facility] [address] [place], [address] Discharge Instructionon 06-08 Discharge Instruction [facility] Medical Records Department [address] [place] [address] Instructions for Home/Discharge Instructions 06/23/24 1013 MR#: [id number] Acct: [id number] Name: Jose PIEDRA Rep #: [id number] : 1940 84 From: Cahrly GARAY PABrittanyC PCP: Dr. Ronak Escalante MD Status:ADM ALBERTA [...] June 26, 2024) Additional Dressing/Incision Instructions:: Follow [facility] Post-op Instructions. Once postoperative dressing has [...] Discontinued aspi (more content not included)... Normal [facility] Basic Metabolic Profile (BMP )on 06-22-2024 BUN/CRE 14.8 RATIO Normal 10-20 [facility] Comment on above: Performed By: #### L 501.5200, M100.0605, L7000.0300, L500.4050, L100.0100, M100.6796 #### [facility] [address] [place], [address] Calcium [Mass/Vol] 8.9 mg/dL Normal 7.6-11.0 [facility] Comment on above: Performed By: #### L 501.5200, M100.0605, L7000.0300, L500.4050, L100.0100, M100.6796 #### [facility] [address] [place], [address] Chloride [Moles/Vol] 98 mmol/L Normal 98-108 [facility] Comment on above: Performed By: #### L 501.5200, M100.0605, L7000.0300, L500.4050, L100.0100, M100.6796 #### [facility] [address] [place], [address] CO2 [Moles/Vol] 25.1 mmol/L Normal 21.0-32.0 [facility] Comment on above: Performed By: #### L 501.5200, M100.0605, L7000.0300, L500.4050, L100.0100, M100.6796 #### [facility] [address] [place], [address] Creatinine [Mass/Vol] 0.80 mg/dL Normal 0.70-1.20 [facility] Comment on above: Performed By: #### L 501.5200, M100.0605, L7000.0300, L500.4050, L100.0100, M100.6796 #### [facility] [address] [place], [address] ECRCL 49.33 ml/min Low 50-250 [facility] Comment on above: Performed By: #### L 501.5200, M100.0605, L7000.0300, L500.4050, L100.0100, M100.6796 #### [facility] [address] [place], [address] GAP 10 Normal 5-15 [facility] Comment on above: Performed By: #### L 501.5200, M100.0605, L7000.0300, L500.4050, L100.0100, M100.6796 #### [facility] [address] [place], [address] GFR/1.73 sq M.predicted among non-blacks MDRD (S/P/Bld) [Vol rate/Area] 72 mL/min/{1.73_m2} Normal >60 [facility] Comment on above: Result Comment: mL/m in/1.73m2 CKD-EPI Creatinine Equation (2020) Performed By: #### L 501.5200, M100.0605, L7000.0300, L500.4050, L100.0100, M100.6796 #### [facility] [address] [place], [address] Glucose [Mass/Vol] 180 mg/dL High 70-99 [facility] Comment on above: Performed By: #### L 501.5200, M100.0605, L7000.0300, L500.4050, L100.0100, M100.6796 #### [facility] [address] [place], [address] Potassium [Moles/Vol] 4.3 mmol/L Normal 3.3-5.1 [facility] Comment on above: Performed By: #### L 501.5200, M100.0605, L7000.0300, L500.4050, L100.0100, M100.6796 #### [facility] [address] [place], [address] Sodium [Moles/Vol] 133 mmol/L Normal 133-145 [facility] Comment on above: Performed By: #### L 501.5200, M100.0605, L7000.0300, L500.4050, L100.0100, M100.6796 #### [facility] [address] [place], [address] Urea nitrogen [Mass/Vol] 12 mg/dL Normal 4-19 [facility] Comment on above: Performed By: #### L 501.5200, M100.0605, L7000.0300, L500.4050, L100.0100, M100.6796 #### [facility] [address] [place], [address] Bedside Glucoseon 06-22-2024 FINGERSTICK GLU 196 mg/dL High 74-106 [facility] Comment on above: Result Comment: SHADIA BALNCO OF PATIENT CARE PER NURSING PROTOCOL Performed By: #### L 501.5200, M100.0605, L7000.0300, L500.4050, L100.0100, M100.6796 #### [facility] [address] [place], [address] FINGERSTICK GLU 255 mg/dL High 74-106 [facility] Comment on above: Result Comment: SHADIA BLANCO OF PATIENT CARE PER NURSING PROTOCOL Performed By: #### L 501.5200, M100.0605, L7000.0300, L500.4050, L100.0100, M100.6796 #### [facility] [address] [place], [address] CBC-Complete Blood Cnt No Di ffon 06-22-2024 Erythrocyte distribution width (RBC) [Ratio] 16.2 % High 11.6-14.6 [facility] Comment on above: Performed By: #### L 501.5200, M100.0605, L7000.0300, L500.4050, L100.0100, M100.6796 #### [facility] [address] [place], [address] Hematocrit (Bld) [Volume fraction] 32.2 % Low 37-47 [facility] Comment on above: Performed By: #### L 501.5200, M100.0605, L7000.0300, L500.4050, L100.0100, M100.6796 #### [facility] [address] [place], [address] Hemoglobin (Bld) [Mass/Vol] 10.4 g/dL Low 12.0-15.0 [facility] Comment on above: Performed By: #### L 501.5200, M100.0605, L7000.0300, L500.4050, L100.0100, M100.6796 #### [facility] [address] [place], [address] MCH (RBC) [Entitic mass] 28.3 pg Normal 27.0-32.0 [facility] Comment on above: Performed By: #### L 501.5200, M100.0605, L7000.0300, L500.4050, L100.0100, M100.6796 #### [facility] [address] [place], [address] MCHC (RBC) [Mass/Vol] 32.3 g/dL Normal 32-36 [facility] Comment on above: Performed By: #### L 501.5200, M100.0605, L7000.0300, L500.4050, L100.0100, M100.6796 #### [facility] [address] [place], [address] MCV (RBC) [Entitic vol] 87.7 fL Normal 81-99 [facility] Comment on above: Performed By: #### L 501.5200, M100.0605, L7000.0300, L500.4050, L100.0100, M100.6796 #### [facility] [address] [place], [address] Platelet mean volume (Bld) [Entitic vol] 11.8 fL Normal 6.2-12.0 [facility] Comment on above: Performed By: #### L 501.5200, M100.0605, L7000.0300, L500.4050, L100.0100, M100.6796 #### [facility] [address] [place], [address] Platelets (Bld) [#/Vol] 177 10*3/uL Normal 150-450 [facility] Comment on above: Performed By: #### L 501.5200, M100.0605, L7000.0300, L500.4050, L100.0100, M100.6796 #### [facility] [address] [place], [address] RBC (Bld) [#/Vol] 3.67 10*6/uL Low 4.2-5.4 [facility] Comment on above: Performed By: #### L 501.5200, M100.0605, L7000.0300, L500.4050, L100.0100, M100.6796 #### [facility] [address] [place], [address] RDW SD 52.2 fl High 35.1-43.9 [facility] Comment on above: Performed By: #### L 501.5200, M100.0605, L7000.0300, L500.4050, L100.0100, M100.6796 #### [facility] [address] [place], [address] WBC (Bld) [#/Vol] 9.5 10*3/uL Normal 4.4-11.0 [facility] Comment on above: Performed By: #### L 501.5200, M100.0605, L7000.0300, L500.4050, L100.0100, M100.6796 #### [facility] [address] [place], [address] Bedside Glucoseon 06-21-2024 FINGERSTICK GLU 183 mg/dL High 74-106 [facility] Comment on above: Result Comment: SHADIA GEMENT OF PATIENT CARE PER NURSING PROTOCOL Performed By: #### L 501.5200, M100.0605, L7000.0300, L500.4050, L100.0100, M100.6796 #### [facility] [address] [place], [address] FINGERSTICK GLU 253 mg/dL High 74-106 [facility] Comment on above: Result Comment: SHADIA GEMENT OF PATIENT CARE PER NURSING PROTOCOL Performed By: #### L 501.080 #### [facility] [address] [place], [address] FINGERSTICK GLU 295 mg/dL High 74-106 [facility] Comment on above: Result Comment: HSADIA GEMENT OF PATIENT CARE PER NURSING PROTOCOL Performed By: #### L 501.5200, M100.0605, L7000.0300, L500.4050, L100.0100, M100.6796 #### [facility] [address] [place], [place], [address] FINGERSTICK GLU 332 mg/dL High 74-106 [facility] Comment on above: Result Comment: SHADIA GEMSAM OF PATIENT CARE PER NURSING PROTOCOL Performed By: #### L 501.5200, M100.0605, L7000.0300, L500.4050, L100.0100, M100.6796 #### [facility] [address] [place], [place], [address] Decalcification bone/plaqueo n 06-21-2024 Decalcification bone/plaque ----- Patient Age/Sex Location Account Attending Physician ----- Jose PIEDRA 84/F MS3 [id number] Dr. Sheridan Nowak MD ----- Specimen: [id number] Received: 06/21/24 Status: TAVIA Bruce Num: [id number] Spec Type: HUMERUS Subm Dr: Dr. Sheridan [...] smooth eburnation. Sectioning reveals firm, red-hunter surfaces. Soft Sugar Operator Head sections are submitted in A1 following decalcification. [facility] 06-21-2024 CPT:36330,44540 ----- Patient Age/Sex Location Account Attending Physician ----- Jose PIEDRA 84/F MS3 [id number] Dr. Sheridan Nowak MD ----- Signed (signature on file) Dr. Miriam Chan MD 07/08/24 0842 ----- Normal [facility] Comment on above: Performed By: #### P DEC ####[facility] [id number] [facility] [place], [address] MR/POSTOP.ANEon 06-21-2024 MR/POSTOP.[facility] Medical Records Department [address] [place] [address] Anesthesia Postop Eval I 06/21/24 1112 MR#: [id number] Acct: [id number] Name: Jose PIEDRA Rep #: [id number] : 1940 84 From: Gail Baker WELDING PROCESS ENGINEER PCP: Dr. Ronak Escalante MD Status:REG SDC Y Race: C Location: [place] [address] Anesthesia: Postop Eval I Current Vital Signs [...] 1 completed: Yes 06/21/24 1113 Date Gail DeForeest WELDING PROCESS ENGINEER Cosigner Signature: Date CC: Signed Normal [facility] MR/IRGYXAMH2ha 06-21-2024 MR/POSTOPAN2 [facility] Medical Records Department [address] [place] [address] Anesthesia Postop Eval II 06/21/24 1146 MR#: [id number] Acct: [id number] Name: Jose PIEDRA Rep #: [id number] : 1940 84 From: Michael Gotti MD PCP: Dr. Ronak Escalante MD [place] [facility] [place] C Location: [address] Anesthesia Postop Eval I Sum Postop Eval Completion status Anesthesia document: Postop Eval 1 completed: Yes Anesthesia Postop Eval I Summary Anesthesia Postop Eval I Summary: Anesthesia Postop Eval I: Assessment Summary Airway patent Yes 06/21/24 11:13 WELDING PROCESS ENGINEER.JDEF Spontaneous unlabored Yes 06/21/24 11:13 WELDING PROCESS ENGINEER.JDEF respirations Mental status Awake 06/21/24 11:13 WELDING PROCESS ENGINEER.JDEF nausea No 06/21/24 11:13 WELDING PROCESS ENGINEER.JDEF Vomiting No 06/21/24 11:13 WELDING PROCESS ENGINEER.JDEF Anesthesia Postop Eval I: Fluid Summary Crystalloid volume administer 800 06/21/24 11:13 WELDING PROCESS ENGINEER.JDEF (ml) Colloids volume administered ( ml) Blood Product volume administered (ml) Total IV fluid infused 800 06/21/24 11:13 WELDING PROCESS ENGINEER.JDEF Anesthesia Postop Eval I: Summary Notes Anesthesia Complication No 06/21/24 11:13 WELDING PROCESS ENGINEER.JDEF Anesthesia Complication Comment: Post-operative progress note Anesthesia: Postop Eval II Evaluation Mental status: Awake Pain Level: 2 nausea: No Vomiting: No 06/21/24 1146 Date Michael Ojeda Signature: Date CC: Signed Normal [facility] Operative Reporton 5 Operative Report [facility] Medical Records Department [address] [facility] [place] [address] Operative Report 06/21/24 1034 MR#: [id number] Acct: [id number] Name: Jose PIEDRA Rep #: [id number] : 1940 84 From: Sheridan Nowak MD PCP: Dr. 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 They were important in appropriate retraction during the case, and protectio) Additional mechanic's assistant?: Yes Additional Wool Hat Hydraulicker #2: Rhina Aguayo Tasks completed by mechanic's assistant #2: Other (Positioning, opening) Additional mechanic's assistant?: No Type of Anesthesia: General RN [...] The humeral (more content not included)... Normal [facility] Shoulder min 2 Viewson 06-21 Shoulder min 2 Views [facility] Imaging Services [address] [place], [place] [id number] Shoulder min 2 Views MR#: [id number] Acct: [id number] Name: Jose PIEDRA Rep #: [id number] : 1940 F 84 From: Girish Polanco MD PCP: Dr. Ronak Escalante MD Status: [facility] Study: Shoulder min 2 Views Date of Exam: 06/21/24 Exam# [id number] Ordering Dr: Sheridan Nowak MD PROCEDURE: SHOULDER MIN 2 VIEWS 06/21/2024 REASON FOR EXAM: POST-OP TECHNIQUE: 2 view(s) of the left shoulder COMPARISON: None FINDINGS: Bones: Old distal clavicle fracture. No acute fracture or dislocation. Joints: Reverse shoulder arthroplasty appears aligned. Soft tissues: No unexpected radiopaque foreign body. RAD/Shoulder min 2 Views IMPRESSION: Expected postoperative appearance of reverse shoulder arthroplasty. Reading [facility] CC: Dr. Ronak Escalante MD; Dr. Sheridan Nowak MD Pay Clerk: Signed Normal [facility] MR/on 06-14-2024 [facility] [address], [address] [place] [address] OFFICE VISIT Date of Service: 06/14/24 MR#: [id number] Acct: [id number] Name: Jose PIEDRA Rep #: [id number] : 1940 Provider: Dr. Sheridan Lima se, DO Age/Sex: 84/F Location: [facility] [place]BP Status: Signed Intake Vital Signs 03/18/24 08:30 [...] or [facility]. Has not been going to worship as she doesn't feel comfrotable around a [...] and possib (more content not included)... Normal [facility] MRSA/SAID NASAL SCREENon MRSA+SAID SCRN Reason for Exam: PRE OP MRSA MRSA Negative S. AUREUS S. aureus PositiveA Normal [facility] Comment on above: Performed By: #### M 100.651 ####[facility] [address] [place], [place], [address] MR/PATShanitaANEon 05-31-2024 MR/PAT.[facility] Medical Records Department [address] [place] [address] PAT - Anesthesia 05/31/24 1517 MR#: [id number] Acct: [id number] Name: Jose PIEDRA Rep #: [id number] : 1940 84 From: Wilder Mcgovern MD PCP: Dr. Ronak Escalante MD [place] [facility] [place]: C [place] [facility] [place] Pre-Assessment Diagnosis/Proposed Procedure Planned Operative Procedure(s): (R) RIGHT REVERSE TOTAL SHOULDER ARTHROPLASTY, ERAS Anesthesia History Anesthesia History - construction representative: Anesthesia History - construction representative Hx Hospitalization No 05/31/24 11:07 Any Problems [...] take am of surgery PONV PONV - construction representative: PONV - construction representative Female Yes 05/31/24 11:07 HX of Motion [...] 03/18/24 08:30 Respiratory Assessment Respiratory Assessment - construction representative: Respiratory Tract Infection Hx - construction representative Hx Respiratory Tract Infection No 05/31/24 11:07 STOP Sleep Apnea STOP Sleep Apnea - construction representative: STOP Sleep Apnea - construction representative Hx Hypertension No 05/31/24 11:07 Hx Sleep [...] Tobacco Use History Tobacco Use History - construction representative: Tobacco Use History - construction representative Tobacco Use Smoking Status Never smoker 05/31/24 11:07 Hx Tobacco Use No 05/31/24 11:07 Years Smoking Packs Smoked per Day Smoking Cessation Date was within the last 15 years Hx Smoking Cessation Date Hx Smoking Cessation Counseling Hematologic Medial History Hematologic Hx - construction representative: Hematologic Medical Hx - rn clinical Hx of Blood Transfusion No 05/31/24 11:07 Hx of Transfusion in last 3 No 05/31/24 11:07 Months Date of Last Transfusion (if within last 3 months) Ever experience any problems No 05/31/24 11:07 with transfusion(s)? Specify any problems Hx of Preganancy in last 3 No 05/31/24 11:07 Months Nurse Filling Out Transfusion JZOLLINGE 05/31/24 11:07 Questions: Date: 05/31/24 05/31/24 11:07 Time: 11:14 03/24/25 11:07 Patient unable to answer at this time (ie. confused, unrespo /Reproduction History /Reproductive History - construction representative: /Reproductive Hx- construction representative Hx Now No 05/31/24 11:07 Gestational Age (in weeks): EDC: Hx Hx Para Hx Section SAB No 05/31/24 11:07 [facility] Medical History (Updated 05/31/24 @ 11:07 by [...] mg tablet (more content not included)... Normal [facility] Magnesiumon 05-31-2024 Magnesium [Mass/Vol] 1.7 mg/dL Normal 1.5-2.2 [facility] Comment on above: Performed By: #### L 501.5200 ####[facility] [id number] [place], [place], [address] Ferritinon 05-22-2024 Ferritin [Mass/Vol] 22 ng/mL Normal 22-378 [facility] Comment on above: Order Comment: Order Date: 08/11/24 Order Info: [id number] - CMP Order Info: [id number] - MG Performed By: #### L 501.5200, M100.0605, L7000.0300, L500.4050, L100.0100, M100.6796 #### [facility] [address] [place], [place], [address] Iron+Iron Binding Capacityon 05-22-2024 Iron [Mass/Vol] 40 ug/dL Low 50-170 [facility] Comment on above: Order Comment: Order Date: 08/11/24 Order Info: [id number] - CMP Order Info: [id number] - MG Performed By: #### L 501.5200, M100.0605, L7000.0300, L500.4050, L100.0100, M100.6796 #### [facility] [address] [place], [address] IRON SATURATION 10.0 Low 13-59 [facility] Comment on above: Order Comment: Order Date: 08/11/24 Order Info: [id number] - CMP Order Info: [id number] - MG Performed By: #### L 501.5200, M100.0605, L7000.0300, L500.4050, L100.0100, M100.6796 #### [facility] [address] [place], [place], [address] TIBC 383 ug/dL Normal 250-450 [facility] Comment on above: Order Comment: Order Date: 08/11/24 Order Info: [id number] - CMP Order Info: [id number] - MG Performed By: #### L 501.5200, M100.0605, L7000.0300, L500.4050, L100.0100, M100.6796 #### [facility] [address] [place], [address] UIBC 343 ug/dL Normal 228-428 [facility] Comment on above: Order Comment: Order Date: 08/11/24 Order Info: [id number] - CMP Order Info: [id number] - MG Performed By: #### L 501.5200, M100.0605, L7000.0300, L500.4050, L100.0100, M100.6796 #### [facility] [address] [place], [address] CBC W/Diff, Automatedon 05-08 Absolute Lymph 3.14 X10 3/uL Normal 0.83-4.51 [facility] Comment on above: Order Comment: Order Date: 05/20/24Order Info: [id number] - CBCD Performed By: #### L 100.0100, L500.4050 ####[facility] [address] [place], [address] Absolute Neut 3.8 X10 3/uL Normal 2.0-7.7 [facility] Comment on above: Order Comment: Order Date: 05/20/24Order Info: [id number] - CBCD Performed By: #### L 100.0100, L500.4050 ####[facility] [address] [place], [address] Basophils/100 WBC (Bld) 0.9 % Normal 0-1 [facility] Comment on above: Order Comment: Order Date: 05/20/24Order Info: 0184-1 - CBCD Performed By: #### L 100.0100, L500.4050 ####[facility] [address] [place], [address] Eosinophils/100 WBC (Bld) 3.8 % Normal 0-5 [facility] Comment on above: Order Comment: Order Date: 05/20/24Order Info: 0184-1 - CBCD Performed By: #### L 100.0100, L500.4050 ####[facility] [address] [place], [address] Erythrocyte distribution width (RBC) [Ratio] 14.6 % Normal 11.6-14.6 [facility] Comment on above: Order Comment: Order Date: 05/20/24Order Info: 0184-1 - CBCD Performed By: #### L 100.0100, L500.4050 ####[facility] [address] [place], [address] Hematocrit (Bld) [Volume fraction] 33.9 % Low 37-47 [facility] Comment on above: Order Comment: Order Date: 05/20/24Order Info: 018- - CBCD Performed By: #### L 100.0100, L500.4050 ####[facility] [address] [place], [address] Hemoglobin (Bld) [Mass/Vol] 10.9 g/dL Low 12.0-15.0 [facility] Comment on above: Order Comment: Order Date: 05/20/24Order Info: 183- - CBCD Performed By: #### L 100.0100, L500.4050 ####[facility] [address] [place], [address] IG% 0.100 Normal 0.0-0.9 [facility] Comment on above: Order Comment: Order Date: 05/20/24Order Info: 183- - CBCD Result Comment: IG% - Immature Granulocytes (promyelocytes, myelocytes and metamyelocytes) > 1% indicates that a LEFT SHIFT is Present. Performed By: #### L 100.0100, L500.4050 ####[facility] [address] [place], [address] Lymphocytes/100 WBC (Bld) 39.7 % Normal 19-41 [facility] Comment on above: Order Comment: Order Date: 05/20/24Order Info: 018- - CBCD Performed By: #### L 100.0100, L500.4050 ####[facility] [address] [place], [address] MCH (RBC) [Entitic mass] 27.3 pg Normal 27.0-32.0 [facility] Comment on above: Order Comment: Order Date: 05/20/24Order Info: 018- - CBCD Performed By: #### L 100.0100, L500.4050 ####[facility] [address] [place], [address] MCHC (RBC) [Mass/Vol] 32.2 g/dL Normal 32-36 [facility] Comment on above: Order Comment: Order Date: 05/20/24Order Info: 0184-1 - CBCD Performed By: #### L 100.0100, L500.4050 ####[facility] [address] [place], [address] MCV (RBC) [Entitic vol] 85.0 fL Normal 81-99 [facility] Comment on above: Order Comment: Order Date: 05/20/24Order Info: 0184-1 - CBCD Performed By: #### L 100.0100, L500.4050 ####[facility] [address] [place], [address] Monocytes/100 WBC (Bld) 8.1 % Normal 0-10 [facility] Comment on above: Order Comment: Order Date: 05/20/24Order Info: 0184-1 - CBCD Performed By: #### L 100.0100, L500.4050 ####[facility] [address] [place], [address] Neutrophils/100 WBC (Bld) 47.4 % Normal 47-70 [facility] Comment on above: Order Comment: Order Date: 05/20/24Order Info: 0184-1 - CBCD Performed By: #### L 100.0100, L500.4050 ####[facility] [address] [place], [address] Nucleated RBC (Bld) [#/Vol] 0 10*3/uL Normal 0-5 [facility] Comment on above: Order Comment: Order Date: 05/20/24Order Info: 0184-1 - CBCD Performed By: #### L 100.0100, L500.4050 ####[facility] [address] [place], [address] Platelet mean volume (Bld) [Entitic vol] 11.5 fL Normal 6.2-12.0 [facility] Comment on above: Order Comment: Order Date: 05/20/24Order Info: 0184-1 - CBCD Performed By: #### L 100.0100, L500.4050 ####[facility] [address] [place], [address] Platelets (Bld) [#/Vol] 227 10*3/uL Normal 150-450 [facility] Comment on above: Order Comment: Order Date: 05/20/24Order Info: 0184-1 - CBCD Performed By: #### L 100.0100, L500.4050 ####[facility] [address] [place], [address] RBC (Bld) [#/Vol] 3.99 10*6/uL Low 4.2-5.4 [facility] Comment on above: Order Comment: Order Date: 05/20/24Order Info: 0184-1 - CBCD Performed By: #### L 100.0100, L500.4050 ####[facility] [address] [place], [address] RDW SD 44.8 fl High 35.1-43.9 [facility] Comment on above: Order Comment: Order Date: 05/20/24Order Info: 0184-1 - CBCD Performed By: #### L 100.0100, L500.4050 ####[facility] [address] [place], [address] WBC (Bld) [#/Vol] 7.9 10*3/uL Normal 4.4-11.0 [facility] Comment on above: Order Comment: Order Date: 05/20/24Order Info: 0184-1 - CBCD Performed By: #### L 100.0100, L500.4050 ####[facility] [address] [place], [address] Comprehensive Metabolic Prof ilon 05-20-2024 Albumin [Mass/Vol] 4.2 g/dL Normal 3.4-4.8 [facility] Comment on above: Order Comment: Order Date: 05/20/24Order Info: 0786-1 - CMP Performed By: #### L 100.0100, L500.4050 ####[facility] [address] [place], [address] Albumin/Globulin [Mass ratio] 1.6 {ratio} Normal 0.9-2.4 [facility] Comment on above: Order Comment: Order Date: 05/20/24Order Info: 0786-1 - CMP Performed By: #### L 100.0100, L500.4050 ####[facility] [address] [place], [address] ALK PHOS 74 U/L Normal 35-104 [facility] Comment on above: Order Comment: Order Date: 05/20/24Order Info: 0786-1 - CMP Performed By: #### L 100.0100, L500.4050 ####[facility] [address] [place], [address] ALT [Catalytic activity/Vol] 26 U/L Normal <=34 [facility] Comment on above: Order Comment: Order Date: 05/20/24Order Info: 0786-1 - CMP Performed By: #### L 100.0100, L500.4050 ####[facility] [address] [place], [address] AST [Catalytic activity/Vol] 25 U/L Normal <=31 [facility] Comment on above: Order Comment: Order Date: 05/20/24Order Info: 0786-1 - CMP Performed By: #### L 100.0100, L500.4050 ####[facility] [address] [place], [address] Bilirubin [Mass/Vol] 0.30 mg/dL Normal 0.00-1.30 [facility] Comment on above: Order Comment: Order Date: 05/20/24Order Info: 0786-1 - CMP Performed By: #### L 100.0100, L500.4050 ####[facility] [address] [place], [address] BUN/CRE 16.4 RATIO Normal 10-20 [facility] Comment on above: Order Comment: Order Date: 05/20/24Order Info: 0786-1 - CMP Performed By: #### L 100.0100, L500.4050 ####[facility] [address] [place], [address] Calcium [Mass/Vol] 9.3 mg/dL Normal 7.6-11.0 [facility] Comment on above: Order Comment: Order Date: 05/20/24Order Info: 0786-1 - CMP Performed By: #### L 100.0100, L500.4050 ####[facility] [address] [place], [address] Chloride [Moles/Vol] 100 mmol/L Normal 98-108 [facility] Comment on above: Order Comment: Order Date: 05/20/24Order Info: 0786-1 - CMP Performed By: #### L 100.0100, L500.4050 ####[facility] [address] [place], [address] CO2 [Moles/Vol] 25.4 mmol/L Normal 21.0-32.0 [facility] Comment on above: Order Comment: Order Date: 05/20/24Order Info: 0786-1 - CMP Performed By: #### L 100.0100, L500.4050 ####[facility] [address] [place], [address] Creatinine [Mass/Vol] 0.69 mg/dL Low 0.70-1.20 [facility] Comment on above: Order Comment: Order Date: 05/20/24Order Info: 0786-1 - CMP Performed By: #### L 100.0100, L500.4050 ####[facility] [address] [place], [address] GAP 11 Normal 5-15 [facility] Comment on above: Order Comment: Order Date: 05/20/24Order Info: 0786-1 - CMP Performed By: #### L 100.0100, L500.4050 ####[facility] [address] [place], [address] GFR/1.73 sq M.predicted among non-blacks MDRD (S/P/Bld) [Vol rate/Area] 85 mL/min/{1.73_m2} Normal >60 [facility] Comment on above: Order Comment: Order Date: 05/20/24Order Info: 0786-1 - CMP Result Comment: mL/m in/1.73m2 CKD-EPI Creatinine Equation (2020) Performed By: #### L 100.0100, L500.4050 ####[facility] [address] [place], [address] Globulin (S) [Mass/Vol] 2.6 g/dL Normal 2.2-4.2 [facility] Comment on above: Order Comment: Order Date: 05/20/24Order Info: 0786-1 - CMP Performed By: #### L 100.0100, L500.4050 ####[facility] [address] [place], [address] Glucose [Mass/Vol] 143 mg/dL High 70-99 [facility] Comment on above: Order Comment: Order Date: 05/20/24Order Info: 0786-1 - CMP Performed By: #### L 100.0100, L500.4050 ####[facility] [address] [place], [address] Potassium [Moles/Vol] 3.8 mmol/L Normal 3.3-5.1 [facility] Comment on above: Order Comment: Order Date: 05/20/24Order Info: 0786-1 - CMP Performed By: #### L 100.0100, L500.4050 ####[facility] [address] [place], [address] Sodium [Moles/Vol] 136 mmol/L Normal 133-145 [facility] Comment on above: Order Comment: Order Date: 05/20/24Order Info: 0786-1 - CMP Performed By: #### L 100.0100, L500.4050 ####[facility] [address] [place], [address] T PROT 6.8 g/dL Normal 5.9-8.4 [facility] Comment on above: Order Comment: Order Date: 05/20/24Order Info: 0786-1 - CMP Performed By: #### L 100.0100, L500.4050 ####[facility] [address] [place], [address] Urea nitrogen [Mass/Vol] 11 mg/dL Normal 4-19 [facility] Comment on above: Order Comment: Order Date: 05/20/24Order Info: 0786-1 - CMP Performed By: #### L 100.0100, L500.4050 ####[facility] [address] [place], [address] L506.1001on 05-20-2024 Vitamin D 25-OH 26.9 ng/mL Low 30-100 [facility] Comment on above: Order Comment: Order Date: 08/11/24 Order Info: 0786-1 - CMP Order Info: [id number] - MG Result Comment: Yessenia min D Status Deficiency: <20 ng/mL (50nmol/L) Insufficiency: 20-30 ng/mL (50-75 nmol/L) Sufficiency: 30-100 ng/mL (75-250 nmol/L) Toxicity: >100 ng/mL (>250 nmol/L) Performed By: #### L 501.5200, M100.0605, L7000.0300, L500.4050, L100.0100, M100.6796 #### [facility] [address] [place], [address] Ferritinon 04-06-2024 Ferritin [Mass/Vol] 12 ng/mL Normal 8-252 [facility] Comment on above: Order Comment: Order Date: 08/11/24 Order Info: 0786-1 - CMP Order Info: [id number] - MG Performed By: #### L 501.5200, M100.0605, L7000.0300, L500.4050, L100.0100, M100.6796 #### [facility] [address] [place], [place], [address] Iron+Iron Binding Capacityon 04-06-2024 Iron [Mass/Vol] 41 ug/dL Low 50-170 [facility] Comment on above: Order Comment: Order Date: 08/11/24 Order Info: 0786-1 - CMP Order Info: [id number] - MG Performed By: #### L 501.5200, M100.0605, L7000.0300, L500.4050, L100.0100, M100.6796 #### [facility] [address] [place], [place], [address] IRON SATURATION 9.8 Low 15.0-55.0 [facility] Comment on above: Order Comment: Order Date: 08/11/24 Order Info: 0786-1 - CMP Order Info: [id number] - MG Performed By: #### L 501.5200, M100.0605, L7000.0300, L500.4050, L100.0100, M100.6796 #### [facility] [address] [place], [place], [address] TIBC 420 ug/dL Normal 250-450 [facility] Comment on above: Order Comment: Order Date: 08/11/24 Order Info: 0786-1 - CMP Order Info: [id number] - MG Performed By: #### L 501.5200, M100.0605, L7000.0300, L500.4050, L100.0100, M100.6796 #### [facility] [address] [place], [address] CBC W/Diff, Automatedon 03-11 Absolute Lymph 2.14 X10 3/uL Normal 0.83-4.51 [facility] Comment on above: Order Comment: Order Date: 08/11/24 Order Info: 0786-1 - CMP Order Info: [id number] - MG Performed By: #### L 501.5200, M100.0605, L7000.0300, L500.4050, L100.0100, M100.6796 #### [facility] [address] [place], [address] Absolute Neut 3.7 X10 3/uL Normal 2.0-7.7 [facility] Comment on above: Order Comment: Order Date: 08/11/24 Order Info: 0786-1 - CMP Order Info: [id number] - MG Performed By: #### L 501.5200, M100.0605, L7000.0300, L500.4050, L100.0100, M100.6796 #### [facility] [address] [place], [address] Basophils/100 WBC (Bld) 0.9 % Normal 0-1 [facility] Comment on above: Order Comment: Order Date: 08/11/24 Order Info: 0786-1 - CMP Order Info: [id number] - MG Performed By: #### L 501.5200, M100.0605, L7000.0300, L500.4050, L100.0100, M100.6796 #### [facility] [address] [place], [address] Eosinophils/100 WBC (Bld) 3.2 % Normal 0-5 [facility] Comment on above: Order Comment: Order Date: 08/11/24 Order Info: 0786-1 - CMP Order Info: [id number] - MG Performed By: #### L 501.5200, M100.0605, L7000.0300, L500.4050, L100.0100, M100.6796 #### [facility] [address] [place], [address] Erythrocyte distribution width (RBC) [Ratio] 14.7 % High 11.6-14.6 [facility] Comment on above: Order Comment: Order Date: 08/11/24 Order Info: 0786-1 - CMP Order Info: [id number] - MG Performed By: #### L 501.5200, M100.0605, L7000.0300, L500.4050, L100.0100, M100.6796 #### [facility] [address] [place], [address] Hematocrit (Bld) [Volume fraction] 34.4 % Low 37-47 [facility] Comment on above: Order Comment: Order Date: 08/11/24 Order Info: 0786-1 - [facility] Order Info: [id number] - MG Performed By: #### L 501.5200, M100.0605, L7000.0300, L500.4050, L100.0100, M100.6796 #### [facility] [address] [place], [address] Hemoglobin (Bld) [Mass/Vol] 10.6 g/dL Low 12.0-15.0 [facility] Comment on above: Order Comment: Order Date: 08/11/24 Order Info: 0786-1 - CMP Order Info: [id number] - MG Performed By: #### L 501.5200, M100.0605, L7000.0300, L500.4050, L100.0100, M100.6796 #### [facility] [address] [place], [address] IG% 0.200 Normal 0.0-0.9 [facility] Comment on above: Order Comment: Order Date: 08/11/24 Order Info: 0786-1 - CMP Order Info: [id number] - MG Result Comment: IG% - Immature Granulocytes (promyelocytes, myelocytes and metamyelocytes) > 1% indicates that a LEFT SHIFT is Present. Performed By: #### L 501.5200, M100.0605, L7000.0300, L500.4050, L100.0100, M100.6796 #### [facility] [address] [place], [address] Lymphocytes/100 WBC (Bld) 32.1 % Normal 19-41 [facility] Comment on above: Order Comment: Order Date: 08/11/24 Order Info: 0786-1 - CMP Order Info: [id number] - MG Performed By: #### L 501.5200, M100.0605, L7000.0300, L500.4050, L100.0100, M100.6796 #### [facility] [address] [place], [address] MCH (RBC) [Entitic mass] 26.8 pg Low 27.0-32.0 [facility] Comment on above: Order Comment: Order Date: 08/11/24 Order Info: 0786-1 - CMP Order Info: [id number] - MG Performed By: #### L 501.5200, M100.0605, L7000.0300, L500.4050, L100.0100, M100.6796 #### [facility] [address] [place], [address] MCHC (RBC) [Mass/Vol] 30.8 g/dL Low 32-36 [facility] Comment on above: Order Comment: Order Date: 08/11/24 Order Info: 0786-1 - CMP Order Info: [id number] - MG Performed By: #### L 501.5200, M100.0605, L7000.0300, L500.4050, L100.0100, M100.6796 #### [facility] [address] [place], [address] MCV (RBC) [Entitic vol] 87.1 fL Normal 81-99 [facility] Comment on above: Order Comment: Order Date: 08/11/24 Order Info: 0786-1 - CMP Order Info: [id number] - MG Performed By: #### L 501.5200, M100.0605, L7000.0300, L500.4050, L100.0100, M100.6796 #### [facility] [address] [place], [address] Monocytes/100 WBC (Bld) 8.9 % Normal 0-10 [facility] Comment on above: Order Comment: Order Date: 08/11/24 Order Info: 0786-1 - CMP Order Info: [id number] - MG Performed By: #### L 501.5200, M100.0605, L7000.0300, L500.4050, L100.0100, M100.6796 #### [facility] [address] [place], [address] Neutrophils/100 WBC (Bld) 54.7 % Normal 47-70 [facility] Comment on above: Order Comment: Order Date: 08/11/24 Order Info: 0786-1 - CMP Order Info: [id number] - MG Performed By: #### L 501.5200, M100.0605, L7000.0300, L500.4050, L100.0100, M100.6796 #### [facility] [address] [place], [address] Nucleated RBC (Bld) [#/Vol] 0 10*3/uL Normal 0-5 [facility] Comment on above: Order Comment: Order Date: 08/11/24 Order Info: 0786-1 - CMP Order Info: [id number] - MG Performed By: #### L 501.5200, M100.0605, L7000.0300, L500.4050, L100.0100, M100.6796 #### [facility] [address] [place], [address] Platelet mean volume (Bld) [Entitic vol] 11.5 fL Normal 6.2-12.0 [facility] Comment on above: Order Comment: Order Date: 08/11/24 Order Info: 0786-1 - CMP Order Info: [id number] - MG Performed By: #### L 501.5200, M100.0605, L7000.0300, L500.4050, L100.0100, M100.6796 #### [facility] [address] [place], [address] Platelets (Bld) [#/Vol] 217 10*3/uL Normal 150-450 [facility] Comment on above: Order Comment: Order Date: 08/11/24 Order Info: 0786-1 - CMP Order Info: [id number] - MG Performed By: #### L 501.5200, M100.0605, L7000.0300, L500.4050, L100.0100, M100.6796 #### [facility] [address] [place], [address] RBC (Bld) [#/Vol] 3.95 10*6/uL Low 4.2-5.4 [facility] Comment on above: Order Comment: Order Date: 08/11/24 Order Info: 0786-1 - CMP Order Info: [id number] - MG Performed By: #### L 501.5200, M100.0605, L7000.0300, L500.4050, L100.0100, M100.6796 #### [facility] [address] [place], [address] RDW SD 47.5 fl High 35.1-43.9 [facility] Comment on above: Order Comment: Order Date: 08/11/24 Order Info: 0786-1 - CMP Order Info: [id number] - MG Performed By: #### L 501.5200, M100.0605, L7000.0300, L500.4050, L100.0100, M100.6796 #### [facility] [address] [place], [address] WBC (Bld) [#/Vol] 6.7 10*3/uL Normal 4.4-11.0 [facility] Comment on above: Order Comment: Order Date: 08/11/24 Order Info: 0786-1 - CMP Order Info: [id number] - MG Performed By: #### L 501.5200, M100.0605, L7000.0300, L500.4050, L100.0100, M100.6796 #### [facility] [address] [place], [address] Comprehensive Metabolic Prof [facility] 04-02-2024 Albumin [Mass/Vol] 3.4 g/dL Normal 3.2-5.0 [facility] Comment on above: Order Comment: Order Date: 08/11/24 Order Info: 0786-1 - CMP Order Info: [id number] - MG Performed By: #### L 501.5200, M100.0605, L7000.0300, L500.4050, L100.0100, M100.6796 #### [facility] [address] [place], [address] Albumin/Globulin [Mass ratio] 1.0 {ratio} Normal 0.9-2.4 [facility] Comment on above: Order Comment: Order Date: 08/11/24 Order Info: 0786-1 - CMP Order Info: [id number] - MG Performed By: #### L 501.5200, M100.0605, L7000.0300, L500.4050, L100.0100, M100.6796 #### [facility] [address] [place], [address] ALK P 137 U/L High 45-117 [facility] Comment on above: Order Comment: Order Date: 08/11/24 Order Info: 0786-1 - CMP Order Info: [id number] - MG Performed By: #### L 501.5200, M100.0605, L7000.0300, L500.4050, L100.0100, M100.6796 #### [facility] [address] [place], [address] ALT [Catalytic activity/Vol] 28 U/L Normal 13-56 [facility] Comment on above: Order Comment: Order Date: 08/11/24 Order Info: 0786-1 - CMP Order Info: [id number] - MG Performed By: #### L 501.5200, M100.0605, L7000.0300, L500.4050, L100.0100, M100.6796 #### [facility] [address] [place], [place], [id number] AST [Catalytic activity/Vol] 17 U/L Normal 15-37 [facility] Comment on above: Order Comment: Order Date: 08/11/24 Order Info: 0786-1 - CMP Order Info: [id number] - MG Performed By: #### L 501.5200, M100.0605, L7000.0300, L500.4050, L100.0100, M100.6796 #### [facility] [address] [place], [place], [address] Bilirubin [Mass/Vol] 0.40 mg/dL Normal 0.20-1.00 [facility] Comment on above: Order Comment: Order Date: 08/11/24 Order Info: 0786-1 - CMP Order Info: [id number] - MG Result Comment: For patients on eltrombopag therapy, use of Dimension [place] TBIL is not recommended. Performed By: #### L 501.5200, M100.0605, L7000.0300, L500.4050, L100.0100, M100.6796 #### [facility] [address] [place], [address] BUN/CRE 18.7 RATIO Normal 10-20 [facility] Comment on above: Order Comment: Order Date: 08/11/24 Order Info: 0786-1 - CMP Order Info: [id number] - MG Performed By: #### L 501.5200, M100.0605, L7000.0300, L500.4050, L100.0100, M100.6796 #### [facility] [address] [place], [address] CA,Total 8.8 mg/dL Normal 8.5-10.1 [facility] Comment on above: Order Comment: Order Date: 08/11/24 Order Info: 0786-1 - CMP Order Info: [id number] - MG Performed By: #### L 501.5200, M100.0605, L7000.0300, L500.4050, L100.0100, M100.6796 #### [facility] [address] [place], [place], [address] Chloride [Moles/Vol] 103 mmol/L Normal 98-107 [facility] Comment on above: Order Comment: Order Date: 08/11/24 Order Info: 0786-1 - CMP Order Info: [id number] - MG Performed By: #### L 501.5200, M100.0605, L7000.0300, L500.4050, L100.0100, M100.6796 #### [facility] [address] [place], [place], [address] [phone] CO2 [Moles/Vol] 25.0 mmol/L Normal 21.0-32.0 [facility] Comment on above: Order Comment: Order Date: 08/11/24 Order Info: 0786-1 - CMP Order Info: [id number] - MG Performed By: #### L 501.5200, M100.0605, L7000.0300, L500.4050, L100.0100, M100.6796 #### [facility] [address] [place], [place], [address] Creatinine [Mass/Vol] 0.70 mg/dL Normal 0.55-1.02 [facility] Comment on above: Order Comment: Order Date: 08/11/24 Order Info: 0786-1 - CMP Order Info: [id number] - MG Result Comment: The validity of the calculated GFR GFRAA in patients over 70 years has not been determined. Clinical correlation is essential. Performed By: #### L 501.5200, M100.0605, L7000.0300, L500.4050, L100.0100, M100.6796 #### [facility] [address] [place], [address] EST GFR - AA 103 mL/min Normal >60 [facility] Comment on above: Order Comment: Order Date: 08/11/24 Order Info: 0786-1 - [facility] Order Info: [id number] - MG Result Comment: Afri can Cambodian GFR Calc Performed By: #### L 501.5200, M100.0605, L7000.0300, L500.4050, L100.0100, M100.6796 #### [facility] [address] [place], [address] GAP 9 Normal 5-15 [facility] Comment on above: Order Comment: Order Date: 08/11/24 Order Info: 0786-1 - [facility] Order Info: [id number] - MG Performed By: #### L 501.5200, M100.0605, L7000.0300, L500.4050, L100.0100, M100.6796 #### [facility] [address] [place], [address] GFR/1.73 sq M.predicted among non-blacks MDRD (S/P/Bld) [Vol rate/Area] 85 mL/min/{1.73_m2} Normal >60 [facility] Comment on above: Order Comment: Order Date: 08/11/24 Order Info: 0786-1 - CMP Order Info: [id number] - MG Result Comment: Non- GFR Calc Performed By: #### L 501.5200, M100.0605, L7000.0300, L500.4050, L100.0100, M100.6796 #### [facility] [address] [place], [address] Globulin (S) [Mass/Vol] 3.5 g/dL Normal 2.2-4.2 [facility] Comment on above: Order Comment: Order Date: 08/11/24 Order Info: 0786-1 - [facility] Order Info: [id number] - MG Performed By: #### L 501.5200, M100.0605, L7000.0300, L500.4050, L100.0100, M100.6796 #### [facility] [address] [place], [address] Glucose [Mass/Vol] 174 mg/dL High 74-106 [facility] Comment on above: Order Comment: Order Date: 08/11/24 Order Info: 0786-1 - [facility] Order Info: [id number] - MG Result Comment: Fast ing Glucose result greater than or equal to 126 mg/dL suggests DIABETES MELLITUS per A.D.A. criteria. Performed By: #### L 501.5200, M100.0605, L7000.0300, L500.4050, L100.0100, M100.6796 #### [facility] [address] [place], [address] Potassium [Moles/Vol] 3.8 mmol/L Normal 3.5-5.1 [facility] Comment on above: Order Comment: Order Date: 08/11/24 Order Info: 0786-1 - [facility] Order Info: [id number] - MG Performed By: #### L 501.5200, M100.0605, L7000.0300, L500.4050, L100.0100, M100.6796 #### [facility] [address] [place], [address] Sodium [Moles/Vol] 137 mmol/L Normal 136-145 [facility] Comment on above: Order Comment: Order Date: 08/11/24 Order Info: 0786-1 - CMP Order Info: [id number] - MG Performed By: #### L 501.5200, M100.0605, L7000.0300, L500.4050, L100.0100, M100.6796 #### [facility] [address] [place], [address] T PROT 6.9 g/dL Normal 6.4-8.2 [facility] Comment on above: Order Comment: Order Date: 08/11/24 Order Info: 0786-1 - CMP Order Info: [id number] - MG Performed By: #### L 501.5200, M100.0605, L7000.0300, L500.4050, L100.0100, M100.6796 #### [facility] [address] [place], [place], [address] Urea nitrogen [Mass/Vol] 13 mg/dL Normal 7-18 [facility] Comment on above: Order Comment: Order Date: 08/11/24 Order Info: 0786-1 - CMP Order Info: [id number] - MG Performed By: #### L 501.5200, M100.0605, L7000.0300, L500.4050, L100.0100, M100.6796 #### [facility] [address] [place], [address] Lipid Profileon 04-02-2024 Cholesterol [Mass/Vol] 139 mg/dL Normal 200 [facility] Comment on above: Order Comment: Order Date: 04/02/24Order Info: 0786-1 - CMPOrder Info: [id number] - LIPID Result Comment: <200 mg/dL Desirable 200-240 mg/dL Borderline >240 mg/dL High Risk Performed By: #### L 501.5200, M100.0605, L7000.0300, L500.4050, L100.0100, M100.6796 #### [facility] [address] [place], [address] Cholesterol in HDL [Mass/Vol] 65 mg/dL Normal [facility] Comment on above: Order Comment: Order Date: 04/02/24Order Info: 0786-1 - CMPOrder Info: [id number] - LIPID Result Comment: The drugs N-Acetylcysteine and Metamizole may falsely depress this assay. Reference Range HDL <40 mg/dL Low HDL Cholesterol HDL >or= 60 mg/dL High HDL Cholesterol Performed By: #### L 501.5200, M100.0605, L7000.0300, L500.4050, L100.0100, M100.6796 #### [facility] [address] [place], [address] Cholesterol in LDL [Mass/Vol] 49 mg/dL Normal 0-130 [facility] Comment on above: Order Comment: Order Date: 04/02/24Order Info: 0786- - CMPOrder Info: [id number] - LIPID Performed By: #### L 501.5200, M100.0605, L7000.0300, L500.4050, L100.0100, M100.6796 #### [facility] [address] [place], [address] Cholesterol in VLDL [Mass/Vol] 25 mg/dL Normal 5-40 [facility] Comment on above: Order Comment: Order Date: 04/02/24Order Info: 0786-1 - CMPOrder Info: [id number] - LIPID Performed By: #### L 501.5200, M100.0605, L7000.0300, L500.4050, L100.0100, M100.6796 #### [facility] [address] [place], [address] Triglyceride [Mass/Vol] 124 mg/dL Normal [facility] Comment on above: Order Comment: Order Date: 04/02/24Order Info: 0786-1 - CMPOrder Info: [id number] - LIPID Result Comment: The drugs N-Acetylcysteine and Metamizole may falsely depress this assay. Serum Triglycerides Reference Interval Normal <150 mg/dL Borderline high 150 - 199 mg/dL High 200 - 499 mg/dL Very High > or = 500 mg/dL Performed By: #### L 501.5200, M100.0605, L7000.0300, L500.4050, L100.0100, M100.6796 #### [facility] [address] [place], [address] Microalb:Creat Ratio,Random URon 04-02-2024 Creatinine [Mass/Vol] 83.10 mg/dL Normal NO RANGE EST. [facility] Comment on above: Order Comment: Order Date: 04/02/24Order Info: [id number] - [facility] Performed By: #### L 501.5200, M100.0605, L7000.0300, L500.4050, L100.0100, M100.6796 #### [facility] [address] [place], [address] MALB:CRE 31.9 mg/g CRE High <30 mg/g CRE [facility] Comment on above: Order Comment: Order Date: 04/02/24Order Info: [id number] - [facility] Performed By: #### L 501.5200, M100.0605, L7000.0300, L500.4050, L100.0100, M100.6796 #### [facility] [address] [place], [address] MICROALBUMIN,UR 26.5 mg/L Normal NO RANGE EST. [facility] Comment on above: Order Comment: Order Date: 04/02/24Order Info: [id number] - [facility] Performed By: #### L 501.5200, M100.0605, L7000.0300, L500.4050, L100.0100, M100.6796 #### [facility] [address] [place], [address] Urinalysis, Completeon 04-02 BACTERIA 0 SEEN Normal None Seen [facility] Comment on above: Order Comment: Order Date: 08/11/24 Order Info: [id number] - CBCD Performed By: #### L 501.5200, M100.0605, L7000.0300, L500.4050, L100.0100, M100.6796 #### [facility] [address] [place], [address] EPI,SQUAMOUS 0 SEEN Normal 5-10 [facility] Comment on above: Order Comment: Order Date: 08/11/24 Order Info: [id number]- - CBCD Performed By: #### L 501.5200, M100.0605, L7000.0300, L500.4050, L100.0100, M100.6796 #### [facility] [address] [place], [address] Mucus Ql (Urine sed) 0 SEEN Normal [facility] Comment on above: Order Comment: Order Date: 08/11/24 Order Info: [id number]- - CBCD Performed By: #### L 501.5200, M100.0605, L7000.0300, L500.4050, L100.0100, M100.6796 #### [facility] [address] [place], [address] RBC 0 SEEN Normal 0-5 [facility] Comment on above: Order Comment: Order Date: 08/11/24 Order Info: 0184- - CBCD Performed By: #### L 501.5200, M100.0605, L7000.0300, L500.4050, L100.0100, M100.6796 #### [facility] [address] [place], [address] WBC 0 SEEN Normal 0-5 [facility] Comment on above: Order Comment: Order Date: 08/11/24 Order Info: [id number] - [facility]CD Performed By: #### L 501.5200, M100.0605, L7000.0300, L500.4050, L100.0100, M100.6796 #### [facility] [address] [place], [address] Vitamin D,25 Hydroxyon 04-02 Vitamin D 25-OH 28.4 ng/mL Normal [facility] Comment on above: Order Comment: Order Date: 08/11/24 Order Info: 0786-1 - CMP Order Info: [id number] - MG Result Comment: Yessenia min D 25(OH) Status Range Deficiency <20 ng/mL (50nmol/L) Insufficiency 20 - 30 ng/mL (50 - 75 nmol/L) Sufficiency 30 - 100 ng/mL (75 - 250 nmol/L) Toxicity >100 ng/mL (>250 nmol/L) Performed By: #### L 501.5200, M100.0605, L7000.0300, L500.4050, L100.0100, M100.6796 #### [facility] [address] [place], [address] MR/BMS.BPon 03-18-2024 MR/BMS.[address] [address] OFFICE VISIT Date of Service: 03/18/24 MR#: [id number] Acct: [id number] Name: MATILDEJose Rep #: [id number] : 1940 Provider: Dr. Sheridan Lima se, DO Age/Sex: 84/F Location: [facility].BP Status: Signed Intake Vital Signs 01/22/24 07:53 [...] Neurological Reports (more content not included)... Normal [facility] MR/BMSJanice 01-22-2024 MR/BMS [address], [address] [place] [address] OFFICE VISIT Date of Service: 01/22/24 MR#: [id number] Acct: [id number] Name: Jose PIEDRA Rep #: [id number] : 1940 Provider: Dr. Sheridan Lima se, DO Age/Sex: 83/F Location: [facility].BP Status: Signed Intake Vital Signs 09/22/23 09:43 [...] the past. Has not been going to worship anymore because she doesn't feel comfortable there. [...] dysuria or (more content not included)... [facility] LAB TEST Normal [facility] Comment on above: Order Comment: [id number] WB RF LAV(EDTA)[id number] RETICULOCYTE COUNT WB RF LAV(EDTA) Result Comment: TEST RESULTS LIMITS Reticulocyte Count 1.5 % 0.6-2.6 TESTING PERFORMED AT [facility]. ORIGINAL REPORT ON FILE IN LAB CONTAINS ADDITIONAL TEST SITE INFORMATION. Performed By: #### L 503.6550, L801.1541, L506.0250, L503.0105, L503.6030 ####[facility] [address] [place], [place], [address] Ferritinon 12-16-2023 Ferritin [Mass/Vol] 22 ng/mL Normal 8-252 [facility] Comment on above: Order Comment: N Performed By: #### L 503.6550, L801.1541, L506.0250, L503.0105, L503.6030 ####[facility] [address] [place], [address] Folates, (Folic Acid)on FOLATES 97.40 ng/mL High 3.1-55.4 [facility] Comment on above: Order Comment: N Performed By: #### L 503.6550, L801.1541, L506.0250, L503.0105, L503.6030 ####[facility] [address] [place], [address] Iron+Iron Binding Capacityon 12-16-2023 Iron [Mass/Vol] 114 ug/dL Normal 50-170 [facility] Comment on above: Order Comment: N Performed By: #### L 503.6550, L801.1541, L506.0250, L503.0105, L503.6030 ####[facility] [address] [place], [address] IRON SATURATION 29.1 Normal 15.0-55.0 [facility] Comment on above: Order Comment: N Performed By: #### L 503.6550, L801.1541, L506.0250, L503.0105, L503.6030 ####[facility] [address] [place], [address] TIBC 392 ug/dL Normal 250-450 [facility] Comment on above: Order Comment: N Performed By: #### L 503.6550, L801.1541, L506.0250, L503.0105, L503.6030 ####[facility] [address] [place], [address] Vitamin B12on 12-16-2023 Cobalamin (Vitamin B12) [Mass/Vol] 478 pg/mL Normal 211-911 [facility] Comment on above: Performed By: #### L 503.6550, L801.1541, L506.0250, L503.0105, L503.6030 ####[facility] [address] [place], [address] MRSA/SAID NASAL SCREENon MRSA+SAID SCRN Reason for Exam: PRE OP MRSA MRSA Negative S. AUREUS S. aureus Negative Normal [facility] Comment on above: Performed By: #### L 501.1800, L501.9985, M100.651, L100.0100, L500.2500 ####[facility] [address] [place], [address] 12 Lead EKGon 12-12-2023 12 Lead EKG [facility] [address] [place] [address] 12 Lead EKG 12/12/23 1214 MR#: [id number] Acct: [id number] Name: Jose PIEDRA Rep #: [id number] : 1940 83 From: Scooter Reyes MD Attending Dr: Dr. Sheridan Nowak MD Status: PRE LAC Ordering Dr: Sheridan Nowak MD Date: 12/12/23 Location: [facility] Sex: F C Admitted: Test Reason : [...] ECG Confirmed by JESSEE العلي, SCOOTER ([id number]), manuscript editor JOEY SANCHEZ ([id number]) on 12/16/2023 10:02:41 AM Referred By: Sheridan Nowak Confirmed By:SCOOTER REYES MD 12/16/23 1002 Date Scooter Reyes MD CC: Dr. Ronak Escalante MD; Dr. Sheridan Nowak MD Signed Normal [facility] Albumin, Serumon 12-12-2023 Albumin [Mass/Vol] 3.9 g/dL Normal 3.2-5.0 [facility] Comment on above: Performed By: #### L 501.1800, L501.9985, M100.651, L100.0100, L500.2500 ####[facility] [address] [place], [address] Basic Metabolic Profile (BMP )on 12-12-2023 BUN/CRE 14.1 RATIO Normal 10-20 [facility] Comment on above: Performed By: #### L 501.1800, L501.9985, M100.651, L100.0100, L500.2500 ####[facility] [address] [place], [address] CA,Total 9.5 mg/dL Normal 8.5-10.1 [facility] Comment on above: Performed By: #### L 501.1800, L501.9985, M100.651, L100.0100, L500.2500 ####[facility] [address] [place], [address] Chloride [Moles/Vol] 99 mmol/L Normal 98-107 [facility] Comment on above: Performed By: #### L 501.1800, L501.9985, M100.651, L100.0100, L500.2500 ####[facility] [address] [place], [address] CO2 [Moles/Vol] 30.0 mmol/L Normal 21.0-32.0 [facility] Comment on above: Performed By: #### L 501.1800, L501.9985, M100.651, L100.0100, L500.2500 ####[facility] [address] [place], [address] Creatinine [Mass/Vol] 0.92 mg/dL Normal 0.55-1.02 [facility] Comment on above: Result Comment: The validity of the calculated GFR GFRAA in patients over 70 years has not been determined. Clinical correlation is essential. Performed By: #### L 501.1800, L501.9985, M100.651, L100.0100, L500.2500 ####[facility] [address] [place], [address] EST GFR - AA 75 mL/min Normal >60 [facility] Comment on above: Result Comment: Afri can Cambodian GFR Calc Performed By: #### L 501.1800, L501.9985, M100.651, L100.0100, L500.2500 ####[facility] [address] [place], [address] GAP 6 Normal 5-15 [facility] Comment on above: Performed By: #### L 501.1800, L501.9985, M100.651, L100.0100, L500.2500 ####[facility] [address] [place], [address] GFR/1.73 sq M.predicted among non-blacks MDRD (S/P/Bld) [Vol rate/Area] 62 mL/min/{1.73_m2} Normal >60 [facility] Comment on above: Result Comment: Non- GFR Calc Performed By: #### L 501.1800, L501.9985, M100.651, L100.0100, L500.2500 ####[facility] [address] [place], [address] Glucose [Mass/Vol] 297 mg/dL High 74-106 [facility] Comment on above: Result Comment: Gluc ose result greater than or equal to 200 mg/dL suggests DIABETES MELLITUS per A.D.A. criteria. Performed By: #### L 501.1800, L501.9985, M100.651, L100.0100, L500.2500 ####[facility] [address] [place], [address] Potassium [Moles/Vol] 4.1 mmol/L Normal 3.5-5.1 [facility] Comment on above: Performed By: #### L 501.1800, L501.9985, M100.651, L100.0100, L500.2500 ####[facility] [address] [place], [address] Sodium [Moles/Vol] 135 mmol/L Low 136-145 [facility] Comment on above: Performed By: #### L 501.1800, L501.9985, M100.651, L100.0100, L500.2500 ####[facility] [address] [place], [address] Urea nitrogen [Mass/Vol] 13 mg/dL Normal 7-18 [facility] Comment on above: Performed By: #### L 501.1800, L501.9985, M100.651, L100.0100, L500.2500 ####[facility] [address] [place], [address] CBC W/Diff, Automatedon 10-0 -2023 Absolute Lymph 1.87 X10 3/uL Normal 0.83-4.51 [facility] Comment on above: Performed By: #### L 501.1800, L501.9985, M100.651, L100.0100, L500.2500 ####[facility] [address] [place], [address] Absolute Neut 3.5 X10 3/uL Normal 2.0-7.7 [facility] Comment on above: Performed By: #### L 501.1800, L501.9985, M100.651, L100.0100, L500.2500 ####[facility] [address] [place], [address] Basophils/100 WBC (Bld) 1.1 % High 0-1 [facility] Comment on above: Performed By: #### L 501.1800, L501.9985, M100.651, L100.0100, L500.2500 ####[facility] [address] [place], [address] Eosinophils/100 WBC (Bld) 6.9 % High 0-5 [facility] Comment on above: Performed By: #### L 501.1800, L501.9985, M100.651, L100.0100, L500.2500 ####[facility] [address] [place], [address] Erythrocyte distribution width (RBC) [Ratio] 13.8 % Normal 11.6-14.6 [facility] Comment on above: Performed By: #### L 501.1800, L501.9985, M100.651, L100.0100, L500.2500 ####[facility] [address] [place], [address] Hematocrit (Bld) [Volume fraction] 36.2 % Low 37-47 [facility] Comment on above: Performed By: #### L 501.1800, L501.9985, M100.651, L100.0100, L500.2500 ####[facility] [address] [place], [address] Hemoglobin (Bld) [Mass/Vol] 11.1 g/dL Low 12.0-15.0 [facility] Comment on above: Performed By: #### L 501.1800, L501.9985, M100.651, L100.0100, L500.2500 ####[facility] [address] [place], [address] IG% 0.300 Normal 0.0-0.9 [facility] Comment on above: Result Comment: IG% - Immature Granulocytes (promyelocytes, myelocytes and metamyelocytes) > 1% indicates that a LEFT SHIFT is Present. Performed By: #### L 501.1800, L501.9985, M100.651, L100.0100, L500.2500 ####[facility] [address] [place], [address] Lymphocytes/100 WBC (Bld) 29.3 % Normal 19-41 [facility] Comment on above: Performed By: #### L 501.1800, L501.9985, M100.651, L100.0100, L500.2500 ####[facility] [address] [place], [address] MCH (RBC) [Entitic mass] 25.8 pg Low 27.0-32.0 [facility] Comment on above: Performed By: #### L 501.1800, L501.9985, M100.651, L100.0100, L500.2500 ####[facility] [address] [place], [address] MCHC (RBC) [Mass/Vol] 30.7 g/dL Low 32-36 [facility] Comment on above: Performed By: #### L 501.1800, L501.9985, M100.651, L100.0100, L500.2500 ####[facility] [address] [place], [address] MCV (RBC) [Entitic vol] 84.2 fL Normal 81-99 [facility] Comment on above: Performed By: #### L 501.1800, L501.9985, M100.651, L100.0100, L500.2500 ####[facility] [address] [place], [address] Monocytes/100 WBC (Bld) 7.4 % Normal 0-10 [facility] Comment on above: Performed By: #### L 501.1800, L501.9985, M100.651, L100.0100, L500.2500 ####[facility] [address] [place], [address] Neutrophils/100 WBC (Bld) 55.0 % Normal 47-70 [facility] Comment on above: Performed By: #### L 501.1800, L501.9985, M100.651, L100.0100, L500.2500 ####[facility] [address] [place], [address] Nucleated RBC (Bld) [#/Vol] 0 10*3/uL Normal 0-5 [facility] Comment on above: Performed By: #### L 501.1800, L501.9985, M100.651, L100.0100, L500.2500 ####[facility] [address] [place], [address] Platelet mean volume (Bld) [Entitic vol] 12.3 fL High 6.2-12.0 [facility] Comment on above: Performed By: #### L 501.1800, L501.9985, M100.651, L100.0100, L500.2500 ####[facility] [address] [place], [address] Platelets (Bld) [#/Vol] 218 10*3/uL Normal 150-450 [facility] Comment on above: Performed By: #### L 501.1800, L501.9985, M100.651, L100.0100, L500.2500 ####[facility] [address] [place], [address] RBC (Bld) [#/Vol] 4.30 10*6/uL Normal 4.2-5.4 [facility] Comment on above: Performed By: #### L 501.1800, L501.9985, M100.651, L100.0100, L500.2500 ####[facility] [address] [place], [address] RDW SD 42.5 fl Normal 35.1-43.9 [facility] Comment on above: Performed By: #### L 501.1800, L501.9985, M100.651, L100.0100, L500.2500 ####[facility] [address] [place], [address] WBC (Bld) [#/Vol] 6.4 10*3/uL Normal 4.4-11.0 [facility] Comment on above: Performed By: #### L 501.1800, L501.9985, M100.651, L100.0100, L500.2500 ####[facility] [address] [place], [address] Extremity Upper without Cont raon 12-12-2023 Extremity Upper without Contra [facility] Imaging Services [address] [place] [address] Extremity Upper without Contra MR#: [id number] Acct: [id number] Name: Jose PIEDRA Rep #: [id number] : 1940 F 83 From: Kunal Vanegas MD PCP: Dr. Ronak Escalante MD Status: REG CLI Study: Extremity Upper without Contra Date of Exam: Exam# [id number] Ordering Dr: Sheridan Nowak MD [id number] EXAM: CT RIGHT UPPER EXTREMITY WITHOUT INTRAVENOUS [...] Signed: Kunal Vanegas MD at 4:51 EDT , CC: Dr. Ronak Escalante MD; Dr. Sheridan Nowak MD Pay Clerk: Signed Normal [facility] Hemoglobin A1con 12-12-2023 HbA1c (Bld) [Mass fraction] 10.6 % High 3.8-5.6 [facility] Comment on above: Result Comment: Norm al < 5.7 % Prediabetic 5.7 - 6.4 % Diabetic >or= 6.5 % Please note range changes. Performed By: #### L 501.1800, L501.9985, M100.651, L100.0100, L500.2500 ####[facility] [id number] [facility] [place], [address] Magnesiumon 12-12-2023 Magnesium [Mass/Vol] 1.5 mg/dL Low 1.6-2.6 [facility] Comment on above: Performed By: #### L 501.5200 ####[facility] [id number] [facility] [place], [address] Cerv Spine 4 or 5 Viewson Cerv Spine 4 or 5 Views [facility] Imaging Services [address] [place] [address] Cerv Spine 4 or 5 Views MR#: [id number] Acct: [id number] Name: Jose PIEDRA Rep #: [id number] : 1940 F 83 From: Harpal Lomeli MD PCP: Dr. Ronak Escalante MD Status: REG CLI Study: Cerv Spine 4 or 5 Views Date of Exam: 10/16/23 Exam# [id number] Ordering Dr: Tanner Neal MD [id number] STUDY: X-RAY - CERVICAL SPINE REASON FOR [...] Tanner Neal MD; Dr. Ronak Escalante MD Pay Clerk: Signed Normal [facility] CAR[place]ORDon 03-19-2023 [place] Patient Choice Patient Name: KARRI PIEDRA Date of : 1940 [facility] 02-26-2023 [facility] Next Site of Care Admission Date: 02/18/2023 06:15 PM Patient Name: KARRI PIEDRA Location: [address] [id number] A Date of : 1940 Placement Information Referral Type:Custodial/SNF - New Referral ID:[id number] Provider Name:[facility] Address 1:[address] [facility] Phone Number: Address 2: Fax Number: [facility]:[place] Selection Factors:Patient/Family Choice State:[facility] [place] Spoke to admissions [facility] patient has been approved to be admitted. Spoke to patient's spouse Sami and son Aaron both expressed support for plan to be transferred later today. Updated patient she expressed support for plan denies thoughts of self-harm. All the above aware patient will be transported via ambulance to the [facility]. [facility] [place] Discharge transporta tion arranged for 2:[address] [facility]. Will inform Dr. Emerson Gasca SW, unit staff and [facility]. [facility] IDNon 02-26-2023 IDN Problem: Knowledge D eficit [...] Problem Interventions Goal: Dietary Supplements Outcome: Progressing [facility] Progress Noteon 02-26-2023 Progress Note Security and ambulan ce transport services here to take patient to [facility]. Patient pleasant and cooperative, all belongings including hearing aids, typing bookkeeper and home medication given to patient and patient verified that they were there. Patient agrees with discharge to facility. [facility] Progress Note Report called to [facility] Progress Note Medical bed : count includes the [facility] sed mobility, uses wheelchair. Patient up slow, [...] with help. PRN's: none so far. Normal [facility] Progress Note PHYSICAL THERAPY [facility] Treatment Note Name/MRN: Karri Piedra ([id number]) Date of : 1940 Age: 83 y.o. Room/Bed: S4-113/S4-113 A Discharge Recommendation: Longterm Facility, Patient would benefit from continued therapy [...] standing at irving rail, forward facing with fifi hands on rail for support Device(s) used: [...] 25 Minutes (gait, FA) Lauren Arvizu, PT Normal [facility] Progress Note Patient refused AM l ab draw. Rescheduled to 02/27/23 Normal [facility] CARECOORDon 02-25-2023 [facility] TCT, updated, fam at tempting to find facility in [place] Normal [facility] [place] TCT son, l/m Normal [facility] [place] TCT , l/m #3 Normal [facility] CBC WITH AUTO DIFFERENTIALon 02-25-2023 Basophils (Bld) [#/Vol] 0.0 10*3/uL Normal 0.0-0.2 [facility] Comment on above: Performed By: #### L AB18, [id number] #### Cinder Crew Worker: ION MOURA ([id number]) [facility] ([facility]) [address] [place] [address] Basophils/100 WBC (Bld) 0.2 % Normal 0.0-2.0 [facility] Comment on above: Performed By: #### L AB18, [id number] #### Cinder Crew Worker: ION MOURA ([id number]) [facility] ([facility]) [address] [place] [address] [place] Eosinophils (Bld) [#/Vol] 0.2 10*3/uL Normal 0.0-0.5 [facility] Comment on above: Performed By: #### L AB18, [id number] #### Cinder Crew Worker: ION MOURA ([id number]) [facility]) [address] [place] [address] Eosinophils/100 WBC (Bld) 2.2 % Normal 1.0-6.0 [facility] Comment on above: Performed By: #### L AB18, [id number] #### Cinder Crew Worker: ION MOURA ([id number]) [facility]) [address] [place] [address] Erythrocyte distribution width (RBC) [Ratio] 15.3 % High 11.5-14.5 [facility] Comment on above: Performed By: #### L AB18, [id number] #### Cinder Crew Worker: ION MOURA ([id number]) [facility]) [address] [place] [address] ERYTHROCYTE MEAN CORPUSCULAR HEMOGLOBIN CONCENTRATION (G/DL) BY AUTOMATED 33.3 % Normal 32.0-36.0 [facility] Comment on above: Performed By: #### L AB18, [id number] #### Cinder Crew Worker: ION MOURA ([id number]) [facility]) [address] [place] [address] Hematocrit (Bld) [Volume fraction] 36.5 % Normal 35.0-47.0 [facility] Comment on above: Performed By: #### L AB18, [id number] #### Cinder Crew Worker: ION MOURA ([id number]) [facility]) [address] [place] [address] Hemoglobin (Bld) [Mass/Vol] 12.2 g/dL Normal 11.7-16.0 [facility] Comment on above: Performed By: #### L AB18, [id number] #### Cinder Crew Worker: ION MOURA ([id number]) [facility]) [address] [place] [address] [place] Lymphocytes (Bld) [#/Vol] 1.8 10*3/uL Normal 1.0-4.3 [facility] Comment on above: Performed By: #### L AB18, [id number] #### Cinder Crew Worker: ION MOURA ([id number]) [facility]) [address] [place] [address] Lymphocytes/100 WBC (Bld) 25.9 % Normal 20.0-40.0 [facility] Comment on above: Performed By: #### L AB18, [id number] #### Cinder Crew Worker: ION MOURA ([id number]) [facility] ([facility]) [address] [place] [address] MCH (RBC) [Entitic mass] 28.8 pg Normal 26.0-34.0 [facility] Comment on above: Performed By: #### L AB18, [id number] #### Cinder Crew Worker: ION MOURA ([id number]) [facility] ([facility]) [address] [place] [address] MCV (RBC) [Entitic vol] 86.3 fL Normal 80.0-98.0 [facility] Comment on above: Performed By: #### L AB18, [id number] #### Cinder Crew Worker: ION MOURA ([id number]) [facility]) [address] [place] [address] Monocytes (Bld) [#/Vol] 0.5 10*3/uL Normal 0.0-0.8 [facility] Comment on above: Performed By: #### L AB18, [id number] #### Cinder Crew Worker: ION MOURA ([id number]) [facility]) [address] [place] [address] [place] Monocytes/100 WBC (Bld) 7.2 % Normal 2.0-10.0 [facility] Comment on above: Performed By: #### L AB18, [id number] #### Cinder Crew Worker: ION MOURA ([id number]) [facility]) [address] [place] [address] [place] Neutrophils (Bld) [#/Vol] 4.5 10*3/uL Normal 1.8-7.0 [facility] Comment on above: Performed By: #### L AB18, [id number] #### Cinder Crew Worker: ION MOURA ([id number]) [facility]) [address] [place] [address] Neutrophils/100 WBC (Bld) 64.5 % Normal 40.0-80.0 [facility] Comment on above: Performed By: #### L AB18, [id number] #### Cinder Crew Worker: ION MOURA ([id number]) [facility] ([facility]) [address] [place] [address] NRBC (PER 100 WBCS) BY AUTOMATED COUNT 0.0 /100 WBCs Normal 0.0-2.0 [facility] Comment on above: Performed By: #### L AB18, [id number] #### Cinder Crew Worker: ION MOURA ([id number]) [facility] ([facility]) [address] [place] [address] Platelet mean volume (Bld) [Entitic vol] 9.1 fL Normal 7.4-12.4 [facility] Comment on above: Performed By: #### L AB18, [id number] #### Cinder Crew Worker: ION MOURA ([id number]) [facility] ([facility]) [address] [place] [address] [place] Platelets (Bld) [#/Vol] 273 10*3/uL Normal 140-440 [facility] Comment on above: Performed By: #### L AB18, [id number] #### Cinder Crew Worker: ION MOURA ([id number]) [facility] ([facility]) [address] [place] [address] [place] RBC (Bld) [#/Vol] 4.23 10*6/uL Normal 3.8-5.20 [facility] Comment on above: Performed By: #### L AB18, [id number] #### Cinder Crew Worker: ION MOURA ([id number]) [facility]) [address] [place] [address] [place] WBC (Bld) [#/Vol] 7.0 10*3/uL Normal 3.6-10.7 [facility] Comment on above: Performed By: #### L AB18, [id number] #### Cinder Crew Worker: ION MOURA ([id number]) [facility] ([facility]) [address] [place] [address] COMPREHENSIVE METABOLIC PANE Lenin 02-25-2023 Albumin [Mass/Vol] 3.8 g/dL Normal 3.5-5.0 [facility] Comment on above: Performed By: #### L AB18, [id number] #### Cinder Crew Worker: ION MOURA ([id number]) [facility] ([facility]) [address] [place] [address] ALP [Catalytic activity/Vol] 80 U/L Normal 38-126 [facility] Comment on above: Performed By: #### L AB18, [id number] #### Cinder Crew Worker: ION MOURA ([id number]) [facility] ([facility]) [address] [place] [address] ALT [Catalytic activity/Vol] 35 U/L High 0-34 [facility] Comment on above: Performed By: #### L AB18, [id number] #### Cinder Crew Worker: ION MOURA ([id number]) [facility] ([facility]) [address] [place] [address] Anion gap [Moles/Vol] 9 mmol/L Normal 3-13 [facility] Comment on above: Performed By: #### L AB18, [id number] #### Cinder Crew Worker: ION MOURA ([id number]) [facility] ([facility]) [address] [place] [address] AST [Catalytic activity/Vol] 39 U/L Normal 15-46 [facility] Comment on above: Performed By: #### L AB18, [id number] #### Cinder Crew Worker: ION MOURA ([id number]) [facility]) [address] [place] [address] Bilirubin [Mass/Vol] 0.3 mg/dL Normal 0.2-1.3 [facility] Comment on above: Performed By: #### L AB18, [id number] #### Cinder Crew Worker: ION MOURA ([id number]) [facility] [address] [place] [address] Calcium [Mass/Vol] 9.3 mg/dL Normal 8.4-10.4 [facility] Comment on above: Performed By: #### L AB18, [id number] #### Cinder Crew Worker: ION MOURA ([id number]) [facility] [address] [place] [address] Chloride [Moles/Vol] 102 mmol/L Normal 98-107 [facility] Comment on above: Performed By: #### L AB18, [id number] #### Cinder Crew Worker: ION MOURA ([id number]) [facility] ([facility]) [address] [place] [address] CO2 [Moles/Vol] 23 mmol/L Normal 22-30 [facility] Comment on above: Performed By: #### L AB18, [id number] #### Cinder Crew Worker: ION MOURA ([id number]) [facility] [address] [place] [address] Creatinine [Mass/Vol] 0.49 mg/dL Low 0.52-1.04 [facility] Comment on above: Performed By: #### L AB18, [id number] #### Cinder Crew Worker: ION MOURA ([id number]) [facility] ([facility]) [address] [place] [address] GLOMERULAR FILTRATION RATE ML/MIN/1.73 SQ M.PREDICTED >90.0 Normal >60.0 [facility] Comment on above: Result Comment: Calc ulation based on the Chronic Kidney Disease Epidemiology Collaboration (CKD-EPI) equation refit without adjustment for race Performed By: #### L AB18, [id number] #### Cinder Crew Worker: ION MOURA ([id number]) [facility] [address] [place] [address] [place] Glucose [Mass/Vol] 172 mg/dL High 70-100 [facility] Comment on above: Performed By: #### L AB18, [id number] #### Cinder Crew Worker: ION MOURA ([id number]) [facility]) [address] [place] [address] Potassium [Moles/Vol] 4.4 mmol/L Normal 3.5-5.1 [facility] Comment on above: Performed By: #### L AB18, [id number] #### Cinder Crew Worker: ION MOURA ([id number]) [facility]) [address] [place] [address] Protein [Mass/Vol] 6.8 g/dL Normal 6.3-8.2 [facility] Comment on above: Performed By: #### L AB18, [id number] #### Cinder Crew Worker: ION MOURA ([id number]) [facility]) [address] [place] [address] Sodium [Moles/Vol] 134 mmol/L Low 135-145 [facility] Comment on above: Performed By: #### L AB18, [id number] #### Cinder Crew Worker: ION MOURA ([id number]) [facility]) [address] [place] [address] Urea nitrogen [Mass/Vol] 15 mg/dL Normal 7-17 [facility] Comment on above: Performed By: #### L AB18, [id number] #### Cinder Crew Worker: ION MOURA ([id number]) [facility]) [address] [place] [address] Consulton 02-25-2023 Consult [facility] - Infectious Diseases Advanced [...] PRN Yumiko Gasca MD 650 mg at 02/24/232156 Or acetaminophen (Tylenol) suppository 650 mg 650 mg Rectal q6h PRN Yumiko Gasca MD amoxicillin-clavulanate (Augmentin) 875-125 MG per tablet 1 tablet 875 mg Oral 2 times per day Amelia [place] PA-C aspirin EC tablet 81 mg 81 mg Oral Daily Arjun Cornell MD 81 mg at 02/25/23 0930 atorvastatin (Lipitor) tablet 40 mg 40 mg Oral Daily Arjun Cornell MD 40 mg at 02/24/232157 deutetrabenazine (Austedo) tablet 9 mg (patient's own [...] Nightly Arjun Cornell MD 18 Units at 12/18/23 2157 Insulin Lispro (Humalog) injection 0-6 Units 0-6 Units SubCUTAneous TID BREANNE Gan CNP 1 Units at 02/20/23 0835 And Insulin Lispro (Humalog) injection 0-6 Units 0-6 Units SubCUTAneous Nightly Beatriz BREANNE Soriano CNP lisinopril tablet 20 mg 20 mg Oral Daily Arjun Cornell MD 20 mg at 02/25/23 0930 [Held by provider] metFORMIN (Glucophage) tablet 1,000 mg 1,000 mg Oral BID BREANNE Gonzalez CNP 1,000 mg at 02/25/23 0930 mirtazapine (Remeron) tablet 15 mg 15 mg Oral Nightly Yumiko Gasca MD 15 mg at 02/24/232156 OLANZapine (ZyPREXA) tablet 2.5 mg 2.5 mg [...] Yumiko Gasca MD 50 mg at 02/24/23 2158 Allergies: Allergies Allergen Reactions Codeine Rash Morphine [...] Insecurity (02/19/2023) [place] (more content not included)... [facility] Consult Department of Heart Coordinator al Medicine Gastroenterology Attending Consult Note Reason [...] 650 mg, 650 mg, Rectal, q6h PRN, Yumiok Gasca MD aspirin EC tablet 81 mg, 81 mg, Oral, Daily, Arjun Cornell MD, 81 mg at 02/24/23 0956 atorvastatin (Lipitor) tablet 40 mg, 40 mg, Oral, Daily, Arjun Cornell MD, 40 mg at 02/24/23 215 ciprofloxacin (Cipro) tablet 500 mg, 500 mg, Oral, 2 times per day, Beatriz Soriano APRN - CORPORATE REAL ESTATE SPECIALIST, 500 mg at 02/24/23 2219 deutetrabenazine (Austedo) tablet 9 mg (patient's own [...] Daily, Arjun Cornell MD, 12.5 mg at 02/24/23 0956 Influenza Vac A&B SA Adj quadrivalent (Fluad) [...] injection 0-6 Units, 0-6 Units, SubCUTAneous, Nightly, BREANNE Gonzalez CNP lisinopril tablet 20 mg, 20 mg, Oral, Daily, Arjun Cornell MD, 20 mg at 02/24/23 0957 metFORMIN (Glucophage) tablet 1,000 mg, 1,000 mg, Oral, BID WC, BREANNE Gonzalez CNP, 1,000 mg at 02/24/23 1725 metroNIDAZOLE (Flagyl) tablet 500 mg, 500 mg, Oral, q8h, Beatriz KainBREANNE CNP, 500 mg at 02/25/23 0633 mirtazapine (Remeron) tablet 15 mg, 15 mg, Oral, Nightly, Yumiko Gasca MD, 15 mg at 02/24/232156 OLANZapine (ZyPREXA) tablet 2.5 mg, 2.5 mg, [...] Yumiko Gasca MD, 50 mg at 02/24/23 2158 Past Medical History: Active Ambulatory Problems Diagnosis [...] Health Fin (more content not included)... Normal [facility] GROUPNOTEon 02-25-2023 GROUPNOTE Department: [facility] TIVITIES THERAPY Group Topic: Other Group Date: 02/25/2023 Start Time: 1630 End Time: 1700 Facilitators: Spring Killian Number of Participants: 3 Group Name: word search puzzles Treatment Modality: Leisure Development Purpose: enhance coping skills Summary: To expose patients to healthy leisure outlets. Name: Karri Piedra Date of : 1940 MR: [id number] Mental Status Exam: Appearance: Good eye contact Affect: Restricted Behavior: Pleasant Alertness: Alert Speech: Appropriate Cognition: [place] Level/Quality of Participation: engaged Interactions with others: [...] Dysphagia Confusion Chronic insomnia Tardive dyskinesia Normal [facility] IDNon 02-25-2023 IDN Problem: Knowledge D eficit [...] Interventions Goal: Dietary Supplements Outcome: Progressing Normal [facility] Progress Noteon 02-25-2023 Progress Note Patient is [...] Denies any other questions or concerns. Call lig within reach. Q 15 min safety checks maintained. [facility] Progress Note Pt A&Ox2-3. Pt calm and cooperative, anxious and forgetful at times. Pt compliant with meds crushed. Pt denies pain and denies SI/HI/AVH. Pt x1 assist to wheelchair, continent, and somewhat dependent of ADL's. Pt reports fair sleep and eating about 75% of meals. Opportunity given for questions and concerns to be expressed. Safety maintained, will continue to monitor pt. [facility] Progress Note PHYSICAL THERAPY [facility] Name/MRN: Karri Piedra ([id number]) Date: 02/25/2023 PT treatment attempted 02/25. Withheld due to pt stating she was awaiting to discharge within 20 minutes. Senia Morrell, SPT [facility] Progress Note Handing over report of this pt received from EYAL Cavazos. I am now taking care of this pt till the end of this shift [facility] Progress Note Pt Sami rios nd Maru Rodriguez called this evening to inform staff of their concerns regarding patients' health. Family does not want pt to be discharged to [facility] tomorrow and think it is important for patient to stay admitted to hospital for longer observation due to patient recent abdominal pain. Maru Rodriguez phone number is and would like to speak with SW and Physician tomorrow morning. This RN will report to AM family sociologist's concerns. [facility] CARECOORDon 2023 ASHLEY Spoke to patient's gerri Gallardo multiple times throughout the day. Talked about his preferences for placement. Encouraged [facility] agreed to accept patient. Other facilities he requested have either not responded in care port or have declined. [facility] CT ABDOMEN PELVIS WO IV CONT TEDDYThomas 2023 CT ABDOMEN PELVIS WO IV CONTRAST [...] Date/Time: 2023 12:59 PM EST LLQ PAIN [facility] IDNon 2023 IDN Problem: Knowledge D [...] Problem Interventions Goal: Dietary Supplements Outcome: Progressing [facility] IDN Problem: Knowledge D eficit Goal: [...] Problem Interventions Goal: Dietary Supplements Outcome: Progressing [facility] Nursing Noteon 2023 Nursing Note Patient [...] stable see flow sheet. Notified Beatriz Soriano RECORDS MANAGEMENT ASSISTANT that CT of her abdomen is resulted now at 1416 in secure chat. Normal [facility] Progress Noteon 2023 Progress Note Patient hit call lig ht asking for assistance to restroom. Staff assisted [...] times. Reports she's willing to go to [facility] for longer observations if needed to be [facility] [...] PO PRN to help with pain at 2156. Encouraged to use call light for any questions or concerns. Staff will continue to monitor. At approximately 2209 pt continued to c/o abdominal pain and was asking for more medication. Dr. Crane was notified. Orders for Bentyl 20 mg and Ibuprofen 400 mg PO ordered for pt. Pt took medication cooperatively at 2218. Given water. Encouraged to seek out staff with any questions or concerns. Call light within reach. Staff will continue to monitor. Follow up for PRN medication. Pt reports a decrease in pain and denies any abdominal discomfort at this time. Normal [facility] Progress Note TCT lm Normal [facility] Progress Note Patient fixated on b eing [...] that we have to wait on the rope silica machine operator to connect the call. Safety maintained Normal [facility] CARECOORDon 02-23-2023 [place] IMM letter givne to patient. Normal [facility] COMPREHENSIVE METABOLIC PANE Lenin 02-23-2023 Albumin [Mass/Vol] 3.9 g/dL Normal 3.5-5.0 [facility] Comment on above: Performed By: #### L AB18, [id number] #### Cinder Crew Worker: ION MOURA ([id number]) [facility]) [address] [place] [address] ALP [Catalytic activity/Vol] 78 U/L Normal 38-126 [facility] Comment on above: Performed By: #### L AB18, [id number] #### Cinder Crew Worker: ION MOURA ([id number]) [facility]) [address] [place] [address] ALT [Catalytic activity/Vol] 39 U/L High 0-34 [facility] Comment on above: Performed By: #### L AB18, [id number] #### Cinder Crew Worker: ION MOURA ([id number]) [facility]) [address] [place] [address] Anion gap [Moles/Vol] 8 mmol/L Normal 3-13 [facility] Comment on above: Performed By: #### L AB18, [id number] #### Cinder Crew Worker: ION OMURA ([id number]) [facility]) [address] [place] [address] AST [Catalytic activity/Vol] 41 U/L Normal 15-46 [facility] Comment on above: Performed By: #### L AB18, [id number] #### Cinder Crew Worker: ION MOURA ([id number]) [facility]) [address] [place] [address] Bilirubin [Mass/Vol] 0.5 mg/dL Normal 0.2-1.3 [facility] Comment on above: Performed By: #### L AB18, [id number] #### Cinder Crew Worker: ION MOURA ([id number]) [facility]) [address] [place] [address] Calcium [Mass/Vol] 9.4 mg/dL Normal 8.4-10.4 [facility] Comment on above: Performed By: #### L AB18, [id number] #### Cinder Crew Worker: ION MOURA ([id number]) [facility]) [address] [place] [address] Chloride [Moles/Vol] 101 mmol/L Normal 98-107 [facility] Comment on above: Performed By: #### L AB18, [id number] #### Cinder Crew Worker: ION MOURA ([id number]) [facility] HOSPITAL ([facility]) [address] [place] [address] CO2 [Moles/Vol] 25 mmol/L Normal 22-30 [facility] Comment on above: Performed By: #### L AB18, [id number] #### Cinder Crew Worker: ION MOURA ([id number]) [facility]) [address] [place] [address] Creatinine [Mass/Vol] 0.44 mg/dL Low 0.52-1.04 [facility] Comment on above: Performed By: #### L AB18, [id number] #### Cinder Crew Worker: ION MORUA ([id number]) [facility]) [address] [place] [address] GLOMERULAR FILTRATION RATE ML/MIN/1.73 SQ M.PREDICTED >90.0 Normal >60.0 [facility] Comment on above: Result Comment: Calc ulation based on the Chronic Kidney Disease Epidemiology Collaboration (CKD-EPI) equation refit without adjustment for race Performed By: #### L AB18, [id number] #### Cinder Crew Worker: ION MOURA ([id number]) [facility]) [address] [place] [address] Glucose [Mass/Vol] 185 mg/dL High 70-100 [facility] Comment on above: Performed By: #### L AB18, [id number] #### Cinder Crew Worker: ION MOURA ([id number]) [facility]) [address] [place] [address] Potassium [Moles/Vol] 4.0 mmol/L Normal 3.5-5.1 [facility] Comment on above: Performed By: #### L AB18, [id number] #### Cinder Crew Worker: ION MOURA ([id number]) [facility]) [address] [place] [address] Protein [Mass/Vol] 6.9 g/dL Normal 6.3-8.2 [facility] Comment on above: Performed By: #### L AB18, [id number] #### Cinder Crew Worker: ION MOUAR ([id number]) [facility] ([facility]) [address] [place] [address] Sodium [Moles/Vol] 134 mmol/L Low 135-145 [facility] Comment on above: Performed By: #### L AB18, [id number] #### Cinder Crew Worker: ION MOURA ([id number]) [facility]) [address] [place] [address] Urea nitrogen [Mass/Vol] 11 mg/dL Normal 7-17 [facility] Comment on above: Performed By: #### L AB18, [id number] #### Cinder Crew Worker: ION MOURA ([id number]) [facility]) [address] [place] [address] [place] IDNon 02-23-2023 IDN Problem: Knowledge D eficit [...] Interventions Goal: Dietary Supplements Outcome: Progressing Normal [facility] Progress Noteon 02-23-2023 Progress Note Unable to [...] to at sink to brush teeth. Normal [facility] Progress Note Urine sample collect ed, Dr. Blair notified of results. Patient continues to c/o pain to left lower abdomin, KUB and CMP ordered per Dr. Blair. Patient with diarrhea x4 episodes, c.diff and GI panel ordered, to be collected if pt continues with diarrhea. Safety maintained Normal [facility] COMPLETE URINALYSISon 2022 BACTERIA (#/HPF) IN URINE Few Abnormal Negative [facility] Comment on above: Performed By: #### L AB18, [id number] #### Cinder Crew Worker: ION MOURA ([id number]) [facility] ([facility]) [address] [place] [address] BILIRUBIN, TOTAL PRESENCE IN URINE Negative Normal Negative [facility] Comment on above: Performed By: #### L AB18, [id number] #### Cinder Crew Worker: ION MOURA ([id number]) [facility] ([facility]) [address] [place] [address] Clarity (U) Clear Normal Clear [facility] Comment on above: Performed By: #### L AB18, [id number] #### Cinder Crew Worker: ION MOURA ([id number]) [facility] ([facility]) [address] [place] [address] Color (U) Colorless Normal Lt. Yellow [facility] Comment on above: Performed By: #### L AB18, [id number] #### Cinder Crew Worker: ION MOURA ([id number]) [facility]) [address] [place] [address] GLUCOSE (MG/DL) IN URINE Normal Normal Normal (<70) [facility]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 MOURA ([id number]) [facility]) [address] [place] [address] HEMOGLOBIN PRESENCE IN URINE Negative Normal Negative [facility] Comment on above: Performed By: #### L AB18, [id number] #### Cinder Crew Worker: ION MOURA ([id number]) [facility] ([facility]) [address] [place] [address] HYALINE CASTS (#/LPF) IN URINE SEDIMENT BY MICROSCOPY Negative Normal Negative [facility] Comment on above: Performed By: #### L AB18, [id number] #### Cinder Crew Worker: ION MOURA ([id number]) [facility] ([facility]) [address] [place] [address] Ketones Ql (U) Negative Normal Negative [facility] Comment on above: Performed By: #### L AB18, [id number] #### Cinder Crew Worker: ION MOURA ([id number]) [facility] ([facility]) [address] [place] [address] LEUKOCYTE ESTERASE PRESENCE IN URINE BY TEST STRIP 75 Rosey/uL Abnormal Negative [facility] Comment on above: Performed By: #### L AB18, [id number] #### Cinder Crew Worker: ION MOURA ([id number]) [facility]) [address] [place] [address] NITRITE PRESENCE IN URINE Negative Normal Negative [facility] Comment on above: Performed By: #### L AB18, [id number] #### Cinder Crew Worker: ION MOURA ([id number]) [facility]) [address] [place] [address] pH (U) 6.0 [pH] Normal 5.0-8.0 [facility] Comment on above: Performed By: #### L AB18, [id number] #### Cinder Crew Worker: ION MOURA ([id number]) [facility]) [address] [place] [address] Protein (U) [Mass/Vol] Negative Normal Negative [facility] Comment on above: Performed By: #### L AB18, [id number] #### Cinder Crew Worker: ION MOURA ([id number]) [facility]) [address] [place] [address] RBC (#/HPF) IN URINE SEDIMENT 0-2 Normal 0-2 [facility] Comment on above: Performed By: #### L AB18, [id number] #### Cinder Crew Worker: ION MOURA ([id number]) [facility]) [address] [place] [address] Specific gravity (U) [Rel density] 1.006 Normal 1.005-1.030 [facility] Comment on above: Performed By: #### L AB18, [id number] #### Cinder Crew Worker: ION MOURA ([id number]) [facility]) [address] [place] [address] SQUAMOUS EPITHELIAL CELLS (#/HPF) IN URINE SEDIMENT 0-2 Normal 3-5 [facility] Comment on above: Performed By: #### L AB18, [id number] #### Cinder Crew Worker: ION MOURA ([id number]) [facility] ([facility]) [address] [place] [address] UROBILINOGEN (MG/DL) IN URINE Normal Normal Normal (0-1) [facility] Comment on above: Performed By: #### L AB18, [id number] #### Cinder Crew Worker: ION MOURA ([id number]) [facility] ([facility]) [address] [place] [address] WBC (LEUKOCYTE) (#/HPF) IN URINE SEDIMENT 3-5 Normal 0-5 [facility] Comment on above: Performed By: #### L AB18, [id number] #### Cinder Crew Worker: ION MOURA ([id number]) [facility] ([facility]) [address] [place] [address] COMPREHENSIVE METABOLIC PANE Lenin 02-18-2023 Albumin [Mass/Vol] 4.2 g/dL Normal 3.5-5.0 [facility] Comment on above: Performed By: #### L AB18, [id number] #### Cinder Crew Worker: ION MOURA ([id number]) [facility] ([facility]) [address] [place] [address] ALP [Catalytic activity/Vol] 113 U/L Normal 38-126 [facility] Comment on above: Performed By: #### L AB18, [id number] #### Cinder Crew Worker: ION MOURA ([id number]) [facility] ([facility]) [address] [place] [address] ALT [Catalytic activity/Vol] 60 U/L High 0-34 [facility] Comment on above: Performed By: #### L AB18, [id number] #### Cinder Crew Worker: ION MOURA ([id number]) [facility] ([facility]) [address] [place] [address] Anion gap [Moles/Vol] 7 mmol/L Normal 3-13 [facility] Comment on above: Performed By: #### L AB18, [id number] #### Cinder Crew Worker: ION MOURA ([id number]) [facility] [address] [place] [address] [place] AST [Catalytic activity/Vol] 55 U/L High 15-46 [facility] Comment on above: Performed By: #### L AB18, [id number] #### Cinder Crew Worker: ION MOURA ([id number]) [facility]) [address] [place] [address] Bilirubin [Mass/Vol] 0.5 mg/dL Normal 0.2-1.3 [facility] Comment on above: Performed By: #### L AB18, [id number] #### Cinder Crew Worker: ION MOURA ([id number]) [facility] ([facility]) [address] [place] [address] Calcium [Mass/Vol] 9.9 mg/dL Normal 8.4-10.4 [facility] Comment on above: Performed By: #### L AB18, [id number] #### Cinder Crew Worker: ION MOURA ([id number]) [facility] [address] [place] [address] [place] Chloride [Moles/Vol] 104 mmol/L Normal 98-107 [facility] Comment on above: Performed By: #### L AB18, [id number] #### Cinder Crew Worker: ION MOURA ([id number]) [facility] ([facility]) [address] [place] [address] [place] CO2 [Moles/Vol] 26 mmol/L Normal 22-30 [facility] Comment on above: Performed By: #### L AB18, [id number] #### Cinder Crew Worker: ION MOURA ([id number]) [facility] ([facility]) [address] [place] [address] [place] Creatinine [Mass/Vol] 0.49 mg/dL Low 0.52-1.04 [facility] Comment on above: Performed By: #### L AB18, [id number] #### Cinder Crew Worker: ION MOURA ([id number]) [facility]) [address] [place] [address] GLOMERULAR FILTRATION RATE ML/MIN/1.73 SQ M.PREDICTED >90.0 Normal >60.0 [facility] Comment on above: Result Comment: Calc ulation based on the Chronic Kidney Disease Epidemiology Collaboration (CKD-EPI) equation refit without adjustment for race Performed By: #### L AB18, [id number] #### Cinder Crew Worker: ION MOURA ([id number]) [facility]) [address] [place] [address] Glucose [Mass/Vol] 163 mg/dL High 70-100 [facility] Comment on above: Performed By: #### L AB18, [id number] #### Cinder Crew Worker: ION MOURA ([id number]) [facility]) [address] [place] [address] Potassium [Moles/Vol] 4.0 mmol/L Normal 3.5-5.1 [facility] Comment on above: Performed By: #### L AB18, [id number] #### Cinder Crew Worker: ION MOURA ([id number]) [facility] ([facility]) [address] [place] [address] [place] Protein [Mass/Vol] 7.7 g/dL Normal 6.3-8.2 [facility] Comment on above: Performed By: #### L AB18, [id number] #### Cinder Crew Worker: ION MOURA ([id number]) [facility] ([facility]) [address] [place] [address] [place] Sodium [Moles/Vol] 137 mmol/L Normal 135-145 [facility] Comment on above: Performed By: #### L AB18, [id number] #### Cinder Crew Worker: ION MOURA ([id number]) [facility]) [address] [place] [address] [place] Urea nitrogen [Mass/Vol] 7 mg/dL Normal 7-17 [facility] Comment on above: Performed By: #### L AB18, [id number] #### Cinder Crew Worker: ION MOURA ([id number]) [facility]) [address] [place] [address] CT HEAD WO IV CONTRASTon CT HEAD WO IV CONTRAST Patient Name: [facility] 1940 [id number] Exam Date/Time: 02/18/2023 20:55 Procedure: CT HEAD [...] Signed Date/Time: 02/18/2023 9:02 PM EST Normal [facility] DRUGS OF ABUSEon 02-18-2023 AMPHETAMINE SCREEN Negative Normal [facility] Comment on above: Performed By: #### L AB18, [id number] #### Cinder Crew Worker: ION MOURA ([id number]) [facility] ([facility]) [address] [place] [address] BARBITURATES SCREEN Negative Normal [facility] Comment on above: Performed By: #### L AB18, [id number] #### Cinder Crew Worker: ION MOURA ([id number]) [facility] ([facility]) [address] [place] [address] BENZODIAZEPINE SCREEN Negative Normal [facility] Comment on above: Performed By: #### L AB18, [id number] #### Cinder Crew Worker: ION MOURA ([id number]) [facility]) [address] [place] [address] COCAINE METAB. SCREEN Negative Normal [facility] Comment on above: Performed By: #### L AB18, [id number] #### Cinder Crew Worker: ION MOURA ([id number]) [facility] ([facility]) [address] [place] [address] METHADONE SCREEN Negative Normal [facility] Comment on above: Performed By: #### L AB18, [id number] #### Cinder Crew Worker: ION MOURA ([id number]) [facility] ([facility]) [address] [place] [address] OPIATES SCREEN Negative Normal [facility] Comment on above: Performed By: #### L AB18, [id number] #### Cinder Crew Worker: ION MOURA ([id number]) [facility] ([facility]) [address] [place] [address] OXYCODONE SCREEN Negative Normal [facility] Comment on above: Performed By: #### L AB18, [id number] #### Cinder Crew Worker: ION MOURA ([id number]) [facility] ([facility]) [address] [place] [address] PHENCYCLIDINE SCREEN Negative Normal [facility] Comment on above: Result Comment: ORDE R COMMENTS: The expected value for all [...] separate order. Performed By: #### L AB18, [id number] #### Cinder Crew Worker: ION MOURA ([id number]) [facility] ([facility]) [address] [place] [address] ECG 12-LEADon 02-18-2023 ECG 12-LEAD IMPRESSION: Sinus rhythm Inferior infarct, old Electronically Signed On 02-18-2023 19:45:03 EST by Rosas Vogel [facility] ED Nursing Noteon 02-18-2023 ED Nursing Note Back from CT Rajwinder Isaac 02/18/232053 [facility] ED Nursing Note Going to CT Rajwinder Isaac 02/18/232045 [facility] ED Nursing Note Dr Gallardo in 47 w/ pt [facility] Isaac 02/18/232043 [facility] ED Nursing Note Pt now in rm, assist ed into bed by Justo BIRCH [facility] Isaac 02/18/232013 [facility] ED Nursing Note Pt taken to [facility] Isaac 02/18/232005 [facility] ED Nursing Note Registration talking to pt in room 47 Chary Miller 02/18/231958 [facility] ED Nursing Note Changed into hospita l gowns and socks. Wanded by protective services. 1 bag of belongings Chary Miller 02/18/231950 [facility] ED Nursing Note Dr. Olmstead talking w ith pt in room 47 Chary Miller 02/18/23 1950 [facility] ED Nursing Note Pt to 47 to complete triage process Chary Miller 02/18/231941 [facility] ED Provider Noteon 3 ED Provider Note [...] he asked her what she wanted for [place] and patient stated, I wont be here [...] states she was investigated for UTI at [facility] recently for these symptoms and it [...] reviewed, positives and pertinent negatives as per [facility]. All other systems were reviewed and are [...] 4.2 BILI (more content not included)... Normal [facility] ED Provider Note Emergency Department Encounter [facility] EMERGENCY DEPT Patient: Karri Piedra : 1940 Date of Evaluation: 02/18/2023 ED Supervising Physician: Karthik Olmstead DO I independently examined and evaluated Karri Piedra. This will serve as my Supervisory note as the systems eng of record and shared attestation. I did [...] her blood pressure. Discussed the case with global president who recommended medicine evaluation for admission. Medicine [...] contact the dictating provider for clarification.) Karthik Bk Ishan, DO [employer] Karthik Bourgeois Ishan, DO 02/18/23 2320 Normal [facility] ETHANOLon 02-18-2023 ETHANOL IN SER/PLAS <0.010 Normal 0.000-0.010 [facility] Comment on above: Result Comment: JODI Slater COMMENTS: NOTE: This result is for medical treatment only. Analysis performed using non-forensic procedures. Performed By: #### L AB18, [id number] #### Cinder Crew Worker: ION MOURA ([id number]) [facility] ([facility]) [address] [place] [address] SARS-COV-2 ANTIGENon 023 SARS-COV-2 ANTIGEN SARS-COV-2 ANTIGEN - BINAX Reference Negative Negative A negative result does not rule out the possibility of SARS-CoV-2 infection. NAAT-based methods should be considered for symptomatic patients presenting greater than seven days after onset of symptoms. Method: Lateral flow immunoassay. Fact sheets for healthcare providers and patients can be found at the following sites: https://www.[employer].gov/media/141 568/download https://www.[employer].gov/media/141 699/download Normal [facility] Comment on above: Performed By: #### L [id number] #### Cinder Crew Worker: ION MOURA ([id number]) [facility] ([facility]) [address] [place] [address] Absolute lymphocyte counton 11-06-2021 Lymphocytes Auto (Unsp spec) [#/Vol] 2.25 10*3/uL 0.83-4.51 [facility] Work Phone: [phone] Basophil percentageon 2021 Basophils/100 WBC (Bld) 0.7 % 0-1 [facility] Work Phone: [phone] Bilirubin [Mass/Vol] 0.50 mg/dL 0.20-1.00 [facility] Work Phone: [phone] Comment on above: For patients on eltr ombopag therapy, use of Dimension [place] TBIL is not recommended. Chloride [Moles/Vol] 103 mmol/L 98-107 [facility] Work Phone: [phone] Cholesterol [Mass/Vol] 112 mg/dL <200 [facility] Work Phone: [phone] Comment on above: <200 mg/dL Desirable 200-240 mg/dL Borderline >240 mg/dL High Risk Eosinophils/100 WBC (Bld) 4.0 % 0-5 [facility] Work Phone: [phone] Glucose [Mass/Vol] 126 mg/dL 74-106 [facility] Work Phone: [phone] Comment on above: Fasting Glucose resu lt greater than or equal to 126 mg/dL suggests DIABETES MELLITUS per A.D.A. criteria. Neutrophils (Bld) [#/Vol] 5.1 10*3/uL 2.0-7.7 [facility] Work Phone: [phone] Neutrophils/100 WBC (Bld) 60.6 % 47-70 [facility] Work Phone: [phone] Potassium [Moles/Vol] 3.9 mmol/L 3.5-5.1 [facility] Work Phone: [phone] Protein [Mass/Vol] 7.0 g/dL 6.4-8.2 [facility] Work Phone: [phone] Sodium [Moles/Vol] 138 mmol/L 136-145 [facility] [facility] Work Phone: [phone] Triglyceride [Mass/Vol] 164 mg/dL <199 [facility] Work Phone: [phone] Comment on above: The drugs N-Acetylcy steine and Metamizole may falsely depress this assay.Serum Triglycerides Reference Interval Normal <150 mg/dL Borderline high 150 - 199 mg/dL High 200 - 499 mg/dL Very High > or = 500 mg/dL WBC (Bld) [#/Vol] 8.4 10*3/uL 4.4-11.0 [facility] Work Phone: [phone] Blood erythrocytes count (nu mber/volume)on 11-06-2021 RBC (Bld) [#/Vol] 4.27 10*6/uL 4.2-5.4 [facility] Work Phone: Blood hemoglobin measurement (mass/volume)on 11-06-2021 Hemoglobin (Bld) [Mass/Vol] 12.2 g/dL 12.0-15.0 [facility] Work Phone: Blood lymphocytes/100 leukoc yteson 11-06-2021 Lymphocytes/100 WBC (Bld) 26.7 % 19-41 [facility] Work Phone: Blood monocytes/100 leukocyt eson 11-06-2021 Monocytes/100 WBC (Bld) 7.8 % 0-10 [facility] Work Phone: [phone] Blood platelet mean volumeon 11-06-2021 Platelet mean volume (Bld) [Entitic vol] 13.0 fL 6.2-12.0 [facility] Work Phone: [phone] Determination of erythrocyte mean corpuscular volume (MCV)on 11-06-2021 MCV (RBC) [Entitic vol] 85.7 fL 81-99 [facility] Work Phone: [phone] Hematocrit Auto (Bld) [Volum e fraction]on 11-06-2021 Hematocrit (Bld) [Volume fraction] 36.6 % 37-47 [facility] Work Phone: [phone] Laboratory - Chemistry and C hemistry - challengeon 11-06-2021 ALP [Catalytic activity/Vol] 64 U/L 45-117 [facility] Work Phone: [phone] ALT [Catalytic activity/Vol] 29 U/L 13-56 [facility] Work Phone: [phone] CO2 [Moles/Vol] 28.0 mmol/L 21.0-32.0 [facility] Work Phone: [phone] Globulin (S) [Mass/Vol] 2.9 g/dL 2.2-4.2 [facility] Work Phone: [phone] Urea nitrogen/Creatinin e [Mass ratio] 13.2 mg/mg 10-20 [facility] Work Phone: [phone] Laboratory - Hematology and Cell countson 11-06-2021 Erythrocyte distribution width (RBC) [Entitic vol] 43.3 fL 35.1-43.9 [facility] Work Phone: [phone] Erythrocyte distribution width (RBC) [Ratio] 14.0 % 11.6-14.6 [facility] Work Phone: [phone] Immature granulocytes/100 WBC (Bld) 0.200 % 0.0-0.9 [facility] Work Phone: [phone] Comment on above: IG% - Immature Granu locytes (promyelocytes, myelocytes and metamyelocytes) > 1% indicates that a LEFT SHIFT is Present. MCH (RBC) [Entitic mass] 28.6 pg 27.0-32.0 [facility] Work Phone: [phone] Nucleated RBC/100 WBC (Bld) [Ratio] 0 % 0-5 [facility] Work Phone: [phone] MCHC Auto (RBC) [Mass/Vol]on 11-06-2021 MCHC (RBC) [Mass/Vol] 33.3 g/dL 32-36 [facility] Work Phone: No Panel Informationon 11-06 Estimated GFR (MDRD) Amer 94 mL/min >60 [facility] Work Phone: [phone] Comment on above: GFR Calc Estimated GFR (MDRD) Non-Af Amer 77 mL/min >60 [facility] Work Phone: [phone] Comment on above: Non- GFR Calc Vitamin D 25-Hydroxy 47.4 ng/mL [facility] Work Phone: [phone] Comment on above: Vitamin D 25(OH) Sta tus Range Deficiency <20 ng/mL (50nmol/L) Insufficiency 20 - 30 ng/mL (50 - 75 nmol/L) Sufficiency 30 - 100 ng/mL (75 - 250 nmol/L) Toxicity >100 ng/mL (>250 nmol/L) Platelets bldon 11-06-2021 Platelets (Bld) [#/Vol] 221 10*3/uL 150-450 [facility] Work Phone: [phone] Serum or plasma albumin tricia urement (mass/volume)on 11-06-2021 Albumin [Mass/Vol] 4.1 g/dL 3.2-5.0 [facility] Work Phone: [phone] Serum or plasma albumin/glob ulin mass ratioon 11-06-2021 Albumin/Globulin [Mass ratio] 1.4 {ratio} 0.9-2.4 [facility] Work Phone: [phone] Serum or plasma calcium tricia urement (mass/volume)on 11-06-2021 Calcium [Mass/Vol] 9.1 mg/dL 8.5-10.1 [facility] Work Phone: Serum or plasma cholesterol in HDL measurement (mass/volume)on 11-06-2021 Cholesterol in HDL [Mass/Vol] 67 mg/dL >40 [facility] Work Phone: Comment on above: The drugs N-Acetylcy steine and Metamizole may falsely depress this assay. Reference Range HDL <40 mg/dL Low HDL Cholesterol HDL >or= 60 mg/dL High HDL Cholesterol Serum or plasma cholesterol in VLDL measurement (mass/volume)on 11-06-2021 Cholesterol in VLDL [Mass/Vol] 33 mg/dL 5-40 [facility] Work Phone: Serum or plasma creatinine m easurement (mass/volume)on 11-06-2021 Creatinine [Mass/Vol] 0.76 mg/dL 0.55-1.02 [facility] Work Phone: Comment on above: The validity of the calculated GFR & GFRAA in patients over 70 years has not been determined. Clinical correlation is essential. Serum or plasma low density lipoprotein (LDL) cholesterol measurement (mass/volume)on 11-06-2021 Cholesterol in LDL [Mass/Vol] 12 mg/dL 0-130 [facility] Work Phone: Serum or plasma urea nitroge n measurement (mass/volume)on 11-06-2021 Urea nitrogen [Mass/Vol] 10 mg/dL 7-18 [facility] Work Phone: Thin prep Papanicolaou smear with manual screeningon 11-06-2021 Thin prep Papanicolaou smear with manual screening 17 U/L 15-37 [facility] Work Phone: Thin prep Papanicolaou smear with manual screening 7 5-15 [facility] Work Phone: [phone] Whole blood hemoglobin A1c/t otal hemoglobin ratio (mass fraction)on 11-06-2021 HbA1c (Bld) [Mass fraction] 6.4 % 3.8-5.6 [facility] Work Phone: Comment on above: Normal < 5.7 % Predi abetic 5.7 - 6.4 % Diabetic >or= 6.5 % Please note range changes. Absolute lymphocyte counton 07-05-2021 Lymphocytes Auto (Unsp spec) [#/Vol] 2.23 10*3/uL 0.83-4.51 [facility] Work Phone: Basophil percentageon 2021 Basophils/100 WBC (Bld) 1.2 % 0-1 [facility] Work Phone: [phone] Bilirubin [Mass/Vol] 0.40 mg/dL 0.20-1.00 [facility] Work Phone: Comment on above: For patients on eltr ombopag therapy, use of Dimension [place] TBIL is not recommended. Chloride [Moles/Vol] 103 mmol/L 98-107 [facility] Work Phone: Cholesterol [Mass/Vol] 137 mg/dL <200 [facility] Work Phone: Comment on above: <200 mg/dL Desirable 200-240 mg/dL Borderline >240 mg/dL High Risk Eosinophils/100 WBC (Bld) 2.7 % 0-5 [facility] Work Phone: Glucose [Mass/Vol] 184 mg/dL 74-106 [facility] Work Phone: Comment on above: Fasting Glucose resu lt greater than or equal to 126 mg/dL suggests DIABETES MELLITUS per A.D.A. criteria. Neutrophils (Bld) [#/Vol] 4.4 10*3/uL 2.0-7.7 [facility] Work Phone: Neutrophils/100 WBC (Bld) 59.0 % 47-70 [facility] Work Phone: Potassium [Moles/Vol] 4.0 mmol/L 3.5-5.1 [facility] Work Phone: Protein [Mass/Vol] 6.8 g/dL 6.4-8.2 [facility] Work Phone: Sodium [Moles/Vol] 137 mmol/L 136-145 [facility] Work Phone: [phone] Triglyceride [Mass/Vol] 169 mg/dL [facility] Work Phone: Comment on above: The drugs N-Acetylcy steine and Metamizole may falsely depress this assay.Serum Triglycerides Reference Interval Normal <150 mg/dL Borderline high 150 - 199 mg/dL High 200 - 499 mg/dL Very High > or = 500 mg/dL WBC (Bld) [#/Vol] 7.5 10*3/uL 4.4-11.0 [facility] Work Phone: [phone] Blood erythrocytes count (nu mber/volume)on 07-05-2021 RBC (Bld) [#/Vol] 4.41 10*6/uL 4.2-5.4 [facility] Work Phone: [phone] Blood hemoglobin measurement (mass/volume)on 07-05-2021 Hemoglobin (Bld) [Mass/Vol] 12.4 g/dL 12.0-15.0 [facility] Work Phone: [phone] Blood lymphocytes/100 leukoc yteson 07-05-2021 Lymphocytes/100 WBC (Bld) 29.7 % 19-41 [facility] Work Phone: [phone] Blood monocytes/100 leukocyt eson 07-05-2021 Monocytes/100 WBC (Bld) 7.1 % 0-10 [facility] Work Phone: [phone] Blood platelet mean volumeon 07-05-2021 Platelet mean volume (Bld) [Entitic vol] 12.4 fL 6.2-12.0 [facility] Work Phone: [phone] Determination of erythrocyte mean corpuscular volume (MCV)on 07-05-2021 MCV (RBC) [Entitic vol] 85.5 fL 81-99 [facility] Work Phone: [phone] Hematocrit Auto (Bld) [Volum e fraction]on 07-05-2021 Hematocrit (Bld) [Volume fraction] 37.7 % 37-47 [facility] Work Phone: [phone] Laboratory - Chemistry and C hemistry - challengeon 07-05-2021 ALP [Catalytic activity/Vol] 68 U/L 45-117 [facility] Work Phone: [phone] ALT [Catalytic activity/Vol] 32 U/L 13-56 [facility] Work Phone: [phone] CO2 [Moles/Vol] 29.0 mmol/L 21.0-32.0 [facility] Work Phone: [phone] Globulin (S) [Mass/Vol] 3.1 g/dL 2.2-4.2 [facility] Work Phone: [phone] Urea nitrogen/Creatinin e [Mass ratio] 16.9 mg/mg 10-20 [facility] Work Phone: [phone] Laboratory - Hematology and Cell countson 07-05-2021 Erythrocyte distribution width (RBC) [Entitic vol] 43.1 fL 35.1-43.9 [facility] Work Phone: [phone] Erythrocyte distribution width (RBC) [Ratio] 13.7 % 11.6-14.6 [facility] Work Phone: [phone] Immature granulocytes/100 WBC (Bld) 0.300 % 0.0-0.9 [facility] Work Phone: [phone] Comment on above: IG% - Immature Granu locytes (promyelocytes, myelocytes and metamyelocytes) > 1% indicates that a LEFT SHIFT is Present. MCH (RBC) [Entitic mass] 28.1 pg 27.0-32.0 [facility] Work Phone: [phone] Nucleated RBC/100 WBC (Bld) [Ratio] 0 % 0-5 [facility] Work Phone: [phone] MCHC Auto (RBC) [Mass/Vol]on 07-05-2021 MCHC (RBC) [Mass/Vol] 32.9 g/dL 32-36 [facility] Work Phone: [phone] Panel Informationon 07-05 Estimated GFR (MDRD) Amer 102 mL/min >60 [facility] Work Phone: [phone] Comment on above: GFR Calc Estimated GFR (MDRD) Non-Af Amer 84 mL/min >60 [facility] Work Phone: [phone] Comment on above: Non- GFR Calc Thyroid Stimulating Hormone (TSH) 2.79 uIU/mL 0.358-3.74 [facility] Work Phone: Urine Microalbumin/Creat inine Ratio 17.9 mg/g CRE <30 [facility] Work Phone: [phone] Vitamin D 25-Hydroxy 33.0 ng/mL [facility] Work Phone: [phone] Comment on above: Vitamin D 25(OH) Sta tus Range Deficiency <20 ng/mL (50nmol/L) Insufficiency 20 - 30 ng/mL (50 - 75 nmol/L) Sufficiency 30 - 100 ng/mL (75 - 250 nmol/L) Toxicity >100 ng/mL (>250 nmol/L) Platelets bldon 07-05-2021 Platelets (Bld) [#/Vol] 251 10*3/uL 150-450 [facility] Work Phone: [phone] Serum or plasma albumin tricia urement (mass/volume)on 07-05-2021 Albumin [Mass/Vol] 3.7 g/dL 3.2-5.0 [facility] Work Phone: [phone] Serum or plasma albumin/glob ulin mass ratioon 07-05-2021 Albumin/Globulin [Mass ratio] 1.2 {ratio} 0.9-2.4 [facility] Work Phone: [phone] Serum or plasma calcium tricia urement (mass/volume)on 07-05-2021 Calcium [Mass/Vol] 9.2 mg/dL 8.5-10.1 [facility] Work Phone: [phone] Serum or plasma cholesterol in HDL measurement (mass/volume)on 07-05-2021 Cholesterol in HDL [Mass/Vol] 61 mg/dL [facility] Work Phone: Comment on above: The drugs N-Acetylcy steine and Metamizole may falsely depress this assay. Reference Range HDL <40 mg/dL Low HDL Cholesterol HDL >or= 60 mg/dL High HDL Cholesterol Serum or plasma cholesterol in VLDL measurement (mass/volume)on 07-05-2021 Cholesterol in VLDL [Mass/Vol] 34 mg/dL 5-40 [facility] Work Phone: Serum or plasma creatinine m easurement (mass/volume)on 07-05-2021 Creatinine [Mass/Vol] 0.71 mg/dL 0.55-1.02 [facility] Work Phone: Comment on above: The validity of the calculated GFR & GFRAA in patients over 70 years has not been determined. Clinical correlation is essential. Serum or plasma low density lipoprotein (LDL) cholesterol measurement (mass/volume)on 07-05-2021 Cholesterol in LDL [Mass/Vol] 42 mg/dL 0-130 [facility] Work Phone: Serum or plasma urea nitroge n measurement (mass/volume)on 07-05-2021 Urea nitrogen [Mass/Vol] 12 mg/dL 7-18 [facility] Work Phone: Thin prep Papanicolaou smear with manual screeningon 07-05-2021 Thin prep Papanicolaou smear with manual screening 21 U/L 15-37 [facility] Work Phone: Thin prep Papanicolaou smear with manual screening 5 5-15 [facility] Work Phone: Thin prep Papanicolaou smear with manual screening 18.8 mg/L NO RANGE EST. [facility] Work Phone: Urine creatinine measurement (mass/volume)on 07-05-2021 Creatinine (U) [Mass/Vol] 105.00 mg/dL NO RANGE EST. [facility] Work Phone: Whole blood hemoglobin A1c/t otal hemoglobin ratio (mass fraction)on 07-05-2021 HbA1c (Bld) [Mass fraction] 6.5 % 3.8-5.6 [facility] Work Phone: Comment on above: Normal < 5.7 % Predi abetic 5.7 - 6.4 % Diabetic >or= 6.5 % Please note range changes. Absolute lymphocyte counton 03-21-2021 Lymphocytes Auto (Unsp spec) [#/Vol] 1.84 10*3/uL 0.83-4.51 [facility] Work Phone: Basophil percentageon 2021 Basophil percentage 0-5 SEEN /hpf [facility] Work Phone: Basophils/100 WBC (Bld) 0.9 % 0-1 [facility] Work Phone: [phone] Bilirubin [Mass/Vol] 0.60 mg/dL 0.20-1.00 [facility] Work Phone: Comment on above: For patients on eltr ombopag therapy, use of Dimension [place] TBIL is not recommended. Chloride [Moles/Vol] 101 mmol/L 98-107 [facility] Work Phone: Cholesterol [Mass/Vol] 126 mg/dL <200 [facility] Work Phone: Comment on above: <200 mg/dL Desirable 200-240 mg/dL Borderline >240 mg/dL High Risk Eosinophils/100 WBC (Bld) 3.0 % 0-5 [facility] Work Phone: Glucose [Mass/Vol] 253 mg/dL 74-106 [facility] Work Phone: Comment on above: Glucose result great er than or equal to 200 mg/dLsuggests DIABETES MELLITUS per A.D.A. criteria. Neutrophils (Bld) [#/Vol] 4.5 10*3/uL 2.0-7.7 [facility] Work Phone: Neutrophils/100 WBC (Bld) 63.1 % 47-70 [facility] Work Phone: Potassium [Moles/Vol] 3.9 mmol/L 3.5-5.1 [facility] Work Phone: Protein [Mass/Vol] 7.1 g/dL 6.4-8.2 [facility] Work Phone: Sodium [Moles/Vol] 136 mmol/L 136-145 [facility] Work Phone: Triglyceride [Mass/Vol] 127 mg/dL [facility] Work Phone: [phone] Comment on above: The drugs N-Acetylcy steine and Metamizole may falsely depress this assay.Serum Triglycerides Reference Interval Normal <150 mg/dL Borderline high 150 - 199 mg/dL High 200 - 499 mg/dL Very High > or = 500 mg/dL WBC (Bld) [#/Vol] 7.1 10*3/uL 4.4-11.0 [facility] Work Phone: Bilirubin Test strip Ql (U)o n 03-21-2021 Bilirubin Ql (U) Negative Negative [facility] Work Phone: [phone] Blood erythrocytes count (nu mber/volume)on 03-21-2021 RBC (Bld) [#/Vol] 4.59 10*6/uL 4.2-5.4 [facility] Work Phone: Blood hemoglobin measurement (mass/volume)on 03-21-2021 Hemoglobin (Bld) [Mass/Vol] 12.9 g/dL 12.0-15.0 [facility] Work Phone: [phone] Blood lymphocytes/100 leukoc yteson 03-21-2021 Lymphocytes/100 WBC (Bld) 26.1 % 19-41 [facility] Work Phone: [phone] Blood monocytes/100 leukocyt eson 03-21-2021 Monocytes/100 WBC (Bld) 6.8 % 0-10 [facility] Work Phone: Blood platelet mean volumeon 03-21-2021 Platelet mean volume (Bld) [Entitic vol] 12.9 fL 6.2-12.0 [facility] Work Phone: [phone] Determination of erythrocyte mean corpuscular volume (MCV)on 03-21-2021 MCV (RBC) [Entitic vol] 87.1 fL 81-99 [facility] Work Phone: [phone] Erythrocyte sedimentation ra derrell 03-21-2021 ESR (Bld) [Velocity] 4 mm/h 0-30 [facility] Work Phone: Hematocrit Auto (Bld) [Volum e fraction]on 03-21-2021 Hematocrit (Bld) [Volume fraction] 40.0 % 37-47 [facility] Work Phone: [phone] Ketones Test strip Ql (U)on 03-21-2021 Ketones Ql (U) Negative Negative [facility] Work Phone: [phone] Laboratory - Chemistry and C hemistry - challengeon 03-21-2021 ALP [Catalytic activity/Vol] 80 U/L 45-117 [facility] Work Phone: [phone] ALT [Catalytic activity/Vol] 31 U/L 13-56 [facility] Work Phone: [phone] CO2 [Moles/Vol] 27.0 mmol/L 21.0-32.0 [facility] Work Phone: [phone] Globulin (S) [Mass/Vol] 3.0 g/dL 2.2-4.2 [facility] Work Phone: [phone] Urea nitrogen/Creatinin e [Mass ratio] 14.3 mg/mg 10-20 [facility] Work Phone: [phone] Laboratory - Hematology and Cell countson 03-21-2021 Erythrocyte distribution width (RBC) [Entitic vol] 43.1 fL 35.1-43.9 [facility] Work Phone: [phone] Erythrocyte distribution width (RBC) [Ratio] 13.6 % 11.6-14.6 [facility] Work Phone: [phone] Immature granulocytes/100 WBC (Bld) 0.100 % 0.0-0.9 [facility] Work Phone: [phone] Comment on above: IG% - Immature Granu locytes (promyelocytes, myelocytes and metamyelocytes) > 1% indicates that a LEFT SHIFT is Present. MCH (RBC) [Entitic mass] 28.1 pg 27.0-32.0 [facility] Work Phone: [phone] Nucleated RBC/100 WBC (Bld) [Ratio] 0 % 0-5 [facility] Work Phone: [phone] MCHC Auto (RBC) [Mass/Vol]on 03-21-2021 MCHC (RBC) [Mass/Vol] 32.3 g/dL 32-36 [facility] Work Phone: Mucus LM Ql (Urine sed)on Mucus Ql (Urine sed) 0 SEEN /hpf [facility] Work Phone: [phone] Nitrite Test strip Ql (U)on 03-21-2021 Nitrite Ql (U) Negative Negative [facility] Work Phone: No Panel Informationon 03-21 Estimated GFR (MDRD) Amer 84 mL/min >60 [facility] Work Phone: Comment on above: GFR Calc Estimated GFR (MDRD) Non-Af Amer 69 mL/min >60 [facility] Work Phone: Comment on above: Non- GFR Calc Thyroid Stimulating Hormone (TSH) 2.99 uIU/mL 0.358-3.74 [facility] Work Phone: [phone] Urine Microalbumin/Creat inine Ratio 19.4 mg/g CRE <30 [facility] Work Phone: [phone] Vitamin D 25-Hydroxy 26.3 ng/mL [facility] Work Phone: Comment on above: Vitamin D 25(OH) Sta tus Range Deficiency <20 ng/mL (50nmol/L) Insufficiency 20 - 30 ng/mL (50 - 75 nmol/L) Sufficiency 30 - 100 ng/mL (75 - 250 nmol/L) Toxicity >100 ng/mL (>250 nmol/L) Platelets bldon 03-21-2021 Platelets (Bld) [#/Vol] 221 10*3/uL 150-450 [facility] Work Phone: Protein Test strip Ql (U)on 03-21-2021 Protein Ql (U) Negative Negative [facility] Work Phone: [phone] Serum or plasma albumin tricia urement (mass/volume)on 03-21-2021 Albumin [Mass/Vol] 4.1 g/dL 3.2-5.0 [facility] Work Phone: [phone] Serum or plasma albumin/glob ulin mass ratioon 03-21-2021 Albumin/Globulin [Mass ratio] 1.4 {ratio} 0.9-2.4 [facility] Work Phone: Serum or plasma calcium tricia urement (mass/volume)on 03-21-2021 Calcium [Mass/Vol] 9.2 mg/dL 8.5-10.1 [facility] Work Phone: Serum or plasma cholesterol in HDL measurement (mass/volume)on 03-21-2021 Cholesterol in HDL [Mass/Vol] 60 mg/dL [facility] Work Phone: Comment on above: The drugs N-Acetylcy steine and Metamizole may falsely depress this assay. Reference Range HDL <40 mg/dL Low HDL Cholesterol HDL >or= 60 mg/dL High HDL Cholesterol Serum or plasma cholesterol in VLDL measurement (mass/volume)on 03-21-2021 Cholesterol in VLDL [Mass/Vol] 25 mg/dL 5-40 [facility] Work Phone: Serum or plasma creatinine m easurement (mass/volume)on 03-21-2021 Creatinine [Mass/Vol] 0.84 mg/dL 0.55-1.02 [facility] Work Phone: Comment on above: The validity of the calculated GFR & GFRAA in patients over 70 years has not been determined. Clinical correlation is essential. Serum or plasma low density lipoprotein (LDL) cholesterol measurement (mass/volume)on 03-21-2021 Cholesterol in LDL [Mass/Vol] 41 mg/dL 0-130 [facility] Work Phone: Serum or plasma urea nitroge n measurement (mass/volume)on 03-21-2021 Urea nitrogen [Mass/Vol] 12 mg/dL 7-18 [facility] Work Phone: [phone] Squamous epithelial cells de tection in urine sediment by light microscopyon 03-21-2021 Epithelial cells.squamous LM Ql (Urine sed) 0 SEEN /hpf [facility] Work Phone: Thin prep Papanicolaou smear with manual screeningon 03-21-2021 Thin prep Papanicolaou smear with manual screening 17 U/L 15-37 [facility] Work Phone: Thin prep Papanicolaou smear with manual screening 8 5-15 [facility] Work Phone: Thin prep Papanicolaou smear with manual screening 12.2 mg/L NO RANGE EST. [facility] Work Phone: Urine blood detectionon 03-10 RBC Ql (U) Negative Negative [facility] Work Phone: RBC Ql (U) 0 SEEN /hpf [facility] Work Phone: Urine clarityon 03-21-2021 Clarity (U) Clear Clear [facility] Work Phone: Urine color determinationon 03-21-2021 Color (U) Yellow Yellow [facility] Work Phone: Urine creatinine measurement (mass/volume)on 03-21-2021 Creatinine (U) [Mass/Vol] 62.80 mg/dL NO RANGE EST. [facility] Work Phone: Urine glucose detectionon Glucose Ql (U) 1000 mg/dl Normal [facility] Work Phone: Urine leukocyte esterase det ection by dipstickon 03-21-2021 Leukocyte esterase Test strip Ql (U) 100 /ul Negative [facility] Work Phone: Urine pHon 03-21-2021 pH (U) 6.0 [pH] [facility] Work Phone: Urine sediment bacteria coun t by microscopy (number/high power field)on 03-21-2021 Bacteria LM.HPF (Urine sed) [#/Area] 0 /[HPF] None Seen [facility] Work Phone: Urine specific gravity measu rementon 03-21-2021 Specific gravity (U) [Rel density] 1.015 [facility] Work Phone: Urobilinogen Auto test strip Ql (U)on 03-21-2021 Urobilinogen Ql (U) Normal mg/dl Normal [facility] Work Phone: Whole blood hemoglobin A1c/t otal hemoglobin ratio (mass fraction)on 03-21-2021 HbA1c (Bld) [Mass fraction] 6.4 % 3.8-5.6 [facility] Work Phone: Comment on above: Normal < 5.7 % Predi abetic 5.7 - 6.4 % Diabetic >or= 6.5 % Please note range changes. .Auto Diffon 10-28-2018 Ammonia (P) [Mass/Vol] 0.90 10 3/mcL Normal 0.15-1.00 [facility] Comment on above: Performed By: #### C THEO DAVIS, ANEU #### [place] [id number] #### BMP, GFR #### [address] [address] Basophils (Bld) [#/Vol] 0.00 10 3/mcL Normal 0.00-0.19 [facility] ([place]) Comment on above: Performed By: #### C THEO DAVIS ANEU #### [place] [address] #### BMP, GFR #### [address] [address] Basophils/100 WBC (Bld) 0.4 % Normal 0.0-2.5 [facility] ([place]) Comment on above: Performed By: #### C THEO DAVIS, ANEU #### [place] [address] #### BMP, GFR #### [address] [address] Eosinophils (Bld) [#/Vol] 0.20 10 3/mcL Normal 0.00-0.40 [facility] ([place] Comment on above: Performed By: #### C THEO DAVIS, ANEU #### [place] [address] #### BMP, GFR #### [address] [address] Eosinophils/100 WBC (Bld) 2.0 % Normal 0.0-7.0 [facility] ([place] Comment on above: Performed By: #### C BC, ADIFF, ANEU #### [address] [address] #### BMP, GFR #### [address] [address] Lymphocytes (Bld) [#/Vol] 1.50 10 3/mcL Normal 0.77-3.85 [facility] ([place]) Comment on above: Performed By: #### C BC, ADIFF, ANEU #### [address] [address] #### BMP, GFR #### [address] [address] Lymphocytes/100 WBC (Bld) 14.7 % Normal 10.0-50.0 [facility] ([place] Comment on above: Performed By: #### C BC, ADIFF, ANEU #### [address] [address] #### BMP, GFR #### [address] [address] Monocytes/100 WBC (Bld) 8.8 % Normal 1.7-13.0 [facility] ([place] Comment on above: Performed By: #### C BC, ADIFF, ANEU #### [address] [address] #### BMP, GFR #### [address] [address] Neutrophils/100 WBC (Bld) 74.1 % Normal 37.0-80.0 [facility] ([place] Comment on above: Performed By: #### C BC, ADIFF, ANEU #### [address] [address] #### BMP, GFR #### [address] [address] .GFRon 10-28-2018 GFR Non- 66 ml/min/1.73sqm Normal [facility] ([place] Comment on above: Result Comment: [...] square meters Performed By: #### C BC, ADIFF, ANEU ####[address] [place] [address]#### BMP, GFR ####[address] [address] GFR 80 ml/min/1.73sqm Normal [facility] ([place]) Comment on above: Result Comment: GFR Population [...] square meters Performed By: #### C BC, ADIFF, ANEU ####[place] [id number]#### BMP, GFR ####[place] [address] [place] [address] .NEUABSon 10-28-2018 Neutrophils (Bld) [#/Vol] 7.40 10 3/mcL High 2.85-6.16 [facility] ([place] Comment on above: Performed By: #### C BC, ADIFF, ANEU #### Milo [address] [address] #### BMP, GFR #### [address] [address] BMPon 10-28-2018 Calcium [Mass/Vol] 7.9 mg/dL Low 8.4-10.2 [facility] ([place] Comment on above: Performed By: #### C BC, ADIFF, ANEU ####Mil[address] [place], [place] [address]#### BMP, GFR ####[address] [address] Chloride [Moles/Vol] 105 mmol/L Normal 98-107 [facility] ([place] Comment on above: Performed By: #### C BC, ADIFF, ANEU ####[place] [address]#### BMP, GFR ####[address] [address] CO2 [Moles/Vol] 26 mmol/L Normal 23-31 [facility] ([place] Comment on above: Performed By: #### C BC, ADIFF, ANEU ####[place] [address]#### BMP, GFR ####[address] [address] Creatinine [Mass/Vol] 0.83 mg/dL Normal 0.55-1.02 [facility] ([place] Comment on above: Performed By: #### C BC ADIFF, ANEU ####[place] [address]#### BMP, GFR ####[address] [address] Electrolyte Balance 9.0 mEq/L Normal [facility] ([place] Comment on above: Performed By: #### C BC, ADIFF, ANEU ####[address] [place] [address]#### BMP, GFR ####[address] [address] Glucose [Mass/Vol] 223 mg/dL High 83-110 [facility] ([place] Comment on above: Performed By: #### C BC, ADIFF, ANEU ####[facility] [place] [address]#### BMP, GFR ####[address] [address] Potassium [Moles/Vol] 4.0 mmol/L Normal 3.5-5.1 [facility] ([place] Comment on above: Performed By: #### C BC, ADIFF, ANEU ####Milo [address] [address]#### BMP, GFR ####[address] [address] Sodium [Moles/Vol] 140 mmol/L Normal 136-145 [facility] ([place] Comment on above: Performed By: #### C BC, ADIFF, ANEU ####[address] [address]#### BMP, GFR ####[address] [address] Urea nitrogen [Mass/Vol] 11 mg/dL Normal 7-18 [facility] ([place] Comment on above: Performed By: #### C BC, ADIFF, ANEU ####[address] [address]#### BMP, GFR ####[address] [address] Urea nitrogen/Creatinin e [Mass ratio] 13 ratio Normal 7-27 [facility] ([place] Comment on above: Performed By: #### C BC, ADIFF, ANEU ####Mil[address] [address]#### BMP, GFR ####[address] [address] CBCon 10-28-2018 Erythrocyte distribution width (RBC) [Ratio] 13.3 % Normal 11.5-14.5 [facility] ([place] Comment on above: Performed By: #### C BC, ADIFF, ANEU #### [place] [place] [address] #### BMP, GFR #### [address] [address] Hematocrit (Bld) [Volume fraction] 33.1 % Low 37.0-47.0 [facility] ([place] Comment on above: Performed By: #### C BC, ADIFF, ANEU #### [address] [address] #### BMP, GFR #### [place] [address] Hemoglobin (Bld) [Mass/Vol] 11.2 G/dL Low 12.0-16.0 [facility] ([place] Comment on above: Performed By: #### C BC, ADCRISTA, ANEU #### [place] [address] #### BMP, GFR #### [place] [address] MCH (RBC) [Entitic mass] 30.9 pg Normal 27.0-31.2 [facility] ([place] Comment on above: Performed By: #### C BC, ADIFF, ANEU #### [address] [address] #### BMP, GFR #### [place] [address] MCHC (RBC) [Mass/Vol] 33.9 G/dL Normal 33.0-37.0 [facility] ([place] Comment on above: Performed By: #### C SUSAN, ADIFF, ANEU #### [place] [address] #### BMP, GFR #### [place] [address] MCV (RBC) [Entitic vol] 91.0 fL Normal 80.0-94.0 [facility] ([place] Comment on above: Performed By: #### C BC, ADIFF, ANEU #### [address] [address] #### BMP, GFR #### [facility] [address] [place], [place] [address] Platelet mean volume (Bld) [Entitic vol] 10.5 fL High 7.4-10.4 [facility] ([place] Comment on above: Performed By: #### C BC, ADIFF, ANEU #### [address] [address] #### BMP, GFR #### [address] [address] Platelets (Bld) [#/Vol] 141 10 3/mcL Normal 130-400 [facility] ([place] Comment on above: Performed By: #### C BC, ADIFF, ANEU #### [address] [address] #### BMP, GFR #### [place] [address] RBC (Bld) [#/Vol] 3.64 10 6/mcL Low 4.20-5.40 [facility] ([place]) Comment on above: Performed By: #### C BC, ADIFF, ANEU #### [place] [address] #### BMP, GFR #### [place] [id number] WBC (Bld) [#/Vol] 10.00 10 3/mcL Normal 4.60-10.80 [facility] ([place]) Comment on above: Performed By: #### C BC, ADIFF, ANEU #### [place] [address] #### BMP, GFR #### [place] [address] XR KNEE 1 OR 2 VIEWS RIGHTon [...] AM Sign Date: 10/28/2018 10:21:40 AM Normal [facility] ([place]) .Auto Diffon 10-16-2018 Ammonia (P) [Mass/Vol] 0.50 10 3/mcL Normal 0.15-1.00 [facility] ([place]) Comment on above: Performed By: #### C BCTHEO, ANEU #### [place] [address] #### BMP, GFR #### [address] [address] Basophils (Bld) [#/Vol] 0.10 10 3/mcL Normal 0.00-0.19 [facility] ([place]) Comment on above: Performed By: #### THEO CARTY, ANEU #### [place] [address] #### BMP, GFR #### [address] [address] Basophils/100 WBC (Bld) 1.0 % Normal 0.0-2.5 [facility] ([place]) Comment on above: Performed By: #### THEO CARTY, ANEU #### [place] [address] #### BMP, GFR #### [address] [address] Eosinophils (Bld) [#/Vol] 0.30 10 3/mcL Normal 0.00-0.40 [facility] ([place] Comment on above: Performed By: #### C BCSONIAIFF, ANEU #### [place] [address] #### BMP, GFR #### [address] [address] Eosinophils/100 WBC (Bld) 4.3 % Normal 0.0-7.0 [facility] ([place]) Comment on above: Performed By: #### C BCSONIAIFF, ANEU #### [address] [address] #### BMP, GFR #### [address] [address] Lymphocytes (Bld) [#/Vol] 2.20 10 3/mcL Normal 0.77-3.85 [facility] ([place]) Comment on above: Performed By: #### C BC, ADIFF, ANEU #### [address] [address] #### BMP, GFR #### [address] [address] Lymphocytes/100 WBC (Bld) 29.8 % Normal 10.0-50.0 [facility] ([place] Comment on above: Performed By: #### C BC, ADIFF, ANEU #### [address] [address] #### BMP, GFR #### [address] [address] Monocytes/100 WBC (Bld) 6.6 % Normal 1.7-13.0 [facility] ([place] Comment on above: Performed By: #### C BC, ADIFF, ANEU #### [address] [address] #### BMP, GFR #### [address] [address] Neutrophils/100 WBC (Bld) 58.3 % Normal 37.0-80.0 [facility] ([place] Comment on above: Performed By: #### C BC, ADIFF, ANEU #### [address] [address] #### BMP, GFR #### [address] [address] .GFRon 10-16-2018 GFR 92 ml/min/1.73sqm Normal [facility] ([place]) Comment on above: Result Comment: [...] mL/min/1.73 square meters Performed By: #### C BCTHEO, ANEU #### [place] [address] #### BMP, GFR #### [address] [address] GFR Non- 76 ml/min/1.73sqm Normal [facility] ([place]) Comment on above: Result Comment: GFR Population [...] By: #### C THEO DAVIS, ANEU #### [place] [address] #### BMP, GFR #### [address] [address] .NEUABSon 10-16-2018 Neutrophils (Bld) [#/Vol] 4.30 10 3/mcL Normal 2.85-6.16 [facility] ([place]) Comment on above: Performed By: #### C THEO DAVIS, ANEU #### [address] [address] #### BMP, GFR #### [place] [id number] BMPon 10-16-2018 Calcium [Mass/Vol] 8.8 mg/dL Normal 8.4-10.2 [facility] ([place] Comment on above: Performed By: #### C BC, ADIFF, ANEU #### [address] [address] #### BMP, GFR #### [address] [address] Chloride [Moles/Vol] 102 mmol/L Normal 98-107 [facility] ([place]) Comment on above: Performed By: #### C BC, ADIFF, ANEU #### [address] [address] #### BMP, GFR #### [place] [address] CO2 [Moles/Vol] 27 mmol/L Normal 23-31 [facility] ([place] Comment on above: Performed By: #### C BC, ADIFF, ANEU #### [address] [address] #### BMP, GFR #### [address] [address] Creatinine [Mass/Vol] 0.74 mg/dL Normal 0.55-1.02 [facility] ([place] Comment on above: Performed By: #### C BC, ADIFF, ANEU #### [address] [address] #### BMP, GFR #### [place] [address] Electrolyte Balance 11.0 mEq/L Normal [facility] ([place] Comment on above: Performed By: #### C BC, ADIFF, ANEU #### [address] [address] #### BMP, GFR #### [place] [address] Glucose [Mass/Vol] 227 mg/dL High 83-110 [facility] ([place] Comment on above: Performed By: #### C BC, ADIFF, ANEU #### [address] [address] #### BMP, GFR #### [address] [address] Potassium [Moles/Vol] 4.2 mmol/L Normal 3.5-5.1 [facility] ([place]) Comment on above: Performed By: #### C BC, ADIFF, ANEU #### [address] [address] #### BMP, GFR #### [address] [address] Sodium [Moles/Vol] 140 mmol/L Normal 136-145 [facility] ([place] Comment on above: Performed By: #### C BC, ADIFF, ANEU #### [address] [address] #### BMP, GFR #### [address] [address] Urea nitrogen [Mass/Vol] 12 mg/dL Normal 7-18 [facility] ([place]) Comment on above: Performed By: #### C BC, ADIFF, ANEU #### [address] [address] #### BMP, GFR #### [address] [address] Urea nitrogen/Creatinin e [Mass ratio] 16 ratio Normal 7-27 [facility] ([place]) Comment on above: Performed By: #### C BC, ADIFF, ANEU #### [place] [address] #### BMP, GFR #### [address] [address] CBCon 10-16-2018 Erythrocyte distribution width (RBC) [Ratio] 13.7 % Normal 11.5-14.5 [facility] ([place]) Comment on above: Performed By: #### C BC, ADIFF, ANEU #### [address] [address] #### BMP, GFR #### [address] [address] Hematocrit (Bld) [Volume fraction] 40.0 % Normal 37.0-47.0 [facility] ([place]) Comment on above: Performed By: #### THEO CARTY, ANEU #### [address] [address] #### BMP, GFR #### [place] [address] Hemoglobin (Bld) [Mass/Vol] 13.6 G/dL Normal 12.0-16.0 [facility] ([place] Comment on above: Performed By: #### C THEO DAVIS, ANEU #### [place] [address] #### BMP, GFR #### [place] [address] MCH (RBC) [Entitic mass] 30.2 pg Normal 27.0-31.2 [facility] ([place]) Comment on above: Performed By: #### C THEO DAVIS, ANEU #### [place] [address] #### BMP, GFR #### [place] [address] MCHC (RBC) [Mass/Vol] 34.0 G/dL Normal 33.0-37.0 [facility] ([place] Comment on above: Performed By: #### C THEO DAVIS, ANEU #### [place] [address] #### BMP, GFR #### [place] [address] MCV (RBC) [Entitic vol] 88.7 fL Normal 80.0-94.0 [facility] ([place]) Comment on above: Performed By: #### THEO CARTY, ANEU #### [place] [address] #### BMP, GFR #### [place] [address] Platelet mean volume (Bld) [Entitic vol] 11.0 fL High 7.4-10.4 [facility] ([place]) Comment on above: Performed By: #### C BC, ADIFF, ANEU #### [address] [address] #### BMP, GFR #### [address] [address] Platelets (Bld) [#/Vol] 186 10 3/mcL Normal 130-400 [facility] ([place] Comment on above: Performed By: #### C BC, ADIFF, ANEU #### [address] [address] #### BMP, GFR #### [address] [address] RBC (Bld) [#/Vol] 4.51 10 6/mcL Normal 4.20-5.40 [facility] ([place] Comment on above: Performed By: #### C BC ADIFF, ANEU #### [address] [address] #### BMP, GFR #### [address] [address] WBC (Bld) [#/Vol] 7.40 10 3/mcL Normal 4.60-10.80 [facility] ([place] Comment on above: Performed By: #### C BC, ADIFF, ANEU #### [place] [id number] #### BMP, GFR #### [address] [address] [address] KNEE W/O CONTRAST RIGHTon 10-12-2018 CT [...] PM Sign Date: 10/12/2018 12:59:52 PM Normal [facility] ([place]) CT KNEE W/O CONTRAST RIGHTon 05-22-2018 CT [...] PM Sign Date: 05/22/2018 2:44:37 PM Normal [facility] ([place]) Encounters Encounter Date Encounter Type Care Provider Facility Start: 10-06-2024 ambulatory Ronak Escalante Facilit y:[facility] Start: 09-30-2024 ambulatory Ronak Escalante Facilit y:[facility] Start: 09-03-2024 End: 09-03-2024 ambulatory Ronak Escalante Facility:[facility] Start: 08-18-2024 ambulatory Self Referred Facility: [facility] Start: 08-16-2024 End: 08-16-2024 ambulatory Ronak Escalante Facility:[facility] Start: 08-11-2024 End: 08-11-2024 ambulatory Ronak Escalante Facility:[facility] Start: 08-03-2024 Encounter for other preprocedural examination Sheridan Nowak [facility] Start: 07-15-2024 End: 08-07-2024 ambulatory Self Referred Facility:[facility] Start: 07-01-2024 End: 07-01-2024 ambulatory Charly GARAY Facility:[facility] Start: 06-23-2024 Encounter for other preprocedural examination Sylvain Rhiannon ryann [facility] Start: 06-21-2024 End: 06-23-2024 ambulatory Sylvain Rhiannon Salamanca Facility:[facility] Start: 06-14-2024 End: 06-14-2024 ambulatory Sheridan Woods Facility:[facility] Start: 05-31-2024 End: 05-31-2024 ambulatory Ronak Escalante Facility:[facility] Start: 05-20-2024 End: 05-20-2024 ambulatory Ronak Escalante Facility:[facility] Start: 04-06-2024 ambulatory Ronak Escalante Facilit y:[facility] Start: 04-02-2024 End: 04-02-2024 ambulatory Ronak Escalante Facility:[facility] Start: 03-18-2024 End: 03-18-2024 ambulatory Ronak Escalante Facility:[facility] Start: 01-22-2024 End: 01-22-2024 ambulatory Ronak Escalante Facility:[facility] Start: 12-16-2023 End: 12-16-2023 ambulatory [facility] Facility:[facility] Start: 12-12-2023 End: 12-12-2023 ambulatory [facility] Facility:[facility] Start: 12-08-2023 End: 12-08-2023 ambulatory [facility] Facility:[facility] Start: 10-16-2023 End: 10-16-2023 ambulatory [facility] Facility:[facility] Start: 02-18-2023 End: 02-26-2023 Evaluation and management of inpatient [facility] Start: 11-06-2021 End: 11-06-2021 ambulatory [facility] Work Phone: Start: 11-06-2021 End: 11-06-2021 Patient encounter procedure [facility] Start: 07-05-2021 End: 07-05-2021 Patient encounter procedure [facility] Start: 03-21-2021 End: 03-21-2021 Patient encounter procedure [facility] Start: 05-18-2018 Patient encounter procedure SHERIDAN NOWAK Facility:B Payers Date Payer Category Payer Self-pay [id number] 2023 Private Health Insurance 2023 Self-pay [id number] 2015 Private Health Insurance [id number] 2004 Medicare [id number] Unknown [id number] 2.16.8 [id number] Unknown [id number] 2.16.8 40.1.440196.3.579.2.462 Unknown [id number] 2.16.8 40.1.739167.3.579.2.462 Unknown [id number] 2.16.8 40.1.407372.3.579.2.462 Unknown [id number] 2.16.8 40.1.503515.3.579.2.462 Unknown [id number] 2.16.8 40.1.110045.3.579.2.462 Unknown [id number] 2.16.8 40.1.210319.3.579.2.462 Unknown [id number] 2.16.8 40.1.519843.3.579.2.462 Unknown [id number] 2.16.8 40.1.141840.3.579.2.462 Unknown [id number] 2.16.8 40.1.913859.3.579.2.462 Unknown [id number] 2.16.8 40.1.723983.3.579.2.462 Unknown [id number] 2.16.8 40.1.390162.3.579.2.462 Unknown [id number] 2.16.8 40.1.090422.3.579.2.462 Unknown [id number] 2.16.8 40.1.578667.3.579.2.462 Unknown [id number] 2.16.8 40.1.390064.3.579.2.462 Unknown [id number] 2.16.8 40.1.524633.3.579.2.462 Unknown [id number] 2.16.8 40.1.828749.3.579.2.462 Unknown [id number] 2.16.8 40.1.986618.3.579.2.462 Unknown [id number] 2.16.8 40.1.192012.3.579.2.462 Unknown [id number] 2.16.8 40.1.074367.3.579.2.462 Unknown [id number] 2.16.8 40.1.831881.3.579.2.462 Unknown [id number] 2.16.8 40.1.595415.3.579.2.462 Social History Date Type Detail Facility [facility] Work Phone: Start: 1940 Sex Assigned At Female [facility] Work Phone: Clinical Notes 02-19-2023 to 06-23-2024 Note Date & Type Note Facility 06-23-2024 Note [facility] Medical Records Department [address] [place] [address] Discharge Summary 06/23/24 1025 MR#: [id number] Acct: [id number] Name: Jose PIEDRA Rep #: [id number] : 1940 84 From: Charly GARAY PA-C PCP: Dr. Ronak Escalante MD Status:ADM ALBERTA Location: [place] [address] Providers Date of Admission: 06/21/24 Date of [...] begin 2 weeks postoperatively after follow-up with [place] [facility] with x-rays and [...] would like her prescriptions E scribed to [facility] outpatient pharmacy. Patient has follow-up with her [...] care management team. I have reviewed the [place] Automated Rx Reporting System (OARRS) report for [...] PO DAILY 12/08/23 (more content not included)... [facility] 06-14-2024 Note [facility] Medical Records Department [address] [place] [address] History Physical Exam 06/14/24 1306 MR#: [id number] Acct: [id number] Name: Jose PIEDRA Rep #: [id number] : 1940 84 From: Charly GARAY PA-C PCP: Dr. Ronak Escalante MD Status:[facility] Location: [place] [address] History and Physical History and Physical Patient [...] Tunnel - Right - 2004 AND 2005??? [facility] Rotator Cuff - LEFT? 2004??? [facility] Knee Replacement RT - (10/27/2018) DR ELIU goldstein surgery - (2006) right eye partial thyroidectomy [...] 1po bid, Hydrochlor (more content not included)... [facility] 02-26-2023 Note Discharge Summary Karri Piedra : [...] 15 MG ta (more content not included)... [facility] 02-26-2023 Note [facility] - Infectious Diseases Advanced Practice Provider Progress Note Subjective: Following for acute uncomplicated sigmoid diverticulitis. Notes reviewed. Pt states N/V/abd pain improved since starting Augmentin. Denies fever or chills overnight. Planning to go to facility in [place]. Vitals: Patient Vitals for the past 24 [...] recommended with established provider Dr Lozano in [place]. ID to follow sign off. Based on diagnoses and management, combination of acute and chronic problems, exacerbations and/or acuity, this visit should be considered to be of low complexity. [place], CRISTAL, PABrittanyC [facility] 02-26-2023 Note Hospitalist Progress Note 02/26/2023 [phone]: [employer] me for patient care issues. [phone]: Please [employer] [facility] Consulting Hospitalist for any issues. Subjective: Admit [...] She states she will be going to [facility]. She denies any sob, cp, palpitations, urinary [...] this unenhanced examination. (more content not included)... [facility] 02-25-2023 Note Have spoken to sara conrad's spouse throughout today. Referrals have been made including to [facility] per his request. This worker spoke to admissions will have an answer by a.m. [facility] 02-25-2023 Note Spoke to patient's s jaclyn Gallardo he is now interested in a referral to [facility] this worker followed up with a phone call to admissions will have answer if patient can be excepted by later this afternoon or tomorrow morning. [facility] 02-25-2023 Note PSYCHIATRIC EVALUATI ON/PROGRESS NOTE CC:depression, [...] patient stated, I wont be here for [place]. Patient denying SI/HI to me at this [...] states she was investigated for UTI at [facility] recently for these symptoms and it [...] better overall. Referred to several facilities in [place], family declines one that accepted pt, will need to d/w fam to either expand search or pt will return home. I left message for both son and today , also yesterday PTOT rec SNF No side effects reported. Short term goal-reduction in symptoms; intermediate goal -improved functioning, reduction in polypharmacy. 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 Patient [...] of health []t (more content not included)... [facility] 02-25-2023 Note Hospitalist Progress Note 02/25/2023 [phone]: [employer] [place] for patient care issues. [phone]: Please [employer] Chat [facility] Consulting Hospitalist for any issues. Subjective: Admit [...] unenhanced examination. Gallb (more content not included)... [facility] 2023 Note PSYCHIATRIC EVALUATI ON/PROGRESS NOTE CC:depression, [...] patient stated, I wont be here for [place]. Patient denying SI/HI to me at this [...] states she was investigated for UTI at [facility] recently for these symptoms and it [...] believes she is much improved . PTOT rec SNF No side effects reported. Short term goal-reduction in symptoms; intermediate goal -improved functioning, reduction in polypharmacy. 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 Patient [...] a provider outside (more content not included)... [facility] 2023 Note Hospitalist Progress Note 2023 [phone]: [employer] [place] for patient care issues. [phone]: Please [employer] [facility] [place] Consulting Hospitalist for any issues. Subjective: Admit Date: 02/18/2023 PCP: No primary care provider on file. Room#: S4-113/S4113 A Brief Hospital course: Karri is a [...] management Interval History: No acute changes overnight. Nevaeint was seen and evaluated at bedside this [...] output data in the 24 hours ending 02/24/23 0819 Past Medical History: Past Medical History: Diagnosis [...] 1000 mg bi (more content not included)... [facility] 02-23-2023 Note Department of Psychi atry Attending [...] Nightly, Arjun Cornell MD, 18 Units at 02/22/23 210 [Held by provider] Insulin Lispro (Humalog) injection 0-6 Units, 0-6 Units, SubCUTAneous, TID WC, 1 Units at 02/20/23 0835 AND [Held by provider] Insulin Lispro (Humalog) injection 0-6 Units, 0-6 Units, SubCUTAneous, Nightly, BREANNE Gonzalez CNP lisinopril tablet 20 mg, 20 mg, Oral, Daily, Arjun Cornell MD, 20 mg at 02/23/23 0839 metFORMIN (Glucophage) tablet 1,000 mg, 1,000 mg, Oral, BID WC, BREANNE Gonzalez CNP, 1,000 mg at 02/23/23 1725 mirtazapine (Remeron) [...] PRN, Yumiko Gasca MD, 50 mg at 02/22/232100 ASSESSMENT: Major Depressive Disorder, recurrent, severe, with [...] Will continue to follow recommendations per medical administrator. Will discharge the patient to the appropriate level of care when medically (more content not included)... [facility] 02-23-2023 Note Hospitalist Progress Note 02/23/[id number]: [employer] [facility] [place] for patient care issues. [phone]: Please [employer] [facility] Consulting Hospitalist for any issues. Subjective: Admit [...] output data in the 24 hours ending 02/23/23825 Past Medical History: Past Medical History: Diagnosis [...] and continue b (more content not included)... [facility] 02-22-2023 Note Denies si/hi. Admits to sad and lack of purpose. 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 Up with one assist, very. cautious with transfer from chair to bed and cautious. Sleeping at this time. [facility] 02-22-2023 Note Department of Psychi atry Attending [...] mg, Oral, q6h PRN, 650 mg at 02/22/23 2101 OR acetaminophen (Tylenol) suppository 650 mg, 650 [...] Daily, Arjun Cornell MD, 12.5 mg at 02/22/23840 Influenza Vac A&B SA Adj quadrivalent (Fluad) vaccine 0.5 mL, 0.5 mL, IntraMUSCular, Once, Yumiko Gasca MD insulin glargine (Lantus) injection 18 Units, 18 Units, SubCUTAneous, Nightly, Arjun Cornell MD, 18 Units at 02/22/232100 [Held by provider] Insulin Lispro (Humalog) injection 0-6 Units, 0-6 Units, SubCUTAneous, TID WC, 1 Units at 02/20/23 08 AND [Held by provider] Insulin Lispro (Humalog) injection 0-6 Units, 0-6 Units, SubCUTAneous, Nightly, BREANNE Gonzalez CNP lisinopril tablet 20 mg, 20 mg, Oral, Daily, Arjun Cornell MD, 20 mg at 02/22/23840 metFORMIN (Glucophage) tablet 1,000 mg, 1,000 mg, Oral, BID WC, BREANNE Gonzalez CNP, 1,000 mg at 02/22/23 171 mirtazapine (Remeron) tablet 15 mg, 15 mg, [...] mg, 50 mg, Oral, Nightly PRN, Yumiko Gsaca MD, 50 mg at 02/22/232100 ASSESSMENT: Major Depressive Disorder, recurrent, severe, with [...] medication regimen. Will follow recommendations per medical administrator. Will discharge the patient to the appropriate level of care when medically and (more content not included)... [facility] 02-22-2023 Note Hospitalist Progress Note 02/22/2023 [phone]: [employer] [facility] [place] for patient care issues. [phone]: Please [employer] [facility] Consulting Hospitalist for any issues. Subjective: Admit [...] Total time spent (more content not included)... [facility] 02-21-2023 Note PSYCHIATRIC EVALUATI ON/PROGRESS NOTE CC:depression, [...] states she was investigated for UTI at [facility] recently for these symptoms and it [...] effects reported. Short term goal-reduction in symptoms; intermediate goal -improved functioning, reduction in polypharmacy. TCT [...] effects none Short term goal-reduction in symptoms; intermediate goal -improved functioning, reduction in polypharmacy. Patient [...] discussion of manage (more content not included)... [facility] 02-21-2023 Note Hospitalist Progress Note 02/21/2023 [phone]: [employer] me for patient care issues. [phone]: Please [employer] [facility] Consulting Hospitalist for any issues. Subjective: Admit [...] of monitoring : (more content not included)... [facility] 02-20-2023 Note PHYSICAL THERAPY [facility] Initial Evaluation Name/MRN: Karri Piedra ([id number]) Evaluation Date: 02/20/2023 Date of : 1940 Admission Date: 02/18/2023 6:15 PM Age: 82 y.o. Room/Bed: S4-113/S4-113 A Discharge Recommendation: Longterm Facility Other: tbd Assessment IMPRESSION: Pt present [...] climbing assessed?: No (more content not included)... [facility] 02-20-2023 Note PSYCHIATRIC EVALUATI ON/PROGRESS NOTE CC:depression, [...] patient stated, I wont be here for [place]. Patient denying SI/HI to me at this [...] states she was investigated for UTI at [facility] recently for these symptoms and it [...] regimen. 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 PT [...] effects reported. Short term goal-reduction in symptoms; intermediate goal -improved functioning, reduction in polypharmacy. TCT her psychiatrist rafael Barrett/chinyere. Per son pt did not have ECT [...] effects none Short term goal-reduction in symptoms; terminal operations supervisor goal -improved functioning, reduction in polypharmacy. Patient [...] an independent int (more content not included)... [facility] 02-20-2023 Note OCCUPATIONAL THERAPY [facility] Initial Evaluation Name/MRN: Karri Piedra ([id number]) Evaluation Date: 02/20/2023 Date of : 1940 Admission Date: 02/18/2023 6:15 PM Age: 82 y.o. Room/Bed: S4-113/S4-113 A Discharge Recommendation: Longterm Facility Equipment Needed: (TBD) Assessment IMPRESSION: Pt [...] Daily Activity Raw Score: 15 ADL Inpatient CMS G-Code Modifier: CK Plan Pt would benefit [...] and Continued Edu (more content not included)... [facility] 02-19-2023 Note PSYCHIATRIC EVALUATI ON/PROGRESS NOTE CC:depression, [...] patient stated, I wont be here for [place]. Patient denying SI/HI to me at this [...] states she was investigated for UTI at [facility] recently for these symptoms and it [...] effects reported. Short term goal-reduction in symptoms; intermediate goal -improved functioning, reduction in polypharmacy. Due [...] effects none Short term goal-reduction in symptoms; intermediate goal -improved functioning, reduction in polypharmacy. Patient [...] of morbidity wit (more content not included)... [facility] Evaluation note No assessment information [facility] Work Phone: Summary Purpose Family History No [...] content) DATE CREATED AUTHOR 05/19/2018 [facility] ([place]) DATE CREATED AUTHOR AUTHOR'S ORGANIZ ATION 10/30/2018 [facility] ([place]) DATE CREATED AUTHOR AUTHOR'S ORGANIZ ATION 03/23/2023 [facility] DATE CREATED AUTHOR AUTHOR'S ORGANIZ ATION 10/05/2024 [facility] Goals (unrecognized section and content) Goals [...] BE BASED ON THE PRIMARY CLINICAL RECORDS. [employer] provides no warranty or guarantee of the accuracy or completeness of information in this document.
== END | disposition home or self-care (01) ==
LOC: US 10:05
PROVIDERS: PCP Family Medicine; Referring Provider Family Medicine; Visit Provider Family Medicine
DX: R11.0 Nausea (principal)
CPT/HCPCS: 76705

== ENCOUNTER 2024-11-12 12:13 | Observation (INO) | payer MEDICARE, OTHER, SELFPAY ==
[2024-11-12] VITALS (19 sets, daily range): BP systolic 146–206; BP diastolic 54–126; PULSE 67–108; RESP 9–27; TEMP 36.6–36.8; O2SAT 84–100; BMI 27.8; BMI 25.2
--- NOTE | 2024-11-12 12:34 | EDS_ITS ---
HPI History of Present Illness Chief Complaint: Neuro S/Sx Informant: patient Onset/Context/Timing Onset: Days (4) Context: Gradual Onset Timing: Continuous Quality: Confused, difficulty speaking Location: Generalized Worsened by: Nothing Relieved by: Nothing Narrative Narrative: Patient presents with difficulty speaking, and confusion that has been constant for the past 4 days. Patient states her symptoms started Friday evening. Patient saw her primary care physician today (Friday) who noted that the patient was having some confusion and difficulty speaking as well as some difficulty walking. The patient was then referred to the emergency department for possible stroke. states patient has been somewhat confused at times as well. Patient denies any chest pain or shortness of breath. Patient denies any headaches. Patient denies any nausea or vomiting. [facility] Medical History Blindness of right eye Anemia Gastric reflux Chest pain Wears hearing aid Wears contact lenses Post-menopausal Anxiety History of steroid therapy Thyroid disease Insulin dependent diabetes mellitus Ambulates with cane Arthritis High cholesterol Migraine headache TIA (transient ischemic attack) Difficulty swallowing Dietary restriction History of diverticulitis Non-smoker History of stress test History of rheumatic fever Tardive dyskinesia Major depressive disorder GERD (gastroesophageal reflux disease) Hypertension Hx of emotional problems Home Medications ?Medication ?Instructions ?Recorded ?Last Taken ?Type atorvastatin 40 mg tablet 40 mg PO DAILY 02/28/22 Unkn own History hydrochlorothiazide 12.5 mg tablet 12.5 mg PO DAILY BP 02/28/22 Unknown History timolol maleate 0.5 % eye drops 1 drp ophthalmic (eye) BID 02/28/22 Unknown History lisinopril 20 mg tablet 20 mg PO QDAY 07/10/23 Unkno wn History cholecalciferol (vitamin D3) 25 100 mcg PO QHS 4 Unknown History mcg (1,000 unit) capsule (Vitamin D3) cinnamon bark 500 mg capsule 1,000 mg PO DAILY 4 Unknown History (Cinnamon) omeprazole 20 mg capsule,delayed 20 mg PO DAILY Unknown History release insulin aspart U-100 100 unit/mL 1 sliding scale dose subcut TID 05/31/24 Unknown History (3 mL) subcutaneous pen (Novolog FlexPen U-100 Insulin aspart) insulin glargine 100 unit/mL (3 24 unit subcut QHS Unknown History mL) subcutaneous pen (Basaglar KwikPen U-100 Insulin) dicyclomine 20 mg tablet 20 mg PO BID #28 tabs Unknown Rx deutetrabenazine 18 mg 18 mg PO QDAY #90 tabs 10/28 Unknown Rx tablet,extended release 24 hr (Austedo XR) escitalopram oxalate 10 mg tablet 10 mg PO DAILY #90 t abs 10/28/24 Unknown Rx mirtazapine 15 mg tablet 15 mg PO QHS #90 tabs Unknown Rx acetaminophen 500 mg tablet 1,000 mg PO TID PRN pain 0 11/04/24 Unknown History aspirin 81 mg chewable tablet 81 mg PO DAILY 11/04/24 Unknown History Allergy/AdvReac Type Severity Reaction Status Date / Time codeine Allergy Rash Verified 11/12/24 12:15 morphine Allergy Rash Verified 11/12/24 12:15 Family History Sister Cancer
--- NOTE | 2024-11-12 12:34 | EX.ED.DYSGE1 ---
HPI History of Present Illness Chief Complaint: Neuro S/Sx Informant: patient Onset/Context/Timing Onset: Days (4) Context: Gradual Onset Timing: Continuous Quality: Confused, difficulty speaking Location: Generalized Worsened by: Nothing Relieved by: Nothing Narrative Narrative: Patient presents with difficulty speaking, and confusion that has been constant for the past 4 days. Patient states her symptoms started Friday evening. Patient saw her primary care physician today (Friday) who noted that the patient was having some confusion and difficulty speaking as well as some difficulty walking. The patient was then referred to the emergency department for possible stroke. states patient has been somewhat confused at times as well. Patient denies any chest pain or shortness of breath. Patient denies any headaches. Patient denies any nausea or vomiting. [facility] Medical History Blindness of right eye Anemia Gastric reflux Chest pain Wears hearing aid Wears contact lenses Post-menopausal Anxiety History of steroid therapy Thyroid disease Insulin dependent diabetes mellitus Ambulates with cane Arthritis High cholesterol Migraine headache TIA (transient ischemic attack) Difficulty swallowing Dietary restriction History of diverticulitis Non-smoker History of stress test History of rheumatic fever Tardive dyskinesia Major depressive disorder GERD (gastroesophageal reflux disease) Hypertension Hx of emotional problems Home Medications ?Medication ?Instructions ?Recorded ?Last Taken ?Type atorvastatin 40 mg tablet 40 mg PO DAILY 02/28/22 Unknown History hydrochlorothiazide 12.5 mg tablet 12.5 mg PO DAILY BP 02/28/22 Unknown History timolol maleate 0.5 % eye drops 1 drp ophthalmic (eye) BID 02/28/22 Unknown History lisinopril 20 mg tablet 20 mg PO QDAY 07/10/23 Unknown History cholecalciferol (vitamin D3) 25 100 mcg PO QHS 12/08/23 Unknown History mcg (1,000 unit) capsule (Vitamin D3) cinnamon bark 500 mg capsule 1,000 mg PO DAILY 12/08/23 Unknown History (Cinnamon) omeprazole 20 mg capsule,delayed 20 mg PO DAILY 12/08/23 Unknown History release insulin aspart U-100 100 unit/mL 1 sliding scale dose subcut TID 05/31/24 Unknown History (3 mL) subcutaneous pen (Novolog FlexPen U-100 Insulin aspart) insulin glargine 100 unit/mL (3 24 unit subcut QHS 10/21/24 Unknown History mL) subcutaneous pen (Basaglar KwikPen U-100 Insulin) dicyclomine 20 mg tablet 20 mg PO BID #28 tabs 10/25/24 Unknown Rx deutetrabenazine 18 mg 18 mg PO QDAY #90 tabs 10/28/24 Unknown Rx tablet,extended release 24 hr (Austedo XR) escitalopram oxalate 10 mg tablet 10 mg PO DAILY #90 tabs 10/28/24 Unknown Rx mirtazapine 15 mg tablet 15 mg PO QHS #90 tabs 10/28/24 Unknown Rx acetaminophen 500 mg tablet 1,000 mg PO TID PRN pain 11/04/24 Unknown History aspirin 81 mg chewable tablet 81 mg PO DAILY 11/04/24 Unknown History Allergy/AdvReac Type Severity Reaction Status Date / Time codeine Allergy Rash Verified 11/12/24 12:15 morphine Allergy Rash Verified 11/12/24 12:15 Family History Sister Cancer Surgical History 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 Hx of left cataract extraction Hx of right cataract extraction History of esophagogastroduodenoscopy (EGD) Hx of colonoscopy History of carpal tunnel surgery of right wrist History of carpal tunnel surgery of left wrist History of knee replacement H/O repair of rotator cuff H/O: hysterectomy H/O thyroidectomy Social History Smoking Status: Never smoker alcohol intake: never substance use type: does not use ROS ROS ED Constitutional Constitutional ED: Denies chills or fever(s) Eyes Eyes: Denies blurry vision or change in vision ENT ENT ED: Denies rhinorrhea or sore throat Cardiovascular Cardiovascular: Denies chest pain or palpitations Respiratory/Chest Respiratory/Chest: Denies cough or dyspnea Gastrointestinal Gastrointestinal: Denies nausea or vomiting Genitourinary Genitourinary ED: Denies dysuria or hematuria Musculoskeletal Musculoskeletal: Denies back pain or neck pain Integumentary Denies abscess or rash Neurologic Neurologic: Denies headache(s) or weakness Allergic/Immunologic Allergic/Immunologic ED: Denies mouth swelling or urticaria EXAM Physical Exam Const Vital Signs: 11/12/24 12:16 11/12/24 13:19 11/12/24 13:30 Temperature 98.2 F Temperature Source Oral Pulse Rate 72 67 78 Respiratory Rate 14 13 15 Blood Pressure 166/64 H 186/75 H Blood Pressure Mean 98 108 Pulse Ox 99 84 Oxygen Delivery Method Room Air 11/12/24 13:45 11/12/24 14:00 11/12/24 14:15 Temperature Temperature Source Pulse Rate 78 67 70 Respiratory Rate 13 9 L 9 L Blood Pressure 180/77 H 179/64 H 174/65 H Blood Pressure Mean 107 97 98 Pulse Ox Oxygen Delivery Method Positive well nourished and well developed General Appearance ED: well developed and NAD HEENT Reports moist mucous membranes Neck supple and no JVD Resp normal respiratory effort and clear to auscultation bilaterally Cardio regular rate and regular rhythm GI non-tender and non-distended Palpation: soft Extremity normal to inspection General Extremety ED: Negative for edema or tenderness General Extremity: Negative for edema Neuro oriented x3, CN's II-XII intact bilaterally and no sensory deficits noted Neuro Narrative: Patient is having difficulty speaking and having slurred speech. Sensorium / Orientation: alert Motor Exam: strength 5/5 throughout Psych mental status grossly normal MDM MDM MDM Narrative Medical decision making narrative: Differential diagnosis includes stroke, intracranial bleeding, hepatic encephalopathy, electrolyte abnormality, dehydration, cardiac dysrhythmia, cardiac ischemia, hypertensive urgency, and anxiety. EKG will be obtained to assess for cardiac dysrhythmia and cardiac ischemia. CT scan of the brain will be obtained to assess for stroke or intracranial bleeding. Chest x-ray will be obtained to assess for pneumonia or bronchitis. CBC will be obtained to assess for leukocytosis and anemia. Comprehensive metabolic profile will be obtained to assess for hepatic function, renal function, and electrolyte abnormality. High-sensitivity troponin will be obtained to assess for cardiac ischemia. Serum ammonia level will be obtained to assess for hepatic encephalopathy. Urinalysis will be obtained to assess for urinary tract infection and hematuria. Lab Data Attestation: I reviewed the patient's lab results. Lab results narrative: CBC was reviewed and was within normal limits. Comprehensive metabolic profile was reviewed. Glucose was slightly elevated 214. The remainder is within normal limits. Initial high-sensitivity troponin was reviewed and was minimally elevated at 16. Serum ammonia level was reviewed it was normal at 20. Urinalysis was reviewed. There is no evidence of urinary tract infection or hematuria. Labs: Laboratory Results - last 24 hr 11/12/24 11/12/24 11/12/24 12:35 12:46 14:55 WBC 7.4 RBC 4.22 Hgb 12.2 Hct 36.8 L MCV 87.2 MCH 28.9 MCHC 33.2 RDW Std Deviation 45.2 H RDW Coeff of Dario 14.3 Plt Count 217 MPV 11.5 Immature Gran % (Auto) 0.100 Neut % (Auto) 66.3 Lymph % (Auto) 23.8 [place] % (Auto) 6.5 Eos % (Auto) 2.3 Baso % (Auto) 1.0 Absolute Neuts (auto) 4.9 Absolute Lymphs (auto) 1.75 Nucleated RBC % 0 Sodium 138 Potassium 4.1 Chloride 102 Carbon Dioxide 25.6 Anion Gap 11 BUN 7 Creatinine 0.67 L Est GFR (MDRD) Non-Af 86 BUN/Creatinine Ratio 11.0 Glucose 214 H Calcium 9.8 Total Bilirubin 0.63 AST 30 ALT 23 Alkaline Phosphatase 77 Ammonia 20.0 Troponin T High Sens 16 H Troponin T Hi Sens 2 Hr Total Protein 7.2 Albumin 4.4 Globulin 2.8 Albumin/Globulin Ratio 1.6 Urine Color Straw Urine Clarity Clear Urine pH 7.0 Ur Specific [place] 1.010 Urine Protein 15 H Urine Glucose (UA) 50 H Urine Ketones Negative Urine Occult Blood Negative Urine Nitrite Negative Urine Bilirubin Negative Urine Urobilinogen Normal Ur Leukocyte Esterase Negative Urine RBC 0 SEEN Urine WBC 0-5 SEEN Ur Squamous Epith Cells 0-5 SEEN Urine Bacteria 0 SEEN Urine Mucus 0 SEEN 11/12/24 15:01 WBC RBC Hgb Hct MCV MCH MCHC RDW Std Deviation RDW Coeff of Dario Plt Count MPV Immature Gran % (Auto) Neut % (Auto) Lymph % (Auto) [place] % (Auto) Eos % (Auto) Baso % (Auto) Absolute Neuts (auto) Absolute Lymphs (auto) Nucleated RBC % Sodium Potassium Chloride Carbon Dioxide Anion Gap BUN Creatinine Est GFR (MDRD) Non-Af BUN/Creatinine Ratio Glucose Calcium Total Bilirubin AST ALT Alkaline Phosphatase Ammonia Troponin T High Sens Troponin T Hi Sens 2 Hr 14 Total Protein Albumin Globulin Albumin/Globulin Ratio Urine Color Urine Clarity Urine pH Ur Specific [place] Urine Protein Urine Glucose (UA) Urine Ketones Urine Occult Blood Urine Nitrite Urine Bilirubin Urine Urobilinogen Ur Leukocyte Esterase Urine RBC Urine WBC Ur Squamous Epith Cells Urine Bacteria Urine Mucus Radiography Chest X-Ray - ED: 2 View, Read by ED Physician, Read by Radiologist and No Acute Disease Diagnostic Testing: Clinical Impression(s) from Imaging Studies Brain CT 11/12/24 12:40 IMPRESSION: 1. No evidence of intracranial hemorrhage or acute ischemia. 2. Changes of chronic microvascular ischemia and volume loss. Reading Location: [id number] Chest X-Ray 11/12/24 12:41 IMPRESSION: NO ACUTE FINDINGS. Reading Location: [facility] CT scan of the brain was obtained. There is no acute intracranial abnormality. There are chronic changes noted. This was interpreted by the radiologist and was also independently reviewed by myself. PA and lateral chest x-ray was obtained. There are 2 views. On my independent interpretation, lung magallanes are clear. There is normal cardiac silhouette. Bony thorax is normal. There is no acute process noted. Radiologist also interpreted the x-ray and agrees. EKG Initial EKG: Attestation: I personally reviewed and interpreted this EKG as follows: Interpretation: Sinus Rhythm (66) and No Acute Injury Pattern Comments: EKG was obtained. On my independent interpretation, it showed a normal sinus rhythm with a rate of 66. OK interval, QRS interval, and QTc intervals were all normal. There is borderline left axis deviation of -17. There are no acute ST or T wave changes. Prior EKG tracings: available for review Prior: Unchanged (12/12/2023) Treatment and Re-Evaluation :: Since the patient's last known well was 4 days ago, stroke alert was not called. Patient was advised of her findings. Patient was advised of the need for hospitalization for further evaluation. Case was discussed with the hospitalist. She recommended getting CTA of the head and neck here in the emergency department. She will admit the patient to her service. Patient and spouse understood and were agreeable with the plan. All questions were answered. Discharge Plan Dx/Rx/DC Orders Clinical Impression: Expressive aphasia, Diabetes mellitus, Hypertension Disposition Disposition: [facility]
--- NOTE | 2024-11-12 12:40 | CT_ITS ---
PROCEDURE: BRAIN/HEAD WITHOUT CONTRAST 11/12/2024 REASON FOR EXAM: CONFUSION TECHNIQUE: Procedure Code: CTBR Modality: CT Procedure: BRAIN/HEAD WITHOUT CONTRAST Coronal and Sagittal reconstruction series were provided. One or more dose reduction techniques were used (e.g., Automated exposure control, adjustment of the mA and/or kV according to patient size, use of iterative reconstruction technique. RADIATION DOSE SUMMARY: CTDlvol: 45 mGy DLP: 796 mGycm COMPARISON: December 02, 2022 FINDINGS: Brain: There is no evidence of hemorrhage, acute ischemia or mass. No extra- axial fluid collection, midline shift or mass effect. Low-density in the periventricular white matter. CSF Spaces: Mild generalized cerebral atrophy Sinuses/Mastoids: Clear. Bones: No fracture Partially calcified sebaceous cyst in the scalp near the midline posteriorly. CT/Brain/Head without Contrast IMPRESSION: 1. No evidence of intracranial hemorrhage or acute ischemia. 2. Changes of chronic microvascular ischemia and volume loss. Reading Location: [id number]
--- NOTE | 2024-11-12 12:41 | EKG12_ITS ---
Test Reason : NEURO Blood Pressure : */* mmHG Vent. 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
--- NOTE | 2024-11-12 12:41 | RAD_ITS ---
PROCEDURE: CHEST PA AND LATERAL 11/12/2024 REASON FOR EXAM: WEAKNESS TECHNIQUE: Procedure Code: RADCXR Modality: DX Procedure: CHEST PA AND LATERAL COMPARISON: Prior study dated August 11, 2024. FINDINGS: Hardware: Status post right reverse shoulder replacement. EKG electrodes are seen. Heart: The heart size is normal. Mediastinum: There are atherosclerotic calcifications of the thoracic aorta. Lungs: The lungs are clear. Bones: Degenerative changes are identified within the thoracic spine. RAD/Chest PA and Lateral IMPRESSION: NO ACUTE FINDINGS. Reading Location: [place] [id number]
[2024-11-12 12:59] LABS: Hematocrit 36.8 % (37-47); Hemoglobin 12.2 g/dL (12.0-15.0); Immature Granulocytes Count 0.010 X10^3/uL (0.0-0.0); Mean Corp Hgb Conc 33.2 g/dL (32-36); Mean Corpuscular Volume 87.2 fL (81-99); Mean Platelet Vol. 11.5 fl (6.2-12.0); NRBC Flagged by Analyzer 0 % (0-5); Platelet Count 217 K/mm3 (150-450); RBC Distribution Width CV 14.3 % (11.6-14.6); RBC Distribution Width SD 45.2 fl (35.1-43.9); Red Blood Count 4.22 M/mm3 (4.2-5.4); White Blood Count 7.4 K/mm3 (4.4-11.0)
[2024-11-12 14:08] LABS: AST(SGOT) 30 U/L (<=31); Alanine Aminotransfer ALT/SGPT 23 U/L (<=34); Albumin, Serum 4.4 g/dL (3.4-4.8); Alkaline Phosphatase 77 U/L (35-104); Anion Gap 11 (5-15); BUN 7 mg/dL (4-19); BUN/Creat Ratio 11.0 RATIO (10-20); Calcium,Total 9.8 mg/dL (7.6-11.0); Carbon Dioxide 25.6 mmol/L (21.0-32.0); Chloride 102 mmol/L (98-108); Globulin 2.8 g/dL (2.2-4.2); Glucose 214 mg/dL (70-99); Potassium 4.1 mmol/L (3.3-5.1); Troponin T High Sensitivity 16 ng/L (<=14)
[2024-11-12 14:14] LABS: Ammonia 20.0 umol/L (11-51)
[2024-11-12 15:03] LABS: Mucous, Urine 0 SEEN /hpf (<or=2+); Red Blood Cells-Urine 0 SEEN /hpf (0-5)
[2024-11-12 15:05] LABS: Color, Urine Straw (Yellow); Glucose, Dipstick 50 mg/dl (Normal); Ketone-Dipstick Negative (Negative); Leukocyte Esterase-Dipstick Negative /ul (Negative); Nitrite-Dipstick Negative (Negative); Occult Blood-Urine Negative /ul (Negative); Protein-Dipstick 15 mg/dl (Negative); Specific Gravity, Urine 1.010 (1.002-1.030); Urine Bilirubin Dipstick Negative (Negative)
[2024-11-12 15:18] LABS: Squamous Epithelial Cells - UA 0-5 SEEN /hpf (5-10)
[2024-11-12 15:40] LABS: Troponin T High Sens 2 HR 14 ng/L (<=14)
--- NOTE | 2024-11-12 15:41 | CT_ITS ---
PROCEDURE: CTA HEAD AND NECK W/ CONTRAST 11/12/2024 REASON FOR EXAM: EXPRESSIVE APHASIA TECHNIQUE: Procedure Code: CTCTA.HDNCK Modality: CT Procedure: CTA HEAD AND NECK W/ CONTRAST Multiplanar Sagittal and Coronal images were obtained. CONTRAST: Please see CT VOLUME: Please see CT mL One or more dose reduction techniques were used (e.g., Automated exposure control, adjustment of the mA and/or kV according to patient size, use of iterative reconstruction technique). RADIATION DOSE SUMMARY: CTDlvol: Please see CT mGy DLP: 669.26 mGycm COMPARISON: CT brain without contrast November 12, 2024. FINDINGS: Aorta: The entire thoracic aorta is not included on this exam. The visualized aortic arch is not aneurysmal. No dissection seen at the visualized arch. Mild appearing calcified atherosclerosis and intimal thickening at the aortic arch. Three-vessel branch pattern noted off the aortic arch. Visualized proximal great vessels are slightly tortuous consistent with longstanding systemic arterial hypertension. Brachiocephalic artery: The brachiocephalic artery is patent to its bifurcation. Subclavian arteries: The subclavian arteries are patent bilaterally to the proximal axillary arteries without evidence of abrupt occlusion. Mild atherosclerosis at the origin of the subclavian arteries. Vertebral arteries: The vertebral arteries are patent bilaterally and nearly equally dominant. Both vertebral arteries are patent to the skull base without abrupt occlusion. No vertebral artery dissection. There is gradual tapering of the distal V4 segment left vertebral artery consistent with anatomic variation. Both V4 segments of the vertebral arteries are continuous to the basilar artery. Posteroinferior cerebellar arteries: Posteroinferior cerebellar artery origins are patent bilaterally. Common carotid arteries: The common carotid arteries are patent bilaterally to the common carotid bifurcations without abrupt occlusion. There is mild atherosclerosis of the distal common carotid arteries. External carotid arteries: The external carotid arteries are mildly atherosclerotic but both are patent to their major retromandibular branches. Internal carotid arteries: The internal carotid arteries are slightly tortuous but both are patent from their origin to the ICA terminus without evidence of abrupt occlusion. There is calcified plaque and intimal thickening within the proximal internal carotid arteries and carotid bulbs which does not appear hemodynamically significant bilaterally. No internal carotid dissection. There is intracranial internal carotid artery calcified atherosclerosis which does not appear hemodynamically significant. Basilar artery: The basilar artery is patent to its distal bifurcation. Posterior cerebral arteries: The right P1 segment is not identified. The right posterior cerebral artery appears to be continuation from the right ICA. Right P2 segment is patent. Left P1 and P2 segments of the posterior cerebral arteries are patent. Posterior communicating arteries: The left posterior communicating artery is patent. Superior cerebellar arteries: The superior cerebellar artery origins are patent bilaterally. Anteroinferior cerebellar arteries: The left anteroinferior cerebellar artery origin is faintly visualized. The right anteroinferior cerebellar artery origin is not conclusively visualized. This may represent technical artifact or occlusion of indeterminate acuity. Clinical correlation with symptoms. Anterior cerebral arteries: A1 and A2 segments of the anterior cerebral arteries are patent. Anterior communicating artery: The anterior communicating artery is patent. Middle cerebral arteries: M1 segments of the middle cerebral arteries are patent bilaterally without abrupt occlusion, intraluminal thrombus or hemodynamically significant stenosis. Enhancement of visualized M2 segments appears continuous without abrupt occlusion to suggest an acute medium vessel occlusion. Brain parenchyma: Visualized enhancement along the brain parenchyma peripherally appears symmetric without an obvious territorial distribution of oligemia to suggest acute territorial infarction, however quantitative perfusion analysis by CT or diffusion-weighted MRI would be more accurate in assessing for acute infarct. Please refer to same-day CT brain report for additional findings. Soft tissues: No prevertebral soft tissue swelling. No posterior paraspinal soft tissue hematoma. No cervical soft tissue emphysema. Postoperative changes of the ocular globes noted. Heterogeneity of the right thyroid gland. The left thyroid lobe is predominantly nonvisualized. Clinical correlation with postsurgical change. Lung apices: No consolidation or effusion seen at the visualized lung apices. Osseous: Degenerative changes of the cervical spine noted. No acute fracture. CT/CTA Head AND Neck W/ Contrast IMPRESSION: No evidence of an acute cervical or intracranial large vessel arterial occlusio n. - The right anteroinferior cerebellar artery origin could not be identified. This may represent technical artifact or occlusion of indeterminate acuity. Clinical correlation with symptoms. - There is atherosclerosis but no hemodynamically significant stenosis as discuss ed above. - Other findings discussed above in detail. Reading Location: [id number]
--- NOTE | 2024-11-12 15:59 | CASEMGMT ---
Care Management Face to Face with patient for initial transition planning/care coordination assessment in the ED.? This display card writer introduced self and role at [facility]. Patient alert and oriented. Patient willing to participate in assessment and is able to answer all questions appropriately.? Care providers, pharmacy, and demographics verified. Admitting Diagnosis: ?Neuro s/sx Other diagnosis history: ??thyroid disease, IDDM, arthritis, TIA, GERD, tardive dykinesia PCP: ?Boris Specialists: ?Alonso, ortho; Adi, pain management; Psych, Seese Preferred Pharmacy: [facility] Insurance: ?Medicare Prescription Benefit: ?yes Living Will/HPOA: ?completed LNOK: ? Living Arrangements: patient lives with in one? story home, 2 steps to enter.? Patient reports until this past Friday, she was independent with ADLs, assists with meals, grocery shopping, etc Transportation: ? drives DME: ?walker, cane, wheelchair, shower chair, handicap commode HHC: ?used outpatient after shoulder surgery SNF/Rehab: ?[facility] for medical, [facility] for inpatient psychiatric Community Resources: ?none Behavioral Health History: anxiety Patient goals: Patient wishes to discharge home, denies need for home health care at this time. Patient denies any further needs or concerns at this time. Disposition Plan: admission to acute; RN CM/SW to follow for discharge planning needs that may arise. Erin Cabello, WELFARE ANALYST, [employer]
--- NOTE | 2024-11-12 16:11 | PCM.HP.STD ---
HPI - General General Date of Admission: 11/12/24 Date of Service: 11/12/24 Chief Complaint: Difficulty speaking HPI Narrative Jose SAMPSON, is a 84-year-old female history of hypertension, GERD, diabetes, depression who presented [facility] ED 11/12/2024 with difficulty speaking and possibly some confusion for the past 4 days. Symptoms have been persistent and started Friday evening. Saw PCP today and was noted to have some confusion and difficulty speaking as well as some difficulty walking so she was referred to the ED for possible stroke. In the ED temp 98.2, heart rate 72 and blood pressure 166/64, respiratory rate 14 pulse ox 99% on room air. CBC with white count of 7.4 and hemoglobin 12.2, ammonia 20, CMP BUN of 7 creatinine 0.67 and glucose 213, troponin 16 with a repeat of 14, CT head no acute process, chest x-ray no acute process, UA not suggestive of UTI. Given patient's expressive aphasia and possible receptive aphasia with difficulty walking hospitalist contacted to admit patient for stroke rule out. Patient evaluated at bedside. Reportedly symptoms mostly were noticeable starting Friday in the morning and included difficulty speaking and walking with some possible occasional confusion that did remain the same until today when all of these things worsened. 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 Denies any focal numbness, weakness, tingling. [facility] Medical History Blindness of right eye Anemia Gastric reflux Chest pain Wears hearing aid Wears contact lenses Post-menopausal Anxiety History of steroid therapy Thyroid disease Insulin dependent diabetes mellitus Ambulates with cane Arthritis High cholesterol Migraine headache TIA (transient ischemic attack) Difficulty swallowing Dietary restriction History of diverticulitis Non-smoker History of stress test History of rheumatic fever Tardive dyskinesia Major depressive disorder GERD (gastroesophageal reflux disease) Hypertension Hx of emotional problems Home Medications ?Medication ?Instructions ?Recorded ?Last Taken ?Type atorvastatin 40 mg tablet 40 mg PO DAILY 02/28/22 Unknown History hydrochlorothiazide 12.5 mg tablet 12.5 mg PO DAILY BP 02/28/22 Unknown History timolol maleate 0.5 % eye drops 1 drp ophthalmic (eye) BID 02/28/22 Unknown History lisinopril 20 mg tablet 20 mg PO QDAY 07/10/23 Unknown History cholecalciferol (vitamin D3) 25 100 mcg PO QHS 12/08/23 Unknown History mcg (1,000 unit) capsule (Vitamin D3) cinnamon bark 500 mg capsule 1,000 mg PO DAILY 12/08/23 Unknown History (Cinnamon) omeprazole 20 mg capsule,delayed 20 mg PO DAILY 12/08/23 Unknown History release insulin aspart U-100 100 unit/mL 1 sliding scale dose subcut TID 05/31/24 Unknown History (3 mL) subcutaneous pen (Novolog FlexPen U-100 Insulin aspart) insulin glargine 100 unit/mL (3 24 unit subcut QHS 10/21/24 Unknown History mL) subcutaneous pen (Basaglar KwikPen U-100 Insulin) dicyclomine 20 mg tablet 20 mg PO BID #28 tabs 10/25/24 Unknown Rx deutetrabenazine 18 mg 18 mg PO QDAY #90 tabs 10/28/24 Unknown Rx tablet,extended release 24 hr (Austedo XR) escitalopram oxalate 10 mg tablet 10 mg PO DAILY #90 tabs 10/28/24 Unknown Rx mirtazapine 15 mg tablet 15 mg PO QHS #90 tabs 10/28/24 Unknown Rx acetaminophen 500 mg tablet 1,000 mg PO TID PRN pain 11/04/24 Unknown History aspirin 81 mg chewable tablet 81 mg PO DAILY 11/04/24 Unknown History Allergy/AdvReac Type Severity Reaction Status Date / Time codeine Allergy Rash Verified 11/12/24 12:15 morphine Allergy Rash Verified 11/12/24 12:15 Family History Sister Cancer Surgical History 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 Hx of left cataract extraction Hx of right cataract extraction History of esophagogastroduodenoscopy (EGD) Hx of colonoscopy History of carpal tunnel surgery of right wrist History of carpal tunnel surgery of left wrist History of knee replacement H/O repair of rotator cuff H/O: hysterectomy H/O thyroidectomy Social History Smoking Status: Never smoker alcohol intake: never substance use type: does not use ROS ROS Narrative General: Denies fever/chills HENT: Denies headache, denies stuffy nose, denies sore throat EYES: Denies changes in vision, chronic right sided blindness Resp: Denies cough, denies shortness of breath Cardiac: Denies chest pain GI: Intermittent problems with diarrhea and abdominal pain, supposed to have gallbladder out next week : Denies changes in urination Extremity: Denies swelling MSK: Denies focal weakness Neuro: Denies any numbness/tingling Heme: Denies any bleeding or bruising Skin: Denies rashes Psychiatric: No complaints voiced Vital Signs Vital Signs Vital Signs: 11/12/24 12:16 11/12/24 13:19 11/12/24 13:30 Temperature 98.2 F Temperature Source Oral Pulse Rate 72 67 78 Respiratory Rate 14 13 15 Blood Pressure 166/64 H 186/75 H Blood Pressure Mean 98 108 Pulse Ox 99 84 Oxygen Delivery Method Room Air 11/12/24 13:45 11/12/24 14:00 11/12/24 14:15 Temperature Temperature Source Pulse Rate 78 67 70 Respiratory Rate 13 9 L 9 L Blood Pressure 180/77 H 179/64 H 174/65 H Blood Pressure Mean 107 97 98 Pulse Ox Oxygen Delivery Method 11/12/24 14:30 11/12/24 14:53 11/12/24 15:00 Temperature Temperature Source Pulse Rate 68 80 81 Respiratory Rate 10 L 27 H 18 Blood Pressure 152/98 H Blood Pressure Mean 111 Pulse Ox 97 99 Oxygen Delivery Method 11/12/24 15:03 11/12/24 15:15 11/12/24 15:30 Temperature Temperature Source Pulse Rate 78 79 74 Respiratory Rate 14 16 9 L Blood Pressure 171/71 H 186/117 H 178/74 H Blood Pressure Mean 101 127 104 Pulse Ox 100 99 98 Oxygen Delivery Method 11/12/24 15:45 11/12/24 15:46 11/12/24 16:00 Temperature Temperature Source Pulse Rate 108 H 83 84 Respiratory Rate 22 H 19 H 12 Blood Pressure 206/54 H Blood Pressure Mean 96 Pulse Ox Oxygen Delivery Method Physical Exam Narrative General: Alert, no apparent distress HEENT: Atraumatic, normocephalic Eyes: Anicteric, normal conjunctiva, extraocular movements intact, pupils equal Neck: Supple Respiratory: Clear to auscultation bilaterally, normal respiratory effort Cardiovascular: Regular rate and rhythm GI: Soft, nontender, nondistended Extremities: No edema Musculoskeletal: Strength 5 out of 5 in right upper extremity, 5 out of 5 left upper extremity, 5 out of 5 right lower extremity, 5 out of 5 left lower extremity Neuro: Does have expressive aphasia with some components of receptive aphasia otherwise no overt focal neurological deficits, cranial nerves II through XII intact, did have some difficulty with [id number] bilaterally but more so with left hand Skin: No rashes appreciated Psych: Cooperative Results Lab / Micro Data 11/12/24 12:35 11/12/24 12:35 Labs: Laboratory Results - last 24 hr 11/12/24 12:35: WBC 7.4, RBC 4.22, Hgb 12.2, Hct 36.8 L, MCV 87.2, MCH 28.9, MCHC 33.2, RDW Std Deviation 45.2 H, RDW Coeff of Dario 14.3, Plt Count 217, MPV 11.5, Immature Gran % (Auto) 0.100, Neut % (Auto) 66.3, Lymph % (Auto) 23.8, [place] % (Auto) 6.5, Eos % (Auto) 2.3, Baso % (Auto) 1.0, Absolute Neuts (auto) 4.9, Absolute Lymphs (auto) 1.75, Nucleated RBC % 0, Sodium 138, Potassium 4.1, Chloride 102, Carbon Dioxide 25.6, Anion Gap 11, BUN 7, Creatinine 0.67 L, Est GFR (MDRD) Non-Af 86, BUN/Creatinine Ratio 11.0, Glucose 214 H, Calcium 9.8, Total Bilirubin 0.63, AST 30, ALT 23, Alkaline Phosphatase 77, Troponin T High Sens 16 H, Total Protein 7.2, Albumin 4.4, Globulin 2.8, Albumin/Globulin Ratio 1.6 11/12/24 12:46: Ammonia 20.0 11/12/24 14:55: Urine Color Straw, Urine Clarity Clear, Urine pH 7.0, Ur Specific [place] 1.010, Urine Protein 15 H, Urine Glucose (UA) 50 H, Urine Ketones Negative, Urine Occult Blood Negative, Urine Nitrite Negative, Urine Bilirubin Negative, Urine Urobilinogen Normal, Ur Leukocyte Esterase Negative, Urine RBC 0 SEEN, Urine WBC 0-5 SEEN, Ur Squamous Epith Cells 0-5 SEEN, Urine Bacteria 0 SEEN, Urine Mucus 0 SEEN 11/12/24 15:01: Troponin T Hi Sens 2 Hr 14 Imaging Radiology Impression Brain CT 11/12/24 12:40 IMPRESSION: 1. No evidence of intracranial hemorrhage or acute ischemia. 2. Changes of chronic microvascular ischemia and volume loss. Reading Location: [facility] Chest X-Ray 11/12/24 12:41 IMPRESSION: NO ACUTE FINDINGS. Reading Location: [place] [id number] Assessment & Plan Assessment/Plan (1) Expressive aphasia: PLAN: Plan # Expressive and receptive aphasia -Last known well Friday, not a candidate for any acute treatment -Admit to tele -CT head w/ no acute process -CTA head and neck ordered -MRI ordered -NIH q4hr -asa, statin -Echo -PT/OT/Speech eval -Teleneuro consult placed -Will check TSH -Lipid panel in the a.m. #Type 2 diabetes mellitus -Glucose checks and sliding scale insulin -Continue long-acting insulin though at slightly lower dose and uptitrate as glucoses tolerate #Depression/anxiety -Continue home medications #GERD -Continue PPI #Hypertension - Do not think patient needs permissive hypertension given symptoms been present since Friday/Friday -Will plan on continuing home medications at this time # Plans for cholecystectomy -Patient have routine cholecystectomy next week for intermittent problems with abdominal pain and diarrhea #DVT ppx: SCDs Carmel Weston MD Charges/Coding Visit Charges Inpatient E&M: 15455 Init Hosp L2
--- NOTE | 2024-11-12 16:22 | ECHOCS_ITS ---
Reason For Study Reason For Study: TIA/CVA Procedure This was a 2D Doppler, Color Flow transthoracic echocardiogram. The study was technically difficult. D/T suboptimal imaging windows. Contrast injection was performed. Exam performed portable in patient room. Left Ventricle Normal LV size. Left ventricular systolic function is hyperdynamic. The estimated ejection fraction is 75 %. No regional wall motion abnormalities noted. Right Ventricle Normal RV size. Normal systolic function. Atria The left and right atria are normal. No doppler evidence for ASD. Mitral Valve There is no mitral valve stenosis. No mitral valve insufficiency. Tricuspid Valve There is no tricuspid stenosis. Trivial tricuspid valve insufficiency. Unable to estimate RV systolic pressure due to insufficient tricuspid regurgitant envelope. Aortic Valve Trisinus/trileaflet aortic valve. Mild diffuse aortic valve thickening. There is no aortic stenosis. No aortic valve insufficiency. Pulmonic Valve There is no pulmonic valvular stenosis. No pulmonic valve insufficiency. Great Vessels Normal sized aortic root. Pericardium/Pleural No pericardial effusion. Medication Diluted definity 1.5ml given slow IV push to enhance endocardial definition. MMode/2D Measurements & Calculations LVIDd: 3.4 cm IVSd: 1.2 cm Ao root diam: 3.0 cm LVIDs: 1.8 cm LVPWd: 1.2 cm FS: 46.0 % asc Aorta Diam: 3.5 cm LAV(MOD-sp2): 23.7 ml LA dimension(2D): 3.4 cm TAPSE: 2.1 cm Time Measurements MV dec time: 0.17 sec Doppler Measurements & Calculations MV E max bob: 54.4 cm/sec Lat Peak E' Bob: 6.8 cm/sec Med Peak E' Bob: 6.4 cm/sec MV A max bob: 106.3 cm/sec E/E' lat: 7.9 E/E' med: 8.5 MV E/A: 0.51 MV V2 max: 124.2 cm/sec MV P1/2t max bob: 127.7 cm/sec Ao V2 max: 218.3 cm/sec MV max P.2 mmHg MV P1/2t: 78.4 msec Ao max P.1 mmHg MV V2 mean: 80.3 cm/sec Ao V2 mean: 149.2 cm/sec MV mean P.9 mmHg MV dec slope: 477.3 cm/sec2 Ao mean P.2 mmHg MV V2 VTI: 30.1 cm MVA(P1/2t): 2.8 cm2 Ao V2 VTI: 32.0 cm PA V2 max: 139.8 cm/sec TR max bob: 294.0 cm/sec TR max P.3 mmHg ECHO/Echo Complete W/ Contrast Interpretation Summary Left ventricular systolic function is hyperdynamic. The estimated ejection fraction is 75 %. Ordering Physician: Carmel Weston Referring Physician: Mat Escalante Performed By: Ghazal Alvarado RDCS, RVT
--- NOTE | 2024-11-12 16:22 | MRI_ITS ---
PROCEDURE: BRAIN WITHOUT CONTRAST 11/12/2024 REASON FOR EXAM: SUSPECTED CVA TECHNIQUE: Procedure Code: MRIBR Modality: MR Procedure: BRAIN WITHOUT CONTRAST Multiplanar and multisequence images were obtained. FINDINGS: BRAIN: No restricted diffusion to indicate acute infarction. No intracranial mass or hemorrhage. No midline shift or extra-axial fluid collection. No sulcal effacement. Mild high T2/FLAIR signal intensity in the deep white matter, likely microvascular ischemic changes. Diffuse cerebral volume loss. No cerebellar tonsillar ectopia. The central arterial and venous flow voids are patent. VENTRICLES: No hydrocephalus. ORBITS: Intraocular lens implants bilaterally. The orbits are otherwise unremarkable. SINUSES AND MASTOIDS: The sinuses and mastoid air cells are clear. BONES: No focal osseous lesion. MRI/Brain without Contrast IMPRESSION: CEREBRAL ATROPHY WITH CHRONIC SMALL VESSEL ISCHEMIC DISEASE. OTHERWISE UNREMAR KABLE BRAIN MRI WITHOUT CONTRAST. Reading Location: [id number]
[2024-11-12 17:37] LABS: Troponin T High Sens 4 HR 16 ng/L (<=14)
[2024-11-12] MEDS: Timolol 0.5% 5ML OPTH.BTL 1 DRP OPHTHALMIC (22:09)
[2024-11-12] MEDS: Insulin Glargine-YFGN 100 UNIT/ML Pen 20 UNIT SC (22:10)
[2024-11-13] VITALS (12 sets, daily range): BP systolic 143–173; BP diastolic 54–86; PULSE 75–126; RESP 14–20; TEMP 36.3–37.4; O2SAT 93–100; BMI 25.2
[2024-11-13] MEDS: 0.9% Saline Lock 10 ML Syringe IV (03:13)
[2024-11-13 07:18] LABS: Hematocrit 36.6 % (37-47); Hemoglobin 12.1 g/dL (12.0-15.0); Immature Granulocytes Count 0.020 X10^3/uL (0.0-0.0); Mean Corp Hgb Conc 33.1 g/dL (32-36); Mean Corpuscular Volume 86.1 fL (81-99); Mean Platelet Vol. 11.1 fl (6.2-12.0); NRBC Flagged by Analyzer 0 % (0-5); Platelet Count 211 K/mm3 (150-450); RBC Distribution Width CV 14.5 % (11.6-14.6); RBC Distribution Width SD 45.2 fl (35.1-43.9); Red Blood Count 4.25 M/mm3 (4.2-5.4); White Blood Count 7.9 K/mm3 (4.4-11.0)
--- NOTE | 2024-11-13 07:40 | PCM.PN.HOSP ---
Reason for Visit Chief Complaint: Difficulty speaking Subjective Subjective Patient is an 84-year-old lady who was admitted with expressive receptive aphasia admitted to monitored bed for workup of suspected stroke. Patient seen she is hesitant in answering questions.. She had apparently been seen by speech therapy earlier on and cleared for regular diet she however complained choking sensation with drinking and started coughing. Objective Data Objective Data Vital Signs: Vital Signs Temp Pulse Resp BP Pulse Ox O2 Del Method 97.7 F L 88 14 154/54 H 98 Room Air 11/13/24 06:40 11/13/24 06:40 11/13/24 06:40 11/13/24 06:40 11/13/24 06:40 11/13/24 06:40 Oxygen Delivery Method Room Air Weight: 66.6 kg Body Mass Index (BMI) 25.2 Intake & Output: Intake and Output for Last 24 Hours 11/11/24 11/12/24 11/13/24 23:59 23:59 23:59 Intake Total 400 / 400 160 / 160 Balance 400 / 400 160 / 160 Lab / Micro Data 11/13/24 06:48 11/13/24 06:48 Labs: Laboratory Results - last 24 hr 11/12/24 12:35: WBC 7.4, RBC 4.22, Hgb 12.2, Hct 36.8 L, MCV 87.2, MCH 28.9, MCHC 33.2, RDW Std Deviation 45.2 H, RDW Coeff of Dario 14.3, Plt Count 217, MPV 11.5, Immature Gran % (Auto) 0.100, Neut % (Auto) 66.3, Lymph % (Auto) 23.8, [place] % (Auto) 6.5, Eos % (Auto) 2.3, Baso % (Auto) 1.0, Absolute Neuts (auto) 4.9, Absolute Lymphs (auto) 1.75, Nucleated RBC % 0, Sodium 138, Potassium 4.1, Chloride 102, Carbon Dioxide 25.6, Anion Gap 11, BUN 7, Creatinine 0.67 L, Est GFR (MDRD) Non-Af 86, BUN/Creatinine Ratio 11.0, Glucose 214 H, Calcium 9.8, Total Bilirubin 0.63, AST 30, ALT 23, Alkaline Phosphatase 77, Troponin T High Sens 16 H, Total Protein 7.2, Albumin 4.4, Globulin 2.8, Albumin/Globulin Ratio 1.6 11/12/24 12:46: Ammonia 20.0 11/12/24 14:55: Urine Color Straw, Urine Clarity Clear, Urine pH 7.0, Ur Specific [place] 1.010, Urine Protein 15 H, Urine Glucose (UA) 50 H, Urine Ketones Negative, Urine Occult Blood Negative, Urine Nitrite Negative, Urine Bilirubin Negative, Urine Urobilinogen Normal, Ur Leukocyte Esterase Negative, Urine RBC 0 SEEN, Urine WBC 0-5 SEEN, Ur Squamous Epith Cells 0-5 SEEN, Urine Bacteria 0 SEEN, Urine Mucus 0 SEEN 11/12/24 15:01: Troponin T Hi Sens 2 Hr 14 11/12/24 17:08: Troponin T Hi Sens 4Hr 16 H 11/12/24 22:05: POC Glucose 233 H 11/13/24 03:10: POC Glucose 141 H 11/13/24 06:48: WBC 7.9, RBC 4.25, Hgb 12.1, Hct 36.6 L, MCV 86.1, MCH 28.5, MCHC 33.1, RDW Std Deviation 45.2 H, RDW Coeff of Dario 14.5, Plt Count 211, MPV 11.1, Immature Gran % (Auto) 0.300, Neut % (Auto) 55.8, Lymph % (Auto) 31.3, [place] % (Auto) 8.3, Eos % (Auto) 3.3, Baso % (Auto) 1.0, Absolute Neuts (auto) 4.4, Absolute Lymphs (auto) 2.46, Nucleated RBC % 0 11/13/24 06:51: POC Glucose 159 H Radiography Diagnostic Testing: Radiology Impression Brain CT 11/12/24 12:40 IMPRESSION: 1. No evidence of intracranial hemorrhage or acute ischemia. 2. Changes of chronic microvascular ischemia and volume loss. Reading Location: [id number] Chest X-Ray 11/12/24 12:41 IMPRESSION: NO ACUTE FINDINGS. Reading Location: [facility] Head/Neck CTA 11/12/24 15:41 IMPRESSION: No evidence of an acute cervical or intracranial large vessel arterial occlusion. - The right anteroinferior cerebellar artery origin could not be identified. This may represent technical artifact or occlusion of indeterminate acuity. Clinical correlation with symptoms. - There is atherosclerosis but no hemodynamically significant stenosis as discussed above. - Other findings discussed above in detail. Reading Location: [facility] Brain MRI 11/12/24 16:22 IMPRESSION: CEREBRAL ATROPHY WITH CHRONIC SMALL VESSEL ISCHEMIC DISEASE. OTHERWISE UNREMARKABLE BRAIN MRI WITHOUT CONTRAST. Reading Location: [facility] Physical Exam Narrative GENERAL: cooperative HEENT: Atraumatic; normocephalic EYES; Anicteric, Normal Conjunctiva NECK; supple, normal thyroid, RESPIRATORY: Diminished to auscultation CARDIOVASCULAR: Regular S1 S2, GI: soft, normoactive bowel sounds, : No Renal angle tenderness; EXTREMITIES: No edema, no clubbing, MUSCULOSKELETAL: no muscle wasting NEURO: Awake; no lateralizing signs. SKIN: No Rash PSYCH; Flat affect Assessment & Plan Assessment/Plan (1) Expressive aphasia: PLAN: Plan Patient is an 84-year-old lady who was admitted with expressive receptive aphasia admitted to monitored bed for workup of suspected stroke 1. Expressive and receptive aphasia?CVA ruled out ? Patient was deemed not a candidate for TNK on admission admitted to monitored bed as part of her management ordered 2D echo, neurochecks every 4 hours and MRI. MRI demonstrated cerebral atrophy with chronic small vessel ischemic disease otherwise unremarkable brain without contrast. Did administer 0.5 mg of IV lorazepam for possible anxiety 2. Diabetes mellitus type II -patient's oral hypoglycemics held. Placed on long acting insulin, Accu-Cheks a.c. and at bedtime and covered with sliding scale insulin 3. Hypertension ? Blood pressure control not optimal did continue home meds with plans to adjust doses as needed 4. Depression with anxiety ? May be contributing to patient's symptoms. Patient is on escitalopram did continue 5. GERD ? On PPI 6. Cholelithiasis ? Patient apparently has cholecystectomy planned for the coming week 7. DVT prophylaxis ? Subcu Lovenox Time spent in the patient's overall evaluation,decision-making process, review of diagnostic data, adjustment of management, discussion with other providers, nursing nursing and ancillary staff involved in patient's care documentation, 38 Minutes Charges/Coding Visit Charges Inpatient E&M: 94191 Subs Hosp L2 NIHSS NIHSS Nursing Documentation NIHSS Nursing Documentation: NIHSS: Ischemic Stroke/TIA Start: 11/12/24 16:38 Text: For PCU Patients: NIH and Neuro Check every 4 Status: Complete hours, PRN and with change in RN caregiver. Freq: [id number] Protocol: Activity Type Activity Date Activity User E-sign Co-sign Detail Recorded Client Recorded Date Recorded By Document 11/13/24 00:15 MG [id number] 11/13/24 00:19 MG 11/13/24 00:15 NIH Stroke Scale [NIHSS] A score of 0 is normal or asymptomatic . Total possible score is 42. Inpatient: RN or Physician to activate a stroke alert for onset of new stroke symptoms or with NIHSS increase >/= 3 points. Following change in neurological status, NIHSS will be performed per physician order or more frequently PRN. -1a. Level of Consciousness 0 - Alert; keenly responsive -1b. LOC Questions 0 - Answers BOTH questions correctly -1c. LOC Commands 0 - Performs BOTH tasks correctly -2. Best Gaze 0 - Normal -3. Visual 1 - Partial hemianopia -4. Facial Palsy 0 - Normal symmetrical movements -5a. Left Arm 0 - No drift; arm holds 90 ( or 45) degrees for full 10 seconds -5b. Right Arm 0 - No drift; arm holds 90 ( or 45) degrees for full 10 seconds -6a. Left Leg 0 - No drift; leg holds 30- degree position for full 5 seconds -6b. Right Leg 0 - No drift; leg holds 30- degree position for full 5 seconds -7. Limb Ataxia 0 - Absent -8. Sensory 0 - Normal; no sensory loss -9. Best Language 0 - No aphasia; normal -10. Dysarthria 1 = Mild-to- moderate dysarthria; -11. Extinction and Inattention 0 - No abnormality -Total 2 Query Text:A score of 0 is normal or asymptomatic. Total possible score is 42 . ED: Notify Physician for NIHSS increase by > / = 3 points. Inpatient: RN or Physician to activate a stroke alert for NIHSS increase of > / = 3 points. Coma Scale [Assess] -Eye Opening Spontaneous -Motor Obeys Commands -Verbal Oriented [Total] -Coma Scale Total 15
[2024-11-13 07:48] LABS: Anion Gap 12 (5-15); BUN 7 mg/dL (4-19); BUN/Creat Ratio 10.9 RATIO (10-20); Calcium,Total 9.8 mg/dL (7.6-11.0); Carbon Dioxide 24.2 mmol/L (21.0-32.0); Chloride 102 mmol/L (98-108); Cholesterol 126 mg/dL (<=200); Estimated Creatinine Clearance 48.26 ml/min (50-250); Glucose 161 mg/dL (70-99); Low Density Lipoprotein Calc. 47 mg/dL; Magnesium 1.8 mg/dL (1.5-2.2); Potassium 3.9 mmol/L (3.3-5.1); Triglycerides 146 mg/dL; Very Low Density Lipoprotein 29 mg/dL (5-40); cholesterol:hdl ratio screen 2.54
[2024-11-13] MEDS: Timolol 0.5% 5ML OPTH.BTL 1 DRP OPHTHALMIC ×2 (09:58→20:59)
--- NOTE | 2024-11-13 11:17 | PCM.DC.SUM ---
Providers Date of Admission: 11/12/24 Date of Discharge: 11/13/24 Primary Care Physician: Dr. Mat Escalante MD Consultations 11/12/24 16:38 Consult: Tele-Neurology Routine Consulting Provider: [facility] Reason for Consult: Acute Ischemic Stroke/TIA EMERGENT Consult: No Notified: Yes Date Notified: 11/12/24 Time Notified: 16:46 Method of Notification: Answering Service Nursing Unit Staff Notify [facility] of Tele-Neurology Consult: Yes Reason For Visit: CVA RULE OUT Diagnosis Discharge Diagnosis (1) Expressive aphasia: Status: Acute Code(s): R47.01 - Aphasia Plan Patient is an 84-year-old lady who was admitted with expressive receptive aphasia admitted to monitored bed for workup of suspected stroke 1. Expressive and receptive aphasia?CVA ruled out ? Patient was deemed not a candidate for TNK on admission admitted to monitored bed as part of her management ordered 2D echo, neurochecks every 4 hours and MRI. MRI demonstrated cerebral atrophy with chronic small vessel ischemic disease otherwise unremarkable brain without contrast. Did administer 0.5 mg of IV lorazepam for possible anxiety 2. Diabetes mellitus type II -patient's oral hypoglycemics held. Placed on long acting insulin, Accu-Cheks a.c. and at bedtime and covered with sliding scale insulin 3. Hypertension ? Blood pressure control not optimal did continue home meds with plans to adjust doses as needed 4. Depression with anxiety ? May be contributing to patient's symptoms. Patient is on escitalopram did continue 5. GERD ? On PPI 6. Cholelithiasis ? Patient apparently has cholecystectomy planned for the coming week 7. DVT prophylaxis ? Subcu Lovenox Time spent in the patient's overall evaluation,decision-making process, review of diagnostic data, adjustment of management, discussion with other providers, nursing nursing and ancillary staff involved in patient's care documentation, 38 Minutes Medications at Discharge Home Medications atorvastatin 40 mg tablet 40 mg PO DAILY 02/28/22 hydrochlorothiazide 12.5 mg tablet 12.5 mg PO DAILY BP 02/28/22 timolol maleate 0.5 % eye drops 1 drp ophthalmic (eye) BID 02/28/22 lisinopril 20 mg tablet 20 mg PO QDAY 07/10/23 cholecalciferol (vitamin D3) 25 mcg (1,000 unit) capsule (Vitamin D3) 100 mcg PO QHS 12/08/23 cinnamon bark 500 mg capsule (Cinnamon) 1,000 mg PO DAILY 12/08/23 omeprazole 20 mg capsule,delayed release 20 mg PO DAILY 12/08/23 insulin aspart U-100 100 unit/mL (3 mL) subcutaneous pen (Novolog FlexPen U-100 Insulin aspart) 1 sliding scale dose subcut TID 05/31/24 insulin glargine 100 unit/mL (3 mL) subcutaneous pen (Basaglar KwikPen U-100 Insulin) 24 unit subcut QHS 10/21/24 dicyclomine 20 mg tablet 20 mg PO BID #28 tabs 10/25/24 deutetrabenazine 18 mg tablet,extended release 24 hr (Austedo XR) 18 mg PO QDAY #90 tabs 10/28/24 escitalopram oxalate 10 mg tablet 10 mg PO DAILY #90 tabs 10/28/24 mirtazapine 15 mg tablet 15 mg PO QHS #90 tabs 10/28/24 acetaminophen 500 mg tablet 1,000 mg PO TID PRN pain 11/04/24 aspirin 81 mg chewable tablet 81 mg PO DAILY 11/04/24 Physical Exam Narrative GENERAL: cooperative HEENT: Atraumatic; normocephalic EYES; Anicteric, Normal Conjunctiva NECK; supple, normal thyroid, RESPIRATORY: Diminished to auscultation CARDIOVASCULAR: Regular S1 S2, GI: soft, normoactive bowel sounds, : No Renal angle tenderness; EXTREMITIES: No edema, no clubbing, MUSCULOSKELETAL: no muscle wasting NEURO: Awake; no lateralizing signs. SKIN: No Rash PSYCH; Flat affect Weight / BMI Weight Weight: 66.6 kg Body Mass Index (BMI) 25.2 ABG / Lab / Microbiology Data 11/13/24 06:48 11/13/24 06:48 Laboratory: Laboratory Results - last 24 hr 11/12/24 12:35: WBC 7.4, RBC 4.22, Hgb 12.2, Hct 36.8 L, MCV 87.2, MCH 28.9, MCHC 33.2, RDW Std Deviation 45.2 H, RDW Coeff of Dario 14.3, Plt Count 217, MPV 11.5, Immature Gran % (Auto) 0.100, Neut % (Auto) 66.3, Lymph % (Auto) 23.8, [place] % (Auto) 6.5, Eos % (Auto) 2.3, Baso % (Auto) 1.0, Absolute Neuts (auto) 4.9, Absolute Lymphs (auto) 1.75, Nucleated RBC % 0, Sodium 138, Potassium 4.1, Chloride 102, Carbon Dioxide 25.6, Anion Gap 11, BUN 7, Creatinine 0.67 L, Est GFR (MDRD) Non-Af 86, BUN/Creatinine Ratio 11.0, Glucose 214 H, Calcium 9.8, Total Bilirubin 0.63, AST 30, ALT 23, Alkaline Phosphatase 77, Troponin T High Sens 16 H, Total Protein 7.2, Albumin 4.4, Globulin 2.8, Albumin/Globulin Ratio 1.6 11/12/24 12:46: Ammonia 20.0 11/12/24 14:55: Urine Color Straw, Urine Clarity Clear, Urine pH 7.0, Ur Specific [place] 1.010, Urine Protein 15 H, Urine Glucose (UA) 50 H, Urine Ketones Negative, Urine Occult Blood Negative, Urine Nitrite Negative, Urine Bilirubin Negative, Urine Urobilinogen Normal, Ur Leukocyte Esterase Negative, Urine RBC 0 SEEN, Urine WBC 0-5 SEEN, Ur Squamous Epith Cells 0-5 SEEN, Urine Bacteria 0 SEEN, Urine Mucus 0 SEEN 11/12/24 15:01: Troponin T Hi Sens 2 Hr 14 11/12/24 17:08: Troponin T Hi Sens 4Hr 16 H 11/12/24 22:05: POC Glucose 233 H 11/13/24 03:10: POC Glucose 141 H 11/13/24 06:48: WBC 7.9, RBC 4.25, Hgb 12.1, Hct 36.6 L, MCV 86.1, MCH 28.5, MCHC 33.1, RDW Std Deviation 45.2 H, RDW Coeff of Dario 14.5, Plt Count 211, MPV 11.1, Immature Gran % (Auto) 0.300, Neut % (Auto) 55.8, Lymph % (Auto) 31.3, [place] % (Auto) 8.3, Eos % (Auto) 3.3, Baso % (Auto) 1.0, Absolute Neuts (auto) 4.4, Absolute Lymphs (auto) 2.46, Nucleated RBC % 0, Sodium 138, Potassium 3.9, Chloride 102, Carbon Dioxide 24.2, Anion Gap 12, BUN 7, Creatinine 0.60 L, Estim Creat Clear Calc 48.26 L, Est GFR (MDRD) Non-Af 88, BUN/Creatinine Ratio 10.9, Glucose 161 H, Calcium 9.8, Magnesium 1.8, Triglycerides 146, Cholesterol 126, LDL Cholesterol, Calc 47, VLDL Cholesterol 29, HDL Cholesterol 50, Cholesterol/HDL Ratio 2.54, TSH 2.280 11/13/24 06:51: POC Glucose 159 H Radiography Diagnostic Testing: Radiology Impression Brain CT 11/12/24 12:40 IMPRESSION: 1. No evidence of intracranial hemorrhage or acute ischemia. 2. Changes of chronic microvascular ischemia and volume loss. Reading Location: [id number] Chest X-Ray 11/12/24 12:41 IMPRESSION: NO ACUTE FINDINGS. Reading Location: [facility] Head/Neck CTA 11/12/24 15:41 IMPRESSION: No evidence of an acute cervical or intracranial large vessel arterial occlusion. - The right anteroinferior cerebellar artery origin could not be identified. This may represent technical artifact or occlusion of indeterminate acuity. Clinical correlation with symptoms. - There is atherosclerosis but no hemodynamically significant stenosis as discussed above. - Other findings discussed above in detail. Reading Location: [id number] Brain MRI 11/12/24 16:22 IMPRESSION: CEREBRAL ATROPHY WITH CHRONIC SMALL VESSEL ISCHEMIC DISEASE. OTHERWISE UNREMARKABLE BRAIN MRI WITHOUT CONTRAST. Reading Location: [id number] D/C Instructions Discharge Activity: Return to Normal Activity Call your doctor if you observe: Fever of 101 or Higher, Shortness of breath, Fainting spells and Chest pain DC O2, CPAP, BIPAP Needs Home O2 Discharge instructions: No Meaningful Use Info Meaningful Use Meaningful Use Diagnoses (Choose all that apply): None applicable Discharge Plan Admission Admit Date/Time: 11/12/24 16:11 Attending Provider: Rajeev Odonnell Primary Care Provider: Schinner,Mat E Consulting Providers: Black Avery; Tania Gerardo; Carolin Greenwood; Esme Sow; Sarai Ramírez; Jeff Mayberry; Gauri Saxena; Luke Aaron; Flex Beckford; El Perry; Chelsi Narayanan; Eugenia Mixon; Obie Denson; Eve Isaac; Sheyla Sims; Cecilia Munoz; Rashid Garcia; Laly Winchester; Darrick Morales; April Stern; Obi Butler; Carmel Weston Discharge Orders/Prescriptions Prescriptions: Continued hydrochlorothiazide 12.5 mg tablet 12.5 mg PO DAILY Patient Comments: Take 1 tablet by mouth daily atorvastatin 40 mg tablet 40 mg PO DAILY Patient Comments: TAKE 1 TABLET DAILY timolol maleate 0.5 % drops 1 drp ophthalmic (eye) BID Patient Comments: 1 drop in right eye daily lisinopril 20 mg tablet 20 mg PO QDAY [place] XR 18 mg tablet extended release 24 hr 18 mg PO QDAY Qty: 90 1RF escitalopram oxalate 10 mg tablet 10 mg PO DAILY Qty: 90 1RF mirtazapine 15 mg tablet 15 mg PO QHS Qty: 90 1RF insulin glargine [Basaglar KwikPen U-100 Insulin] 100 unit/mL (3 mL) insulin pen 24 unit subcut QHS dicyclomine 20 mg tablet 20 mg PO BID Qty: 28 0RF Rx Instructions: Take 30 minutes before 2 meals daily insulin aspart U-100 [Novolog FlexPen U-100 Insulin] 100 unit/mL (3 mL) insulin pen 1 sliding scale dose SUBCUT TID Patient Comments: INJECT 5 Units under the skin with breakfast and 7 units with lunch and dinner omeprazole 20 mg capsule,delayed release(DR/EC) 20 mg PO DAILY cinnamon bark [Cinnamon] 500 mg capsule 1,000 mg PO DAILY cholecalciferol (vitamin D3) [Vitamin D3] 25 mcg (1,000 unit) capsule 100 mcg PO QHS acetaminophen 500 mg Tablet 1,000 mg PO TID PRN (Reason: pain) Rx Instructions: Do not take more than 3000 mg Tylenol in a 24-hour period. aspirin 81 mg Tablet,Chewable 81 mg PO DAILY Referrals / Follow Up: Mat Escalante MD [Primary Care Provider] - Within 1 Week Disposition Disposition (needs filled in before D/C Order can be placed): Home, Self Care Charges/Coding Visit Charges Inpatient E&M: 61150 Disch Hosp >30min
--- NOTE | 2024-11-13 11:21 | NEURO.CONS ---
Assessment and Plan: Neuro Assessment/Plan Jose SAMPSON is a 84 F being evaluated by Teleneurology for speech difficulty. MRI showed mild small vessel disease and mild-moderate atrophy but no stroke. Diagnosis: Plan: Transfer to [facility] for the following reasons: I personally attended this patient and spent a total time of minutes evaluating this patient including clinical assessment, review of chart, medical history imaging, and determining appropriate treatment and workup. HPI Consult Data Date of Consult: 11/13/24 HPI Narrative HPI Narrative: Jose SAMPSON, is a 84 F who presents [facility] Medical History Blindness of right eye Anemia Gastric reflux Chest pain Wears hearing aid Wears contact lenses Post-menopausal Anxiety History of steroid therapy Thyroid disease Insulin dependent diabetes mellitus Ambulates with cane Arthritis High cholesterol Migraine headache TIA (transient ischemic attack) Difficulty swallowing Dietary restriction History of diverticulitis Non-smoker History of stress test History of rheumatic fever Tardive dyskinesia Major depressive disorder GERD (gastroesophageal reflux disease) Hypertension Hx of emotional problems Home Medications ?Medication ?Instructions ?Recorded ?Last Taken ?Type atorvastatin 40 mg tablet 40 mg PO DAILY 02/28/22 Unknown History hydrochlorothiazide 12.5 mg tablet 12.5 mg PO DAILY BP 02/28/22 Unknown History timolol maleate 0.5 % eye drops 1 drp ophthalmic (eye) BID 02/28/22 Unknown History lisinopril 20 mg tablet 20 mg PO QDAY 07/10/23 Unknown History cholecalciferol (vitamin D3) 25 100 mcg PO QHS 12/08/23 Unknown History mcg (1,000 unit) capsule (Vitamin D3) cinnamon bark 500 mg capsule 1,000 mg PO DAILY 12/08/23 Unknown History (Cinnamon) omeprazole 20 mg capsule,delayed 20 mg PO DAILY 12/08/23 Unknown History release insulin aspart U-100 100 unit/mL 1 sliding scale dose subcut TID 05/31/24 Unknown History (3 mL) subcutaneous pen (Novolog FlexPen U-100 Insulin aspart) insulin glargine 100 unit/mL (3 24 unit subcut QHS 10/21/24 Unknown History mL) subcutaneous pen (Basaglar KwikPen U-100 Insulin) dicyclomine 20 mg tablet 20 mg PO BID #28 tabs 10/25/24 Unknown Rx deutetrabenazine 18 mg 18 mg PO QDAY #90 tabs 10/28/24 Unknown Rx tablet,extended release 24 hr (Austedo XR) escitalopram oxalate 10 mg tablet 10 mg PO DAILY #90 tabs 10/28/24 Unknown Rx mirtazapine 15 mg tablet 15 mg PO QHS #90 tabs 10/28/24 Unknown Rx acetaminophen 500 mg tablet 1,000 mg PO TID PRN pain 11/04/24 Unknown History aspirin 81 mg chewable tablet 81 mg PO DAILY 11/04/24 Unknown History Allergy/AdvReac Type Severity Reaction Status Date / Time codeine Allergy Rash Verified 11/12/24 12:15 morphine Allergy Rash Verified 11/12/24 12:15 Family History Sister Cancer Surgical History 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 Hx of left cataract extraction Hx of right cataract extraction History of esophagogastroduodenoscopy (EGD) Hx of colonoscopy History of carpal tunnel surgery of right wrist History of carpal tunnel surgery of left wrist History of knee replacement H/O repair of rotator cuff H/O: hysterectomy H/O thyroidectomy Social History Smoking Status: Never smoker alcohol intake: never substance use type: does not use Vital Signs Vital Signs Vital Signs: 11/12/24 12:16 11/12/24 13:19 11/12/24 13:30 Temperature 98.2 F Temperature Source Oral Pulse Rate 72 67 78 Pulse Strength Respiratory Rate 14 13 15 Respiratory Effort Respiratory Depth Respiratory Pattern Blood Pressure 166/64 H 186/75 H Blood Pressure Mean 98 108 Blood Pressure Source Blood Pressure Position Blood Pressure Location Pulse Ox 99 84 Oxygen Delivery Method Room Air 11/12/24 13:45 11/12/24 14:00 11/12/24 14:15 Temperature Temperature Source Pulse Rate 78 67 70 Pulse Strength Respiratory Rate 13 9 L 9 L Respiratory Effort Respiratory Depth Respiratory Pattern Blood Pressure 180/77 H 179/64 H 174/65 H Blood Pressure Mean 107 97 98 Blood Pressure Source Blood Pressure Position Blood Pressure Location Pulse Ox Oxygen Delivery Method 11/12/24 14:30 11/12/24 14:53 11/12/24 15:00 Temperature Temperature Source Pulse Rate 68 80 81 Pulse Strength Respiratory Rate 10 L 27 H 18 Respiratory Effort Respiratory Depth Respiratory Pattern Blood Pressure 152/98 H Blood Pressure Mean 111 Blood Pressure Source Blood Pressure Position Blood Pressure Location Pulse Ox 97 99 Oxygen Delivery Method 11/12/24 15:03 11/12/24 15:15 11/12/24 15:30 Temperature Temperature Source Pulse Rate 78 79 74 Pulse Strength Respiratory Rate 14 16 9 L Respiratory Effort Respiratory Depth Respiratory Pattern Blood Pressure 171/71 H 186/117 H 178/74 H Blood Pressure Mean 101 127 104 Blood Pressure Source Blood Pressure Position Blood Pressure Location Pulse Ox 100 99 98 Oxygen Delivery Method 11/12/24 15:45 11/12/24 15:46 11/12/24 16:00 Temperature Temperature Source Pulse Rate 108 H 83 84 Pulse Strength Respiratory Rate 22 H 19 H 12 Respiratory Effort Respiratory Depth Respiratory Pattern Blood Pressure 206/54 H Blood Pressure Mean 96 Blood Pressure Source Blood Pressure Position Blood Pressure Location Pulse Ox Oxygen Delivery Method 11/12/24 16:21 11/12/24 16:49 11/12/24 17:50 Temperature 97.9 F 98.1 F Temperature Source Temporal Pulse Rate 84 78 Pulse Strength Respiratory Rate 12 16 Respiratory Effort Respiratory Depth Respiratory Pattern Blood Pressure 146/126 H 168/72 H Blood Pressure Mean 132 104 Blood Pressure Source Monitor Blood Pressure Position Semi-Fowlers Blood Pressure Location Left Arm Pulse Ox 99 98 98 Oxygen Delivery Method Room Air Room Air 11/12/24 18:00 11/12/24 20:00 11/12/24 20:05 Temperature 98.0 F Temperature Source Oral Pulse Rate 75 Pulse Strength Normal (2+) Respiratory Rate 18 Respiratory Effort Normal Non-Labored Respiratory Depth Normal Respiratory Pattern Normal Blood Pressure 166/72 H Blood Pressure Mean 103 Blood Pressure Source Monitor Blood Pressure Position Semi-Fowlers Blood Pressure Location Left Arm Pulse Ox 99 Oxygen Delivery Method Room Air Room Air 11/12/24 20:12 11/13/24 00:15 11/13/24 03:10 Temperature 98.2 F 97.4 F L Temperature Source Oral Temporal Pulse Rate 83 75 Pulse Strength Respiratory Rate 16 16 Respiratory Effort Normal Non-Labored Respiratory Depth Normal Respiratory Pattern Normal Blood Pressure 166/59 H 173/72 H Blood Pressure Mean 94 105 Blood Pressure Source Monitor Monitor Blood Pressure Position Semi-Fowlers Semi-Fowlers Blood Pressure Location Left Arm Left Arm Pulse Ox 95 96 Oxygen Delivery Method Room Air Room Air Room Air 11/13/24 03:11 11/13/24 03:13 11/13/24 06:40 Temperature 97.7 F L Temperature Source Temporal Pulse Rate 75 88 Pulse Strength Respiratory Rate 14 Respiratory Effort Normal Non-Labored Respiratory Depth Normal Respiratory Pattern Normal Blood Pressure 173/72 H 154/54 H Blood Pressure Mean 87 Blood Pressure Source Monitor Blood Pressure Position Semi-Fowlers Blood Pressure Location Left Arm Pulse Ox 98 Oxygen Delivery Method Room Air Room Air 11/13/24 09:50 Temperature 99.3 F H Temperature Source Oral Pulse Rate 126 H Pulse Strength Respiratory Rate 20 H Respiratory Effort Respiratory Depth Respiratory Pattern Blood Pressure 157/60 H Blood Pressure Mean 92 Blood Pressure Source Monitor Blood Pressure Position Semi-Fowlers Blood Pressure Location Left Arm Pulse Ox 96 Oxygen Delivery Method Room Air Weight Weight: 66.6 kg Body Mass Index (BMI) 25.2 EEG Results Procedure Details EEG Procedure Details: Jose SAMPSON is a 84 year old F with a past medical history of , who presents for evaluation of Electroencephalogram on DATE at TIME Lab / Micro Data 11/13/24 06:48 11/13/24 06:48 Labs: Laboratory Results - last 24 hr 11/12/24 12:35: WBC 7.4, RBC 4.22, Hgb 12.2, Hct 36.8 L, MCV 87.2, MCH 28.9, MCHC 33.2, RDW Std Deviation 45.2 H, RDW Coeff of Dario 14.3, Plt Count 217, MPV 11.5, Immature Gran % (Auto) 0.100, Neut % (Auto) 66.3, Lymph % (Auto) 23.8, Towner % (Auto) 6.5, Eos % (Auto) 2.3, Baso % (Auto) 1.0, Absolute Neuts (auto) 4.9, Absolute Lymphs (auto) 1.75, Nucleated RBC % 0, Sodium 138, Potassium 4.1, Chloride 102, Carbon Dioxide 25.6, Anion Gap 11, BUN 7, Creatinine 0.67 L, Est GFR (MDRD) Non-Af 86, BUN/Creatinine Ratio 11.0, Glucose 214 H, Calcium 9.8, Total Bilirubin 0.63, AST 30, ALT 23, Alkaline Phosphatase 77, Troponin T High Sens 16 H, Total Protein 7.2, Albumin 4.4, Globulin 2.8, Albumin/Globulin Ratio 1.6 11/12/24 12:46: Ammonia 20.0 11/12/24 14:55: Urine Color Straw, Urine Clarity Clear, Urine pH 7.0, Ur Specific [place] 1.010, Urine Protein 15 H, Urine Glucose (UA) 50 H, Urine Ketones Negative, Urine Occult Blood Negative, Urine Nitrite Negative, Urine Bilirubin Negative, Urine Urobilinogen Normal, Ur Leukocyte Esterase Negative, Urine RBC 0 SEEN, Urine WBC 0-5 SEEN, Ur Squamous Epith Cells 0-5 SEEN, Urine Bacteria 0 SEEN, Urine Mucus 0 SEEN 11/12/24 15:01: Troponin T Hi Sens 2 Hr 14 11/12/24 17:08: Troponin T Hi Sens 4Hr 16 H 11/12/24 22:05: POC Glucose 233 H 11/13/24 03:10: POC Glucose 141 H 11/13/24 06:48: WBC 7.9, RBC 4.25, Hgb 12.1, Hct 36.6 L, MCV 86.1, MCH 28.5, MCHC 33.1, RDW Std Deviation 45.2 H, RDW Coeff of Dario 14.5, Plt Count 211, MPV 11.1, Immature Gran % (Auto) 0.300, Neut % (Auto) 55.8, Lymph % (Auto) 31.3, Towner % (Auto) 8.3, Eos % (Auto) 3.3, Baso % (Auto) 1.0, Absolute Neuts (auto) 4.4, Absolute Lymphs (auto) 2.46, Nucleated RBC % 0, Sodium 138, Potassium 3.9, Chloride 102, Carbon Dioxide 24.2, Anion Gap 12, BUN 7, Creatinine 0.60 L, Estim Creat Clear Calc 48.26 L, Est GFR (MDRD) Non-Af 88, BUN/Creatinine Ratio 10.9, Glucose 161 H, Calcium 9.8, Magnesium 1.8, Triglycerides 146, Cholesterol 126, LDL Cholesterol, Calc 47, VLDL Cholesterol 29, HDL Cholesterol 50, Cholesterol/HDL Ratio 2.54, TSH 2.280 11/13/24 06:51: POC Glucose 159 H Imaging Radiology Impression Brain CT 11/12/24 12:40 IMPRESSION: 1. No evidence of intracranial hemorrhage or acute ischemia. 2. Changes of chronic microvascular ischemia and volume loss. Reading Location: [id number] Chest X-Ray 11/12/24 12:41 IMPRESSION: NO ACUTE FINDINGS. Reading Location: [facility] Head/Neck CTA 11/12/24 15:41 IMPRESSION: No evidence of an acute cervical or intracranial large vessel arterial occlusion. - The right anteroinferior cerebellar artery origin could not be identified. This may represent technical artifact or occlusion of indeterminate acuity. Clinical correlation with symptoms. - There is atherosclerosis but no hemodynamically significant stenosis as discussed above. - Other findings discussed above in detail. Reading Location: [facility] Brain MRI 11/12/24 16:22 IMPRESSION: CEREBRAL ATROPHY WITH CHRONIC SMALL VESSEL ISCHEMIC DISEASE. OTHERWISE UNREMARKABLE BRAIN MRI WITHOUT CONTRAST. Reading Location: [id number] Active Medications Active Medications Active Medications: Current Medications Generic Name Dose Route Start Last Admin Trade Name Freq PRN Reason Stop Dose Admin Acetaminophen 650 mg 11/12/24 16:38 11/13/24 00:20 Acetaminophen 325 Mg Tablet PO 650 mg Q6H PRN PRN Administration Pain 1-10 Or Fever >100.7 Albuterol Sulfate 2.5 mg 11/12/24 16:38 Albuterol 2.5 Mg/3 Ml Vial.Neb. INHALATION Q2H PRN PRN SOB &/OR WHEEZING Aspirin 81 mg 11/13/24 08:00 Aspirin 81 Mg Tab.Chew PO BREAKFAST ALEJANDRA Atorvastatin Calcium 40 mg 11/12/24 22:00 11/12/24 22:09 Atorvastatin Calcium 40 Mg Tablet PO 40 mg QHS ALEJANDRA Administration Dicyclomine HCl 20 mg 11/13/24 07:00 11/13/24 06:52 Dicyclomine 10 Mg Capsule PO 20 mg BIDAC ALEJANDRA Administration Enoxaparin Sodium 40 mg 11/13/24 10:30 Enoxaparin 40 Mg/0.4 Ml Syringe SC DAILY ALEJANDRA Escitalopram Oxalate 10 mg 11/13/24 10:00 Escitalopram Oxalate 10 Mg Tablet PO DAILY ALEJANDRA Glucagon 1 mg 11/12/24 16:38 Glucagon 1 Mg/Ml Syringe IM X1 PRN HYPOGLYCEMIA Protocol Hydralazine HCl 10 mg 11/13/24 02:20 11/13/24 03:13 Hydralazine 20 Mg/Ml Vial IV 10 mg Q4H PRN PRN Administration SBP > 160 Protocol Hydrochlorothiazide 12.5 mg 11/13/24 10:00 Hydrochlorothiazide 12.5mg PO DAILY ALEJANDRA Protocol Dextrose 250 mls @ 0 mls/hr 11/12/24 16:38 Dextrose 10%-Water IV .Q0M PRN HYPOGLYCEMIA Protocol As Directed Insulin Glargine 20 unit 11/12/24 22:00 11/12/24 22:10 Insulin Glargine-Yfgn 100 Unit/Ml Pen SC 20 unit QHS ALEJANDRA Administration Insulin Human Lispro 0 unit 11/12/24 22:00 11/13/24 06:52 Insulin Lispro 100 Unit/Ml Insuln.Pen SC 1 units ACHS ALEJANDRA Administration Protocol Lisinopril 20 mg 11/13/24 10:00 Lisinopril 20 Mg Tablet PO DAILY [facility] Protocol Melatonin 10 mg 11/12/24 16:38 Melatonin 10 Mg Tablet PO QHS PRN PRN INSOMNIA Mirtazapine 15 mg 11/12/24 22:00 11/12/24 22:09 Mirtazapine 15 Mg Tablet PO 15 mg QHS ALEJANDRA Administration Non-Formulary Medication 18 mg 11/12/24 16:38 Deutetrabenazine [Austedo Xr] PO QDAY [facility] Pantoprazole Sodium 20 mg 11/13/24 10:00 Pantoprazole Sodium 20 Mg Tablet PO DAILY [facility] Senna/Docusate Sodium 2 tablet 11/12/24 16:38 Senna/Docusate Sodium 1 Tablet PO BID PRN PRN Constipation Sodium Chloride 10 - 40 ml 11/12/24 18:08 11/13/24 03:13 0.9% Saline Lock 10 Ml Syringe IV 10 ml UD PRN Administration SALINE FLUSH Timolol Maleate 1 drp 11/12/24 22:00 11/13/24 09:58 Timolol 0.5% 5ml Opth.Btl OPHTHALMIC 1 drp BID ALEJANDRA Administration NIHSS NIHSS Nursing Documentation NIHSS Nursing Documentation: NIHSS: Ischemic Stroke/TIA Start: 11/12/24 16:38 Text: For PCU Patients: NIH and Neuro Check every 4 Status: Complete hours, PRN and with change in RN caregiver. Freq: [id number] Protocol: Activity Type Activity Date Activity User E-sign Co-sign Detail Recorded Client Recorded Date Recorded By Document 11/13/24 00:15 MG [id number] 11/13/24 00:19 MG 11/13/24 00:15 NIH Stroke Scale [NIHSS] A score of 0 is normal or asymptomatic . Total possible score is 42. Inpatient: RN or Physician to activate a stroke alert for onset of new stroke symptoms or with NIHSS increase >/= 3 points. Following change in neurological status, NIHSS will be performed per physician order or more frequently PRN. -1a. Level of Consciousness 0 - Alert; keenly responsive -1b. LOC Questions 0 - Answers BOTH questions correctly -1c. LOC Commands 0 - Performs BOTH tasks correctly -2. Best Gaze 0 - Normal -3. Visual 1 - Partial hemianopia -4. Facial Palsy 0 - Normal symmetrical movements -5a. Left Arm 0 - No drift; arm holds 90 ( or 45) degrees for full 10 seconds -5b. Right Arm 0 - No drift; arm holds 90 ( or 45) degrees for full 10 seconds -6a. Left Leg 0 - No drift; leg holds 30- degree position for full 5 seconds -6b. Right Leg 0 - No drift; leg holds 30- degree position for full 5 seconds -7. Limb Ataxia 0 - Absent -8. Sensory 0 - Normal; no sensory loss -9. Best Language 0 - No aphasia; normal -10. Dysarthria 1 = Mild-to- moderate dysarthria; -11. Extinction and Inattention 0 - No abnormality -Total 2 Query Text:A score of 0 is normal or asymptomatic. Total possible score is 42 . ED: Notify Physician for NIHSS increase by > / = 3 points. Inpatient: RN or Physician to activate a stroke alert for NIHSS increase of > / = 3 points. Coma Scale [Assess] -Eye Opening Spontaneous -Motor Obeys Commands -Verbal Oriented [Total] -Coma Scale Total 15
--- NOTE | 2024-11-13 11:36 | CASEMGMT ---
Social Work PHQ-9 not completed as pt did not have a stroke. KEYONA Marlow
[2024-11-13] MEDS: 0.9% Normal Saline (1000mL) 1,000 ML 150 ML IV ×2 (13:26→19:50)
--- NOTE | 2024-11-13 14:29 | CASEMGMT ---
Addendum entered by Ugo Hercules 11/13/24 16:09: Covering weekend UM Staff notified Dr Odonnell ordered status change. Addendum entered by Ugo Hercules 11/13/24 14:48: Hospitalist confirms that the pt will be here through the weekend and that the pt will be switching to inpt. See SW note. This RN CM provided the pt and the pt's with the list of SNF's and HHC Agencies for review. Pt and pt's thank this administrative underwriter and deny further questions or concerns at this time. CM to follow. Original Note: See previous CM note. The pt's original plan was to DC home and denies HHC. Please see PT and ST notes. EYAL CM to the pt's room at this time. Pt's is at bedside who states that the pt is unsafe to return home in her current condition. states that the pt will be here through the weekend. At this time, the pt and pt are unsure of what they need or want at the time of DC. Pt's reports that he wishes to continue to follow the pt's progression in the hospital prior to solidifying DC plans. Follow for HH, OP Tx, vs SNF. Pt denies further questions or concerns at this time.
--- NOTE | 2024-11-13 14:44 | CASEMGMT ---
Social Work SW created in [facility] a list for HHC and SNF, of facilities and agencies in network w/pt's insurance, in pt's preferred geographic area, and complete w/quality and resource use data. KEYONA Marlow
[2024-11-13] MEDS: Insulin Glargine-YFGN 100 UNIT/ML Pen 20 UNIT SC (20:58)
[2024-11-13] MEDS: DEUTETRABENAZINE PO (21:00)
[2024-11-14] VITALS (7 sets, daily range): BP systolic 138–176; BP diastolic 55–63; PULSE 70–95; RESP 14–16; TEMP 36.1–37; O2SAT 94–99; BMI 25.2
--- NOTE | 2024-11-14 08:10 | PN.HOSP_ITS ---
Reason for Visit Chief Complaint: Difficulty speaking Subjective Subjective Patient was admitted with intermittent aphasia. Acute CVA was ruled out. Plan was for patient to be discharged the day prior however she was found to be physically deconditioned and necessitating her discharge being canceled. Consult placed to case management with plans for patient to be discharged to a senior care facility Objective Data Objective Data Vital Signs: Vital Signs Temp Pulse Resp BP Pulse Ox O2 Del Method 98.1 F 84 16 149/59 H 99 Room Air 11/14/24 06:10 11/14/24 06:10 11/14/24 06:10 11/14/24 06:10 11/14/24 06:10 11/14/24 06:10 Oxygen Delivery Method Room Air Weight: 66.6 kg Body Mass Index (BMI) 25.2 Intake & Output: Intake and Output for Last 24 Hours 11/12/24 11/13/24 11/14/24 23:59 23:59 23:59 Intake Total 400 / 400 1467.5 / 1467.5 1100 / 1100 Balance 400 / 400 1467.5 / 1467.5 1100 / 1100 Lab / Micro Data 11/13/24 06:48 11/13/24 06:48 Labs: Laboratory Results - last 24 hr 11/13/24 12:34: POC Glucose 233 H 11/13/24 17:14: POC Glucose 170 H 11/13/24 20:53: POC Glucose 147 H 11/14/24 06:12: POC Glucose 123 H Radiography Diagnostic Testing: Radiology Impression Echocardiogram 11/12/24 16:22 Interpretation Summary Left ventricular systolic function is hyperdynamic. The estimated ejection fraction is 75 %. Ordering Physician: Carmel Weston Referring Physician: Mat Escalante Performed By: Ghazal Alvarado, SUSAN, RVT Physical Exam Narrative GENERAL: cooperative HEENT: Atraumatic; normocephalic EYES; Anicteric, Normal Conjunctiva NECK; supple, normal thyroid, RESPIRATORY: Diminished to auscultation CARDIOVASCULAR: Regular S1 S2, GI: soft, normoactive bowel sounds, : No Renal angle tenderness; EXTREMITIES: No edema, no clubbing, MUSCULOSKELETAL: no muscle wasting NEURO: Awake; no lateralizing signs. SKIN: No Rash PSYCH; Flat affect Assessment & Plan Assessment/Plan (1) Expressive aphasia: PLAN: Plan Patient is an 84-year-old lady who was admitted with expressive receptive aphasia admitted to monitored bed for workup of suspected stroke 1. Expressive and receptive aphasia?CVA ruled out ? Patient was deemed not a candidate for TNK on admission admitted to monitored bed as part of her management ordered 2D echo, neurochecks every 4 hours and MRI. MRI demonstrated cerebral atrophy with chronic small vessel ischemic disease otherwise unremarkable brain without contrast. Did administer 0.5 mg of IV lorazepam for possible anxiety ? 11/14/2024 Plan was for patient to be discharged the day prior however she was found to be physically deconditioned and necessitating her discharge being canceled. Consult placed to case management with plans for patient to be discharged to a senior care facility 2. Diabetes mellitus type II -patient's oral hypoglycemics held. Placed on long acting insulin, Accu-Cheks a.c. and at bedtime and covered with sliding scale insulin 3. Hypertension ? Blood pressure control not optimal did continue home meds with plans to adjust doses as needed 4. Depression with anxiety ? May be contributing to patient's symptoms. Patient is on escitalopram did continue 5. GERD ? On PPI 6. Cholelithiasis ? Patient apparently has cholecystectomy planned for the coming week 7. DVT prophylaxis ? Subcu Lovenox Time spent in the patient's overall evaluation,decision-making process, review of diagnostic data, adjustment of management, discussion with other providers, nursing nursing and ancillary staff involved in patient's care documentation, 35 Minutes Charges/Coding Visit Charges Inpatient E&M: 96575 Subs Hosp L2 NIHSS NIHSS Nursing Documentation NIHSS Nursing Documentation: NIHSS: Ischemic Stroke/TIA Start: 11/12/24 16:38 Text: For PCU Patients: NIH and Neuro Check every 4 Status: Complete hours, PRN and with change in RN caregiver. Freq: [id number] Protocol: Activity Type Activity Date Activity User E-sign Co-sign Detail Recorded Client Recorded Date Recorded By Document 11/13/24 00:15 MG [id number] 11/13/24 00:19 MG 11/13/24 00:15 NIH Stroke Scale [NIHSS] A score of 0 is normal or asymptomatic . Total possible score is 42. Inpatient: RN or Physician to activate a stroke alert for onset of new stroke symptoms or with NIHSS increase >/= 3 points. Following change in neurological status, NIHSS will be performed per physician order or more frequently PRN. -1a. Level of Consciousness 0 - Alert; keenly responsive -1b. LOC Questions 0 - Answers BOTH questions correctly -1c. LOC Commands 0 - Performs BOTH tasks correctly -2. Best Gaze 0 - Normal -3. Visual 1 - Partial hemianopia -4. Facial Palsy 0 - Normal symmetrical movements -5a. Left Arm 0 - No drift; arm holds 90 ( or 45) degrees for full 10 seconds -5b. Right Arm 0 - No drift; arm holds 90 ( or 45) degrees for full 10 seconds -6a. Left Leg 0 - No drift; leg holds 30- degree position for full 5 seconds -6b. Right Leg 0 - No drift; leg holds 30- degree position for full 5 seconds -7. Limb Ataxia 0 - Absent -8. Sensory 0 - Normal; no sensory loss -9. Best Language 0 - No aphasia; normal -10. Dysarthria 1 = Mild-to- moderate dysarthria; -11. Extinction and Inattention 0 - No abnormality -Total 2 Query Text:A score of 0 is normal or asymptomatic. Total possible score is 42 . ED: Notify Physician for NIHSS increase by > / = 3 points. Inpatient: RN or Physician to activate a stroke alert for NIHSS increase of > / = 3 points. Coma Scale [Assess] -Eye Opening Spontaneous -Motor Obeys Commands -Verbal Oriented [Total] -Coma Scale Total 15
[2024-11-14] MEDS: Timolol 0.5% 5ML OPTH.BTL 1 DRP OPHTHALMIC ×2 (10:36→22:06)
[2024-11-14] MEDS: 0.9% Saline Lock 10 ML Syringe IV (10:44)
[2024-11-14] MEDS: Insulin Glargine-YFGN 100 UNIT/ML Pen 20 UNIT SC (22:06)
[2024-11-15 04:07] VITALS: BP 158/64; PULSE 80; RESP 18; TEMP 36.7; O2SAT 97
[2024-11-15 09:42] VITALS: BP 129/54; PULSE 80; RESP 16; TEMP 36.8; O2SAT 95
[2024-11-15] MEDS: DEUTETRABENAZINE PO (09:44)
[2024-11-15] MEDS: Timolol 0.5% 5ML OPTH.BTL 1 DRP OPHTHALMIC (09:45)
--- NOTE | 2024-11-15 10:18 | CASEMGMT ---
Social Work SWs Richa and Maliha met w/pt in room, pt having difficulty with word finding and answering SW questions. SW called , he is on his way into the hospital. When arrived, SWs Maliha and Richa spoke w/ in the room in regard to discharge planning. had chosen 1. TCU or 2 or 3. [facility] or [place]. SW explained to that pt's SNF stay will not be covered by Medicare as pt is still observation status. SW did educate pt and to the rehab level of care. SW provided to a list from [facility] of acute rehab facilities in network w/insurance, in pt's preferred geographic area and complete w/quality and resource use data. Pt's would like a referral to [facility] inpt rehab. SW explained will make the referral and let he and pt know. SW made referral to inpt rehab, await response. KEYONA Marlow
--- NOTE | 2024-11-15 11:58 | CASEMGMT ---
Met with patient and pt's to review DAMIAN form. DAMIAN form and its content were verbally explained and patient?s questions were answered to the best of my ability. Patient and pt's report understanding and pt's signed DAMIAN form. Patient provided a copy of signed DAMIAN form and original placed in patient?s chart. Patient had no further questions or concerns.
--- NOTE | 2024-11-15 12:55 | CASEMGMT ---
Addendum entered by Maliha Zabala 11/15/24 13:56: Social Work [facility] asked for additional information, information sent. KEYONA Marlow Original Note: Social Work [facility] inpt rehab did not accept pt. SW spoke w/pt and again, explained that our rehab did not take pt. SW inquired what they would want to do, go home w/[facility], make a referral to another inpt rehab, or private pay vs apply for Medicaid for SNF. Pt's would like a referral to [facility] in [facility]. SW explained will make the referral and let them know. states understanding. SW sent referral to [facility] via [facility], will awaiting response. KEYONA Marlow
[2024-11-15 13:02] VITALS: BMI 25.2
--- NOTE | 2024-11-15 15:04 | PCM.PN.HOSP ---
Subjective Subjective Doing well, no issues overnight. Objective Data Objective Data Vital Signs: Vital Signs Temp Pulse Resp BP Pulse Ox O2 Del Method 98.3 F 80 16 129/54 H 95 Room Air 11/15/24 09:42 11/15/24 09:42 11/15/24 09:42 11/15/24 09:42 11/15/24 09:42 11/15/24 09:42 Oxygen Delivery Method Room Air Weight: 146 lb 13.246 oz Body Mass Index (BMI) 25.2 Intake & Output: Intake and Output for Last 24 Hours 11/14/24 11/15/24 11/16/24 03:59 03:59 03:59 Intake Total 2467.5 / 2467.5 220 / 220 120 / 120 Balance 2467.5 / 2467.5 220 / 220 120 / 120 Lab / Micro Data 11/13/24 06:48 11/13/24 06:48 Labs: Laboratory Results - last 24 hr 11/14/24 17:00: POC Glucose 142 H 11/14/24 22:04: POC Glucose 174 H 11/15/24 06:19: POC Glucose 76 11/15/24 12:39: POC Glucose 249 H Physical Exam Narrative General: Alert, Oriented x3, Cooperative, No apparent distress HEENT: Atraumatic, PERRLA, EOMI, Normocephalic Oral: Moist Mucosa Neck: Supple, No JVD Lungs: Clear to auscultation, Normal air movement, No rhonchi, No wheeze, No rales Cardiovascular: Regular rate, Regular Rhythm, Normal S1, Normal S2, No murmurs Abdomen: Soft, Non Tender, Non-Distended, No Hepato-splenomegaly Extremities: No edema, Capillary Refill Less than 3 Seconds Skin: No rashes, No breakdown Musculoskeletal: No Tenderness to Palpation of Joints or Extremities Neurological: Continues to have some slurred speech/aphasia Psych/Mental Status: Flat Assessment & Plan Assessment/Plan (1) Expressive aphasia: PLAN: Plan 1. CVA/debility with inability to complete ADLs ? Based on her clinical presentation and continued aphasia she likely had a small CVA that is absent on the MRI. ? Continue with PT/OT as well as speech therapy ? Modified barium swallow is pending today 2. Essential HTN/HLD ? Continue with her home blood pressure medications ? Will monitor and make adjustments as necessary ? Continue with her statin which is appropriately dosed for her CVA as well as her aspirin 3. DM2 ? Accu-Cheks ? Sliding scale insulin ? Will monitor and make adjustments as necessary 4. GERD ? Stable ? Continue with her home medications 4. Depression with anxiety ? May be contributing to patient's symptoms. Patient is on escitalopram did continue 5. GERD ? On PPI 6. Cholelithiasis ? Patient apparently has cholecystectomy planned for the coming week 7. DVT prophylaxis ? Subcu Lovenox Time spent in the patient's overall evaluation,decision-making process, review of diagnostic data, adjustment of management, discussion with other providers, nursing nursing and ancillary staff involved in patient's care documentation, 35 Minutes NIHSS NIHSS Nursing Documentation NIHSS Nursing Documentation: NIHSS: Ischemic Stroke/TIA Start: 11/12/24 16:38 Text: For PCU Patients: NIH and Neuro Check every 4 Status: Complete hours, PRN and with change in RN caregiver. Freq: [id number] Protocol: Activity Type Activity Date Activity User E-sign Co-sign Detail Recorded Client Recorded Date Recorded By Document 11/13/24 00:15 MG [id number] 11/13/24 00:19 MG 11/13/24 00:15 NIH Stroke Scale [NIHSS] A score of 0 is normal or asymptomatic . Total possible score is 42. Inpatient: RN or Physician to activate a stroke alert for onset of new stroke symptoms or with NIHSS increase >/= 3 points. Following change in neurological status, NIHSS will be performed per physician order or more frequently PRN. -1a. Level of Consciousness 0 - Alert; keenly responsive -1b. LOC Questions 0 - Answers BOTH questions correctly -1c. LOC Commands 0 - Performs BOTH tasks correctly -2. Best Gaze 0 - Normal -3. Visual 1 - Partial hemianopia -4. Facial Palsy 0 - Normal symmetrical movements -5a. Left Arm 0 - No drift; arm holds 90 ( or 45) degrees for full 10 seconds -5b. Right Arm 0 - No drift; arm holds 90 ( or 45) degrees for full 10 seconds -6a. Left Leg 0 - No drift; leg holds 30- degree position for full 5 seconds -6b. Right Leg 0 - No drift; leg holds 30- degree position for full 5 seconds -7. Limb Ataxia 0 - Absent -8. Sensory 0 - Normal; no sensory loss -9. Best Language 0 - No aphasia; normal -10. Dysarthria 1 = Mild-to- moderate dysarthria; -11. Extinction and Inattention 0 - No abnormality -Total 2 Query Text:A score of 0 is normal or asymptomatic. Total possible score is 42 . ED: Notify Physician for NIHSS increase by > / = 3 points. Inpatient: RN or Physician to activate a stroke alert for NIHSS increase of > / = 3 points. Coma Scale [Assess] -Eye Opening Spontaneous -Motor Obeys Commands -Verbal Oriented [Total] -Coma Scale Total 15
--- NOTE | 2024-11-15 15:06 | CASEMGMT ---
EYAL CHASE updated by SW that patient is scheduled for cholecystectomy on 11/18/24. EYAL CHASE in to discuss with at bedside. Per , patient is to have surgery with Dr. Sultana but has not had a chance to call office to updated regarding currently hospitalization. EYAL CHASE called Dr. Sultana's office and spoke with Dr. Sultana and updated to current hospitalization and plan for patient to go to Acute Rehab for additional therapy. Per Dr. Sultana, she will cancel the surgery and will have patient follow-up in the office after she has completed Acute Rehab. EYAL CHASE updated SW. EYAL CHASE updated and patient, voiced understanding and appreciations. EYAL CHASE updated hospitalist.
--- NOTE | 2024-11-15 15:25 | SP.MBSS_ITS ---
Modified Barium Swallow Patient Information Study Date: 11/15/24 Study Time: 13:30 Direct Billable Minutes: 120 Total Minutes procedure & reportin Diagnosis: G24.01 - Drug induced subacute dyskinesia Referring Physician: Sylvain Salamanca Reason for Referral: Palak Piedra is an 84-year-old female with PMH significant for HTN, GERD, insulin- dependent diabetes, thyroid disease, arthritis, hyperlipidemia, anemia, migraine, prior TIA, tardive dyskinesia, depression, anxiety, right eye blindness, and history of diverticulitis. She presented to [facility] ED on 11/12/24 with a 4-day history of expressive and receptive aphasia, intermittent confusion, and gait disturbance, worsening on day of admission. CT head and CXR were negative for acute process; labs notable for glucose 213, otherwise unremarkable. Patient denies headache, new vision changes, chest pain, SOB, or focal numbness/weakness. Given ongoing aphasia and debility impacting ADLs, physician notes concern for a small CVA not visualized on MRI. Plan includes PT/OT, speech therapy, and MBSS to further assess swallow function given s/s of aspiration at bedside. Current Diet Ordered: Minced & Moist (IDDSI Level 5) / Thin Liquids Mental Status: Impaired Respiratory Status: Oxygenating on Room Air Penetration-Aspiration Scale Penetration-Aspiration Scale: OBJECTIVE ASSESSMENT OF SWALLOW FUNCTION (QUANTITATIVE ? PER TRIAL): PENETRATION / ASPIRATION SCALE (CHEN): 1 = does not enter airway 2 = enters airway/above vocal folds/ejected 3 = enters airway/above vocal folds/not ejected 4 = enters airway/contacts vocal folds/ejected 5 = enters airway/contacts vocal folds/not ejected 6 = enters airway/below vocal folds/ejected 7 = enters airway/below vocal folds/not ejected despite effort 8 = enters airway/below vocal folds/no effort VIDEOFLOROSCOPIC SCALE SCORE (CHEN): Grade I = aspiration of material that has penetrated into the laryngeal vestibule, intact cough reflex Grade II = aspiration < 10 % of the bolus, intact cough reflex Grade III = aspiration of < 10 % of the bolus, reduced cough reflex or aspiration of > 10 % of the bolus, intact cough reflex Grade IV = aspiration of > 10 % of the bolus, reduced cough reflex Penetration-Aspiration Scale Score Thin Liquid via teaspoon: Result: 1= does not enter airway Thin Liquid via teaspoon Trial 2: Result: 3= enters airways/above vocal folds/not ejected Thin Liquid via small single sip: cup: Result: 3= enters airways/above vocal folds/not ejected Thin Liquid via small single sip: cup Trial 2: Result: 3= enters airways/above vocal folds/not ejected Thin Liquid via small single sip: cup Effortful swallow: Result: 2= enter airway/above vocal folds/ejected Pudding: Result: 1= does not enter airway Cookie: Result: 1= does not enter airway Thin Liquid via small single sip: cup Trial 3: Result: 3= enters airways/above vocal folds/not ejected Thin Liquid via single sip: straw: Result: 2= enter airway/above vocal folds/ejected Thin Liquid via sequential sips:straw: Result: 3= enters airways/above vocal folds/not ejected [place] Thick Liquid via small single sip: cup: Result: 3= enters airways/above vocal folds/not ejected [place] Thick Liquid via small single sip: cup: Result: 1= does not enter airway Barium Tablet: Result: 1= does not enter airway Oral Phase Labial Seal: No Labial Escape Tongue Control During Bolus Hold: Cohesive bolus between tongue to palatal seal Bolus Preparation/Mastication: Slow prolonged chewing/mashing with complete recollection Bolus Transport/Lingual Motion: Slowed tongue motion Oral Residue: Residue collection on oral structures Pharyngeal Phase Initiation of Pharyngeal Swallow: Bolus head in pyriforms Soft Palate Elevation: No bolus between soft palate and pharyngeal wall Laryngeal Elevation: Partial superior movement thyroid cart/partial apprx aryt- epig petiole Anterior Hyoid Excursion: Complete anterior movement Epiglottic Movement: Partial inversion Laryngeal Vestibule Closure at Height of Swallow: Incomplete; narrow column of air/contrast in laryngeal vestibule Pharyngeal Stripping Wave: Present - diminished Pharyngoesophageal Segment Opening: Parital distension and partial duration; parital obstruction of flow Tongue Base Retraction: Trace column of contrast between tongue base & post. pharyngeal wall Pharyngeal Residue: Collection of residue within or on pharyngeal structures Esophageal Phase Esophageal Clearance: Esophageal retention w/ retrograde flow below pharyngoesophageal seg. Diagnosis/Impression Diagnosis: MILD OROPHARYNGEAL DYSPHAGIA R13.12 .: Patient presents with oropharyngeal dysphagia characterized by reduced airway closure from decreased laryngeal elevation and epiglottic inversion, resulting in consistent laryngeal penetration not fully cleared. No aspiration was observed, and patient demonstrated effective airway protection with a strong cough; intermittent cough and re-swallow are recommended. Oral phase marked by prolonged mastication, multiple swallows to clear, and oral residue spilling into the vallecula. Minimal residue in the vallecula and pyriforms, partially cleared with compensatory strategies (double swallow/liquid wash). With pudding and cookie, retention was noted in the upper to mid esophagus, effectively cleared with liquid wash. Partial UES opening with pyriform sinus retention was observed, likely related to decreased pharyngeal stripping wave. Respiratory standards were met with no concern for aspiration pneumonia. Recommend continuation of minced and moist textures with thin liquids, as reports improved tolerance compared to soft/bite-sized textures. Speech therapy will continue to follow. Recommendations Diet: Minced and Moist Textures and Thin Liquids Compensatory Strategies: Small Bites, Small Sips, Slow Rate, Feed only when alert, Multiple Swallows, Alternate bites/solids and sips/liquids, Sitting upright and Remain sitting upright for 30 minutes after PO intake Recommend Repeat Modified Barium Swallow: TBD Need for Skilled Speech Therapy Services: Yes Recommended Referrals: GI Consult Education Completed: 1. Described result of evaluation., 2. Pt understands evaluation & agrees with goals and treatment plan. and 4. Family/caregivers understand evaluation & agree w/ goals & tx plan. Status Active ST Patient: Active Contact Information [facility] Speech Therapy:: Carolee Jimenez M.A., [facility] [employer]NAL REPAIRER Speech-Language Pathologist [facility] [phone] FAX [phone] [email or web address] [address] [place] [address] ?[place] [address]
--- NOTE | 2024-11-15 15:52 | DCINST_ITS ---
Discharge Instructions DC O2, CPAP, BIPAP needs Home O2 Discharge instructions: No Dressing / Incision Discharge Activity: Return to Normal Activity Dressing / Incision Call your doctor if you observe: Fever of 101 or Higher, Shortness of breath, Dizziness, Fainting spells, Swelling in the ankles, Chest pain and Increased palpitations (irregular heartbeat) Follow Up Care Test Results: Test results from this visit will be discussed in further detail at your follow- up appointment, if applicable. Discharge Plan Admission Admit Date/Time: 11/12/24 16:11 Attending Provider: Sylvain Salamanca Primary Care Provider: Mat Escalante Consulting Providers: Carmel Weston; Rajeev Odonnell Instructions Additional Instructions / Restrictions: Follow-up with neurology as an outpatient for your continued aphasia. For cholecystectomy will need to be rescheduled so I recommend following up with Dr. Sultana as an outpatient as well. Discharge Orders/Prescriptions Prescriptions: Continued hydrochlorothiazide 12.5 mg tablet 12.5 mg PO DAILY Patient Comments: Take 1 tablet by mouth daily atorvastatin 40 mg tablet 40 mg PO DAILY Patient Comments: TAKE 1 TABLET DAILY timolol maleate 0.5 % drops 1 drp ophthalmic (eye) BID Patient Comments: 1 drop in right eye daily lisinopril 20 mg tablet 20 mg PO QDAY Austedo XR 18 mg tablet extended release 24 hr 18 mg PO QDAY Qty: 90 1RF escitalopram oxalate 10 mg tablet 10 mg PO DAILY Qty: 90 1RF mirtazapine 15 mg tablet 15 mg PO QHS Qty: 90 1RF insulin glargine [Basaglar KwikPen U-100 Insulin] 100 unit/mL (3 mL) insulin pen 24 unit subcut QHS dicyclomine 20 mg tablet 20 mg PO BID Qty: 28 0RF Rx Instructions: Take 30 minutes before 2 meals daily insulin aspart U-100 [Novolog FlexPen U-100 Insulin] 100 unit/mL (3 mL) insulin pen 1 sliding scale dose SUBCUT TID Patient Comments: INJECT 5 Units under the skin with breakfast and 7 units with lunch and dinner omeprazole 20 mg capsule,delayed release(DR/EC) 20 mg PO DAILY cinnamon bark [Cinnamon] 500 mg capsule 1,000 mg PO DAILY cholecalciferol (vitamin D3) [Vitamin D3] 25 mcg (1,000 unit) capsule 100 mcg PO QHS acetaminophen 500 mg Tablet 1,000 mg PO TID PRN (Reason: pain) Rx Instructions: Do not take more than 3000 mg Tylenol in a 24-hour period. aspirin 81 mg Tablet,Chewable 81 mg PO DAILY Referrals / Follow Up: Mat Escalante MD [Primary Care Provider] - Within 1 Week Disposition Disposition (needs filled in before D/C Order can be placed): Inpatient Rehab Unit/Facility
--- NOTE | 2024-11-15 15:58 | DS.PCM_ITS ---
Providers Date of Admission: 11/12/24 Primary Care Physician: Dr. Mat Escalante MD Reason For Visit: CVA RULE OUT Diagnosis Discharge Diagnosis (1) Expressive aphasia: Status: Acute Code(s): R47.01 - Aphasia Medications at Discharge Home Medications atorvastatin 40 mg tablet 40 mg PO DAILY 02/28/22 hydrochlorothiazide 12.5 mg tablet 12.5 mg PO DAILY BP 02/28/22 timolol maleate 0.5 % eye drops 1 drp ophthalmic (eye) BID 02/28/22 lisinopril 20 mg tablet 20 mg PO QDAY 07/10/23 cholecalciferol (vitamin D3) 25 mcg (1,000 unit) capsule (Vitamin D3) 100 mcg PO QHS 12/08/23 cinnamon bark 500 mg capsule (Cinnamon) 1,000 mg PO DAILY 12/08/23 omeprazole 20 mg capsule,delayed release 20 mg PO DAILY 12/08/23 insulin aspart U-100 100 unit/mL (3 mL) subcutaneous pen (Novolog FlexPen U-100 Insulin aspart) 1 sliding scale dose subcut TID 05/31/24 insulin glargine 100 unit/mL (3 mL) subcutaneous pen (Basaglar KwikPen U-100 Insulin) 24 unit subcut QHS 10/21/24 dicyclomine 20 mg tablet 20 mg PO BID #28 tabs 10/25/24 deutetrabenazine 18 mg tablet,extended release 24 hr (Austedo XR) 18 mg PO QDAY #90 tabs 10/28/24 escitalopram oxalate 10 mg tablet 10 mg PO DAILY #90 tabs 10/28/24 mirtazapine 15 mg tablet 15 mg PO QHS #90 tabs 10/28/24 acetaminophen 500 mg tablet 1,000 mg PO TID PRN pain 11/04/24 aspirin 81 mg chewable tablet 81 mg PO DAILY 11/04/24 Hospital Course Operations None Procedures 2-D Echocardiogram Summary of Care Provided Minutes Spent on Discharge: 34 Hospital Course: Per HPI: Jose SAMPSON, is a 84-year-old female history of hypertension, GERD, diabetes, depression who presented [facility] ED 11/12/2024 with difficulty speaking and possibly some confusion for the past 4 days. Symptoms have been persistent and started Friday evening. Saw PCP today and was noted to have some confusion and difficulty speaking as well as some difficulty walking so she was referred to the ED for possible stroke. In the ED temp 98.2, heart rate 72 and blood pressure 166/64, respiratory rate 14 pulse ox 99% on room air. CBC with white count of 7.4 and hemoglobin 12.2, ammonia 20, CMP BUN of 7 creatinine 0.67 and glucose 213, troponin 16 with a repeat of 14, CT head no acute process, chest x-ray no acute process, UA not suggestive of UTI. Given patient's expressive aphasia and possible receptive aphasia with difficulty walking hospitalist contacted to admit patient for stroke rule out. Patient evaluated at bedside. Reportedly symptoms mostly were noticeable starting Friday in the morning and included difficulty speaking and walking with some possible occasional confusion that did remain the same until today when all of these things worsened. 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 Denies any focal numbness, weakness, tingling. Hospital Course: 1. CVA?84-year-old female presented to the hospital with aphasia. There is initial concern for stroke however the MRI was negative on imaging. Given that stroke is a clinical diagnosis and the fact that her expressive aphasia has continued throughout her admission I feel that she likely had a stroke regardless of imaging. She is already on aspirin and Lipitor given her age I do not feel that there is any further workup to be done however she may benefit from outpatient neurology evaluation once she completes her rehab. I discussed with her and the family the plan for discharge today to the rehab unit and they expressed understanding of the risks and benefits of going to the rehab unit and would like to go today. Echocardiogram with an EF of 75%. 2. Cholelithiasis?she had been seeing general surgery as an outpatient for right upper quadrant abdominal pain after eating. Plan was for surgery on however given her hospitalization and her need for therapy surgery was been canceled. When she completes her rehab stay then I recommend outpatient follow-up with her general surgeon to reschedule surgery if necessary. 2. Essential hypertension, type 2 diabetes, depression, anxiety, GERD are all chronic medical conditions which complicate her care. Her home medications were continued where appropriate Weight / BMI Weight Weight: 146 lb 13.246 oz Body Mass Index (BMI) 25.2 ABG / Lab / Microbiology Data 11/13/24 06:48 11/13/24 06:48 Laboratory: Laboratory Results - last 24 hr 11/14/24 17:00: POC Glucose 142 H 11/14/24 22:04: POC Glucose 174 H 11/15/24 06:19: POC Glucose 76 11/15/24 12:39: POC Glucose 249 H D/C Instructions Call your doctor if you observe: Fever of 101 or Higher, Shortness of breath, Dizziness, Fainting spells, Swelling in the ankles, Chest pain and Increased palpitations (irregular heartbeat) DC O2, CPAP, BIPAP Needs Home O2 Discharge instructions: No Meaningful Use Info Meaningful Use Meaningful Use Diagnoses (Choose all that apply): None applicable Discharge Plan Admission Admit Date/Time: 11/12/24 16:11 Attending Provider: Sylvain Salamanca Primary Care Provider: Mat Escalante Consulting Providers: Carmel Weston; Rajeev Odonnell Instructions Additional Instructions / Restrictions: Follow-up with neurology as an outpatient for your continued aphasia. For cholecystectomy will need to be rescheduled so I recommend following up with Dr. Sultana as an outpatient as well. Discharge Orders/Prescriptions Prescriptions: Continued hydrochlorothiazide 12.5 mg tablet 12.5 mg PO DAILY Patient Comments: Take 1 tablet by mouth daily atorvastatin 40 mg tablet 40 mg PO DAILY Patient Comments: TAKE 1 TABLET DAILY timolol maleate 0.5 % drops 1 drp ophthalmic (eye) BID Patient Comments: 1 drop in right eye daily lisinopril 20 mg tablet 20 mg PO QDAY Austedo XR 18 mg tablet extended release 24 hr 18 mg PO QDAY Qty: 90 1RF escitalopram oxalate 10 mg tablet 10 mg PO DAILY Qty: 90 1RF mirtazapine 15 mg tablet 15 mg PO QHS Qty: 90 1RF insulin glargine [Basaglar KwikPen U-100 Insulin] 100 unit/mL (3 mL) insulin pen 24 unit subcut QHS dicyclomine 20 mg tablet 20 mg PO BID Qty: 28 0RF Rx Instructions: Take 30 minutes before 2 meals daily insulin aspart U-100 [Novolog FlexPen U-100 Insulin] 100 unit/mL (3 mL) insulin pen 1 sliding scale dose SUBCUT TID Patient Comments: INJECT 5 Units under the skin with breakfast and 7 units with lunch and dinner omeprazole 20 mg capsule,delayed release(DR/EC) 20 mg PO DAILY cinnamon bark [Cinnamon] 500 mg capsule 1,000 mg PO DAILY cholecalciferol (vitamin D3) [Vitamin D3] 25 mcg (1,000 unit) capsule 100 mcg PO QHS acetaminophen 500 mg Tablet 1,000 mg PO TID PRN (Reason: pain) Rx Instructions: Do not take more than 3000 mg Tylenol in a 24-hour period. aspirin 81 mg Tablet,Chewable 81 mg PO DAILY Referrals / Follow Up: Mat Escalante MD [Primary Care Provider] - Within 1 Week Disposition Disposition (needs filled in before D/C Order can be placed): Inpatient Rehab Unit/Facility Charges/Coding Visit Charges Inpatient E&M: 28209 Disch Hosp >30min
--- NOTE | 2024-11-15 16:30 | CASEMGMT ---
Social Work Pt accepted into [facility] and can go today. ELENA let know, he is agreeable to this plan, would like to bring pt over himself w/the son. ELENA let physician and [facility] know family will transport. ELENA sent d/c instructions to [facility] via [employer]. SW spoke w/ again, his son will be here in the next hour to take pt to [facility]. Physician also came into the room and did tell pt and he does think pt did have a stroke. ELENA passed this on to [facility]. ELENA also let [facility] know pt will leave in the next hour. RN aware, given nurse to nurse number to call. Pt to [facility]pt rehab today, [facility]. PHQ-9 still not completed due to pt having difficulty answering questions. KEYONA Marlow
[2024-11-15 18:07] VITALS: BP 158/66; PULSE 80; RESP 16; TEMP 36.7; O2SAT 99
--- NOTE | 2024-11-15 19:08 | NURSING ---
Report called to EYAL Terrazas at 1900 to [facility] at this time.
== END 2024-11-15 18:47 ==
LOC: ED 16:02 → PCU 16:16
PROVIDERS: Internal Medicine; Admitting Provider Internal Medicine; Emergency Provider Emergency Medicine; PCP Family Medicine; Visit Provider Family Medicine
DX: R47.01 Aphasia (principal); E11.9 Type 2 diabetes mellitus without complications; Z79.4 Long term (current) use of insulin; R41.0 Disorientation, unspecified; F41.8 Other specified anxiety disorders; E78.00 Pure hypercholesterolemia, unspecified; R26.2 Difficulty in walking, not elsewhere classified; I10 Essential (primary) hypertension; K21.9 Gastro-esophageal reflux disease without esophagitis; Z79.899 Other long term (current) drug therapy; Z79.82 Long term (current) use of aspirin; K80.20 Calculus of gallbladder without cholecystitis without obstruction
CPT/HCPCS: 36415; 70450; 70496; 70498; 70551; 71046; 74230; 80048; 80053; 80061; 81001; 82140; 82962; 83735; 84443; 84484; 85025; 92523; 92526; 92610; 92611; 93005; 93306; 94762; 96361; 96372; 96374; 96375; 96376; 97116; 97162; 97166; 97530; 97535; 99221; 99285; Q9957; Q9967; A4216; C8929; G0378

== ENCOUNTER → 2024-12-03 | Outpatient (CLI) | payer MEDICARE, OTHER, SELFPAY ==
[2024-12-03 15:38] LABS: Mucous, Urine 0 SEEN /hpf (<or=2+)
[2024-12-03 18:46] LABS: Hematocrit 36.8 % (37-47); Hemoglobin 12.2 g/dL (12.0-15.0); Immature Granulocytes Count 0.020 X10^3/uL (0.0-0.0); Mean Corp Hgb Conc 33.2 g/dL (32-36); Mean Corpuscular Volume 88.0 fL (81-99); Mean Platelet Vol. 11.4 fl (6.2-12.0); NRBC Flagged by Analyzer 0 % (0-5); Platelet Count 336 K/mm3 (150-450); RBC Distribution Width CV 14.2 % (11.6-14.6); RBC Distribution Width SD 45.5 fl (35.1-43.9); Red Blood Count 4.18 M/mm3 (4.2-5.4); White Blood Count 9.1 K/mm3 (4.4-11.0)
[2024-12-03 19:11] LABS: AST(SGOT) 39 U/L (<=31); Alanine Aminotransfer ALT/SGPT 49 U/L (<=34); Albumin, Serum 4.2 g/dL (3.4-4.8); Alkaline Phosphatase 92 U/L (35-104); Anion Gap 13 (5-15); BUN 14 mg/dL (4-19); BUN/Creat Ratio 18.9 RATIO (10-20); Calcium,Total 9.7 mg/dL (7.6-11.0); Carbon Dioxide 23.6 mmol/L (21.0-32.0); Chloride 95 mmol/L (98-108); Globulin 2.8 g/dL (2.2-4.2); Glucose 156 mg/dL (70-99); Magnesium 2.0 mg/dL (1.5-2.2); Potassium 4.1 mmol/L (3.3-5.1)
[2024-12-03 20:44] LABS: Color, Urine Yellow (Yellow); Glucose, Dipstick 1000 mg/dl (Normal); Ketone-Dipstick Negative (Negative); Leukocyte Esterase-Dipstick Negative /ul (Negative); Nitrite-Dipstick Negative (Negative); Occult Blood-Urine Negative /ul (Negative); Protein-Dipstick 15 mg/dl (Negative); Specific Gravity, Urine 1.010 (1.002-1.030); Urine Bilirubin Dipstick Negative (Negative)
[2024-12-03 21:22] LABS: Red Blood Cells-Urine 0-5 SEEN /hpf (0-5); Squamous Epithelial Cells - UA 0-5 SEEN /hpf (5-10)
== END | disposition home or self-care (01) ==
LOC: MFPLAB 15:34
PROVIDERS: PCP Family Medicine; Referring Provider Family Medicine; Visit Provider Family Medicine
DX: E11.59 Type 2 diabetes mellitus with other circulatory complications (principal)
CPT/HCPCS: 36415; 80053; 81001; 83036; 83735; 85025

== ENCOUNTER 2025-01-02 10:11 | Emergency (ER) | payer MEDICARE, OTHER, SELFPAY ==
[2025-01-02 10:12] VITALS: BP 197/60; PULSE 63; RESP 18; TEMP 36.6; O2SAT 93; BMI 24.9
--- OUTSIDE RECORDS SUMMARY | 2025-01-02 10:58 | XMS RPT_ITS | CCD ---
Author Organization [facility] Care Team Providers Care Chain Offbearer Name Role Phone SHERIDAN NOWAK Attending Unavailable RONAK MCCRARY Primary Care Unavailable SHERIDAN NOWAK Attending Unavailable RONAK MCCRARY Primary Care Unavailable YUMIKO GASCA Admitting Unavailable HARPREET DUBOIS Consulting Unavailable YUMIKO GASCA Attending Unavailable FARIBA ROMERO Consulting Unavailable RO CLAIRE Consulting Unavailable PINKY SOSA Attending Unavailable PINKY SOSA Admitting Unavailable Ronak Escalante Primary Care Unavailable Ronak Escalante Attending Unavailable Ronak Escalante Referring Unavailable Ronak Escalante Primary Care Unavailable Ronak Escalante Attending Unavailable Ronak Escalante Referring Unavailable Ronak Escalante Primary Care Unavailable Ronak Escalante Attending Unavailable Ronak Escalante Referring Unavailable Ronak Escalante Referring Unavailable Ronak Escalante Attending Unavailable Ronak Escalante Primary Care Unavailable Ronak Escalante Referring Unavailable Ronak Escalante Attending Unavailable Ronak Escalante Primary Care Unavailable Ronak Escalante Attending Unavailable Ronak Escalante Primary Care Unavailable Ronak Escalante Referring Unavailable Ronak Escalante Primary Care Unavailable Sylvain Salamanca Attending Unavailable Carmel Weston Consulting Unavailable Carmel Weston Admitting Unavailable Rajeev Odonnell Consulting Unavailable Ronak Escalante Primary Care Unavailable Sylvain Salamanca Consulting Unavailable Sheridan Nowak Admitting Unavailable Sheridan Nowak Attending Unavailable Sheridan Nowak Referring Unavailable Ronak Escalante Primary Care Unavailable Sheridan Nowak Attending Unavailable Sheridan Nowak Referring Unavailable Ronak Escalante Primary Care Unavailable Sheridan Woods Attending Unavailable Ronak Escalante Primary Care Unavailable Sheridan Woods Attending Unavailable Ronak Escalante Referring Unavailable SchRonak cole E Primary Care Unavailable Kayy Tasha Attending Unavailable Sylvain Salamanca Attending Unavailable Ronak Escalante E Primary Care Unavailable Sylvain Salamanca Consulting Unavailable Sheridan Nowak Admitting Unavailable Sheridan Nowak Referring Unavailable Sheridan Nowak Consulting Unavailable Sylvain Salamanca Attending Unavailable Ronak Escalante E Primary Care Unavailable Carmel Weston Consulting Unavailable Carmel Weston Admitting Unavailable Rajeev Odonnell Consulting Unavailable Sylvain Salamanca Consulting Unavailable Schinkannan, Ronak E Primary Care Unavailable Sheridan Woods Attending Unavailable Ronak Escalante E Primary Care Unavailable Ronak Escalante Attending Unavailable Ronak Escalante Referring Unavailable Schinkannan, Ronak E Primary Care Unavailable Referred, Self Attending Unavailable Boris, Ronak E Primary Care Unavailable Referred, Self Attending Unavailable Ronak Escalante E Primary Care Unavailable Ronak Escalante Attending Unavailable Ronak Escalante E Primary Care Unavailable Sheridan Nowak Referring Unavailable Sheridan Nowak Attending Unavailable Boris, Ronak E Primary Care Unavailable Charly Perez Attending Unavailable Charly Perez Referring Unavailable Black Avery Consulting Unavailable Rajeev Odonnell Attending Unavailable Tania Gerardo Consulting Unavailable Carolin Greenwood Consulting Unavailable Esme Sow Consulting Unavailable Sarai Ramírez Consulting Unavailable Jeff Mayberry Consulting Unavailable Gauri Saxena Consulting Unavailable Luke Aaron Consulting Unavailable Flex Beckford Consulting Unavailable El Perry Consulting Unavailable Chelsi Narayanan Consulting Unavailable Eugenia Mixon Consulting Unavailable Obie Denson Consulting Unavailable Eve Isaac Consulting Unavailable Sheyla Sims Consulting Unavailable Cecilia Munoz Consulting UnavailRashid De León Consulting Unavailable Laly Winchester Consulting Unavailable Darrick Morales Consulting Unavailable April Stern Consulting Unavailable Obi Butler Consulting Unavailable Carmel Weston Attending Unavailable Ronak Escalante E Primary Care Unavailable Arnoldo Arriaga Attending UnavailRonak Reyes E Primary Care Unavailable Scooter Reyes Attending Unavailable Sheridan Nowak Referring Unavailable Ronak Escalante E Primary Care Unavailable Sheridan Woods Attending Unavailable Ronak Escalante Primary Care Unavailable Ronak Escalante Attending Unavailable Ronak Escalante Referring Unavailable Ronak Escalante Primary Care Unavailable Tasha Sultana Referring Unavailable Tasha Sultana Attending Unavailable Ronak Escalante Attending Unavailable Ronak Escalante Primary Care Unavailable Ronak Escalante Referring Unavailable Allergies Allergy Classification Reported Allergen(s) Allergy Type Date of Onset Reaction(s) Facility (1 source) Codeine Drug Allergy 11-12-2024 [facility] Repository (1 source) Morphine Drug Allergy 11-12-2024 [facility] Repository Problems Active Problems Problem Classification Problem Date Documented Da te Episodic/Chronic Diabetes mellitus with complications (4 sources) Type 2 diabetes mellitus with hyperglycemia; Translations: [Type 2 diabetes mellitus with other circulatory complications] Onset: 02-18-2023 Chronic Essential hypertension (2 sources) Essential (primary) hypertension; Translations: [Essential (primary) hypertension] Onset: 02-18-2023 Chronic Mood disorders (1 source) Major depressive disorder, single episode, unspecified; Translations: [Major depressive disorder, single episode, unspecified] Onset: 10-28-2024 Chronic Mood disorders (2 sources) Mood disorders; Translations: [Depression, unspecified] Onset: 02-18-2023 Nausea and vomiting (1 source) Nausea; Translations: [Nausea] Onset: 10-27-2024 Episodic Osteoarthritis (1 source) Primary osteoarthritis, right shoulder; Translations: [Primary osteoarthritis, right shoulder] Onset: 07-11-2024 Chronic Other aftercare (2 sources) care home (current) use of insulin; 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)] Onset: 02-18-2023 Episodic Other connective tissue disease (1 source) Presence of right artificial shoulder joint; Translations: [Presence of right artificial shoulder joint] Onset: 06-23-2024 Chronic Other hereditary and degenerative nervous system conditions (1 source) Drug induced subacute dyskinesia; Translations: [Drug induced subacute dyskinesia] Onset: 10-28-2024 Episodic Other nervous system disorders (1 source) Aphasia; Translations: [Aphasia] Onset: 11-15-2024 Chronic Other nervous system disorders (2 sources) Other symptoms and signs involving cognitive functions and awareness; Translations: [Other symptoms and signs involving cognitive functions and awareness] Onset: 02-18-2023 Episodic Residual codes; unclassified (1 source) Disorientation, unspecified; Translations: [Disorientation, unspecified] Onset: 12-06-2024 Episodic Suicide and intentional self-inflicted injury (2 sources) Suicidal ideations; Translations: [Suicidal ideations] Onset: 02-18-2023 Episodic Past or Other Problems Problem Classification Problem Date Documented Da te Episodic/Chronic Deficiency and other anemia (2 sources) Anemia, unspecified; Translations: [Anemia, unspecified] Onset: 04-06-2024 Episodic Other gastrointestinal disorders (1 source) Diarrhea, unspecified; Translations: [Diarrhea, unspecified] Onset: 09-08-2024 Episodic Results Test Name Value Interpretation Reference Range Facility CBC W/Diff, Automatedon 11-09 Absolute Lymph 2.13 X10 3/uL Normal 0.83-4.51 [facility] Comment on above: Order Comment: Order Date: 12/03/24Order Info: 0184-1 - CBCD Performed By: #### L 100.0100, L500.4050, L501.9985, L501.5200 ####[facility] [address] [place], [address] Absolute Neut 6.0 X10 3/uL Normal 2.0-7.7 [facility] Comment on above: Order Comment: Order Date: 12/03/24Order Info: 0184-1 - CBCD Performed By: #### L 100.0100, L500.4050, L501.9985, L501.5200 ####[facility] [address] [place], [address] Basophils/100 WBC (Bld) 0.9 % Normal 0-1 [facility] Comment on above: Order Comment: Order Date: 12/03/24Order Info: 0184-1 - CBCD Performed By: #### L 100.0100, L500.4050, L501.9985, L501.5200 ####[facility] [address] [place], [address] Eosinophils/100 WBC (Bld) 1.3 % Normal 0-5 [facility] Comment on above: Order Comment: Order Date: 12/03/24Order Info: 018-1 - CBCD Performed By: #### L 100.0100, L500.4050, L501.9985, L501.5200 ####[facility] [address] [place], [address] Erythrocyte distribution width (RBC) [Ratio] 14.2 % Normal 11.6-14.6 [facility] Comment on above: Order Comment: Order Date: 12/03/24Order Info: 018- - CBCD Performed By: #### L 100.0100, L500.4050, L501.9985, L501.5200 ####[facility] [address] [place], [address] Hematocrit (Bld) [Volume fraction] 36.8 % Low 37-47 [facility] Comment on above: Order Comment: Order Date: 12/03/24Order Info: 018- - CBCD Performed By: #### L 100.0100, L500.4050, L501.9985, L501.5200 ####[facility] [address] [place], [address] Hemoglobin (Bld) [Mass/Vol] 12.2 g/dL Normal 12.0-15.0 [facility] Comment on above: Order Comment: Order Date: 12/03/24Order Info: 018- - CBCD Performed By: #### L 100.0100, L500.4050, L501.9985, L501.5200 ####[facility] [address] [place], [address] IG% 0.200 Normal 0.0-0.9 [facility] Comment on above: Order Comment: Order Date: 12/03/24Order Info: 0184-1 - CBCD Result Comment: IG% - Immature Granulocytes (promyelocytes, myelocytes andmetamyelocytes) > 1% indicates that a LEFT SHIFT is Present. Performed By: #### L 100.0100, L500.4050, L501.9985, L501.5200 ####[facility] [address] [place], [address] Lymphocytes/100 WBC (Bld) 23.5 % Normal 19-41 [facility] Comment on above: Order Comment: Order Date: 12/03/24Order Info: 0184-1 - CBCD Performed By: #### L 100.0100, L500.4050, L501.9985, L501.5200 ####[facility] [address] [place], [address] MCH (RBC) [Entitic mass] 29.2 pg Normal 27.0-32.0 [facility] Comment on above: Order Comment: Order Date: 12/03/24Order Info: 0184-1 - CBCD Performed By: #### L 100.0100, L500.4050, L501.9985, L501.5200 ####[facility] [address] [place], [address] MCHC (RBC) [Mass/Vol] 33.2 g/dL Normal 32-36 [facility] Comment on above: Order Comment: Order Date: 12/03/24Order Info: 0184-1 - CBCD Performed By: #### L 100.0100, L500.4050, L501.9985, L501.5200 ####[facility] [address] [place], [address] MCV (RBC) [Entitic vol] 88.0 fL Normal 81-99 [facility] Comment on above: Order Comment: Order Date: 12/03/24Order Info: 0184-1 - CBCD Performed By: #### L 100.0100, L500.4050, L501.9985, L501.5200 ####[facility] [address] [place], [address] Monocytes/100 WBC (Bld) 7.4 % Normal 0-10 [facility] Comment on above: Order Comment: Order Date: 12/03/24Order Info: 0184-1 - CBCD Performed By: #### L 100.0100, L500.4050, L501.9985, L501.5200 ####[facility] [address] [place], [address] Neutrophils/100 WBC (Bld) 66.7 % Normal 47-70 [facility] Comment on above: Order Comment: Order Date: 12/03/24Order Info: 0184-1 - CBCD Performed By: #### L 100.0100, L500.4050, L501.9985, L501.5200 ####[facility] [address] [place], [address] Nucleated RBC (Bld) [#/Vol] 0 10*3/uL Normal 0-5 [facility] Comment on above: Order Comment: Order Date: 12/03/24Order Info: 0184-1 - CBCD Performed By: #### L 100.0100, L500.4050, L501.9985, L501.5200 ####[facility] [address] [place], [address] Platelet mean volume (Bld) [Entitic vol] 11.4 fL Normal 6.2-12.0 [facility] Comment on above: Order Comment: Order Date: 12/03/24Order Info: 0184-1 - CBCD Performed By: #### L 100.0100, L500.4050, L501.9985, L501.5200 ####[facility] [address] [place], [address] Platelets (Bld) [#/Vol] 336 10*3/uL Normal 150-450 [facility] Comment on above: Order Comment: Order Date: 12/03/24Order Info: 0184-1 - CBCD Performed By: #### L 100.0100, L500.4050, L501.9985, L501.5200 ####[facility] [address] [place], [address] RBC (Bld) [#/Vol] 4.18 10*6/uL Low 4.2-5.4 [facility] Comment on above: Order Comment: Order Date: 12/03/24Order Info: 0184-1 - CBCD Performed By: #### L 100.0100, L500.4050, L501.9985, L501.5200 ####[facility] [address] [place], [address] RDW SD 45.5 fl High 35.1-43.9 [facility] Comment on above: Order Comment: Order Date: 12/03/24Order Info: 0184-1 - CBCD Performed By: #### L 100.0100, L500.4050, L501.9985, L501.5200 ####[facility] [address] [place], [address] WBC (Bld) [#/Vol] 9.1 10*3/uL Normal 4.4-11.0 [facility] Comment on above: Order Comment: Order Date: 12/03/24Order Info: 0184-1 - CBCD Performed By: #### L 100.0100, L500.4050, L501.9985, L501.5200 ####[facility] [address] [place], [address] Comprehensive Metabolic Prof ilon 12-03-2024 Albumin [Mass/Vol] 4.2 g/dL Normal 3.4-4.8 [facility] Comment on above: Order Comment: Order Date: 12/03/24Order Info: 0786-1 - CMPOrder Info: [id number] - MG Performed By: #### L 100.0100, L500.4050, L501.9985, L501.5200 ####[facility] [address] [place], [address] Albumin/Globulin [Mass ratio] 1.5 {ratio} Normal 0.9-2.4 [facility] Comment on above: Order Comment: Order Date: 12/03/24Order Info: 0786-1 - CMPOrder Info: [id number] - MG Performed By: #### L 100.0100, L500.4050, L501.9985, L501.5200 ####[facility] [address] [place], [address] ALK PHOS 92 U/L Normal 35-104 [facility] Comment on above: Order Comment: Order Date: 12/03/24Order Info: [id number] - CMPOrder Info: [id number] - MG Performed By: #### L 100.0100, L500.4050, L501.9985, L501.5200 ####[facility] [address] [place], [address] ALT [Catalytic activity/Vol] 49 U/L High <=34 [facility] Comment on above: Order Comment: Order Date: 12/03/24Order Info: [id number] - CMPOrder Info: [id number] - MG Performed By: #### L 100.0100, L500.4050, L501.9985, L501.5200 ####[facility] [address] [place], [address] AST [Catalytic activity/Vol] 39 U/L High <=31 [facility] Comment on above: Order Comment: Order Date: 12/03/24Order Info: [id number] - CMPOrder Info: [id number] - MG Performed By: #### L 100.0100, L500.4050, L501.9985, L501.5200 ####[facility] [address] [place], [address] Bilirubin [Mass/Vol] 0.43 mg/dL Normal 0.00-1.30 [facility] Comment on above: Order Comment: Order Date: 12/03/24Order Info: [id number] - CMPOrder Info: [id number] - MG Performed By: #### L 100.0100, L500.4050, L501.9985, L501.5200 ####[facility] [address] [place], [address] BUN/CRE 18.9 RATIO Normal 10-20 [facility] Comment on above: Order Comment: Order Date: 12/03/24Order Info: [id number] - CMPOrder Info: [id number] - MG Performed By: #### L 100.0100, L500.4050, L501.9985, L501.5200 ####[facility] [address] [place], [address] Calcium [Mass/Vol] 9.7 mg/dL Normal 7.6-11.0 [facility] Comment on above: Order Comment: Order Date: 12/03/24Order Info: 0786-1 - CMPOrder Info: [id number] - MG Performed By: #### L 100.0100, L500.4050, L501.9985, L501.5200 ####[facility] [address] [place], [address] Chloride [Moles/Vol] 95 mmol/L Low 98-108 [facility] Comment on above: Order Comment: Order Date: 12/03/24Order Info: [id number] - CMPOrder Info: [id number] - MG Performed By: #### L 100.0100, L500.4050, L501.9985, L501.5200 ####[facility] [address] [place], [address] CO2 [Moles/Vol] 23.6 mmol/L Normal 21.0-32.0 [facility] Comment on above: Order Comment: Order Date: 12/03/24Order Info: [id number] - CMPOrder Info: [id number] - MG Performed By: #### L 100.0100, L500.4050, L501.9985, L501.5200 ####[facility] [address] [place], [address] Creatinine [Mass/Vol] 0.73 mg/dL Normal 0.70-1.20 [facility] Comment on above: Order Comment: Order Date: 12/03/24Order Info: 0786-1 - CMPOrder Info: [id number] - MG Performed By: #### L 100.0100, L500.4050, L501.9985, L501.5200 ####[facility] [address] [place], [address] GAP 13 Normal 5-15 [facility] Comment on above: Order Comment: Order Date: 12/03/24Order Info: 0786-1 - CMPOrder Info: [id number] - MG Performed By: #### L 100.0100, L500.4050, L501.9985, L501.5200 ####[facility] [address] [place], [address] GFR/1.73 sq M.predicted among non-blacks MDRD (S/P/Bld) [Vol rate/Area] 81 mL/min/{1.73_m2} Normal >60 [facility] Comment on above: Order Comment: Order Date: 12/03/24Order Info: [id number] - CMPOrder Info: [id number] - MG Result Comment: mL/m in/1.73m2 CKD-EPI Creatinine Equation (2020) Performed By: #### L 100.0100, L500.4050, L501.9985, L501.5200 ####[facility] [address] [place], [address] Globulin (S) [Mass/Vol] 2.8 g/dL Normal 2.2-4.2 [facility] Comment on above: Order Comment: Order Date: 12/03/24Order Info: [id number] - CMPOrder Info: [id number] - MG Performed By: #### L 100.0100, L500.4050, L501.9985, L501.5200 ####[facility] [address] [place], [address] Glucose [Mass/Vol] 156 mg/dL High 70-99 [facility] Comment on above: Order Comment: Order Date: 12/03/24Order Info: [id number] - CMPOrder Info: [id number] - MG Performed By: #### L 100.0100, L500.4050, L501.9985, L501.5200 ####[facility] [address] [place], [address] Potassium [Moles/Vol] 4.1 mmol/L Normal 3.3-5.1 [facility] Comment on above: Order Comment: Order Date: 12/03/24Order Info: [id number] - CMPOrder Info: [id number] - MG Performed By: #### L 100.0100, L500.4050, L501.9985, L501.5200 ####[facility] [address] [place], [address] Sodium [Moles/Vol] 131 mmol/L Low 133-145 [facility] Comment on above: Order Comment: Order Date: 12/03/24Order Info: [id number] - CMPOrder Info: [id number] - MG Performed By: #### L 100.0100, L500.4050, L501.9985, L501.5200 ####[facility] [address] [place], [address] T PROT 7.0 g/dL Normal 5.9-8.4 [facility] Comment on above: Order Comment: Order Date: 12/03/24Order Info: [id number] - CMPOrder Info: [id number] - MG Performed By: #### L 100.0100, L500.4050, L501.9985, L501.5200 ####[facility] [address] [place], [address] Urea nitrogen [Mass/Vol] 14 mg/dL Normal 4-19 [facility] Comment on above: Order Comment: Order Date: 12/03/24Order Info: [id number] - CMPOrder Info: [id number] - MG Performed By: #### L 100.0100, L500.4050, L501.9985, L501.5200 ####[facility] [address] [place], [address] Hemoglobin A1con 12-03-2024 HbA1c (Bld) [Mass fraction] 7.8 % High <=5.6 [facility] Comment on above: Order Comment: Order Date: 12/03/24Order Info: [id number] - A1C Result Comment: Norm al < 5.7 % Prediabetic 5.7 - 6.4 % Diabetic >or= 6.5 % Please note range changes. Performed By: #### L 100.0100, L500.4050, L501.9985, L501.5200 ####[facility] [address] [place], [address] Magnesiumon 12-03-2024 Magnesium [Mass/Vol] 2.0 mg/dL Normal 1.5-2.2 [facility] Comment on above: Order Comment: Order Date: 12/03/24Order Info: 0786-1 - CMPOrder Info: [id number] - MG Performed By: #### L 100.0100, L500.4050, L501.9985, L501.5200 ####[facility] [address] [place], [address] Urinalysis, Completeon 12-03 EPI,SQUAMOUS 0-5 SEEN Normal 5-10 [facility] Comment on above: Order Comment: Urine , Random Performed By: #### L 400.0001 ####[facility] [address] [place], [address] RBC 0-5 SEEN Normal 0-5 [facility] Comment on above: Order Comment: Urine , Random Performed By: #### L 400.0001 ####[facility] [address] [place], [address] WBC 0-5 SEEN Normal 0-5 [facility] Comment on above: Order Comment: Urine , Random Performed By: #### L 400.0001 ####[facility] [address] [place], [address] BACTERIA 0 SEEN Normal None Seen [facility] Comment on above: Order Comment: Urine , Random Performed By: #### L 400.0001 ####[facility] [address] [place], [address] Mucus Ql (Urine sed) 0 SEEN Normal [facility] Comment on above: Order Comment: Urine , Random Performed By: #### L 400.0001 ####[facility] [address] [place], [address] Basic metabolic 2000 panelon 11-25-2024 Anion gap [Moles/Vol] 12 mmol/L Normal 8-15 [facility] Comment on above: Order Comment: Speci men Type: BLOOD SPECIMEN Ordering Facility: [facility] Address: [address] [place] [address] Performed By: #### 2 4321-2 #### [facility] CLIA [id number] [address] [place] [address] [place] Calcium [Mass/Vol] 9.6 mg/dL Normal 8.5-10.2 [facility] Comment on above: Order Comment: Speci men Type: BLOOD SPECIMEN Ordering Facility: [facility] Address: [address] [place] [address] Performed By: #### 2 4321-2 #### [facility] CLIA [id number] [address] [place] [address] [place] Chloride [Moles/Vol] 96 mmol/L Low 98-107 [facility] Comment on above: Order Comment: Speci men Type: BLOOD SPECIMEN Ordering Facility: [facility] Address: [address] [place] [address] Performed By: #### 2 4321-2 #### [facility] CLIA [id number] [address] [place] [address] [place] CO2 [Moles/Vol] 26 mmol/L Normal 22-30 [facility] Comment on above: Order Comment: Speci men Type: BLOOD SPECIMEN Ordering Facility: [facility] Address: [address] [place] [address] Performed By: #### 2 4321-2 #### [facility] CLIA [id number] [address] [place] [address] [place] Creatinine [Mass/Vol] 0.59 mg/dL Normal 0.58-0.96 [facility] Comment on above: Order Comment: Speci men Type: BLOOD SPECIMEN Ordering Facility: [facility] Address: [address] [place] [address] Performed By: #### 2 4321-2 #### [facility] CLIA [id number] [address] [place] [address] [place] eGFRcr SerPlBld CKD-EPI 2020 88 mL/min/1.73m??? Normal >=60 [facility] Comment on above: Order Comment: Speci men Type: BLOOD SPECIMEN Ordering Facility: [facility] Address: [address] [place] [address] Result Comment: Connie mated Glomerular Filtration Rate (eGFR) is calculated using the 2020 CKD-EPI creatinine equation. This equation utilizes serum creatinine, sex, and age as parameters. The creatinine assay has traceable calibration to isotope dilution-mass spectrometry. Refer to KDIGO guidelines for clinical interpretation. In patients with unstable renal function, e.g. those with acute kidney injury, the eGFR may not accurately reflect actual GFR. Performed By: #### 2 4321-2 #### [facility] CLIA [id number] [address] [place] [address] [place] Glucose [Mass/Vol] 162 mg/dL High 74-99 [facility] Comment on above: Order Comment: Speci men Type: BLOOD SPECIMEN Ordering Facility: [facility] Address: [address] [place] [address] Result Comment: The [place] [employer] (ADA) provides guidance for cutoff values for fasting glucose and random glucose. The ADA defines fasting as no caloric intake for at least 8 hours. Fasting plasma glucose results between 100 to 125 mg/dL indicate increased risk for diabetes (prediabetes). Fasting plasma glucose results greater than or equal to 126 mg/dL meet the criteria for diagnosis of diabetes. In the absence of unequivocal hyperglycemia, results should be confirmed by repeat testing. In a patient with classic symptoms of hyperglycemia or hyperglycemic crisis, random plasma glucose results greater than or equal to 200 mg/dL meet the criteria for diagnosis of diabetes. Reference: Standards of Medical Care in Diabetes 2016, [place] [employer]. Diabetes Care. 2016.39(Suppl 1). Performed By: #### 2 4321-2 #### [facility] CLIA [id number] [address] [place] [address] [place] Potassium [Moles/Vol] 4.7 mmol/L Normal 3.7-5.1 [facility] Comment on above: Order Comment: Speci men Type: BLOOD SPECIMEN Ordering Facility: [facility] Address: [address] [place] [address] Performed By: #### 2 4321-2 #### [facility] CLIA [id number] [address] [place] [address] [place] Sodium [Moles/Vol] 134 mmol/L Low 136-144 [facility] Comment on above: Order Comment: Speci men Type: BLOOD SPECIMEN Ordering Facility: [facility] Address: [address] [place] [address] Performed By: #### 2 4321-2 #### [facility] CLIA [id number] [address] [place] [address] [place] Urea nitrogen [Mass/Vol] 11 mg/dL Normal 7-21 [facility] Comment on above: Order Comment: Speci men Type: BLOOD SPECIMEN Ordering Facility: [facility] Address: [address] [place] [address] Performed By: #### 2 4321-2 #### [facility] CLIA [id number] [address] [place] [address] [place] CBC panel Auto (Bld)on 11-25 Erythrocyte distribution width (RBC) [Ratio] 13.9 % Normal 11.5-15.0 [facility] Comment on above: Order Comment: Speci men Type: BLOOD SPECIMEN Ordering Facility: [facility] Address: [address] [place] [address] Performed By: #### 5 8410-2 #### [facility] CLIA [id number] [address] [place] [address] [place] Hematocrit (Bld) [Volume fraction] 32.1 % Low 36.0-46.0 [facility] Comment on above: Order Comment: Speci men Type: BLOOD SPECIMEN Ordering Facility: [facility] Address: [address] [place] [address] Performed By: #### 5 8410-2 #### [facility] CLIA [id number] [address] [place] [address] STATES [facility] Hemoglobin (Bld) [Mass/Vol] 11.0 g/dL Low 11.5-15.5 [facility] Comment on above: Order Comment: Speci men Type: BLOOD SPECIMEN Ordering Facility: [facility] Address: [address] [place] [address] Performed By: #### 5 8410-2 #### [facility] CLIA [id number] [address] [place] [address] [place] MCH (RBC) [Entitic mass] 29.2 pg Normal 26.0-34.0 [facility] Comment on above: Order Comment: Speci men Type: BLOOD SPECIMEN Ordering Facility: [facility] Address: [address] [place] [address] Performed By: #### 5 8410-2 #### [facility] CLIA [id number] [address] [place] [address] [place] MCHC (RBC) [Mass/Vol] 34.3 g/dL Normal 30.5-36.0 [facility] Comment on above: Order Comment: Speci men Type: BLOOD SPECIMEN Ordering Facility: [facility] Address: [address] [place] [address] Performed By: #### 5 8410-2 #### [facility] CLIA [id number] [address] [place] [address] [place] MCV (RBC) [Entitic vol] 85.1 fL Normal 80.0-100.0 [facility] Comment on above: Order Comment: Speci men Type: BLOOD SPECIMEN Ordering Facility: [facility] Address: [address] [place] [address] Performed By: #### 5 8410-2 #### [facility] CLIA [id number] [address] [place] [address] [place] Nucleated RBC (Bld) [#/Vol] 10*3/uL Normal <0.01 [facility] Comment on above: Order Comment: Speci men Type: BLOOD SPECIMEN Ordering Facility: [facility] Address: [address] [place] [address] Performed By: #### 5 8410-2 #### [facility] CLIA [id number] [address] [place] [address] [place] Platelet mean volume (Bld) [Entitic vol] 12.0 fL Normal 9.0-12.7 [facility] Comment on above: Order Comment: Speci men Type: BLOOD SPECIMEN Ordering Facility: [facility] Address: [address] [place] [address] Performed By: #### 5 8410-2 #### [facility] CLIA [id number] [address] [place] [address] [place] Platelets (Bld) [#/Vol] 238 10*3/uL Normal 150-400 [facility] Comment on above: Order Comment: Speci men Type: BLOOD SPECIMEN Ordering Facility: [facility] Address: [address] [place] [address] Performed By: #### 5 8410-2 #### [facility] CLIA [id number] [address] [place] [address] [place] RBC (Bld) [#/Vol] 3.77 10*6/uL Low 3.90-5.20 [facility] Comment on above: Order Comment: Speci men Type: BLOOD SPECIMEN Ordering Facility: [facility] Address: [address] [place] [address] Performed By: #### 5 8410-2 #### [facility] CLIA [id number] [address] [place] [address] [place] WBC (Bld) [#/Vol] 6.27 10*3/uL Normal 3.70-11.00 [facility] Comment on above: Order Comment: Speci men Type: BLOOD SPECIMEN Ordering Facility: [facility] Address: [address] [place] [address] Performed By: #### 5 8410-2 #### [facility] CLIA [id number] [address] [place] [address] [place] Ammonia Plas-sCncon 11-25-19 25 Ammonia (P) [Moles/Vol] 14 umol/L Normal 11-51 [facility] Comment on above: Order Comment: Speci men Type: BLOOD SPECIMEN Ordering Facility: [facility] Address: [address] [place] [address] Performed By: #### 1 6362-6 #### [facility] CLIA [id number] [address] [place] [address] [place] Hepatic function 2000 panelo n 11-24-2024 Albumin [Mass/Vol] 3.6 g/dL Low 3.9-4.9 [facility] Comment on above: Order Comment: Speci men Type: BLOOD SPECIMEN Ordering Facility: [facility] Address: [address] [place] [address] Performed By: #### 2 4325-3 #### [facility] CLIA [id number] [address] [place] [address] [place] ALP [Catalytic activity/Vol] 79 U/L Normal 34-123 [facility] Comment on above: Order Comment: Speci men Type: BLOOD SPECIMEN Ordering Facility: [facility] Address: [address] [place], [place] [address] Performed By: #### 2 4325-3 #### [facility] CLIA [id number] [address] [place] [address] [place] ALT [Catalytic activity/Vol] 24 U/L Normal 7-38 [facility] Comment on above: Order Comment: Speci men Type: BLOOD SPECIMEN Ordering Facility: [facility] Address: [address] [place] [address] Performed By: #### 2 4325-3 #### [facility] CLIA [id number] [address] [place] [address] [place] AST [Catalytic activity/Vol] 24 U/L Normal 13-35 [facility] Comment on above: Order Comment: Speci men Type: BLOOD SPECIMEN Ordering Facility: [facility] Address: [address] [place] [address] Performed By: #### 2 4325-3 #### [facility] CLIA [id number] [address] [place] [address] [place] Bilirubin [Mass/Vol] 0.5 mg/dL Normal 0.2-1.3 [facility] Comment on above: Order Comment: Speci men Type: BLOOD SPECIMEN Ordering Facility: [facility] Address: [address] [place] [address] Performed By: #### 2 4325-3 #### [facility] CLIA [id number] [address] [place] Bilirubin.conjugat ed [Mass/Vol] 0.2 mg/dL Normal <0.3 [facility] Comment on above: Order Comment: Speci men Type: BLOOD SPECIMEN Ordering Facility: [facility] Address: [address] [place] [address] Performed By: #### 2 4325-3 #### [facility] CLIA [id number] [address] [place] Protein [Mass/Vol] 6.7 g/dL Normal 6.3-8.0 [facility] Comment on above: Order Comment: Speci men Type: BLOOD SPECIMEN Ordering Facility: [facility] Address: [address] [place] [address] Performed By: #### 2 4325-3 #### [facility] CLIA [id number] [address] [place] [address] [place] Basic metabolic 2000 panelon 11-22-2024 Anion gap [Moles/Vol] 13 mmol/L Normal 8-15 [facility] Comment on above: Order Comment: Speci men Type: BLOOD SPECIMEN Ordering Facility: [facility] Address: [address] [place] [address] Performed By: #### 2 4321-2 #### [facility] CLIA [id number] [address] [place] [address] [place] Calcium [Mass/Vol] 10.0 mg/dL Normal 8.5-10.2 [facility] Comment on above: Order Comment: Speci men Type: BLOOD SPECIMEN Ordering Facility: [facility] Address: [address] [place] [address] Performed By: #### 2 4321-2 #### [facility] CLIA [id number] [address] [place] [address] [place] Chloride [Moles/Vol] 100 mmol/L Normal 98-107 [facility] Comment on above: Order Comment: Speci men Type: BLOOD SPECIMEN Ordering Facility: [facility] Address: [address] [place] [address] Performed By: #### 2 4321-2 #### [facility] CLIA [id number] [address] [place] [address] [place] CO2 [Moles/Vol] 26 mmol/L Normal 22-30 [facility] Comment on above: Order Comment: Speci men Type: BLOOD SPECIMEN Ordering Facility: [facility] Address: [address] [place] [address] Performed By: #### 2 4321-2 #### [facility] CLIA [id number] [address] [place] [address] [place] Creatinine [Mass/Vol] 0.54 mg/dL Low 0.58-0.96 [facility] Comment on above: Order Comment: Ame lozoya Type: BLOOD SPECIMEN Ordering Facility: [facility] Address: [address] [place] [address] Performed By: #### 2 4321-2 #### [facility] CLIA [id number] [address] [place] [address] [place] eGFRcr SerPlBld CKD-EPI 2020 90 mL/min/1.73m??? Normal >=60 [facility] Comment on above: Order Comment: Ame devora Type: BLOOD SPECIMEN Ordering Facility: [facility] Address: [address] [place] [address] Result Comment: Connie mated Glomerular Filtration Rate (eGFR) is calculated using the 2020 CKD-EPI creatinine equation. This equation utilizes serum creatinine, sex, and age as parameters. The creatinine assay has traceable calibration to isotope dilution-mass spectrometry. Refer to KDIGO guidelines for clinical interpretation. In patients with unstable renal function, e.g. those with acute kidney injury, the eGFR may not accurately reflect actual GFR. Performed By: #### 2 4321-2 #### [facility] CLIA [id number] [address] [place] [address] [place] Glucose [Mass/Vol] 165 mg/dL High 74-99 [facility] Comment on above: Order Comment: Ame devora Type: BLOOD SPECIMEN Ordering Facility: [facility] Address: [address] [place] [address] Result Comment: The [place] Diabetes [employer] (ADA) provides guidance for cutoff values for fasting glucose and random glucose. The ADA defines fasting as no caloric intake for at least 8 hours. Fasting plasma glucose results between 100 to 125 mg/dL indicate increased risk for diabetes (prediabetes). Fasting plasma glucose results greater than or equal to 126 mg/dL meet the criteria for diagnosis of diabetes. In the absence of unequivocal hyperglycemia, results should be confirmed by repeat testing. In a patient with classic symptoms of hyperglycemia or hyperglycemic crisis, random plasma glucose results greater than or equal to 200 mg/dL meet the criteria for diagnosis of diabetes. Reference: Standards of Medical Care in Diabetes 2016, [place] [employer]. Diabetes Care. 2016.39(Suppl 1). Performed By: #### 2 4321-2 #### [facility] CLIA [id number] [address] [place] [address] [place] Potassium [Moles/Vol] 4.9 mmol/L Normal 3.7-5.1 [facility] Comment on above: Order Comment: Speci men Type: BLOOD SPECIMEN Ordering Facility: [facility] Address: [address] [place] [address] Performed By: #### 2 4321-2 #### [facility] CLIA [id number] [address] [place] [address] [place] Sodium [Moles/Vol] 139 mmol/L Normal 136-144 [facility] Comment on above: Order Comment: Speci men Type: BLOOD SPECIMEN Ordering Facility: [facility] Address: [address] [place] [address] Performed By: #### 2 4321-2 #### [facility] CLIA [id number] [address] [place] [address] [place] Urea nitrogen [Mass/Vol] 12 mg/dL Normal 7-21 [facility] Comment on above: Order Comment: Speci men Type: BLOOD SPECIMEN Ordering Facility: [facility] Address: [address] [place] [address] Performed By: #### 2 4321-2 #### [facility] CLIA [id number] [address] [place] [address] [place] CBC panel Auto (Bld)on 11-22 Erythrocyte distribution width (RBC) [Ratio] 14.5 % Normal 11.5-15.0 [facility] Comment on above: Order Comment: Speci men Type: BLOOD SPECIMEN Ordering Facility: [facility] Address: [address] [place] [address] Performed By: #### 5 8410-2 #### [facility] CLIA [id number] [address] [place] [address] [place] Hematocrit (Bld) [Volume fraction] 33.6 % Low 36.0-46.0 [facility] Comment on above: Order Comment: Speci men Type: BLOOD SPECIMEN Ordering Facility: [facility] Address: [address] [place] [address] Performed By: #### 5 8410-2 #### [facility] CLIA [id number] [address] [place] [address] [place] Hemoglobin (Bld) [Mass/Vol] 11.0 g/dL Low 11.5-15.5 [facility] Comment on above: Order Comment: Speci men Type: BLOOD SPECIMEN Ordering Facility: [facility] Address: [address] [place] [address] Performed By: #### 5 8410-2 #### [facility] CLIA [id number] [address] [place] [address] [place] MCH (RBC) [Entitic mass] 29.3 pg Normal 26.0-34.0 [facility] Comment on above: Order Comment: Speci men Type: BLOOD SPECIMEN Ordering Facility: [facility] Address: [address] [place] [address] Performed By: #### 5 8410-2 #### [facility] CLIA [id number] [address] [place] [address] [place] MCHC (RBC) [Mass/Vol] 32.7 g/dL Normal 30.5-36.0 [facility] Comment on above: Order Comment: Speci men Type: BLOOD SPECIMEN Ordering Facility: [facility] Address: [address] [place] [address] Performed By: #### 5 8410-2 #### [facility] CLIA [id number] [address] [place] [address] [place] MCV (RBC) [Entitic vol] 89.6 fL Normal 80.0-100.0 [facility] Comment on above: Order Comment: Speci men Type: BLOOD SPECIMEN Ordering Facility: [facility] Address: [address] [place] [address] Performed By: #### 5 8410-2 #### [facility] CLIA [id number] [address] [place] [address] [place] Nucleated RBC (Bld) [#/Vol] 10*3/uL Normal <0.01 [facility] Comment on above: Order Comment: Speci men Type: BLOOD SPECIMEN Ordering Facility: [facility] Address: [address] [place] [address] Performed By: #### 5 8410-2 #### [facility] CLIA [id number] [address] [place] [address] [place] Platelet mean volume (Bld) [Entitic vol] 12.4 fL Normal 9.0-12.7 [facility] Comment on above: Order Comment: Speci men Type: BLOOD SPECIMEN Ordering Facility: [facility] Address: [address] [place] [address] Performed By: #### 5 8410-2 #### [facility] CLIA [id number] [address] [place] [address] [place] Platelets (Bld) [#/Vol] 217 10*3/uL Normal 150-400 [facility] Comment on above: Order Comment: Speci men Type: BLOOD SPECIMEN Ordering Facility: [facility] Address: [address] [place] [address] Performed By: #### 5 8410-2 #### [facility] CLIA [id number] [address] [place] [address] [place] RBC (Bld) [#/Vol] 3.75 10*6/uL Low 3.90-5.20 [facility] Comment on above: Order Comment: Speci men Type: BLOOD SPECIMEN Ordering Facility: [facility] Address: [address] [place] [address] Performed By: #### 5 8410-2 #### [facility] CLIA [id number] [address] [place] [address] [place] WBC (Bld) [#/Vol] 7.37 10*3/uL Normal 3.70-11.00 [facility] Comment on above: Order Comment: Speci men Type: BLOOD SPECIMEN Ordering Facility: [facility] Address: [address] [place] [address] Performed By: #### 5 8410-2 #### [facility] CLIA [id number] [address] [place] [address] [place] Basic metabolic 2000 panelon 11-18-2024 Anion gap [Moles/Vol] 13 mmol/L Normal 8-15 [facility] Comment on above: Order Comment: Speci men Type: BLOOD SPECIMEN Ordering Facility: [facility] Address: [address] [place] [address] Performed By: #### 2 4321-2 #### [facility] CLIA [id number] [address] [place] [address] [place] Calcium [Mass/Vol] 9.4 mg/dL Normal 8.5-10.2 [facility] Comment on above: Order Comment: Speci men Type: BLOOD SPECIMEN Ordering Facility: [facility] Address: [address] [place] [address] Performed By: #### 2 4321-2 #### [facility] CLIA [id number] [address] [place] [address] [place] Chloride [Moles/Vol] 100 mmol/L Normal 98-107 [facility] Comment on above: Order Comment: Speci men Type: BLOOD SPECIMEN Ordering Facility: [facility] Address: [address] [place] [address] Performed By: #### 2 4321-2 #### [facility] CLIA [id number] [address] [place] [address] [place] CO2 [Moles/Vol] 24 mmol/L Normal 22-30 [facility] Comment on above: Order Comment: Speci men Type: BLOOD SPECIMEN Ordering Facility: [facility] Address: [address] [place] [address] Performed By: #### 2 4321-2 #### [facility] CLIA [id number] [address] [place] [address] [place] Creatinine [Mass/Vol] 0.61 mg/dL Normal 0.58-0.96 [facility] Comment on above: Order Comment: Speci men Type: BLOOD SPECIMEN Ordering Facility: [facility] Address: [address] [place] [address] Performed By: #### 2 4321-2 #### [facility] CLIA [id number] [address] [place] [address] [place] eGFRcr SerPlBld CKD-EPI 2020 88 mL/min/1.73m??? Normal >=60 [facility] Comment on above: Order Comment: Ame lozoya Type: BLOOD SPECIMEN Ordering Facility: [facility] Address: [address] [place] [address] Result Comment: Connie mated Glomerular Filtration Rate (eGFR) is calculated using the 2020 CKD-EPI creatinine equation. This equation utilizes serum creatinine, sex, and age as parameters. The creatinine assay has traceable calibration to isotope dilution-mass spectrometry. Refer to KDIGO guidelines for clinical interpretation. In patients with unstable renal function, e.g. those with acute kidney injury, the eGFR may not accurately reflect actual GFR. Performed By: #### 2 4321-2 #### [facility] CLIA [id number] [address] [place] [address] [place] Glucose [Mass/Vol] 174 mg/dL High 74-99 [facility] Comment on above: Order Comment: Ame lozoya Type: BLOOD SPECIMEN Ordering Facility: [facility] Address: [address] [place] [address] Result Comment: The [place] Diabetes [employer] (ADA) provides guidance for cutoff values for fasting glucose and random glucose. The ADA defines fasting as no caloric intake for at least 8 hours. Fasting plasma glucose results between 100 to 125 mg/dL indicate increased risk for diabetes (prediabetes). Fasting plasma glucose results greater than or equal to 126 mg/dL meet the criteria for diagnosis of diabetes. In the absence of unequivocal hyperglycemia, results should be confirmed by repeat testing. In a patient with classic symptoms of hyperglycemia or hyperglycemic crisis, random plasma glucose results greater than or equal to 200 mg/dL meet the criteria for diagnosis of diabetes. Reference: Standards of Medical Care in Diabetes 2016, [place] [employer]. Diabetes Care. 2016.39(Suppl 1). Performed By: #### 2 4321-2 #### [facility] CLIA [id number] [address] [place] [address] [place] Potassium [Moles/Vol] 3.9 mmol/L Normal 3.7-5.1 [facility] Comment on above: Order Comment: Speci men Type: BLOOD SPECIMEN Ordering Facility: [facility] Address: [address] [place] [address] Performed By: #### 2 4321-2 #### [facility] CLIA [id number] [address] [place] [address] [place] Sodium [Moles/Vol] 137 mmol/L Normal 136-144 [facility] Comment on above: Order Comment: Speci men Type: BLOOD SPECIMEN Ordering Facility: [facility] Address: [address] [place] [address] Performed By: #### 2 4321-2 #### [facility] CLIA [id number] [address] [place] [address] [place] Urea nitrogen [Mass/Vol] 11 mg/dL Normal 7-21 [facility] Comment on above: Order Comment: Speci men Type: BLOOD SPECIMEN Ordering Facility: [facility] Address: [address] [place] [address] Performed By: #### 2 4321-2 #### [facility] CLIA [id number] [address] [place] [address] [place] CBC panel Auto (Bld)on 11-18 Erythrocyte distribution width (RBC) [Ratio] 14.7 % Normal 11.5-15.0 [facility] Comment on above: Order Comment: Speci men Type: BLOOD SPECIMEN Ordering Facility: [facility] Address: [address] [place] [address] Performed By: #### 5 8410-2 #### [facility] CLIA [id number] [address] [place] [address] [place] Hematocrit (Bld) [Volume fraction] 36.7 % Normal 36.0-46.0 [facility] Comment on above: Order Comment: Speci men Type: BLOOD SPECIMEN Ordering Facility: [facility] Address: [address] [place] [address] Performed By: #### 5 8410-2 #### [facility] CLIA [id number] [address] [place] [address] [place] Hemoglobin (Bld) [Mass/Vol] 11.9 g/dL Normal 11.5-15.5 [facility] Comment on above: Order Comment: Speci men Type: BLOOD SPECIMEN Ordering Facility: [facility] Address: [address] [place] [address] Performed By: #### 5 8410-2 #### [facility] CLIA [id number] [address] [place] [address] [place] MCH (RBC) [Entitic mass] 28.5 pg Normal 26.0-34.0 [facility] Comment on above: Order Comment: Speci men Type: BLOOD SPECIMEN Ordering Facility: [facility] Address: [address] [place] [address] Performed By: #### 5 8410-2 #### [facility] CLIA [id number] [address] [place] [address] [place] MCHC (RBC) [Mass/Vol] 32.4 g/dL Normal 30.5-36.0 [facility] Comment on above: Order Comment: Speci men Type: BLOOD SPECIMEN Ordering Facility: [facility] Address: [address] [place] [address] Performed By: #### 5 8410-2 #### [facility] CLIA [id number] [address] [place] [address] [place] MCV (RBC) [Entitic vol] 88.0 fL Normal 80.0-100.0 [facility] Comment on above: Order Comment: Speci men Type: BLOOD SPECIMEN Ordering Facility: [facility] Address: [address] [place] [address] Performed By: #### 5 8410-2 #### [facility] CLIA [id number] [address] [place] [address] [place] Nucleated RBC (Bld) [#/Vol] 10*3/uL Normal <0.01 [facility] Comment on above: Order Comment: Speci men Type: BLOOD SPECIMEN Ordering Facility: [facility] Address: [address] [place] [address] Performed By: #### 5 8410-2 #### [facility] CLIA [id number] [address] [place] [address] [place] Platelet mean volume (Bld) [Entitic vol] 11.8 fL Normal 9.0-12.7 [facility] Comment on above: Order Comment: Speci men Type: BLOOD SPECIMEN Ordering Facility: [facility] Address: [address] [place] [address] Performed By: #### 5 8410-2 #### [facility] CLIA [id number] [address] [place] [address] [place] Platelets (Bld) [#/Vol] 215 10*3/uL Normal 150-400 [facility] Comment on above: Order Comment: Speci men Type: BLOOD SPECIMEN Ordering Facility: [facility] Address: [address] [place] [address] Performed By: #### 5 8410-2 #### [facility] CLIA [id number] [address] [place] [address] [place] RBC (Bld) [#/Vol] 4.17 10*6/uL Normal 3.90-5.20 [facility] Comment on above: Order Comment: Speci men Type: BLOOD SPECIMEN Ordering Facility: [facility] Address: [address] [place] [address] Performed By: #### 5 8410-2 #### [facility] CLIA [id number] [address] [place] [address] [place] WBC (Bld) [#/Vol] 7.82 10*3/uL Normal 3.70-11.00 [facility] Comment on above: Order Comment: Speci men Type: BLOOD SPECIMEN Ordering Facility: [facility] Address: [address] [place] [address] Performed By: #### 5 8410-2 #### [facility] CLIA [id number] STATES OF [facility] Bedside Glucoseon 11-15-2024 FINGERSTICK GLU 133 mg/dL High 74-106 [facility] Comment on above: Result Comment: SHADIA GEMENT OF PATIENT CARE PER NURSING PROTOCOL Performed By: #### L 501.080 ####[facility] [address] [facility] [address] FINGERSTICK GLU 249 mg/dL High 74-106 [facility] Comment on above: Result Comment: SHADIA GEMENT OF PATIENT CARE PER NURSING PROTOCOL Performed By: #### L 501.080 ####[facility] [address] [facility] [address] FINGERSTICK GLU 76 mg/dL Normal 74-106 [facility] Comment on above: Result Comment: SHADIA GEMENT OF PATIENT CARE PER NURSING PROTOCOL Performed By: #### L 501.080 ####[facility] [address] [place] [address] Discharge Instructionon 09-0 Discharge Instruction Normal [facility] Modified Barium Swallow Stud yon 11-15-2024 Modified Barium Swallow Study Normal [facility] Bedside Glucoseon 11-14-2024 FINGERSTICK GLU 174 mg/dL High 74-106 [facility] Comment on above: Result Comment: SHADIA GEMENT OF PATIENT CARE PER NURSING PROTOCOL Performed By: #### L 501.080 ####[facility] [address] [facility] [address] FINGERSTICK GLU 142 mg/dL High 74-106 [facility] Comment on above: Result Comment: SHADIA GEMENT OF PATIENT CARE PER NURSING PROTOCOL Performed By: #### L 501.080 ####[facility] [address] [facility] [address] FINGERSTICK GLU 188 mg/dL High 74-106 [facility] Comment on above: Result Comment: SHADIA GEMENT OF PATIENT CARE PER NURSING PROTOCOL Performed By: #### L 501.080 ####[facility] [address] [place], [address] FINGERSTICK GLU 123 mg/dL High 74-106 [facility] Comment on above: Result Comment: SHADIA BLANCO OF PATIENT CARE PER NURSING PROTOCOL Performed By: #### L 501.080 ####[facility] [address] [place], [address] Basic Metabolic Profile (BMP )on 11-13-2024 BUN/CRE 10.9 RATIO Normal 10-20 [facility] Comment on above: Order Comment: Comme nts: NPO at [place] prior to lipid panel Performed By: #### L 500.4100, L100.0100, L500.2500, L501.9520, L501.5200 ####[facility] [address] [place], [address] Calcium [Mass/Vol] 9.8 mg/dL Normal 7.6-11.0 [facility] Comment on above: Order Comment: Comme nts: NPO at [place] prior to lipid panel Performed By: #### L 500.4100, L100.0100, L500.2500, L501.9520, L501.5200 ####[facility] [address] [place], [address] Chloride [Moles/Vol] 102 mmol/L Normal 98-108 [facility] Comment on above: Order Comment: Comme nts: NPO at [place] prior to lipid panel Performed By: #### L 500.4100, L100.0100, L500.2500, L501.9520, L501.5200 ####[facility] [address] [place], [address] CO2 [Moles/Vol] 24.2 mmol/L Normal 21.0-32.0 [facility] Comment on above: Order Comment: Comme nts: NPO at [place] prior to lipid panel Performed By: #### L 500.4100, L100.0100, L500.2500, L501.9520, L501.5200 ####[facility] [address] [place], [address] Creatinine [Mass/Vol] 0.60 mg/dL Low 0.70-1.20 [facility] Comment on above: Order Comment: Comme nts: NPO at [place] prior to lipid panel Performed By: #### L 500.4100, L100.0100, L500.2500, L501.9520, L501.5200 ####[facility] [address] [place], [address] ECRCL 48.26 ml/min Low 50-250 [facility] Comment on above: Order Comment: Comme nts: NPO at [place] prior to lipid panel Performed By: #### L 500.4100, L100.0100, L500.2500, L501.9520, L501.5200 ####[facility] [address] [place], [address] GAP 12 Normal 5-15 [facility] Comment on above: Order Comment: Comme nts: NPO at [place] prior to lipid panel Performed By: #### L 500.4100, L100.0100, L500.2500, L501.9520, L501.5200 ####[facility] [address] [place], [address] GFR/1.73 sq M.predicted among non-blacks MDRD (S/P/Bld) [Vol rate/Area] 88 mL/min/{1.73_m2} Normal >60 [facility] Comment on above: Order Comment: Comme nts: NPO at [place] prior to lipid panel Result Comment: mL/m in/1.73m2 CKD-EPI Creatinine Equation (2020) Performed By: #### L 500.4100, L100.0100, L500.2500, L501.9520, L501.5200 ####[facility] [address] [place], [address] Glucose [Mass/Vol] 161 mg/dL High 70-99 [facility] Comment on above: Order Comment: Comme nts: NPO at [place] prior to lipid panel Performed By: #### L 500.4100, L100.0100, L500.2500, L501.9520, L501.5200 ####[facility] [address] [place], [address] Potassium [Moles/Vol] 3.9 mmol/L Normal 3.3-5.1 [facility] Comment on above: Order Comment: Comme nts: NPO at [place] prior to lipid panel Performed By: #### L 500.4100, L100.0100, L500.2500, L501.9520, L501.5200 ####[facility] [address] [place], [address] Sodium [Moles/Vol] 138 mmol/L Normal 133-145 [facility] Comment on above: Order Comment: Comme nts: NPO at [place] prior to lipid panel Performed By: #### L 500.4100, L100.0100, L500.2500, L501.9520, L501.5200 ####[facility] [address] [place], [address] Urea nitrogen [Mass/Vol] 7 mg/dL Normal 4-19 [facility] Comment on above: Order Comment: Comme nts: NPO at [place] prior to lipid panel Performed By: #### L 500.4100, L100.0100, L500.2500, L501.9520, L501.5200 ####[facility] [address] [place], [address] Bedside Glucoseon 11-13-2024 FINGERSTICK GLU 147 mg/dL High 74-106 [facility] Comment on above: Result Comment: SHADIA MALIHAENT OF PATIENT CARE PER NURSING PROTOCOL Performed By: #### L 501.080 ####[facility] [address] [place], [address] FINGERSTICK GLU 170 mg/dL High 74-106 [facility] Comment on above: Result Comment: SHADIA GEMENT OF PATIENT CARE PER NURSING PROTOCOL Performed By: #### L 501.080 ####[facility] [address] [place], [address] FINGERSTICK GLU 233 mg/dL High [address] [facility] Comment on above: Result Comment: SHADIA GEMENT OF PATIENT CARE PER NURSING PROTOCOL Performed By: #### L 501.080 ####[facility] [address] [place], [address] FINGERSTICK GLU 159 mg/dL High -106 [facility] Comment on above: Result Comment: SHADIA GEMENT OF PATIENT CARE PER NURSING PROTOCOL Performed By: #### L 501.080 ####[facility] [address] [place], [address] FINGERSTICK GLU 141 mg/dL High -106 [facility] Comment on above: Result Comment: SHADIA GEMENT OF PATIENT CARE PER NURSING PROTOCOL Performed By: #### L 501.080 ####[facility] [address] [place], [address] CBC W/Diff, Automatedon 09-0 6-2024 Absolute Lymph 2.46 X10 3/uL Normal 0.83-4.51 [facility] Comment on above: Performed By: #### L 500.4100, L100.0100, L500.2500, L501.9520, L501.5200 ####[facility] [address] [place], [address] Absolute Neut 4.4 X10 3/uL Normal 2.0-7.7 [facility] Comment on above: Performed By: #### L 500.4100, L100.0100, L500.2500, L501.9520, L501.5200 ####[facility] [address] [place], [address] Basophils/100 WBC (Bld) 1.0 % Normal 0-1 [facility] Comment on above: Performed By: #### L 500.4100, L100.0100, L500.2500, L501.9520, L501.5200 ####[facility] [address] [place], [address] Eosinophils/100 WBC (Bld) 3.3 % Normal 0-5 [facility] Comment on above: Performed By: #### L 500.4100, L100.0100, L500.2500, L501.9520, L501.5200 ####[facility] [address] [place], [address] Erythrocyte distribution width (RBC) [Ratio] 14.5 % Normal 11.6-14.6 [facility] Comment on above: Performed By: #### L 500.4100, L100.0100, L500.2500, L501.9520, L501.5200 ####[facility] [address] [place], [address] Hematocrit (Bld) [Volume fraction] 36.6 % Low 37-47 [facility] Comment on above: Performed By: #### L 500.4100, L100.0100, L500.2500, L501.9520, L501.5200 ####[facility] [address] [place], [address] Hemoglobin (Bld) [Mass/Vol] 12.1 g/dL Normal 12.0-15.0 [facility] Comment on above: Performed By: #### L 500.4100, L100.0100, L500.2500, L501.9520, L501.5200 ####[facility] [address] [place], [address] IG% 0.300 Normal 0.0-0.9 [facility] Comment on above: Result Comment: IG% - Immature Granulocytes (promyelocytes, myelocytes andmetamyelocytes) > 1% indicates that a LEFT SHIFT is Present. Performed By: #### L 500.4100, L100.0100, L500.2500, L501.9520, L501.5200 ####[facility] [address] [place], [address] Lymphocytes/100 WBC (Bld) 31.3 % Normal 19-41 [facility] Comment on above: Performed By: #### L 500.4100, L100.0100, L500.2500, L501.9520, L501.5200 ####[facility] [address] [place], [address] MCH (RBC) [Entitic mass] 28.5 pg Normal 27.0-32.0 [facility] Comment on above: Performed By: #### L 500.4100, L100.0100, L500.2500, L501.9520, L501.5200 ####[facility] [address] [place], [address] MCHC (RBC) [Mass/Vol] 33.1 g/dL Normal 32-36 [facility] Comment on above: Performed By: #### L 500.4100, L100.0100, L500.2500, L501.9520, L501.5200 ####[facility] [address] [place], [address] MCV (RBC) [Entitic vol] 86.1 fL Normal 81-99 [facility] Comment on above: Performed By: #### L 500.4100, L100.0100, L500.2500, L501.9520, L501.5200 ####[facility] [address] [place], [address] Monocytes/100 WBC (Bld) 8.3 % Normal 0-10 [facility] Comment on above: Performed By: #### L 500.4100, L100.0100, L500.2500, L501.9520, L501.5200 ####[facility] [address] [place], [address] Neutrophils/100 WBC (Bld) 55.8 % Normal 47-70 [facility] Comment on above: Performed By: #### L 500.4100, L100.0100, L500.2500, L501.9520, L501.5200 ####[facility] [address] [place], [address] Nucleated RBC (Bld) [#/Vol] 0 10*3/uL Normal 0-5 [facility] Comment on above: Performed By: #### L 500.4100, L100.0100, L500.2500, L501.9520, L501.5200 ####[facility] [address] [place], [address] Platelet mean volume (Bld) [Entitic vol] 11.1 fL Normal 6.2-12.0 [facility] Comment on above: Performed By: #### L 500.4100, L100.0100, L500.2500, L501.9520, L501.5200 ####[facility] [address] [place], [address] Platelets (Bld) [#/Vol] 211 10*3/uL Normal 150-450 [facility] Comment on above: Performed By: #### L 500.4100, L100.0100, L500.2500, L501.9520, L501.5200 ####[facility] [address] [place], [address] RBC (Bld) [#/Vol] 4.25 10*6/uL Normal 4.2-5.4 [facility] Comment on above: Performed By: #### L 500.4100, L100.0100, L500.2500, L501.9520, L501.5200 ####[facility] [address] [place], [address] RDW SD 45.2 fl High 35.1-43.9 [facility] Comment on above: Performed By: #### L 500.4100, L100.0100, L500.2500, L501.9520, L501.5200 ####[facility] [address] [place], [address] WBC (Bld) [#/Vol] 7.9 10*3/uL Normal 4.4-11.0 [facility] Comment on above: Performed By: #### L 500.4100, L100.0100, L500.2500, L501.9520, L501.5200 ####[facility] [address] [place], [address] Lipid Profileon 11-13-2024 CHOL:HDL 2.54 Normal [facility] Comment on above: Order Comment: Comme nts: NPO at [place] prior to lipid panel Performed By: #### L 500.4100, L100.0100, L500.2500, L501.9520, L501.5200 ####[facility] [address] [place], [address] Cholesterol [Mass/Vol] 126 mg/dL Normal <=200 [facility] Comment on above: Order Comment: Comme nts: NPO at [place] prior to lipid panel Result Comment: Chol esterol level, Desirable <200 mg/dLBorderline high cholesterol 200-239 mg/dLHigh cholesterol >=240 mg/dLRecommendations of the NCEP Adult Treatment Panel for thefollowing risk-cutoff thresholds for the [place] Americanpopulation. Performed By: #### L 500.4100, L100.0100, L500.2500, L501.9520, L501.5200 ####[facility] [address] [place], [address] Cholesterol in HDL [Mass/Vol] 50 mg/dL Normal [facility] Comment on above: Order Comment: Comme nts: NPO at [place] prior to lipid panel Result Comment: [place] onal Cholesterol Education Program (NCEP) guidelines:<40 mg/dL: Low HDL-cholesterol (major risk factor for CHD)>= 60 mg/dL: High HDL-cholesterol (negative risk factor forCHD)HDL-cholesterol is affected by a number of factors, e.g.smoking, exercise, hormones, sex and age. Performed By: #### L 500.4100, L100.0100, L500.2500, L501.9520, L501.5200 ####[facility] [address] [place], [address] Cholesterol in LDL [Mass/Vol] 47 mg/dL Normal [facility] Comment on above: Order Comment: Comme nts: NPO at [place] prior to lipid panel Result Comment: Bord cymczk=075-683 mg/dL Higher Bwkn=963 mg/dL or greaterFriedwald Equation for LDL-C Performed By: #### L 500.4100, L100.0100, L500.2500, L501.9520, L501.5200 ####[facility] [address] [place], [address] Cholesterol in VLDL [Mass/Vol] 29 mg/dL Normal 5-40 [facility] Comment on above: Order Comment: Comme nts: NPO at [place] prior to lipid panel Performed By: #### L 500.4100, L100.0100, L500.2500, L501.9520, L501.5200 ####[facility] [address] [place], [address] Triglyceride [Mass/Vol] 146 mg/dL Normal [facility] Comment on above: Order Comment: Comme nts: NPO at [place] prior to lipid panel Result Comment: The drugs N-Acetylcysteine and Metamizole may falselydepress this assay.Normal range: <150 mg/dLBorderline High: 150-199 mg/dLHigh: 200-499 mg/dLVery High: >500 mg/dL Performed By: #### L 500.4100, L100.0100, L500.2500, L501.9520, L501.5200 ####[facility] [address] [place], [address] Magnesiumon 11-13-2024 Magnesium [Mass/Vol] 1.8 mg/dL Normal 1.5-2.2 [facility] Comment on above: Order Comment: Comme nts: NPO at [place] prior to lipid panel Performed By: #### L 500.4100, L100.0100, L500.2500, L501.9520, L501.5200 ####[facility] [address] [place], [address] Thyroid Stim Hormone (TSH)on 11-13-2024 TSH 2.280 uIU/mL Normal 0.300-4.200 [facility] Comment on above: Order Comment: Comme nts: NPO at [place] prior to lipid panel Performed By: #### L 500.4100, L100.0100, L500.2500, L501.9520, L501.5200 ####[facility] [address] [place], [address] 12 Lead EKGon 11-12-2024 12 Lead EKG Normal [facility] Ammoniaon 11-12-2024 Ammonia (P) [Moles/Vol] 20.0 umol/L Normal 11-51 [facility] Comment on above: Performed By: #### L 503.5510, L100.0100, L500.4050 ####[facility] [address] [place], [address] Bedside Glucoseon 11-12-2024 FINGERSTICK GLU 233 mg/dL High 74-106 [facility] Comment on above: Result Comment: SHADIA BLANCO OF PATIENT CARE PER NURSING PROTOCOL Performed By: #### L 501.080 ####[facility] [address] [place], [address] Brain without Contraston Brain without Contrast Normal [facility] Brain/Head without Contrasto n 11-12-2024 Brain/Head without Contrast Normal [facility] CBC W/Diff, Automatedon Absolute Lymph 1.75 X10 3/uL Normal 0.83-4.51 [facility] Comment on above: Performed By: #### L 503.5510, L100.0100, L500.4050 ####[facility] [address] [place], [address] Absolute Neut 4.9 X10 3/uL Normal 2.0-7.7 [facility] Comment on above: Performed By: #### L 503.5510, L100.0100, L500.4050 ####[facility] [address] [place], [address] Basophils/100 WBC (Bld) 1.0 % Normal 0-1 [facility] Comment on above: Performed By: #### L 503.5510, L100.0100, L500.4050 ####[facility] [address] [place], [address] Eosinophils/100 WBC (Bld) 2.3 % Normal 0-5 [facility] Comment on above: Performed By: #### L 503.5510, L100.0100, L500.4050 ####[facility] [address] [place], [address] Erythrocyte distribution width (RBC) [Ratio] 14.3 % Normal 11.6-14.6 [facility] Comment on above: Performed By: #### L 503.5510, L100.0100, L500.4050 ####[facility] [address] [place], [address] Hematocrit (Bld) [Volume fraction] 36.8 % Low 37-47 [facility] Comment on above: Performed By: #### L 503.5510, L100.0100, L500.4050 ####[facility] [address] [place], [address] Hemoglobin (Bld) [Mass/Vol] 12.2 g/dL Normal 12.0-15.0 [facility] Comment on above: Performed By: #### L 503.5510, L100.0100, L500.4050 ####[facility] [address] [place], [address] IG% 0.100 Normal 0.0-0.9 [facility] Comment on above: Result Comment: IG% - Immature Granulocytes (promyelocytes, myelocytes andmetamyelocytes) > 1% indicates that a LEFT SHIFT is Present. Performed By: #### L 503.5510, L100.0100, L500.4050 ####[facility] [address] [place], [address] Lymphocytes/100 WBC (Bld) 23.8 % Normal 19-41 [facility] Comment on above: Performed By: #### L 503.5510, L100.0100, L500.4050 ####[facility] [address] [place], [address] MCH (RBC) [Entitic mass] 28.9 pg Normal 27.0-32.0 [facility] Comment on above: Performed By: #### L 503.5510, L100.0100, L500.4050 ####[facility] [address] [place], [address] MCHC (RBC) [Mass/Vol] 33.2 g/dL Normal 32-36 [facility] Comment on above: Performed By: #### L 503.5510, L100.0100, L500.4050 ####[facility] [address] [place], [address] MCV (RBC) [Entitic vol] 87.2 fL Normal 81-99 [facility] Comment on above: Performed By: #### L 503.5510, L100.0100, L500.4050 ####[facility] [address] [place], [address] Monocytes/100 WBC (Bld) 6.5 % Normal 0-10 [facility] Comment on above: Performed By: #### L 503.5510, L100.0100, L500.4050 ####[facility] [address] [place], [address] Neutrophils/100 WBC (Bld) 66.3 % Normal 47-70 [facility] Comment on above: Performed By: #### L 503.5510, L100.0100, L500.4050 ####[facility] [address] [place], [address] Nucleated RBC (Bld) [#/Vol] 0 10*3/uL Normal 0-5 [facility] Comment on above: Performed By: #### L 503.5510, L100.0100, L500.4050 ####[facility] [address] [place], [address] Platelet mean volume (Bld) [Entitic vol] 11.5 fL Normal 6.2-12.0 [facility] Comment on above: Performed By: #### L 503.5510, L100.0100, L500.4050 ####[facility] [address] [place], [address] Platelets (Bld) [#/Vol] 217 10*3/uL Normal 150-450 [facility] Comment on above: Performed By: #### L 503.5510, L100.0100, L500.4050 ####[facility] [address] [place], [address] RBC (Bld) [#/Vol] 4.22 10*6/uL Normal 4.2-5.4 [facility] Comment on above: Performed By: #### L 503.5510, L100.0100, L500.4050 ####[facility] [address] [place], [address] RDW SD 45.2 fl High 35.1-43.9 [facility] Comment on above: Performed By: #### L 503.5510, L100.0100, L500.4050 ####[facility] [id number] [place], [address] WBC (Bld) [#/Vol] 7.4 10*3/uL Normal 4.4-11.0 [facility] Comment on above: Performed By: #### L 503.5510, L100.0100, L500.4050 ####[facility] [address] [place], [address] CTA Head AND Neck W/ Contras ton 11-12-2024 CTA Head AND Neck W/ Contrast Normal [facility] Chest PA and Lateralon 11-12 Chest PA and Lateral Normal [facility] Comprehensive Metabolic Prof ilon 11-12-2024 Albumin [Mass/Vol] 4.4 g/dL Normal 3.4-4.8 [facility] Comment on above: Performed By: #### L 503.5510, L100.0100, L500.4050 ####[facility] [address] [place], [address] Albumin/Globulin [Mass ratio] 1.6 {ratio} Normal 0.9-2.4 [facility] Comment on above: Performed By: #### L 503.5510, L100.0100, L500.4050 ####[facility] [address] [place], [address] ALK PHOS 77 U/L Normal 35-104 [facility] Comment on above: Performed By: #### L 503.5510, L100.0100, L500.4050 ####[facility] [address] [place], [address] ALT [Catalytic activity/Vol] 23 U/L Normal <=34 [facility] Comment on above: Performed By: #### L 503.5510, L100.0100, L500.4050 ####[facility] [address] [place], [address] AST [Catalytic activity/Vol] 30 U/L Normal <=31 [facility] Comment on above: Performed By: #### L 503.5510, L100.0100, L500.4050 ####[facility] [address] [place], [address] Bilirubin [Mass/Vol] 0.63 mg/dL Normal 0.00-1.30 [facility] Comment on above: Performed By: #### L 503.5510, L100.0100, L500.4050 ####[facility] [address] [place], [address] BUN/CRE 11.0 RATIO Normal 10-20 [facility] Comment on above: Performed By: #### L 503.5510, L100.0100, L500.4050 ####[facility] [address] [place], [address] Calcium [Mass/Vol] 9.8 mg/dL Normal 7.6-11.0 [facility] Comment on above: Performed By: #### L 503.5510, L100.0100, L500.4050 ####[facility] [address] [place], [address] Chloride [Moles/Vol] 102 mmol/L Normal 98-108 [facility] Comment on above: Performed By: #### L 503.5510, L100.0100, L500.4050 ####[facility] [address] [place], [address] CO2 [Moles/Vol] 25.6 mmol/L Normal 21.0-32.0 [facility] Comment on above: Performed By: #### L 503.5510, L100.0100, L500.4050 ####[facility] [address] [place], [address] Creatinine [Mass/Vol] 0.67 mg/dL Low 0.70-1.20 [facility] Comment on above: Performed By: #### L 503.5510, L100.0100, L500.4050 ####[facility] [address] [place], [address] GAP 11 Normal 5-15 [facility] Comment on above: Performed By: #### L 503.5510, L100.0100, L500.4050 ####[facility] [address] [place], [address] GFR/1.73 sq M.predicted among non-blacks MDRD (S/P/Bld) [Vol rate/Area] 86 mL/min/{1.73_m2} Normal >60 [facility] Comment on above: Result Comment: mL/m in/1.73m2 CKD-EPI Creatinine Equation (2020) Performed By: #### L 503.5510, L100.0100, L500.4050 ####[facility] [address] [place], [address] Globulin (S) [Mass/Vol] 2.8 g/dL Normal 2.2-4.2 [facility] Comment on above: Performed By: #### L 503.5510, L100.0100, L500.4050 ####[facility] [address] [place], [address] Glucose [Mass/Vol] 214 mg/dL High 70-99 [facility] Comment on above: Performed By: #### L 503.5510, L100.0100, L500.4050 ####[facility] [address] [place], [address] Potassium [Moles/Vol] 4.1 mmol/L Normal 3.3-5.1 [facility] Comment on above: Performed By: #### L 503.5510, L100.0100, L500.4050 ####[facility] [address] [place], [address] Sodium [Moles/Vol] 138 mmol/L Normal 133-145 [facility] Comment on above: Performed By: #### L 503.5510, L100.0100, L500.4050 ####[facility] [address] [place], [address] T PROT 7.2 g/dL Normal 5.9-8.4 [facility] Comment on above: Performed By: #### L 503.5510, L100.0100, L500.4050 ####[facility] [address] [place], [address] Urea nitrogen [Mass/Vol] 7 mg/dL Normal 4-19 [facility] Comment on above: Performed By: #### L 503.5510, L100.0100, L500.4050 ####[facility] [address] [place], [address] Echo Complete W/ Contraston 11-12-2024 Echo Complete W/ Contrast Normal [facility] Emergency Department Summary on 11-12-2024 Emergency Department Summary Normal [facility] H AND P Exam - Hospitaliston 11-12-2024 H&P Exam - Hospitalist Normal [facility] L501.4021on 11-12-2024 Trop T High Sen 16 ng/L High <=14 [facility] Comment on above: Performed By: #### L 501.4021 ####[facility] [address] [place], [address] Troponin T HS 2 HRon 025 Trop T High Sen 14 ng/L Normal <=14 [facility] Comment on above: Performed By: #### L 499.0042 ####[facility] [address] [place], [address] Troponin T HS 4 HRon 025 Trop T High Sen 16 ng/L High <=14 [facility] Comment on above: Performed By: #### L 499.0043 ####[facility] [address] [place], [address] Urinalysis, Completeon 11-12 EPI,SQUAMOUS 0-5 SEEN Normal 5-10 [facility] Comment on above: Order Comment: CLEAN CATCH Performed By: #### L 400.0001 ####[facility] [address] [place], [address] WBC 0-5 SEEN Normal 0-5 [facility] Comment on above: Order Comment: CLEAN CATCH Performed By: #### L 400.0001 ####[facility] [address] [place], [address] BACTERIA 0 SEEN Normal None Seen [facility] Comment on above: Order Comment: CLEAN CATCH Performed By: #### L 400.0001 ####[facility] [address] [place], [address] Mucus Ql (Urine sed) 0 SEEN Normal [facility] Comment on above: Order Comment: CLEAN CATCH Performed By: #### L 400.0001 ####[facility] [address] [place], [address] RBC 0 SEEN Normal 0-5 [facility] Comment on above: Order Comment: CLEAN CATCH Performed By: #### L 400.0001 ####[facility] [address] [place], [address] MR/PAT.ANEon 11-04-2024 MR/PAT.ANE Normal [facility] MR/BMS.BPon 10-28-2024 MR/BMS.BP Normal [facility] Surgery Visit Reporton 10-25 Surgery Visit Report Normal [facility] Abdomen Limitedon 10-06-2024 Abdomen Limited Normal [facility] CBC W/Diff, Automatedon 09-08 Absolute Lymph 2.14 X10 3/uL Normal 0.83-4.51 [facility] Comment on above: Performed By: #### L 100.0100, L503.6030, L503.0106, L502.0250, L503.6550, L500.4100, L506.1001, L501.9985, L500.4050, L506.0200 ####[facility] [address] [place], [place], [phone](103) Absolute Neut 2.5 X10 3/uL Normal 2.0-7.7 [facility] Comment on above: Performed By: #### L 100.0100, L503.6030, L503.0106, L502.0250, L503.6550, L500.4100, L506.1001, L501.9985, L500.4050, L506.0200 ####[facility] [address] [place], [place], [phone](956) Basophils/100 WBC (Bld) 1.3 % High 0-1 [facility] Comment on above: Performed By: #### L 100.0100, L503.6030, L503.0106, L502.0250, L503.6550, L500.4100, L506.1001, L501.9985, L500.4050, L506.0200 ####[facility] [address] [place], [place], [phone] Eosinophils/100 WBC (Bld) 5.5 % High 0-5 [facility] Comment on above: Performed By: #### L 100.0100, L503.6030, L503.0106, L502.0250, L503.6550, L500.4100, L506.1001, L501.9985, L500.4050, L506.0200 ####[facility] [address] [facility] [place], [address] Erythrocyte distribution width (RBC) [Ratio] 13.8 % Normal 11.6-14.6 [facility] Comment on above: Performed By: #### L 100.0100, L503.6030, L503.0106, L502.0250, L503.6550, L500.4100, L506.1001, L501.9985, L500.4050, L506.0200 ####[facility] [address] [facility] [place], [address] Hematocrit (Bld) [Volume fraction] 36.7 % Low 37-47 [facility] Comment on above: Performed By: #### L 100.0100, L503.6030, L503.0106, L502.0250, L503.6550, L500.4100, L506.1001, L501.9985, L500.4050, L506.0200 ####[facility] [address] [facility] [place], [place], [phone] Hemoglobin (Bld) [Mass/Vol] 11.7 g/dL Low 12.0-15.0 [facility] Comment on above: Performed By: #### L 100.0100, L503.6030, L503.0106, L502.0250, L503.6550, L500.4100, L506.1001, L501.9985, L500.4050, L506.0200 ####[facility] [address] [facility] [place], [place], [phone] IG% 0.200 Normal 0.0-0.9 [facility] Comment on above: Result Comment: IG% - Immature Granulocytes (promyelocytes, myelocytes andmetamyelocytes) > 1% indicates that a LEFT SHIFT is Present. Performed By: #### L 100.0100, L503.6030, L503.0106, L502.0250, L503.6550, L500.4100, L506.1001, L501.9985, L500.4050, L506.0200 ####[facility] [address] [place], [address] Lymphocytes/100 WBC (Bld) 39.5 % Normal 19-41 [facility] Comment on above: Performed By: #### L 100.0100, L503.6030, L503.0106, L502.0250, L503.6550, L500.4100, L506.1001, L501.9985, L500.4050, L506.0200 ####[facility] [address] [place], [address] MCH (RBC) [Entitic mass] 28.5 pg Normal 27.0-32.0 [facility] Comment on above: Performed By: #### L 100.0100, L503.6030, L503.0106, L502.0250, L503.6550, L500.4100, L506.1001, L501.9985, L500.4050, L506.0200 ####[facility] [address] [facility] [place], [address] MCHC (RBC) [Mass/Vol] 31.9 g/dL Low 32-36 [facility] Comment on above: Performed By: #### L 100.0100, L503.6030, L503.0106, L502.0250, L503.6550, L500.4100, L506.1001, L501.9985, L500.4050, L506.0200 ####[facility] [address] [facility] [place], [address] MCV (RBC) [Entitic vol] 89.5 fL Normal 81-99 [facility] Comment on above: Performed By: #### L 100.0100, L503.6030, L503.0106, L502.0250, L503.6550, L500.4100, L506.1001, L501.9985, L500.4050, L506.0200 ####[facility] [address] [facility] [place], [address] Monocytes/100 WBC (Bld) 7.7 % Normal 0-10 [facility] Comment on above: Performed By: #### L 100.0100, L503.6030, L503.0106, L502.0250, L503.6550, L500.4100, L506.1001, L501.9985, L500.4050, L506.0200 ####[facility] [address] [facility] [place], [address] Neutrophils/100 WBC (Bld) 45.8 % Low 47-70 [facility] Comment on above: Performed By: #### L 100.0100, L503.6030, L503.0106, L502.0250, L503.6550, L500.4100, L506.1001, L501.9985, L500.4050, L506.0200 ####[facility] [address] [facility] [place], [address] Nucleated RBC (Bld) [#/Vol] 0 10*3/uL Normal 0-5 [facility] Comment on above: Performed By: #### L 100.0100, L503.6030, L503.0106, L502.0250, L503.6550, L500.4100, L506.1001, L501.9985, L500.4050, L506.0200 ####[facility] [address] [facility] [place], [address] Platelet mean volume (Bld) [Entitic vol] 11.8 fL Normal 6.2-12.0 [facility] Comment on above: Performed By: #### L 100.0100, L503.6030, L503.0106, L502.0250, L503.6550, L500.4100, L506.1001, L501.9985, L500.4050, L506.0200 ####[facility] [address] [place], [address] Platelets (Bld) [#/Vol] 192 10*3/uL Normal 150-450 [facility] Comment on above: Performed By: #### L 100.0100, L503.6030, L503.0106, L502.0250, L503.6550, L500.4100, L506.1001, L501.9985, L500.4050, L506.0200 ####[facility] [address] [place], [address] RBC (Bld) [#/Vol] 4.10 10*6/uL Low 4.2-5.4 [facility] Comment on above: Performed By: #### L 100.0100, L503.6030, L503.0106, L502.0250, L503.6550, L500.4100, L506.1001, L501.9985, L500.4050, L506.0200 ####[facility] [address] [place], [address] RDW SD 45.2 fl High 35.1-43.9 [facility] Comment on above: Performed By: #### L 100.0100, L503.6030, L503.0106, L502.0250, L503.6550, L500.4100, L506.1001, L501.9985, L500.4050, L506.0200 ####[facility] [address] [place], [address] WBC (Bld) [#/Vol] 5.4 10*3/uL Normal 4.4-11.0 [facility] Comment on above: Performed By: #### L 100.0100, L503.6030, L503.0106, L502.0250, L503.6550, L500.4100, L506.1001, L501.9985, L500.4050, L506.0200 ####[facility] [address] [place], [address] Comprehensive Metabolic Prof ilon 09-30-2024 Albumin [Mass/Vol] 4.1 g/dL Normal 3.4-4.8 [facility] Comment on above: Performed By: #### L 100.0100, L503.6030, L503.0106, L502.0250, L503.6550, L500.4100, L506.1001, L501.9985, L500.4050, L506.0200 ####[facility] [address] [place], [place], [phone] Albumin/Globulin [Mass ratio] 1.6 {ratio} Normal 0.9-2.4 [facility] Comment on above: Performed By: #### L 100.0100, L503.6030, L503.0106, L502.0250, L503.6550, L500.4100, L506.1001, L501.9985, L500.4050, L506.0200 ####[facility] [address] [place], [place], [phone] ALK PHOS 82 U/L Normal 35-104 [facility] Comment on above: Performed By: #### L 100.0100, L503.6030, L503.0106, L502.0250, L503.6550, L500.4100, L506.1001, L501.9985, L500.4050, L506.0200 ####[facility] [address] [place], [place], [phone] ALT [Catalytic activity/Vol] 26 U/L Normal <=34 [facility] Comment on above: Performed By: #### L 100.0100, L503.6030, L503.0106, L502.0250, L503.6550, L500.4100, L506.1001, L501.9985, L500.4050, L506.0200 ####[facility] [address] [place], [place], [phone](513) AST [Catalytic activity/Vol] 29 U/L Normal <=31 [facility] Comment on above: Performed By: #### L 100.0100, L503.6030, L503.0106, L502.0250, L503.6550, L500.4100, L506.1001, L501.9985, L500.4050, L506.0200 ####[facility] [address] [place], [place], [phone](330) Bilirubin [Mass/Vol] 0.35 mg/dL Normal 0.00-1.30 [facility] Comment on above: Performed By: #### L 100.0100, L503.6030, L503.0106, L502.0250, L503.6550, L500.4100, L506.1001, L501.9985, L500.4050, L506.0200 ####[facility] [address] [place], [place], [phone](067) BUN/CRE 10.4 RATIO Normal 10-20 [facility] Comment on above: Performed By: #### L 100.0100, L503.6030, L503.0106, L502.0250, L503.6550, L500.4100, L506.1001, L501.9985, L500.4050, L506.0200 ####[facility] [address] [place], [place], [phone](751) Calcium [Mass/Vol] 9.5 mg/dL Normal 7.6-11.0 [facility] Comment on above: Performed By: #### L 100.0100, L503.6030, L503.0106, L502.0250, L503.6550, L500.4100, L506.1001, L501.9985, L500.4050, L506.0200 ####[facility] [address] [place], [place], [phone](828) Chloride [Moles/Vol] 103 mmol/L Normal 98-108 [facility] Comment on above: Performed By: #### L 100.0100, L503.6030, L503.0106, L502.0250, L503.6550, L500.4100, L506.1001, L501.9985, L500.4050, L506.0200 ####[facility] [address] [place], [place], [phone](015) CO2 [Moles/Vol] 26.3 mmol/L Normal 21.0-32.0 [facility] Comment on above: Performed By: #### L 100.0100, L503.6030, L503.0106, L502.0250, L503.6550, L500.4100, L506.1001, L501.9985, L500.4050, L506.0200 ####[facility] [address] [place], [place], [phone](510) Creatinine [Mass/Vol] 0.68 mg/dL Low 0.70-1.20 [facility] Comment on above: Performed By: #### L 100.0100, L503.6030, L503.0106, L502.0250, L503.6550, L500.4100, L506.1001, L501.9985, L500.4050, L506.0200 ####[facility] [address] [place], [place], [phone](907) GAP 12 Normal 5-15 [facility] Comment on above: Performed By: #### L 100.0100, L503.6030, L503.0106, L502.0250, L503.6550, L500.4100, L506.1001, L501.9985, L500.4050, L506.0200 ####[facility] [address] [place], [address] GFR/1.73 sq M.predicted among non-blacks MDRD (S/P/Bld) [Vol rate/Area] 85 mL/min/{1.73_m2} Normal >60 [facility] Comment on above: Result Comment: mL/m in/1.73m2 CKD-EPI Creatinine Equation (2020) Performed By: #### L 100.0100, L503.6030, L503.0106, L502.0250, L503.6550, L500.4100, L506.1001, L501.9985, L500.4050, L506.0200 ####[facility] [address] [place], [address] Globulin (S) [Mass/Vol] 2.6 g/dL Normal 2.2-4.2 [facility] Comment on above: Performed By: #### L 100.0100, L503.6030, L503.0106, L502.0250, L503.6550, L500.4100, L506.1001, L501.9985, L500.4050, L506.0200 ####[facility] [address] [place], [address] Glucose [Mass/Vol] 205 mg/dL High 70-99 [facility] Comment on above: Performed By: #### L 100.0100, L503.6030, L503.0106, L502.0250, L503.6550, L500.4100, L506.1001, L501.9985, L500.4050, L506.0200 ####[facility] [address] [place], [address] Potassium [Moles/Vol] 4.0 mmol/L Normal 3.3-5.1 [facility] Comment on above: Performed By: #### L 100.0100, L503.6030, L503.0106, L502.0250, L503.6550, L500.4100, L506.1001, L501.9985, L500.4050, L506.0200 ####[facility] [address] [place], [address] Sodium [Moles/Vol] 141 mmol/L Normal 133-145 [facility] Comment on above: Performed By: #### L 100.0100, L503.6030, L503.0106, L502.0250, L503.6550, L500.4100, L506.1001, L501.9985, L500.4050, L506.0200 ####[facility] [address] [place], [place], [phone](968) T PROT 6.7 g/dL Normal 5.9-8.4 [facility] Comment on above: Performed By: #### L 100.0100, L503.6030, L503.0106, L502.0250, L503.6550, L500.4100, L506.1001, L501.9985, L500.4050, L506.0200 ####[facility] [address] [place], [address] Urea nitrogen [Mass/Vol] 7 mg/dL Normal 4-19 [facility] Comment on above: Performed By: #### L 100.0100, L503.6030, L503.0106, L502.0250, L503.6550, L500.4100, L506.1001, L501.9985, L500.4050, L506.0200 ####[facility] [address] [place], [place], [phone](345) Ferritinon 09-30-2024 Ferritin [Mass/Vol] 38 ng/mL Normal 22-378 [facility] Comment on above: Performed By: #### L 100.0100, L503.6030, L503.0106, L502.0250, L503.6550, L500.4100, L506.1001, L501.9985, L500.4050, L506.0200 ####[facility] [address] [place], [place], [phone] Folates,Serum (Folic Acid)on 09-30-2024 FOLATES,SERUM 18.80 ng/mL Normal 4.60-34.80 [facility] Comment on above: Order Comment: N Performed By: #### L 100.0100, L503.6030, L503.0106, L502.0250, L503.6550, L500.4100, L506.1001, L501.9985, L500.4050, L506.0200 ####[facility] [address] [place], [place], [phone] Hemoglobin A1con 09-30-2024 HbA1c (Bld) [Mass fraction] 8.2 % High <=5.6 [facility] Comment on above: Result Comment: Norm al < 5.7 % Prediabetic 5.7 - 6.4 % Diabetic >or= 6.5 % Please note range changes. Performed By: #### L 100.0100, L503.6030, L503.0106, L502.0250, L503.6550, L500.4100, L506.1001, L501.9985, L500.4050, L506.0200 ####[facility] [address] [place], [place], [phone] Iron+Iron Binding Capacityon 09-30-2024 Iron [Mass/Vol] 49 ug/dL Low 50-170 [facility] Comment on above: Performed By: #### L 100.0100, L503.6030, L503.0106, L502.0250, L503.6550, L500.4100, L506.1001, L501.9985, L500.4050, L506.0200 ####[facility] [address] [place], [address] IRON SATURATION 14.0 Normal 13-59 [facility] Comment on above: Performed By: #### L 100.0100, L503.6030, L503.0106, L502.0250, L503.6550, L500.4100, L506.1001, L501.9985, L500.4050, L506.0200 ####[facility] [address] [place], [address] TIBC 341 ug/dL Normal 250-450 [facility] Comment on above: Performed By: #### L 100.0100, L503.6030, L503.0106, L502.0250, L503.6550, L500.4100, L506.1001, L501.9985, L500.4050, L506.0200 ####[facility] [address] [place], [place], [phone] UIBC 292 ug/dL Normal 228-428 [facility] Comment on above: Performed By: #### L 100.0100, L503.6030, L503.0106, L502.0250, L503.6550, L500.4100, L506.1001, L501.9985, L500.4050, L506.0200 ####[facility] [address] [place], [place], [phone] Lipid Profileon 09-30-2024 CHOL:HDL 3.16 Normal [facility] Comment on above: Performed By: #### L 100.0100, L503.6030, L503.0106, L502.0250, L503.6550, L500.4100, L506.1001, L501.9985, L500.4050, L506.0200 ####[facility] [address] [place], [place], [phone](051) Cholesterol [Mass/Vol] 131 mg/dL Normal <=200 [facility] Comment on above: Result Comment: Chol esterol level, Desirable <200 mg/dLBorderline high cholesterol 200-239 mg/dLHigh cholesterol >=240 mg/dLRecommendations of the NCEP Adult Treatment Panel for thefollowing risk-cutoff thresholds for the [place] Americanpulation. Performed By: #### L 100.0100, L503.6030, L503.0106, L502.0250, L503.6550, L500.4100, L506.1001, L501.9985, L500.4050, L506.0200 ####[facility] [address] [place], [place], [phone] Cholesterol in HDL [Mass/Vol] 42 mg/dL Normal [facility] Comment on above: Result Comment: [place] onal Cholesterol Education Program (NCEP) guidelines:<40 mg/dL: Low HDL-cholesterol (major risk factor for CHD)>= 60 mg/dL: High HDL-cholesterol (negative risk factor forCHD)HDL-cholesterol is affected by a number of factors, e.g.smoking, exercise, hormones, sex and age. Performed By: #### L 100.0100, L503.6030, L503.0106, L502.0250, L503.6550, L500.4100, L506.1001, L501.9985, L500.4050, L506.0200 ####[facility] [address] [place], [place], [phone] Cholesterol in LDL [Mass/Vol] 46 mg/dL Normal [facility] Comment on above: Result Comment: Bord lelwik=193-980 mg/dL Higher Fbtp=725 mg/dL or greater Performed By: #### L 100.0100, L503.6030, L503.0106, L502.0250, L503.6550, L500.4100, L506.1001, L501.9985, L500.4050, L506.0200 ####[facility] [address] [place], [place], [phone]) Cholesterol in VLDL [Mass/Vol] 43 mg/dL High 5-40 [facility] Comment on above: Performed By: #### L 100.0100, L503.6030, L503.0106, L502.0250, L503.6550, L500.4100, L506.1001, L501.9985, L500.4050, L506.0200 ####[facility] [address] [place], [place], [phone]) Triglyceride [Mass/Vol] 216 mg/dL High [facility] Comment on above: Result Comment: The drugs N-Acetylcysteine and Metamizole may falselydepress this assay.Normal range: <150 mg/dLBorderline High: 150-199 mg/dLHigh: 200-499 mg/dLVery High: >500 mg/dL Performed By: #### L 100.0100, L503.6030, L503.0106, L502.0250, L503.6550, L500.4100, L506.1001, L501.9985, L500.4050, L506.0200 ####[facility] [address] [place], [address] Microalb:Creat Ratio,Random URon 09-30-2024 MALB:CREAT Normal <30 mg/g CRE [facility] Comment on above: Result Comment: This specimen has been REJECTED due to Laboratory criteria:Quanity Not Sufficient.LAB EMAIL has been notified of need of recollection.09/30/24 1612 Chuyita Adler Performed By: #### L 100.0100, L503.6030, L503.0106, L502.0250, L503.6550, L500.4100, L506.1001, L501.9985, L500.4050, L506.0200 ####[facility] [address] [place], [place], [phone] MICROALBUMIN,UR Normal <20 mg/L [facility] Comment on above: Result Comment: This specimen has been REJECTED due to Laboratory criteria:Quanity Not Sufficient.LAB EMAIL has been notified of need of recollection.09/30/24 1612 Chuyita Lollo Performed By: #### L 100.0100, L503.6030, L503.0106, L502.0250, L503.6550, L500.4100, L506.1001, L501.9985, L500.4050, L506.0200 ####[facility] [address] [place], [place], [phone] UR CREAT Normal 28.00-217.00 [facility] Comment on above: Result Comment: This specimen has been REJECTED due to Laboratory criteria:Quanity Not Sufficient.LAB EMAIL has been notified of need of recollection.09/30/24 1612 Chuyita Lollo Performed By: #### L 100.0100, L503.6030, L503.0106, L502.0250, L503.6550, L500.4100, L506.1001, L501.9985, L500.4050, L506.0200 ####[facility] [address] [place], [place], [id number] Vitamin B12on 09-30-2024 Cobalamin (Vitamin B12) [Mass/Vol] 441 pg/mL Normal 180-914 [facility] Comment on above: Performed By: #### L 100.0100, L503.6030, L503.0106, L502.0250, L503.6550, L500.4100, L506.1001, L501.9985, L500.4050, L506.0200 ####[facility] [address] [place], [place], [id number] Vitamin D,25 Hydroxyon 09-30 Vitamin D 25-OH 28.5 ng/mL Low 30-100 [facility] Comment on above: Result Comment: Yessenia min D StatusDeficiency: <20 ng/mL (50nmol/L)Insufficiency: 20-30 ng/mL (50-75 nmol/L)Sufficiency: 30-100 ng/mL (75-250 nmol/L)Toxicity: >100 ng/mL (>250 nmol/L) Performed By: #### L 100.0100, L503.6030, L503.0106, L502.0250, L503.6550, L500.4100, L506.1001, L501.9985, L500.4050, L506.0200 ####[facility] [address] [place], [address] Gastric Emptying Studyon Gastric Emptying Study Normal [facility] L7000.0750on 08-19-2024 P ELASTASE,FECA 455 Normal >200 [facility] Comment on above: Result Comment: Resu lt Units: ug Elast./g Severe Pancreatic Insufficiency: <100 Moderate Pancreatic Insufficiency: 100 - 200 Normal: >200Performed at: [address] [id number] Director: Derrick Franklin MD, Phone: [phone] Performed By: #### L 7000.0750, L7000.0300 ####[facility] [address] [place], [address] Fecal Fat, Qualitativeon FATS, NEUTRAL Normal Normal . [facility] Comment on above: Order Comment: Test( s) 113777-Pxrs, Neutral; 548802-Pjng, Totalwas developed and its performance characteristicsdetermined by [facility]. It has not been cleared or approvedby the Food and Drug Administration. Result Comment: Norm al (<60 Droplets/HPF) Performed By: #### L 7000.0750, L7000.0300 ####[facility] [address] [place], [address] FATS, TOTAL Normal Normal . [facility] Comment on above: Order Comment: Test( s) 411778-Kpaj, Neutral; 992136-Usbt, Totalwas developed and its performance characteristicsdetermined by [facility]. It has not been cleared or approvedby the Food and Drug Administration. Result Comment: Norm al (<100 Droplets/HPF)Performed at: [address] [id number] Director: Eric Dumont PhD, Phone: [phone] Performed By: #### L 7000.0750, L7000.0300 ####[facility] [address] [place], [address] Fecal Fat, Qualitativeon FATS, NEUTRAL TNP Normal . [facility] Comment on above: Order Comment: Test( s) 705613-Tmje, Neutral; 991754-Soqr, Totalwas developed and its performance characteristicsdetermined by [facility]. It has not been cleared or approvedby the Food and Drug Administration. Result Comment: Test not performed. One specimen was submitted withrequests for multiple tests. The requested testing requiresa separate specimen for each test requested. Normal (<60 Droplets/HPF) Performed By: #### L 500.4050, L501.5200, M100.6796, M100.0605, L7000.0300, L100.0100 ####[facility] [address] [place], [address] FATS, TOTAL TNP Normal . [facility] Comment on above: Order Comment: Test( s) 135101-Ybmc, Neutral; 950067-Eqwy, Totalwas developed and its performance characteristicsdetermined by [facility]. It has not been cleared or approvedby the Food and Drug Administration. Result Comment: Test not performed Performed By: #### L 500.4050, L501.5200, M100.6796, M100.0605, L7000.0300, L100.0100 ####[facility] [address] [place], [address] FATS, NEUTRAL Normal [facility] Comment on above: Result Comment: REOR LAUREN Performed By: #### L 7000.0300 ####[facility] [address] [place], [address] FATS, TOTAL Normal [facility] Comment on above: Result Comment: REOR LAUREN Performed By: #### L 7000.0300 ####[facility] [address] [place], [place], [address] L3410.9992on 08-16-2024 [facility] [place] Normal . [facility] Comment on above: Order Comment: 02258 4STOOL RMT Result Comment: Test Ordered: [id number] Stool CultureSalmonella/Shigella Screen Note: CB Final report Reference Range: .Result 1 Comment CB Reference Range: .No Salmonella or Shigella recovered.Campylobacter Culture Note: Final report Reference Range: .Result 1 Comment CB Reference Range: .No Campylobacter species isolated.E coli Shiga Toxin EIA Negative CB Reference Range: NegativePerformed at: [address] [id number] Director: Eric Dumont PhD, Phone: [phone] Performed By: #### L 3410.9992 ####[facility] [address] [place], [place], [address] L7000.0750on 08-16-2024 P ELASTASE,FECA 743 Normal >200 [facility] Comment on above: Result Comment: Resu lt Units: ug Elast./g Severe Pancreatic Insufficiency: <100 Moderate Pancreatic Insufficiency: 100 - 200 Normal: >200Performed at: [address] [id number] Director: Derrick Franklin MD, Phone: [phone] Performed By: #### L 7000.0750 ####[facility] [address] [place], [address] Acute Abdomen Inc Cheston Acute Abdomen Inc Chest Normal [facility] CBC W/Diff, Automatedon - Absolute Lymph 2.28 X10 3/uL Normal 0.83-4.51 [facility] Comment on above: Order Comment: Order Date: 08/11/24Order Info: 0184-1 - CBCD Performed By: #### L 500.4050, L501.5200, M100.6796, M100.0605, L7000.0300, L100.0100 ####[facility] [address] [place], [address] Absolute Neut 3.1 X10 3/uL Normal 2.0-7.7 [facility] Comment on above: Order Comment: Order Date: 08/11/24Order Info: 0184-1 - CBCD Performed By: #### L 500.4050, L501.5200, M100.6796, M100.0605, L7000.0300, L100.0100 ####[facility] [address] [place], [address] Basophils/100 WBC (Bld) 1.2 % High 0-1 [facility] Comment on above: Order Comment: Order Date: 08/11/24Order Info: 0184-1 - CBCD Performed By: #### L 500.4050, L501.5200, M100.6796, M100.0605, L7000.0300, L100.0100 ####[facility] [address] [place], [address] Eosinophils/100 WBC (Bld) 7.2 % High 0-5 [facility] Comment on above: Order Comment: Order Date: 08/11/24Order Info: 0184-1 - CBCD Performed By: #### L 500.4050, L501.5200, M100.6796, M100.0605, L7000.0300, L100.0100 ####[facility] [address] [place], [address] Erythrocyte distribution width (RBC) [Ratio] 15.3 % High 11.6-14.6 [facility] Comment on above: Order Comment: Order Date: 08/11/24Order Info: 0184-1 - CBCD Performed By: #### L 500.4050, L501.5200, M100.6796, M100.0605, L7000.0300, L100.0100 ####[facility] [address] [place], [address] Hematocrit (Bld) [Volume fraction] 36.1 % Low 37-47 [facility] Comment on above: Order Comment: Order Date: 08/11/24Order Info: 0184-1 - CBCD Performed By: #### L 500.4050, L501.5200, M100.6796, M100.0605, L7000.0300, L100.0100 ####[facility] [address] [place], [address] Hemoglobin (Bld) [Mass/Vol] 11.4 g/dL Low 12.0-15.0 [facility] Comment on above: Order Comment: Order Date: 08/11/24Order Info: 0184-1 - CBCD Performed By: #### L 500.4050, L501.5200, M100.6796, M100.0605, L7000.0300, L100.0100 ####[facility] [address] [place], [address] IG% 0.200 Normal 0.0-0.9 [facility] Comment on above: Order Comment: Order Date: 08/11/24Order Info: 0184-1 - CBCD Result Comment: IG% - Immature Granulocytes (promyelocytes, myelocytes andmetamyelocytes) > 1% indicates that a LEFT SHIFT is Present. Performed By: #### L 500.4050, L501.5200, M100.6796, M100.0605, L7000.0300, L100.0100 ####[facility] [address] [place], [address] Lymphocytes/100 WBC (Bld) 34.9 % Normal 19-41 [facility] Comment on above: Order Comment: Order Date: 08/11/24Order Info: 0184-1 - CBCD Performed By: #### L 500.4050, L501.5200, M100.6796, M100.0605, L7000.0300, L100.0100 ####[facility] [address] [place], [address] MCH (RBC) [Entitic mass] 28.4 pg Normal 27.0-32.0 [facility] Comment on above: Order Comment: Order Date: 08/11/24Order Info: 0184-1 - CBCD Performed By: #### L 500.4050, L501.5200, M100.6796, M100.0605, L7000.0300, L100.0100 ####[facility] [address] [place], [address] MCHC (RBC) [Mass/Vol] 31.6 g/dL Low 32-36 [facility] Comment on above: Order Comment: Order Date: 08/11/24Order Info: 0184-1 - CBCD Performed By: #### L 500.4050, L501.5200, M100.6796, M100.0605, L7000.0300, L100.0100 ####[facility] [address] [place], [address] MCV (RBC) [Entitic vol] 89.8 fL Normal 81-99 [facility] Comment on above: Order Comment: Order Date: 08/11/24Order Info: 0184-1 - CBCD Performed By: #### L 500.4050, L501.5200, M100.6796, M100.0605, L7000.0300, L100.0100 ####[facility] [address] [place], [address] Monocytes/100 WBC (Bld) 8.6 % Normal 0-10 [facility] Comment on above: Order Comment: Order Date: 08/11/24Order Info: 0184-1 - CBCD Performed By: #### L 500.4050, L501.5200, M100.6796, M100.0605, L7000.0300, L100.0100 ####[facility] [address] [place], [address] Neutrophils/100 WBC (Bld) 47.9 % Normal 47-70 [facility] Comment on above: Order Comment: Order Date: 08/11/24Order Info: 0184-1 - CBCD Performed By: #### L 500.4050, L501.5200, M100.6796, M100.0605, L7000.0300, L100.0100 ####[facility] [address] [place], [address] Nucleated RBC (Bld) [#/Vol] 0 10*3/uL Normal 0-5 [facility] Comment on above: Order Comment: Order Date: 08/11/24Order Info: 0184-1 - CBCD Performed By: #### L 500.4050, L501.5200, M100.6796, M100.0605, L7000.0300, L100.0100 ####[facility] [address] [place], [address] Platelet mean volume (Bld) [Entitic vol] 11.8 fL Normal 6.2-12.0 [facility] Comment on above: Order Comment: Order Date: 08/11/24Order Info: 0184-1 - CBCD Performed By: #### L 500.4050, L501.5200, M100.6796, M100.0605, L7000.0300, L100.0100 ####[facility] [address] [place], [address] Platelets (Bld) [#/Vol] 224 10*3/uL Normal 150-450 [facility] Comment on above: Order Comment: Order Date: 08/11/24Order Info: 0184-1 - CBCD Performed By: #### L 500.4050, L501.5200, M100.6796, M100.0605, L7000.0300, L100.0100 ####[facility] [address] [place], [address] RBC (Bld) [#/Vol] 4.02 10*6/uL Low 4.2-5.4 [facility] Comment on above: Order Comment: Order Date: 08/11/24Order Info: 0184-1 - CBCD Performed By: #### L 500.4050, L501.5200, M100.6796, M100.0605, L7000.0300, L100.0100 ####[facility] [address] [place], [address] RDW SD 50.9 fl High 35.1-43.9 [facility] Comment on above: Order Comment: Order Date: 08/11/24Order Info: 0184-1 - CBCD Performed By: #### L 500.4050, L501.5200, M100.6796, M100.0605, L7000.0300, L100.0100 ####[facility] [address] [place], [address] WBC (Bld) [#/Vol] 6.5 10*3/uL Normal 4.4-11.0 [facility] Comment on above: Order Comment: Order Date: 08/11/24Order Info: 0184-1 - CBCD Performed By: #### L 500.4050, L501.5200, M100.6796, M100.0605, L7000.0300, L100.0100 ####[facility] [address] [facility] [place], [address] CDIFF (PCR)on 08-11-2024 CDIFF Order Date: 08/11/24 Order Info: [id number] - WBCST Order Info: 625-4 - CUST Order Info: 0038-2 - C DIFF Pending 027 027 NAP1-B1 Presumptive Negative *for epidemiolologic???use C. Diff PCR Negative- No toxigenic C. Diff Detected Normal [facility] Comment on above: Performed By: #### L 500.4050, L501.5200, M100.6796, M100.0605, L7000.0300, L100.0100 ####[facility] [address] [place], [address] Comprehensive Metabolic Prof ilon 08-11-2024 Albumin [Mass/Vol] 4.0 g/dL Normal 3.4-4.8 [facility] Comment on above: Order Comment: Order Date: 08/11/24Order Info: 0786-1 - CMPOrder Info: [id number] - MG Performed By: #### L 500.4050, L501.5200, M100.6796, M100.0605, L7000.0300, L100.0100 ####[facility] [address] [place], [address] Albumin/Globulin [Mass ratio] 1.4 {ratio} Normal 0.9-2.4 [facility] Comment on above: Order Comment: Order Date: 08/11/24Order Info: 0786-1 - CMPOrder Info: [id number] - MG Performed By: #### L 500.4050, L501.5200, M100.6796, M100.0605, L7000.0300, L100.0100 ####[facility] [address] [place], [address] ALK PHOS 77 U/L Normal 35-104 [facility] Comment on above: Order Comment: Order Date: 08/11/24Order Info: 0786-1 - CMPOrder Info: [id number] - MG Performed By: #### L 500.4050, L501.5200, M100.6796, M100.0605, L7000.0300, L100.0100 ####[facility] [address] [place], [address] ALT [Catalytic activity/Vol] 22 U/L Normal <=34 [facility] Comment on above: Order Comment: Order Date: 08/11/24Order Info: 0786-1 - CMPOrder Info: [id number] - MG Performed By: #### L 500.4050, L501.5200, M100.6796, M100.0605, L7000.0300, L100.0100 ####[facility] [address] [place], [address] AST [Catalytic activity/Vol] 26 U/L Normal <=31 [facility] Comment on above: Order Comment: Order Date: 08/11/24Order Info: 0786-1 - CMPOrder Info: [id number] - MG Performed By: #### L 500.4050, L501.5200, M100.6796, M100.0605, L7000.0300, L100.0100 ####[facility] [address] [place], [address] Bilirubin [Mass/Vol] 0.40 mg/dL Normal 0.00-1.30 [facility] Comment on above: Order Comment: Order Date: 08/11/24Order Info: 0786-1 - CMPOrder Info: [id number] - MG Performed By: #### L 500.4050, L501.5200, M100.6796, M100.0605, L7000.0300, L100.0100 ####[facility] [address] [place], [address] BUN/CRE 12.2 RATIO Normal 10-20 [facility] Comment on above: Order Comment: Order Date: 08/11/24Order Info: 0786-1 - CMPOrder Info: [id number] - MG Performed By: #### L 500.4050, L501.5200, M100.6796, M100.0605, L7000.0300, L100.0100 ####[facility] [address] [place], [address] Calcium [Mass/Vol] 9.5 mg/dL Normal 7.6-11.0 [facility] Comment on above: Order Comment: Order Date: 08/11/24Order Info: 0786-1 - CMPOrder Info: [id number] - MG Performed By: #### L 500.4050, L501.5200, M100.6796, M100.0605, L7000.0300, L100.0100 ####[facility] [address] [place], [address] Chloride [Moles/Vol] 101 mmol/L Normal 98-108 [facility] Comment on above: Order Comment: Order Date: 08/11/24Order Info: 0786-1 - CMPOrder Info: [id number] - MG Performed By: #### L 500.4050, L501.5200, M100.6796, M100.0605, L7000.0300, L100.0100 ####[facility] [address] [place], [address] CO2 [Moles/Vol] 24.4 mmol/L Normal 21.0-32.0 [facility] Comment on above: Order Comment: Order Date: 08/11/24Order Info: 0786-1 - CMPOrder Info: [id number] - MG Performed By: #### L 500.4050, L501.5200, M100.6796, M100.0605, L7000.0300, L100.0100 ####[facility] [address] [place], [address] Creatinine [Mass/Vol] 0.73 mg/dL Normal 0.70-1.20 [facility] Comment on above: Order Comment: Order Date: 08/11/24Order Info: 0786-1 - CMPOrder Info: [id number] - MG Performed By: #### L 500.4050, L501.5200, M100.6796, M100.0605, L7000.0300, L100.0100 ####[facility] [address] [place], [address] GAP 12 Normal 5-15 [facility] Comment on above: Order Comment: Order Date: 08/11/24Order Info: 0786-1 - CMPOrder Info: [id number] - MG Performed By: #### L 500.4050, L501.5200, M100.6796, M100.0605, L7000.0300, L100.0100 ####[facility] [address] [place], [place], [address] GFR/1.73 sq M.predicted among non-blacks MDRD (S/P/Bld) [Vol rate/Area] 80 mL/min/{1.73_m2} Normal >60 [facility] Comment on above: Order Comment: Order Date: 08/11/24Order Info: 0786-1 - CMPOrder Info: [id number] - MG Result Comment: mL/m in/1.73m2 CKD-EPI Creatinine Equation (2020) Performed By: #### L 500.4050, L501.5200, M100.6796, M100.0605, L7000.0300, L100.0100 ####[facility] [address] [place], [place], [address] Globulin (S) [Mass/Vol] 2.8 g/dL Normal 2.2-4.2 [facility] Comment on above: Order Comment: Order Date: 08/11/24Order Info: 0786-1 - CMPOrder Info: [id number] - MG Performed By: #### L 500.4050, L501.5200, M100.6796, M100.0605, L7000.0300, L100.0100 ####[facility] [address] [place], [place], [address] Glucose [Mass/Vol] 142 mg/dL High 70-99 [facility] Comment on above: Order Comment: Order Date: 08/11/24Order Info: 0786-1 - CMPOrder Info: [id number] - MG Performed By: #### L 500.4050, L501.5200, M100.6796, M100.0605, L7000.0300, L100.0100 ####[facility] [address] [place], [address] Potassium [Moles/Vol] 4.1 mmol/L Normal 3.3-5.1 [facility] Comment on above: Order Comment: Order Date: 08/11/24Order Info: 0786-1 - CMPOrder Info: [id number] - MG Performed By: #### L 500.4050, L501.5200, M100.6796, M100.0605, L7000.0300, L100.0100 ####[facility] [address] [place], [address] Sodium [Moles/Vol] 137 mmol/L Normal 133-145 [facility] Comment on above: Order Comment: Order Date: 08/11/24Order Info: 0786-1 - CMPOrder Info: [id number] - MG Performed By: #### L 500.4050, L501.5200, M100.6796, M100.0605, L7000.0300, L100.0100 ####[facility] [address] [place], [address] T PROT 6.7 g/dL Normal 5.9-8.4 [facility] Comment on above: Order Comment: Order Date: 08/11/24Order Info: 0786-1 - CMPOrder Info: [id number] - MG Performed By: #### L 500.4050, L501.5200, M100.6796, M100.0605, L7000.0300, L100.0100 ####[facility] [address] [place], [address] Urea nitrogen [Mass/Vol] 9 mg/dL Normal 4-19 [facility] Comment on above: Order Comment: Order Date: 08/11/24Order Info: 0786-1 - CMPOrder Info: [id number] - MG Performed By: #### L 500.4050, L501.5200, M100.6796, M100.0605, L7000.0300, L100.0100 ####[facility] [address] [place], [place], [phone] Magnesiumon 08-11-2024 Magnesium [Mass/Vol] 1.8 mg/dL Normal 1.5-2.2 [facility] Comment on above: Order Comment: Order Date: 08/11/24Order Info: 0786-1 - CMPOrder Info: [id number] - MG Performed By: #### L 500.4050, L501.5200, M100.6796, M100.0605, L7000.0300, L100.0100 ####[facility] [address] [facility] [id number] Stool Lactoferrin/WBCon WBCST Order Date: 08/11/24 Order Info: [id number] - WBCST Order Info: 625-4 - CUST Order Info: 0038-2 - C DIFF Normal Reference Range = Negative Fecal WBC Lactoferrin Negative: No Fecal WBC Lactoferrin present Normal [facility] Comment on above: Performed By: #### L 500.4050, L501.5200, M100.6796, M100.0605, L7000.0300, L100.0100 ####[facility] [address] [facility] [id number] CBC-Complete Blood Cnt No Di ffon 07-01-2024 Erythrocyte distribution width (RBC) [Ratio] 16.6 % High 11.6-14.6 [facility] Comment on above: Performed By: #### L 100.0500 ####[facility] [address] [place], [place], [id number] Hematocrit (Bld) [Volume fraction] 29.1 % Low 37-47 [facility] Comment on above: Performed By: #### L 100.0500 ####[facility] [address] [place], [address] Hemoglobin (Bld) [Mass/Vol] 9.5 g/dL Low 12.0-15.0 [facility] Comment on above: Performed By: #### L 100.0500 ####[facility] [address] [place], [address] MCH (RBC) [Entitic mass] 29.0 pg Normal 27.0-32.0 [facility] Comment on above: Performed By: #### L 100.0500 ####[facility] [address] [place], [address] MCHC (RBC) [Mass/Vol] 32.6 g/dL Normal 32-36 [facility] Comment on above: Performed By: #### L 100.0500 ####[facility] [address] [place], [address] MCV (RBC) [Entitic vol] 88.7 fL Normal 81-99 [facility] Comment on above: Performed By: #### L 100.0500 ####[facility] [address] [place], [address] Platelet mean volume (Bld) [Entitic vol] 11.2 fL Normal 6.2-12.0 [facility] Comment on above: Performed By: #### L 100.0500 ####[facility] [address] [place], [address] Platelets (Bld) [#/Vol] 300 10*3/uL Normal 150-450 [facility] Comment on above: Performed By: #### L 100.0500 ####[facility] [address] [place], [address] RBC (Bld) [#/Vol] 3.28 10*6/uL Low 4.2-5.4 [facility] Comment on above: Performed By: #### L 100.0500 ####[facility] [address] [place], [address] RDW SD 54.1 fl High 35.1-43.9 [facility] Comment on above: Performed By: #### L 100.0500 ####[facility] [address] [place], [address] WBC (Bld) [#/Vol] 15.3 10*3/uL High 4.4-11.0 [facility] Comment on above: Performed By: #### L 100.0500 ####[facility] [address] [place], [address] Basic Metabolic Profile (BMP )on 06-23-2024 BUN/CRE 22.8 RATIO High 10-20 [facility] Comment on above: Performed By: #### L 500.2500 ####[facility] [address] [place], [address] Calcium [Mass/Vol] 8.8 mg/dL Normal 7.6-11.0 [facility] Comment on above: Performed By: #### L 500.2500 ####[facility] [address] [place], [address] Chloride [Moles/Vol] 97 mmol/L Low 98-108 [facility] Comment on above: Performed By: #### L 500.2500 ####[facility] [address] [place], [address] CO2 [Moles/Vol] 26.1 mmol/L Normal 21.0-32.0 [facility] Comment on above: Performed By: #### L 500.2500 ####[facility] [address] [place], [address] Creatinine [Mass/Vol] 0.73 mg/dL Normal 0.70-1.20 [facility] Comment on above: Performed By: #### L 500.2500 ####[facility] [address] [place], [address] ECRCL 49.33 ml/min Low 50-250 [facility] Comment on above: Performed By: #### L 500.2500 ####[facility] [address] [place], [address] GAP 8 Normal 5-15 [facility] Comment on above: Performed By: #### L 500.2500 ####[facility] [address] [place], [address] GFR/1.73 sq M.predicted among non-blacks MDRD (S/P/Bld) [Vol rate/Area] 81 mL/min/{1.73_m2} Normal >60 [facility] Comment on above: Result Comment: mL/m in/1.73m2 CKD-EPI Creatinine Equation (2020) Performed By: #### L 500.2500 ####[facility] [address] [place], [address] Glucose [Mass/Vol] 169 mg/dL High 70-99 [facility] Comment on above: Performed By: #### L 500.2500 ####[facility] [address] [place], [address] Potassium [Moles/Vol] 4.0 mmol/L Normal 3.3-5.1 [facility] Comment on above: Performed By: #### L 500.2500 ####[facility] [address] [place], [address] Sodium [Moles/Vol] 131 mmol/L Low 133-145 [facility] Comment on above: Performed By: #### L 500.2500 ####[facility] [address] [place], [address] Urea nitrogen [Mass/Vol] 17 mg/dL Normal 4-19 [facility] Comment on above: Performed By: #### L 500.2500 ####[facility] [address] [place], [address] Bedside Glucoseon 06-23-2024 FINGERSTICK GLU 188 mg/dL High 74-106 [facility] Comment on above: Result Comment: SHADIA GEMENT OF PATIENT CARE PER NURSING PROTOCOL Performed By: #### L 501.080 ####[facility] [address] [place], [address] FINGERSTICK GLU 191 mg/dL High 74-106 [facility] Comment on above: Result Comment: SHADIA GEMENT OF PATIENT CARE PER NURSING PROTOCOL Performed By: #### L 501.080 ####[facility] [address] [place], [address] Discharge Instructionon 06-08 Discharge Instruction Normal [facility] Basic Metabolic Profile (BMP )on 06-22-2024 BUN/CRE 14.8 RATIO Normal 10-20 [facility] Comment on above: Performed By: #### L 100.0500, L500.2500 ####[facility] [address] [place], [address] Calcium [Mass/Vol] 8.9 mg/dL Normal 7.6-11.0 [facility] Comment on above: Performed By: #### L 100.0500, L500.2500 ####[facility] [address] [place], [address] Chloride [Moles/Vol] 98 mmol/L Normal 98-108 [facility] Comment on above: Performed By: #### L 100.0500, L500.2500 ####[facility] [address] [place], [address] CO2 [Moles/Vol] 25.1 mmol/L Normal 21.0-32.0 [facility] Comment on above: Performed By: #### L 100.0500, L500.2500 ####[facility] [address] [place], [address] Creatinine [Mass/Vol] 0.80 mg/dL Normal 0.70-1.20 [facility] Comment on above: Performed By: #### L 100.0500, L500.2500 ####[facility] [address] [place], [address] ECRCL 49.33 ml/min Low 50-250 [facility] Comment on above: Performed By: #### L 100.0500, L500.2500 ####[facility] [address] [place], [address] GAP 10 Normal 5-15 [facility] Comment on above: Performed By: #### L 100.0500, L500.2500 ####[facility] [address] [place], [address] GFR/1.73 sq M.predicted among non-blacks MDRD (S/P/Bld) [Vol rate/Area] 72 mL/min/{1.73_m2} Normal >60 [facility] Comment on above: Result Comment: mL/m in/1.73m2 CKD-EPI Creatinine Equation (2020) Performed By: #### L 100.0500, L500.2500 ####[facility] [address] [place], [address] Glucose [Mass/Vol] 180 mg/dL High 70-99 [facility] Comment on above: Performed By: #### L 100.0500, L500.2500 ####[facility] [address] [place], [address] Potassium [Moles/Vol] 4.3 mmol/L Normal 3.3-5.1 [facility] Comment on above: Performed By: #### L 100.0500, L500.2500 ####[facility] [address] [place], [address] Sodium [Moles/Vol] 133 mmol/L Normal 133-145 [facility] Comment on above: Performed By: #### L 100.0500, L500.2500 ####[facility] [address] [place], [address] Urea nitrogen [Mass/Vol] 12 mg/dL Normal 4-19 [facility] Comment on above: Performed By: #### L 100.0500, L500.2500 ####[facility] [address] [place], [address] Bedside Glucoseon 06-22-2024 FINGERSTICK GLU 196 mg/dL High 74-106 [facility] Comment on above: Result Comment: SHADIA GEMENT OF PATIENT CARE PER NURSING PROTOCOL Performed By: #### L 501.080 ####[facility] [address] [place], [address] FINGERSTICK GLU 255 mg/dL High 74-106 [facility] Comment on above: Result Comment: SHADIA GEMENT OF PATIENT CARE PER NURSING PROTOCOL Performed By: #### L 501.080 ####[facility] [address] [place], [address] CBC-Complete Blood Cnt No Di ffon 06-22-2024 Erythrocyte distribution width (RBC) [Ratio] 16.2 % High 11.6-14.6 [facility] Comment on above: Performed By: #### L 100.0500, L500.2500 ####[facility] [address] [place], [address] Hematocrit (Bld) [Volume fraction] 32.2 % Low 37-47 [facility] Comment on above: Performed By: #### L 100.0500, L500.2500 ####[facility] [address] [place], [address] Hemoglobin (Bld) [Mass/Vol] 10.4 g/dL Low 12.0-15.0 [facility] Comment on above: Performed By: #### L 100.0500, L500.2500 ####[facility] [address] [place], [address] MCH (RBC) [Entitic mass] 28.3 pg Normal 27.0-32.0 [facility] Comment on above: Performed By: #### L 100.0500, L500.2500 ####[facility] [address] [place], [address] MCHC (RBC) [Mass/Vol] 32.3 g/dL Normal 32-36 [facility] Comment on above: Performed By: #### L 100.0500, L500.2500 ####[facility] [address] [place], [address] MCV (RBC) [Entitic vol] 87.7 fL Normal 81-99 [facility] Comment on above: Performed By: #### L 100.0500, L500.2500 ####[facility] [address] [place], [address] Platelet mean volume (Bld) [Entitic vol] 11.8 fL Normal 6.2-12.0 [facility] Comment on above: Performed By: #### L 100.0500, L500.2500 ####[facility] [address] [place], [address] Platelets (Bld) [#/Vol] 177 10*3/uL Normal 150-450 [facility] Comment on above: Performed By: #### L 100.0500, L500.2500 ####[facility] [address] [place], [address] RBC (Bld) [#/Vol] 3.67 10*6/uL Low 4.2-5.4 [facility] Comment on above: Performed By: #### L 100.0500, L500.2500 ####[facility] [address] [place], [address] RDW SD 52.2 fl High 35.1-43.9 [facility] Comment on above: Performed By: #### L 100.0500, L500.2500 ####[facility] [address] [place], [address] WBC (Bld) [#/Vol] 9.5 10*3/uL Normal 4.4-11.0 [facility] Comment on above: Performed By: #### L 100.0500, L500.2500 ####[facility] [address] [place], [address] Bedside Glucoseon 06-21-2024 FINGERSTICK GLU 183 mg/dL High [address] [place] [address] Comment on above: Result Comment: SHADIA GEMENT OF PATIENT CARE PER NURSING PROTOCOL Performed By: #### L 501.080 ####[facility] [address] [place], [address] FINGERSTICK GLU 253 mg/dL High 74-106 [facility] Comment on above: Result Comment: SHADIA GEMENT OF PATIENT CARE PER NURSING PROTOCOL Performed By: #### L 501.080 ####[facility] [address] [place], [address] FINGERSTICK GLU 295 mg/dL High [address] [place] [address] Comment on above: Result Comment: SHADIA GEMENT OF PATIENT CARE PER NURSING PROTOCOL Performed By: #### L 501.080 ####[facility] [address] [place], [address] FINGERSTICK GLU 332 mg/dL High [address] [place] [address] Comment on above: Result Comment: SHADIA GEMENT OF PATIENT CARE PER NURSING PROTOCOL Performed By: #### L 501.080 ####[facility] [address] [place], [address] Decalcification bone/plaqueo n 06-21-2024 Decalcification bone/plaque Normal [facility] Comment on above: Performed By: #### P DEC ####[facility] [address] [place], [address] MR/POSTOP.ANEon 06-21-2024 MR/POSTOP.ANE Normal [facility] MR/WRJMETGN7jr 06-21-2024 MR/POSTOPAN2 Normal [facility] Operative Reporton Operative Report Normal [facility] Shoulder min 2 Viewson 06-21 Shoulder min 2 Views Normal [facility] MR/BMS.BPon 06-14-2024 MR/BMS.BP Normal [facility] MRSA/SAID NASAL SCREENon MRSA+SAID SCRN Reason for Exam: PRE OP MRSA MRSA Negative S. AUREUS S. aureus PositiveA Normal [facility] Comment on above: Performed By: #### M 100650 ####[facility] [address] [place], [address] MR/PAT.ANEon 05-31-2024 MR/PAT.ANE Normal [facility] Magnesiumon 05-31-2024 Magnesium [Mass/Vol] 1.7 mg/dL Normal 1.5-2.2 [facility] Comment on above: Performed By: #### L 501.5200 ####[facility] [address] [place], [address] Ferritinon 05-22-2024 Ferritin [Mass/Vol] 22 ng/mL Normal 22-378 [facility] Comment on above: Order Comment: KATHLEEN Garcia ADD IBC POLLO TO BLOOD DRAWN 05/20/24 PER Order Date: 05/20/24Order Info: 0786-1 - CMP Performed By: #### L 503.6550, L506.1001, L503.6030 ####[facility] [address] [place], [address] Iron+Iron Binding Capacityon 05-22-2024 Iron [Mass/Vol] 40 ug/dL Low 50-170 [facility] Comment on above: Order Comment: KATHLEEN Garcia ADD IBC POLLO TO BLOOD DRAWN 05/20/24 PER Order Date: 05/20/24Order Info: 0786-1 - CMP Performed By: #### L 503.6550, L506.1001, L503.6030 ####[facility] [address] [place], [address] IRON SATURATION 10.0 Low 13-59 [facility] Comment on above: Order Comment: KATHLEEN Garcia ADD IBC POLLO TO BLOOD DRAWN 05/20/24 PER Order Date: 05/20/24Order Info: 0786-1 - CMP Performed By: #### L 503.6550, L506.1001, L503.6030 ####[facility] [address] [place], [address] TIBC 383 ug/dL Normal 250-450 [facility] Comment on above: Order Comment: KATHLEEN Garcia ADD IBC POLLO TO BLOOD DRAWN 05/20/24 PER Order Date: 05/20/24Order Info: 0786- - CMP Performed By: #### L 503.6550, L506.1001, L503.6030 ####[facility] [address] [place], [address] UIBC 343 ug/dL Normal 228-428 [facility] Comment on above: Order Comment: KATHLEEN Garcia ADD IBC POLLO TO BLOOD DRAWN 05/20/24 PER Order Date: 05/20/24Order Info: 0786- - CMP Performed By: #### L 503.6550, L506.1001, L503.6030 ####[facility] [address] [place], [address] CBC W/Diff, Automatedon 05-08 Absolute Lymph 3.14 X10 3/uL Normal 0.83-4.51 [facility] Comment on above: Order Comment: Order Date: 05/20/24Order Info: 0184-1 - CBCD Performed By: #### L 100.0100, L500.4050 ####[facility] [address] [place], [address] Absolute Neut 3.8 X10 3/uL Normal 2.0-7.7 [facility] Comment on above: Order Comment: Order Date: 05/20/24Order Info: 0184-1 - CBCD Performed By: #### L 100.0100, L500.4050 ####[facility] [address] [place], [address] Basophils/100 WBC (Bld) 0.9 % Normal 0-1 [facility] Comment on above: Order Comment: Order Date: 05/20/24Order Info: 0184-1 - CBCD Performed By: #### L 100.0100, L500.4050 ####[facility] [address] [place], [address] Eosinophils/100 WBC (Bld) 3.8 % Normal 0-5 [facility] Comment on above: Order Comment: Order Date: 05/20/24Order Info: 0184-1 - CBCD Performed By: #### L 100.0100, L500.4050 ####[facility] [address] [place], [address] Erythrocyte distribution width (RBC) [Ratio] 14.6 % Normal 11.6-14.6 [facility] Comment on above: Order Comment: Order Date: 05/20/24Order Info: 0184-1 - CBCD Performed By: #### L 100.0100, L500.4050 ####[facility] [address] [place], [address] Hematocrit (Bld) [Volume fraction] 33.9 % Low 37-47 [facility] Comment on above: Order Comment: Order Date: 05/20/24Order Info: 0184-1 - CBCD Performed By: #### L 100.0100, L500.4050 ####[facility] [address] [place], [address] Hemoglobin (Bld) [Mass/Vol] 10.9 g/dL Low 12.0-15.0 [facility] Comment on above: Order Comment: Order Date: 05/20/24Order Info: 0184-1 - CBCD Performed By: #### L 100.0100, L500.4050 ####[facility] [address] [place], [address] IG% 0.100 Normal 0.0-0.9 [facility] Comment on above: Order Comment: Order Date: 05/20/24Order Info: 0184-1 - CBCD Result Comment: IG% - Immature Granulocytes (promyelocytes, myelocytes andmetamyelocytes) > 1% indicates that a LEFT SHIFT is Present. Performed By: #### L 100.0100, L500.4050 ####[facility] [address] [place], [address] Lymphocytes/100 WBC (Bld) 39.7 % Normal 19-41 [facility] Comment on above: Order Comment: Order Date: 05/20/24Order Info: 018- - CBCD Performed By: #### L 100.0100, L500.4050 ####[facility] [address] [place], [address] MCH (RBC) [Entitic mass] 27.3 pg Normal 27.0-32.0 [facility] Comment on above: Order Comment: Order Date: 05/20/24Order Info: 0184-1 - CBCD Performed By: #### L 100.0100, L500.4050 ####[facility] [address] [place], [address] MCHC (RBC) [Mass/Vol] 32.2 g/dL Normal 32-36 [facility] Comment on above: Order Comment: Order Date: 05/20/24Order Info: 0184-1 - CBCD Performed By: #### L 100.0100, L500.4050 ####[facility] [address] [place], [address] MCV (RBC) [Entitic vol] 85.0 fL Normal 81-99 [facility] Comment on above: Order Comment: Order Date: 05/20/24Order Info: 0184-1 - CBCD Performed By: #### L 100.0100, L500.4050 ####[facility] [address] [place], [address] Monocytes/100 WBC (Bld) 8.1 % Normal 0-10 [facility] Comment on above: Order Comment: Order Date: 05/20/24Order Info: 0184-1 - CBCD Performed By: #### L 100.0100, L500.4050 ####[facility] [address] [place], [address] Neutrophils/100 WBC (Bld) 47.4 % Normal 47-70 [facility] Comment on above: Order Comment: Order Date: 05/20/24Order Info: 0184-1 - CBCD Performed By: #### L 100.0100, L500.4050 ####[facility] [address] [place], [address] Nucleated RBC (Bld) [#/Vol] 0 10*3/uL Normal 0-5 [facility] Comment on above: Order Comment: Order Date: 05/20/24Order Info: 0184-1 - CBCD Performed By: #### L 100.0100, L500.4050 ####[facility] [address] [place], [address] Platelet mean volume (Bld) [Entitic vol] 11.5 fL Normal 6.2-12.0 [facility] Comment on above: Order Comment: Order Date: 05/20/24Order Info: 0184-1 - CBCD Performed By: #### L 100.0100, L500.4050 ####[facility] [address] [place], [address] Platelets (Bld) [#/Vol] 227 10*3/uL Normal 150-450 [facility] Comment on above: Order Comment: Order Date: 05/20/24Order Info: 0184-1 - CBCD Performed By: #### L 100.0100, L500.4050 ####[facility] [address] [place], [address] RBC (Bld) [#/Vol] 3.99 10*6/uL Low 4.2-5.4 [facility] Comment on above: Order Comment: Order Date: 05/20/24Order Info: 0184-1 - CBCD Performed By: #### L 100.0100, L500.4050 ####[facility] [address] [place], [address] RDW SD 44.8 fl High 35.1-43.9 [facility] Comment on above: Order Comment: Order Date: 05/20/24Order Info: 0184-1 - CBCD Performed By: #### L 100.0100, L500.4050 ####[facility] [address] [place], [address] WBC (Bld) [#/Vol] 7.9 10*3/uL Normal 4.4-11.0 [facility] Comment on above: Order Comment: Order Date: 05/20/24Order Info: 0184-1 - CBCD Performed By: #### L 100.0100, L500.4050 ####[facility] [address] [place], [address] Comprehensive Metabolic Prof ilon 05-20-2024 Albumin [Mass/Vol] 4.2 g/dL Normal 3.4-4.8 [facility] Comment on above: Order Comment: Order Date: 05/20/24Order Info: 0786-1 - CMP Performed By: #### L 100.0100, L500.4050 ####[facility] [address] [place], [address] Albumin/Globulin [Mass ratio] 1.6 {ratio} Normal 0.9-2.4 [facility] Comment on above: Order Comment: Order Date: 05/20/24Order Info: 0786-1 - CMP Performed By: #### L 100.0100, L500.4050 ####[facility] [address] [place], [address] ALK PHOS 74 U/L Normal 35-104 [facility] Comment on above: Order Comment: Order Date: 05/20/24Order Info: 0786-1 - CMP Performed By: #### L 100.0100, L500.4050 ####[facility] [address] [place], [address] ALT [Catalytic activity/Vol] 26 U/L Normal <=34 [facility] Comment on above: Order Comment: Order Date: 05/20/24Order Info: 0786-1 - CMP Performed By: #### L 100.0100, L500.4050 ####[facility] [address] [place], [address] AST [Catalytic activity/Vol] 25 U/L Normal <=31 [facility] Comment on above: Order Comment: Order Date: 05/20/24Order Info: 0786-1 - CMP Performed By: #### L 100.0100, L500.4050 ####[facility] [address] [place], [address] Bilirubin [Mass/Vol] 0.30 mg/dL Normal 0.00-1.30 [facility] Comment on above: Order Comment: Order Date: 05/20/24Order Info: 0786-1 - CMP Performed By: #### L 100.0100, L500.4050 ####[facility] [address] [place], [address] BUN/CRE 16.4 RATIO Normal 10-20 [facility] Comment on above: Order Comment: Order Date: 05/20/24Order Info: 0786-1 - CMP Performed By: #### L 100.0100, L500.4050 ####[facility] [address] [place], [address] Calcium [Mass/Vol] 9.3 mg/dL Normal 7.6-11.0 [facility] Comment on above: Order Comment: Order Date: 05/20/24Order Info: 0786-1 - CMP Performed By: #### L 100.0100, L500.4050 ####[facility] [address] [place], [address] Chloride [Moles/Vol] 100 mmol/L Normal 98-108 [facility] Comment on above: Order Comment: Order Date: 05/20/24Order Info: 0786-1 - CMP Performed By: #### L 100.0100, L500.4050 ####[facility] [address] [place], [address] CO2 [Moles/Vol] 25.4 mmol/L Normal 21.0-32.0 [facility] Comment on above: Order Comment: Order Date: 05/20/24Order Info: 0786-1 - CMP Performed By: #### L 100.0100, L500.4050 ####[facility] [address] [place], [address] Creatinine [Mass/Vol] 0.69 mg/dL Low 0.70-1.20 [facility] Comment on above: Order Comment: Order Date: 05/20/24Order Info: 0786-1 - CMP Performed By: #### L 100.0100, L500.4050 ####[facility] [address] [place], [address] GAP 11 Normal 5-15 [facility] Comment on above: Order Comment: Order Date: 05/20/24Order Info: 0786-1 - CMP Performed By: #### L 100.0100, L500.4050 ####[facility] [address] [place], [address] GFR/1.73 sq M.predicted among non-blacks MDRD (S/P/Bld) [Vol rate/Area] 85 mL/min/{1.73_m2} Normal >60 [facility] Comment on above: Order Comment: Order Date: 05/20/24Order Info: 0786-1 - CMP Result Comment: mL/m in/1.73m2 CKD-EPI Creatinine Equation (2020) Performed By: #### L 100.0100, L500.4050 ####[facility] [address] [place], [address] Globulin (S) [Mass/Vol] 2.6 g/dL Normal 2.2-4.2 [facility] Comment on above: Order Comment: Order Date: 05/20/24Order Info: 0786-1 - CMP Performed By: #### L 100.0100, L500.4050 ####[facility] [address] [place], [address] Glucose [Mass/Vol] 143 mg/dL High 70-99 [facility] Comment on above: Order Comment: Order Date: 05/20/24Order Info: 0786-1 - CMP Performed By: #### L 100.0100, L500.4050 ####[facility] [address] [place], [address] Potassium [Moles/Vol] 3.8 mmol/L Normal 3.3-5.1 [facility] Comment on above: Order Comment: Order Date: 05/20/24Order Info: 0786-1 - CMP Performed By: #### L 100.0100, L500.4050 ####[facility] [address] [place], [address] Sodium [Moles/Vol] 136 mmol/L Normal 133-145 [facility] Comment on above: Order Comment: Order Date: 05/20/24Order Info: 0786-1 - CMP Performed By: #### L 100.0100, L500.4050 ####[facility] [address] [place], [address] T PROT 6.8 g/dL Normal 5.9-8.4 [facility] Comment on above: Order Comment: Order Date: 05/20/24Order Info: 0786-1 - CMP Performed By: #### L 100.0100, L500.4050 ####[facility] [address] [place], [address] Urea nitrogen [Mass/Vol] 11 mg/dL Normal 4-19 [facility] Comment on above: Order Comment: Order Date: 05/20/24Order Info: 0786-1 - CMP Performed By: #### L 100.0100, L500.4050 ####[facility] [address] [place], [address] L506.1001on 05-20-2024 Vitamin D 25-OH 26.9 ng/mL Low 30-100 [facility] Comment on above: Order Comment: Order Date: 05/20/24Order Info: 0786-1 - CMP Result Comment: Yessenia min D StatusDeficiency: <20 ng/mL (50nmol/L)Insufficiency: 20-30 ng/mL (50-75 nmol/L)Sufficiency: 30-100 ng/mL (75-250 nmol/L)Toxicity: >100 ng/mL (>250 nmol/L) Performed By: #### L 503.6550, L506.1001, L503.6030 ####[facility] [address] [place], [address] Ferritinon 04-06-2024 Ferritin [Mass/Vol] 12 ng/mL Normal 8-252 [facility] Comment on above: Order Comment: KATHLEEN Garcia ADD POLLO IBC TO BLOOD DRAWN 04/02/24 PER Order Date: 04/02/24Order Info: 0786-1 - CMPOrder Info: [id number] - LIPID Performed By: #### L 400.0001, L503.6030, L503.6550 ####[facility] [address] [place], [place], [address] Iron+Iron Binding Capacityon 04-06-2024 Iron [Mass/Vol] 41 ug/dL Low 50-170 [facility] Comment on above: Order Comment: KATHLEEN Garcia ADD POLLO IBC TO BLOOD DRAWN 04/02/24 PER Order Date: 04/02/24Order Info: 0786- - CMPOrder Info: [id number] - LIPID Performed By: #### L 400.0001, L503.6030, L503.6550 ####[facility] [address] [place], [place], [address] IRON SATURATION 9.8 Low 15.0-55.0 [facility] Comment on above: Order Comment: KATHLEEN Garcia ADD POLLO IBC TO BLOOD DRAWN 04/02/24 PER Order Date: 04/02/24Order Info: 0786- - CMPOrder Info: [id number] - LIPID Performed By: #### L 400.0001, L503.6030, L503.6550 ####[facility] [address] [place], [address] TIBC 420 ug/dL Normal 250-450 [facility] Comment on above: Order Comment: KATHLEEN Garcia ADD POLLO IBC TO BLOOD DRAWN 04/02/24 PER Order Date: 04/02/24Order Info: 0786-1 - CMPOrder Info: [id number] - LIPID Performed By: #### L 400.0001, L503.6030, L503.6550 ####[facility] [address] [place], [place], [address] CBC W/Diff, Automatedon 03-11 Absolute Lymph 2.14 X10 3/uL Normal 0.83-4.51 [facility] Comment on above: Order Comment: Order Date: 04/02/24Order Info: 0184-1 - CBCD Performed By: #### L 500.4050, L502.0250, L100.0100, L506.1000, L500.4100 ####[facility] [address] [place], [address] Absolute Neut 3.7 X10 3/uL Normal 2.0-7.7 [facility] Comment on above: Order Comment: Order Date: 04/02/24Order Info: 0184-1 - CBCD Performed By: #### L 500.4050, L502.0250, L100.0100, L506.1000, L500.4100 ####[facility] [address] [place], [address] Basophils/100 WBC (Bld) 0.9 % Normal 0-1 [facility] Comment on above: Order Comment: Order Date: 04/02/24Order Info: 0184-1 - CBCD Performed By: #### L 500.4050, L502.0250, L100.0100, L506.1000, L500.4100 ####[facility] [address] [place], [address] Eosinophils/100 WBC (Bld) 3.2 % Normal 0-5 [facility] Comment on above: Order Comment: Order Date: 04/02/24Order Info: 0184- - CBCD Performed By: #### L 500.4050, L502.0250, L100.0100, L506.1000, L500.4100 ####[facility] [address] [place], [address] Erythrocyte distribution width (RBC) [Ratio] 14.7 % High 11.6-14.6 [facility] Comment on above: Order Comment: Order Date: 04/02/24Order Info: 0184-1 - CBCD Performed By: #### L 500.4050, L502.0250, L100.0100, L506.1000, L500.4100 ####[facility] [address] [place], [address] Hematocrit (Bld) [Volume fraction] 34.4 % Low 37-47 [facility] Comment on above: Order Comment: Order Date: 04/02/24Order Info: [id number] - CBCD Performed By: #### L 500.4050, L502.0250, L100.0100, L506.1000, L500.4100 ####[facility] [address] [place], [address] Hemoglobin (Bld) [Mass/Vol] 10.6 g/dL Low 12.0-15.0 [facility] Comment on above: Order Comment: Order Date: 04/02/24Order Info: [id number] - CBCD Performed By: #### L 500.4050, L502.0250, L100.0100, L506.1000, L500.4100 ####[facility] [address] [place], [address] IG% 0.200 Normal 0.0-0.9 [facility] Comment on above: Order Comment: Order Date: 04/02/24Order Info: [id number] - CBCD Result Comment: IG% - Immature Granulocytes (promyelocytes, myelocytes andmetamyelocytes) > 1% indicates that a LEFT SHIFT is Present. Performed By: #### L 500.4050, L502.0250, L100.0100, L506.1000, L500.4100 ####[facility] [address] [place], [address] Lymphocytes/100 WBC (Bld) 32.1 % Normal 19-41 [facility] Comment on above: Order Comment: Order Date: 04/02/24Order Info: [id number] - CBCD Performed By: #### L 500.4050, L502.0250, L100.0100, L506.1000, L500.4100 ####[facility] [address] [place], [address] MCH (RBC) [Entitic mass] 26.8 pg Low 27.0-32.0 [facility] Comment on above: Order Comment: Order Date: 04/02/24Order Info: [id number] - CBCD Performed By: #### L 500.4050, L502.0250, L100.0100, L506.1000, L500.4100 ####[facility] [address] [place], [address] MCHC (RBC) [Mass/Vol] 30.8 g/dL Low 32-36 [facility] Comment on above: Order Comment: Order Date: 04/02/24Order Info: [id number] - CBCD Performed By: #### L 500.4050, L502.0250, L100.0100, L506.1000, L500.4100 ####[facility] [address] [place], [address] MCV (RBC) [Entitic vol] 87.1 fL Normal 81-99 [facility] Comment on above: Order Comment: Order Date: 04/02/24Order Info: [id number] - CBCD Performed By: #### L 500.4050, L502.0250, L100.0100, L506.1000, L500.4100 ####[facility] [address] [place], [address] Monocytes/100 WBC (Bld) 8.9 % Normal 0-10 [facility] Comment on above: Order Comment: Order Date: 04/02/24Order Info: [id number] - CBCD Performed By: #### L 500.4050, L502.0250, L100.0100, L506.1000, L500.4100 ####[facility] [address] [place], [address] Neutrophils/100 WBC (Bld) 54.7 % Normal 47-70 [facility] Comment on above: Order Comment: Order Date: 04/02/24Order Info: [id number] - CBCD Performed By: #### L 500.4050, L502.0250, L100.0100, L506.1000, L500.4100 ####[facility] [address] [place], [address] Nucleated RBC (Bld) [#/Vol] 0 10*3/uL Normal 0-5 [facility] Comment on above: Order Comment: Order Date: 04/02/24Order Info: [id number] - CBCD Performed By: #### L 500.4050, L502.0250, L100.0100, L506.1000, L500.4100 ####[facility] [address] [place], [address] Platelet mean volume (Bld) [Entitic vol] 11.5 fL Normal 6.2-12.0 [facility] Comment on above: Order Comment: Order Date: 04/02/24Order Info: [id number] - CBCD Performed By: #### L 500.4050, L502.0250, L100.0100, L506.1000, L500.4100 ####[facility] [address] [place], [address] Platelets (Bld) [#/Vol] 217 10*3/uL Normal 150-450 [facility] Comment on above: Order Comment: Order Date: 04/02/24Order Info: [id number] - CBCD Performed By: #### L 500.4050, L502.0250, L100.0100, L506.1000, L500.4100 ####[facility] [address] [place], [address] RBC (Bld) [#/Vol] 3.95 10*6/uL Low 4.2-5.4 [facility] Comment on above: Order Comment: Order Date: 04/02/24Order Info: [id number] - CBCD Performed By: #### L 500.4050, L502.0250, L100.0100, L506.1000, L500.4100 ####[facility] [address] [place], [address] RDW SD 47.5 fl High 35.1-43.9 [facility] Comment on above: Order Comment: Order Date: 04/02/24Order Info: [id number] - CBCD Performed By: #### L 500.4050, L502.0250, L100.0100, L506.1000, L500.4100 ####[facility] [address] [place], [address] WBC (Bld) [#/Vol] 6.7 10*3/uL Normal 4.4-11.0 [facility] Comment on above: Order Comment: Order Date: 04/02/24Order Info: [id number] - CBCD Performed By: #### L 500.4050, L502.0250, L100.0100, L506.1000, L500.4100 ####[facility] [address] [place], [address] Comprehensive Metabolic Prof ilon 04-02-2024 Albumin [Mass/Vol] 3.4 g/dL Normal 3.2-5.0 [facility] Comment on above: Order Comment: Order Date: 04/02/24Order Info: [id number] - CMPOrder Info: [id number] - LIPID Performed By: #### L 500.4050, L502.0250, L100.0100, L506.1000, L500.4100 ####[facility] [address] [place], [address] Albumin/Globulin [Mass ratio] 1.0 {ratio} Normal 0.9-2.4 [facility] Comment on above: Order Comment: Order Date: 04/02/24Order Info: [id number] - CMPOrder Info: [id number] - LIPID Performed By: #### L 500.4050, L502.0250, L100.0100, L506.1000, L500.4100 ####[facility] [address] [place], [address] ALK P 137 U/L High 45-117 [facility] Comment on above: Order Comment: Order Date: 04/02/24Order Info: [id number] - CMPOrder Info: [id number] - LIPID Performed By: #### L 500.4050, L502.0250, L100.0100, L506.1000, L500.4100 ####[facility] [address] [place], [address] ALT [Catalytic activity/Vol] 28 U/L Normal 13-56 [facility] Comment on above: Order Comment: Order Date: 04/02/24Order Info: [id number] - CMPOrder Info: [id number] - LIPID Performed By: #### L 500.4050, L502.0250, L100.0100, L506.1000, L500.4100 ####[facility] [address] [place], [place], [address] AST [Catalytic activity/Vol] 17 U/L Normal 15-37 [facility] Comment on above: Order Comment: Order Date: 04/02/24Order Info: [id number] - CMPOrder Info: [id number] - LIPID Performed By: #### L 500.4050, L502.0250, L100.0100, L506.1000, L500.4100 ####[facility] [address] [place], [address] Bilirubin [Mass/Vol] 0.40 mg/dL Normal 0.20-1.00 [facility] Comment on above: Order Comment: Order Date: 04/02/24Order Info: [id number] - CMPOrder Info: [id number] - LIPID Result Comment: For patients on eltrombopag therapy, use of Dimension [place] TBIL is not recommended. Performed By: #### L 500.4050, L502.0250, L100.0100, L506.1000, L500.4100 ####[facility] [address] [place], [address] BUN/CRE 18.7 RATIO Normal 10-20 [facility] Comment on above: Order Comment: Order Date: 04/02/24Order Info: [id number] - CMPOrder Info: [id number] - LIPID Performed By: #### L 500.4050, L502.0250, L100.0100, L506.1000, L500.4100 ####[facility] [address] [place], [address] CA,Total 8.8 mg/dL Normal 8.5-10.1 [facility] Comment on above: Order Comment: Order Date: 04/02/24Order Info: [id number]- - CMPOrder Info: [id number] - LIPID Performed By: #### L 500.4050, L502.0250, L100.0100, L506.1000, L500.4100 ####[facility] [address] [place], [address] Chloride [Moles/Vol] 103 mmol/L Normal 98-107 [facility] Comment on above: Order Comment: Order Date: 04/02/24Order Info: [id number] - CMPOrder Info: [id number] - LIPID Performed By: #### L 500.4050, L502.0250, L100.0100, L506.1000, L500.4100 ####[facility] [address] [place], [address] CO2 [Moles/Vol] 25.0 mmol/L Normal 21.0-32.0 [facility] Comment on above: Order Comment: Order Date: 04/02/24Order Info: 0786- - CMPOrder Info: [id number] - LIPID Performed By: #### L 500.4050, L502.0250, L100.0100, L506.1000, L500.4100 ####[facility] [address] [place], [place], [address] Creatinine [Mass/Vol] 0.70 mg/dL Normal 0.55-1.02 [facility] Comment on above: Order Comment: Order Date: 04/02/24Order Info: [id number] - CMPOrder Info: [id number] - LIPID Result Comment: The validity of the calculated GFR GFRAA in patients over70 years has not been determined. Clinical correlation isessential. Performed By: #### L 500.4050, L502.0250, L100.0100, L506.1000, L500.4100 ####[facility] [address] [place], [address] EST GFR - AA 103 mL/min Normal >60 [facility] Comment on above: Order Comment: Order Date: 04/02/24Order Info: 0786- - CMPOrder Info: [id number] - LIPID Result Comment: Afri can Brazilian GFR Calc Performed By: #### L 500.4050, L502.0250, L100.0100, L506.1000, L500.4100 ####[facility] [address] [place], [address] GAP 9 Normal 5-15 [facility] Comment on above: Order Comment: Order Date: 04/02/24Order Info: [id number] - CMPOrder Info: [id number] - LIPID Performed By: #### L 500.4050, L502.0250, L100.0100, L506.1000, L500.4100 ####[facility] [address] [place], [address] GFR/1.73 sq M.predicted among non-blacks MDRD (S/P/Bld) [Vol rate/Area] 85 mL/min/{1.73_m2} Normal >60 [facility] Comment on above: Order Comment: Order Date: 04/02/24Order Info: [id number] - CMPOrder Info: [id number] - LIPID Result Comment: Non- GFR Calc Performed By: #### L 500.4050, L502.0250, L100.0100, L506.1000, L500.4100 ####[facility] [address] [place], [address] Globulin (S) [Mass/Vol] 3.5 g/dL Normal 2.2-4.2 [facility] Comment on above: Order Comment: Order Date: 04/02/24Order Info: [id number] - CMPOrder Info: [id number] - LIPID Performed By: #### L 500.4050, L502.0250, L100.0100, L506.1000, L500.4100 ####[facility] [address] [place], [address] Glucose [Mass/Vol] 174 mg/dL High 74-106 [facility] Comment on above: Order Comment: Order Date: 04/02/24Order Info: 0786- - CMPOrder Info: [id number] - LIPID Result Comment: Fast ing Glucose result greater than or equal to 126 mg/dLsuggests DIABETES MELLITUS per A.D.A. criteria. Performed By: #### L 500.4050, L502.0250, L100.0100, L506.1000, L500.4100 ####[facility] [address] [place], [address] Potassium [Moles/Vol] 3.8 mmol/L Normal 3.5-5.1 [facility] Comment on above: Order Comment: Order Date: 04/02/24Order Info: [id number] - CMPOrder Info: [id number] - LIPID Performed By: #### L 500.4050, L502.0250, L100.0100, L506.1000, L500.4100 ####[facility] [address] [place], [address] Sodium [Moles/Vol] 137 mmol/L Normal 136-145 [facility] Comment on above: Order Comment: Order Date: 04/02/24Order Info: [id number] - CMPOrder Info: [id number] - LIPID Performed By: #### L 500.4050, L502.0250, L100.0100, L506.1000, L500.4100 ####[facility] [address] [place], [address] T PROT 6.9 g/dL Normal 6.4-8.2 [facility] Comment on above: Order Comment: Order Date: 04/02/24Order Info: [id number] - CMPOrder Info: [id number] - LIPID Performed By: #### L 500.4050, L502.0250, L100.0100, L506.1000, L500.4100 ####[facility] [address] [place], [address] Urea nitrogen [Mass/Vol] 13 mg/dL Normal 7-18 [facility] Comment on above: Order Comment: Order Date: 04/02/24Order Info: [id number] - CMPOrder Info: [id number] - LIPID Performed By: #### L 500.4050, L502.0250, L100.0100, L506.1000, L500.4100 ####[facility] [address] [place], [address] Lipid Profileon 04-02-2024 Cholesterol [Mass/Vol] 139 mg/dL Normal 200 [facility] Comment on above: Order Comment: Order Date: 04/02/24Order Info: [id number] - CMPOrder Info: [id number] - LIPID Result Comment: <200 mg/dL Desirable 200-240 mg/dL Borderline >240 mg/dL High Risk Performed By: #### L 500.4050, L502.0250, L100.0100, L506.1000, L500.4100 ####[facility] [address] [place], [address] Cholesterol in HDL [Mass/Vol] 65 mg/dL Normal [facility] Comment on above: Order Comment: Order Date: 04/02/24Order Info: [id number] - CMPOrder Info: [id number] - LIPID Result Comment: The drugs N-Acetylcysteine and Metamizole may falselydepress this assay. Reference Range HDL <40 mg/dL Low HDL Cholesterol HDL >or= 60 mg/dL High HDL Cholesterol Performed By: #### L 500.4050, L502.0250, L100.0100, L506.1000, L500.4100 ####[facility] [address] [place], [address] Cholesterol in LDL [Mass/Vol] 49 mg/dL Normal 0-130 [facility] Comment on above: Order Comment: Order Date: 04/02/24Order Info: [id number] - CMPOrder Info: [id number] - LIPID Performed By: #### L 500.4050, L502.0250, L100.0100, L506.1000, L500.4100 ####[facility] [address] [place], [address] Cholesterol in VLDL [Mass/Vol] 25 mg/dL Normal 5-40 [facility] Comment on above: Order Comment: Order Date: 04/02/24Order Info: [id number] - CMPOrder Info: [id number] - LIPID Performed By: #### L 500.4050, L502.0250, L100.0100, L506.1000, L500.4100 ####[facility] [address] [place], [address] Triglyceride [Mass/Vol] 124 mg/dL Normal [facility] Comment on above: Order Comment: Order Date: 04/02/24Order Info: [id number] - CMPOrder Info: [id number] - LIPID Result Comment: The drugs N-Acetylcysteine and Metamizole may falselydepress this assay.Serum Triglycerides Reference Interval Normal <150 mg/dL Borderline high 150 - 199 mg/dL High 200 - 499 mg/dL Very High > or = 500 mg/dL Performed By: #### L 500.4050, L502.0250, L100.0100, L506.1000, L500.4100 ####[facility] [address] [place], [address] Microalb:Creat Ratio,Random URon 04-02-2024 Creatinine [Mass/Vol] 83.10 mg/dL Normal NO RANGE EST. [facility] Comment on above: Order Comment: Order Date: 04/02/24Order Info: [id number] - MIACRE Performed By: #### L 500.4050, L502.0250, L100.0100, L506.1000, L500.4100 ####[facility] [address] [place], [address] MALB:CRE 31.9 mg/g CRE High <30 mg/g CRE [facility] Comment on above: Order Comment: Order Date: 04/02/24Order Info: [id number] - MIACRE Performed By: #### L 500.4050, L502.0250, L100.0100, L506.1000, L500.4100 ####[facility] [address] [place], [address] MICROALBUMIN,UR 26.5 mg/L Normal NO RANGE EST. [facility] Comment on above: Order Comment: Order Date: 04/02/24Order Info: [id number] - MIACRE Performed By: #### L 500.4050, L502.0250, L100.0100, L506.1000, L500.4100 ####[facility] [address] [place], [address] Urinalysis, Completeon 04-02 BACTERIA 0 SEEN Normal None Seen [facility] Comment on above: Order Comment: CLEAN CATCH Performed By: #### L 400.0001, L503.6030, L503.6550 ####[facility] [address] [place], [address] EPI,SQUAMOUS 0 SEEN Normal 5-10 [facility] Comment on above: Order Comment: CLEAN CATCH Performed By: #### L 400.0001, L503.6030, L503.6550 ####[facility] [address] [place], [address] Mucus Ql (Urine sed) 0 SEEN Normal [facility] Comment on above: Order Comment: CLEAN CATCH Performed By: #### L 400.0001, L503.6030, L503.6550 ####[facility] [address] [place], [address] RBC 0 SEEN Normal 0-5 [facility] Comment on above: Order Comment: CLEAN CATCH Performed By: #### L 400.0001, L503.6030, L503.6550 ####[facility] [address] [place], [address] WBC 0 SEEN Normal 0-5 [facility] Comment on above: Order Comment: CLEAN CATCH Performed By: #### L 400.0001, L503.6030, L503.6550 ####[facility] [address] [place], [address] Vitamin D,25 Hydroxyon 04-02 Vitamin D 25-OH 28.4 ng/mL Normal [facility] Comment on above: Order Comment: Order Date: 04/02/24Order Info: [id number] - VITD25 Result Comment: Yessenia min D 25(OH) Status Range Deficiency <20 ng/mL (50nmol/L) Insufficiency 20 - 30 ng/mL (50 - 75 nmol/L) Sufficiency 30 - 100 ng/mL (75 - 250 nmol/L) Toxicity >100 ng/mL (>250 nmol/L) Performed By: #### L 500.4050, L502.0250, L100.0100, L506.1000, L500.4100 ####[facility] [address] [place], [address] MR/BMS.BPon 03-18-2024 MR/BMS.BP Normal [facility] MR/BMS.BPon 01-22-2024 MR/BMS.BP Normal [facility] Miscellaneous Lab Procedureo n 12-19-2023 MISC LAB TEST Normal [facility] Comment on above: Order Comment: [id number] WB RF LAV(EDTA)[id number] RETICULOCYTE COUNT WB RF LAV(EDTA) Result Comment: TEST RESULTS LIMITSReticulocyte Count 1.5 % 0.6-2.6 TESTING PERFORMED AT [facility]. ORIGINAL REPORT ON FILE IN LAB CONTAINS ADDITIONAL TEST SITE INFORMATION. __ Performed By: #### L 503.0105, L503.6550, L801.1541, L506.0250, L503.6030 ####[facility] [address] [place], [place], [address] Ferritinon 12-16-2023 Ferritin [Mass/Vol] 22 ng/mL Normal 8-252 [facility] Comment on above: Order Comment: N Performed By: #### L 503.0105, L503.6550, L801.1541, L506.0250, L503.6030 ####[facility] [address] [place], [place], [address] Folates, (Folic Acid)on FOLATES 97.40 ng/mL High 3.1-55.4 [facility] Comment on above: Order Comment: N Performed By: #### L 503.0105, L503.6550, L801.1541, L506.0250, L503.6030 ####[facility] [address] [place], [place], [address] Iron+Iron Binding Capacityon 12-16-2023 Iron [Mass/Vol] 114 ug/dL Normal 50-170 [facility] Comment on above: Order Comment: N Performed By: #### L 503.0105, L503.6550, L801.1541, L506.0250, L503.6030 ####[facility] [address] [place], [address] IRON SATURATION 29.1 Normal 15.0-55.0 [facility] Comment on above: Order Comment: N Performed By: #### L 503.0105, L503.6550, L801.1541, L506.0250, L503.6030 ####[facility] [address] [place], [address] TIBC 392 ug/dL Normal 250-450 [facility] Comment on above: Order Comment: N Performed By: #### L 503.0105, L503.6550, L801.1541, L506.0250, L503.6030 ####[facility] [address] [place], [address] Vitamin B12on 12-16-2023 Cobalamin (Vitamin B12) [Mass/Vol] 478 pg/mL Normal 211-911 [facility] Comment on above: Performed By: #### L 503.0105, L503.6550, L801.1541, L506.0250, L503.6030 ####[facility] [address] [place], [address] MRSA/SAID NASAL SCREENon MRSA+SAID SCRN Reason for Exam: PRE OP MRSA MRSA Negative S. AUREUS S. aureus Negative Normal [facility] Comment on above: Performed By: #### L 100.0100, L501.1800, L501.9985, M100.651, L500.2500 ####[facility] [address] [place], [address] 12 Lead EKGon 12-12-2023 12 Lead EKG Normal [facility] Albumin, Serumon 12-12-2023 Albumin [Mass/Vol] 3.9 g/dL Normal 3.2-5.0 [facility] Comment on above: Performed By: #### L 100.0100, L501.1800, L501.9985, M100.651, L500.2500 ####[facility] [address] [place], [address] Basic Metabolic Profile (BMP )on 12-12-2023 BUN/CRE 14.1 RATIO Normal 10-20 [facility] Comment on above: Performed By: #### L 100.0100, L501.1800, L501.9985, M100.651, L500.2500 ####[facility] [address] [place], [address] CA,Total 9.5 mg/dL Normal 8.5-10.1 [facility] Comment on above: Performed By: #### L 100.0100, L501.1800, L501.9985, M100.651, L500.2500 ####[facility] [address] [place], [address] Chloride [Moles/Vol] 99 mmol/L Normal 98-107 [facility] Comment on above: Performed By: #### L 100.0100, L501.1800, L501.9985, M100.651, L500.2500 ####[facility] [address] [place], [address] CO2 [Moles/Vol] 30.0 mmol/L Normal 21.0-32.0 [facility] Comment on above: Performed By: #### L 100.0100, L501.1800, L501.9985, M100.651, L500.2500 ####[facility] [address] [place], [address] Creatinine [Mass/Vol] 0.92 mg/dL Normal 0.55-1.02 [facility] Comment on above: Result Comment: The validity of the calculated GFR GFRAA in patients over70 years has not been determined. Clinical correlation isessential. Performed By: #### L 100.0100, L501.1800, L501.9985, M100.651, L500.2500 ####[facility] [address] [place], [address] EST GFR - AA 75 mL/min Normal >60 [facility] Comment on above: Result Comment: Afri can Brazilian GFR Calc Performed By: #### L 100.0100, L501.1800, L501.9985, M100.651, L500.2500 ####[facility] [address] [place], [address] GAP 6 Normal 5-15 [facility] Comment on above: Performed By: #### L 100.0100, L501.1800, L501.9985, M100.651, L500.2500 ####[facility] [address] [place], [address] GFR/1.73 sq M.predicted among non-blacks MDRD (S/P/Bld) [Vol rate/Area] 62 mL/min/{1.73_m2} Normal >60 [facility] Comment on above: Result Comment: Non- GFR Calc Performed By: #### L 100.0100, L501.1800, L501.9985, M100.651, L500.2500 ####[facility] [address] [place], [address] Glucose [Mass/Vol] 297 mg/dL High 74-106 [facility] Comment on above: Result Comment: Gluc ose result greater than or equal to 200 mg/dLsuggests DIABETES MELLITUS per A.D.A. criteria. Performed By: #### L 100.0100, L501.1800, L501.9985, M100.651, L500.2500 ####[facility] [address] [place], [address] Potassium [Moles/Vol] 4.1 mmol/L Normal 3.5-5.1 [facility] Comment on above: Performed By: #### L 100.0100, L501.1800, L501.9985, M100.651, L500.2500 ####[facility] [address] [place], [address] Sodium [Moles/Vol] 135 mmol/L Low 136-145 [facility] Comment on above: Performed By: #### L 100.0100, L501.1800, L501.9985, M100.651, L500.2500 ####[facility] [address] [place], [address] Urea nitrogen [Mass/Vol] 13 mg/dL Normal 7-18 [facility] Comment on above: Performed By: #### L 100.0100, L501.1800, L501.9985, M100.651, L500.2500 ####[facility] [address] [place], [address] CBC W/Diff, Automatedon 10-0 4-2023 Absolute Lymph 1.87 X10 3/uL Normal 0.83-4.51 [facility] Comment on above: Performed By: #### L 100.0100, L501.1800, L501.9985, M100.651, L500.2500 ####[facility] [address] [place], [address] Absolute Neut 3.5 X10 3/uL Normal 2.0-7.7 [facility] Comment on above: Performed By: #### L 100.0100, L501.1800, L501.9985, M100.651, L500.2500 ####[facility] [address] [place], [address] Basophils/100 WBC (Bld) 1.1 % High 0-1 [facility] Comment on above: Performed By: #### L 100.0100, L501.1800, L501.9985, M100.651, L500.2500 ####[facility] [address] [place], [address] Eosinophils/100 WBC (Bld) 6.9 % High 0-5 [facility] Comment on above: Performed By: #### L 100.0100, L501.1800, L501.9985, M100.651, L500.2500 ####[facility] [address] [place], [address] Erythrocyte distribution width (RBC) [Ratio] 13.8 % Normal 11.6-14.6 [facility] Comment on above: Performed By: #### L 100.0100, L501.1800, L501.9985, M100.651, L500.2500 ####[facility] [address] [place], [address] Hematocrit (Bld) [Volume fraction] 36.2 % Low 37-47 [facility] Comment on above: Performed By: #### L 100.0100, L501.1800, L501.9985, M100.651, L500.2500 ####[facility] [address] [place], [address] Hemoglobin (Bld) [Mass/Vol] 11.1 g/dL Low 12.0-15.0 [facility] Comment on above: Performed By: #### L 100.0100, L501.1800, L501.9985, M100.651, L500.2500 ####[facility] [address] [place], [address] IG% 0.300 Normal 0.0-0.9 [facility] Comment on above: Result Comment: IG% - Immature Granulocytes (promyelocytes, myelocytes andmetamyelocytes) > 1% indicates that a LEFT SHIFT is Present. Performed By: #### L 100.0100, L501.1800, L501.9985, M100.651, L500.2500 ####[facility] [address] [place], [address] Lymphocytes/100 WBC (Bld) 29.3 % Normal 19-41 [facility] Comment on above: Performed By: #### L 100.0100, L501.1800, L501.9985, M100.651, L500.2500 ####[facility] [address] [place], [address] MCH (RBC) [Entitic mass] 25.8 pg Low 27.0-32.0 [facility] Comment on above: Performed By: #### L 100.0100, L501.1800, L501.9985, M100.651, L500.2500 ####[facility] [address] [place], [address] MCHC (RBC) [Mass/Vol] 30.7 g/dL Low 32-36 [facility] Comment on above: Performed By: #### L 100.0100, L501.1800, L501.9985, M100.651, L500.2500 ####[facility] [address] [place], [address] MCV (RBC) [Entitic vol] 84.2 fL Normal 81-99 [facility] Comment on above: Performed By: #### L 100.0100, L501.1800, L501.9985, M100.651, L500.2500 ####[facility] [address] [place], [address] Monocytes/100 WBC (Bld) 7.4 % Normal 0-10 [facility] Comment on above: Performed By: #### L 100.0100, L501.1800, L501.9985, M100.651, L500.2500 ####[facility] [address] [place], [address] Neutrophils/100 WBC (Bld) 55.0 % Normal 47-70 [facility] Comment on above: Performed By: #### L 100.0100, L501.1800, L501.9985, M100.651, L500.2500 ####[facility] [address] [place], [address] Nucleated RBC (Bld) [#/Vol] 0 10*3/uL Normal 0-5 [facility] Comment on above: Performed By: #### L 100.0100, L501.1800, L501.9985, M100.651, L500.2500 ####[facility] [address] [place], [address] Platelet mean volume (Bld) [Entitic vol] 12.3 fL High 6.2-12.0 [facility] Comment on above: Performed By: #### L 100.0100, L501.1800, L501.9985, M100.651, L500.2500 ####[facility] [address] [place], [address] Platelets (Bld) [#/Vol] 218 10*3/uL Normal 150-450 [facility] Comment on above: Performed By: #### L 100.0100, L501.1800, L501.9985, M100.651, L500.2500 ####[facility] [address] [place], [address] RBC (Bld) [#/Vol] 4.30 10*6/uL Normal 4.2-5.4 [facility] Comment on above: Performed By: #### L 100.0100, L501.1800, L501.9985, M100.651, L500.2500 ####[facility] [address] [place], [address] RDW SD 42.5 fl Normal 35.1-43.9 [facility] Comment on above: Performed By: #### L 100.0100, L501.1800, L501.9985, M100.651, L500.2500 ####[facility] [address] [place], [address] WBC (Bld) [#/Vol] 6.4 10*3/uL Normal 4.4-11.0 [facility] Comment on above: Performed By: #### L 100.0100, L501.1800, L501.9985, M100.651, L500.2500 ####[facility] [address] [place], [address] Extremity Upper without Cont raon 12-12-2023 Extremity Upper without Contra Normal [facility] Hemoglobin A1con 12-12-2023 HbA1c (Bld) [Mass fraction] 10.6 % High 3.8-5.6 [facility] Comment on above: Result Comment: Norm al < 5.7 % Prediabetic 5.7 - 6.4 % Diabetic >or= 6.5 % Please note range changes. Performed By: #### L 100.0100, L501.1800, L501.9985, M100.651, L500.2500 ####[facility] [address] [place], [address] Magnesiumon 12-12-2023 Magnesium [Mass/Vol] 1.5 mg/dL Low 1.6-2.6 [facility] Comment on above: Performed By: #### L 501.5200 ####[facility] [address] [place], [address] CARECOORDon 03-19-2023 [place]OORD Patient Choice Patient Name: KARRI PIEDRA Date of : 1940 [facility] CARECOORDon 02-26-2023 [place] Next Site of Care Admission Date: 02/18/2023 06:15 PM Patient Name: KARRI PIEDRA [facility] [id number] Date of : 1940 Placement Information Referral Type:Longterm/SNF - New Referral ID:[id number] Provider Name:[facility] Address 1:[address] [facility] Phone Number: Address 2: Fax Number: [facility]:Jada Selection Factors:Patient/Family Choice State:[facility] CAR[place]ORD Spoke to admissions [facility] patient has been approved to be admitted. Spoke to patient's spouse Sami and son Aaron both expressed support for plan to be transferred later today. Updated patient she expressed support for plan denies thoughts of self-harm. All the above aware patient will be transported via ambulance to the [facility]. [facility] CARECOORD Discharge transporta t[facility]. Will inform Emerson Moeller SW, unit staff and [facility]. [facility] IDNon 02-26-2023 IDN Problem: Knowledge D eficit [...] Problem Interventions Goal: Dietary Supplements Outcome: Progressing [facility] Progress Noteon 02-26-2023 Progress Note Security and ambulan ce transport services here to take patient to [facility]. 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 Patient agrees with discharge to facility. [facility] Progress Note Report called to [facility] Progress Note Medical bed : decrea [...] with help. PRN's: none so far. Normal [facility] Progress Note PHYSICAL THERAPY [facility] Treatment Note Name/MRN: Karri Piedra ([id number]) Date of : 1940 Age: 83 y.o. Room/Bed: S4-113/S4-113 A Discharge Recommendation: [facility] Facility, Patient would benefit from continued therapy [...] Minutes (gait, FA) Lauren Arvizu, PT Normal [facility] Progress Note Patient refused AM l ab draw. Rescheduled to 02/27/23 Normal [facility] CARECOORDon 02-25-2023 [facility], updated, fam at tempting to find facility in [place] Normal [facility] [place] TCT son, l/m Normal [facility] TCT , l/m #3 Normal [facility] CBC WITH AUTO DIFFERENTIALon 02-25-2023 Basophils (Bld) [#/Vol] 0.0 10*3/uL Normal 0.0-0.2 [facility] Comment on above: Performed By: #### L AB18, [id number] #### [employer]: ION MOURA ([id number]) [facility] ([facility]) [address] [place] [address] Basophils/100 WBC (Bld) 0.2 % Normal 0.0-2.0 [facility] Comment on above: Performed By: #### L AB18, [id number] #### [employer]: ION MOURA ([id number]) [facility] ([facility]) [address] [place] [address] Eosinophils (Bld) [#/Vol] 0.2 10*3/uL Normal 0.0-0.5 [facility] Comment on above: Performed By: #### L AB18, [id number] #### [employer]: ION MOURA ([id number]) [facility] ([facility]) [address] [place] [address] Eosinophils/100 WBC (Bld) 2.2 % Normal 1.0-6.0 [facility] Comment on above: Performed By: #### L AB18, [id number] #### [employer]: ION MOURA ([id number]) [facility]) [address] [place] [address] Erythrocyte distribution width (RBC) [Ratio] 15.3 % High 11.5-14.5 [facility] Comment on above: Performed By: #### L AB18, [id number] #### [employer]: ION MOURA ([id number]) [facility]) [address] [place] [address] ERYTHROCYTE MEAN CORPUSCULAR HEMOGLOBIN CONCENTRATION (G/DL) BY AUTOMATED 33.3 % Normal 32.0-36.0 [facility] Comment on above: Performed By: #### L AB18, [id number] #### [employer]: ION MOURA ([id number]) [facility]) [address] [place] [address] Hematocrit (Bld) [Volume fraction] 36.5 % Normal 35.0-47.0 [facility] Comment on above: Performed By: #### L AB18, [id number] #### [employer]: ION MOURA ([id number]) [facility]) [address] [place] [address] Hemoglobin (Bld) [Mass/Vol] 12.2 g/dL Normal 11.7-16.0 [facility] Comment on above: Performed By: #### L AB18, [id number] #### [employer]: ION MOURA ([id number]) [facility] ([facility]) [address] [place] [address] Lymphocytes (Bld) [#/Vol] 1.8 10*3/uL Normal 1.0-4.3 [facility] Comment on above: Performed By: #### L AB18, [id number] #### [employer]: ION MOURA ([id number]) [facility]) [address] [place] [address] Lymphocytes/100 WBC (Bld) 25.9 % Normal 20.0-40.0 [facility] Comment on above: Performed By: #### L AB18, [id number] #### [employer]: ION MOURA ([id number]) [facility]) [address] [place] [address] MCH (RBC) [Entitic mass] 28.8 pg Normal 26.0-34.0 [facility] Comment on above: Performed By: #### L AB18, [id number] #### [employer]: ION MOURA ([id number]) [facility] ([facility]) [address] [place] [address] MCV (RBC) [Entitic vol] 86.3 fL Normal 80.0-98.0 [facility] Comment on above: Performed By: #### L AB18, [id number] #### [employer]: ION MOURA ([id number]) [facility]) [address] [place] [address] Monocytes (Bld) [#/Vol] 0.5 10*3/uL Normal 0.0-0.8 [facility] Comment on above: Performed By: #### L AB18, [id number] #### [employer]: ION MOURA ([id number]) [facility]) [address] [place] [address] Monocytes/100 WBC (Bld) 7.2 % Normal 2.0-10.0 [facility] Comment on above: Performed By: #### L AB18, [id number] #### [employer]: ION MOURA ([id number]) [facility] ([facility]) [address] [place] [address] Neutrophils (Bld) [#/Vol] 4.5 10*3/uL Normal 1.8-7.0 [facility] Comment on above: Performed By: #### L AB18, [id number] #### [employer]: ION MOURA ([id number]) [facility] ([facility]) [address] [place] [address] Neutrophils/100 WBC (Bld) 64.5 % Normal 40.0-80.0 [facility] Comment on above: Performed By: #### L AB18, [id number] #### [employer]: ION MOURA ([id number]) [facility]) [address] [place] [address] NRBC (PER 100 WBCS) BY AUTOMATED COUNT 0.0 /100 WBCs Normal 0.0-2.0 [facility] Comment on above: Performed By: #### L AB18, [id number] #### [employer]: ION MOURA ([id number]) [facility] ([facility]) [address] [place] [address] Platelet mean volume (Bld) [Entitic vol] 9.1 fL Normal 7.4-12.4 [facility] Comment on above: Performed By: #### L AB18, [id number] #### [employer]: ION MOURA ([id number]) [facility] ([facility]) [address] [place] [address] [place] Platelets (Bld) [#/Vol] 273 10*3/uL Normal 140-440 [facility] Comment on above: Performed By: #### L AB18, [id number] #### [employer]: ION MOURA ([id number]) [facility]) [address] [place] [address] [place] RBC (Bld) [#/Vol] 4.23 10*6/uL Normal 3.8-5.20 [facility] Comment on above: Performed By: #### L AB18, [id number] #### [employer]: ION MOURA ([id number]) [facility] ([facility]) [address] [place] [address] WBC (Bld) [#/Vol] 7.0 10*3/uL Normal 3.6-10.7 [facility] Comment on above: Performed By: #### L AB18, [id number] #### [employer]: ION MOURA ([id number]) [facility] ([facility]) [address] [place] [address] COMPREHENSIVE METABOLIC PANE Lenin 02-25-2023 Albumin [Mass/Vol] 3.8 g/dL Normal 3.5-5.0 [facility] Comment on above: Performed By: #### L AB18, [id number] #### [employer]: ION MOURA ([id number]) [facility] ([facility]) [address] [place] [address] ALP [Catalytic activity/Vol] 80 U/L Normal 38-126 [facility] Comment on above: Performed By: #### L AB18, [id number] #### [employer]: ION MOURA ([id number]) [facility] ([facility]) [address] [place] [address] ALT [Catalytic activity/Vol] 35 U/L High 0-34 [facility] Comment on above: Performed By: #### L AB18, [id number] #### [employer]: ION MOURA ([id number]) [facility] ([facility]) [address] [place] [address] Anion gap [Moles/Vol] 9 mmol/L Normal 3-13 [facility] Comment on above: Performed By: #### L AB18, [id number] #### [employer]: ION MOURA ([id number]) [facility] ([facility]) [address] [place] [address] AST [Catalytic activity/Vol] 39 U/L Normal 15-46 [facility] Comment on above: Performed By: #### L AB18, [id number] #### [employer]: ION MOURA ([id number]) [facility] ([facility]) [address] [place] [address] Bilirubin [Mass/Vol] 0.3 mg/dL Normal 0.2-1.3 [facility] Comment on above: Performed By: #### L AB18, [id number] #### [employer]: ION MOURA ([id number]) [facility] ([facility] [address] [place] [address] Calcium [Mass/Vol] 9.3 mg/dL Normal 8.4-10.4 [facility] Comment on above: Performed By: #### L AB18, [id number] #### [employer]: ION MOURA ([id number]) [facility] ([facility]) [address] [place] [address] Chloride [Moles/Vol] 102 mmol/L Normal 98-107 [facility] Comment on above: Performed By: #### L AB18, [id number] #### [employer]: ION MOURA ([id number]) [facility] ([facility]) [address] [place] [address] CO2 [Moles/Vol] 23 mmol/L Normal 22-30 [facility] Comment on above: Performed By: #### L AB18, [id number] #### [employer]: ION MOURA ([id number]) [facility] ([facility]) [address] [place] [address] Creatinine [Mass/Vol] 0.49 mg/dL Low 0.52-1.04 [facility] Comment on above: Performed By: #### L AB18, [id number] #### [employer]: ION MOURA ([id number]) [facility] ([facility]) [address] [place] [address] GLOMERULAR FILTRATION RATE ML/MIN/1.73 SQ M.PREDICTED >90.0 Normal >60.0 [facility] Comment on above: Result Comment: Calc ulation based on the Chronic Kidney Disease Epidemiology Collaboration (CKD-EPI) equation refit without adjustment for race Performed By: #### L AB18, [id number] #### [employer]: ION MOURA ([id number]) [facility] ([facility]) [address] [place] [address] Glucose [Mass/Vol] 172 mg/dL High 70-100 [facility] Comment on above: Performed By: #### L AB18, [id number] #### [employer]: INO MOURA ([id number]) [facility]) [address] [place] [address] Potassium [Moles/Vol] 4.4 mmol/L Normal 3.5-5.1 [facility] Comment on above: Performed By: #### L AB18, [id number] #### [employer]: ION MOURA ([id number]) [facility]) [address] [place] [address] Protein [Mass/Vol] 6.8 g/dL Normal 6.3-8.2 [facility] Comment on above: Performed By: #### L AB18, [id number] #### [employer]: ION MOURA ([id number]) [facility] ([facility]) [address] [place] [address] Sodium [Moles/Vol] 134 mmol/L Low 135-145 [facility] Comment on above: Performed By: #### L AB18, [id number] #### [employer]: ION MOURA ([id number]) [facility]) [address] [place] [address] Urea nitrogen [Mass/Vol] 15 mg/dL Normal 7-17 [facility] Comment on above: Performed By: #### L AB18, [id number] #### [employer]: ION MOURA ([id number]) [facility]) [address] [place] [address] Consulton 02-25-2023 Consult [facility] - Infectious Diseases Advanced [...] Arjun Cornell MD 40 mg at 02/24/23 215 deutetrabenazine (Austedo) tablet 9 mg (patient's own [...] injection 0-6 Units 0-6 Units SubCUTAneous Nightly BREANNE Gan CNP lisinopril tablet 20 mg 20 mg [...] PRN Yumiko Gasca MD 50 mg at 02/24/232157 Allergies: Allergies Allergen Reactions Codeine Rash Morphine [...] Insecurity (02/19/2023) [place] (more content not included)... [facility] Consult Department of Money Manager al Medicine Gastroenterology Attending Consult Note Reason [...] Oral, 2 times per day, Beatriz Kain, EXPEDITER CLERK - SUPERVISOR WATERPROOFING, 500 mg at 02/24/232218 deutetrabenazine (Austedo) tablet [...] Nightly, Arjun Cornell MD, 18 Units at 02/24/23 2157 [Held by provider] Insulin Lispro (Humalog) injection [...] mg, 500 mg, Oral, q8h, Beatriz Kain, EXPEDITER CLERK - SUPERVISOR WATERPROOFING, 500 mg at 02/25/23 0633 mirtazapine (Remeron) [...] PRN, Yumiko Gasca MD, 50 mg at 02/24/238 Past Medical History: Active Ambulatory Problems Diagnosis [...] Health Fin (more content not included)... Normal [facility] GROUPNOTEon 02-25-2023 GROUPNOTE Department: [facility]ER[facility] Group Topic: Other Group Date: 02/25/2023 Start Time: 1630 End Time: 1700 Facilitators: Spring Killian Number of Participants: 3 Group Name: word search puzzles Treatment Modality: Leisure Development Purpose: enhance coping skills Summary: To expose patients to healthy leisure outlets. Name: Karri Piedra Date of : 1940 MR: [id number] Mental Status Exam: Appearance: Good eye contact Affect: Restricted Behavior: Pleasant Alertness: Alert Speech: Appropriate Cognition: [place] Level/Quality of Participation: engaged Interactions with others: [...] Dysphagia Confusion Chronic insomnia Tardive dyskinesia Normal [facility] IDNon 02-25-2023 IDN Problem: Knowledge D [...] Interventions Goal: Dietary Supplements Outcome: Progressing Normal [facility] Progress Noteon 02-25-2023 Progress Note Patient [...] Denies any other questions or concerns. Call ligth within reach. Q 15 min safety checks maintained. [facility] Progress Note Pt A&Ox2-3. Pt calm and cooperative, anxious and forgetful at times. Pt compliant with meds crushed. Pt denies pain and denies SI/HI/AVH. Pt x1 assist to wheelchair, continent, and somewhat dependent of ADL's. Pt reports fair sleep and eating about 75% of meals. Opportunity given for questions and concerns to be expressed. Safety maintained, will continue to monitor pt. [facility] Progress Note PHYSICAL THERAPY [facility] Name/MRN: Karri Piedra ([id number]) Date: 02/25/2023 PT treatment attempted 02/25. Withheld due to pt stating she was awaiting to discharge within 20 minutes. Senia Morrell, SPT [facility] Progress Note Handing over report of this pt received from EYAL Cavazos. I am now taking care of this pt till the end of this shift [facility] Progress Note Pt Sami rios nd Daughter [...] RN will report to AM family practice doctor's concerns. [facility] CARECOORDon 2023 CAR[place]OORD Spoke to patient's h rubia Gallardo multiple times throughout the day. Talked about his preferences for placement. [facility]. Other facilities he requested have either not responded in care port or have declined. [facility] CT ABDOMEN PELVIS WO IV CONT RASTon 2023 CT ABDOMEN PELVIS WO IV CONTRAST [facility] 1940 [id number] Exam Date/Time: 2023 11:35 Procedure: CT ABDOMEN [...] 2023 12:59 PM EST LLQ PAIN Normal [facility] IDNon 2023 IDN Problem: Knowledge D [...] Interventions Goal: Dietary Supplements Outcome: Progressing Normal [facility] IDN Problem: Knowledge D eficit Goal: [...] Interventions Goal: Dietary Supplements Outcome: Progressing Normal [facility] Nursing Noteon 2023 Nursing Note Patient [...] are stable see flow sheet. Notified Beatriz Kain POLISHER APPRENTICE that CT of her abdomen is resulted now at 1416 in secure chat. Normal [facility] Progress Noteon 2023 Progress Note Patient [...] times. Reports she's willing to go to [facility] for longer observations if needed to be [facility] [...] any abdominal discomfort at this time. Normal [facility] Progress Note TCT lm Normal [facility] Progress Note Patient fixated on b [...] that we have to wait on the automatic drill operator to connect the call. Safety maintained Normal [facility] CARECOORDon 02-23-2023 CAR[place]OORD IMM letter givne to patient. Normal [facility] COMPREHENSIVE METABOLIC PANE Lenin 02-23-2023 Albumin [Mass/Vol] 3.9 g/dL Normal 3.5-5.0 [facility] Comment on above: Performed By: #### L AB18, [id number] #### [employer]: ION MOURA ([id number]) [address] ALP [Catalytic activity/Vol] 78 U/L Normal 38-126 [facility] Comment on above: Performed By: #### L AB18, [id number] #### [employer]: ION MOURA ([id number]) [facility] ([facility]) [address] [place] [address] ALT [Catalytic activity/Vol] 39 U/L High 0-34 [facility] Comment on above: Performed By: #### L AB18, [id number] #### [employer]: ION [id number]) [address] Anion gap [Moles/Vol] 8 mmol/L Normal 3-13 [facility] Comment on above: Performed By: #### L AB18, [id number] #### [employer]: ION [id number]) [facility] [address] [place] [address] [place] AST [Catalytic activity/Vol] 41 U/L Normal 15-46 [facility] Comment on above: Performed By: #### L AB18, [id number] #### [employer] Sprayer: ION MOURA ([id number]) [facility] ([facility] [address] [place] [address] [place] Bilirubin [Mass/Vol] 0.5 mg/dL Normal 0.2-1.3 [facility] Comment on above: Performed By: #### L AB18, [id number] #### [employer] Sprayer: ION MOURA ([id number]) [facility] ([facility] [address] [place] [address] Calcium [Mass/Vol] 9.4 mg/dL Normal 8.4-10.4 [facility] Comment on above: Performed By: #### L AB18, [id number] #### [employer] Sprayer: ION MOURA ([id number]) [facility] ([facility] [address] [place] [address] [place] Chloride [Moles/Vol] 101 mmol/L Normal 98-107 [facility] Comment on above: Performed By: #### L AB18, [id number] #### [employer] Sprayer: ION MOURA ([id number]) [facility] ([facility] [address] [place] [address] [place] CO2 [Moles/Vol] 25 mmol/L Normal 22-30 [facility] Comment on above: Performed By: #### L AB18, [id number] #### [employer] Sprayer: ION MOURA ([id number]) [facility] ([facility] [address] [place] [address] [place] Creatinine [Mass/Vol] 0.44 mg/dL Low 0.52-1.04 [facility] Comment on above: Performed By: #### L AB18, [id number] #### [employer] Sprayer: ION MOURA ([id number]) [facility] ([facility]) [address] [place] [address] [place] GLOMERULAR FILTRATION RATE ML/MIN/1.73 SQ M.PREDICTED >90.0 Normal >60.0 [facility] Comment on above: Result Comment: Calc ulation based on the Chronic Kidney Disease Epidemiology Collaboration (CKD-EPI) equation refit without adjustment for race Performed By: #### L AB18, [id number] #### [employer] Sprayer: ION MOURA ([id number]) [facility]) [address] [place] [address] Glucose [Mass/Vol] 185 mg/dL High 70-100 [facility] Comment on above: Performed By: #### L AB18, [id number] #### [employer] Sprayer: ION MOURA ([id number]) [facility]) [address] [place] [address] Potassium [Moles/Vol] 4.0 mmol/L Normal 3.5-5.1 [facility] Comment on above: Performed By: #### L AB18, [id number] #### [employer] Sprayer: ION MOURA ([id number]) [facility]) [address] [place] [address] Protein [Mass/Vol] 6.9 g/dL Normal 6.3-8.2 [facility] Comment on above: Performed By: #### L AB18, [id number] #### [employer] Sprayer: ION MOURA ([id number]) [facility]) [address] [place] [address] Sodium [Moles/Vol] 134 mmol/L Low 135-145 [facility] Comment on above: Performed By: #### L AB18, [id number] #### [employer] Sprayer: ION MOURA ([id number]) [facility]) [address] [place] [address] [place] Urea nitrogen [Mass/Vol] 11 mg/dL Normal 7-17 [facility] Comment on above: Performed By: #### L AB18, [id number] #### [employer] Sprayer: ION MOURA ([id number]) [facility]) [address] [place] [address] [place] IDNon 02-23-2023 IDN Problem: Knowledge D [...] Interventions Goal: Dietary Supplements Outcome: Progressing Normal [facility] Progress Noteon 02-23-2023 Progress Note Unable [...] to at sink to brush teeth. Normal [facility] Progress Note Urine sample collect ed, Dr. Blair notified of results. Patient continues to c/o pain to left lower abdomin, KUB and CMP ordered per Dr. Blair. Patient with diarrhea x4 episodes, c.diff and GI panel ordered, to be collected if pt continues with diarrhea. Safety maintained Normal [facility] COMPLETE URINALYSISon 2022 BACTERIA (#/HPF) IN URINE Few Abnormal Negative [facility] Comment on above: Performed By: #### L AB18, [id number] #### [employer] Sprayer: ION MUORA ([id number]) [address] BILIRUBIN, TOTAL PRESENCE IN URINE Negative Normal Negative [facility] Comment on above: Performed By: #### L AB18, [id number] #### [employer] Sprayer: ION MOURA ([id number]) [facility]) [address] [place] [address] Clarity (U) Clear Normal Clear [facility] Comment on above: Performed By: #### L AB18, [id number] #### [employer] Sprayer: ION MOURA ([id number]) [facility]) [address] [place] [address] Color (U) Colorless Normal Lt. Yellow [facility] Comment on above: Performed By: #### L AB18, [id number] #### [employer] Sprayer: ION MOURA ([id number]) [facility] ([facility]) [address] [place] [address] GLUCOSE (MG/DL) IN URINE Normal Normal Normal (<70) [facility] Comment on above: Performed By: #### L AB18, [id number] #### [employer] Sprayer: ION MOURA ([id number]) [facility]) [address] [place] [address] HEMOGLOBIN PRESENCE IN URINE Negative Normal Negative [facility] Comment on above: Performed By: #### L AB18, [id number] #### [employer] Sprayer: ION MOURA ([id number]) [facility] ([facility]) [address] [place] [address] HYALINE CASTS (#/LPF) IN URINE SEDIMENT BY MICROSCOPY Negative Normal Negative [facility] Comment on above: Performed By: #### L AB18, [id number] #### [employer] Sprayer: ION MOURA ([id number]) [facility] ([facility]) [address] [place] [address] Ketones Ql (U) Negative Normal Negative [facility] Comment on above: Performed By: #### L AB18, [id number] #### [employer] Sprayer: ION MOURA ([id number]) [facility] ([facility]) [address] [place] [address] LEUKOCYTE ESTERASE PRESENCE IN URINE BY TEST STRIP 75 Rosey/uL Abnormal Negative [facility] Comment on above: Performed By: #### L AB18, [id number] #### [employer] Sprayer: ION MOURA ([id number]) [facility] ([facility]) [address] [place] [address] [place] MUCUS (#/LPF) IN URINE SEDIMENT Few Normal Negative [facility] Comment on above: Performed By: #### L AB18, [id number] #### [employer] Sprayer: ION MOURA ([id number]) [facility] ([facility]) [address] [place] [address] NITRITE PRESENCE IN URINE Negative Normal Negative [facility] Comment on above: Performed By: #### L AB18, [id number] #### [employer] Sprayer: ION MOURA ([id number]) [facility] ([facility]) [address] [place] [address] pH (U) 6.0 [pH] Normal 5.0-8.0 [facility] Comment on above: Performed By: #### L AB18, [id number] #### [employer] Sprayer: ION MOURA ([id number]) [facility] ([facility]) [address] [place] [address] Protein (U) [Mass/Vol] Negative Normal Negative [facility] Comment on above: Performed By: #### L AB18, [id number] #### [employer] Sprayer: ION MOURA ([id number]) [facility] ([facility]) [address] [place] [address] RBC (#/HPF) IN URINE SEDIMENT 0-2 Normal 0-2 [facility] Comment on above: Performed By: #### L AB18, [id number] #### [employer] Sprayer: ION MOURA ([id number]) [facility] ([facility]) [address] [place] [address] Specific gravity (U) [Rel density] 1.007 Normal 1.005-1.030 [facility] Comment on above: Performed By: #### L AB18, [id number] #### [employer] Sprayer: ION MOURA ([id number]) [facility]) [address] [place] [address] SQUAMOUS EPITHELIAL CELLS (#/HPF) IN URINE SEDIMENT 0-2 Normal 3-5 [facility] Comment on above: Performed By: #### L AB18, [id number] #### [employer] Sprayer: ION MOURA ([id number]) [facility] ([facility]) [address] [place] [address] UROBILINOGEN (MG/DL) IN URINE Normal Normal Normal (0-1) [facility] Comment on above: Performed By: #### L AB18, [id number] #### [employer] Sprayer: ION MOURA ([id number]) [facility] ([facility]) [address] [place] [address]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 MOURA ([id number]) [facility] ([facility]) [address] [place] [address] Calcium [Mass/Vol] 9.9 mg/dL Normal 8.4-10.4 [facility] Comment on above: Performed By: #### L AB18, [id number] #### [employer]: ION MOURA ([id number]) [facility] ([facility]) [address] [place] [address] [place] Chloride [Moles/Vol] 104 mmol/L Normal 98-107 [facility] Comment on above: Performed By: #### L AB18, [id number] #### [employer]: ION MOURA ([id number]) [facility] ([facility]) [address] [place] [address] [place] CO2 [Moles/Vol] 26 mmol/L Normal 22-30 [facility] Comment on above: Performed By: #### L AB18, [id number] #### [employer]: ION MOURA ([id number]) [facility] ([facility]) [address] [place] [address] [place] Creatinine [Mass/Vol] 0.49 mg/dL Low 0.52-1.04 [facility] Comment on above: Performed By: #### L AB18, [id number] #### [employer]: ION MOURA ([id number]) [facility]) [address] [place] [address] GLOMERULAR FILTRATION RATE ML/MIN/1.73 SQ M.PREDICTED >90.0 Normal >60.0 [facility] Comment on above: Result Comment: Calc ulation based on the Chronic Kidney Disease Epidemiology Collaboration (CKD-EPI) equation refit without adjustment for race Performed By: #### L AB18, [id number] #### [employer]: ION MOURA ([id number]) [facility] ([facility]) [address] [place] [address] [place] Glucose [Mass/Vol] 163 mg/dL High 70-100 [facility] Comment on above: Performed By: #### L AB18, [id number] #### [employer]: ION MOURA ([id number]) [facility] ([facility]) [address] [place] [address] [place] Potassium [Moles/Vol] 4.0 mmol/L Normal 3.5-5.1 [facility] Comment on above: Performed By: #### L AB18, [id number] #### [employer]: ION MOURA ([id number]) [facility]) [address] [place] [address] Protein [Mass/Vol] 7.7 g/dL Normal 6.3-8.2 [facility] Comment on above: Performed By: #### L AB18, [id number] #### [employer]: ION MOURA ([id number]) [facility] ([facility]) [address] [place] [address] [place] Sodium [Moles/Vol] 137 mmol/L Normal 135-145 [facility] Comment on above: Performed By: #### L AB18, [id number] #### [employer]: ION MOURA ([id number]) [facility]) [address] [place] [address] [place] Urea nitrogen [Mass/Vol] 7 mg/dL Normal 7-17 [facility] Comment on above: Performed By: #### L AB18, [id number] #### [employer]: ION MOURA ([id number]) [facility]) [address] [place] [address] CT HEAD WO IV CONTRASTon CT HEAD [...] Signed Date/Time: 02/18/2023 9:02 PM EST Normal [facility] DRUGS OF ABUSEon 02-18-2023 AMPHETAMINE SCREEN Negative Normal [facility] Comment on above: Performed By: #### L AB18, [id number] #### [employer]: ION MOURA ([id number]) [facility] ([facility]) [address] [place] [address] BARBITURATES SCREEN Negative Normal [facility] Comment on above: Performed By: #### L AB18, [id number] #### [employer]: ION MOURA ([id number]) [facility] ([facility]) [address] [place] [address] BENZODIAZEPINE SCREEN Negative Normal [facility] Comment on above: Performed By: #### L AB18, [id number] #### [employer]: ION MOURA ([id number]) [facility] ([facility]) [address] [place] [address] COCAINE METAB. SCREEN Negative Normal [facility] Comment on above: Performed By: #### L AB18, [id number] #### [employer]: ION MOURA ([id number]) [facility] ([facility]) [address] [place] [address] METHADONE SCREEN Negative Normal [facility] Comment on above: Performed By: #### L AB18, [id number] #### [employer]: ION MOURA ([id number]) [facility] ([facility]) [address] [place] [address] OPIATES SCREEN Negative Normal [facility] Comment on above: Performed By: #### L AB18, [id number] #### [employer]: ION MOURA ([id number]) [facility] ([facility]) [address] [place] [address] OXYCODONE SCREEN Negative Normal [facility] Comment on above: Performed By: #### L AB18, [id number] #### [employer]: ION MOURA ([id number]) [facility] ([facility]) [address] [place] [address] PHENCYCLIDINE SCREEN Negative Normal [facility] Comment on above: Result Comment: JODI Slater COMMENTS: The expected value for all of [...] separate order. Performed By: #### L AB18, [id number] #### [employer]: ION MOURA ([id number]) [facility] ([facility]) [address] [place] [address] ECG 12-LEADon 02-18-2023 ECG 12-LEAD IMPRESSION: Sinus rhythm Inferior infarct, old Electronically Signed On 02-18-2023 19:45:03 EST by Rosas Vogel [facility] ED Nursing Noteon 02-18-2023 ED Nursing Note Back from [facility] 02/18/232053 [facility] ED Nursing Note Going to [facility] 02/18/232045 [facility] ED Nursing Note Dr Gallardo in 47 w/ pt [facility] 02/18/232043 [facility] ED Nursing Note Pt now in , assist ed into bed by Justo BIRCH [facility] 02/18/232013 [facility] ED Nursing Note Pt taken to [facility] 02/18/232005 [facility] ED Nursing Note Registration talking to pt in room 47 Chary Miller 02/18/231958 [facility] ED Nursing Note Changed into hospita l gowns and socks. Wanded by protective services. 1 bag of belongings Chary Miller 02/18/231950 [facility] ED Nursing Note Dr. Olmstead talking w ith pt in room 47 Chary Miller 02/18/23 1950 [facility] ED Nursing Note Pt to 47 to complete triage process Chary Miller 02/18/231941 [facility] ED Provider Noteon 3 ED Provider Note [...] he asked her what she wanted for Callao and patient stated, I wont be here for Callao. Patient denying SI/HI to me at this [...] states she was investigated for UTI at [facility] recently for these symptoms and it was [...] 4.2 BILI (more content not included)... Normal [facility] ED Provider Note Emergency Department Encounter [facility] EMERGENCY DEPT Patient: Karri Piedra : 1940 Date of Evaluation: 02/18/2023 ED Supervising Physician: Karthik Olmstead DO I independently examined and evaluated Karri Piedra. This will serve as my Supervisory note as the epic anesthesia analyst of record and shared attestation. I did [...] her blood pressure. Discussed the case with resident services director who recommended medicine evaluation for admission. Medicine [...] Solutions Karthik Olmstead, DO 02/18/23 2320 Normal [facility] [employer] [facility] ETHANOLon 02-18-2023 ETHANOL IN SER/PLAS <0.010 Normal 0.000-0.010 [facility] Comment on above: Result Comment: JODI Slater COMMENTS: NOTE: This result is for medical treatment only. Analysis performed using non-forensic procedures. Performed By: #### L AB18, [id number] #### [employer]: ION MOURA ([id number]) [address] SARS-COV-2 ANTIGENon 023 SARS-COV-2 ANTIGEN SARS-COV-2 ANTIGEN - BINAX Reference Negative Negative A negative result does not rule out the possibility of SARS-CoV-2 infection. NAAT-based methods should be considered for symptomatic patients presenting greater than seven days after onset of symptoms. Method: Lateral flow immunoassay. Fact sheets for healthcare providers and patients can be found at the following sites: https://www.[employer].gov/media/ 156/download https://www.[employer].gov/media/1568/download Normal [facility] Comment on above: Performed By: #### L [id number] #### [employer]: ION MOURA ([id number]) [address] Absolute lymphocyte counton 11-06-2021 Lymphocytes Auto (Unsp spec) [#/Vol] 2.25 10*3/uL 0.83-4.51 [facility] Work Phone: Basophil percentageon 2021 Basophils/100 WBC (Bld) 0.7 % 0-1 [facility] Work Phone: [phone] Bilirubin [Mass/Vol] 0.50 mg/dL 0.20-1.00 [facility] Work Phone: [phone] Comment on above: For patients on eltr ombopag therapy, use of Dimension [place] TBIL is not recommended. Chloride [Moles/Vol] 103 mmol/L 98-107 [facility] Work Phone: Cholesterol [Mass/Vol] 112 mg/dL <200 [facility] Work Phone: Comment on above: <200 mg/dL Desirable 200-240 mg/dL Borderline >240 mg/dL High Risk Eosinophils/100 WBC (Bld) 4.0 % 0-5 [facility] Work Phone: Glucose [Mass/Vol] 126 mg/dL 74-106 [facility] Work Phone: [phone] Comment on above: Fasting Glucose resu lt greater than or equal to 126 mg/dL suggests DIABETES MELLITUS per A.D.A. criteria. Neutrophils (Bld) [#/Vol] 5.1 10*3/uL 2.0-7.7 [facility] Work Phone: [phone] Neutrophils/100 WBC (Bld) 60.6 % 47-70 [facility] Work Phone: [phone] Potassium [Moles/Vol] 3.9 mmol/L 3.5-5.1 [facility] Work Phone: [phone] Protein [Mass/Vol] 7.0 g/dL 6.4-8.2 [facility] Work Phone: [phone] Sodium [Moles/Vol] 138 mmol/L 136-145 [facility] Work Phone: [phone] Triglyceride [Mass/Vol] 164 mg/dL <199 [facility] Work Phone: [phone] Comment on above: The drugs N-Acetylcy steine and Metamizole may falsely depress this assay.Serum Triglycerides Reference Interval Normal <150 mg/dL Borderline high 150 - 199 mg/dL High 200 - 499 mg/dL Very High > or = 500 mg/dL WBC (Bld) [#/Vol] 8.4 10*3/uL 4.4-11.0 [facility] Work Phone: [phone] Blood erythrocytes count (nu mber/volume)on 11-06-2021 RBC (Bld) [#/Vol] 4.27 10*6/uL 4.2-5.4 [facility] Work Phone: [phone] Blood hemoglobin measurement (mass/volume)on 11-06-2021 Hemoglobin (Bld) [Mass/Vol] 12.2 g/dL 12.0-15.0 [facility] Work Phone: Blood lymphocytes/100 leukoc yteson 11-06-2021 Lymphocytes/100 WBC (Bld) 26.7 % 19-41 [facility] Work Phone: Blood monocytes/100 leukocyt eson 11-06-2021 Monocytes/100 WBC (Bld) 7.8 % 0-10 [facility] Work Phone: [phone] Blood platelet mean volumeon 11-06-2021 Platelet mean volume (Bld) [Entitic vol] 13.0 fL 6.2-12.0 [facility] Work Phone: [phone] Determination of erythrocyte mean corpuscular volume (MCV)on 11-06-2021 MCV (RBC) [Entitic vol] 85.7 fL 81-99 [facility] Work Phone: [phone] Hematocrit Auto (Bld) [Volum e fraction]on 11-06-2021 Hematocrit (Bld) [Volume fraction] 36.6 % 37-47 [facility] Work Phone: [phone] Laboratory - Chemistry and C hemistry - challengeon 11-06-2021 ALP [Catalytic activity/Vol] 64 U/L 45-117 [facility] Work Phone: [phone] ALT [Catalytic activity/Vol] 29 U/L 13-56 [facility] Work Phone: [phone] CO2 [Moles/Vol] 28.0 mmol/L 21.0-32.0 [facility] Work Phone: [phone] Globulin (S) [Mass/Vol] 2.9 g/dL 2.2-4.2 [facility] Work Phone: [phone] Urea nitrogen/Creatinin e [Mass ratio] 13.2 mg/mg 10-20 [facility] Work Phone: [phone] Laboratory - Hematology and Cell countson 11-06-2021 Erythrocyte distribution width (RBC) [Entitic vol] 43.3 fL 35.1-43.9 [facility] Work Phone: [phone] Erythrocyte distribution width (RBC) [Ratio] 14.0 % 11.6-14.6 [facility] Work Phone: [phone] Immature granulocytes/100 WBC (Bld) 0.200 % 0.0-0.9 [facility] Work Phone: Comment on above: IG% - Immature Granu locytes (promyelocytes, myelocytes and metamyelocytes) > 1% indicates that a LEFT SHIFT is Present. MCH (RBC) [Entitic mass] 28.6 pg 27.0-32.0 [facility] Work Phone: [phone] Nucleated RBC/100 WBC (Bld) [Ratio] 0 % 0-5 [facility] Work Phone: [phone] MCHC Auto (RBC) [Mass/Vol]on 11-06-2021 MCHC (RBC) [Mass/Vol] 33.3 g/dL 32-36 [facility] Work Phone: [phone] Panel Informationon 11-06 Estimated GFR (MDRD) Amer 94 mL/min >60 [facility] Work Phone: [phone] Comment on above: GFR Calc Estimated GFR (MDRD) Non-Af Amer 77 mL/min >60 [facility] Work Phone: [phone] Comment on above: Non- GFR Calc Vitamin D 25-Hydroxy 47.4 ng/mL [facility] Work Phone: [phone] Comment on above: Vitamin D 25(OH) Sta tus Range Deficiency <20 ng/mL (50nmol/L) Insufficiency 20 - 30 ng/mL (50 - 75 nmol/L) Sufficiency 30 - 100 ng/mL (75 - 250 nmol/L) Toxicity >100 ng/mL (>250 nmol/L) Platelets bldon 11-06-2021 Platelets (Bld) [#/Vol] 221 10*3/uL 150-450 [facility] Work Phone: [phone] Serum or plasma albumin tricia urement (mass/volume)on 11-06-2021 Albumin [Mass/Vol] 4.1 g/dL 3.2-5.0 [facility] Work Phone: [phone] Serum or plasma albumin/glob ulin mass ratioon 11-06-2021 Albumin/Globulin [Mass ratio] 1.4 {ratio} 0.9-2.4 [facility] Work Phone: [phone] Serum or plasma calcium tricia urement (mass/volume)on 11-06-2021 Calcium [Mass/Vol] 9.1 mg/dL 8.5-10.1 [facility] Work Phone: [phone] Serum or plasma cholesterol in HDL measurement (mass/volume)on 11-06-2021 Cholesterol in HDL [Mass/Vol] 67 mg/dL >40 [facility] Work Phone: Comment on above: The drugs N-Acetylcy steine and Metamizole may falsely depress this assay. Reference Range HDL <40 mg/dL Low HDL Cholesterol HDL >or= 60 mg/dL High HDL Cholesterol Serum or plasma cholesterol in VLDL measurement (mass/volume)on 11-06-2021 Cholesterol in VLDL [Mass/Vol] 33 mg/dL 5-40 [facility] Work Phone: [phone] Serum or plasma creatinine m easurement (mass/volume)on 11-06-2021 Creatinine [Mass/Vol] 0.76 mg/dL 0.55-1.02 [facility] Work Phone: Comment on above: The validity of the calculated GFR & GFRAA in patients over 70 years has not been determined. Clinical correlation is essential. Serum or plasma low density lipoprotein (LDL) cholesterol measurement (mass/volume)on 11-06-2021 Cholesterol in LDL [Mass/Vol] 12 mg/dL 0-130 [facility] Work Phone: [phone] Serum or plasma urea nitroge n measurement (mass/volume)on 11-06-2021 Urea nitrogen [Mass/Vol] 10 mg/dL 7-18 [facility] Work Phone: [phone] Thin prep Papanicolaou smear with manual screeningon 11-06-2021 Thin prep Papanicolaou smear with manual screening 17 U/L 15-37 [facility] Work Phone: [phone] Thin prep Papanicolaou smear with manual screening 7 5-15 [facility] Work Phone: [phone] Whole blood hemoglobin A1c/t otal hemoglobin ratio (mass fraction)on 11-06-2021 HbA1c (Bld) [Mass fraction] 6.4 % 3.8-5.6 [facility] Work Phone: [phone] Comment on above: Normal < 5.7 % Predi abetic 5.7 - 6.4 % Diabetic >or= 6.5 % Please note range changes. Absolute lymphocyte counton 07-05-2021 Lymphocytes Auto (Unsp spec) [#/Vol] 2.23 10*3/uL 0.83-4.51 [facility] Work Phone: [phone] Basophil percentageon 2021 Basophils/100 WBC (Bld) 1.2 % 0-1 [facility] Work Phone: [phone] Bilirubin [Mass/Vol] 0.40 mg/dL 0.20-1.00 [facility] Work Phone: [phone] Comment on above: For patients on eltr ombopag therapy, use of Dimension [place] TBIL is not recommended. Chloride [Moles/Vol] 103 mmol/L 98-107 [facility] Work Phone: [phone] Cholesterol [Mass/Vol] 137 mg/dL <200 [facility] Work Phone: [phone] Comment on above: <200 mg/dL Desirable 200-240 mg/dL Borderline >240 mg/dL High Risk Eosinophils/100 WBC (Bld) 2.7 % 0-5 [facility] Work Phone: [phone] Glucose [Mass/Vol] 184 mg/dL 74-106 [facility] Work Phone: [phone] Comment on above: Fasting Glucose resu lt greater than or equal to 126 mg/dL suggests DIABETES MELLITUS per A.D.A. criteria. Neutrophils (Bld) [#/Vol] 4.4 10*3/uL 2.0-7.7 [facility] Work Phone: Neutrophils/100 WBC (Bld) 59.0 % 47-70 [facility] Work Phone: [phone] Potassium [Moles/Vol] 4.0 mmol/L 3.5-5.1 [facility] Work Phone: [phone] Protein [Mass/Vol] 6.8 g/dL 6.4-8.2 [facility] Work Phone: [phone] Sodium [Moles/Vol] 137 mmol/L 136-145 [facility] Work Phone: [phone] Triglyceride [Mass/Vol] 169 mg/dL [facility] Work Phone: [phone] Comment on above: The drugs N-Acetylcy steine and Metamizole may falsely depress this assay.Serum Triglycerides Reference Interval Normal <150 mg/dL Borderline high 150 - 199 mg/dL High 200 - 499 mg/dL Very High > or = 500 mg/dL WBC (Bld) [#/Vol] 7.5 10*3/uL 4.4-11.0 [facility] Work Phone: [phone] Blood erythrocytes count (nu mber/volume)on 07-05-2021 RBC (Bld) [#/Vol] 4.41 10*6/uL 4.2-5.4 [facility] Work Phone: [phone] Blood hemoglobin measurement (mass/volume)on 07-05-2021 Hemoglobin (Bld) [Mass/Vol] 12.4 g/dL 12.0-15.0 [facility] Work Phone: [phone] Blood lymphocytes/100 leukoc yteson 07-05-2021 Lymphocytes/100 WBC (Bld) 29.7 % 19-41 [facility] Work Phone: [phone] Blood monocytes/100 leukocyt eson 07-05-2021 Monocytes/100 WBC (Bld) 7.1 % 0-10 [facility] Work Phone: [phone] Blood platelet mean volumeon 07-05-2021 Platelet mean volume (Bld) [Entitic vol] 12.4 fL 6.2-12.0 [facility] Work Phone: [phone] Determination of erythrocyte mean corpuscular volume (MCV)on 07-05-2021 MCV (RBC) [Entitic vol] 85.5 fL 81-99 [facility] Work Phone: [phone] Hematocrit Auto (Bld) [Volum e fraction]on 07-05-2021 Hematocrit (Bld) [Volume fraction] 37.7 % 37-47 [facility] Work Phone: [phone] Laboratory - Chemistry and C hemistry - challengeon 07-05-2021 ALP [Catalytic activity/Vol] 68 U/L 45-117 [facility] Work Phone: [phone] ALT [Catalytic activity/Vol] 32 U/L 13-56 [facility] Work Phone: [phone] CO2 [Moles/Vol] 29.0 mmol/L 21.0-32.0 [facility] Work Phone: [phone] Globulin (S) [Mass/Vol] 3.1 g/dL 2.2-4.2 [facility] Work Phone: [phone] Urea nitrogen/Creatinin e [Mass ratio] 16.9 mg/mg 10-20 [facility] Work Phone: [phone] Laboratory - Hematology and Cell countson 07-05-2021 Erythrocyte distribution width (RBC) [Entitic vol] 43.1 fL 35.1-43.9 [facility] Work Phone: [phone] Erythrocyte distribution width (RBC) [Ratio] 13.7 % 11.6-14.6 [facility] Work Phone: [phone] Immature granulocytes/100 WBC (Bld) 0.300 % 0.0-0.9 [facility] Work Phone: [phone] Comment on above: IG% - Immature Granu locytes (promyelocytes, myelocytes and metamyelocytes) > 1% indicates that a LEFT SHIFT is Present. MCH (RBC) [Entitic mass] 28.1 pg 27.0-32.0 [facility] Work Phone: [phone] Nucleated RBC/100 WBC (Bld) [Ratio] 0 % 0-5 [facility] Work Phone: [phone] MCHC Auto (RBC) [Mass/Vol]on 07-05-2021 MCHC (RBC) [Mass/Vol] 32.9 g/dL 32-36 [facility] Work Phone: [phone] Panel Informationon 07-05 Estimated GFR (MDRD) Amer 102 mL/min >60 [facility] Work Phone: [phone] Comment on above: GFR Calc Estimated GFR (MDRD) Non-Af Amer 84 mL/min >60 [facility] Work Phone: Comment on above: Non- GFR Calc Thyroid Stimulating Hormone (TSH) 2.79 uIU/mL 0.358-3.74 [facility] Work Phone: Urine Microalbumin/Creat inine Ratio 17.9 mg/g CRE <30 [facility] Work Phone: Vitamin D 25-Hydroxy 33.0 ng/mL [facility] Work Phone: Comment on above: Vitamin D 25(OH) Sta tus Range Deficiency <20 ng/mL (50nmol/L) Insufficiency 20 - 30 ng/mL (50 - 75 nmol/L) Sufficiency 30 - 100 ng/mL (75 - 250 nmol/L) Toxicity >100 ng/mL (>250 nmol/L) Platelets bldon 07-05-2021 Platelets (Bld) [#/Vol] 251 10*3/uL 150-450 [facility] Work Phone: Serum or plasma albumin tricia urement (mass/volume)on 07-05-2021 Albumin [Mass/Vol] 3.7 g/dL 3.2-5.0 [facility] Work Phone: [phone] Serum or plasma albumin/glob ulin mass ratioon 07-05-2021 Albumin/Globulin [Mass ratio] 1.2 {ratio} 0.9-2.4 [facility] Work Phone: [phone] Serum or plasma calcium tricia urement (mass/volume)on 07-05-2021 Calcium [Mass/Vol] 9.2 mg/dL 8.5-10.1 [facility] Work Phone: [phone] Serum or plasma cholesterol in HDL measurement (mass/volume)on 07-05-2021 Cholesterol in HDL [Mass/Vol] 61 mg/dL [facility] Work Phone: Comment on above: The drugs N-Acetylcy steine and Metamizole may falsely depress this assay. Reference Range HDL <40 mg/dL Low HDL Cholesterol HDL >or= 60 mg/dL High HDL Cholesterol Serum or plasma cholesterol in VLDL measurement (mass/volume)on 07-05-2021 Cholesterol in VLDL [Mass/Vol] 34 mg/dL 5-40 [facility] Work Phone: [phone] Serum or plasma creatinine m easurement (mass/volume)on 07-05-2021 Creatinine [Mass/Vol] 0.71 mg/dL 0.55-1.02 [facility] Work Phone: Comment on above: The validity of the calculated GFR & GFRAA in patients over 70 years has not been determined. Clinical correlation is essential. Serum or plasma low density lipoprotein (LDL) cholesterol measurement (mass/volume)on 07-05-2021 Cholesterol in LDL [Mass/Vol] 42 mg/dL 0-130 [facility] Work Phone: Serum or plasma urea nitroge n measurement (mass/volume)on 07-05-2021 Urea nitrogen [Mass/Vol] 12 mg/dL 7-18 [facility] Work Phone: [phone] Thin prep Papanicolaou smear with manual screeningon 07-05-2021 Thin prep Papanicolaou smear with manual screening 21 U/L 15-37 [facility] Work Phone: Thin prep Papanicolaou smear with manual screening 5 5-15 [facility] Work Phone: [phone] Thin prep Papanicolaou smear with manual screening 18.8 mg/L NO RANGE EST. [facility] Work Phone: Urine creatinine measurement (mass/volume)on 07-05-2021 Creatinine (U) [Mass/Vol] 105.00 mg/dL NO RANGE EST. [facility] Work Phone: [phone] Whole blood hemoglobin A1c/t otal hemoglobin ratio (mass fraction)on 07-05-2021 HbA1c (Bld) [Mass fraction] 6.5 % 3.8-5.6 [facility] Work Phone: Comment on above: Normal < 5.7 % Predi abetic 5.7 - 6.4 % Diabetic >or= 6.5 % Please note range changes. Absolute lymphocyte counton 03-21-2021 Lymphocytes Auto (Unsp spec) [#/Vol] 1.84 10*3/uL 0.83-4.51 [facility] Work Phone: Basophil percentageon 2021 Basophil percentage 0-5 SEEN /hpf [facility] Work Phone: Basophils/100 WBC (Bld) 0.9 % 0-1 [facility] Work Phone: [phone] Bilirubin [Mass/Vol] 0.60 mg/dL 0.20-1.00 [facility] Work Phone: Comment on above: For patients on eltr ombopag therapy, use of Dimension [place] TBIL is not recommended. Chloride [Moles/Vol] 101 mmol/L 98-107 [facility] Work Phone: Cholesterol [Mass/Vol] 126 mg/dL <200 [facility] Work Phone: Comment on above: <200 mg/dL Desirable 200-240 mg/dL Borderline >240 mg/dL High Risk Eosinophils/100 WBC (Bld) 3.0 % 0-5 [facility] Work Phone: Glucose [Mass/Vol] 253 mg/dL 74-106 [facility] Work Phone: Comment on above: Glucose result great er than or equal to 200 mg/dLsuggests DIABETES MELLITUS per A.D.A. criteria. Neutrophils (Bld) [#/Vol] 4.5 10*3/uL 2.0-7.7 [facility] Work Phone: Neutrophils/100 WBC (Bld) 63.1 % 47-70 [facility] Work Phone: [phone] Potassium [Moles/Vol] 3.9 mmol/L 3.5-5.1 [facility] Work Phone: Protein [Mass/Vol] 7.1 g/dL 6.4-8.2 [facility] Work Phone: [phone] Sodium [Moles/Vol] 136 mmol/L 136-145 [facility] Work Phone: Triglyceride [Mass/Vol] 127 mg/dL [facility] Work Phone: [phone] Comment on above: The drugs N-Acetylcy steine and Metamizole may falsely depress this assay.Serum Triglycerides Reference Interval Normal <150 mg/dL Borderline high 150 - 199 mg/dL High 200 - 499 mg/dL Very High > or = 500 mg/dL WBC (Bld) [#/Vol] 7.1 10*3/uL 4.4-11.0 [facility] Work Phone: [phone] Bilirubin Test strip Ql (U)o n 03-21-2021 Bilirubin Ql (U) Negative Negative [facility] Work Phone: [phone] Blood erythrocytes count (nu mber/volume)on 03-21-2021 RBC (Bld) [#/Vol] 4.59 10*6/uL 4.2-5.4 [facility] Work Phone: [phone] Blood hemoglobin measurement (mass/volume)on 03-21-2021 Hemoglobin (Bld) [Mass/Vol] 12.9 g/dL 12.0-15.0 [facility] Work Phone: [phone] Blood lymphocytes/100 leukoc yteson 03-21-2021 Lymphocytes/100 WBC (Bld) 26.1 % 19-41 [facility] Work Phone: [phone] Blood monocytes/100 leukocyt eson 03-21-2021 Monocytes/100 WBC (Bld) 6.8 % 0-10 [facility] Work Phone: [phone] Blood platelet mean volumeon 03-21-2021 Platelet mean volume (Bld) [Entitic vol] 12.9 fL 6.2-12.0 [facility] Work Phone: [phone] Determination of erythrocyte mean corpuscular volume (MCV)on 03-21-2021 MCV (RBC) [Entitic vol] 87.1 fL 81-99 [facility] Work Phone: Erythrocyte sedimentation ra derrell 03-21-2021 ESR (Bld) [Velocity] 4 mm/h 0-30 [facility] Work Phone: Hematocrit Auto (Bld) [Volum e fraction]on 03-21-2021 Hematocrit (Bld) [Volume fraction] 40.0 % 37-47 [facility] Work Phone: [phone] Ketones Test strip Ql (U)on 03-21-2021 Ketones Ql (U) Negative Negative [facility] Work Phone: [phone] Laboratory - Chemistry and C hemistry - challengeon 03-21-2021 ALP [Catalytic activity/Vol] 80 U/L 45-117 [facility] Work Phone: [phone] ALT [Catalytic activity/Vol] 31 U/L 13-56 [facility] Work Phone: [phone] CO2 [Moles/Vol] 27.0 mmol/L 21.0-32.0 [facility] Work Phone: [phone] Globulin (S) [Mass/Vol] 3.0 g/dL 2.2-4.2 [facility] Work Phone: [phone] Urea nitrogen/Creatinin e [Mass ratio] 14.3 mg/mg 10-20 [facility] Work Phone: [phone] Laboratory - Hematology and Cell countson 03-21-2021 Erythrocyte distribution width (RBC) [Entitic vol] 43.1 fL 35.1-43.9 [facility] Work Phone: [phone] Erythrocyte distribution width (RBC) [Ratio] 13.6 % 11.6-14.6 [facility] Work Phone: [phone] Immature granulocytes/100 WBC (Bld) 0.100 % 0.0-0.9 [facility] Work Phone: [phone] Comment on above: IG% - Immature Granu locytes (promyelocytes, myelocytes and metamyelocytes) > 1% indicates that a LEFT SHIFT is Present. MCH (RBC) [Entitic mass] 28.1 pg 27.0-32.0 [facility] Work Phone: [phone] Nucleated RBC/100 WBC (Bld) [Ratio] 0 % 0-5 [facility] Work Phone: [phone] MCHC Auto (RBC) [Mass/Vol]on 03-21-2021 MCHC (RBC) [Mass/Vol] 32.3 g/dL 32-36 [facility] Work Phone: [phone] Mucus LM Ql (Urine sed)on Mucus Ql (Urine sed) 0 SEEN /hpf [facility] Work Phone: [phone] Nitrite Test strip Ql (U)on 03-21-2021 Nitrite Ql (U) Negative Negative [facility] Work Phone: No Panel Informationon 03-21 Estimated GFR (MDRD) Amer 84 mL/min >60 [facility] Work Phone: Comment on above: GFR Calc Estimated GFR (MDRD) Non-Af Amer 69 mL/min >60 [facility] Work Phone: Comment on above: Non- GFR Calc Thyroid Stimulating Hormone (TSH) 2.99 uIU/mL 0.358-3.74 [facility] Work Phone: [phone] Urine Microalbumin/Creat inine Ratio 19.4 mg/g CRE <30 [facility] Work Phone: [phone] Vitamin D 25-Hydroxy 26.3 ng/mL [facility] Work Phone: [phone] Comment on above: Vitamin D 25(OH) Sta tus Range Deficiency <20 ng/mL (50nmol/L) Insufficiency 20 - 30 ng/mL (50 - 75 nmol/L) Sufficiency 30 - 100 ng/mL (75 - 250 nmol/L) Toxicity >100 ng/mL (>250 nmol/L) Platelets bldon 03-21-2021 Platelets (Bld) [#/Vol] 221 10*3/uL 150-450 [facility] Work Phone: [phone] Protein Test strip Ql (U)on 03-21-2021 Protein Ql (U) Negative Negative [facility] Work Phone: [phone] Serum or plasma albumin tricia urement (mass/volume)on 03-21-2021 Albumin [Mass/Vol] 4.1 g/dL 3.2-5.0 [facility] Work Phone: Serum or plasma albumin/glob ulin mass ratioon 03-21-2021 Albumin/Globulin [Mass ratio] 1.4 {ratio} 0.9-2.4 [facility] Work Phone: [phone] Serum or plasma calcium tricia urement (mass/volume)on 03-21-2021 Calcium [Mass/Vol] 9.2 mg/dL 8.5-10.1 [facility] Work Phone: [phone] Serum or plasma cholesterol in HDL measurement (mass/volume)on 03-21-2021 Cholesterol in HDL [Mass/Vol] 60 mg/dL [facility] Work Phone: Comment on above: The drugs N-Acetylcy steine and Metamizole may falsely depress this assay. Reference Range HDL <40 mg/dL Low HDL Cholesterol HDL >or= 60 mg/dL High HDL Cholesterol Serum or plasma cholesterol in VLDL measurement (mass/volume)on 03-21-2021 Cholesterol in VLDL [Mass/Vol] 25 mg/dL 5-40 [facility] Work Phone: [phone] Serum or plasma creatinine m easurement (mass/volume)on 03-21-2021 Creatinine [Mass/Vol] 0.84 mg/dL 0.55-1.02 [facility] Work Phone: Comment on above: The validity of the calculated GFR & GFRAA in patients over 70 years has not been determined. Clinical correlation is essential. Serum or plasma low density lipoprotein (LDL) cholesterol measurement (mass/volume)on 03-21-2021 Cholesterol in LDL [Mass/Vol] 41 mg/dL 0-130 [facility] Work Phone: [phone] Serum or plasma urea nitroge n measurement (mass/volume)on 03-21-2021 Urea nitrogen [Mass/Vol] 12 mg/dL 7-18 [facility] Work Phone: [phone] Squamous epithelial cells de tection in urine sediment by light microscopyon 03-21-2021 Epithelial cells.squamous LM Ql (Urine sed) 0 SEEN /hpf [facility] Work Phone: [phone] Thin prep Papanicolaou smear with manual screeningon 03-21-2021 Thin prep Papanicolaou smear with manual screening 17 U/L 15-37 [facility] Work Phone: Thin prep Papanicolaou smear with manual screening 8 5-15 [facility] Work Phone: [phone] Thin prep Papanicolaou smear with manual screening 12.2 mg/L NO RANGE EST. [facility] Work Phone: Urine blood detectionon 03-10 RBC Ql (U) Negative Negative [facility] Work Phone: RBC Ql (U) 0 SEEN /hpf [facility] Work Phone: Urine clarityon 03-21-2021 Clarity (U) Clear Clear [facility] Work Phone: Urine color determinationon 03-21-2021 Color (U) Yellow Yellow [facility] Work Phone: Urine creatinine measurement (mass/volume)on 03-21-2021 Creatinine (U) [Mass/Vol] 62.80 mg/dL NO RANGE EST. [facility] Work Phone: Urine glucose detectionon Glucose Ql (U) 1000 mg/dl Normal [facility] Work Phone: Urine leukocyte esterase det ection by dipstickon 03-21-2021 Leukocyte esterase Test strip Ql (U) 100 /ul Negative [facility] Work Phone: Urine pHon 03-21-2021 pH (U) 6.0 [pH] [facility] Work Phone: Urine sediment bacteria coun t by microscopy (number/high power field)on 03-21-2021 Bacteria LM.HPF (Urine sed) [#/Area] 0 /[HPF] None Seen [facility] Work Phone: Urine specific gravity measu rementon 03-21-2021 Specific gravity (U) [Rel density] 1.015 [facility] Work Phone: Urobilinogen Auto test strip Ql (U)on 03-21-2021 Urobilinogen Ql (U) Normal mg/dl Normal [facility] Work Phone: Whole blood hemoglobin A1c/t otal hemoglobin ratio (mass fraction)on 03-21-2021 HbA1c (Bld) [Mass fraction] 6.4 % 3.8-5.6 [facility] Work Phone: Comment on above: Normal < 5.7 % Predi abetic 5.7 - 6.4 % Diabetic >or= 6.5 % Please note range changes. .Auto Diffon 10-28-2018 Ammonia (P) [Mass/Vol] 0.90 10 3/mcL Normal 0.15-1.00 [facility] ([place]) Comment on above: Performed By: #### C THEO DAVIS, ANEU #### [place] [address] #### BMP, GFR #### [address] [address] Basophils (Bld) [#/Vol] 0.00 10 3/mcL Normal 0.00-0.19 [facility] ([place]) Comment on above: Performed By: #### THEO CARTY, ANEU #### [place] [address] #### BMP, GFR #### [address] [address] Basophils/100 WBC (Bld) 0.4 % Normal 0.0-2.5 [facility] ([place]) Comment on above: Performed By: #### THEO CARTY, ANEU #### [place] [address] #### BMP, GFR #### [address] [address] Eosinophils (Bld) [#/Vol] 0.20 10 3/mcL Normal 0.00-0.40 [facility] ([place]) Comment on above: Performed By: #### C BCTHEO, ANEU #### [place] [address] #### BMP, GFR #### [address] [address] Eosinophils/100 WBC (Bld) 2.0 % Normal 0.0-7.0 [facility] ([place]) Comment on above: Performed By: #### C BC, ADIFF, ANEU #### [address] [address] #### BMP, GFR #### [address] [address] Lymphocytes (Bld) [#/Vol] 1.50 10 3/mcL Normal 0.77-3.85 [facility] ([place]) Comment on above: Performed By: #### C BC, ADIFF, ANEU #### [address] [address] #### BMP, GFR #### [address] [address] Lymphocytes/100 WBC (Bld) 14.7 % Normal 10.0-50.0 [facility] ([place]) Comment on above: Performed By: #### C BC ADIFF, ANEU #### [address] [address] #### BMP, GFR #### [address] [address] Monocytes/100 WBC (Bld) 8.8 % Normal 1.7-13.0 [facility] ([place]) Comment on above: Performed By: #### C BC, ADIFF, ANEU #### [address] [address] #### BMP, GFR #### [address] [address] Neutrophils/100 WBC (Bld) 74.1 % Normal 37.0-80.0 [facility] ([place]) Comment on above: Performed By: #### C BC, ADIFF, ANEU #### [address] [address] #### BMP, GFR #### [address] [address] .GFRon 10-28-2018 GFR Non- 66 ml/min/1.73sqm Normal [facility] ([place]) Comment on above: Result Comment: GFR Population [...] By: #### C THEO DAVIS, ANEU ####[address] [place] [id number]#### BMP, GFR ####[place] [address] GFR 80 ml/min/1.73sqm Normal [facility] ([place]) Comment on above: Result Comment: GFR Population [...] meters Performed By: #### C BCTHEO, ANEU ####[id number] [place] [id number]#### BMP, GFR ####[place] [id number] .NEUABSon 10-28-2018 Neutrophils (Bld) [#/Vol] 7.40 10 3/mcL High 2.85-6.16 [facility] ([place]) Comment on above: Performed By: #### C BC, ADIFF, ANEU #### [address] [place], [place] [address] #### BMP, GFR #### [place] [address] [place] [address] BMPon 10-28-2018 Calcium [Mass/Vol] 7.9 mg/dL Low 8.4-10.2 [facility] ([place]) Comment on above: Performed By: #### C BC, ADIFF, ANEU ####[address] [place], [place] [address]#### BMP, GFR ####[facility] [place] [address] Chloride [Moles/Vol] 105 mmol/L Normal 98-107 [facility] ([place]) Comment on above: Performed By: #### C BC, ADIFF, ANEU ####[address] [address]#### BMP, GFR ####[address] [address] CO2 [Moles/Vol] 26 mmol/L Normal 23-31 [facility] ([place]) Comment on above: Performed By: #### C BC, ADIFF, ANEU ####Milo [address] [address]#### BMP, GFR ####[address] [address] Creatinine [Mass/Vol] 0.83 mg/dL Normal 0.55-1.02 [facility] ([place]) Comment on above: Performed By: #### C BC, ADIFF, ANEU ####[address] [place], [place] [address]#### BMP, GFR ####[address] [address] Electrolyte Balance 9.0 mEq/L Normal [facility] ([place]) Comment on above: Performed By: #### C BC, ADIFF, ANEU ####[address] [place] [address]#### BMP, GFR ####[place] [address] [place] [address] Glucose [Mass/Vol] 223 mg/dL High 83-110 [facility] ([place]) Comment on above: Performed By: #### C BCSONIAIFF, ANEU ####[address] [place], [place] [address]#### BMP, GFR ####[facility] [place] [address] Potassium [Moles/Vol] 4.0 mmol/L Normal 3.5-5.1 [facility] ([place]) Comment on above: Performed By: #### C BC ADIFF, ANEU ####[address] [place], [place] [address]#### BMP, GFR ####[place] [address] [place] [address] Sodium [Moles/Vol] 140 mmol/L Normal 136-145 [facility] ([place]) Comment on above: Performed By: #### C THEO DAVIS, ANEU ####[address] [place], [place] [address]#### BMP, GFR ####[address] [address] Urea nitrogen [Mass/Vol] 11 mg/dL Normal 7-18 [facility] ([place]) Comment on above: Performed By: #### C THEO DAVIS, ANEU ####[address] [place], [place] [address]#### BMP, GFR ####[address] [address] Urea nitrogen/Creatinin e [Mass ratio] 13 ratio Normal 7-27 [facility] ([place]) Comment on above: Performed By: #### C THEO DAVIS, ANEU ####[address] [place], [place] [address]#### BMP, GFR ####[facility] [place] [address] CBCon 10-28-2018 Erythrocyte distribution width (RBC) [Ratio] 13.3 % Normal 11.5-14.5 [facility] ([place]) Comment on above: Performed By: #### C BC, ADIFF, ANEU #### [address] [address] #### BMP, GFR #### [address] [address] Hematocrit (Bld) [Volume fraction] 33.1 % Low 37.0-47.0 [facility] ([place]) Comment on above: Performed By: #### C BC, ADIFF, ANEU #### [place] [address] #### BMP, GFR #### [address] [address] Hemoglobin (Bld) [Mass/Vol] 11.2 G/dL Low 12.0-16.0 [facility] ([place]) Comment on above: Performed By: #### C BC, ADIFF, ANEU #### [place] [address] #### BMP, GFR #### [address] [address] MCH (RBC) [Entitic mass] 30.9 pg Normal 27.0-31.2 [facility] ([place]) Comment on above: Performed By: #### C SUSAN, ADIFF, ANEU #### [address] [address] #### BMP, GFR #### [place] [address] MCHC (RBC) [Mass/Vol] 33.9 G/dL Normal 33.0-37.0 [facility] ([place]) Comment on above: Performed By: #### C BC, ADIFF, ANEU #### [place] [address] #### BMP, GFR #### [place] [id number] MCV (RBC) [Entitic vol] 91.0 fL Normal 80.0-94.0 [facility] ([place]) Comment on above: Performed By: #### C BC, ADIFF, ANEU #### [address] [address] #### BMP, GFR #### [address] [address] Platelet mean volume (Bld) [Entitic vol] 10.5 fL High 7.4-10.4 [facility] ([place]) Comment on above: Performed By: #### C BC, ADIFF, ANEU #### [place] [address] #### BMP, GFR #### [address] [address] Platelets (Bld) [#/Vol] 141 10 3/mcL Normal 130-400 [facility] ([place]) Comment on above: Performed By: #### C BC, ADIFF, ANEU #### [place] [address] #### BMP, GFR #### [address] [address] RBC (Bld) [#/Vol] 3.64 10 6/mcL Low 4.20-5.40 [facility] ([place]) Comment on above: Performed By: #### C BC, ADIFF, ANEU #### [place] [address] #### BMP, GFR #### [address] [address] WBC (Bld) [#/Vol] 10.00 10 3/mcL Normal 4.60-10.80 [facility] Comment on above: Performed By: #### C BC, ADIFF, ANEU #### [place] [address] #### BMP, GFR #### [address] [address] XR KNEE 1 OR 2 VIEWS RIGHTon [...] AM Sign Date: 10/28/2018 10:21:40 AM Normal [facility] ([place]) .Auto Diffon 10-16-2018 Ammonia (P) [Mass/Vol] 0.50 10 3/mcL Normal 0.15-1.00 [facility] ([place]) Comment on above: Performed By: #### C BC, ADIFF, ANEU #### [place] [address] #### BMP, GFR #### [address] [address] Basophils (Bld) [#/Vol] 0.10 10 3/mcL Normal 0.00-0.19 [facility] ([place]) Comment on above: Performed By: #### C BC, ADIFF, ANEU #### [place] [address] #### BMP, GFR #### [address] [address] Basophils/100 WBC (Bld) 1.0 % Normal 0.0-2.5 [facility] ([place]) Comment on above: Performed By: #### C BC, ADIFF, ANEU #### [place] [address] #### BMP, GFR #### [address] [address] Eosinophils (Bld) [#/Vol] 0.30 10 3/mcL Normal 0.00-0.40 [facility] ([place]) Comment on above: Performed By: #### C BC, ADIFF, ANEU #### [place] [address] #### BMP, GFR #### [address] [address] Eosinophils/100 WBC (Bld) 4.3 % Normal 0.0-7.0 [facility] ([place]) Comment on above: Performed By: #### C BC, ADIFF, ANEU #### [address] [address] #### BMP, GFR #### [address] [address] Lymphocytes (Bld) [#/Vol] 2.20 10 3/mcL Normal 0.77-3.85 [facility] ([place]) Comment on above: Performed By: #### C BC, ADIFF, ANEU #### [address] [address] #### BMP, GFR #### [address] [address] Lymphocytes/100 WBC (Bld) 29.8 % Normal 10.0-50.0 [facility] ([place]) Comment on above: Performed By: #### C BC, ADIFF, ANEU #### [address] [address] #### BMP, GFR #### [address] [address] Monocytes/100 WBC (Bld) 6.6 % Normal 1.7-13.0 [facility] ([place]) Comment on above: Performed By: #### C BC, ADIFF, ANEU #### [address] [address] #### BMP, GFR #### [address] [address] Neutrophils/100 WBC (Bld) 58.3 % Normal 37.0-80.0 [facility] ([place]) Comment on above: Performed By: #### C BC, ADIFF, ANEU #### [address] [address] #### BMP, GFR #### [address] [address] .GFRon 10-16-2018 GFR 92 ml/min/1.73sqm Normal [facility] ([place]) Comment on above: Result Comment: GFR [...] square meters Performed By: #### C BC, SONIAIFF, ANEU #### [address] [address] #### BMP, GFR #### [address] [address] GFR Non- 76 ml/min/1.73sqm Normal [facility] ([place]) Comment on above: Result Comment: GFR Population [...] By: #### C BC, ADIFF, ANEU #### [address] [address] #### BMP, GFR #### [address] [address] .NEUABSon 10-16-2018 Neutrophils (Bld) [#/Vol] 4.30 10 3/mcL Normal 2.85-6.16 [facility] ([place]) Comment on above: Performed By: #### C BC, SONIAIFF, ANEU #### [address] [address] #### BMP, GFR #### [address] [address] BMPon 10-16-2018 Calcium [Mass/Vol] 8.8 mg/dL Normal 8.4-10.2 [facility] ([place]) Comment on above: Performed By: #### C BC, ADIFF, ANEU #### [address] [address] #### BMP, GFR #### [address] [address] Chloride [Moles/Vol] 102 mmol/L Normal 98-107 [facility] ([place]) Comment on above: Performed By: #### C BC, ADIFF, ANEU #### [address] [address] #### BMP, GFR #### [place] [id number] CO2 [Moles/Vol] 27 mmol/L Normal 23-31 [facility] ([place]) Comment on above: Performed By: #### C BC, ADIFF, ANEU #### [address] [address] #### BMP, GFR #### [address] [address] Creatinine [Mass/Vol] 0.74 mg/dL Normal 0.55-1.02 [facility] ([place]) Comment on above: Performed By: #### C BC, ADIFF, ANEU #### [address] [address] #### BMP, GFR #### [address] [address] Electrolyte Balance 11.0 mEq/L Normal [facility] ([place]) Comment on above: Performed By: #### C BC, ADIFF, ANEU #### [address] [address] #### BMP, GFR #### [address] [address] Glucose [Mass/Vol] 227 mg/dL High 83-110 [facility] ([place]) Comment on above: Performed By: #### C BC, ADIFF, ANEU #### [address] [address] #### BMP, GFR #### [address] [address] Potassium [Moles/Vol] 4.2 mmol/L Normal 3.5-5.1 [facility] ([place]) Comment on above: Performed By: #### C BC, ADIFF, ANEU #### [address] [address] #### BMP, GFR #### [address] [address] Sodium [Moles/Vol] 140 mmol/L Normal 136-145 [facility] ([place]) Comment on above: Performed By: #### C BC, ADIFF, ANEU #### [address] [address] #### BMP, GFR #### [address] [address] Urea nitrogen [Mass/Vol] 12 mg/dL Normal 7-18 [facility] ([place]) Comment on above: Performed By: #### C BC, ADIFF, ANEU #### [address] [address] #### BMP, GFR #### [address] [address] Urea nitrogen/Creatinin e [Mass ratio] 16 ratio Normal 7-27 [facility] ([place]) Comment on above: Performed By: #### C BC, ADIFF, ANEU #### [address] [address] #### BMP, GFR #### [address] [address] CBCon 10-16-2018 Erythrocyte distribution width (RBC) [Ratio] 13.7 % Normal 11.5-14.5 [facility] ([place]) Comment on above: Performed By: #### C BC, ADIFF, ANEU #### [address] [address] #### BMP, GFR #### [address] [address] Hematocrit (Bld) [Volume fraction] 40.0 % Normal 37.0-47.0 [facility] ([place]) Comment on above: Performed By: #### C BC, ADIFF, ANEU #### [place] [address] #### BMP, GFR #### [address] [address] Hemoglobin (Bld) [Mass/Vol] 13.6 G/dL Normal 12.0-16.0 [facility] ([place]) Comment on above: Performed By: #### C SUSAN, ADIFF, ANEU #### [place] [address] #### BMP, GFR #### [place] [address] MCH (RBC) [Entitic mass] 30.2 pg Normal 27.0-31.2 [facility] ([place]) Comment on above: Performed By: #### C SUSAN, ADIFF, ANEU #### [place] [address] #### BMP, GFR #### [address] [address] MCHC (RBC) [Mass/Vol] 34.0 G/dL Normal 33.0-37.0 [facility] ([place]) Comment on above: Performed By: #### C BC, ADIFF, ANEU #### [place] [address] #### BMP, GFR #### [place] [address] MCV (RBC) [Entitic vol] 88.7 fL Normal 80.0-94.0 [facility] ([place]) Comment on above: Performed By: #### C BC, ADIFF, ANEU #### [place] [address] #### BMP, GFR #### [address] [address] Platelet mean volume (Bld) [Entitic vol] 11.0 fL High 7.4-10.4 [facility] ([place]) Comment on above: Performed By: #### C BC, ADIFF, ANEU #### [address] [address] #### BMP, GFR #### [address] [address] Platelets (Bld) [#/Vol] 186 10 3/mcL Normal 130-400 [facility] ([place]) Comment on above: Performed By: #### C BC, ADIFF, ANEU #### [address] [address] #### BMP, GFR #### [address] [address] RBC (Bld) [#/Vol] 4.51 10 6/mcL Normal 4.20-5.40 [facility] ([place]) Comment on above: Performed By: #### C BC, ADIFF, ANEU #### [address] [address] #### BMP, GFR #### [address] [address] WBC (Bld) [#/Vol] 7.40 10 3/mcL Normal 4.60-10.80 [facility] ([place]) Comment on above: Performed By: #### C BC, ADIFF, ANEU #### [address] [address] #### BMP, GFR #### [address] [address] [address] KNEE W/O CONTRAST RIGHTon 10-12-2018 CT [...] PM Sign Date: 10/12/2018 12:59:52 PM Normal [facility] ([place]) CT KNEE W/O CONTRAST RIGHTon 05-22-2018 CT [...] PM Sign Date: 05/22/2018 2:44:37 PM Normal [facility] ([place]) Encounters Encounter Date Encounter Type Care Provider Facility Start: 12-03-2024 End: 12-03-2024 ambulatory Ronak Escalante Facility:[facility] Start: 11-15-2024 End: 11-27-2024 ambulatory RO CLAIRE Facility:[facility] Start: 11-13-2024 ambulatory Ronak Escalante Facilit y:[facility] Start: 11-12-2024 End: 11-15-2024 ambulatory Ronak Escalante Facility:[facility] Start: 11-04-2024 ambulatory Ronak Escalante Facilit y:[facility] Start: 10-28-2024 End: 10-28-2024 ambulatory Ronak Escalante Facility:[facility] Start: 10-25-2024 End: 10-25-2024 ambulatory Ronak Escalante Facility:[facility] Start: 10-06-2024 End: 10-06-2024 ambulatory Ronak Escalante Facility:[facility] Start: 09-30-2024 End: 09-30-2024 ambulatory Ronak Escalante Facility:[facility] Start: 09-03-2024 End: 09-03-2024 ambulatory Ronak Escalante Facility:[facility] Start: 08-18-2024 ambulatory Ronak Escalante Facilit y:[facility] Start: 08-16-2024 End: 08-16-2024 ambulatory Ronak Escalante Facility:[facility] Start: 08-11-2024 End: 08-11-2024 ambulatory Ronak Escalante Facility:[facility] Start: 08-03-2024 Encounter for other preprocedural examination Sheridan Nowak [facility] Start: 07-15-2024 End: 08-07-2024 ambulatory Ronak Escalante Facility:[facility] Start: 07-01-2024 End: 07-01-2024 ambulatory Ronak Escalante Facility:[facility] Start: 06-23-2024 Encounter for other preprocedural examination Sylvain Salamanca [facility] Start: 06-21-2024 End: 06-23-2024 ambulatory Ronak Escalante Facility:[facility] Start: 06-14-2024 End: 06-14-2024 ambulatory Ronak Escalante Facility:[facility] Start: 05-31-2024 End: 05-31-2024 ambulatory Ronak Escalante Facility:[facility] Start: 05-20-2024 End: 05-20-2024 ambulatory Ronak Escalante Facility:[facility] Start: 04-06-2024 ambulatory Ronak Escalante Facilit y:[facility] Start: 04-02-2024 End: 04-02-2024 ambulatory Ronak Escalante Facility:[facility] Start: 03-18-2024 End: 03-18-2024 ambulatory Ronak Escalante Facility:[facility] Start: 01-22-2024 End: 01-22-2024 ambulatory Ronak Escalante Facility:[facility] Start: 12-16-2023 End: 12-16-2023 ambulatory Ronak Escalante Facility:[facility] Start: 12-12-2023 End: 12-12-2023 ambulatory Ronak Escalante Facility:[facility] Start: 02-18-2023 End: 02-26-2023 Evaluation and management of inpatient [facility] Start: 11-06-2021 End: 11-06-2021 ambulatory [facility] Work Phone: Start: 11-06-2021 End: 11-06-2021 Patient encounter procedure [facility] Start: 07-05-2021 End: 07-05-2021 Patient encounter procedure [facility] Start: 03-21-2021 End: 03-21-2021 Patient encounter procedure [facility] Start: 05-18-2018 Patient encounter procedure SHERIDAN NOWAK Facility:B Payers Date Payer Category Payer Self-pay [id number] 2023 Private Health Insurance 2023 Self-pay [id number] 2015 Private Health Insurance [id number] 2004 Medicare [id number] Unknown [id number] 2.16.8 40.1.043019.3.579.2.462 Unknown [id number] 2.16.8 40.1.225067.3.579.2.462 Unknown [id number] 2.16.8 40.1.042257.3.579.2.462 Unknown [id number] 2.16.8 40.1.749926.3.579.2.462 Unknown [id number] 2.16.8 40.1.194366.3.579.2.462 Unknown [id number] 2.16.8 40.1.451072.3.579.2.462 Unknown [id number] 2.16.8 40.1.049276.3.579.2.462 Unknown [id number] 2.16.8 40.1.827052.3.579.2.462 Unknown [id number] 2.16.8 40.1.884192.3.579.2.462 Unknown [id number] 2.16.8 40.1.213339.3.579.2.462 Unknown [id number] 2.16.8 40.1.478872.3.579.2.462 Unknown [id number] 2.16.8 40.1.621004.3.579.2.462 Unknown [id number] 2.16.8 40.1.387485.3.579.2.462 Unknown [id number] 2.16.8 40.1.993112.3.579.2.462 Unknown [id number] 2.16.8 40.1.660569.3.579.2.462 Unknown [id number] 2.16.8 40.1.988336.3.579.2.462 Unknown [id number] 2.16.8 40.1.473950.3.579.2.462 Unknown [id number] 2.16.8 40.1.087840.3.579.2.462 Unknown [id number] 2.16.8 40.1.864558.3.579.2.462 Unknown [id number] 2.16.8 40.1.481692.3.579.2.462 Unknown [id number] 2.16.8 40.1.918346.3.579.2.462 Unknown [id number] 2.16.8 40.1.828596.3.579.2.462 Unknown [id number] 2.16.8 40.1.667608.3.579.2.462 Unknown [id number] 2.16.8 40.1.043426.3.579.2.462 Unknown [id number] 2.16.8 40.1.094205.3.579.2.462 Unknown [id number] 2.16.8 40.1.121279.3.579.2.462 Unknown [id number] 2.16.8 40.1.066796.3.579.2.462 Unknown [id number] 2.16.8 40.1.850383.3.579.2.462 Unknown [id number] 2.16.8 40.1.050559.3.579.2.462 Unknown [id number] 2.16.8 40.1.382382.3.579.2.462 Social History Date Type Detail [facility] Work Phone: Start: 1940 Sex Assigned At Female [facility] Work Phone: Clinical Notes 02-19-2023 to 11-15-2024 Note Date & Type Note Facility 11-15-2024 Note [facility] 11-13-2024 Note [facility] 06-23-2024 Note [facility] 06-14-2024 Note [facility] 02-26-2023 Note Discharge Summary Karri Piedra : [...] undersigned during hospitalization and a discharge from [facility]. As she has reached maximum benefit from [...] 15 MG ta (more content not included)... [facility] 02-26-2023 Note [facility] - Infectious Diseases Advanced Practice Provider Progress Note Subjective: Following for acute uncomplicated sigmoid diverticulitis. Notes reviewed. Pt states N/V/abd pain improved since starting Augmentin. Denies fever or chills overnight. Planning to go to facility in [place]. Vitals: Patient Vitals for the past 24 [...] recommended with established provider Dr Lozano in [place]. ID to follow sign off. Based on diagnoses and management, combination of acute and chronic problems, exacerbations and/or acuity, this visit should be considered to be of low complexity. [place], CRISTAL, PATu [facility] 02-26-2023 Note Hospitalist Progress Note 02/26/2023 [phone]: Budge Chat pa for patient care issues. [phone]: Please Budge Chat [facility] Consulting Hospitalist for any issues. Subjective: Admit [...] She states she will be going to [facility]. She denies any sob, cp, palpitations, [...] this unenhanced examination. (more content not included)... [facility] 02-25-2023 Note Have spoken to sara conrad's spouse throughout today. Referrals have been made including to [facility] per his request. This worker spoke to admissions will have an answer by a.m. [facility] 02-25-2023 Note Spoke to patient's s jaclyn Gallardo he is now interested in a referral to [facility] this worker followed up with a phone call to admissions will have answer if patient can be excepted by later this afternoon or tomorrow morning. [facility] 02-25-2023 Note PSYCHIATRIC EVALUATI ON/PROGRESS NOTE [...] he asked her what she wanted for Callao and patient stated, I wont be here for Callao. Patient denying SI/HI to me at this [...] states she was investigated for UTI at [facility] recently for these symptoms and it was [...] better overall. Referred to several facilities in [place], family declines one that accepted pt, will need to d/w fam to either expand search or pt will return home. I left message for both son and today , also yesterday PTOT [facility] No side effects reported. Short term goal-reduction in symptoms; care home goal -improved functioning, reduction in polypharmacy. TCT [...] effects none Short term goal-reduction in symptoms; care home goal -improved functioning, reduction in polypharmacy. Patient []has [x]has no prior psychiatric hospitalizations. Patient has previously been diagnosed with [x]depression []bipolar, []dementia [x]anxiety []insomnia []behavioral disturbances []schizophrenia []psychosis []mood disorder []MRDD. Condition: improving Prognosis: fair Level of care/functionality: cont to need in level of care Barriers to discharge: cont [...] of health []t (more content not included)... [facility] 02-25-2023 Note Hospitalist Progress Note 02/25/2023 [phone]: Budge Chat pa for patient care issues. [phone]: Please Budge Chat [facility] Consulting Hospitalist for any issues. Subjective: Admit [...] unenhanced examination. Gallb (more content not included)... [facility] 2023 Note PSYCHIATRIC EVALUATI ON/PROGRESS NOTE [...] patient stated, I wont be here for Callao. Patient denying SI/HI to me at this [...] states she was investigated for UTI at [facility] recently for these symptoms and it was [...] effects reported. 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 TCT [...] effects none Short term goal-reduction in symptoms; care home goal -improved functioning, reduction in polypharmacy. Patient [...] a provider outside (more content not included)... [facility] 2023 Note Hospitalist Progress Note [phone]: Budge Chat me for patient care issues. [phone]: Please Budge Chat [facility] Consulting Hospitalist for any issues. Subjective: Admit [...] 1000 mg bi (more content not included)... [facility] 02-23-2023 Note Department of Psychi atry [...] Will continue to follow recommendations per medical office administrator. Will discharge the patient to the appropriate level of care when medically (more content not included)... [facility] 02-23-2023 Note Hospitalist Progress Note 02/23/[phone]: Budge Chat me for patient care issues. [phone]: Please Epic Chat [facility] Consulting Hospitalist for any issues. Subjective: Admit [...] data in the 24 hours ending 02/23/23 0826 Past Medical History: Past Medical History: Diagnosis [...] and continue b (more content not included)... [facility] 02-22-2023 Note Denies si/hi. Admits to sad and lack of purpose. 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 Up with one assist, very. cautious with transfer from chair to bed and cautious. Sleeping at this time. [facility] 02-22-2023 Note Department of Psychi atry [...] Daily, Arjun Cornell MD, 81 mg at 02/22/23840 atorvastatin (Lipitor) tablet 40 mg, 40 mg, Oral, Daily, rAjun Cornell MD, 40 mg at 02/22/232100 deutetrabenazine [...] Yumiko Gasca MD, 200 mg at 02/22/23 08 timolol (Timoptic) 0.5 % ophthalmic solution 1 drop, 1 drop, Both Eyes, Daily, Arjun Cornell MD, 1 drop at 02/22/23 08 traZODone (Desyrel) tablet 50 mg, 50 mg, [...] medication regimen. Will follow recommendations per medical office administrator. Will discharge the patient to the appropriate level of care when medically and (more content not included)... [facility] 02-22-2023 Note Hospitalist Progress Note 02/22/2023 [phone]: Budge Chat pa for patient care issues. [phone]: Please Budge Chat [facility] Consulting Hospitalist for any issues. Subjective: Admit [...] Total time spent (more content not included)... [facility] 02-21-2023 Note PSYCHIATRIC EVALUATI ON/PROGRESS NOTE [...] states she was investigated for UTI at [facility] recently for these symptoms and it was [...] effects reported. 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 Patient [...] discussion of manage (more content not included)... [facility] 02-21-2023 Note Hospitalist Progress Note 02/21/2023 [phone]: Budge Chat pa for patient care issues. [phone]: Please Budge Chat [facility] Consulting Hospitalist for any issues. Subjective: Admit [...] of monitoring : (more content not included)... [facility] 02-20-2023 Note PHYSICAL THERAPY [facility] Initial Evaluation Name/MRN: Karri Piedra ([id number]) Evaluation Date: 02/20/2023 Date of : 1940 Admission Date: 02/18/2023 6:15 PM Age: 82 y.o. Room/Bed: S4-113/S4-113 A Discharge Recommendation: [facility] Facility Other: tbd Assessment IMPRESSION: Pt present [...] to pattern, shuffling, uneven step length, narrow MAHMAED, slow maximino, postural sway, path deviations, instability [...] climbing assessed?: No (more content not included)... [facility] 02-20-2023 Note PSYCHIATRIC EVALUATI ON/PROGRESS NOTE [...] he asked her what she wanted for Callao and patient stated, I wont be here [...] states she was investigated for UTI at [facility] recently for these symptoms and it was [...] regimen. 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 PT [...] effects reported. 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 TCT [...] effects none Short term goal-reduction in symptoms; care home goal -improved functioning, reduction in polypharmacy. Patient [...] an independent int (more content not included)... [facility] 02-20-2023 Note OCCUPATIONAL THERAPY [facility] Initial Evaluation Name/MRN: Karri Piedra ([id number]) Evaluation Date: 02/20/2023 Date of : 1940 Admission Date: 02/18/2023 6:15 PM Age: 82 y.o. Room/Bed: S4-113/S4-113 A Discharge Recommendation: [facility] Equipment Needed: (TBD) Assessment IMPRESSION: Pt [...] and Continued Edu (more content not included)... [facility] 02-19-2023 Note PSYCHIATRIC EVALUATI ON/PROGRESS NOTE [...] he asked her what she wanted for Callao and patient stated, I wont be here for Callao. Patient denying SI/HI to me at this [...] states she was investigated for UTI at [facility] recently for these symptoms and it was [...] effects reported. 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 Patient [...] of morbidity wit (more content not included)... [facility] [employer] [facility] Evaluation note No assessment information [facility] Work Phone: Summary Purpose Family History No [...] section and content) DATE CREATED AUTHOR 05/19/2018 [place] [employer] ([place]) DATE CREATED AUTHOR AUTHOR'S ORGANIZ ATION 10/30/2018 [place] [employer] [place] DATE CREATED AUTHOR AUTHOR'S ORGANIZ ATION 03/23/2023 [facility] [employer] [facility] DATE CREATED AUTHOR AUTHOR'S ORGANIZ ATION 11/28/2024 [facility] DATE CREATED AUTHOR AUTHOR'S ORGANIZ ATION 12/11/2024 [facility] Goals (unrecognized section and content) Goals [...] BE BASED ON THE PRIMARY CLINICAL RECORDS. [facility] provides no warranty or guarantee of the accuracy or completeness of information in this document.
[2025-01-02 11:12] VITALS: BP 133/57; PULSE 75; RESP 16; O2SAT 99
[2025-01-02] MEDS: Midazolam 2 MG/2 ML Syringe IM (11:16)
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
[2025-01-02 12:00] VITALS: BP 132/79; PULSE 77; RESP 146; O2SAT 99
[2025-01-02 12:11] LABS: Hematocrit 33.6 % (37-47); Hemoglobin 11.3 g/dL (12.0-15.0); Immature Granulocytes Count 0.010 X10^3/uL (0.0-0.0); Mean Corp Hgb Conc 33.6 g/dL (32-36); Mean Corpuscular Volume 85.9 fL (81-99); Mean Platelet Vol. 11.7 fl (6.2-12.0); NRBC Flagged by Analyzer 0 % (0-5); Platelet Count 212 K/mm3 (150-450); RBC Distribution Width CV 13.5 % (11.6-14.6); RBC Distribution Width SD 42.1 fl (35.1-43.9); Red Blood Count 3.91 M/mm3 (4.2-5.4); White Blood Count 5.4 K/mm3 (4.4-11.0)
[2025-01-02 12:23] LABS: Mucous, Urine 0 SEEN /hpf (<or=2+); Red Blood Cells-Urine 0 SEEN /hpf (0-5); Squamous Epithelial Cells - UA 0 SEEN /hpf (5-10)
[2025-01-02 12:25] LABS: Color, Urine Yellow (Yellow); Glucose, Dipstick Normal (Normal); Ketone-Dipstick 5 mg/dl (Negative); Leukocyte Esterase-Dipstick Negative /ul (Negative); Nitrite-Dipstick Negative (Negative); Occult Blood-Urine 10 /ul (Negative); Protein-Dipstick 15 mg/dl (Negative); Specific Gravity, Urine 1.010 (1.002-1.030); Urine Bilirubin Dipstick Negative (Negative)
[2025-01-02 12:45] VITALS: BP 134/78; PULSE 64; RESP 18; TEMP 36.6; O2SAT 99
[2025-01-02 12:49] LABS: AST(SGOT) 30 U/L (<=31); Alanine Aminotransfer ALT/SGPT 38 U/L (<=34); Albumin, Serum 3.9 g/dL (3.4-4.8); Alkaline Phosphatase 90 U/L (35-104); Anion Gap 12 (5-15); BUN 18 mg/dL (4-19); BUN/Creat Ratio 27.5 RATIO (10-20); Calcium,Total 9.4 mg/dL (7.6-11.0); Carbon Dioxide 24.9 mmol/L (21.0-32.0); Chloride 100 mmol/L (98-108); Estimated Creatinine Clearance 48.03 ml/min (50-250); Globulin 2.6 g/dL (2.2-4.2); Glucose 137 mg/dL (70-99); Potassium 3.4 mmol/L (3.3-5.1)
== END 2025-01-02 12:50 | disposition home or self-care (01) ==
PROVIDERS: Emergency Provider Emergency Medicine; PCP Family Medicine; Visit Provider Emergency Medicine
DX: G30.9 Alzheimer's disease, unspecified (principal); F02.811 Dementia in other diseases classified elsewhere, unspecified severity, with agitation; E11.65 Type 2 diabetes mellitus with hyperglycemia; I10 Essential (primary) hypertension; E78.00 Pure hypercholesterolemia, unspecified; F32.9 Major depressive disorder, single episode, unspecified; R45.1 Restlessness and agitation; K21.9 Gastro-esophageal reflux disease without esophagitis; Z79.899 Other long term (current) drug therapy; D64.9 Anemia, unspecified
CPT/HCPCS: 96372; 99285; 80053; 81001; 85025; P9612

== ENCOUNTER 2025-01-04 01:11 | Inpatient (IN) | payer MEDICARE, OTHER, SELFPAY ==
[2025-01-04] VITALS (9 sets, daily range): BP systolic 95–138; BP diastolic 45–66; PULSE 85–113; RESP 14–20; TEMP 36.5–37.2; O2SAT 93–99; BMI 24.2; BMI 23.3
--- NOTE | 2025-01-04 01:34 | RAD_ITS ---
PROCEDURE: RAD/Knee 3 Views
--- NOTE | 2025-01-04 01:34 | RAD_ITS ---
PROCEDURE: RAD/Pelvis 1 or 2 Views
--- NOTE | 2025-01-04 02:00 | RAD_ITS ---
PROCEDURE: RAD/Elbow min 3 Views
--- NOTE | 2025-01-04 02:01 | CT_ITS ---
PROCEDURE: CT/Spine Cervical without Contras
--- NOTE | 2025-01-04 02:01 | CT_ITS ---
PROCEDURE: CT/Brain/Head without Contrast
[2025-01-04 02:48] LABS: Color, Urine Yellow (Yellow); Glucose, Dipstick 250 mg/dl (Normal); Hematocrit 31.5 % (37-47); Hemoglobin 10.7 g/dL (12.0-15.0); Immature Granulocytes Count 0.180 X10^3/uL (0.0-0.0); Ketone-Dipstick 15 mg/dl (Negative); Leukocyte Esterase-Dipstick Negative /ul (Negative); Mean Corp Hgb Conc 34.0 g/dL (32-36); Mean Corpuscular Volume 85.8 fL (81-99); Mean Platelet Vol. 11.7 fl (6.2-12.0); NRBC Flagged by Analyzer 0 % (0-5); Nitrite-Dipstick Negative (Negative); Occult Blood-Urine 50 /ul (Negative); Platelet Count 193 K/mm3 (150-450); Protein-Dipstick 30 mg/dl (Negative); RBC Distribution Width CV 13.5 % (11.6-14.6); RBC Distribution Width SD 42.5 fl (35.1-43.9); Red Blood Count 3.67 M/mm3 (4.2-5.4); Specific Gravity, Urine 1.015 (1.002-1.030); Urine Bilirubin Dipstick Negative (Negative); White Blood Count 17.1 K/mm3 (4.4-11.0)
[2025-01-04 03:04] LABS: Anion Gap 14 (5-15); BUN 20 mg/dL (4-19); BUN/Creat Ratio 22.6 RATIO (10-20); Calcium,Total 9.3 mg/dL (7.6-11.0); Carbon Dioxide 22.7 mmol/L (21.0-32.0); Chloride 97 mmol/L (98-108); Estimated Creatinine Clearance 39.91 ml/min (50-250); Glucose 218 mg/dL (70-99); Potassium 4.1 mmol/L (3.3-5.1)
[2025-01-04 03:12] LABS: Squamous Epithelial Cells - UA 0-5 SEEN /hpf (5-10)
[2025-01-04 03:13] LABS: Mucous, Urine 3+ /hpf (<or=2+)
[2025-01-04 03:18] LABS: Red Blood Cells-Urine 0 SEEN /hpf (0-5)
[2025-01-04 03:30] LABS: Fine Granular Cast- Urine 0-5 SEEN /lpf (0-5)
--- NOTE | 2025-01-04 04:05 | PCM.HP.STD ---
[facility] - General General Date of Admission: 01/04/25 Date of Service: 01/04/25 Chief Complaint: Fall with fracture HPI Narrative Jose SAMPSON, is a 84 F who presents after suffering a fall at home with injury. Patient has significant past medical history of dementia and is no longer be able to be managed at home by her . Patient has had multiple falls this evening after he went to bed. Patient suffered abrasions of her right arm and injury falling on her buttocks. X-ray of the pelvis shows acute mild displaced fracture of the right superior inferior pubic rami. Elbow x-ray was negative for fracture as well as brain CT and C-spine CT were also negative for acute fractures as well. Laboratory studies remarkable for an elevated white blood cell of 17,000 and positive for urinary tract infection. Patient's spouse expressed that the patient is DNR Comfort Care arrest per her wishes. admits he is no longer able to care for her adequately at home and wishes her to be placed especially now that she has a pubic rami fracture. She will be admitted to general medical floor placed on bedrest with case management for discharge planning for long-term care. PENDING SALE TO [facility] Medical History Dementia Blindness of right eye Anemia Gastric reflux Chest pain Wears hearing aid Wears contact lenses Post-menopausal Anxiety History of steroid therapy Thyroid disease Insulin dependent diabetes mellitus Ambulates with cane Arthritis High cholesterol Migraine headache TIA (transient ischemic attack) Difficulty swallowing Dietary restriction History of diverticulitis Non-smoker History of stress test History of rheumatic fever Tardive dyskinesia Major depressive disorder GERD (gastroesophageal reflux disease) Hypertension Hx of emotional problems Home Medications ?Medication ?Instructions ?Recorded ?Last Taken ?Type atorvastatin 40 mg tablet 40 mg PO DAILY 02/28/22 Unknown History hydrochlorothiazide 12.5 mg tablet 12.5 mg PO DAILY BP 02/28/22 Unknown History timolol maleate 0.5 % eye drops 1 drp ophthalmic (eye) BID 02/28/22 Unknown History lisinopril 20 mg tablet 40 mg PO QDAY 07/10/23 Unknown History cholecalciferol (vitamin D3) 25 100 mcg PO QHS 12/08/23 Unknown History mcg (1,000 unit) capsule (Vitamin D3) cinnamon bark 500 mg capsule 1,000 mg PO DAILY cholesterol 12/08/23 Unknown History (Cinnamon) omeprazole 20 mg capsule,delayed 20 mg PO DAILY 12/08/23 Unknown History release insulin aspart U-100 100 unit/mL 1 sliding scale dose subcut TID 05/31/24 Unknown History (3 mL) subcutaneous pen (Novolog FlexPen U-100 Insulin aspart) insulin glargine 100 unit/mL (3 24 unit subcut QHS 10/21/24 Unknown History mL) subcutaneous pen (Basaglar KwikPen U-100 Insulin) dicyclomine 20 mg tablet 20 mg PO BID #28 tabs 10/25/24 Unknown Rx deutetrabenazine 18 mg 18 mg PO QDAY #90 tabs 10/28/24 Unknown Rx tablet,extended release 24 hr (Austedo XR) escitalopram oxalate 10 mg tablet 10 mg PO DAILY #90 tabs 10/28/24 Unknown Rx mirtazapine 15 mg tablet 15 mg PO QHS #90 tabs 10/28/24 Unknown Rx acetaminophen 500 mg tablet 1,000 mg PO TID PRN pain 11/04/24 Unknown History aspirin 81 mg chewable tablet 81 mg PO DAILY 11/04/24 Unknown History haloperidol 2 mg tablet 2 mg PO QHS #30 tabs 01/02/25 Unknown Rx Allergy/AdvReac Type Severity Reaction Status Date / Time codeine Allergy Rash Verified 11/12/24 12:15 morphine Allergy Rash Verified 11/12/24 12:15 Family History Sister Cancer Surgical History 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 Hx of left cataract extraction Hx of right cataract extraction History of esophagogastroduodenoscopy (EGD) Hx of colonoscopy History of carpal tunnel surgery of right wrist History of carpal tunnel surgery of left wrist History of knee replacement H/O repair of rotator cuff H/O: hysterectomy H/O thyroidectomy Social History Smoking Status: Never smoker alcohol intake: never substance use type: does not use ROS Constitutional Constitutional: Reports weakness; Denies chills or fever(s) Eyes Eyes: Denies blurry vision ENT HEENT: Denies abnormal hearing Cardiovascular Cardiovascular: Denies chest pain Respiratory/Chest Respiratory/Chest: Denies shortness of breath at rest Gastrointestinal Gastrointestinal: Denies abdominal pain Genitourinary Genitourinary: Reports urinary frequency Musculoskeletal Musculoskeletal: Reports joint pain; Denies back pain Integumentary Integumentary: Denies dry skin Neurologic Neurologic: Reports confusion Psychiatric Psychiatric: Reports anxiety Vital Signs Vital Signs Vital Signs: 01/04/25 01:12 01/04/25 01:21 01/04/25 03:12 Temperature 97.8 F Temperature Source Oral Pulse Rate 113 H 102 H Respiratory Rate 20 H 14 Respiratory Effort Normal Respiratory Depth Normal Respiratory Pattern Normal Blood Pressure 138/45 H 119/66 Blood Pressure Mean 76 83 Pulse Ox 98 93 Oxygen Delivery Method Room Air Room Air Room Air 01/04/25 03:55 01/04/25 03:57 Temperature 98.1 F 98.1 F Temperature Source Oral Pulse Rate 108 H 106 H Respiratory Rate 16 18 Respiratory Effort Respiratory Depth Respiratory Pattern Blood Pressure 119/66 119/66 Blood Pressure Mean 83 83 Pulse Ox 94 94 Oxygen Delivery Method Room Air Weight Weight: 141 lb 1.533 oz Body Mass Index (BMI) 24.2 Physical Exam Const alert and well nourished General Appearance: cooperative Orientation / Consciousness: confused HEENT normocephalic and head/scalp atraumatic Eyes PERRL Neck no lymphadenopathy Lymph Lymphatic: no lymphadenopathy noted Resp normal respiratory effort, normal air movement and clear to auscultation bilaterally Cardio regular rate, regular rhythm, S1 normal heart sound and S2 normal heart sound Heart Sounds: murmur systolic GI normal to inspection, nondistended, normoactive bowel sounds Extremity normal capillary refill Extremity Narrative: Positive pelvic pain Skin General Skin Exam: no breakdown Neuro no focal motor deficits and no sensory deficits noted Speech: speech abnormal Details: Positive for other (Delayed in response) Motor Exam: strength 5/5 throughout Psych cooperative and affect normal Psych Narrative: Short-term memory impaired Mood & Affect: anxious Results Lab / Micro Data 01/04/25 02:30 01/04/25 02:30 Labs: Laboratory Results - last 24 hr 01/04/25 02:30: WBC 17.1 H, RBC 3.67 L, Hgb 10.7 L, Hct 31.5 L, MCV 85.8, MCH 29.2, MCHC 34.0, RDW Std Deviation 42.5, RDW Coeff of Dario 13.5, Plt Count 193, MPV 11.7, Immature Gran % (Auto) 1.100 H, Neut % (Auto) 85.9 H, Lymph % (Auto) 5.1 L, Baker % (Auto) 7.3, Eos % (Auto) 0.1, Baso % (Auto) 0.5, Absolute Neuts (auto) 14.7 H, Absolute Lymphs (auto) 0.87, Nucleated RBC % 0, Sodium 134, Potassium 4.1, Chloride 97 L, Carbon Dioxide 22.7, Anion Gap 14, BUN 20 H, Creatinine 0.89, Estim Creat Clear Calc 39.91 L, Est GFR (MDRD) Non-Af 63, BUN/Creatinine Ratio 22.6 H, Glucose 218 H, Calcium 9.3, Urine Color Yellow, Urine Clarity Clear, Urine pH 5.0, Ur Specific [place] 1.015, Urine Protein 30 H, Urine Glucose (UA) 250 H, Urine Ketones 15 H, Urine Occult Blood 50 H, Urine Nitrite Negative, Urine Bilirubin Negative, Urine Urobilinogen Normal, Ur Leukocyte Esterase Negative, Urine RBC 0 SEEN, Urine WBC 0-5 SEEN, Ur Squamous Epith Cells 0-5 SEEN, Urine Bacteria 3+, Hyaline Casts 25-50 SEEN, Fine Granular Casts 0-5 SEEN, Urine Mucus 3+ Imaging Radiology Impression Knee X-Ray 01/04/25 01:34 IMPRESSION: Total knee arthroplasty with unremarkable metallic prosthesis. Prepatellar/suprapatellar soft tissue edema and swelling. Reading Location: [facility] Pelvis X-Ray 01/04/25 01:34 IMPRESSION: Acute mildly displaced fractures of the right superior inferior pubic rami. Reading Location: [place] [id number] Elbow X-Ray 01/04/25 02:00 IMPRESSION: No evidence for acute abnormality. Reading Location: [place] [address] 01/04/25 02:01 IMPRESSION: No acute cerebrovascular abnormalities. If clinical symptoms persist, further evaluation with MRI may be considered as clinically warranted. No intra or extra-axial acute hemorrhage. Bilateral cerebral microvascular ischemic changes with brain involutional changes. Stable. Reading Location: [facility] Cervical Spine CT 01/04/25 02:01 IMPRESSION: Straightened cervical curve denoting myospasm. No vertebral fractures, structural collapse or acute dislocation. 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 Reading Location: [facility] Assessment & Plan Assessment/Plan (1) Behavior related to cognitive impairment: (2) Dementia: (3) Hypertension: (4) Diabetes mellitus: (5) Pubic ramus fracture: PLAN: Plan 1 fall at home with acute right superior inferior pubic rami fracture?admit patient to general medical floor, bedrest only and add low-dose morphine as needed for severe pain, consult case management for discharge planning as patient will need long-term care with rehabilitation. Will need to continue fall risk precautions as patient is agitated with her dementia and may potentially be a continued fall risk as a result. 2. Dementia?progressively worsening and at this point is no longer able to care for her at home 3. Urinary tract infection?patient to be treated with Rocephin, repeat CBC BMP in the a.m. 4. Diabetes?continue routine home care 5. DVT prophylaxis?low molecular weight heparin 6. CODE STATUS?DNR Comfort Care arrest confirmed with spouse Charges/Coding Visit Charges Inpatient E&M: 75386 Init Hosp L2
--- NOTE | 2025-01-04 04:45 | EX.ED.DYSGE1 ---
HPI History of Present Illness Chief Complaint: Fall Informant: patient and spouse/S.O. Limited: dementia Narrative Narrative: Patient is 84-year-old female with history of insulin-dependent diabetes and dementia. states that she has been more more combative and he is having difficulty caring for her at home. He states this evening he was trying to lay down and go to sleep when the patient then got up and fell. He states that since the fall she has not been able to stand and she knocked out one of her front teeth. He states he is concern for underlying trauma from the fall and he also reports that he is not capable of caring for her at home any further and would also like her considered for group home placement. Therefore with potential for group home placement and in order to rule out trauma from the reported fall EMS was called and she was brought in for evaluation The patient does not offer any further history based on her dementia [facility] Medical History Dementia Blindness of right eye Anemia Gastric reflux Chest pain Wears hearing aid Wears contact lenses Post-menopausal Anxiety History of steroid therapy Thyroid disease Insulin dependent diabetes mellitus Ambulates with cane Arthritis High cholesterol Migraine headache TIA (transient ischemic attack) Difficulty swallowing Dietary restriction History of diverticulitis Non-smoker History of stress test History of rheumatic fever Tardive dyskinesia Major depressive disorder GERD (gastroesophageal reflux disease) Hypertension Hx of emotional problems Home Medications ?Medication ?Instructions ?Recorded ?Last Taken ?Type atorvastatin 40 mg tablet 40 mg PO DAILY cholesterol 02/28/22 01/03/25 History hydrochlorothiazide 12.5 mg tablet 12.5 mg PO DAILY BP 02/28/22 01/03/25 History timolol maleate 0.5 % eye drops 1 drp ophthalmic (eye) BID [place] 02/28/22 01/03/25 History lisinopril 20 mg tablet 40 mg PO QDAY BP 07/10/23 01/03/25 History cholecalciferol (vitamin D3) 25 100 mcg PO QHS 12/08/23 Unknown History mcg (1,000 unit) capsule (Vitamin D3) cinnamon bark 500 mg capsule 1,000 mg PO DAILY cholesterol 12/08/23 01/03/25 History (Cinnamon) omeprazole 20 mg capsule,delayed 20 mg PO DAILY GERD 12/08/23 01/03/25 History release insulin aspart U-100 100 unit/mL 1 sliding scale dose subcut TID 05/31/24 01/03/25 History (3 mL) subcutaneous pen (Novolog diabetes FlexPen U-100 Insulin aspart) insulin glargine 100 unit/mL (3 24 unit subcut QHS diabetes 10/21/24 01/03/25 History mL) subcutaneous pen (Basaglar KwikPen U-100 Insulin) dicyclomine 20 mg tablet 20 mg PO BID #28 tabs 10/25/24 01/03/25 Rx deutetrabenazine 18 mg 18 mg PO QDAY #90 tabs 10/28/24 01/03/25 Rx tablet,extended release 24 hr (Austedo XR) escitalopram oxalate 10 mg tablet 10 mg PO DAILY #90 tabs 10/28/24 01/03/25 Rx mirtazapine 15 mg tablet 15 mg PO QHS #90 tabs 10/28/24 01/02/25 Rx acetaminophen 500 mg tablet 1,000 mg PO TID PRN pain 11/04/24 01/02/25 History aspirin 81 mg chewable tablet 81 mg PO DAILY heart health 11/04/24 01/03/25 History haloperidol 2 mg tablet 2 mg PO QHS #30 tabs 01/02/25 Unknown Rx amantadine HCl 100 mg capsule 100 mg PO DAILY movement 01/04/25 01/03/25 History hydralazine 10 mg tablet 20 mg PO BID BP 01/04/25 01/03/25 History Allergy/AdvReac Type Severity Reaction Status Date / Time codeine Allergy Rash Verified 11/12/24 12:15 morphine Allergy Rash Verified 11/12/24 12:15 Family History Sister Cancer Surgical History 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 Hx of left cataract extraction Hx of right cataract extraction History of esophagogastroduodenoscopy (EGD) Hx of colonoscopy History of carpal tunnel surgery of right wrist History of carpal tunnel surgery of left wrist History of knee replacement H/O repair of rotator cuff H/O: hysterectomy H/O thyroidectomy Social History Smoking Status: Never smoker alcohol intake: never substance use type: does not use ROS ROS ED ROS Narrative Unable to obtain review of system based on patient's history of dementia Review of Systems ROS Unobtainable: due to mental condition EXAM Physical Exam Const Vital Signs: 01/04/25 01:12 01/04/25 01:21 01/04/25 03:12 Temperature 97.8 F Temperature Source Oral Pulse Rate 113 H 102 H Respiratory Rate 20 H 14 Respiratory Effort Normal Respiratory Depth Normal Respiratory Pattern Normal Blood Pressure 138/45 H 119/66 Blood Pressure Mean 76 83 Pulse Ox 98 93 Oxygen Delivery Method Room Air Room Air Room Air 01/04/25 03:55 01/04/25 03:57 Temperature 98.1 F 98.1 F Temperature Source Oral Pulse Rate 108 H 106 H Respiratory Rate 16 18 Respiratory Effort Respiratory Depth Respiratory Pattern Blood Pressure 119/66 119/66 Blood Pressure Mean 83 83 Pulse Ox 94 94 Oxygen Delivery Method Room Air Positive well nourished and well developed General Appearance ED: well developed HEENT HEENT Narrative: Patient has a dermal layer deep linear 1.5 cm laceration along the midportion of the lower chin consistent with a fall. There is minimal ooze of blood and no retained foreign object There is also 1/2 cm superficial abrasion to the upper chin just below the middle of the lower lip. There is mild ooze of bleeding from this as well. The patient had completely avulsed the upper incisor consistent with 's report of loss of tooth. No sign of jaw fracture. No oral/internal bleeding noted. No signs of depressed or basilar skull fracture No septal hematoma Eyes PERRL and EOMs intact bilaterally Eyes Narrative: No hyphema Neck supple Neck Narrative: No bony deformity or step-off of the cervical spine Chest Wall palpation of chest normal Chest Narrative: No bony deformity or crepitance palpated Resp normal respiratory effort and clear to auscultation bilaterally Cardio regular rate and regular rhythm GI normal to inspection, nondistended, normoactive bowel sounds, non-tender, non-distended and no masses GI Narrative: No voluntary guarding or rigidity or pulsatile mass No overlying abrasions or ecchymosis Auscultation: normoactive bowel sounds Palpation: soft Back/Spine Back/Spine Narrative: No bony deformity or step-off of the thoracic or lumbar spine Extremity Extremity Narrative: Pelvis is stable there is no shortening or external rotation of either lower extremity; however there is pain on palpation along the right inguinal region There is soft tissue swelling over top the anterior aspect of the right knee with ecchymosis noted there as well Patient has a 5 cm skin tear that is dermal layer deep to the dorsal aspect of the proximal right forearm just below the elbow. No active bleeding or foreign body noted. Patient has full active range of motion of both arms at the elbows wrist and shoulder joint All compartments are soft and compressible going against compartment syndrome. Neuro Neuro Narrative: GCS of 14 Patient is at her baseline mental status per ; no focal neurologic deficit noted Psych Psych Narrative: Patient has a flat affect Skin Skin Narrative: Laceration to the chin as well as skin tear and ecchymosis noted along the forearm and lower leg/knee No secondary findings of infection MDM MDM MDM Narrative Medical decision making narrative: Patient arrived to the ER with stable vitals. Based on her dementia history she cannot offer any further history of present illness. states that she has been more aggressive and combative and had a mechanical fall while he was trying to go to sleep. In order to rule out traumatic skull fracture or subarachnoid subdural hemorrhage a CT of the head was obtained. In order to rule out cervical compression fracture a CT of the spine was ordered. In order to check for long bone injury such as femoral neck or pubic rami fracture versus periprosthetic fracture or elbow fracture x-rays were obtained as well. To assess for potential delirium on top of dementia basic blood work was ordered. Labs showed leukocytosis 17.1 which could be from potential infection or stress response from the fall. Otherwise H&H is at baseline she does not have findings of acute kidney injury or clinically significant electrolyte abnormality. Urine sample questions developing UTI with +3 bacteria but negative nitrates and white blood cell. At this time as the patient now has a right sided pubic rami fracture and she cannot ambulate and the fact the states she is too difficult to care for at home I do not feel it is safe for her to return home. Therefore patient will be admitted to the hospitalist to discuss potential group home placement regarding her worsening dementia and now pubic rami fracture. Her urine was sent for culture and she was started on Rocephin secondary to concern for this as the cause of her worsening symptoms. As a pubic rami fracture is a nonsurgical fracture there is no need for emergent consultation with orthopedics The patient's chin laceration was cleaned with chlorhexidine. Manual pressure was then applied to bring the wound edges together well with good approximation. Dermabond was then placed over the top the wound and this held the wound edges together well. Patient tolerated procedure well without complication History & Record Review Discussion w/independent historian: Patient and Family Lab Data Attestation: I reviewed the patient's lab results. Labs: Laboratory Results - last 24 hr 01/04/25 02:30 WBC 17.1 H RBC 3.67 L Hgb 10.7 L Hct 31.5 L MCV 85.8 MCH 29.2 MCHC 34.0 RDW Std Deviation 42.5 RDW Coeff of Dario 13.5 Plt Count 193 MPV 11.7 Immature Gran % (Auto) 1.100 H Neut % (Auto) 85.9 H Lymph % (Auto) 5.1 L [place] % (Auto) 7.3 Eos % (Auto) 0.1 Baso % (Auto) 0.5 Absolute Neuts (auto) 14.7 H Absolute Lymphs (auto) 0.87 Nucleated RBC % 0 Sodium 134 Potassium 4.1 Chloride 97 L Carbon Dioxide 22.7 Anion Gap 14 BUN 20 H Creatinine 0.89 Estim Creat Clear Calc 39.91 L Est GFR (MDRD) Non-Af 63 BUN/Creatinine Ratio 22.6 H Glucose 218 H Calcium 9.3 Urine Color Yellow Urine Clarity Clear Urine pH 5.0 Ur Specific [place] 1.015 Urine Protein 30 H Urine Glucose (UA) 250 H Urine Ketones 15 H Urine Occult Blood 50 H Urine Nitrite Negative Urine Bilirubin Negative Urine Urobilinogen Normal Ur Leukocyte Esterase Negative Urine RBC 0 SEEN Urine WBC 0-5 SEEN Ur Squamous Epith Cells 0-5 SEEN Urine Bacteria 3+ Hyaline Casts 25-50 SEEN Fine Granular Casts 0-5 SEEN Urine Mucus 3+ Radiography Diagnostic Testing: Clinical Impression(s) from Imaging Studies Knee X-Ray 01/04/25 01:34 IMPRESSION: Total knee arthroplasty with unremarkable metallic prosthesis. Prepatellar/suprapatellar soft tissue edema and swelling. Reading Location: [facility] [place] [id number] Pelvis X-Ray 01/04/25 01:34 IMPRESSION: Acute mildly displaced fractures of the right superior inferior pubic rami. Reading Location: [facility] Elbow X-Ray 01/04/25 02:00 IMPRESSION: No evidence for acute abnormality. Reading Location: [facility] Brain CT 01/04/25 02:01 IMPRESSION: No acute cerebrovascular abnormalities. If clinical symptoms persist, further evaluation with MRI may be considered as clinically warranted. No intra or extra-axial acute hemorrhage. Bilateral cerebral microvascular ischemic changes with brain involutional changes. Stable. Reading Location: [facility] Cervical Spine CT 01/04/25 02:01 IMPRESSION: Straightened cervical curve denoting myospasm. No vertebral fractures, structural collapse or acute dislocation. 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 Reading Location: [facility] Right knee x-ray as interpreted by the emergency medicine physician reveals hardware to be intact and in place without acute fracture dislocation or joint effusion Right elbow x-ray as interpreted by the emergency medicine physician reveals no acute fracture dislocation or joint effusion 1 view pelvis x-ray as interpreted by emergency medicine physician reveals a mildly displaced suprapubic and inferior pubic rami fracture on the right Management Discussion w/another healthcare provider: Hospitalist Discharge Plan Dx/Rx/DC Orders Clinical Impression: Pubic ramus fracture, Dementia, Hypertension, Behavior related to cognitive impairment, Insulin dependent diabetes mellitus Disposition Disposition: Acute Care [facility] Discharge Date/Time: 01/04/25 04:48
[2025-01-04 06:35] LABS: Hematocrit 29.9 % (37-47); Hemoglobin 10.5 g/dL (12.0-15.0); Immature Granulocytes Count 0.060 X10^3/uL (0.0-0.0); Mean Corp Hgb Conc 35.1 g/dL (32-36); Mean Corpuscular Volume 84.5 fL (81-99); Mean Platelet Vol. 11.5 fl (6.2-12.0); NRBC Flagged by Analyzer 0 % (0-5); Platelet Count 162 K/mm3 (150-450); RBC Distribution Width CV 13.6 % (11.6-14.6); RBC Distribution Width SD 41.9 fl (35.1-43.9); Red Blood Count 3.54 M/mm3 (4.2-5.4); White Blood Count 12.4 K/mm3 (4.4-11.0)
[2025-01-04 07:17] LABS: Anion Gap 12 (5-15); BUN 19 mg/dL (4-19); BUN/Creat Ratio 26.1 RATIO (10-20); Calcium,Total 9.2 mg/dL (7.6-11.0); Carbon Dioxide 23.7 mmol/L (21.0-32.0); Chloride 99 mmol/L (98-108); Estimated Creatinine Clearance 44.40 ml/min (50-250); Glucose 171 mg/dL (70-99); Potassium 3.4 mmol/L (3.3-5.1)
--- NOTE | 2025-01-04 07:26 | PN.HOSP_ITS ---
Reason for Visit
--- NOTE | 2025-01-04 07:26 | PCM.PN.HOSP ---
Reason for Visit Chief Complaint: Fall with fracture Subjective Subjective Patient is an 84-year-old lady who was brought in following a fall at home. Imaging studies demonstrated Acute mildly displaced fractures of the right superior inferior pubic rami. Mild osteopenia of the visualized bones. Degenerative joint disease. No dislocation is seen. Admitted to regular nursing floor for further management Objective Data Objective Data Vital Signs: Vital Signs Temp Pulse Resp BP Pulse Ox O2 Del Method 98.9 F 101 H 18 123/61 H 93 Room Air 01/04/25 05:46 01/04/25 05:46 01/04/25 05:46 01/04/25 05:46 01/04/25 05:46 01/04/25 05:46 Oxygen Delivery Method Room Air Weight: 61.7 kg Body Mass Index (BMI) 23.3 Intake & Output: Intake and Output for Last 24 Hours 01/02/25 01/03/25 01/04/25 23:59 23:59 23:59 Intake Total 100 / 100 Balance 100 / 100 Lab / Micro Data 01/04/25 06:24 01/04/25 06:24 Labs: Laboratory Results - last 24 hr 01/04/25 02:30: WBC 17.1 H, RBC 3.67 L, Hgb 10.7 L, Hct 31.5 L, MCV 85.8, MCH 29.2, MCHC 34.0, RDW Std Deviation 42.5, RDW Coeff of Dario 13.5, Plt Count 193, MPV 11.7, Immature Gran % (Auto) 1.100 H, Neut % (Auto) 85.9 H, Lymph % (Auto) 5.1 L, [place] % (Auto) 7.3, Eos % (Auto) 0.1, Baso % (Auto) 0.5, Absolute Neuts (auto) 14.7 H, Absolute Lymphs (auto) 0.87, Nucleated RBC % 0, Sodium 134, Potassium 4.1, Chloride 97 L, Carbon Dioxide 22.7, Anion Gap 14, BUN 20 H, Creatinine 0.89, Estim Creat Clear Calc 39.91 L, Est GFR (MDRD) Non-Af 63, BUN/Creatinine Ratio 22.6 H, Glucose 218 H, Calcium 9.3, Urine Color Yellow, Urine Clarity Clear, Urine pH 5.0, Ur Specific [place] 1.015, Urine Protein 30 H, Urine Glucose (UA) 250 H, Urine Ketones 15 H, Urine Occult Blood 50 H, Urine Nitrite Negative, Urine Bilirubin Negative, Urine Urobilinogen Normal, Ur Leukocyte Esterase Negative, Urine RBC 0 SEEN, Urine WBC 0-5 SEEN, Ur Squamous Epith Cells 0-5 SEEN, Urine Bacteria 3+, Hyaline Casts 25-50 SEEN, Fine Granular Casts 0-5 SEEN, Urine Mucus 3+ 01/04/25 06:24: WBC 12.4 H, RBC 3.54 L, Hgb 10.5 L, Hct 29.9 L, MCV 84.5, MCH 29.7, MCHC 35.1, RDW Std Deviation 41.9, RDW Coeff of Dario 13.6, Plt Count 162, MPV 11.5, Immature Gran % (Auto) 0.500, Neut % (Auto) 84.0 H, Lymph % (Auto) 7.6 L, [place] % (Auto) 7.7, Eos % (Auto) 0.0, Baso % (Auto) 0.2, Absolute Neuts (auto) 10.4 H, Absolute Lymphs (auto) 0.94, Nucleated RBC % 0, Sodium 134, Potassium 3.4, Chloride 99, Carbon Dioxide 23.7, Anion Gap 12, BUN 19, Creatinine 0.74, Estim Creat Clear Calc 44.40 L, Est GFR (MDRD) Non-Af 80, BUN/Creatinine Ratio 26.1 H, Glucose 171 H, Calcium 9.2 Radiography Diagnostic Testing: Radiology Impression Knee X-Ray 01/04/25 01:34 IMPRESSION: Total knee arthroplasty with unremarkable metallic prosthesis. Prepatellar/suprapatellar soft tissue edema and swelling. [facility] Pel[facility] 01/04/25 01:34 IMPRESSION: Acute mildly displaced fractures of the right superior inferior pubic rami. Reading Location: [place] [address] Elbow X-Ray 01/04/25 02:00 IMPRESSION: No evidence for acute abnormality. Reading Location: [place] [address] 01/04/25 02:01 IMPRESSION: No acute cerebrovascular abnormalities. If clinical symptoms persist, further evaluation with MRI may be considered as clinically warranted. No intra or extra-axial acute hemorrhage. Bilateral cerebral microvascular ischemic changes with brain involutional changes. Stable. Reading Location: [place] [address] 01/04/25 02:01 IMPRESSION: Straightened cervical curve denoting myospasm. No vertebral fractures, structural collapse or acute dislocation. 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 Reading Location: [place] [address] Physical Exam Narrative GENERAL: cooperative HEENT: Atraumatic; normocephalic EYES; Anicteric, Normal Conjunctiva NECK; supple, normal thyroid, RESPIRATORY: Diminished to auscultation CARDIOVASCULAR: Regular S1 S2, GI: soft, normoactive bowel sounds, : No Renal angle tenderness; EXTREMITIES: No edema, no clubbing, MUSCULOSKELETAL: no muscle wasting NEURO: Awake; no lateralizing signs. SKIN: Bruising on the chin, bilateral and left as well as skin tears on the right forearm PSYCH; Flat affect Assessment & Plan Assessment/Plan (1) Behavior related to cognitive impairment: (2) Dementia: (3) Hypertension: (4) Diabetes mellitus: (5) Pubic ramus fracture: PLAN: Plan Patient is an 84-year-old lady who was brought in following a fall at home. Imaging studies demonstrated Acute mildly displaced fractures of the right superior inferior pubic rami. Mild osteopenia of the visualized bones. Degenerative joint disease. No dislocation is seen. Admitted to regular nursing floor for further management 1. Fall with pubic rami fracture ?Imaging studies demonstrated Acute mildly displaced fractures of the right superior inferior pubic rami. Mild osteopenia of the visualized bones. Degenerative joint disease. No dislocation is seen. Admitted to regular nursing floor for further management 2. Physical debility ? Secondary to above requested for PT OT eval and social worker aide to assist with discharge planning 3.. Diabetes mellitus type II Patient long-acting insulin continued in addition to, Accu-Cheks a.c. and at bedtime and covered with sliding scale insulin 4. Hypertension ? Blood pressure control not optimal did continue home meds with plans to adjust doses as needed 5. Dyslipidemia ?Patient is on statin therapy, continued at home dose 6. Depression with anxiety ? Patient is on escitalopram and Remeron at night 7. GERD ? On PPI 8. Dementia ? With episodic behavioral agitation and confusion 9. DVT prophylaxis ? Subcu heparin Time spent in the patient's overall evaluation,decision-making process, review of diagnostic data, adjustment of management, discussion with other providers, nursing nursing and ancillary staff involved in patient's care documentation, and discussion with patient's son 38Minutes Charges/Coding Multi Select Codes Visit Charges Visit Charges: 39450 PROLNG IP/OBS E/M EA 15 MIN (Prolonged time spent 38 minutes [id number], [id number])
[2025-01-04] MEDS: Timolol 0.5% 5ML OPTH.BTL 1 DRP OPHTHALMIC ×2 (09:32→21:00)
[2025-01-04] MEDS: Ensure Plus High Protein 120 ML LIQUID PO ×3 (09:37→16:32)
--- NOTE | 2025-01-04 13:14 | CASEMGMT ---
EYAL CHASE Assessment Face to Face with patient for initial transition planning/care coordination assessment. EYAL CHASE introduced self and role at [facility], pt voices understanding. Pt is A&Ox3 and is resting comfortably in bed and is calm. Pt has a hx of dementia and is currently unable to answer this comic writer's questions accordingly. Pt's son (Aaron) is at the bedside and is willing to help. Aaron states that the pt's is at home catching up on sleep. Care providers, pharmacy, and demographics verified. Admitting dx: Fall with pubic rami fracture, dementia PCP: Mta [facility] Specialists: Ree (Ortho), Ángel (PM), Peggy (Psych) Preferred Pharmacy: [facility] Insurance: [facility] A/B, [employer] Prescription Benefit: Yes LNOK: Sami (H), Aaron (Son) Living Arrangements: Pt lives with her in a single story home with 2 steps to enter ADLs/IADLs: Son reports that the pt's has been providing care and currently does not feel like he can provide enough care for the pt Transportation: , family DME: [employer] with sufficient supplies. FWW. WC. Cane. Shower chair HHC/SNF: Hx @ [facility], and [facility] for [facility] placement. Aaron reports the pt is active with [facility]. DPA notified. Pt?s goal: TBD Plan: TBD. Anticipate SNF at the time of DC. Potentially memory care unit. At this time, PT is ordered and pending. Pt's son educated about the MCR 3 MN rule. Pt's son states that the pt is not safe to go home with the pt's in the pt's current condition. CM to follow. Report given to NIMISHA BIRCH CM and SW. Daija Hercules RN, CM
--- NOTE | 2025-01-04 14:27 | CASEMGMT ---
Discharge Planning A list of SNF providers including quality and resource use data and consistent with the patient's preferred geographic region, medical needs, and insurance network was created in CarePort Guide.? This list was provided to the RN SALVATORE. Elsie Figueroa, Discharge Planning Asst
[2025-01-04] MEDS: DEUTETRABENAZINE PO (16:31)
[2025-01-04] MEDS: Cholecalciferol (VIT D3) 25 MCG TABLET (1,000 UNITS) 100 MCG PO (21:00)
[2025-01-04] MEDS: Insulin Glargine-YFGN 100 UNIT/ML Pen 24 UNIT SC (21:21)
[2025-01-05 05:54] VITALS: BP 126/55; PULSE 90; RESP 16; TEMP 37.1; O2SAT 95
[2025-01-05 07:06] LABS: Hematocrit 27.6 % (37-47); Hemoglobin 9.6 g/dL (12.0-15.0); Immature Granulocytes Count 0.050 X10^3/uL (0.0-0.0); Mean Corp Hgb Conc 34.8 g/dL (32-36); Mean Corpuscular Volume 86.0 fL (81-99); Mean Platelet Vol. 12.1 fl (6.2-12.0); NRBC Flagged by Analyzer 0 % (0-5); Platelet Count 124 K/mm3 (150-450); RBC Distribution Width CV 13.6 % (11.6-14.6); RBC Distribution Width SD 43.2 fl (35.1-43.9); Red Blood Count 3.21 M/mm3 (4.2-5.4); White Blood Count 9.8 K/mm3 (4.4-11.0)
--- NOTE | 2025-01-05 07:24 | PN.HOSP_ITS ---
Reason for Visit
--- NOTE | 2025-01-05 07:24 | PCM.PN.HOSP ---
Reason for Visit Chief Complaint: Fall with fracture Subjective Subjective Patient seen denies pain this a.m. Had a relative uneventful night. Awaiting placement in a penitentiary facility Objective Data Objective Data Vital Signs: Vital Signs Temp Pulse Resp BP Pulse Ox O2 Del Method 98.7 F 90 16 126/55 H 95 Room Air 01/05/25 05:54 01/05/25 05:54 01/05/25 05:54 01/05/25 05:54 01/05/25 05:54 01/05/25 05:54 Oxygen Delivery Method Room Air Weight: 61.7 kg Body Mass Index (BMI) 23.3 Intake & Output: Intake and Output for Last 24 Hours 01/03/25 01/04/25 01/05/25 23:59 23:59 23:59 Intake Total 1030 / 1180 250 / 250 Output Total 500 / 500 Balance 530 / 680 250 / 250 Medical Nutrition Assessment Dietitian: Malnutrition Criteria Met Start: 01/04/25 14:42 Freq: Status: Active Protocol: Document 01/04/25 14:42 RMA (Rec: 01/04/25 14:42 RMA [id number]) Nutrition Malnutrition Evidence of Yes Malnutrition Exists Malnutrition (severe Chronic ): Evidenced By Suboptimal Energy Intake (Severe),Weight Loss (Severe) Intake Problem Decreased Nutrient Needs (specify) Etiology for carbohydrates related to hyperglycemia Signs/Symptoms as evidenced by blood glucose 171, 297 Status Active Problem Clinical Problem Chronic Disease or Condition Related Malnutrition Etiology severe protein-calorie malnutrition in the context of chronic disease and debility related to inadequate oral /energy intake Signs/Symptoms as evidenced by ~9-10% unintentional weight loss x 6 months and PO meeting less than 75% estimated nutrition needs x 6-12 months Status Active Problem Recommendation Dietitian Will adjust diet to carbohydrate-controlled (no caloric Recommendations/ restriction). Changes Will continue 120ml ensure plus HP 3 times per day w/ medpass as ordered. Will add 240mL glucerna shake w/ breakfast tray. Will liberalize diet as able if PO declines at meals. Lab / Micro Data 01/05/25 06:53 01/05/25 06:53 Labs: Laboratory Results - last 24 hr 01/04/25 06:32: POC Glucose 171 H 01/04/25 10:52: POC Glucose 297 H 01/04/25 16:22: POC Glucose 271 H 01/04/25 21:22: POC Glucose 316 H 01/05/25 06:13: POC Glucose 196 H 01/05/25 06:53: WBC 9.8, RBC 3.21 L, Hgb 9.6 L, Hct 27.6 L, MCV 86.0, MCH 29.9, MCHC 34.8, RDW Std Deviation 43.2, RDW Coeff of Dario 13.6, Plt Count 124 L, MPV 12.1 H, Immature Gran % (Auto) 0.500, Neut % (Auto) 74.6 H, Lymph % (Auto) 13.7 L, [place] % (Auto) 9.1, Eos % (Auto) 1.8, Baso % (Auto) 0.3, Absolute Neuts (auto) 7.3, Absolute Lymphs (auto) 1.34, Nucleated RBC % 0 Physical Exam Narrative GENERAL: cooperative HEENT: Atraumatic; normocephalic EYES; Anicteric, Normal Conjunctiva NECK; supple, normal thyroid, RESPIRATORY: Diminished to auscultation CARDIOVASCULAR: Regular S1 S2, GI: soft, normoactive bowel sounds, : No Renal angle tenderness; EXTREMITIES: No edema, no clubbing, MUSCULOSKELETAL: no muscle wasting NEURO: Awake; no lateralizing signs. SKIN: Bruising on the chin, bilateral and left as well as skin tears on the right forearm PSYCH; Flat affect Assessment & Plan Assessment/Plan (1) Behavior related to cognitive impairment: (2) Dementia: (3) Hypertension: (4) Diabetes mellitus: (5) Pubic ramus fracture: PLAN: Plan Patient is an 84-year-old lady who was brought in following a fall at home. Imaging studies demonstrated Acute mildly displaced fractures of the right superior inferior pubic rami. Mild osteopenia of the visualized bones. Degenerative joint disease. No dislocation is seen. Admitted to regular nursing floor for further management 1. Fall with pubic rami fracture ?Imaging studies demonstrated Acute mildly displaced fractures of the right superior inferior pubic rami. Mild osteopenia of the visualized bones. Degenerative joint disease. No dislocation is seen. Admitted to regular nursing floor for further management ? 01/05/2025; patient pain appears well controlled. Will continue PT OT as tolerated pending placement in a penitentiary facility 2. Physical debility ? Secondary to above requested for PT OT eval and social worker masters to assist with discharge planning 3.. Diabetes mellitus type II Patient long-acting insulin continued in addition to, Accu-Cheks a.c. and at bedtime and covered with sliding scale insulin 4. Hypertension ? Blood pressure control not optimal did continue home meds with plans to adjust doses as needed 5. Dyslipidemia ?Patient is on statin therapy, continued at home dose 6. Depression with anxiety ? Patient is on escitalopram and Remeron at night 7. GERD ? On PPI 8. Dementia ? With episodic behavioral agitation and confusion 9. Anemia ? Secondary to chronic disorder monitoring H&H and transfuse if patient becomes symptomatic or hemoglobin falls below 7 10. Mild hyponatremia ? Will monitor with repeat BMP in a.m. 11 DVT prophylaxis ? Subcu heparin Time spent in the patient's overall evaluation,decision-making process, review of diagnostic data, adjustment of management, discussion with other providers, nursing nursing and ancillary staff involved in patient's care documentation, and discussion with patient's son 36 Minutes Charges/Coding Visit Charges Inpatient E&M: 27781 Subs Hosp L2
[2025-01-05 07:30] LABS: Anion Gap 8 (5-15); BUN 18 mg/dL (4-19); BUN/Creat Ratio 30.8 RATIO (10-20); Calcium,Total 8.4 mg/dL (7.6-11.0); Carbon Dioxide 25.2 mmol/L (21.0-32.0); Chloride 99 mmol/L (98-108); Estimated Creatinine Clearance 44.40 ml/min (50-250); Glucose 207 mg/dL (70-99); Magnesium 1.5 mg/dL (1.5-2.2); Potassium 3.3 mmol/L (3.3-5.1)
[2025-01-05 08:27] VITALS: BP 121/55; PULSE 80; RESP 15; TEMP 36.4; O2SAT 97
[2025-01-05 09:46] VITALS: PULSE 80
[2025-01-05] MEDS: Na Biphos/Potassium Phosphate PACKET 1 PACKET PO ×2 (09:46→21:29)
[2025-01-05] MEDS: DEUTETRABENAZINE PO (09:47)
[2025-01-05] MEDS: Timolol 0.5% 5ML OPTH.BTL 1 DRP OPHTHALMIC ×2 (09:48→21:27)
--- NOTE | 2025-01-05 10:42 | CASEMGMT ---
Spoke with Alessia Salcedo from [facility] to discuss pt care. She states that she has been working with pt for AL. Discussed that RN CM will meet with pt and today and a list has been created for SNF's with memory care availability. She states that pt would not want a memory care related to a SNF. She states they have been working on an AL such as [facility] or [facility]. Pt is max A x2 currently. RN CM to disuss with ELENA and ELENA roofing contractor CM to follow with pt and . Alessia requests clinicals be emailed to her. No records sent at this time. Her phone is [phone].
--- NOTE | 2025-01-05 11:43 | CASEMGMT ---
Addendum entered by Keesha Hernandez 01/05/25 17:26: [facility] declined referral. [facility] sent for clinical review. CARYN Peralta Addendum entered by Keesha Hernandez 01/05/25 16:42: [facility]. ELENA met with pt, pt spouse, and pt dtr. [facility] and [facility] are next FOC. Pt spouse does not have preference between the two and agreeable to referrals being sent at the same time. Pt spouse to visit tomorrow around noon; if updates are available prior, SW can call pt spouse. ELENA completed referrals. SW remains available to follow. CARYN Peralta Addendum entered by Keesha Hernandez 01/05/25 12:56: [facility] declined referral. Pt spouse reports that [facility] was at [facility] and that would be their second choice. ELENA explained that typically rehab units require greater medical complexity, so additional choices may be required. SW will continue to provide updates. [facility] notified of referral request. SW to follow. CARYN Peralta Original Note: Social Work- ELENA met with pt, pt spouse, and pt brother, Danny, to discuss therapy recommendations and discharge planning. ELENA introduced self and role. Pt reports that prior to fall, he was working with [facility] on placement to memory care AL. Pt reports that he is in agreement that pt needs SNF at this time due to pt debility. A list of SNF providers including quality and resource use data and consistent with the patient?s preferred geographic region, medical needs, and insurance network [facility] as [facility]. Pt will review list for additional choices. ELENA completed referral to TCU. ELENA remains available to follow. CARYN Peralta
--- NOTE | 2025-01-05 14:02 | CASEMGMT ---
Addendum entered by Elsie Figueroa 01/05/25 15:39: [facility] declined. SW updated. Elsie Figueroa DC Planning Asst. Original Note: Discharge Planning Referral sent via [facility]Port to [facility]. Elsie Figueroa DC Planning Asst.
[2025-01-05 14:30] VITALS: BP 121/57; PULSE 87; RESP 15; TEMP 36.3; O2SAT 100
[2025-01-05] MEDS: Ensure Plus High Protein 120 ML LIQUID PO (16:23)
[2025-01-05 21:13] VITALS: BP 124/63; PULSE 98; RESP 18; TEMP 36.4; O2SAT 97
[2025-01-05] MEDS: Cholecalciferol (VIT D3) 25 MCG TABLET (1,000 UNITS) 100 MCG PO (21:26)
[2025-01-05 21:28] VITALS: PULSE 98
[2025-01-05] MEDS: Insulin Glargine-YFGN 100 UNIT/ML Pen 24 UNIT SC (21:30)
[2025-01-06] VITALS (7 sets, daily range): BP systolic 102–140; BP diastolic 48–55; PULSE 78–91; RESP 14–18; TEMP 36.4–36.9; O2SAT 95–99
--- NOTE | 2025-01-06 07:26 | PN.HOSP_ITS ---
Reason for Visit
--- NOTE | 2025-01-06 07:26 | PCM.PN.HOSP ---
Reason for Visit Chief Complaint: Fall with fracture Subjective Subjective Patient seen complains of hurting whenever she walks. Plan is for patient to be discharged to [facility] facility on 01/08/2020 Objective Data Objective Data Vital Signs: Vital Signs Temp Pulse Resp BP Pulse Ox O2 Del Method 98.4 F 84 18 131/55 H 95 Room Air 01/06/25 03:02 01/06/25 03:02 01/06/25 03:02 01/06/25 03:02 01/06/25 03:02 01/06/25 03:02 Oxygen Delivery Method Room Air Weight: 61.7 kg Body Mass Index (BMI) 23.3 Intake & Output: Intake and Output for Last 24 Hours 01/04/25 01/05/25 01/06/25 23:59 23:59 23:59 Intake Total 1030 / 1180 850 / 850 Output Total 500 / 500 700 / 700 Balance 530 / 680 850 / 450 -700 / -700 Medical Nutrition Assessment Dietitian: Malnutrition Criteria Met Start: 01/04/25 14:42 Freq: Status: Active Protocol: Document 01/04/25 14:42 RMA (Rec: 01/04/25 14:42 RMA [id number]) Nutrition Malnutrition Evidence of Yes Malnutrition Exists Malnutrition (severe Chronic ): Evidenced By Suboptimal Energy Intake (Severe),Weight Loss (Severe) Intake Problem Decreased Nutrient Needs (specify) Etiology for carbohydrates related to hyperglycemia Signs/Symptoms as evidenced by blood glucose 171, 297 Status Active Problem Clinical Problem Chronic Disease or Condition Related Malnutrition Etiology severe protein-calorie malnutrition in the context of chronic disease and debility related to inadequate oral /energy intake Signs/Symptoms as evidenced by ~9-10% unintentional weight loss x 6 months and PO meeting less than 75% estimated nutrition needs x 6-12 months Status Active Problem Recommendation Dietitian Will adjust diet to carbohydrate-controlled (no caloric Recommendations/ restriction). Changes Will continue 120ml ensure plus HP 3 times per day w/ medpass as ordered. Will add 240mL glucerna shake w/ breakfast tray. Will liberalize diet as able if PO declines at meals. Lab / Micro Data 01/06/25 07:21 01/06/25 07:21 Labs: Laboratory Results - last 24 hr 01/05/25 06:53: Sodium 132 L, Potassium 3.3, Chloride 99, Carbon Dioxide 25.2, Anion Gap 8, BUN 18, Creatinine 0.57 L, Estim Creat Clear Calc 44.40 L, Est GFR (MDRD) Non-Af 89, BUN/Creatinine Ratio 30.8 H, Glucose 207 H, Calcium 8.4, Phosphorus 2.5 L, Magnesium 1.5 01/05/25 11:24: POC Glucose 340 H 01/05/25 16:22: POC Glucose 247 H 01/05/25 21:06: POC Glucose 343 H 01/06/25 06:08: POC Glucose 213 H Micro: Microbiology 01/04/25 02:30 Urine, Catheterized Urine Culture - Preliminary Staphylococcus species Gram negative beverly Physical Exam Narrative GENERAL: cooperative HEENT: Atraumatic; normocephalic EYES; Anicteric, Normal Conjunctiva NECK; supple, normal thyroid, RESPIRATORY: Diminished to auscultation CARDIOVASCULAR: Regular S1 S2, GI: soft, normoactive bowel sounds, : No Renal angle tenderness; EXTREMITIES: No edema, no clubbing, MUSCULOSKELETAL: no muscle wasting NEURO: Awake; no lateralizing signs. SKIN: Bruising on the chin, bilateral and left as well as skin tears on the right forearm PSYCH; Flat affect Assessment & Plan Assessment/Plan (1) Behavior related to cognitive impairment: (2) Dementia: (3) Hypertension: (4) Diabetes mellitus: (5) Pubic ramus fracture: PLAN: Plan Patient is an 84-year-old lady who was brought in following a fall at home. Imaging studies demonstrated Acute mildly displaced fractures of the right superior inferior pubic rami. Mild osteopenia of the visualized bones. Degenerative joint disease. No dislocation is seen. Admitted to regular nursing floor for further management 1. Fall with pubic rami fracture ?Imaging studies demonstrated Acute mildly displaced fractures of the right superior inferior pubic rami. Mild osteopenia of the visualized bones. Degenerative joint disease. No dislocation is seen. Admitted to regular nursing floor for further management ? 01/05/2025; patient pain appears well controlled. Will continue PT OT as tolerated pending placement in a [facility] facility ? 01/06/2025; will continue current pain management for patient is ready to discharge to SNF on 01/08/2020 2. Physical debility ? Secondary to above requested for PT OT eval and social worker masters to assist with discharge planning 3.. Diabetes mellitus type II Patient long-acting insulin continued in addition to, Accu-Cheks a.c. and at bedtime and covered with sliding scale insulin 4. Hypertension ? Blood pressure control not optimal did continue home meds with plans to adjust doses as needed 5. Dyslipidemia ?Patient is on statin therapy, continued at home dose 6. Depression with anxiety ? Patient is on escitalopram and Remeron at night 7. GERD ? On PPI 8. Dementia ? With episodic behavioral agitation and confusion 9. Anemia ? Secondary to chronic disorder monitoring H&H and transfuse if patient becomes symptomatic or hemoglobin falls below 7 01/06/2025 hemoglobin down to 9.8 will continue to monitor 10. Mild hyponatremia ? Will monitor with repeat BMP in a.m. ? 01/06/2025; patient sodium level up to 135 11. Mild hyponatremia ? Additional potassium replacement 12. DVT prophylaxis ? Subcu heparin Time spent in the patient's overall evaluation,decision-making process, review of diagnostic data, adjustment of management, discussion with other providers, nursing nursing and ancillary staff involved in patient's care documentation, 35 Minutes Charges/Coding Visit Charges Inpatient E&M: 94606 Subs Hosp L2
[2025-01-06 07:50] LABS: Hematocrit 28.0 % (37-47); Hemoglobin 9.8 g/dL (12.0-15.0); Immature Granulocytes Count 0.040 X10^3/uL (0.0-0.0); Mean Corp Hgb Conc 35.0 g/dL (32-36); Mean Corpuscular Volume 84.6 fL (81-99); Mean Platelet Vol. 12.3 fl (6.2-12.0); NRBC Flagged by Analyzer 0 % (0-5); Platelet Count 158 K/mm3 (150-450); RBC Distribution Width CV 13.7 % (11.6-14.6); RBC Distribution Width SD 42.5 fl (35.1-43.9); Red Blood Count 3.31 M/mm3 (4.2-5.4); White Blood Count 10.8 K/mm3 (4.4-11.0)
[2025-01-06 08:34] LABS: Anion Gap 10 (5-15); BUN 15 mg/dL (4-19); BUN/Creat Ratio 26.9 RATIO (10-20); Calcium,Total 8.9 mg/dL (7.6-11.0); Carbon Dioxide 25.4 mmol/L (21.0-32.0); Chloride 100 mmol/L (98-108); Estimated Creatinine Clearance 44.40 ml/min (50-250); Glucose 220 mg/dL (70-99); Potassium 3.4 mmol/L (3.3-5.1)
[2025-01-06] MEDS: Ensure Plus High Protein 120 ML LIQUID PO (09:27)
[2025-01-06] MEDS: Na Biphos/Potassium Phosphate PACKET 1 PACKET PO ×2 (09:30→22:04)
[2025-01-06] MEDS: Timolol 0.5% 5ML OPTH.BTL 1 DRP OPHTHALMIC ×2 (09:31→22:02)
[2025-01-06] MEDS: DEUTETRABENAZINE PO (09:32)
--- NOTE | 2025-01-06 11:30 | CASEMGMT ---
Discharge Planning [facility] has declined. SW updated. Elsie Figueroa DC Planning Asst.
--- NOTE | 2025-01-06 12:05 | CASEMGMT ---
Social Work SW met with pt and pts Sami to discuss discharge plan. SW informed that [facility] and [facility] are unable to accept pt. SW assisted spouse in reviewing list and provided emotional support as spouse is having difficulty making a decision and placing pt in a SNF. After discussion with pt and spouse, referrals requested to [facility]. [facility] activity assistant updated and referrals to be sent. CARYN Chen
--- NOTE | 2025-01-06 13:30 | CASEMGMT ---
Social Work SW again met with pt and spouse to discuss discharge. Spouse states he spoke with his son and also with pt and they now feel [facility] is too far away. Spouse requesting referral to [facility] be cancelled and that a referral be sent to [facility] as well as the previous referral to [facility]. Per spouse, pt will likely need penitentiary care in a memory unit and spouse would prefer [facility] or [facility] for this. DC speech pathologist assistant reached out to [facility] again to double check on rooms in memory care for pt. [facility] has no available rooms at this time. SW informed spouse of this and encouraged spouse to put pts name on waiting list and that after skilled stay and when a bed became available in one of these facilities, pt can be transferred. Spouse understanding. Referral to [facility] cancelled and new referral sent to [facility]. CARYN Chen
--- NOTE | 2025-01-06 14:22 | CASEMGMT ---
Addendum entered by Elsie Figueroa 01/06/25 16:27: [facility] Pts wishes to proceed. [facility] updated and [facility] asked to cancel referral. updated. Elsie Figueroa DC Planning Asst Original Note: Discharge Planning Referral sent via [facility]Port to [facility] and [facility]. Elsie Figueroa DC Planning Asst.
[2025-01-06] MEDS: Cholecalciferol (VIT D3) 25 MCG TABLET (1,000 UNITS) 100 MCG PO (22:02)
[2025-01-06] MEDS: Insulin Glargine-YFGN 100 UNIT/ML Pen 24 UNIT SC (22:03)
[2025-01-06] MEDS: 0.9% Saline Lock 10 ML Syringe IV (22:11)
[2025-01-07 02:15] VITALS: BP 121/56; PULSE 86; RESP 16; TEMP 36.7; O2SAT 98
[2025-01-07 06:59] LABS: Hematocrit 28.3 % (37-47); Hemoglobin 9.8 g/dL (12.0-15.0); Immature Granulocytes Count 0.040 X10^3/uL (0.0-0.0); Mean Corp Hgb Conc 34.6 g/dL (32-36); Mean Corpuscular Volume 85.2 fL (81-99); Mean Platelet Vol. 11.7 fl (6.2-12.0); NRBC Flagged by Analyzer 0 % (0-5); Platelet Count 177 K/mm3 (150-450); RBC Distribution Width CV 13.9 % (11.6-14.6); RBC Distribution Width SD 42.7 fl (35.1-43.9); Red Blood Count 3.32 M/mm3 (4.2-5.4); White Blood Count 9.2 K/mm3 (4.4-11.0)
[2025-01-07 07:22] LABS: Anion Gap 8 (5-15); BUN 13 mg/dL (4-19); BUN/Creat Ratio 24.0 RATIO (10-20); Calcium,Total 8.6 mg/dL (7.6-11.0); Carbon Dioxide 26.4 mmol/L (21.0-32.0); Chloride 100 mmol/L (98-108); Estimated Creatinine Clearance 44.40 ml/min (50-250); Glucose 198 mg/dL (70-99); Potassium 3.4 mmol/L (3.3-5.1)
[2025-01-07] MEDS: Ensure Plus High Protein 120 ML LIQUID PO (08:49)
[2025-01-07 08:50] VITALS: PULSE 96
[2025-01-07] MEDS: DEUTETRABENAZINE PO (08:51)
[2025-01-07] MEDS: Na Biphos/Potassium Phosphate PACKET 1 PACKET PO (08:53)
[2025-01-07] MEDS: Timolol 0.5% 5ML OPTH.BTL 1 DRP OPHTHALMIC (08:54)
--- NOTE | 2025-01-07 10:20 | PCM.TXEXTCAR ---
Diet Diet Order/Speech Therapy: INPATIENT Hospital Diet / Speech Therapy Order(s) 01/04/25 14:24 Diet: Carbohydrate Controlled Food consistency:: Regular Liquid Consistency:: Regular/Thin Type of Dietary Supplement:: Glucerna Shake Diet Comments: 240ml glucerna shake with breakfast Routine Orders/Code Status Suppository Type: Dulcolax 10mg Suppository Frequency: Daily PRN DC O2, CPAP, BIPAP needs Home O2 Discharge instructions: No Wound(s) RIGHT PROXIMAL FORARM (POSTERIOR): Wound Type: Skin Tear LOWER LIP: Wound Type: Laceration CHIN: Wound Type: Laceration Left lamas: Wound Type: Skin Tear Right Lamas: Wound Type: Skin Tear left calf: Wound Type: Skin Tear Left knee: Wound Type: Skin Tear Therapies Extremity Affected:: Bilateral Lower Physical Therapy: Eval and Treat Occupational Therapy: Eval and Treat Speech Therapy: Eval and Treat Problem/Diagnosis (1) Behavior related to cognitive impairment: Status: Acute Code(s): R41.89 - Other symptoms and signs involving cognitive functions and awareness (2) Dementia: Status: Acute Code(s): F03.90 - Unspecified dementia, unspecified severity, without behavioral disturbance, psychotic disturbance, mood disturbance, and anxiety (3) Hypertension: Status: Chronic Code(s): I10 - Essential (primary) hypertension (4) Diabetes mellitus: Status: Acute Code(s): E11.9 - Type 2 diabetes mellitus without complications (5) Pubic ramus fracture: Status: Acute Code(s): S32.599A - Other specified fracture of unspecified pubis, initial encounter for closed fracture Allergies/Procedures Done in Hospital Allergies codeine Allergy (Verified 11/12/24 12:15) Rash morphine Allergy (Verified 11/12/24 12:15) Rash Type of Care/Length of Stay Estimated LOS: Convalescent Care Less Than 30 days Type of Care Needed: Skilled Rehab Potential: Good Prognosis: Good Additional Orders/Day of Discharge Day of Discharge: 01/07/25 Dietary and Speech Recommendations Dietitian Recommendations/Changes: Will adjust diet to carbohydrate-controlled (no caloric restriction). Will continue 120ml ensure plus HP 3 times per day w/ medpass as ordered. Will add 240mL glucerna shake w/ breakfast tray. Will liberalize diet as able if PO declines at meals. Discharge Plan Admission Admit Date/Time: 01/04/25 04:14 Attending Provider: Peter Baird Primary Care Provider: Mat Escalante Consulting Providers: Girish Arteaga; Rajeev Odonnell Discharge Orders/Prescriptions Prescriptions: New insulin lispro [Humalog KwikPen Insulin] 100 unit/mL Insulin Pen 8 unit subcut TIDAC Qty: 0 0RF insulin lispro [Humalog KwikPen Insulin] 100 unit/mL Insulin Pen See Protocol subcut ACHS Qty: 0 0RF Protocol: 3. Sliding Scale Insulin Med Dosing Condition: 150-189 mg/dl = 1 unit Condition: 190-229 mg/dl = 2 units Condition: 230-269 mg/dl = 3 units Condition: 270-309 mg/dl = 4 units Condition: 310-349 mg/dl = 5 units Condition: 350-399 mg/dl = 6 units Condition: 400-449 mg/dl = 7 units Condition: Greater than 449 call physician Protocol Text: Suggested for: - Patients on Total Daily Insulin Dose of 37-55 units - Obese, infected, or steroid patients MEDIUM DOSING ALGORITHIM potassium, sodium phosphates 280-160-250 mg Powder In Packet 1 packet PO BID 3 Days Qty: 6 0RF Eliquis 2.5 mg tablet 2.5 mg PO BID 30 Days Qty: 60 0RF Continued hydrochlorothiazide 12.5 mg tablet 12.5 mg PO DAILY Patient Comments: Take 1 tablet by mouth daily atorvastatin 40 mg tablet 40 mg PO DAILY Patient Comments: TAKE 1 TABLET DAILY timolol maleate 0.5 % drops 1 drp ophthalmic (eye) BID Patient Comments: 1 drop in right eye daily lisinopril 20 mg tablet 40 mg PO QDAY Austedo XR 18 mg tablet extended release 24 hr 18 mg PO QDAY Qty: 90 1RF escitalopram oxalate 10 mg tablet 10 mg PO DAILY Qty: 90 1RF mirtazapine 15 mg tablet 15 mg PO QHS Qty: 90 1RF dicyclomine 20 mg tablet 20 mg PO BID Qty: 28 0RF Rx Instructions: Take 30 minutes before 2 meals daily insulin aspart U-100 [Novolog FlexPen U-100 Insulin] 100 unit/mL (3 mL) insulin pen 1 sliding scale dose SUBCUT TID Patient Comments: INJECT 5 Units under the skin with breakfast and 7 units with lunch and dinner haloperidol 2 mg tablet 2 mg PO QHS Qty: 30 0RF Patient Comments: has not started yet as of 01/04/25 amantadine HCl 100 mg capsule 100 mg PO DAILY hydralazine 10 mg tablet 20 mg PO BID omeprazole 20 mg capsule,delayed release(DR/EC) 20 mg PO DAILY cinnamon bark [Cinnamon] 500 mg capsule 1,000 mg PO DAILY cholecalciferol (vitamin D3) [Vitamin D3] 25 mcg (1,000 unit) capsule 100 mcg PO QHS acetaminophen 500 mg Tablet 1,000 mg PO TID PRN (Reason: pain) Rx Instructions: Do not take more than 3000 mg Tylenol in a 24-hour period. Changed insulin glargine [Basaglar KwikPen U-100 Insulin] 100 unit/mL (3 mL) insulin pen 28 unit subcut QHS Qty: 15 0RF Held aspirin 81 mg Tablet,Chewable 81 mg PO DAILY Hold Instructions: Hold baby aspirin while taking Eliquis for 1 month Referrals / Follow Up: Mat Escalante MD [Primary Care Provider, Family Practice]
--- NOTE | 2025-01-07 12:27 | PCM.DC.SUM ---
Providers Date of Admission: 01/04/25 Date of Discharge: 01/07/25 Primary Care Physician: Dr. Mat Escalante MD Reason For Visit: FALL WITH PUBIC RAMI FRACTURE, DEMENTIA Diagnosis Discharge Diagnosis (1) Behavior related to cognitive impairment: Status: Acute Code(s): R41.89 - Other symptoms and signs involving cognitive functions and awareness (2) Dementia: Status: Acute Code(s): F03.90 - Unspecified dementia, unspecified severity, without behavioral disturbance, psychotic disturbance, mood disturbance, and anxiety (3) Hypertension: Status: Chronic Code(s): I10 - Essential (primary) hypertension (4) Diabetes mellitus: Status: Acute Code(s): E11.9 - Type 2 diabetes mellitus without complications (5) Pubic ramus fracture: Status: Acute Code(s): S32.599A - Other specified fracture of unspecified pubis, initial encounter for closed fracture Plan Patient is an 84-year-old lady who was brought in following a fall at home. Imaging studies demonstrated Acute mildly displaced fractures of the right superior inferior pubic rami. Mild osteopenia of the visualized bones. Degenerative joint disease. No dislocation is seen. Admitted to regular nursing floor for further management 1. Fall with pubic rami fracture ?Imaging studies demonstrated Acute mildly displaced fractures of the right superior inferior pubic rami. Mild osteopenia of the visualized bones. Degenerative joint disease. No dislocation is seen. Admitted to regular nursing floor for further management 01/07: Pain is well-controlled. Patient is being discharged today. Discharged on Eliquis 2.5 mg p.o. twice daily for 4 weeks for DVT prophylaxis for pelvic fracture. Urine culture shows multiple organisms suggestive of contamination. UTI ruled out 2. Physical debility ? Secondary to above. Continue PT OT eval and social media director to assist with discharge planning 3.. Diabetes mellitus type II Patient long-acting insulin continued in addition to, Accu-Cheks a.c. and at bedtime and covered with sliding scale insulin 4. Hypertension ? Blood pressure control not optimal did continue home meds with plans to adjust doses as needed 5. Dyslipidemia ?Patient is on statin therapy, continued at home dose 6. Depression with anxiety ? Patient is on escitalopram and Remeron at night 7. GERD ? On PPI 8. Dementia ? With episodic behavioral agitation and confusion 9. Anemia ? Secondary to chronic disorder monitoring H&H and transfuse if patient becomes symptomatic or hemoglobin falls below 7 01/06/2025 hemoglobin down to 9.8 will continue to monitor 01/07: H&H maintained 9.8/28%. Platelet count normal. 10. Mild hyponatremia ? Will monitor with repeat BMP in a.m. ? 01/06/2025; patient sodium level up to 135 01/07: Serum sodium 135. Normal . DVT prophylaxis ? Subcu heparin. Discharged on low-dose Eliquis 2.5 mg twice daily for 4 weeks Discharge medication reconciliation done. Discharge follow-up instructions completed. Discharge process discussed with the patient and all questions were answered to patient's satisfaction. Follow with PCP in 1 to 2 weeks Total time spent, exact 35 minutes on discharge meds reconciliation, examination, coordination of care with nurses and ancillary staff, review of imaging and blood test and discussion with the patient on follow-up instructions. Medications at Discharge Home Medications atorvastatin 40 mg tablet 40 mg PO DAILY cholesterol 02/28/22 hydrochlorothiazide 12.5 mg tablet 12.5 mg PO DAILY BP 02/28/22 timolol maleate 0.5 % eye drops 1 drp ophthalmic (eye) BID glacoma 02/28/22 lisinopril 20 mg tablet 40 mg PO QDAY BP 07/10/23 cholecalciferol (vitamin D3) 25 mcg (1,000 unit) capsule (Vitamin D3) 100 mcg PO QHS 12/08/23 cinnamon bark 500 mg capsule (Cinnamon) 1,000 mg PO DAILY cholesterol 12/08/23 omeprazole 20 mg capsule,delayed release 20 mg PO DAILY GERD 12/08/23 insulin aspart U-100 100 unit/mL (3 mL) subcutaneous pen (Novolog FlexPen U-100 Insulin aspart) 1 sliding scale dose subcut TID diabetes 05/31/24 dicyclomine 20 mg tablet 20 mg PO BID #28 tabs 10/25/24 deutetrabenazine 18 mg tablet,extended release 24 hr (Austedo XR) 18 mg PO QDAY #90 tabs 10/28/24 escitalopram oxalate 10 mg tablet 10 mg PO DAILY #90 tabs 10/28/24 mirtazapine 15 mg tablet 15 mg PO QHS #90 tabs 10/28/24 acetaminophen 500 mg tablet 1,000 mg PO TID PRN pain 11/04/24 aspirin 81 mg chewable tablet 81 mg PO DAILY heart health 11/04/24 Held on 01/07/25. Instructions: Hold baby aspirin while taking Eliquis for 1 month haloperidol 2 mg tablet 2 mg PO QHS #30 tabs 01/02/25 amantadine HCl 100 mg capsule 100 mg PO DAILY movement 01/04/25 hydralazine 10 mg tablet 20 mg PO BID BP 01/04/25 apixaban 2.5 mg tablet (Eliquis) 2.5 mg PO BID 30 days #60 tabs 01/07/25 insulin glargine 100 unit/mL (3 mL) subcutaneous pen (Basaglar KwikPen U-100 Insulin) 28 unit (0.28 mL) subcut QHS diabetes #15 mL 01/07/25 insulin lispro 100 unit/mL subcutaneous pen (Humalog KwikPen (U-100) Insulin) 8 unit (0.08 mL) subcut TIDAC #0 mL 01/07/25 insulin lispro 100 unit/mL subcutaneous pen (Humalog KwikPen (U-100) Insulin) See Protocol subcut ACHS #0 mL 01/07/25 potassium, sodium phosphates 280 mg-160 mg-250 mg oral powder packet 1 packet PO BID 3 days #6 ea 01/07/25 Hospital Course Summary of Care Provided Hospital Course: Clinical Impression(s) from Imaging Studies Knee X-Ray 01/04/25 01:34 IMPRESSION: Total knee arthroplasty with unremarkable metallic prosthesis. Prepatellar/suprapatellar soft tissue edema and swelling. Reading Location: [facility] Pelvis X-Ray 01/04/25 01:34 IMPRESSION: Acute mildly displaced fractures of the right superior inferior pubic rami. Reading Location: [facility] Elbow X-Ray 01/04/25 02:00 IMPRESSION: No evidence for acute abnormality. Reading Location: [facility] Brain CT 01/04/25 02:01 IMPRESSION: No acute cerebrovascular abnormalities. If clinical symptoms persist, further evaluation with MRI may be considered as clinically warranted. No intra or extra-axial acute hemorrhage. Bilateral cerebral microvascular ischemic changes with brain involutional changes. Stable. [facility] Cerv[facility] CT 01/04/25 02:01 IMPRESSION: Straightened cervical curve denoting myospasm. No vertebral fractures, structural collapse or acute dislocation. 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 Reading Location: [facility] Microbiology Past 72 Hours 01/04/25 02:30 Urine, Catheterized Urine Culture - Preliminary Escherichia coli Staphylococcus capitis Alpha hemolytic organism GPC Poss Enterococcus sp Laboratory Results 01/06/25 16:22: POC Glucose 268 H 01/06/25 22:02: POC Glucose 181 H 01/07/25 06:37: WBC 9.2, RBC 3.32 L, Hgb 9.8 L, Hct 28.3 L, MCV 85.2, MCH 29.5, MCHC 34.6, RDW Std Deviation 42.7, RDW Coeff of Dario 13.9, Plt Count 177, MPV 11.7, Immature Gran % (Auto) 0.400, Neut % (Auto) 66.0, Lymph % (Auto) 21.4, Merrick % (Auto) 9.6, Eos % (Auto) 2.2, Baso % (Auto) 0.4, Absolute Neuts (auto) 6.0, Absolute Lymphs (auto) 1.96, Nucleated RBC % 0, Sodium 135, Potassium 3.4, Chloride 100, Carbon Dioxide 26.4, Anion Gap 8, BUN 13, Creatinine 0.55 L, Estim Creat Clear Calc 44.40 L, Est GFR (MDRD) Non-Af 90, BUN/Creatinine Ratio 24.0 H, Glucose 198 H, Calcium 8.6 01/07/25 11:05: POC Glucose 240 H Physical Exam Narrative Seen and examined. Patient has bruise on the chin, left arm/forearm, right forearm and scab healed superficial skin use on left leg. Admitted with mildly displaced right superior and inferior pubic rami Physical exam General: Alert, Oriented x3, Cooperative HEENT: Atraumatic, PERRLA, EOMI, Normocephalic. Oral: No Gingival or Mucosal Lesions/ Ulcerations Neck: Supple, No JVD, Negative Carotid Bruits Chest wall/Lungs: Air entry diminished in bilateral lung bases. No crepitation/rhonchi Cardiovascular: Irregular rhythm, Normal S1,S2 systolic murmur Abdomen: Bowel Sounds Present, Soft, Non Tender, Non-Distended : No dysuria. No renal angle tenderness. No suprapubic tenderness. Extremities: Mild edema, Capillary Refill Less than 3 Seconds Skin: Bruises all over as described above. No significant deep ulcer but superficial skin erosions Musculoskeletal: Tenderness on right superior and inferior pubic rami. ROM restricted Neurological: Cranial nerves II-XII grossly intact, DTR 2+/4. No acute focal neurological deficit. Psych/Mental Status: Flat affect Medical Records Data Medical Nutrition Assessment Dietitian: Malnutrition Criteria Met Start: 01/04/25 14:42 Freq: Status: Active Protocol: Document 01/04/25 14:42 RMA (Rec: 01/04/25 14:42 RMA [id number]) Nutrition Malnutrition Evidence of Yes Malnutrition Exists Malnutrition (severe Chronic ): Evidenced By Suboptimal Energy Intake (Severe),Weight Loss (Severe) Intake Problem Decreased Nutrient Needs (specify) Etiology for carbohydrates related to hyperglycemia Signs/Symptoms as evidenced by blood glucose 171, 297 Status Active Problem Clinical Problem Chronic Disease or Condition Related Malnutrition Etiology severe protein-calorie malnutrition in the context of chronic disease and debility related to inadequate oral /energy intake Signs/Symptoms as evidenced by ~9-10% unintentional weight loss x 6 months and PO meeting less than 75% estimated nutrition needs x 6-12 months Status Active Problem Recommendation Dietitian Will adjust diet to carbohydrate-controlled (no caloric Recommendations/ restriction). Changes Will continue 120ml ensure plus HP 3 times per day w/ medpass as ordered. Will add 240mL glucerna shake w/ breakfast tray. Will liberalize diet as able if PO declines at meals. Weight / BMI Weight Weight: 136 lb 0.403 oz Body Mass Index (BMI) 23.3 ABG / Lab / Microbiology Data 01/07/25 06:37 01/07/25 06:37 Laboratory: Laboratory Results - last 24 hr 01/06/25 16:22: POC Glucose 268 H 01/06/25 22:02: POC Glucose 181 H 01/07/25 06:37: WBC 9.2, RBC 3.32 L, Hgb 9.8 L, Hct 28.3 L, MCV 85.2, MCH 29.5, MCHC 34.6, RDW Std Deviation 42.7, RDW Coeff of Dario 13.9, Plt Count 177, MPV 11.7, Immature Gran % (Auto) 0.400, Neut % (Auto) 66.0, Lymph % (Auto) 21.4, Merrick % (Auto) 9.6, Eos % (Auto) 2.2, Baso % (Auto) 0.4, Absolute Neuts (auto) 6.0, Absolute Lymphs (auto) 1.96, Nucleated RBC % 0, Sodium 135, Potassium 3.4, Chloride 100, Carbon Dioxide 26.4, Anion Gap 8, BUN 13, Creatinine 0.55 L, Estim Creat Clear Calc 44.40 L, Est GFR (MDRD) Non-Af 90, BUN/Creatinine Ratio 24.0 H, Glucose 198 H, Calcium 8.6 01/07/25 11:05: POC Glucose 240 H Microbiology: Microbiology 01/04/25 02:30 Urine, Catheterized Urine Culture - Preliminary Escherichia coli Staphylococcus capitis Alpha hemolytic organism GPC Poss Enterococcus sp D/C Instructions DC O2, CPAP, BIPAP Needs Home O2 Discharge instructions: No Meaningful Use Info Meaningful Use Meaningful Use Diagnoses (Choose all that apply): None applicable Discharge Plan Admission Admit Date/Time: 01/04/25 04:14 Attending Provider: Peter Baird Primary Care Provider: Mat Escalante Consulting Providers: Girish Arteaga; Rajeev Odonnell Discharge Orders/Prescriptions Prescriptions: New insulin lispro [Humalog KwikPen Insulin] 100 unit/mL Insulin Pen 8 unit subcut TIDAC Qty: 0 0RF insulin lispro [Humalog KwikPen Insulin] 100 unit/mL Insulin Pen See Protocol subcut ACHS Qty: 0 0RF Protocol: 3. Sliding Scale Insulin Med Dosing Condition: 150-189 mg/dl = 1 unit Condition: 190-229 mg/dl = 2 units Condition: 230-269 mg/dl = 3 units Condition: 270-309 mg/dl = 4 units Condition: 310-349 mg/dl = 5 units Condition: 350-399 mg/dl = 6 units Condition: 400-449 mg/dl = 7 units Condition: Greater than 449 call physician Protocol Text: Suggested for: - Patients on Total Daily Insulin Dose of 37-55 units - Obese, infected, or steroid patients MEDIUM DOSING ALGORITHIM potassium, sodium phosphates 280-160-250 mg Powder In Packet 1 packet PO BID 3 Days Qty: 6 0RF Eliquis 2.5 mg tablet 2.5 mg PO BID 30 Days Qty: 60 0RF Continued hydrochlorothiazide 12.5 mg tablet 12.5 mg PO DAILY Patient Comments: Take 1 tablet by mouth daily atorvastatin 40 mg tablet 40 mg PO DAILY Patient Comments: TAKE 1 TABLET DAILY timolol maleate 0.5 % drops 1 drp ophthalmic (eye) BID Patient Comments: 1 drop in right eye daily lisinopril 20 mg tablet 40 mg PO QDAY Austedo XR 18 mg tablet extended release 24 hr 18 mg PO QDAY Qty: 90 1RF escitalopram oxalate 10 mg tablet 10 mg PO DAILY Qty: 90 1RF mirtazapine 15 mg tablet 15 mg PO QHS Qty: 90 1RF dicyclomine 20 mg tablet 20 mg PO BID Qty: 28 0RF Rx Instructions: Take 30 minutes before 2 meals daily insulin aspart U-100 [Novolog FlexPen U-100 Insulin] 100 unit/mL (3 mL) insulin pen 1 sliding scale dose SUBCUT TID Patient Comments: INJECT 5 Units under the skin with breakfast and 7 units with lunch and dinner haloperidol 2 mg tablet 2 mg PO QHS Qty: 30 0RF Patient Comments: has not started yet as of 01/04/25 amantadine HCl 100 mg capsule 100 mg PO DAILY hydralazine 10 mg tablet 20 mg PO BID omeprazole 20 mg capsule,delayed release(DR/EC) 20 mg PO DAILY cinnamon bark [Cinnamon] 500 mg capsule 1,000 mg PO DAILY cholecalciferol (vitamin D3) [Vitamin D3] 25 mcg (1,000 unit) capsule 100 mcg PO QHS acetaminophen 500 mg Tablet 1,000 mg PO TID PRN (Reason: pain) Rx Instructions: Do not take more than 3000 mg Tylenol in a 24-hour period. Changed insulin glargine [Basaglar KwikPen U-100 Insulin] 100 unit/mL (3 mL) insulin pen 28 unit subcut QHS Qty: 15 0RF Held aspirin 81 mg Tablet,Chewable 81 mg PO DAILY Hold Instructions: Hold baby aspirin while taking Eliquis for 1 month Referrals / Follow Up: Mat Escalante MD [Primary Care Provider, Family Practice] Justo Dotson MD [Med Staff - Active Staff, Orthopedics] - Within 1 Month Disposition Disposition (needs filled in before D/C Order can be placed): Detention Facility Charges/Coding Visit Charges Inpatient E&M: 54742 Disch Hosp >30min
--- NOTE | 2025-01-07 13:19 | CASEMGMT ---
Social Work Precert has been obtained.? Physician updated and pt is ready for discharge today.? 7000 convalescent form completed in [facility].? SW met with pt and pt spouse and they are agreeable to discharge plan as stated above.? DCA and bedside nurse notified of discharge. DCA to complete all final arrangements and notifications. Disposition:[facility]?, skilled level of care under CARYN Peralta
--- NOTE | 2025-01-07 13:35 | NURSING ---
Attempted to call report to [facility]. Ana Laura connected me to nursing unit. After 20 rings, this nurse ended call. motor assembly supervisor set for 1415.
--- NOTE | 2025-01-07 13:44 | CASEMGMT ---
Discharge Planning Discharge orders, signed med list and transport time sent to [facility] via [facility]. Physicians will transport pt by cot at 2:15p. Nursing, SW, and pts updated. Elsie Figueroa DC Planning Asst.
--- NOTE | 2025-01-07 13:51 | PHA.DC_ITS ---
Pharmacy DC Med Reconciliation
--- NOTE | 2025-01-07 13:51 | PHA.DC.MR.R ---
Pharmacy SC Med Reconciliation Pharmacy Service has performed discharge medication reconciliation for this patient. The patient's discharge medication list was reviewed for discrepancies and discrepancies were resolved. Medications at Discharge Home Medications atorvastatin 40 mg tablet 40 mg PO DAILY cholesterol 02/28/22 hydrochlorothiazide 12.5 mg tablet 12.5 mg PO DAILY BP 02/28/22 timolol maleate 0.5 % eye drops 1 drp ophthalmic (eye) BID glacoma 02/28/22 lisinopril 20 mg tablet 40 mg PO QDAY BP 07/10/23 cholecalciferol (vitamin D3) 25 mcg (1,000 unit) capsule (Vitamin D3) 100 mcg PO QHS 12/08/23 cinnamon bark 500 mg capsule (Cinnamon) 1,000 mg PO DAILY cholesterol 12/08/23 omeprazole 20 mg capsule,delayed release 20 mg PO DAILY GERD 12/08/23 insulin aspart U-100 100 unit/mL (3 mL) subcutaneous pen (Novolog FlexPen U-100 Insulin aspart) 1 sliding scale dose subcut TID diabetes 05/31/24 dicyclomine 20 mg tablet 20 mg PO BID #28 tabs 10/25/24 deutetrabenazine 18 mg tablet,extended release 24 hr (Austedo XR) 18 mg PO QDAY #90 tabs 10/28/24 escitalopram oxalate 10 mg tablet 10 mg PO DAILY #90 tabs 10/28/24 mirtazapine 15 mg tablet 15 mg PO QHS #90 tabs 10/28/24 acetaminophen 500 mg tablet 1,000 mg PO TID PRN pain 11/04/24 aspirin 81 mg chewable tablet 81 mg PO DAILY heart health 11/04/24 Held on 01/07/25. Instructions: Hold baby aspirin while taking Eliquis for 1 month haloperidol 2 mg tablet 2 mg PO QHS #30 tabs 01/02/25 amantadine HCl 100 mg capsule 100 mg PO DAILY movement 01/04/25 hydralazine 10 mg tablet 20 mg PO BID BP 01/04/25 apixaban 2.5 mg tablet (Eliquis) 2.5 mg PO BID 30 days #60 tabs 01/07/25 insulin glargine 100 unit/mL (3 mL) subcutaneous pen (Basaglar KwikPen U-100 Insulin) 28 unit (0.28 mL) subcut QHS diabetes #15 mL 01/07/25 insulin lispro 100 unit/mL subcutaneous pen (Humalog KwikPen (U-100) Insulin) 8 unit (0.08 mL) subcut TIDAC #0 mL 01/07/25 insulin lispro 100 unit/mL subcutaneous pen (Humalog KwikPen (U-100) Insulin) See Protocol subcut ACHS #0 mL 01/07/25 potassium, sodium phosphates 280 mg-160 mg-250 mg oral powder packet 1 packet PO BID 3 days #6 ea 01/07/25
== END 2025-01-07 14:45 | DRG 542 ==
LOC: ED 03:44 → MS3 04:23
PROVIDERS: Internal Medicine; Admitting Provider Family Medicine; Emergency Provider Emergency Medicine; PCP Family Medicine; Visit Provider Internal Medicine
DX: M80.0AXA Age-related osteoporosis with current pathological fracture, other site, initial encounter for fracture (principal); E43 Unspecified severe protein-calorie malnutrition; F03.911 Unspecified dementia, unspecified severity, with agitation; S32.511A Fracture of superior rim of right pubis, initial encounter for closed fracture; E87.1 Hypo-osmolality and hyponatremia; D63.8 Anemia in other chronic diseases classified elsewhere; Z66 Do not resuscitate; E11.9 Type 2 diabetes mellitus without complications; I10 Essential (primary) hypertension; F32.A Depression, unspecified; Z79.4 Long term (current) use of insulin; K21.9 Gastro-esophageal reflux disease without esophagitis; M19.90 Unspecified osteoarthritis, unspecified site; W19.XXXA Unspecified fall, initial encounter; F41.9 Anxiety disorder, unspecified; E78.5 Hyperlipidemia, unspecified; M85.80 Other specified disorders of bone density and structure, unspecified site; Z79.899 Other long term (current) drug therapy; Z86.73 Personal history of transient ischemic attack (TIA), and cerebral infarction without residual deficits; Z68.24 Body mass index [BMI] 24.0-24.9, adult
CPT/HCPCS: 36415; 70450; 72125; 72170; 73080; 73562; 80048; 80053; 81001; 82962; 83735; 84100; 85025; 87077; 87086; 87088; 87186; 96372; 97162; 97166; 97530; 97535; 97802; 99285; P9612; A4216

== ENCOUNTER 2025-01-27 16:01 | Emergency (ER) | payer MEDICARE, OTHER, SELFPAY ==
[2025-01-27 16:02] VITALS: BP 136/69; PULSE 101; RESP 18; TEMP 36.8; O2SAT 99; BMI 27.0
[2025-01-27 16:06] VITALS: O2SAT 98
--- NOTE | 2025-01-27 16:19 | ED.VIS.FALL ---
HPI HPI - Fall History of Present Illness Chief Complaint: Fall Informant: patient Occured/Mechanism Occurred: Today Narrative: Movement fell off her toilet today. Pain/Injury Location: Occipital Pain Location: head Quality of Pain: Aching Worsened by: Nothing Relieved by: Nothing Associated Symptoms Associated Symptoms: Negative for Parasthesias, Weakness, Inability to ambulate, Loss of consciousness or Amnesia Narrative Narrative: Patient presents after a fall that occurred today. Patient states she fell off of the toilet today. Patient states she had the back of her head. Patient denies any loss of consciousness. Patient describes her pain as aching. Patient states nothing makes it better and nothing makes it worse. Patient denies any paresthesias or weakness. Patient states she is able to stand and ambulate to the EMS cot after the fall. Patient states she has had a prior fall with a pelvic fracture recently. [facility] Medical History Pubic ramus fracture Behavior related to cognitive impairment Dementia Blindness of right eye Anemia Gastric reflux Chest pain Wears hearing aid Wears contact lenses Post-menopausal Anxiety History of steroid therapy Thyroid disease Insulin dependent diabetes mellitus Ambulates with cane Arthritis High cholesterol Migraine headache TIA (transient ischemic attack) Difficulty swallowing Dietary restriction History of diverticulitis Non-smoker History of stress test History of rheumatic fever Tardive dyskinesia Major depressive disorder GERD (gastroesophageal reflux disease) Hypertension Hx of emotional problems Home Medications ?Medication ?Instructions ?Recorded ?Last Taken ?Type atorvastatin 40 mg tablet 40 mg PO DAILY cholesterol 02/28/22 01/03/25 History hydrochlorothiazide 12.5 mg tablet 12.5 mg PO DAILY BP 02/28/22 01/03/25 History timolol maleate 0.5 % eye drops 1 drp ophthalmic (eye) BID glacoma 02/28/22 01/03/25 History lisinopril 20 mg tablet 40 mg PO QDAY BP 07/10/23 01/03/25 History cholecalciferol (vitamin D3) 25 100 mcg PO QHS 12/08/23 Unknown History mcg (1,000 unit) capsule (Vitamin D3) cinnamon bark 500 mg capsule 1,000 mg PO DAILY cholesterol 12/08/23 01/03/25 History (Cinnamon) omeprazole 20 mg capsule,delayed 20 mg PO DAILY GERD 12/08/23 01/03/25 History release insulin aspart U-100 100 unit/mL 1 sliding scale dose subcut TID 05/31/24 01/03/25 History (3 mL) subcutaneous pen (Novolog diabetes FlexPen U-100 Insulin aspart) dicyclomine 20 mg tablet 20 mg PO BID #28 tabs 10/25/24 01/03/25 Rx deutetrabenazine 18 mg 18 mg PO QDAY #90 tabs 10/28/24 01/03/25 Rx tablet,extended release 24 hr (Austedo XR) escitalopram oxalate 10 mg tablet 10 mg PO DAILY #90 tabs 10/28/24 01/03/25 Rx mirtazapine 15 mg tablet 15 mg PO QHS #90 tabs 10/28/24 01/02/25 Rx acetaminophen 500 mg tablet 1,000 mg PO TID PRN pain 11/04/24 01/02/25 History aspirin 81 mg chewable tablet 81 mg PO DAILY heart health 11/04/24 01/03/25 History Held on 01/07/25. Instructions: Hold baby aspirin while taking Eliquis for 1 month haloperidol 2 mg tablet 2 mg PO QHS #30 tabs 01/02/25 Unknown Rx amantadine HCl 100 mg capsule 100 mg PO DAILY movement 01/04/25 01/03/25 History hydralazine 10 mg tablet 20 mg PO BID BP 01/04/25 01/03/25 History apixaban 2.5 mg tablet (Eliquis) 2.5 mg PO BID 30 days #60 tabs 01/07/25 Unknown Rx insulin glargine 100 unit/mL (3 28 unit (0.28 mL) subcut QHS 01/07/25 01/03/25 Rx mL) subcutaneous pen (Basaglar diabetes #15 mL KwikPen U-100 Insulin) insulin lispro 100 unit/mL 8 unit (0.08 mL) subcut TIDAC #0 mL 01/07/25 Unknown Rx subcutaneous pen (Humalog KwikPen (U-100) Insulin) insulin lispro 100 unit/mL See Protocol subcut ACHS #0 mL 01/07/25 Unknown Rx subcutaneous pen (Humalog KwikPen (U-100) Insulin) potassium, sodium phosphates 280 1 packet PO BID 3 days #6 ea 01/07/25 Unknown Rx mg-160 mg-250 mg oral powder packet Allergy/AdvReac Type Severity Reaction Status Date / Time codeine Allergy Rash Verified 01/27/25 16:04 morphine Allergy Rash Verified 01/27/25 16:04 Family History Sister Cancer Surgical History 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 Hx of left cataract extraction Hx of right cataract extraction History of esophagogastroduodenoscopy (EGD) Hx of colonoscopy History of carpal tunnel surgery of right wrist History of carpal tunnel surgery of left wrist History of knee replacement H/O repair of rotator cuff H/O: hysterectomy H/O thyroidectomy Social History Smoking Status: Never smoker alcohol intake: never substance use type: does not use ROS ROS ED Constitutional Constitutional ED: Denies chills or fever(s) Eyes Eyes: Denies blurry vision or change in vision ENT ENT ED: Denies rhinorrhea or sore throat Cardiovascular Cardiovascular: Denies chest pain or palpitations Respiratory/Chest Respiratory/Chest: Denies cough or dyspnea Gastrointestinal Gastrointestinal: Denies nausea or vomiting Genitourinary Genitourinary ED: Denies dysuria or hematuria Musculoskeletal Musculoskeletal: Denies back pain or neck pain Integumentary Denies abscess or rash Neurologic Neurologic: Reports headache(s); Denies weakness Allergic/Immunologic Allergic/Immunologic ED: Denies mouth swelling or urticaria EXAM Physical Exam Const Vital Signs: 01/27/25 16:02 01/27/25 16:06 Temperature 98.3 F Temperature Source Oral Pulse Rate 101 H Respiratory Rate 18 Respiratory Effort Normal Non-Labored Respiratory Depth Normal Respiratory Pattern Normal Blood Pressure 136/69 H Blood Pressure Mean 91 Pulse Ox 99 98 Oxygen Delivery Method Room Air Room Air Positive well nourished and well developed General Appearance ED: well developed and NAD HEENT Reports normocephalic HEENT Narrative: There is tenderness noted occipital scalp. There is no laceration noted. There is no bony crepitance or step-off. There is no ecchymosis noted. There are no abrasions noted. Neck full ROM and supple General: Negative for tenderness Chest Wall inspection of chest normal and palpation of chest normal Resp normal respiratory effort and clear to auscultation bilaterally Cardio regular rate and regular rhythm GI non-tender and non-distended Neuro CN's II-XII intact bilaterally, moves all extremities, no focal motor deficits and no sensory deficits noted Hermila Coma Scale: document GCS findings Spontaneous Obeys Commands Oriented 15 Sensorium / Orientation: alert Motor Exam: strength 5/5 throughout Psych mental status grossly normal and thought process normal MDM MDM MDM Narrative Medical decision making narrative: Differential diagnosis includes intracranial bleeding, closed head injury, and contusion. CT scan of the brain will be obtained to assess for intracranial bleeding. Lab Data Labs: Laboratory Results - last 24 hr 01/27/25 17:02 POC Glucose 239 H Radiography Diagnostic Testing: Clinical Impression(s) from Imaging Studies Brain CT 01/27/25 16:30 IMPRESSION: 1. No acute intracranial abnormality. 2. Age-related senescent changes. Reading Location: [facility] CT scan of the brain was obtained. There is no acute intracranial abnormality. This was interpreted by the radiologist. I also reviewed the images and did not intracranial bleeding. Discharge Plan Triage Chief Complaint: Fall ED Provider: Esteban Ely Dx/Rx/DC Orders Clinical Impression: Closed head injury, Fall Instructions: ED Head Injury (Adult) Prescriptions: No Action hydrochlorothiazide 12.5 mg tablet 12.5 mg PO DAILY Patient Comments: Take 1 tablet by mouth daily atorvastatin 40 mg tablet 40 mg PO DAILY Patient Comments: TAKE 1 TABLET DAILY timolol maleate 0.5 % drops 1 drp ophthalmic (eye) BID Patient Comments: 1 drop in right eye daily lisinopril 20 mg tablet 40 mg PO QDAY Austedo XR 18 mg tablet extended release 24 hr 18 mg PO QDAY Qty: 90 1RF escitalopram oxalate 10 mg tablet 10 mg PO DAILY Qty: 90 1RF mirtazapine 15 mg tablet 15 mg PO QHS Qty: 90 1RF dicyclomine 20 mg tablet 20 mg PO BID Qty: 28 0RF Rx Instructions: Take 30 minutes before 2 meals daily insulin aspart U-100 [Novolog FlexPen U-100 Insulin] 100 unit/mL (3 mL) insulin pen 1 sliding scale dose SUBCUT TID Patient Comments: INJECT 5 Units under the skin with breakfast and 7 units with lunch and dinner haloperidol 2 mg tablet 2 mg PO QHS Qty: 30 0RF Patient Comments: has not started yet as of 01/04/25 amantadine HCl 100 mg capsule 100 mg PO DAILY hydralazine 10 mg tablet 20 mg PO BID insulin lispro [Humalog KwikPen Insulin] 100 unit/mL Insulin Pen 8 unit subcut TIDAC Qty: 0 0RF insulin lispro [Humalog KwikPen Insulin] 100 unit/mL Insulin Pen See Protocol subcut ACHS Qty: 0 0RF Protocol: 3. Sliding Scale Insulin Med Dosing Condition: 150-189 mg/dl = 1 unit Condition: 190-229 mg/dl = 2 units Condition: 230-269 mg/dl = 3 units Condition: 270-309 mg/dl = 4 units Condition: 310-349 mg/dl = 5 units Condition: 350-399 mg/dl = 6 units Condition: 400-449 mg/dl = 7 units Condition: Greater than 449 call physician Protocol Text: Suggested for: - Patients on Total Daily Insulin Dose of 37-55 units - Obese, infected, or steroid patients MEDIUM DOSING ALGORITHIM potassium, sodium phosphates 280-160-250 mg Powder In Packet 1 packet PO BID 3 Days Qty: 6 0RF Eliquis 2.5 mg tablet 2.5 mg PO BID 30 Days Qty: 60 0RF insulin glargine [Basaglar KwikPen U-100 Insulin] 100 unit/mL (3 mL) insulin pen 28 unit subcut QHS Qty: 15 0RF omeprazole 20 mg capsule,delayed release(DR/EC) 20 mg PO DAILY cinnamon bark [Cinnamon] 500 mg capsule 1,000 mg PO DAILY cholecalciferol (vitamin D3) [Vitamin D3] 25 mcg (1,000 unit) capsule 100 mcg PO QHS acetaminophen 500 mg Tablet 1,000 mg PO TID PRN (Reason: pain) Rx Instructions: Do not take more than 3000 mg Tylenol in a 24-hour period. aspirin 81 mg Tablet,Chewable 81 mg PO DAILY Primary Care Provider: Mat Escalante Referrals: Mat Escalante MD [Primary Care Provider, Family Practice] - 5-7 Days Print Language: Taiwanese Disposition Disposition: Custodial Facility Discharge Location: [facility]
--- NOTE | 2025-01-27 16:30 | CT_ITS ---
PROCEDURE: BRAIN/HEAD WITHOUT CONTRAST 01/27/2025 REASON FOR EXAM: HEAD INJURY TECHNIQUE: Procedure Code: CTBR Modality: CT Procedure: BRAIN/HEAD WITHOUT CONTRAST Coronal and Sagittal reconstruction series were provided. One or more dose reduction techniques were used (e.g., Automated exposure control, adjustment of the mA and/or kV according to patient size, use of iterative reconstruction technique. RADIATION DOSE SUMMARY: CTDlvol: 44.99 mGy DLP: 779 mGycm COMPARISON: 01/04/2025 FINDINGS: BRAIN: No acute intraparenchymal hemorrhage. No mass lesion. No CT evidence for acute territorial infarct. No midline shift or extra-axial collection. Diffuse cerebral volume loss with corresponding ventricular prominence. Patchy periventricular white matter low attenuation, likely microvascular ischemic changes. VENTRICLES: No hydrocephalus. ORBITS: Intraocular lens implants bilaterally. The orbits are otherwise unremarkable. SINUSES AND MASTOIDS: The paranasal sinuses and mastoid air cells are clear. SOFT TISSUES: No acute abnormality seen. No radiodense foreign body. Calcified trichilemmal cyst in the parietal scalp left of midline. BONES: The calvarium is intact. No acute osseous abnormality seen. OTHER: Carotid siphon calcification bilaterally. CT/Brain/Head without Contrast IMPRESSION: 1. No acute intracranial abnormality. 2. Age-related senescent changes. Reading Location: [id number]
[2025-01-27 17:46] VITALS: BP 132/70; PULSE 78; RESP 18; TEMP 36.6; O2SAT 100
[2025-01-27 20:00] VITALS: BP 154/81; PULSE 102; RESP 18
[2025-01-27 20:07] VITALS: BP 154/81; PULSE 102; RESP 18; TEMP 36.6; O2SAT 100
== END 2025-01-27 20:08 | disposition skilled nursing facility (03) ==
PROVIDERS: Emergency Provider Emergency Medicine; PCP Family Medicine; Visit Provider Emergency Medicine
DX: S09.90XA Unspecified injury of head, initial encounter (principal); E11.9 Type 2 diabetes mellitus without complications; I10 Essential (primary) hypertension; E78.00 Pure hypercholesterolemia, unspecified; K21.9 Gastro-esophageal reflux disease without esophagitis; R51.9 Headache, unspecified; W18.12XA Fall from or off toilet with subsequent striking against object, initial encounter
CPT/HCPCS: 70450; 82962; 99285